=== PATIENT | female | born 1935 | race Caucasian/White ===

== ENCOUNTER 2019-04-04 18:17 | Emergency (ER) | payer BC ==
[~2019-04-04] VITALS: Ht 165.1 cm; Wt 63.5 kg
[2019-04-04 18:17] VITALS: BP 115/45
--- NOTE | 2019-04-04 18:17 | NUR ---
ED Nurse Note: PT BROUGHT IN BY RA Zavaleta FROM [facility] DUE TO WEAKNESS AND HYPOTENSION X 1 HOUR. HX OF AFIB. NS 500ML RUNNING GIVEN BY RA Zavaleta. AAO X 4, FOLLOWS COMMANDS WITH MILD SOB NOTED AT REST.
[2019-04-04] MEDS ORDERED: PREDNISONE5 M4 PO (18:28)
[2019-04-04] MEDS ORDERED: VITAMIN D-32000 UNI2 PO (18:28)
[2019-04-04] MEDS ORDERED: HYDROCODON-ACE1 EA15 ORAL (18:28)
[2019-04-04] MEDS ORDERED: ACETAZOLAMIDE125 MG ORAL (18:28)
[2019-04-04] MEDS ORDERED: SYNTHROID200 MCG ORAL (18:28)
[2019-04-04] MEDS ORDERED: SENNA8.6 M2 PO (18:28)
[2019-04-04] MEDS ORDERED: BACLOFEN10 MG ORAL (18:28)
[2019-04-04] MEDS ORDERED: CARDIZEM30 MG ORAL (18:28)
[2019-04-04] MEDS ORDERED: IPRATROPIU0.2 MG/1 M HHN (18:28)
[2019-04-04] MEDS ORDERED: ALDACTAZIDE 251 EACH ORAL (18:28)
[2019-04-04] MEDS ORDERED: DIGOXIN125 MCG ORAL (18:28)
[2019-04-04] MEDS ORDERED: POTASSIUM CHLO10 ME2 PO (18:28)
[2019-04-04] MEDS ORDERED: ACETAMINOPHEN500 M5 ORAL (18:28)
[2019-04-04] MEDS ORDERED: PANTOPRAZOLE SO20 MG ORAL (18:28)
--- NOTE | 2019-04-04 18:40 | NUR ---
ED Nurse Note: DR ROGEL WAS NOTIFIEDM OF OXYGEN SAT OF 86% IN ROOM AIR. ER MD ORDERED OXYGEN AT 2LPM.
--- NOTE | 2019-04-04 18:42 | NUR ---
ED Nurse Note: CALLED RT FOR BIPAP.
--- NOTE | 2019-04-04 19:06 | NUR ---
Laly Ritchie (emergency contact #1) called , left her phone number [phone] to be called if needed, also states patient should be going to [facility]).
--- NOTE | 2019-04-04 19:09 | NUR ---
HAND-OFF: Report given to ORALIA JOHNSON.
[2019-04-04 19:13] VITALS: BP 111/55
--- NOTE | 2019-04-04 19:13 | NUR ---
ED Nurse Note: Pt report received from ALEX Nunn. Pt is aaox4, on bipap at this time with settings noted within chart. Pt has 20g IV in R AC and 20g IV in L forearm that are both patent and intact. IV fluids infusing at this time. Pt vss as charted. Will continue to monitor.
[2019-04-04 19:20] LABS: HEMATOCRIT 37.9 % (37.0-47.0); HEMOGLOBIN 11.4 G/DL (12.0-16.0); MEAN CORPUSCULAR VOLUME 88 FL (80-99); PLATELET COUNT 229 K/UL (150-450); RED BLOOD COUNT 4.32 M/UL (4.20-5.40); RED CELL DISTRIBUTION WIDTH 18.9 % (11.6-14.8); WHITE BLOOD COUNT 10.6 K/UL (4.8-10.8)
--- NOTE | 2019-04-04 19:22 | NUR ---
ED Nurse Note: Pt states she does not have to urinate at this time and unable to give urine specimen.
--- NOTE | 2019-04-04 19:26 | Emergency Room Report ---
History of Present Illness General Chief Complaint: Generalized Weakness Source: EMS Present Illness HPI Patient is an 84-year-old female brought in by EMS after increased generalized weakness and shortness of breath. Patient had prior history of atrial fibrillation. She had been sent in from nursing facility. She was noted to have low blood pressure by EMS and was started on IV fluids.Patient was noted to be somewhat swollen. Allergies: Coded Allergies: DOXYCYCLINE (Verified Allergy, Unknown, 04/04/19) RIFAMPIN (Verified Allergy, Unknown, 04/04/19) Patient History Past Medical History: see triage record, old chart reviewed Reviewed Nursing Documentation: PMH: Agreed; PSxH: Agreed Nursing Documentation-PMH Hx Cardiac Problems: Yes - AFIB, ANEMIA, ATHEROSCLEROTIC HEART DISEASE Hx COPD: Yes Review of Systems All Other Systems: limited - Limited by mental status Physical Exam Vital Signs Date Time Temp Pulse Resp B/P (MAP) Pulse Ox O2 Delivery O2 Flow Rate FiO2 04/04/19 18:07 56 24 106/76 (86) 96 Room Air 04/04/19 18:45 40 Sp02 EP Interpretation: reviewed, normal General Appearance: normal inspection, GCS 15, obese, Chronically Ill ENT: normal ENT inspection, hearing grossly normal, normal voice Neck: normal inspection, full range of motion, supple, no bony tend Respiratory: normal inspection, no retraction Cardiovascular #1: regular rate, rhythm, edema Gastrointestinal: normal inspection, normal bowel sounds, non tender, soft, no guarding, no hernia Genitourinary: no CVA tenderness Musculoskeletal: normal inspection, back normal, normal range of motion Neurologic: alert, oriented x3, responsive, speech normal, normal inspection Psychiatric: normal inspection, judgement/insight normal, mood/affect normal Skin: no rash Medical Decision Making Diagnostic Impression: Primary Impression: CHF (congestive heart failure) Additional Impressions: Hypoxia Metabolic acidosis ER Course Patient presented for increased generalized weakness and hypotension. Differential diagnosis include was not limited to pneumonia,CHF, COPD, sepsis among others. Because of complexity of patient's case laboratory tests and imaging studies were ordered. Patient's EKG showed atrial fibrillation with normal ventricular response. Chest x-ray 1 view interpreted by me showed cardiomegaly with vascular congestion consistent with CHF. Patient was noted to have diminished oxygen saturation initially. She was started on BiPAP. Patient's initial blood pressure was noted to be somewhat hypotensive in which she was given a bolus of IV fluids initially. Nitropaste was applied. Patient was noted to have some improvement her blood pressure subsequently. Patient was also given IV antibiotics Patient was discussed with Dr.El Sheridan and patient will be transferred to [facility] for further evaluation and treatment. Labs Test 04/04/19 18:35 04/04/19 19:07 Arterial Blood pH 7.296 (7.350-7.450) Arterial Blood Partial Pressure CO2 45.5 mmHg (35.0-45.0) Arterial Blood Partial Pressure O2 54.1 mmHg (75.0-100.0) Arterial Blood HCO3 21.7 mmol/L (22.0-26.0) Arterial Blood Oxygen Saturation 83.5 % (95-100) Arterial Blood Base Excess -4.7 (-2-2) Chester Test Positive White Blood Count 10.6 K/UL (4.8-10.8) Red Blood Count 4.32 M/UL (4.20-5.40) Hemoglobin 11.4 G/DL (12.0-16.0) Hematocrit 37.9 % (37.0-47.0) Mean Corpuscular Volume 88 FL (80-99) Mean Corpuscular Hemoglobin 26.5 PG (27.0-31.0) Mean Corpuscular Hemoglobin Concent 30.1 G/DL (32.0-36.0) Red Cell Distribution Width 18.9 % (11.6-14.8) Platelet Count 229 K/UL (150-450) Mean Platelet Volume 5.7 FL (6.5-10.1) Neutrophils (%) (Auto) % (45.0-75.0) Lymphocytes (%) (Auto) % (20.0-45.0) Monocytes (%) (Auto) % (1.0-10.0) Eosinophils (%) (Auto) % (0.0-3.0) Basophils (%) (Auto) % (0.0-2.0) Prothrombin Time 10.2 SEC (9.30-11.50) Prothromb Time International Ratio 1.0 (0.9-1.1) Activated Partial Thromboplast Time 27 SEC (23-33) Sodium Level 138 MMOL/L (136-145) Potassium Level 3.8 MMOL/L (3.5-5.1) Chloride Level 103 MMOL/L (98-107) Carbon Dioxide Level 26 MMOL/L (21-32) Anion Gap 10 mmol/L (5-15) Blood Urea Nitrogen 35 mg/dL (7-18) Creatinine 1.0 MG/DL (0.55-1.30) Estimat Glomerular Filtration Rate mL/min (>60) Glucose Level 205 MG/DL (74-106) Calcium Level 10.2 MG/DL (8.5-10.1) Troponin I 0.035 ng/mL (0.000-0.056) EKG Diagnostic Results Rate: normal - atri Rhythm: other - atrial fibrillation Last Vital Signs Date Time Temp Pulse Resp B/P (MAP) Pulse Ox O2 Delivery O2 Flow Rate FiO2 04/04/19 19:13 75 17 111/55 100 Room Air 40 Status: improved Disposition: [facility] Condition: Stable Referrals: [facility],REFERRING (PCP) Chandler Peralta MD Apr 04, 2019 19:26
[2019-04-04] MEDS ORDERED: Nitroglycerin 2% oint pkt TOPIC ONE (19:30)
--- NOTE | 2019-04-04 19:41 | NUR ---
Face sheet, EKG and clinicals faxed to Jackie at [phone] per her request.
[2019-04-04 19:43] LABS: ANION GAP 10 mmol/L (5-15); BLOOD UREA NITROGEN 35 mg/dL (7-18); CALCIUM 10.2 MG/DL (8.5-10.1); CARBON DIOXIDE 26 MMOL/L (21-32); CHLORIDE 103 MMOL/L (98-107); POTASSIUM 3.8 MMOL/L (3.5-5.1); SODIUM 138 MMOL/L (136-145)
[2019-04-04 19:57] LABS: ALANINE AMINOTRANSFERASE 23 U/L (12-78); ALBUMIN 3.7 G/DL (3.4-5.0); ALKALINE PHOSPHATASE 68 U/L (46-116); ASPARTATE AMINO TRANSFERASE 17 U/L (15-37); BILIRUBIN,TOTAL 0.3 MG/DL (0.2-1.0); CREATINE KINASE 14 U/L (26-308); PHOSPHORUS 3.4 MG/DL (2.5-4.9)
[2019-04-04] MEDS ORDERED: Unasyn 1.5gm Vial ONE (19:59)
[2019-04-04] MEDS ORDERED: NS 110 ML ONE (19:59)
[2019-04-04] MEDS ORDERED: Ampicillin/Sulbactam Sod 3 GM in NS 110 ML IVPB ONE (20:00)
--- NOTE | 2019-04-04 20:45 | NUR ---
ED Nurse Note: Repeat lactic drawn by RN and sent to lab.
[2019-04-04 21:28] VITALS: BP 103/54
--- NOTE | 2019-04-04 22:33 | NUR ---
Laly(cousin, 1st contact) contacted and informed of patient being transferred to [facility].
[2019-04-04 22:39] VITALS: BP 119/56
--- NOTE | 2019-04-04 22:39 | NUR ---
ED Nurse Note: Pt sleeping comfortably at this time. No acute distress noted. Will continue to monitor. Vss as charted.
--- NOTE | 2019-04-04 22:45 | NUR ---
ED Nurse Note: Report given to ALEX Rutledge at [facility] for transfer.
--- NOTE | 2019-04-05 00:08 | NUR ---
[facility] is here now to transport patient.
[2019-04-05 00:35] VITALS: BP 109/60
--- NOTE | 2019-04-05 00:35 | NUR ---
ED Nurse Note: Pt being transferred to [facility] for continuation of care at this time. Pt transported by [facility], [facility] ambulance unit 700. Pt is aaox4, pt placed on nonrebreather for transport at 15L oxygen and is tolerating well. Pt is stable for transport. Pt IVs on R AC and L forearm are patent and intact. Pt verbalized understanding of transport. Pt belongings sent with patient/ems crew.
--- NOTE | 2019-04-05 12:45 | Diagnostic Imaging Report ---
Indication: Dyspnea Comparison: None A single view chest radiograph was obtained. Findings: There is enlargement of the cardiac silhouette with pulmonary vascular redistribution and prominence, hazy vessel margins and the suggestion of interstitial edema consistent with CHF. Aorta is mildly calcified. Bones are osteopenic. No pleural effusion seen. IMPRESSION: CHF
== END 2019-04-05 00:35 | disposition short-term general hospital (02) ==
LOC: EDBD 18:17 → EMR 18:49 → EDBEDREQ 18:51 → EMR 04-05 00:35
DX: I50.9 Heart failure, unspecified (principal); R09.02 Hypoxemia; E87.2 Acidosis; E66.9 Obesity, unspecified; Z88.8 Allergy status to other drugs, medicaments and biological substances; J44.9 Chronic obstructive pulmonary disease, unspecified; I25.10 Atherosclerotic heart disease of native coronary artery without angina pectoris; I48.91 Unspecified atrial fibrillation
CPT/HCPCS: 36415; 36600; 71045; 80053; 82550; 82553; 82803; 83605; 83735; 83880; 84100; 84484; 85007; 85025; 85610; 85730; 86850; 86900; 86901; 87040; 93005; 94664; 96361; 96365; 99285; J0295

== ENCOUNTER 2020-01-01 00:01 | Inpatient (IN) | payer BC, OTHER ==
[~2020-01-01] VITALS: Ht 157.5 cm; Wt 68.0 kg
[2020-01-01] VITALS (9 sets, daily range): BP systolic 104–154; BP diastolic 52–97
[~2020-01-01 00:01] MED LIST: ACETAMINOPHEN500 M5 ORAL; ACETAZOLAMIDE125 MG ORAL; ALDACTAZIDE 251 EACH ORAL; BACLOFEN10 MG ORAL; CARDIZEM30 MG ORAL; DIGOXIN125 MCG ORAL; HYDROCODON-ACE1 EA15 ORAL; IPRATROPIU0.2 MG/1 M HHN; PANTOPRAZOLE SO20 MG ORAL; POTASSIUM CHLO10 ME2 PO; PREDNISONE5 M4 PO; SENNA8.6 M2 PO; SYNTHROID200 MCG ORAL; VITAMIN D-32000 UNI2 PO
--- NOTE | 2020-01-01 00:05 | NUR ---
ED Nurse Note: pt PEARL AMANDA RA 26 from [facility] for SOB, EMS report that pt was satting at 85% on 2L NC. pt is normally on 2L at the facility, EMS placed pt on 10L NRB mask and brought her saturation up to 100%. pt presents tachypneic at 30 respirations a minute, she is responsive to pain and occasionally opens her eyes. EMS do not know what baseline is for pt. pt's skin is hot to touch, otherwise intact. pt has L forearm IV line placed at [facility] that is flushing, patent and intact
--- NOTE | 2020-01-01 00:10 | NUR ---
ED Nurse Note: R forearm 20 gauge IV line establishd. blood, urine and COVID swab sent to lab. rectal temp is 102.5, ERMD notified
--- NOTE | 2020-01-01 00:13 | Emergency Room Report ---
History of Present Illness Present Illness HPI Patient is an 84-year-old female sent in from convalescent home after diminished oxygen saturation. Patient was sent in from [facility]. Patient was noted to have prior history of chronic respiratory failure as well as atrial fibrillation. She is normally on digoxin. Was noted to have low oxygen saturation at her facility. Patient started on nonrebreather by EMS. History is markedly limited by patient's mental status. Allergies: Coded Allergies: DOXYCYCLINE (Verified Allergy, Unknown, 04/04/19) RIFAMPIN (Verified Allergy, Unknown, 04/04/19) Patient History Past Medical History: see triage record Reviewed Nursing Documentation: PMH: Agreed; PSxH: Agreed Nursing Documentation-PMH Hx Cardiac Problems: Yes - AFIB, ANEMIA, ATHEROSCLEROTIC HEART DISEASE Hx COPD: Yes Review of Systems All Other Systems: negative except mentioned in HPI Physical Exam Sp02 EP Interpretation: reviewed, normal General Appearance: normal inspection, non-toxic, obese, Chronically Ill Head: atraumatic ENT: normal ENT inspection, hearing grossly normal, normal voice Neck: supple, no bony tend, limited range of motion Respiratory: normal inspection, no respiratory distress, no retraction, rales Cardiovascular #1: regular rate, rhythm, edema Gastrointestinal: normal inspection, normal bowel sounds, non tender, soft, no guarding, no hernia Genitourinary: no CVA tenderness Musculoskeletal: back normal Neurologic: oriented x3, other - Somnolent with gag reflex present, withdraws to pain Skin: palpation normal Procedures Critical Care Time Critical Care Time Patient had a critical medical condition which untreated could potentially result in life or limb threatening injury. Total critical care time excluding procedures approximately 45 minutes. Medical Decision Making Diagnostic Impression: Primary Impression: 2019 novel coronavirus detected Additional Impressions: CHF (congestive heart failure) Atrial fibrillation CO2 retention Chronic respiratory failure ER Course Patient presented for shortness of breath and desaturation. Differential diagnosis include was not limited to pneumonia, congestive heart failure, coronavirus infection, CO2 narcosis among others. Because of complexity of patient's case laboratory tests and imaging studies were ordered.Patient laboratory testing was noted for elevated BNP with negative troponin. Given IV Decadron. Arterial blood gas showed CO2 retention. Patient was initially on nonrebreather was subsequently switched to BiPAP. Repeat ABG showed improvement in CO2 with continued respiratory acidosis. Patient's inspiratory pressure was subsequently increased. Patient was discussed with Dr. Peguero for inpatient management due to physician covering for Dr. Jansen who is patient primary care. Labs Test 01/01/20 00:15 01/01/20 00:30 01/01/20 01:15 White Blood Count 9.6 K/UL (4.8-10.8) Red Blood Count 4.46 M/UL (4.20-5.40) Hemoglobin 11.8 G/DL (12.0-16.0) Hematocrit 38.3 % (37.0-47.0) Mean Corpuscular Volume 86 FL (80-99) Mean Corpuscular Hemoglobin 26.4 PG (27.0-31.0) Mean Corpuscular Hemoglobin Concent 30.7 G/DL (32.0-36.0) Red Cell Distribution Width 16.6 % (11.6-14.8) Platelet Count 180 K/UL (150-450) Mean Platelet Volume 7.6 FL (6.5-10.1) Neutrophils (%) (Auto) 75.5 % (45.0-75.0) Lymphocytes (%) (Auto) 5.8 % (20.0-45.0) Monocytes (%) (Auto) 12.6 % (1.0-10.0) Eosinophils (%) (Auto) 0.1 % (0.0-3.0) Basophils (%) (Auto) 6.1 % (0.0-2.0) Prothrombin Time 10.7 SEC (9.30-11.50) Prothromb Time International Ratio 1.0 (0.9-1.1) Activated Partial Thromboplast Time 28 SEC (23-33) D-Dimer 0.87 mg/L FEU (0.00-0.49) Sodium Level 137 MMOL/L (136-145) Potassium Level 4.9 MMOL/L (3.5-5.1) Chloride Level 98 MMOL/L (98-107) Carbon Dioxide Level 37 MMOL/L (21-32) Anion Gap 2 mmol/L (5-15) Blood Urea Nitrogen 29 mg/dL (7-18) Creatinine 0.9 MG/DL (0.55-1.30) Estimat Glomerular Filtration Rate 59.7 mL/min (>60) Glucose Level 149 MG/DL (74-106) Lactic Acid Level 0.70 mmol/L (0.4-2.0) Calcium Level 10.1 MG/DL (8.5-10.1) Ferritin 1762 NG/ML (8-388) Total Bilirubin 0.5 MG/DL (0.2-1.0) Aspartate Amino Transf (AST/SGOT) 32 U/L (15-37) Alanine Aminotransferase (ALT/SGPT) 18 U/L (12-78) Alkaline Phosphatase 49 U/L (46-116) Lactate Dehydrogenase 321 U/L (81-234) Total Creatine Kinase 28 U/L (26-308) Creatine Kinase MB 0.6 NG/ML (0.0-3.6) Creatine Kinase MB Relative Index 2.1 Troponin I 0.062 ng/mL (0.000-0.056) C-Reactive Protein, Quantitative 16.7 mg/dL (0.00-0.90) Pro-B-Type Natriuretic Peptide 3923 pg/mL (0-125) Total Protein 8.1 G/DL (6.4-8.2) Albumin 3.1 G/DL (3.4-5.0) Globulin 5.0 g/dL Albumin/Globulin Ratio 0.6 (1.0-2.7) Lipase 114 U/L (73-393) Digoxin Level < 0.2 NG/ML (0.9-2.0) Urine Color Yellow Urine Appearance Slightly cloudy Urine pH 5 (4.5-8.0) Urine Specific [place]on 1.020 (1.005-1.035) Urine Protein 3+ (NEGATIVE) Urine Glucose (UA) Negative (NEGATIVE) Urine Ketones Negative (NEGATIVE) Urine Blood 3+ (NEGATIVE) Urine Nitrite Negative (NEGATIVE) Urine Bilirubin Negative (NEGATIVE) Urine Urobilinogen 1 MG/DL (0.0-1.0) Urine Leukocyte Esterase Negative (NEGATIVE) Urine RBC 5-10 /HPF (0 - 2) Urine WBC 0-2 /HPF (0 - 2) Urine Squamous Epithelial Cells Few /LPF (NONE/OCC) Urine Amorphous Sediment Moderate /LPF (NONE) Urine Bacteria Few /HPF (NONE) Urine Coarse Granular Casts 0-2 /LPF (NONE) Arterial Blood pH 7.183 (7.350-7.450) Arterial Blood Partial Pressure CO2 129.0 mmHg (35.0-45.0) Arterial Blood Partial Pressure O2 170.0 mmHg (75.0-100.0) Arterial Blood HCO3 47.4 mmol/L (22.0-26.0) Arterial Blood Oxygen Saturation 98.8 % (95-100) Arterial Blood Base Excess 14.5 (-2-2) Chester Test Positive EKG Diagnostic Results Rate: normal Rhythm: NSR ST Segments: no acute changes Status: improved Disposition: ADMITTED INPATIENT Condition: Serious Chandler Peralta MD Jan 01, 2020 00:13
[2020-01-01] MEDS ORDERED: ASCORBIC ACID500 MG ORAL (00:19)
[2020-01-01] MEDS ORDERED: ASPIRIN81 MG ORAL (00:20)
[2020-01-01] MEDS ORDERED: ATORVASTATIN CA40 MG ORAL (00:21)
[2020-01-01] MEDS ORDERED: AZITHROMYCIN500 MG ORAL (00:23)
[2020-01-01] MEDS ORDERED: BUDESONIDE0.5 MG/2 M IH (00:27)
[2020-01-01] MEDS ORDERED: DOCUSATE SODIU100 MG ORAL (00:30)
[2020-01-01] MEDS ORDERED: FAMOTIDINE20 MG ORAL (00:32)
[2020-01-01] MEDS ORDERED: FERROUSUL325 M1 PO (00:34)
[2020-01-01] MEDS ORDERED: HYDRALAZINE HCL25 M1 ORAL (00:35)
[2020-01-01] MEDS ORDERED: MULTIVITAMINS1 EAC8 ORAL (00:36)
[2020-01-01] MEDS ORDERED: LEVOTHYROXINE125 MCG ORAL (00:36)
[2020-01-01] MEDS ORDERED: PERIDEX15 ML MM (00:37)
[2020-01-01] MEDS ORDERED: Acetaminophen 650 MG SUPP RECTAL ONE ×2 (00:38→00:45)
[2020-01-01] MEDS ORDERED: POLYETHYLENE GL17 GM ORAL (00:38)
[2020-01-01] MEDS ORDERED: PREDNISOLO15 MG/5 M1 ORAL (00:39)
[2020-01-01] MEDS ORDERED: LANTUS SOL100 UNIT/1 SUBQ (00:40)
[2020-01-01] MEDS ORDERED: ZINC-220220 MG ORAL (00:41)
[2020-01-01 00:44] LABS: APPEARANCE,URINE SLIGHTLY CLOUDY; BILIRUBIN, URINE NEGATIVE (NEGATIVE); GLUCOSE, URINE (UA) NEGATIVE (NEGATIVE); KETONES,URINE NEGATIVE (NEGATIVE); LEUKOCYTE ESTERASE ,URINE NEGATIVE (NEGATIVE); NITRITE,URINE NEGATIVE (NEGATIVE); PH,URINE 5 (4.5-8.0); PROTEIN,URINE 3+ (NEGATIVE); UROBILINOGEN,URINE 1 MG/DL (0.0-1.0)
[2020-01-01 00:44] LABS: BASOPHILS % (AUTO) 6.1 % (0.0-2.0); EOSINOPHILS % (AUTO) 0.1 % (0.0-3.0); HEMATOCRIT 38.3 % (37.0-47.0); HEMOGLOBIN 11.8 G/DL (12.0-16.0); LYMPHOCYTES % (AUTO) 5.8 % (20.0-45.0); MEAN CORPUSCULAR VOLUME 86 FL (80-99); MONOCYTES % (AUTO) 12.6 % (1.0-10.0); NEUTROPHILS % (AUTO) 75.5 % (45.0-75.0); PLATELET COUNT 180 K/UL (150-450); RED BLOOD COUNT 4.46 M/UL (4.20-5.40); RED CELL DISTRIBUTION WIDTH 16.6 % (11.6-14.8); WHITE BLOOD COUNT 9.6 K/UL (4.8-10.8)
[2020-01-01] MEDS ORDERED: Cefepime HCl 1 GM in D5W 55 ML IVPB ONE (00:45)
[2020-01-01 00:47] LABS: COLOR,URINE YELLOW
[2020-01-01 00:57] LABS: CALCIUM 10.1 MG/DL (8.5-10.1); CREATININE 0.9 MG/DL (0.55-1.30); POTASSIUM 4.9 MMOL/L (3.5-5.1)
--- NOTE | 2020-01-01 01:06 | Diagnostic Imaging Report ---
EXAM: XR Chest, 1 View CLINICAL HISTORY: SOB TECHNIQUE: Frontal view of the chest. COMPARISON: No relevant prior studies available. FINDINGS: Lungs: Centrally predominant interstitial and airspace opacities, interstitial edema most likely. Lingular and basilar atelectasis. Pleural space: No pleural effusion. No pneumothorax. Heart: Cardiomegaly. Bones/joints: Unremarkable. IMPRESSION: 1. Centrally predominant interstitial and airspace opacities, pulmonary edema most likely. 2. Cardiomegaly.
[2020-01-01 01:15] LABS: ALBUMIN 3.1 G/DL (3.4-5.0); ALBUMIN/GLOBULIN RATIO 0.6 (1.0-2.7); BILIRUBIN,TOTAL 0.5 MG/DL (0.2-1.0); CKMB 0.6 NG/ML (0.0-3.6)
--- NOTE | 2020-01-01 01:50 | NUR ---
ED Nurse Note: RT at pt bedside placing her on bi-pap per ERMD orders
--- NOTE | 2020-01-01 02:35 | NUR ---
ED Nurse Note: ERMD gave verbal order for saturation to be at 92%, RT at pt bedside changing bi-pap settings. pt was at 15/5 with FiO2 of 60% now at FiO2 of 45%, satting at 92%
--- NOTE | 2020-01-01 03:00 | NUR ---
ED Nurse Note: RT at pt bedside drawing ABG
--- NOTE | 2020-01-01 03:32 | NUR ---
Note [place] in ED - 01/01/20 at 0348 by JOANIE Patients BP remains around 170-180,however patient insisting to go back home-have no dizziness,no headache, states he feels much better now. [facility] [id number]. Patient notified, states he may try to call LUCRETIA himself but first he wants to check with B&C if its OK. ER also aware of patients condition.
--- NOTE | 2020-01-01 04:13 | NUR ---
ED Nurse Note: report given to ALEX Holloway
--- NOTE | 2020-01-01 04:30 | NUR ---
NURSE NOTES: Received pt from ED via gurney. Pt transferred to [facility] without any incident. Received report from ALEX Bhatt. Pt is A/Ox1. [place] pt to room and unit. Pt is drowsy, but is able to follow simple commands such as turn to the left side and right side. library monitor is in placed; pt is NSR. IV site intact, asymptomatic, and patent. Belongings list checked and signed; pt has langtaojin smart phone at bedside. Pt is on BiPAP 15/5 FiO2 30%; sating at 95%. Bed is in the lowest position and locked. Call light and bedside table is within reach. Will contact MD for admission orders.
--- NOTE | 2020-01-01 06:30 | NUR ---
NURSE NOTES: Contacted Dr. Peguero for admission orders. Awaiting call back.
[2020-01-01] MEDS ORDERED: Miralax 17gm pkt ORAL PRN (07:00)
[2020-01-01] MEDS ORDERED: Albuterol/Ipratropium 3ml neb HHN PRN (07:00)
[2020-01-01] MEDS ORDERED: Promethazine/Codeine 5ml UD ORAL PRN (07:00)
--- NOTE | 2020-01-01 07:20 | NUR ---
NURSE NOTES: Received admission orders from Dr. Graves.
--- NOTE | 2020-01-01 07:25 | NUR ---
NURSE NOTES: pt in bed resting and using bipap. Bed is in lowest position, call light within reach. Pt on telemetry monitor no signs of cardiac distress. Pt has some redness on sacral and bilateral heels. Will continue to monitor pt.
--- NOTE | 2020-01-01 07:45 | NUR ---
NURSE HAND-OFF REPORT: Important Events on Shift: Pt admitted to [facility] for COVID +/Hypoxia. Pt on BiPAP 15/5 FiO2 30%. Patient Status: Ongoing Diet: --- Pending Orders: Venous Duplex bilateral legs, 2D Echo, Chest XRay Pending Results/Labs: MRSA, VRE, CRE swabs pending Pending MD notification: N Latest Vital Signs: Temperature 97.7 , Pulse 70 , B/P 120 /77 , Respiratory Rate 22 , O2 SAT 95 , Bi-pap, O2 Flow Rate 10.0 . EKG Rhythm: Sinus Rhythm Rhythm change?: N Latest Shaw Fall Score: 50 Fall Risk: High Risk Safety Measures: Call light Within Reach, Bed Alarm Zone 1, Side Rails Side Rails x2, Bed position Low and Locked. Fall Precautions: Yellow Socks Yellow Gown Door Sign Patient Fall Education Report given to ALEX Arguello.
--- NOTE | 2020-01-01 08:36 | Consultation ---
History of Present Illness General Date patient seen: Jan 01, 2020 Chief Complaint: Dyspnea/Respdistress Present Illness HPI 84-year-old female with hx of DM, Hypothyroid, A-fib, [facility] presented to Er with CC of diminished oxygen saturation. Patient started on non rebreather by EMS. History is markedly limited by patient's mental status. She had a temp of 102 in ER and is admitted to [facility] for further treatment. Allergies: Coded Allergies: DOXYCYCLINE (Verified Allergy, Unknown, 04/04/19) RIFAMPIN (Verified Allergy, Unknown, 04/04/19) Medication History Scheduled Acetaminophen (Acetaminophen), 650 MG ORAL Q4H, (Reported) Acetazolamide (Acetazolamide), 250 MG ORAL DAILY, (Reported) Ascorbic Acid* (Ascorbic Acid*), 500 MG ORAL THREE TIMES A DAY, (Reported) Aspirin* (Aspirin*), 81 MG ORAL DAILY, (Reported) Atorvastatin Calcium* (Atorvastatin Calcium*), 80 MG ORAL BEDTIME, (Reported) Azithromycin (Azithromycin), 500 MG ORAL DAILY, (Reported) Baclofen* (Baclofen*), 10 MG ORAL THREE TIMES A DAY, (Reported) Digoxin* (Digoxin*), 125 MCG ORAL DAILY, (Reported) Diltiazem HCl (Diltiazem 12Hr ER), 60 MG ORAL EVERY 12 HOURS, (Reported) Docusate Sodium* (Docusate Sodium*), 100 MG ORAL TWICE A DAY, (Reported) Famotidine* (Pepcid 20mg tablet*), 20 MG ORAL DAILY, (Reported) Ferrous Sulfate (Ferrousul), 3,000 MG PO 3 times a day, (Reported) Hydralazine Hcl* (Hydralazine Hcl*), 25 MG ORAL EVERY 8 HOURS, (Reported) Insulin Glargine (Lantus), 5 SUBQ Q12HR, (Reported) Levothyroxine Sodium (Synthroid), 150 MCG ORAL DAILY, (Reported) Levothyroxine Sodium* (Levothyroxine Sodium*), 200 MCG ORAL DAILY, (Reported) Multivitamin With Minerals (Multivitamins With Minerals*), 1 TAB ORAL DAILY, (Reported) Pantoprazole (Pantoprazole), 40 MG ORAL DAILY, (Reported) Spironolact/Hydrochlorothiazid (Aldactazide 25-25 Tablet), 1 TAB ORAL DAILY, (Reported) Zinc Sulfate (Zinc-220*), 220 MG ORAL DAILY, (Reported) Scheduled PRN Hydrocodone/Acetaminophen 5-325* (Hydrocodone/Acetaminophen 5-325*), 1 TAB ORAL Q6H PRN for For Pain, (Reported) Ipratropium Staples 0.5MG/2.5ML (Ipratropium Staples 0.5MG/2.5ML), 0.5 MG HHN Q6H PRN for Shortness of Breath, (Reported) Polyethylene Glycol 3350* (Polyethylene Glycol 3350*), 17 GM ORAL BEDTIME PRN for Constipation, (Reported) Miscellaneous Medications Budesonide (Budesonide), 0.5 MG IH, (Reported) Chlorhexidine Gluconate (Peridex), 15 ML MM, (Reported) Cholecalciferol (Vitamin D3) (Vitamin D-3), 1,000 UNIT PO, (Reported) Potassium Chloride (Potassium Chloride), 10 MEQ PO, (Reported) Prednisolone* (Prelone*), 20 MG ORAL, (Reported) Prednisone (Prednisone), 30 MG PO, (Reported) Sennosides (Senna), 8.6 MG PO, (Reported) Patient History Healthcare decision maker Resuscitation status Advanced Directive on File Past Medical/Surgical History Past Medical/Surgical History: (1) Atrial fibrillation (2) Hypothyroidism (3) History of hypertension (4) Diabetes mellitus Review of Systems All Other Systems: negative except mentioned in HPI Physical Exam General Appearance: WD/WN Lines, tubes and drains: peripheral HEENT: normocephalic, atraumatic Neck: non-tender, normal alignment Respiratory/Chest: chest wall non-tender, lungs clear Breasts: no masses Cardiovascular/Chest: normal peripheral pulses Abdomen: normal bowel sounds, non tender Genitourinary/Rectal: normal genital exam Extremities: normal range of motion, non-tender Skin Exam: normal pigmentation 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 grossly normal Last 24 Hour Vital Signs Date Time Temp Pulse Resp B/P (MAP) Pulse Ox O2 Delivery O2 Flow Rate FiO2 01/01/20 07:53 67 20 94 Bi-Pap 35 01/01/20 07:47 67 20 94 35 01/01/20 06:25 30 01/01/20 04:59 70 01/01/20 04:50 Bi-Pap 01/01/20 04:35 97.7 70 22 120/77 (91) 95 01/01/20 04:25 102.0 66 20 149/89 88 Bi-pap 10.0 30 01/01/20 04:04 66 20 149/89 88 Bi-pap 30 01/01/20 03:26 70 20 90 30 01/01/20 02:11 94 23 99 60 01/01/20 01:59 102.0 89 20 147/87 99 Bi-pap 01/01/20 01:58 102.0 01/01/20 00:54 102.5 99 20 154/97 100 Non-Rebreather 10.0 01/01/20 00:54 94 20 Room Air 01/01/20 00:11 94 20 100 Room Air Intake and Output 12/31/19 01/01/20 19:00 07:00 Intake Total 0 ml Balance 0 ml Intake Oral 0 ml # Bowel Movements 1 Laboratory Tests Test 01/01/20 00:15 01/01/20 00:30 01/01/20 01:15 01/01/20 03:04 White Blood Count 9.6 K/UL (4.8-10.8) Red Blood Count 4.46 M/UL (4.20-5.40) Hemoglobin 11.8 G/DL (12.0-16.0) L Hematocrit 38.3 % (37.0-47.0) Mean Corpuscular Volume 86 FL (80-99) Mean Corpuscular Hemoglobin 26.4 PG (27.0-31.0) L Mean Corpuscular Hemoglobin Concent 30.7 G/DL (32.0-36.0) L Red Cell Distribution Width 16.6 % (11.6-14.8) H Platelet Count 180 K/UL (150-450) Mean Platelet Volume 7.6 FL (6.5-10.1) Neutrophils (%) (Auto) 75.5 % (45.0-75.0) H Lymphocytes (%) (Auto) 5.8 % (20.0-45.0) L Monocytes (%) (Auto) 12.6 % (1.0-10.0) H Eosinophils (%) (Auto) 0.1 % (0.0-3.0) Basophils (%) (Auto) 6.1 % (0.0-2.0) H Prothrombin Time 10.7 SEC (9.30-11.50) Prothromb Time International Ratio 1.0 (0.9-1.1) Activated Partial Thromboplast Time 28 SEC (23-33) D-Dimer 0.87 mg/L FEU (0.00-0.49) H Sodium Level 137 MMOL/L (136-145) Potassium Level 4.9 MMOL/L (3.5-5.1) Chloride Level 98 MMOL/L (98-107) Carbon Dioxide Level 37 MMOL/L (21-32) H Anion Gap 2 mmol/L (5-15) L Blood Urea Nitrogen 29 mg/dL (7-18) H Creatinine 0.9 MG/DL (0.55-1.30) Estimat Glomerular Filtration Rate 59.7 mL/min (>60) Glucose Level 149 MG/DL (74-106) H Lactic Acid Level 0.70 mmol/L (0.4-2.0) Calcium Level 10.1 MG/DL (8.5-10.1) Ferritin 1762 NG/ML (8-388) H Total Bilirubin 0.5 MG/DL (0.2-1.0) Aspartate Amino Transf (AST/SGOT) 32 U/L (15-37) Alanine Aminotransferase (ALT/SGPT) 18 U/L (12-78) Alkaline Phosphatase 49 U/L (46-116) Lactate Dehydrogenase 321 U/L (81-234) H Total Creatine Kinase 28 U/L (26-308) Creatine Kinase MB 0.6 NG/ML (0.0-3.6) Creatine Kinase MB Relative Index 2.1 Troponin I 0.062 ng/mL (0.000-0.056) C-Reactive Protein, Quantitative 16.7 mg/dL (0.00-0.90) H Pro-B-Type Natriuretic Peptide 3923 pg/mL (0-125) H Total Protein 8.1 G/DL (6.4-8.2) Albumin 3.1 G/DL (3.4-5.0) L Globulin 5.0 g/dL Albumin/Globulin Ratio 0.6 (1.0-2.7) L Lipase 114 U/L (73-393) Digoxin Level < 0.2 NG/ML (0.9-2.0) L Urine Color Yellow Urine Appearance Slightly cloudy Urine pH 5 (4.5-8.0) Urine Specific [place] 1.020 (1.005-1.035) Urine Protein 3+ (NEGATIVE) H Urine Glucose (UA) Negative (NEGATIVE) Urine Ketones Negative (NEGATIVE) Urine Blood 3+ (NEGATIVE) H Urine Nitrite Negative (NEGATIVE) Urine Bilirubin Negative (NEGATIVE) Urine Urobilinogen 1 MG/DL (0.0-1.0) H Urine Leukocyte Esterase Negative (NEGATIVE) Urine RBC 5-10 /HPF (0 - 2) H Urine WBC 0-2 /HPF (0 - 2) Urine Squamous Epithelial Cells Few /LPF (NONE/OCC) Urine Amorphous Sediment Moderate /LPF (NONE) H Urine Bacteria Few /HPF (NONE) Urine Coarse Granular Casts 0-2 /LPF (NONE) H Arterial Blood pH 7.183 (7.350-7.450) 7.241 (7.350-7.450) Arterial Blood Partial Pressure CO2 129.0 mmHg (35.0-45.0) *H 94.0 mmHg (35.0-45.0) *H Arterial Blood Partial Pressure O2 170.0 mmHg (75.0-100.0) H 69.9 mmHg (75.0-100.0) L Arterial Blood HCO3 47.4 mmol/L (22.0-26.0) *H 39.5 mmol/L (22.0-26.0) H Arterial Blood Oxygen Saturation 98.8 % (95-100) 93.1 % (95-100) L Arterial Blood Base Excess 14.5 (-2-2) *H 9.3 (-2-2) *H Chester Test Positive Positive Microbiology Date/Time Source Procedure Growth Status 01/01/20 04:00 Rectum Received 01/01/20 00:20 Nasopharynx SARS-CoV-2 RdRp Gene Assay - Final Complete Height (Feet): 5 Height (Inches): 2.00 Weight (Pounds): 155 Medications Current Medications Medications (Trade) Dose Ordered Sig/Brett Route PRN Reason Start Time Stop Time Status Last Admin Dose Admin Acetaminophen (Tylenol) 650 mg Q4H PRN ORAL FEVER 01/01/20 07:00 01/31/20 06:59 UNV Albuterol/ Ipratropium (Albuterol/ Ipratropium) 3 ml EVERY 4 HOURS PRN HHN Shortness of Breath 01/01/20 07:00 01/06/20 06:59 UNV Baclofen (Lioresal) 10 mg THREE TIMES A DAY ORAL 01/01/20 09:00 01/31/20 08:59 UNV Ceftriaxone Sodium 1 gm/ Dextrose 55 ml @ 110 mls/hr Q24H IVPB 01/01/20 07:00 01/08/20 06:59 UNV Dexamethasone (Decadron) 4 mg DAILY ORAL 01/01/20 09:00 01/31/20 08:59 UNV Dextrose (Dextrose 50%) 25 ml Q30M PRN IV Hypoglycemia 01/01/20 07:00 03/31/20 06:59 UNV Dextrose (Dextrose 50%) 50 ml Q30M PRN IV Hypoglycemia 01/01/20 07:00 03/31/20 06:59 UNV Digoxin (Lanoxin) 0.125 mg DAILY ORAL 01/01/20 09:00 03/31/20 08:59 UNV Diltiazem HCl (Cardizem Tab) 60 mg EVERY 12 HOURS ORAL 01/01/20 09:00 01/31/20 08:59 UNV Heparin Sodium (Porcine) (Heparin 5000 units/ml) 5,000 units EVERY 12 HOURS SUBQ 01/01/20 09:00 02/15/20 08:59 UNV Hydralazine HCl (Apresoline) 25 mg EVERY 8 HOURS ORAL 01/01/20 14:00 03/31/20 13:59 UNV Levothyroxine Sodium (Synthroid) 150 mcg DAILY ORAL 01/01/20 09:00 01/31/20 08:59 UNV Ondansetron HCl (Zofran) 4 mg Q6H PRN IVP Nausea & Vomiting 01/01/20 07:00 01/31/20 06:59 UNV Polyethylene Glycol (Miralax) 17 gm DAILYPRN PRN ORAL Constipation 01/01/20 07:00 01/31/20 06:59 UNV Promethazine HCl/ Codeine (Phenergan with Codeine) 5 ml EVERY 6 HOURS PRN ORAL cough 01/01/20 07:00 01/31/20 06:59 UNV Assessment/Plan Problem List: (1) 2019 novel coronavirus detected ICD Codes: U07.1 - COVID-19 SNOMED: 588362496, 226049916 (2) Acute on chronic systolic (congestive) heart failure ICD Codes: I50.23 - Acute on chronic systolic (congestive) heart failure SNOMED: 149238329, 638784375 (3) Atrial fibrillation ICD Codes: I48.91 - Unspecified atrial fibrillation SNOMED: 61535131, 285179300 (4) Chronic respiratory failure ICD Codes: J96.10 - Chronic respiratory failure, unspecified whether with hypoxia or hypercapnia SNOMED: 86510312, 266884113 (5) Hypothyroidism ICD Codes: E03.9 - Hypothyroidism, unspecified SNOMED: 54737251 (6) History of hypertension ICD Codes: Z86.79 - Personal history of other diseases of the circulatory system SNOMED: 694318955 (7) Diabetes mellitus ICD Codes: E11.9 - Type 2 diabetes mellitus without complications SNOMED: 09184511 Assessment/Plan: mcdermott culture ID evaluation echo diuretics f/u cxr and BNP abx as per ID check electrolytes sliding scale swallow study npo for now Ann-Marie Gravse MD Jan 01, 2020 08:36
[2020-01-01] MEDS: cefTRIAXone 1 GM in D5W 55 ML IVPB SCH (09:31)
[2020-01-01] MEDS: Heparin 5000 units/ml inj SUBQ SCH ×2 (09:33→20:12)
[2020-01-01] MEDS: Digoxin 0.125mg tab ORAL SCH (09:45)
[2020-01-01] MEDS: dilTIAZem HCl 30mg tab ORAL SCH ×2 (09:45→20:06)
--- NOTE | 2020-01-01 12:00 | NUR ---
NURSE NOTES: notified doctor Ely pt is NPO, and does not have fluids. B/S 167. Waiting on orders.
[2020-01-01] MEDS: NovoLOG Insulin Flexpen SUBQ SCH ×3 (13:38→20:06)
--- NOTE | 2020-01-01 15:27 | NUR ---
NURSE NOTES: NOtified doctor Ely about changes in rhythm.
[2020-01-01] MEDS: HydrALAZINE 25mg tab ORAL SCH ×2 (16:44→22:22)
--- NOTE | 2020-01-01 17:11 | History & Physical ---
History and Physical History & Physicial Dictated for Int Med-DR Peguero no. [id number] Harris Greenfiedl MD Jan 01, 2020 17:11
--- NOTE | 2020-01-01 18:15 | History and Physical Report ---
DATE OF ADMISSION: 01/01/2020 CHIEF COMPLAINT: The patient is an 84-year-old female, who presents with chief complaint of decreased oxygen saturation. HISTORY OF PRESENT ILLNESS: The patient was admitted to [facility] [place] December 19, 2019. The patient apparently was admitted with respiratory failure. The patient was discharged to [facility]. According to staff at [facility], the patient began to have decreased oxygen saturation on January 01, 2020. The patient was transferred to [facility] Emergency Room. The patient was found to be COVID-19 positive. The patient is admitted with hypoxia and COVID-19 pneumonia. REVIEW OF SYSTEMS: Unable to assess secondary to the patient's mental status. PAST MEDICAL HISTORY: Significant for, 1. Hypertension. 2. Atrial fibrillation. 3. Chronic obstructive pulmonary disease. 4. Coronary artery disease. 5. Congestive heart failure. 6. Diabetes type 2. 7. Hypothyroidism. 8. Hypercholesterolemia. 9. Rheumatoid arthritis. 10. Gastroesophageal reflux disease. PAST SURGICAL HISTORY: Unknown. CURRENT MEDICATIONS: 1. Tylenol 650 mg p.o. q.4h. p.r.n. 2. Acetazolamide 250 mg p.o. daily. 3. Vitamin C 500 mg p.o. 3 times daily. 4. Aspirin 81 mg p.o. daily. 5. Atorvastatin 80 mg p.o. at bedtime. 6. Vitamin D3 2000 units p.o. daily. 7. Digoxin 125 mcg p.o. daily. 8. Diltiazem 60 mg p.o. twice daily. 9. Famotidine 20 mg p.o. daily. 10. Iron sulfate 325 mg p.o. 3 times daily. 11. Hydralazine 25 mg p.o. q.8h. 12. Vicodin 5/325 mg one tablet p.o. q.6h. p.r.n. 13. Lantus insulin 5 units subcutaneously twice daily. 14. Levoxyl 0.15 mg p.o. daily. 15. Multivitamin p.o. daily. 16. Pantoprazole 20 mg p.o. daily. 17. Prednisone 20 mg p.o. daily. 18. Spironolactone/hydrochlorothiazide 25/25 one tablet p.o. daily. ALLERGIES: To doxycycline and rifampin. SOCIAL HISTORY: The patient is single and is a resident of [facility]. The patient has a previous history of tobacco use, however, quit many years ago. The patient denies alcohol use. PHYSICAL EXAMINATION: VITAL SIGNS: Temperature 102.5, respirations 20, pulse 99, blood pressure 154/97. GENERAL: The patient is a well-developed and well-nourished female, in moderate respiratory distress. HEENT: Eyes, pupils equal and responsive to light and accommodation. Extraocular movements are intact. NECK: Supple without lymphadenopathy. CHEST: Decreased breath sounds at bilateral bases with crackles. Otherwise, without wheezes. CARDIOVASCULAR: Regular rhythm and rate. S1, S2 normal without murmurs, rubs, or gallops. ABDOMEN: Soft, nontender, and nondistended. Positive bowel sounds. No evidence of hepatosplenomegaly. Currently, no rebound or guarding noted. EXTREMITIES: Negative for clubbing, cyanosis, or edema. RECTAL/GENITAL: Not performed. NEUROLOGIC: Cranial nerves II through XII are grossly intact without focal deficits. LABORATORY STUDIES: WBC 9.6, hemoglobin 11.8, hematocrit 38.3, platelets 180,000. Sodium 137, potassium 4.9, chloride 98, CO2 37, BUN 29, creatinine 0.9, glucose 149. Troponin elevated at 0.062. Chest x-ray revealed bilateral pulmonary opacities consistent with pneumonia. ASSESSMENT: This is an 84-year-old female with: 1. COVID-19 positive. 2. Bilateral pneumonia. 3. Hypertension. 4. Atrial fibrillation. 5. Chronic obstructive pulmonary disease. 6. Coronary artery disease. 7. Congestive heart failure. 8. Diabetes type 2. 9. Hypothyroidism. 10. Hypercholesterolemia. 11. Rheumatoid arthritis. 12. Gastroesophageal reflux disease. TREATMENT: 1. COVID-19 positive/pneumonia. A Pulmonary consultation has been obtained with Dr. Ann-Marie Graves. The patient has been started empirically on intravenous ceftriaxone. Follow recommendations of Pulmonary. 2. Hypertension. Continue hydralazine as above. 3. Atrial fibrillation. Continue digoxin as above. 4. Chronic obstructive pulmonary disease. As above, a Pulmonary consultation has been obtained with Dr. Ann-Marie Graves. The patient is currently on albuterol nebulized q.4h. p..r.n. 5. Coronary disease/congestive heart failure. An echocardiogram is pending. A Cardiology consultation has been obtained with Dr. Gaming. 6. Diabetes type 2. NovoLog sliding scale has been instituted. 7. Hypothyroidism. Continue Synthroid as above. 8. Hypercholesterolemia. Continue atorvastatin as above. 9. Rheumatoid arthritis. 10. Gastroesophageal reflux disease. Continue Protonix as above. Harris Greenfield M.D. DR: ABBI JOB#: [id number] CC:
--- NOTE | 2020-01-01 19:27 | NUR ---
NURSE HAND-OFF REPORT: Important Events on Shift:pt to stay NPO until swallow eval./ doctor Camilo, Patient Status: full code Diet: NPO Pending Orders: morning labs Pending Results/Labs: Pending MD notification: Latest Vital Signs: Temperature 98.1 , Pulse 80 , B/P 129 /75 , Respiratory Rate 22 , O2 SAT 89 , Bi-pap, O2 Flow Rate 10.0 . Vital Sign Comment: EKG Rhythm: Sinus Rhythm Rhythm change?: N MD Notified?: - MD Response: Latest Shaw Fall Score: 50 Fall Risk: High Risk Safety Measures: Call light Within Reach, Bed Alarm Zone 2, Side Rails Side Rails x2, Bed position Low and Locked. Fall Precautions: y Yellow Socks y Yellow Gown y Door Sign Patient Fall Education y Report given to Lisa/RN's.
--- NOTE | 2020-01-01 19:34 | NUR ---
NURSE NOTES: Doctor ordered to cut novolog dose from 3units to 1 unit , because she is NPO. No fluids were ordered for pt.
--- NOTE | 2020-01-01 19:34 | NUR ---
NURSE HAND-OFF REPORT: Important Events on Shift:[] Patient Status: [] Diet: [] Pending Orders: [] Pending Results/Labs:[] Pending MD notification:[] Latest Vital Signs: Temperature 98.1 , Pulse 80 , B/P 129 /75 , Respiratory Rate 22 , O2 SAT 89 , Bi-pap, O2 Flow Rate 10.0 . Vital Sign Comment: [] EKG Rhythm: Sinus Rhythm Rhythm change?: N MD Notified?: - MD Response: Latest Shaw Fall Score: 50 Fall Risk: High Risk Safety Measures: Call light Within Reach, Bed Alarm Zone 2, Side Rails Side Rails x2, Bed position Low and Locked. Fall Precautions: Yellow Socks Yellow Gown Door Sign Patient Fall Education Report given to [].
--- NOTE | 2020-01-01 20:17 | NUR ---
NURSE NOTES: Received report from Gilles Arguello, pt. in bed awake, Appears to be alert name, no signs or symptoms of acute cardiac or respiratory distress noted, bed alarm on, side rails up x's 3 and safety brakes engaged, call light within easy reach, pt. appears to be tolerating current BIPAP settings 15/5 fio2 at 30%- sating at 93%, pt. is NPO per endorsement, pt. has Kelsey intact an draining to gravity, LFA 20G and RFA 20G- TKO- IV intact and patent, all needs attended to, will continue to monitor pt. and with plan of care. Addendum: 01/01/20 at 2035 by SYMONE REYES RN RN correction to BIPAP setting pt is on 20/5 FIO2 @40%.
--- NOTE | 2020-01-01 23:30 | NUR ---
NURSE NOTES: bed bath given- oral care provided, repositioned and turned pt.- pt. appears to be tolerating current BIPAP settings- no distress noted- sating at 92%, all needs attended to- will continue to monitor pt. and with plan of care.
[2020-01-02] VITALS: BP 122/67
[2020-01-02 04:00] VITALS: BP 149/60
[2020-01-02] MEDS: NovoLOG Insulin Flexpen SUBQ SCH ×4 (05:16→21:00)
[2020-01-02] MEDS: HydrALAZINE 25mg tab ORAL SCH ×3 (05:18→22:00)
--- NOTE | 2020-01-02 07:21 | NUR ---
NURSE HAND-OFF REPORT: Important Events on Shift: FEVER X 1 Patient Status: STABLE Diet: NPO Pending Orders: STAT ST EVAL Pending Results/Labs: N/A Pending MD notification: N/A Latest Vital Signs: Temperature 98.9 , Pulse 82 , B/P 149 /60 , Respiratory Rate 24 , O2 SAT 95 , Bi-pap, O2 Flow Rate 10.0 . Vital Sign Comment: STABLE EKG Rhythm: Sinus Rhythm Rhythm change?: N MD Notified?: - MD Response: Latest Shaw Fall Score: 50 Fall Risk: High Risk Safety Measures: Call light Within Reach, Bed Alarm Zone 2, Side Rails Side Rails x3, Bed position Low and Locked. Fall Precautions: Yellow Socks Yellow Gown Door Sign Patient Fall Education Report given to ALEX GARCIA.
[2020-01-02 07:26] LABS: HEMATOCRIT 34.3 % (37.0-47.0); HEMOGLOBIN 10.5 G/DL (12.0-16.0); MEAN CORPUSCULAR VOLUME 84 FL (80-99); PLATELET COUNT 138 K/UL (150-450); RED BLOOD COUNT 4.08 M/UL (4.20-5.40); RED CELL DISTRIBUTION WIDTH 16.2 % (11.6-14.8); WHITE BLOOD COUNT 6.9 K/UL (4.8-10.8)
--- NOTE | 2020-01-02 08:00 | NUR ---
NURSE NOTES: Pt asleep/obtunded in bed, breathing on continuous bipap. HEPA filter installed in room venting the air to the outside. Vital signs stable with SR at 88 with frequent PVCs on monitor. IV access RFA flushed with 10 ml and locked. LFA access with NS running at TKO. Kelsey cath in place, patent, draining clear jayson urine into collection bag at foot of bed. Bilateral foot drop, ankles and heels padded with Optifoam. Bed left in low position, exit alarm set, side rails up x 3 and call light left near pt's hand.
[2020-01-02 08:11] LABS: ALANINE AMINOTRANSFERASE 18 U/L (12-78); ALBUMIN 2.6 G/DL (3.4-5.0); ALBUMIN/GLOBULIN RATIO 0.6 (1.0-2.7); ALKALINE PHOSPHATASE 39 U/L (46-116); ANION GAP 5 mmol/L (5-15); ASPARTATE AMINO TRANSFERASE 28 U/L (15-37); BILIRUBIN,TOTAL 0.6 MG/DL (0.2-1.0); BLOOD UREA NITROGEN 46 mg/dL (7-18); CALCIUM 9.6 MG/DL (8.5-10.1); CARBON DIOXIDE 37 MMOL/L (21-32); CHLORIDE 101 MMOL/L (98-107); CREATININE 1.1 MG/DL (0.55-1.30); PHOSPHORUS 3.2 MG/DL (2.5-4.9); POTASSIUM 3.8 MMOL/L (3.5-5.1); SODIUM 143 MMOL/L (136-145)
[2020-01-02 08:29] VITALS: BP 134/66
--- NOTE | 2020-01-02 08:55 | Diagnostic Imaging Report ---
EXAM: XR Chest, 1 View CLINICAL HISTORY: DYSPNEA TECHNIQUE: Frontal view of the chest. COMPARISON: January 01, 2020. FINDINGS: Enlarged cardiac silhouette and prominent mediastinum, similar to prior exam. Low lung volumes. Again noted is vascular congestion/developing failure and bilateral patchy infiltrates. Small bilateral pleural effusions. Senescent changes. IMPRESSION: Vascular congestion/developing failure and bilateral patchy infiltrates, slightly worse since prior exam. Small bilateral pleural effusions. Prominent mediastinum likely due to tortuous/ectatic thoracic aorta.
--- NOTE | 2020-01-02 09:15 | NUR ---
NURSE NOTES: Pt obtunded, requiring continual shaking to awaken enough to swallow crushed meds with applesauce. Pt pocketing and taking a long time to swallow.
[2020-01-02] MEDS: Heparin 5000 units/ml inj SUBQ SCH ×2 (09:19→21:00)
[2020-01-02] MEDS: dilTIAZem HCl 30mg tab ORAL SCH ×2 (09:19→21:00)
[2020-01-02] MEDS: cefTRIAXone 1 GM in D5W 55 ML IVPB SCH (09:19)
[2020-01-02] MEDS: Digoxin 0.125mg tab ORAL SCH (09:19)
--- NOTE | 2020-01-02 10:35 | Pulmonology Progress Note ---
Subjective Allergies: Coded Allergies: DOXYCYCLINE (Verified Allergy, Unknown, 04/04/19) RIFAMPIN (Verified Allergy, Unknown, 04/04/19) Objective Last 24 Hour Vital Signs Date Time Temp Pulse Resp B/P (MAP) Pulse Ox O2 Delivery O2 Flow Rate FiO2 01/02/20 09:19 94 134/66 01/02/20 09:19 94 01/02/20 08:45 40 01/02/20 08:40 Bi-pap 01/02/20 08:39 94 01/02/20 08:29 98.2 95 20 134/66 (88) 92 01/02/20 07:22 79 20 94 40 01/02/20 05:50 98.9 01/02/20 05:18 149/60 01/02/20 04:00 100.4 82 24 149/60 (89) 95 01/02/20 04:00 Bi-pap 01/02/20 04:00 40 01/02/20 04:00 93 01/02/20 03:17 85 20 96 40 01/02/20 00:00 97.9 83 22 122/67 (85) 94 01/02/20 00:00 Bi-pap 01/02/20 00:00 40 01/01/20 23:40 85 01/01/20 23:04 82 20 93 40 01/01/20 22:22 141/56 01/01/20 20:06 93 135/76 01/01/20 20:00 Bi-pap 01/01/20 20:00 40 01/01/20 20:00 98.1 93 24 135/76 (95) 93 01/01/20 19:57 88 23 93 40 01/01/20 19:32 92 01/01/20 16:44 129/75 01/01/20 16:00 80 01/01/20 16:00 98.1 74 22 129/75 (93) 89 01/01/20 16:00 Bi-pap 01/01/20 16:00 30 01/01/20 15:29 91 20 90 40 01/01/20 12:00 71 01/01/20 12:00 30 01/01/20 12:00 97.3 80 20 112/73 (86) 92 01/01/20 12:00 Bi-pap 01/01/20 11:30 72 20 91 40 Intake and Output 01/01/20 01/02/20 19:00 07:00 Output Total 600 ml 350 ml Balance -600 ml -350 ml Output Urine Total 600 ml 350 ml # Bowel Movements 3 4 General Appearance: WD/WN HEENT: normocephalic, atraumatic Respiratory: chest wall non-tender, lungs clear Breasts: no masses Cardiovascular: normal peripheral pulses, normal rate Abdomen: normal bowel sounds, soft, non tender Genitourinary: normal external genitalia Extremities: no clubbing Skin: no lesions Neurologic: machine splitter II-XII grossly normal Lymphatic: no neck adenopathy Microbiology Date/Time Source Procedure Growth Status 01/01/20 04:00 Rectum Received 01/01/20 00:30 Blood Blood Culture - Preliminary NO GROWTH AFTER 24 HOURS Resulted 01/01/20 00:20 Nasopharynx SARS-CoV-2 RdRp Gene Assay - Final Complete 01/01/20 00:15 Blood Blood Culture - Preliminary NO GROWTH AFTER 24 HOURS Resulted Laboratory Tests 01/01/20 11:37: POC Whole Blood Glucose 167H 01/01/20 16:53: POC Whole Blood Glucose [Pending] 01/01/20 20:05: POC Whole Blood Glucose 146H 01/02/20 05:13: POC Whole Blood Glucose [Pending] 01/02/20 07:10: White Blood Count 6.9, Red Blood Count 4.08L, Hemoglobin 10.5L, Hematocrit 34.3L , Mean Corpuscular Volume 84, Mean Corpuscular Hemoglobin 25.8L, Mean Corpuscular Hemoglobin Concent 30.7L, Red Cell Distribution Width 16.2H, Platelet Count 138L, Mean Platelet Volume 6.5, Neutrophils (%) (Auto) , Lymphocytes (%) (Auto) , Monocytes (%) (Auto) , Eosinophils (%) (Auto) , Basophils (%) (Auto) , Differential Total Cells Counted 100, Neutrophils % (Manual) 90H, Lymphocytes % (Manual) 5L, Monocytes % (Manual) 5, Eosinophils % (Manual) 0, Basophils % (Manual) 0, Band Neutrophils 0, Platelet Estimate DecreasedL, Platelet Morphology Normal, Hypochromasia 1+, Anisocytosis 1+, Sodium Level 143, Potassium Level 3.8, Chloride Level 101, Carbon Dioxide Level 37H, Anion Gap 5, Blood Urea Nitrogen 46H, Creatinine 1.1, Estimat Glomerular Filtration Rate 47.3, Glucose Level 149H, Calcium Level 9.6, Phosphorus Level 3.2, Total Bilirubin 0.6, Aspartate Amino Transf (AST/SGOT) 28, Alanine Aminotransferase (ALT/SGPT) 18, Alkaline Phosphatase 39L, Pro-B-Type Natriuretic Peptide 3556H, Total Protein 7.0, Albumin 2.6L, Globulin 4.4, Albumin/Globulin Ratio 0.6L Current Medications Medications (Trade) Dose Ordered Sig/Brett Route PRN Reason Start Time Stop Time Status Last Admin Dose Admin Acetaminophen (Tylenol) 650 mg Q4H PRN ORAL FEVER 01/01/20 07:00 01/31/20 06:59 01/02/20 05:20 Albuterol/ Ipratropium (Albuterol/ Ipratropium) 3 ml Q4H PRN HHN Shortness of Breath 01/01/20 07:00 01/06/20 06:59 Baclofen (Lioresal) 10 mg THREE TIMES A DAY ORAL 01/01/20 09:00 01/31/20 08:59 01/01/20 18:19 Ceftriaxone Sodium 1 gm/ Dextrose 55 ml @ 110 mls/hr Q24H IVPB 01/01/20 09:00 01/08/20 08:59 01/02/20 09:19 Dexamethasone (Decadron) 4 mg DAILY ORAL 01/01/20 09:00 01/31/20 08:59 01/02/20 09:19 Dextrose (Dextrose 50%) 25 ml Q30M PRN IV Hypoglycemia 01/01/20 08:45 03/31/20 08:44 Dextrose (Dextrose 50%) 50 ml Q30M PRN IV Hypoglycemia 01/01/20 08:45 03/31/20 08:44 Digoxin (Lanoxin) 0.125 mg DAILY ORAL 01/01/20 09:00 03/31/20 08:59 01/02/20 09:19 Diltiazem HCl (Cardizem Tab) 60 mg EVERY 12 HOURS ORAL 01/01/20 09:00 01/31/20 08:59 01/02/20 09:19 Furosemide (Lasix) 20 mg DAILY IV 01/01/20 09:00 01/31/20 08:59 01/02/20 09:20 Heparin Sodium (Porcine) (Heparin 5000 units/ml) 5,000 units EVERY 12 HOURS SUBQ 01/01/20 09:00 02/15/20 08:59 01/02/20 09:19 Hydralazine HCl (Apresoline) 25 mg EVERY 8 HOURS ORAL 01/01/20 14:00 03/31/20 13:59 01/02/20 05:18 Insulin Aspart (NovoLOG) BEFORE MEALS AND HS SUBQ 01/01/20 11:30 03/31/20 11:29 01/01/20 13:38 Levothyroxine Sodium (Synthroid) 150 mcg DAILY@0630 ORAL 01/01/20 09:00 01/31/20 08:59 01/01/20 12:33 Ondansetron HCl (Zofran) 4 mg Q6H PRN IVP Nausea & Vomiting 01/01/20 07:00 01/31/20 06:59 Polyethylene Glycol (Miralax) 17 gm DAILYPRN PRN ORAL Constipation 01/01/20 07:00 01/31/20 06:59 Promethazine HCl/ Codeine (Phenergan with Codeine) 5 ml Q6H PRN ORAL cough 01/01/20 07:00 01/31/20 06:59 Assessment/Plan Problems: (1) 2019 novel coronavirus detected (2) Acute on chronic systolic (congestive) heart failure (3) Atrial fibrillation (4) Chronic respiratory failure (5) Hypothyroidism (6) History of hypertension (7) Diabetes mellitus Assessment/Plan [facility]ott culture ID evaluation appreciated echo reviewed, EF 60% , PA pressure 96 diuretics f/u cxr today slightly worse abx as per ID check electrolytes sliding scale swallow study when more awake, npo for now Ann-Marie Graves MD Jan 02, 2020 10:35
[2020-01-02 12:13] VITALS: BP 115/57
--- NOTE | 2020-01-02 15:40 | NUR ---
NURSE NOTES:WOUND CARE NOTES:Pt presented on admission with Non-Blanchable erythema without induration Sacrococcygeal, R and L gluteal cheeks. Non-Blanching erythema noted to R and Ischial tuberosities. Both heels are boggy with non-Blanching erythema. Tx.Plan: Apply Moisture Barrier paste to Buttocks and bilat Ischium with each incontinence care. Apply Moisture Barrier Paste to sacrum. Cover with Optifoam drsg. Change every 3 days and prn. Apply Cavilon Skin Barrier to both heels and Malleoli. Cover each site with Optifoam drsgs. Change every 7 days and prn. Reposition at least every 2hours or as tolerated. Off-load heels with Pillows.
[2020-01-02 16:00] VITALS: BP 115/69
--- NOTE | 2020-01-02 16:37 | Internal Med Progress Note ---
Subjective Date of Service: Jan 02, 2020 Physician Name Harris Greenfield Attending Physician Fernando Peguero MD Current Medications Medications (Trade) Dose Ordered Sig/Brett Route PRN Reason Start Time Stop Time Status Last Admin Dose Admin Acetaminophen (Tylenol) 650 mg Q4H PRN ORAL FEVER 01/01/20 07:00 01/31/20 06:59 01/02/20 05:20 Albuterol/ Ipratropium (Albuterol/ Ipratropium) 3 ml Q4H PRN HHN Shortness of Breath 01/01/20 07:00 01/06/20 06:59 Baclofen (Lioresal) 10 mg THREE TIMES A DAY ORAL 01/01/20 09:00 01/31/20 08:59 01/02/20 13:08 Ceftriaxone Sodium 1 gm/ Dextrose 55 ml @ 110 mls/hr Q24H IVPB 01/01/20 09:00 01/08/20 08:59 01/02/20 09:19 Dexamethasone (Decadron) 4 mg DAILY ORAL 01/01/20 09:00 01/31/20 08:59 01/02/20 09:19 Dextrose (Dextrose 50%) 25 ml Q30M PRN IV Hypoglycemia 01/01/20 08:45 03/31/20 08:44 Dextrose (Dextrose 50%) 50 ml Q30M PRN IV Hypoglycemia 01/01/20 08:45 03/31/20 08:44 Digoxin (Lanoxin) 0.125 mg DAILY ORAL 01/01/20 09:00 03/31/20 08:59 01/02/20 09:19 Diltiazem HCl (Cardizem Tab) 60 mg EVERY 12 HOURS ORAL 01/01/20 09:00 01/31/20 08:59 01/02/20 09:19 Furosemide (Lasix) 20 mg DAILY IV 01/01/20 09:00 01/31/20 08:59 01/02/20 09:20 Heparin Sodium (Porcine) (Heparin 5000 units/ml) 5,000 units EVERY 12 HOURS SUBQ 01/01/20 09:00 02/15/20 08:59 01/02/20 09:19 Hydralazine HCl (Apresoline) 25 mg EVERY 8 HOURS ORAL 01/01/20 14:00 03/31/20 13:59 01/02/20 13:08 Insulin Aspart (NovoLOG) BEFORE MEALS AND HS SUBQ 01/01/20 11:30 03/31/20 11:29 01/01/20 13:38 Levothyroxine Sodium (Synthroid) 150 mcg DAILY@0630 ORAL 01/01/20 09:00 01/31/20 08:59 01/01/20 12:33 Ondansetron HCl (Zofran) 4 mg Q6H PRN IVP Nausea & Vomiting 01/01/20 07:00 01/31/20 06:59 Polyethylene Glycol (Miralax) 17 gm DAILYPRN PRN ORAL Constipation 01/01/20 07:00 01/31/20 06:59 Promethazine HCl/ Codeine (Phenergan with Codeine) 5 ml Q6H PRN ORAL cough 01/01/20 07:00 01/31/20 06:59 Allergies: Coded Allergies: DOXYCYCLINE (Verified Allergy, Unknown, 04/04/19) RIFAMPIN (Verified Allergy, Unknown, 04/04/19) ROS Limited/Unobtainable: Yes Subjective 84 YO F admitted with hypoxia. Now COVID 19 pneumonia. Cover for Int med-DR Peguero Objective Last Vital Signs Date Time Temp Pulse Resp B/P (MAP) Pulse Ox O2 Delivery O2 Flow Rate FiO2 01/02/20 15:17 92 22 94 40 01/02/20 13:08 115/57 01/02/20 12:13 98.7 01/02/20 11:41 Bi-pap 01/01/20 04:25 10.0 Laboratory Tests Test 01/01/20 16:53 01/01/20 20:05 01/02/20 05:13 01/02/20 07:10 POC Whole Blood Glucose Pending 146 MG/DL (74-106) H Pending White Blood Count 6.9 K/UL (4.8-10.8) Red Blood Count 4.08 M/UL (4.20-5.40) L Hemoglobin 10.5 G/DL (12.0-16.0) L Hematocrit 34.3 % (37.0-47.0) L Mean Corpuscular Volume 84 FL (80-99) Mean Corpuscular Hemoglobin 25.8 PG (27.0-31.0) L Mean Corpuscular Hemoglobin Concent 30.7 G/DL (32.0-36.0) L Red Cell Distribution Width 16.2 % (11.6-14.8) H Platelet Count 138 K/UL (150-450) L Mean Platelet Volume 6.5 FL (6.5-10.1) Neutrophils (%) (Auto) % (45.0-75.0) Lymphocytes (%) (Auto) % (20.0-45.0) Monocytes (%) (Auto) % (1.0-10.0) Eosinophils (%) (Auto) % (0.0-3.0) Basophils (%) (Auto) % (0.0-2.0) Differential Total Cells Counted 100 Neutrophils % (Manual) 90 % (45-75) H Lymphocytes % (Manual) 5 % (20-45) L Monocytes % (Manual) 5 % (1-10) Eosinophils % (Manual) 0 % (0-3) Basophils % (Manual) 0 % (0-2) Band Neutrophils 0 % (0-8) Platelet Estimate Decreased L Platelet Morphology Normal Hypochromasia 1+ Anisocytosis 1+ Sodium Level 143 MMOL/L (136-145) Potassium Level 3.8 MMOL/L (3.5-5.1) Chloride Level 101 MMOL/L (98-107) Carbon Dioxide Level 37 MMOL/L (21-32) H Anion Gap 5 mmol/L (5-15) Blood Urea Nitrogen 46 mg/dL (7-18) H Creatinine 1.1 MG/DL (0.55-1.30) Estimat Glomerular Filtration Rate 47.3 mL/min (>60) Glucose Level 149 MG/DL (74-106) H Calcium Level 9.6 MG/DL (8.5-10.1) Phosphorus Level 3.2 MG/DL (2.5-4.9) Total Bilirubin 0.6 MG/DL (0.2-1.0) Aspartate Amino Transf (AST/SGOT) 28 U/L (15-37) Alanine Aminotransferase (ALT/SGPT) 18 U/L (12-78) Alkaline Phosphatase 39 U/L (46-116) L Pro-B-Type Natriuretic Peptide 3556 pg/mL (0-125) H Total Protein 7.0 G/DL (6.4-8.2) Albumin 2.6 G/DL (3.4-5.0) L Globulin 4.4 g/dL Albumin/Globulin Ratio 0.6 (1.0-2.7) L Microbiology Date/Time Source Procedure Growth Status 01/01/20 04:00 Rectum Received 01/01/20 00:30 Blood Blood Culture - Preliminary NO GROWTH AFTER 24 HOURS Resulted 01/01/20 00:20 Nasopharynx SARS-CoV-2 RdRp Gene Assay - Final Complete 01/01/20 00:15 Blood Blood Culture - Preliminary NO GROWTH AFTER 24 HOURS Resulted Intake and Output 01/01/20 01/02/20 19:00 07:00 Output Total 600 ml 350 ml Balance -600 ml -350 ml Output Urine Total 600 ml 350 ml # Bowel Movements 3 4 Objective PHYSICAL EXAMINATION: GENERAL: The patient is a well-developed and well-nourished female, in moderate respiratory distress. HEENT: Eyes, pupils equal and responsive to light and accommodation. Extraocular movements are intact. NECK: Supple without lymphadenopathy. CHEST: BIPAP; Decreased breath sounds at bilateral bases with crackles. Otherwise, without wheezes. CARDIOVASCULAR: Regular rhythm and rate. S1, S2 normal without murmurs, rubs, or gallops. ABDOMEN: Soft, nontender, and nondistended. Positive bowel sounds. No evidence of hepatosplenomegaly. Currently, no rebound or guarding noted. EXTREMITIES: Negative for clubbing, cyanosis, or edema. RECTAL/GENITAL: Not performed. NEUROLOGIC: Cranial nerves II through XII are grossly intact without focal deficits. Assessment/Plan Assessment/Plan ASSESSMENT: This is an 84-year-old female with: 1. COVID-19 positive. 2. Bilateral pneumonia. 3. Hypertension. 4. Atrial fibrillation. 5. Chronic obstructive pulmonary disease. 6. Coronary artery disease. 7. Congestive heart failure. 8. Diabetes type 2. 9. Hypothyroidism. 10. Hypercholesterolemia. 11. Rheumatoid arthritis. 12. Gastroesophageal reflux disease. 13. Respiratory failure TREATMENT: 1. COVID-19 positive/pneumonia. A Pulmonary consultation has been obtained with Dr. Ann-Marie Graves. The patient has been started empirically on intravenous ceftriaxone. Follow recommendations of Pulmonary. 2. Hypertension. Continue hydralazine as above. 3. Atrial fibrillation. Continue digoxin as above. 4. Chronic obstructive pulmonary disease. As above, a Pulmonary consultation has been obtained with Dr. Ann-Marie Graves. The patient is currently on albuterol nebulized q.4h. p..r.n. 5. Coronary disease/congestive heart failure. An echocardiogram is pending. A Cardiology consultation has been obtained with Dr. Gaming. 6. Diabetes type 2. NovoLog sliding scale has been instituted. 7. Hypothyroidism. Continue Synthroid as above. 8. Hypercholesterolemia. Continue atorvastatin as above. 9. Rheumatoid arthritis. 10. Gastroesophageal reflux disease. Continue Protonix as above. 11. Continue BIPAP Harris Greenfield MD Jan 02, 2020 16:37
--- NOTE | 2020-01-02 19:35 | NUR ---
NURSE NOTES: Pt received from ALEX Olvera. Pt is resting in bed and does not show any sign of pain. Pt is AxO x1 and obtunded. Pt is on cardiac monitoring SR and asymptomatic. Pt is on continuous BiPAP 20/5 40%FiO2 and sating 92%. Pt has difficulty swallowing and is not taking PO meds. Pt has sacral redness and is turned with heels floated q2h. Pt has IV RFA 22G SL and LFA 22G TKO with NS 5ml/hr. Bed locked in lowest position with call light within reach. Will continue to monitor.
[2020-01-02 20:00] VITALS: BP 133/57
--- NOTE | 2020-01-02 20:30 | NUR ---
NURSE NOTES: Notified Dr Peguero about pt inability to take PO medications. Awaiting reply. Will continue to monitor pt.
--- NOTE | 2020-01-02 22:21 | NUR ---
NURSE NOTES: RT was unable to obtain sputum culture. Will endorse to day shift.
[2020-01-03] VITALS (7 sets, daily range): BP systolic 113–150; BP diastolic 49–79
[2020-01-03] MEDS ORDERED: dilTIAZem HCl 25mg/5ml Inj IVP PRN ×2 (03:00→07:00)
--- NOTE | 2020-01-03 03:21 | NUR ---
NURSE NOTES: PO medications Hydralazine and cardizem were discontinued. [facility] recommends cardizem 40mg IVP prn q12hr and hydralazine 10mg IVP prn q8hr. Hydralazine is back ordered and cardizem order is started. Will continue to monitor.
[2020-01-03 05:16] LABS: HEMATOCRIT 34.6 % (37.0-47.0); HEMOGLOBIN 10.6 G/DL (12.0-16.0); MEAN CORPUSCULAR VOLUME 84 FL (80-99); PLATELET COUNT 145 K/UL (150-450); RED BLOOD COUNT 4.11 M/UL (4.20-5.40); RED CELL DISTRIBUTION WIDTH 16.3 % (11.6-14.8); WHITE BLOOD COUNT 6.4 K/UL (4.8-10.8)
[2020-01-03 06:00] LABS: ALBUMIN 2.5 G/DL (3.4-5.0); ALBUMIN/GLOBULIN RATIO 0.5 (1.0-2.7); BILIRUBIN,TOTAL 0.6 MG/DL (0.2-1.0); CALCIUM 9.8 MG/DL (8.5-10.1); CREATININE 1.1 MG/DL (0.55-1.30); PHOSPHORUS 2.8 MG/DL (2.5-4.9); POTASSIUM 3.4 MMOL/L (3.5-5.1)
[2020-01-03] MEDS: NovoLOG Insulin Flexpen SUBQ SCH ×4 (06:30→20:33)
--- NOTE | 2020-01-03 07:00 | NUR ---
NURSE NOTES: received patient report from deonna gonzalez. patient is on bed asleep. not in acute distress.afebrile. no acute events last night. on bipap, continously at prescribed rate. SR-ST on the monitor. bed is low and locked for safety. will follow plan of care.
--- NOTE | 2020-01-03 07:22 | NUR ---
NURSE HAND-OFF REPORT: Important Events on Shift: Pt FiO2 increased to 100%. Added IVP cardizem d/t pt inability to swallow. Patient Status: Stable Diet: NPO per Swallow Eval Pending Orders: Hydralazine IVP Pending Results/Labs:AM Labs Latest Vital Signs: Temperature 97.9 , Pulse 91 , B/P 127 /61 , Respiratory Rate 23 , O2 SAT 92 , Bi-pap, O2 Flow Rate 10.0 . Vital Sign Comment: VSS EKG Rhythm: Sinus Rhythm Rhythm change?: N MD Notified?: - MD Response: Latest Shaw Fall Score: 50 Fall Risk: High Risk Safety Measures: Call light Within Reach, Bed Alarm Zone 2, Side Rails Side Rails x3, Bed position Low and Locked. Fall Precautions: Yellow Socks Yellow Gown Door Sign Patient Fall Education Report given to ALEX Cole.
[2020-01-03] MEDS: Digoxin 0.125mg tab ORAL SCH ×2 (08:10→08:59)
[2020-01-03] MEDS: dilTIAZem HCl 60mg tab ORAL SCH ×3 (08:11→20:38)
[2020-01-03] MEDS: Heparin 5000 units/ml inj SUBQ SCH ×2 (08:12→20:38)
[2020-01-03] MEDS: cefTRIAXone 1 GM in D5W 55 ML IVPB SCH (08:13)
[2020-01-03] MEDS ORDERED: Acetaminophen 650 MG SUPP RECTAL PRN (09:30)
[2020-01-03] MEDS ORDERED: Sodium Chloride for KCL Premix X 4hrs IV SCH (10:00)
--- NOTE | 2020-01-03 10:38 | Pulmonolgy Critical Care Note ---
Critical Care - Asmt/Plan Problems: (1) 2019 novel coronavirus detected (2) Acute on chronic systolic (congestive) heart failure (3) Atrial fibrillation (4) Diabetes mellitus (5) CHF (congestive heart failure) (6) Hypothyroidism (7) Chronic respiratory failure (8) History of hypertension Respiratory: monitor respiratory rate, adjust FIO2, CXR Cardiac: continue to monitor HR/BP Renal: F/U I&O, keep IV fluid, check electrolytes Infectious Disease: check cultures Gastrointestinal: continue feedings/current rate Endocrine: monitor blood sugar Hematologic: monitor H/H Neurologic: PRN Ativan, PRN Morphine Affect: PRN ativan Prophylaxis: Protonix, Heparin Disposition: keep in ICU 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: audit reviewer, cardio Discussed with: nurses, consultants, clinical case managerfood and beverage manager - Objective Last 24 Hour Vital Signs Date Time Temp Pulse Resp B/P (MAP) Pulse Ox O2 Delivery O2 Flow Rate FiO2 01/03/20 08:00 Bi-pap 01/03/20 08:00 102.0 24 150/79 (102) 98 01/03/20 07:48 103 01/03/20 07:42 100 01/03/20 04:00 Bi-pap 01/03/20 04:00 97.9 91 23 127/61 (83) 92 01/03/20 04:00 40 01/03/20 04:00 95 01/03/20 03:52 90 20 94 40 01/03/20 00:00 98.6 78 23 143/68 (93) 100 01/03/20 00:00 40 01/03/20 00:00 92 01/03/20 00:00 Bi-pap 01/02/20 23:01 88 21 93 40 01/02/20 20:00 40 01/02/20 20:00 98.2 91 20 133/57 (82) 92 01/02/20 20:00 Bi-pap 01/02/20 20:00 89 01/02/20 19:37 86 20 91 40 01/02/20 16:00 98.4 86 20 115/69 (84) 92 01/02/20 16:00 Bi-pap 01/02/20 16:00 88 01/02/20 16:00 40 01/02/20 15:17 92 22 94 40 01/02/20 13:08 115/57 01/02/20 12:29 92 01/02/20 12:15 40 01/02/20 12:13 98.7 74 20 115/57 (76) 92 01/02/20 11:41 Bi-pap 01/02/20 11:16 75 20 92 40 Status: awake Condition: critical HEENT: atraumatic, normocephalic Neck: full ROM Heart: HR/BP stable Abdomen: soft, active bowel sounds Extremities: no C/C/E, edema Micro: Microbiology Date/Time Source Procedure Growth Status 01/01/20 04:00 Rectum - Final NO CARBAPENEM-RESISTANT ENTEROBACTERI... Complete 01/01/20 04:00 Rectum VRE Culture - Final Enterococcus Faecium - Vre Complete 01/01/20 04:00 Nasal Nares MRSA Culture - Final NO METHICILLIN RESISTANT STAPH AUREUS... Complete 01/01/20 00:30 Blood Blood Culture - Preliminary NO GROWTH AFTER 24 HOURS Resulted 01/01/20 00:20 Nasopharynx SARS-CoV-2 RdRp Gene Assay - Final Complete 01/01/20 00:15 Blood Blood Culture - Preliminary NO GROWTH AFTER 24 HOURS Resulted Accucheck: 118 Critical Care - Subjective ROS Limited/Unobtainable: Yes Interval Events: on Bipap, awake, confused FI02: 100 Sputum Amount: None I&O: Intake and Output 01/02/20 01/03/20 19:00 07:00 Intake Total 45 ml Output Total 700 ml 600 ml Balance -700 ml -555 ml IV Total 45 ml Output Urine Total 700 ml 600 ml CXR: pulmonary edema Labs: Laboratory Tests Test 01/03/20 03:47 White Blood Count 6.4 K/UL (4.8-10.8) Red Blood Count 4.11 M/UL (4.20-5.40) L Hemoglobin 10.6 G/DL (12.0-16.0) L Hematocrit 34.6 % (37.0-47.0) L Mean Corpuscular Volume 84 FL (80-99) Mean Corpuscular Hemoglobin 25.7 PG (27.0-31.0) L Mean Corpuscular Hemoglobin Concent 30.5 G/DL (32.0-36.0) L Red Cell Distribution Width 16.3 % (11.6-14.8) H Platelet Count 145 K/UL (150-450) L Mean Platelet Volume 7.6 FL (6.5-10.1) Neutrophils (%) (Auto) % (45.0-75.0) Lymphocytes (%) (Auto) % (20.0-45.0) Monocytes (%) (Auto) % (1.0-10.0) Eosinophils (%) (Auto) % (0.0-3.0) Basophils (%) (Auto) % (0.0-2.0) Differential Total Cells Counted 100 Neutrophils % (Manual) 91 % (45-75) H Lymphocytes % (Manual) 6 % (20-45) L Monocytes % (Manual) 3 % (1-10) Eosinophils % (Manual) 0 % (0-3) Basophils % (Manual) 0 % (0-2) Band Neutrophils 0 % (0-8) Platelet Estimate Decreased L Platelet Morphology Normal Hypochromasia 1+ Anisocytosis 1+ Erythrocyte Sedimentation Rate 96 MM/HR (0-30) H Sodium Level 146 MMOL/L (136-145) H Potassium Level 3.4 MMOL/L (3.5-5.1) L Chloride Level 103 MMOL/L (98-107) Carbon Dioxide Level 38 MMOL/L (21-32) H Anion Gap 5 mmol/L (5-15) Blood Urea Nitrogen 49 mg/dL (7-18) H Creatinine 1.1 MG/DL (0.55-1.30) Estimat Glomerular Filtration Rate 47.3 mL/min (>60) Glucose Level 111 MG/DL (74-106) H Calcium Level 9.8 MG/DL (8.5-10.1) Phosphorus Level 2.8 MG/DL (2.5-4.9) Magnesium Level 2.2 MG/DL (1.8-2.4) Total Bilirubin 0.6 MG/DL (0.2-1.0) Aspartate Amino Transf (AST/SGOT) 29 U/L (15-37) Alanine Aminotransferase (ALT/SGPT) 16 U/L (12-78) Alkaline Phosphatase 35 U/L (46-116) L C-Reactive Protein, Quantitative 49.4 mg/dL (0.00-0.90) H Total Protein 7.1 G/DL (6.4-8.2) Albumin 2.5 G/DL (3.4-5.0) L Globulin 4.6 g/dL Albumin/Globulin Ratio 0.5 (1.0-2.7) L Ann-Marie Graves MD Jan 03, 2020 10:39
--- NOTE | 2020-01-03 12:27 | Consultation ---
History of Present Illness General Date patient seen: Jan 03, 2020 Chief Complaint: Dyspnea/Respdistress Present Illness HPI 84 y/o F with hx of Dm2, COPD, HTN, former smoker, CAD, CHF, RA, GERD, hypothyroidism, Afib, [place] resident ([facility]) presented to ED on 01/01/20 with hypoxia; placed on NRB by EMS. Upon admission, T up to 102. Found to be COVID 19. Of note, recently admitted to [facility] on 12/19/19 for resp faiure. Allergies: Coded Allergies: DOXYCYCLINE (Verified Allergy, Unknown, 04/04/19) RIFAMPIN (Verified Allergy, Unknown, 04/04/19) Medication History Scheduled Acetaminophen (Acetaminophen), 650 MG ORAL Q4H, (Reported) Acetazolamide (Acetazolamide), 250 MG ORAL DAILY, (Reported) Ascorbic Acid* (Ascorbic Acid*), 500 MG ORAL THREE TIMES A DAY, (Reported) Aspirin* (Aspirin*), 81 MG ORAL DAILY, (Reported) Atorvastatin Calcium* (Atorvastatin Calcium*), 80 MG ORAL BEDTIME, (Reported) Azithromycin (Azithromycin), 500 MG ORAL DAILY, (Reported) Baclofen* (Baclofen*), 10 MG ORAL THREE TIMES A DAY, (Reported) Digoxin* (Digoxin*), 125 MCG ORAL DAILY, (Reported) Diltiazem HCl (Diltiazem 12Hr ER), 60 MG ORAL EVERY 12 HOURS, (Reported) Docusate Sodium* (Docusate Sodium*), 100 MG ORAL TWICE A DAY, (Reported) Famotidine* (Pepcid 20mg tablet*), 20 MG ORAL DAILY, (Reported) Ferrous Sulfate (Ferrousul), 3,000 MG PO 3 times a day, (Reported) Hydralazine Hcl* (Hydralazine Hcl*), 25 MG ORAL EVERY 8 HOURS, (Reported) Insulin Glargine (Lantus), 5 SUBQ Q12HR, (Reported) Levothyroxine Sodium (Synthroid), 150 MCG ORAL DAILY, (Reported) Levothyroxine Sodium* (Levothyroxine Sodium*), 200 MCG ORAL DAILY, (Reported) Multivitamin With Minerals (Multivitamins With Minerals*), 1 TAB ORAL DAILY, (Reported) Pantoprazole (Pantoprazole), 40 MG ORAL DAILY, (Reported) Spironolact/Hydrochlorothiazid (Aldactazide 25-25 Tablet), 1 TAB ORAL DAILY, (Reported) Zinc Sulfate (Zinc-220*), 220 MG ORAL DAILY, (Reported) Scheduled PRN Hydrocodone/Acetaminophen 5-325* (Hydrocodone/Acetaminophen 5-325*), 1 TAB ORAL Q6H PRN for For Pain, (Reported) Ipratropium [place] 0.5MG/2.5ML (Ipratropium [place] 0.5MG/2.5ML), 0.5 MG HHN Q6H PRN for Shortness of Breath, (Reported) Polyethylene Glycol 3350* (Polyethylene Glycol 3350*), 17 GM ORAL BEDTIME PRN for Constipation, (Reported) Miscellaneous Medications Budesonide (Budesonide), 0.5 MG IH, (Reported) Chlorhexidine Gluconate (Peridex), 15 ML MM, (Reported) Cholecalciferol (Vitamin D3) (Vitamin D-3), 1,000 UNIT PO, (Reported) Potassium Chloride (Potassium Chloride), 10 MEQ PO, (Reported) Prednisolone* (Prelone*), 20 MG ORAL, (Reported) Prednisone (Prednisone), 30 MG PO, (Reported) Sennosides (Senna), 8.6 MG PO, (Reported) Patient History Healthcare decision maker Resuscitation status Advanced Directive on File Patient History Narrative PMhx: as above Shx: The patient is single and is a resident of [facility]. The patient has a previous history of tobacco use, however, quit many years ago. The patient denies alcohol use. Fhx: non contributory Review of Systems ROS Narrative unable to obtain Physical Exam Physical Exam Narrative General Appearance: normal inspection, non-toxic, obese, Chronically Ill Head: atraumatic ENT: normal ENT inspection, hearing grossly normal, normal voice Neck: supple, no bony tend, limited range of motion Respiratory: normal inspection, no respiratory distress, no retraction, rales Cardiovascular #1: regular rate, rhythm, edema Gastrointestinal: normal inspection, normal bowel sounds, non tender, soft, no guarding, no hernia Genitourinary: no CVA tenderness Musculoskeletal: back normal Neurologic: oriented x3, other - Somnolent with gag reflex present, withdraws to pain Skin: palpation normal Last 24 Hour Vital Signs Date Time Temp Pulse Resp B/P (MAP) Pulse Ox O2 Delivery O2 Flow Rate FiO2 01/03/20 12:00 Bi-pap 01/03/20 12:00 100.0 25 137/56 (83) 100 01/03/20 12:00 100 01/03/20 08:00 Bi-pap 01/03/20 08:00 102.0 24 150/79 (102) 98 01/03/20 07:48 103 01/03/20 07:42 100 01/03/20 04:00 Bi-pap 01/03/20 04:00 97.9 91 23 127/61 (83) 92 01/03/20 04:00 40 01/03/20 04:00 95 01/03/20 03:52 90 20 94 40 01/03/20 00:00 98.6 78 23 143/68 (93) 100 01/03/20 00:00 40 01/03/20 00:00 92 01/03/20 00:00 Bi-pap 01/02/20 23:01 88 21 93 40 01/02/20 20:00 40 01/02/20 20:00 98.2 91 20 133/57 (82) 92 01/02/20 20:00 Bi-pap 01/02/20 20:00 89 01/02/20 19:37 86 20 91 40 01/02/20 16:00 98.4 86 20 115/69 (84) 92 01/02/20 16:00 Bi-pap 01/02/20 16:00 88 01/02/20 16:00 40 01/02/20 15:17 92 22 94 40 01/02/20 13:08 115/57 01/02/20 12:29 92 01/02/20 12:15 40 01/02/20 12:13 98.7 74 20 115/57 (76) 92 Intake and Output 01/02/20 01/03/20 19:00 07:00 Intake Total 45 ml Output Total 700 ml 600 ml Balance -700 ml -555 ml IV Total 45 ml Output Urine Total 700 ml 600 ml Laboratory Tests Test 01/03/20 03:47 01/03/20 11:37 White Blood Count 6.4 K/UL (4.8-10.8) Red Blood Count 4.11 M/UL (4.20-5.40) L Hemoglobin 10.6 G/DL (12.0-16.0) L Hematocrit 34.6 % (37.0-47.0) L Mean Corpuscular Volume 84 FL (80-99) Mean Corpuscular Hemoglobin 25.7 PG (27.0-31.0) L Mean Corpuscular Hemoglobin Concent 30.5 G/DL (32.0-36.0) L Red Cell Distribution Width 16.3 % (11.6-14.8) H Platelet Count 145 K/UL (150-450) L Mean Platelet Volume 7.6 FL (6.5-10.1) Neutrophils (%) (Auto) % (45.0-75.0) Lymphocytes (%) (Auto) % (20.0-45.0) Monocytes (%) (Auto) % (1.0-10.0) Eosinophils (%) (Auto) % (0.0-3.0) Basophils (%) (Auto) % (0.0-2.0) Differential Total Cells Counted 100 Neutrophils % (Manual) 91 % (45-75) H Lymphocytes % (Manual) 6 % (20-45) L Monocytes % (Manual) 3 % (1-10) Eosinophils % (Manual) 0 % (0-3) Basophils % (Manual) 0 % (0-2) Band Neutrophils 0 % (0-8) Platelet Estimate Decreased L Platelet Morphology Normal Hypochromasia 1+ Anisocytosis 1+ Erythrocyte Sedimentation Rate 96 MM/HR (0-30) H Sodium Level 146 MMOL/L (136-145) H Potassium Level 3.4 MMOL/L (3.5-5.1) L Chloride Level 103 MMOL/L (98-107) Carbon Dioxide Level 38 MMOL/L (21-32) H Anion Gap 5 mmol/L (5-15) Blood Urea Nitrogen 49 mg/dL (7-18) H Creatinine 1.1 MG/DL (0.55-1.30) Estimat Glomerular Filtration Rate 47.3 mL/min (>60) Glucose Level 111 MG/DL (74-106) H Calcium Level 9.8 MG/DL (8.5-10.1) Phosphorus Level 2.8 MG/DL (2.5-4.9) Magnesium Level 2.2 MG/DL (1.8-2.4) Total Bilirubin 0.6 MG/DL (0.2-1.0) Aspartate Amino Transf (AST/SGOT) 29 U/L (15-37) Alanine Aminotransferase (ALT/SGPT) 16 U/L (12-78) Alkaline Phosphatase 35 U/L (46-116) L C-Reactive Protein, Quantitative 49.4 mg/dL (0.00-0.90) H Total Protein 7.1 G/DL (6.4-8.2) Albumin 2.5 G/DL (3.4-5.0) L Globulin 4.6 g/dL Albumin/Globulin Ratio 0.5 (1.0-2.7) L POC Whole Blood Glucose Pending Height (Feet): 5 Height (Inches): 2.00 Weight (Pounds): 155 Medications Current Medications Medications (Trade) Dose Ordered Sig/Brett Route PRN Reason Start Time Stop Time Status Last Admin Dose Admin Acetaminophen (Tylenol) 650 mg Q4H PRN ORAL FEVER 01/01/20 07:00 01/31/20 06:59 01/02/20 05:20 Acetaminophen (Tylenol) 650 mg Q4H PRN RECTAL Temp >100.5 01/03/20 09:30 02/02/20 09:29 Albuterol/ Ipratropium (Albuterol/ Ipratropium) 3 ml Q4H PRN HHN Shortness of Breath 01/01/20 07:00 01/06/20 06:59 Baclofen (Lioresal) 10 mg THREE TIMES A DAY ORAL 01/01/20 09:00 01/31/20 08:59 01/02/20 13:08 Ceftriaxone Sodium 1 gm/ Dextrose 55 ml @ 110 mls/hr Q24H IVPB 01/01/20 09:00 01/08/20 08:59 01/03/20 08:13 Dexamethasone (Decadron) 4 mg DAILY ORAL 01/01/20 09:00 01/31/20 08:59 01/02/20 09:19 Dextrose (Dextrose 50%) 25 ml Q30M PRN IV Hypoglycemia 01/01/20 08:45 03/31/20 08:44 Dextrose (Dextrose 50%) 50 ml Q30M PRN IV Hypoglycemia 01/01/20 08:45 03/31/20 08:44 Digoxin (Lanoxin) 0.125 mg DAILY ORAL 01/01/20 09:00 03/31/20 08:59 01/02/20 09:19 Diltiazem HCl (Cardizem Tab) 60 mg EVERY 12 HOURS ORAL 01/03/20 09:00 02/02/20 08:59 Diltiazem HCl (Cardizem) 15 mg Q12H PRN IVP For High Blood Pressure 01/03/20 07:00 02/02/20 06:59 Furosemide (Lasix) 20 mg DAILY IV 01/01/20 09:00 01/31/20 08:59 01/03/20 08:11 Heparin Sodium (Porcine) (Heparin 5000 units/ml) 5,000 units EVERY 12 HOURS SUBQ 01/01/20 09:00 02/15/20 08:59 01/03/20 08:12 Hydralazine HCl (Apresoline) 25 mg EVERY 8 HOURS ORAL 01/03/20 14:00 04/02/20 13:59 Insulin Aspart (NovoLOG) BEFORE MEALS AND HS SUBQ 01/01/20 11:30 03/31/20 11:29 01/01/20 13:38 Levothyroxine Sodium (Synthroid) 150 mcg DAILY@0630 ORAL 01/01/20 09:00 01/31/20 08:59 01/03/20 06:30 Ondansetron HCl (Zofran) 4 mg Q6H PRN IVP Nausea & Vomiting 01/01/20 07:00 01/31/20 06:59 Polyethylene Glycol (Miralax) 17 gm DAILYPRN PRN ORAL Constipation 01/01/20 07:00 01/31/20 06:59 Potassium Chloride 100 ml @ 100 mls/hr Q1HR IVPB 01/03/20 10:00 01/03/20 13:59 01/03/20 10:56 Promethazine HCl/ Codeine (Phenergan with Codeine) 5 ml Q6H PRN ORAL cough 01/01/20 07:00 01/31/20 06:59 Sodium Chloride 400 ml @ 100 mls/hr Q4H IV 01/03/20 10:00 01/03/20 13:59 01/03/20 09:58 Assessment/Plan Assessment/Plan: Abx: Cefepime x1 12/31 Flagyl x1 12/31 Ceftriaxone 12/31- Assessment: Sepsis COVID19 pneumonia Acute hypoxic resp failure sp NRB> Bipap 100% Fio2 -01/01 CXR: Vascular congestion/developing failure and bilateral patchy infiltrates, slightly worse since prior exam. Small bilateral pleural effusions.Prominent mediastinum likely due to tortuous/ectatic thoracic aorta. -12/31 CXR: Centrally predominant interstitial and airspace opacities, pulmonary edema most likely. Cardiomegaly. Fever No leukocytosis Dm2 COPD HTN former smoker CAD CHF RA GERD hypothyroidism Afib [place] resident ([facility]) Plan: -Continue Ceftriaxone #3/5 -Decadron #3/10 -Start Remdesivir per [facility] criteria- patient cannot provide consent; Benefits outweigh risks. -f/u cx -Monitor CBC/CMP, temperatures Thank you for consulting [facility]. Will continue to follow along with you. Discussed neto JOHNSON and pharmacy staff. Adreinne Cook M.D. Jan 03, 2020 12:27
--- NOTE | 2020-01-03 13:36 | Internal Med Progress Note ---
Subjective Date of Service: Jan 03, 2020 Physician Name Harris Greenfield Attending Physician Fernando Peguero MD Current Medications Medications (Trade) Dose Ordered Sig/Brett Route PRN Reason Start Time Stop Time Status Last Admin Dose Admin Acetaminophen (Tylenol) 650 mg Q4H PRN ORAL FEVER 01/01/20 07:00 01/31/20 06:59 01/02/20 05:20 Acetaminophen (Tylenol) 650 mg Q4H PRN RECTAL Temp >100.5 01/03/20 09:30 02/02/20 09:29 01/03/20 12:18 Albuterol/ Ipratropium (Albuterol/ Ipratropium) 3 ml Q4H PRN HHN Shortness of Breath 01/01/20 07:00 01/06/20 06:59 Baclofen (Lioresal) 10 mg THREE TIMES A DAY ORAL 01/01/20 09:00 01/31/20 08:59 01/02/20 13:08 Ceftriaxone Sodium 1 gm/ Dextrose 55 ml @ 110 mls/hr Q24H IVPB 01/01/20 09:00 01/08/20 08:59 01/03/20 08:13 Dexamethasone (Decadron) 4 mg DAILY ORAL 01/01/20 09:00 01/31/20 08:59 01/02/20 09:19 Dextrose (Dextrose 50%) 25 ml Q30M PRN IV Hypoglycemia 01/01/20 08:45 03/31/20 08:44 Dextrose (Dextrose 50%) 50 ml Q30M PRN IV Hypoglycemia 01/01/20 08:45 03/31/20 08:44 Digoxin (Lanoxin) 0.125 mg DAILY ORAL 01/01/20 09:00 03/31/20 08:59 01/02/20 09:19 Diltiazem HCl (Cardizem Tab) 60 mg EVERY 12 HOURS ORAL 01/03/20 09:00 02/02/20 08:59 Diltiazem HCl (Cardizem) 15 mg Q12H PRN IVP For High Blood Pressure 01/03/20 07:00 02/02/20 06:59 Furosemide (Lasix) 20 mg DAILY IV 01/01/20 09:00 01/31/20 08:59 01/03/20 08:11 Heparin Sodium (Porcine) (Heparin 5000 units/ml) 5,000 units EVERY 12 HOURS SUBQ 01/01/20 09:00 02/15/20 08:59 01/03/20 08:12 Hydralazine HCl (Apresoline) 25 mg EVERY 8 HOURS ORAL 01/03/20 14:00 04/02/20 13:59 Insulin Aspart (NovoLOG) BEFORE MEALS AND HS SUBQ 01/01/20 11:30 03/31/20 11:29 01/01/20 13:38 Levothyroxine Sodium (Synthroid) 150 mcg DAILY@0630 ORAL 01/01/20 09:00 01/31/20 08:59 01/03/20 06:30 Non-Formulary Medication (Non-Formulary Med) 1 ea DAILY ORAL 01/03/20 12:30 02/02/20 12:29 UNV Ondansetron HCl (Zofran) 4 mg Q6H PRN IVP Nausea & Vomiting 01/01/20 07:00 01/31/20 06:59 Polyethylene Glycol (Miralax) 17 gm DAILYPRN PRN ORAL Constipation 01/01/20 07:00 01/31/20 06:59 Potassium Chloride 100 ml @ 100 mls/hr Q1HR IVPB 01/03/20 10:00 01/03/20 13:59 01/03/20 12:13 Promethazine HCl/ Codeine (Phenergan with Codeine) 5 ml Q6H PRN ORAL cough 01/01/20 07:00 01/31/20 06:59 Sodium Chloride 400 ml @ 100 mls/hr Q4H IV 01/03/20 10:00 01/03/20 13:59 01/03/20 09:58 Allergies: Coded Allergies: DOXYCYCLINE (Verified Allergy, Unknown, 04/04/19) RIFAMPIN (Verified Allergy, Unknown, 04/04/19) ROS Limited/Unobtainable: Yes Subjective 84 YO F admitted with hypoxia. Now COVID 19 pneumonia. Cover for Int med-DR Peguero. Step down unit Objective Last Vital Signs Date Time Temp Pulse Resp B/P (MAP) Pulse Ox O2 Delivery O2 Flow Rate FiO2 01/03/20 12:00 Bi-pap 01/03/20 12:00 100.0 25 137/56 (83) 100 01/03/20 12:00 100 01/03/20 10:36 90 01/01/20 04:25 10.0 Laboratory Tests Test 01/03/20 03:47 01/03/20 11:37 White Blood Count 6.4 K/UL (4.8-10.8) Red Blood Count 4.11 M/UL (4.20-5.40) L Hemoglobin 10.6 G/DL (12.0-16.0) L Hematocrit 34.6 % (37.0-47.0) L Mean Corpuscular Volume 84 FL (80-99) Mean Corpuscular Hemoglobin 25.7 PG (27.0-31.0) L Mean Corpuscular Hemoglobin Concent 30.5 G/DL (32.0-36.0) L Red Cell Distribution Width 16.3 % (11.6-14.8) H Platelet Count 145 K/UL (150-450) L Mean Platelet Volume 7.6 FL (6.5-10.1) Neutrophils (%) (Auto) % (45.0-75.0) Lymphocytes (%) (Auto) % (20.0-45.0) Monocytes (%) (Auto) % (1.0-10.0) Eosinophils (%) (Auto) % (0.0-3.0) Basophils (%) (Auto) % (0.0-2.0) Differential Total Cells Counted 100 Neutrophils % (Manual) 91 % (45-75) H Lymphocytes % (Manual) 6 % (20-45) L Monocytes % (Manual) 3 % (1-10) Eosinophils % (Manual) 0 % (0-3) Basophils % (Manual) 0 % (0-2) Band Neutrophils 0 % (0-8) Platelet Estimate Decreased L Platelet Morphology Normal Hypochromasia 1+ Anisocytosis 1+ Erythrocyte Sedimentation Rate 96 MM/HR (0-30) H Sodium Level 146 MMOL/L (136-145) H Potassium Level 3.4 MMOL/L (3.5-5.1) L Chloride Level 103 MMOL/L (98-107) Carbon Dioxide Level 38 MMOL/L (21-32) H Anion Gap 5 mmol/L (5-15) Blood Urea Nitrogen 49 mg/dL (7-18) H Creatinine 1.1 MG/DL (0.55-1.30) Estimat Glomerular Filtration Rate 47.3 mL/min (>60) Glucose Level 111 MG/DL (74-106) H Calcium Level 9.8 MG/DL (8.5-10.1) Phosphorus Level 2.8 MG/DL (2.5-4.9) Magnesium Level 2.2 MG/DL (1.8-2.4) Total Bilirubin 0.6 MG/DL (0.2-1.0) Aspartate Amino Transf (AST/SGOT) 29 U/L (15-37) Alanine Aminotransferase (ALT/SGPT) 16 U/L (12-78) Alkaline Phosphatase 35 U/L (46-116) L C-Reactive Protein, Quantitative 49.4 mg/dL (0.00-0.90) H Total Protein 7.1 G/DL (6.4-8.2) Albumin 2.5 G/DL (3.4-5.0) L Globulin 4.6 g/dL Albumin/Globulin Ratio 0.5 (1.0-2.7) L POC Whole Blood Glucose Pending Microbiology Date/Time Source Procedure Growth Status 01/01/20 04:00 Rectum - Final NO CARBAPENEM-RESISTANT ENTEROBACTERI... Complete 01/01/20 04:00 Rectum VRE Culture - Final Enterococcus Faecium - Vre Complete 01/01/20 04:00 Nasal Nares MRSA Culture - Final NO METHICILLIN RESISTANT STAPH AUREUS... Complete 01/01/20 00:30 Blood Blood Culture - Preliminary NO GROWTH AFTER 24 HOURS Resulted 01/01/20 00:20 Nasopharynx SARS-CoV-2 RdRp Gene Assay - Final Complete 01/01/20 00:15 Blood Blood Culture - Preliminary NO GROWTH AFTER 24 HOURS Resulted Intake and Output 01/02/20 01/03/20 19:00 07:00 Intake Total 45 ml Output Total 700 ml 600 ml Balance -700 ml -555 ml IV Total 45 ml Output Urine Total 700 ml 600 ml Objective PHYSICAL EXAMINATION: GENERAL: The patient is a well-developed and well-nourished female, in moderate respiratory distress. HEENT: Eyes, pupils equal and responsive to light and accommodation. Extraocular movements are intact. NECK: Supple without lymphadenopathy. CHEST: BIPAP; Decreased breath sounds at bilateral bases with crackles. Otherwise, without wheezes. CARDIOVASCULAR: Regular rhythm and rate. S1, S2 normal without murmurs, rubs, or gallops. ABDOMEN: Soft, nontender, and nondistended. Positive bowel sounds. No evidence of hepatosplenomegaly. Currently, no rebound or guarding noted. EXTREMITIES: Negative for clubbing, cyanosis, or edema. RECTAL/GENITAL: Not performed. NEUROLOGIC: Cranial nerves II through XII are grossly intact without focal deficits. Assessment/Plan Assessment/Plan ASSESSMENT: This is an 84-year-old female with: 1. COVID-19 positive. 2. Bilateral pneumonia. 3. Hypertension. 4. Atrial fibrillation. 5. Chronic obstructive pulmonary disease. 6. Coronary artery disease. 7. Congestive heart failure. 8. Diabetes type 2. 9. Hypothyroidism. 10. Hypercholesterolemia. 11. Rheumatoid arthritis. 12. Gastroesophageal reflux disease. 13. Respiratory failure TREATMENT: 1. COVID-19 positive/pneumonia. A Pulmonary consultation has been obtained with Dr. Ann-Marie Graves. The patient has been started empirically on intravenous ceftriaxone. Follow recommendations of Pulmonary. 2. Hypertension. Continue hydralazine as above. 3. Atrial fibrillation. Continue digoxin as above. 4. Chronic obstructive pulmonary disease. As above, a Pulmonary consultation has been obtained with Dr. Ann-Marie Graves. The patient is currently on albuterol nebulized q.4h. p..r.n. 5. Coronary disease/congestive heart failure. An echocardiogram is pending. A Cardiology consultation has been obtained with Dr. Gaming. 6. Diabetes type 2. NovoLog sliding scale has been instituted. 7. Hypothyroidism. Continue Synthroid as above. 8. Hypercholesterolemia. Continue atorvastatin as above. 9. Rheumatoid arthritis. 10. Gastroesophageal reflux disease. Continue Protonix as above. 11. Continue BIPAP Harris Greenfield MD Jan 03, 2020 13:35
[2020-01-03] MEDS ORDERED: Remdesivir Fact Sheet MISC SCH (13:45)
[2020-01-03] MEDS: HydrALAZINE 25mg tab ORAL SCH ×2 (14:00→22:00)
--- NOTE | 2020-01-03 14:35 | NUR ---
RESPIRATORY NOTE: PT STABLE ON BIPAP WITH CURRENT SETTINGS. FACE RE-TAPED. NO WOUNDS FOUND. NO S/S OF RESPIRATORY DISTRESS NOTED AT THIS TIME.
--- NOTE | 2020-01-03 15:10 | NUR ---
INSURANCE CLINICALS SENT TO [facility]) FX [phone]
--- NOTE | 2020-01-03 15:18 | NUR ---
NURSE NOTES: left a message to dr grayson that patient had short episode of paroxysmal afib today.awaiting callback and new order.
--- NOTE | 2020-01-03 15:37 | NUR ---
NURSE NOTES: dr grayson acknowledged the report regarding afib. no new orders received. will continue to monitor.
--- NOTE | 2020-01-03 16:15 | NUR ---
CASE MANAGEMENT: REVIEW SI: HYPOXIA . COVID-19 . PNA T 102.0 HR 103 RR 25 BP 150/79 SAT 98% BIPAP FIO2 100 H/H 10.6/34.6 NA 146 K 3.4 IS: REMDESIVIR IV Q24HR LASIX IV QD CEFTRIAXONE IV Q24HR DECADRON PO QD STEP DOWN UNIT STATUS DCP: PATIENT IS FROM [facility]
[2020-01-03] MEDS ORDERED: Loading Dose:Remdesivir 200mg/NS 210ml IV SCH ×2 (18:00)
--- NOTE | 2020-01-03 19:00 | NUR ---
NURSE NOTES: RECEIVED REPORT FROM ALEX GUTHRIE. PATIENT ASLEEP, OPENS EYES SPONTANEOUSLY, AND EASILY AROUSABLE. NO COMPLAINTS OF PAIN OR DISCOMFORT AT THIS TIME. BREATHING IS EVEN AND UNLABORED ON CONTINUOUS BIPAP WITH CURRENT SETTINGS OF 20/5, FIO2 100%. IV SITES ON LFA 22G PATENT, INTACT, ASYMPTOMATIC AND SALINE-LOCKED; RFA 22G PATENT, INTACT, ASYMPTOMATIC, AND SALINE-LOCKED. GUERRA CATHETER DRAINING WELL TO GRAVITY, URINE CLEAR AND DARK YELLOW IN COLOR. FALL AND ASPIRATION PRECAUTIONS IN PLACE. CONTACT/DROPLET ISOLATION IMPLEMENTED. BED LOCKED AND IN LOWEST POSITION, SIDERAILS UP X 3. CALL LIGHT WITHIN REACH. WILL CONTINUE TO MONITOR PER POC.
--- NOTE | 2020-01-03 19:13 | NUR ---
NURSE HAND-OFF REPORT: Important Events on Shift:episode of paroxysmal afib @ 1000, bui Patient Status: full Diet: npo pending St eval Pending Orders: st eval, sputum collect, labs ashley Pending Results/Labs: Pending MD notification:[] Latest Vital Signs: Temperature 99.7 , Pulse 91 , B/P 113 /55 , Respiratory Rate 25 , O2 SAT 99 , Bi-pap, O2 Flow Rate 10.0 . Vital Sign Comment: stable EKG Rhythm: SR, PVCs Rhythm change?: Eliezer ELIZONDO Notified?: Y -dr kenan ELIZONDO Response: No New Orders Received Latest Shaw Fall Score: 60 Fall Risk: High Risk Safety Measures: Call light Within Reach, Bed Alarm Zone 2, Side Rails Side Rails x2, Bed position Low and Locked. Fall Precautions: Yellow Socks Report given to madison gonzalez
--- NOTE | 2020-01-03 19:14 | Cardiology Progress Note ---
Assessment/Plan Assessment/Plan paf diastolic failure pulm htn 90's copd dm acute covid 19 infection is getting remdezivir and empiric abx contei with duresis monitor on tele noted now on Cardizem will observe for need to start on amiod tele personally reviewed echo noted not on steroid yet repeat trop in am supportive care Objective Last 24 Hour Vital Signs Date Time Temp Pulse Resp B/P (MAP) Pulse Ox O2 Delivery O2 Flow Rate FiO2 01/03/20 16:00 99.7 25 113/55 (74) 99 01/03/20 16:00 Bi-pap 01/03/20 16:00 100 01/03/20 15:13 91 01/03/20 14:35 75 20 95 100 01/03/20 12:48 99.5 01/03/20 12:00 Bi-pap 01/03/20 12:00 100 01/03/20 12:00 100.0 25 137/56 (83) 100 01/03/20 12:00 100 01/03/20 10:36 90 21 96 40 01/03/20 08:00 Bi-pap 01/03/20 08:00 102.0 24 150/79 (102) 98 01/03/20 07:48 103 01/03/20 07:42 100 01/03/20 07:12 96 24 95 40 01/03/20 04:00 Bi-pap 01/03/20 04:00 97.9 91 23 127/61 (83) 92 01/03/20 04:00 40 01/03/20 04:00 95 01/03/20 03:52 90 20 94 40 01/03/20 00:00 98.6 78 23 143/68 (93) 100 01/03/20 00:00 40 01/03/20 00:00 92 01/03/20 00:00 Bi-pap 01/02/20 23:01 88 21 93 40 01/02/20 20:00 40 01/02/20 20:00 98.2 91 20 133/57 (82) 92 01/02/20 20:00 Bi-pap 01/02/20 20:00 89 01/02/20 19:37 86 20 91 40 Intake and Output 01/02/20 01/03/20 19:00 07:00 Intake Total 45 ml Output Total 700 ml 600 ml Balance -700 ml -555 ml IV Total 45 ml Output Urine Total 700 ml 600 ml Laboratory Tests Test 01/03/20 03:47 01/03/20 11:37 01/03/20 15:59 White Blood Count 6.4 K/UL (4.8-10.8) Red Blood Count 4.11 M/UL (4.20-5.40) L Hemoglobin 10.6 G/DL (12.0-16.0) L Hematocrit 34.6 % (37.0-47.0) L Mean Corpuscular Volume 84 FL (80-99) Mean Corpuscular Hemoglobin 25.7 PG (27.0-31.0) L Mean Corpuscular Hemoglobin Concent 30.5 G/DL (32.0-36.0) L Red Cell Distribution Width 16.3 % (11.6-14.8) H Platelet Count 145 K/UL (150-450) L Mean Platelet Volume 7.6 FL (6.5-10.1) Neutrophils (%) (Auto) % (45.0-75.0) Lymphocytes (%) (Auto) % (20.0-45.0) Monocytes (%) (Auto) % (1.0-10.0) Eosinophils (%) (Auto) % (0.0-3.0) Basophils (%) (Auto) % (0.0-2.0) Differential Total Cells Counted 100 Neutrophils % (Manual) 91 % (45-75) H Lymphocytes % (Manual) 6 % (20-45) L Monocytes % (Manual) 3 % (1-10) Eosinophils % (Manual) 0 % (0-3) Basophils % (Manual) 0 % (0-2) Band Neutrophils 0 % (0-8) Platelet Estimate Decreased L Platelet Morphology Normal Hypochromasia 1+ Anisocytosis 1+ Erythrocyte Sedimentation Rate 96 MM/HR (0-30) H Sodium Level 146 MMOL/L (136-145) H Potassium Level 3.4 MMOL/L (3.5-5.1) L Chloride Level 103 MMOL/L (98-107) Carbon Dioxide Level 38 MMOL/L (21-32) H Anion Gap 5 mmol/L (5-15) Blood Urea Nitrogen 49 mg/dL (7-18) H Creatinine 1.1 MG/DL (0.55-1.30) Estimat Glomerular Filtration Rate 47.3 mL/min (>60) Glucose Level 111 MG/DL (74-106) H Calcium Level 9.8 MG/DL (8.5-10.1) Phosphorus Level 2.8 MG/DL (2.5-4.9) Magnesium Level 2.2 MG/DL (1.8-2.4) Total Bilirubin 0.6 MG/DL (0.2-1.0) Aspartate Amino Transf (AST/SGOT) 29 U/L (15-37) Alanine Aminotransferase (ALT/SGPT) 16 U/L (12-78) Alkaline Phosphatase 35 U/L (46-116) L C-Reactive Protein, Quantitative 49.4 mg/dL (0.00-0.90) H Total Protein 7.1 G/DL (6.4-8.2) Albumin 2.5 G/DL (3.4-5.0) L Globulin 4.6 g/dL Albumin/Globulin Ratio 0.5 (1.0-2.7) L POC Whole Blood Glucose Pending 116 MG/DL (74-106) H Microbiology Date/Time Source Procedure Growth Status 01/01/20 04:00 Rectum - Final NO CARBAPENEM-RESISTANT ENTEROBACTERI... Complete 01/01/20 04:00 Rectum VRE Culture - Final Enterococcus Faecium - Vre Complete 01/01/20 04:00 Nasal Nares MRSA Culture - Final NO METHICILLIN RESISTANT STAPH AUREUS... Complete 01/01/20 00:30 Blood Blood Culture - Preliminary NO GROWTH AFTER 24 HOURS Resulted 01/01/20 00:20 Nasopharynx SARS-CoV-2 RdRp Gene Assay - Final Complete 01/01/20 00:15 Blood Blood Culture - Preliminary NO GROWTH AFTER 24 HOURS Resulted Reginaldo Gaming MD Jan 03, 2020 19:14
--- NOTE | 2020-01-03 20:45 | Consultation ---
DATE OF CONSULTATION: 01/03/2020 REFERRING PHYSICIAN: Fernando Peguero M.D. and Ann-Marie Graves M.D. REASON FOR REFERRAL: Atrial fibrillation. HISTORY OF PRESENT ILLNESS: This is an 84-year-old female who [facility] with multiple medical problems. The patient was noted to have low oxygen saturation in the facility and was placed on nonrebreather mask, was transferred to the emergency room here at [facility]. A fever of 102 was documented. The patient was also found to have COVID-19 infection. The patient was admitted to the hospital. Some episodes of atrial fibrillation has been noted on the telemetry. Therefore, this consultation is requested. The patient recently was hospitalized at [facility] on 12/29/2019 for respiratory failure apparently. The details of that admission is not know and just that information was noted in the patient's chart. Information is obtained purely from review of the patient's chart. Examination and interview was deferred due to the patient's active COVID infection. The patient is not able to be interviewed because of limited mental status at the present time. In the chart, medical problems that are listed include a history of chronic obstructive pulmonary disease, atrial fibrillation, diabetes mellitus, systolic and diastolic heart failure, rheumatoid arthritis, hypothyroidism, systemic hypertension, anemia, gastroesophageal reflux disease, inability to walk, hyperlipidemia, coronary artery disease, dysphagia, and respiratory failure with hypoxemia. She has a POLST form filled out that indicated full attempt, full treatment . FAMILY HISTORY: Noncontributory. SOCIAL HISTORY: The patient has a history of tobacco use, but none currently, and has a history of alcohol use. ALLERGIES: The patient is allergic to doxycycline and rifampin. MEDICATIONS: Listed elsewhere. REVIEW OF SYSTEMS: Not able to obtain because of the patient's altered mental status. PHYSICAL EXAMINATION: VITAL SIGNS: Physical examination that was performed by indicated the patient has a temperature of 102.5 and respirations of 20. GENERAL: In moderate respiratory distress. NECK: Supple without adenopathy. CHEST: Decreased breath sounds were noted in bilateral bases and crackles otherwise without wheezes. CARDIAC: Regular rhythm. S1, S2 were normal without murmurs. ABDOMEN: Soft, nontender. Positive bowel sounds. No evidence of hepatosplenomegaly. EXTREMITIES: Negative for clubbing, cyanosis, or edema. LABORATORY AND DIAGNOSTIC DATA: Her laboratory values during this hospitalization have been reviewed. Her most recent white count is 6.4, hemoglobin 10.6, and platelet count 145. The most recent blood gases from 01/01/2020 shows a pH of 7.24, pCO2 94, pO2 of 69, and bicarb of 39, 93% saturation. Sodium is 146, potassium 3.4, chloride 103, bicarb 38, BUN 49, creatinine 1.1, and glucose of 116. Calcium is 9.8, alkaline phosphatase of 35. CRP of 45. ProBNP of 3500 with a albumin of 2.5. Coags, INR of 1 and PTT of 20. D-dimer is 0.8. Digoxin level less than 0.2. Urinalysis, 5-10 rbc's, 0-2 wbc's. Chest x-ray performed in the emergency room initially showed congestive heart failure, pulmonary vascular redistribution and prominence, some interstitial edema consistent with congestive heart failure, and most recent evaluation shows vascular congestion, developing failure, and bilateral patchy infiltrates, slightly worse than the prior examinations. The patient's EKG shows what appears to be sinus and premature atrial contractions, and no significant ST or T-wave abnormalities are noted. Telemetry data was also reviewed, basically appears to show sinus, but some of those are premature ventricular complexes and some premature atrial complexes, and a short run of AFib was noted earlier today, but otherwise mainly in sinus rhythm. ASSESSMENT AND PLAN: 1. Acute COVID-19 pneumonia. 2. Respiratory failure, hypoxemic. 3. Diabetes mellitus. 4. COPD. 5. Hypertension. 6. Former smoker. 7. Reported history of coronary disease. 8. Rheumatoid arthritis. 9. Gastroesophageal reflux disease. 10. Paroxysmal episodes of atrial fibrillation. 11. Hypothyroidism. 12. Pulmonary hypertension. This patient was seen in cardiac consultation. The patient's EKG was reviewed. The patient does have some episodes of atrial fibrillation, but there seemed to be short in duration and in the setting of pneumonia, likely caused by the acute infection. She also carries a diagnosis of congestive heart failure, and the chest x-ray findings are suggestive of congestive heart failure. If her blood pressure allows some room for diureses in the setting of congestive heart failure, that should be provided. An echocardiogram has been performed. Although poor acoustic window, grossly normal left ventricular systolic function was noted with 60-65% ejection fraction and trivial mitral and aortic regurgitation and moderate tricuspid regurgitation. Pulmonary artery systolic pressure was estimated at 96. Reginaldo Gaming M.D. DR: LYNNE JOB#: [id number] CC:
--- NOTE | 2020-01-03 22:40 | NUR ---
NURSE NOTES: CONTACTED DR. RODRIGUEZ REGARDING IVF ORDER- PATIENT HAS BEEN NPO SINCE TIME OF ADMISSION. AWAITING CALL BACK.
[2020-01-04] VITALS: BP 133/74
[2020-01-04 04:00] VITALS: BP 137/40
[2020-01-04 04:28] LABS: HEMATOCRIT 34.2 % (37.0-47.0); HEMOGLOBIN 10.1 G/DL (12.0-16.0); MEAN CORPUSCULAR VOLUME 86 FL (80-99); PLATELET COUNT 131 K/UL (150-450); RED BLOOD COUNT 3.98 M/UL (4.20-5.40); RED CELL DISTRIBUTION WIDTH 16.9 % (11.6-14.8); WHITE BLOOD COUNT 8.8 K/UL (4.8-10.8)
[2020-01-04 04:42] LABS: ALBUMIN 2.3 G/DL (3.4-5.0); ALBUMIN/GLOBULIN RATIO 0.5 (1.0-2.7); BILIRUBIN,TOTAL 0.4 MG/DL (0.2-1.0); CALCIUM 9.7 MG/DL (8.5-10.1); PHOSPHORUS 3.2 MG/DL (2.5-4.9); POTASSIUM 3.7 MMOL/L (3.5-5.1)
--- NOTE | 2020-01-04 05:05 | NUR ---
NURSE NOTES: PATIENT CLEANED, LINEN CHANGED, ORAL CARE PROVIDED- PATIENT TOLERATED WELL. PATIENT REFUSING USE OF PILLOWS DESPITE EDUCATION.
[2020-01-04] MEDS: HydrALAZINE 25mg tab ORAL SCH ×3 (05:17→23:06)
[2020-01-04] MEDS: NovoLOG Insulin Flexpen SUBQ SCH ×4 (05:23→21:00)
--- NOTE | 2020-01-04 05:29 | NUR ---
NURSE NOTES: MADE DR. MENDEZ AWARE OF TROPONIN OF 0.106. NO NEW ORDERS PER DR. MENDEZ.
--- NOTE | 2020-01-04 07:00 | NUR ---
NURSE HAND-OFF REPORT: Important Events on Shift: WOUND CARE, FEVER X 1 Patient Status: STABLE Diet: NPO Pending Orders: VENOUS DUPLEX Pending Results/Labs:01/03 AM LABS Pending MD notification:N/A Latest Vital Signs: Temperature 98.0 , Pulse 98 , B/P 137 /40 , Respiratory Rate 22 , O2 SAT 96 , Bi-pap, O2 Flow Rate 10.0 . Vital Sign Comment: STABLE EKG Rhythm: Sinus Rhythm Rhythm change?: N MD Notified?: Y -dr kenan ELIZONDO Response: No New Orders Received Latest [place] Fall Score: 50 Fall Risk: High Risk Safety Measures: Call light Within Reach, Bed Alarm Zone 2, Side Rails Side Rails x3, Bed position Low and Locked. Fall Precautions: Yellow Socks Report given to ALEX RAMOS. Addendum: 01/04/20 at 0732 by Emily Vance RN WRONG PATIENT
--- NOTE | 2020-01-04 07:20 | NUR ---
NURSE HAND-OFF REPORT: Important Events on Shift: ELEVATED TROPONIN, DESATURATES WHEN BIPAP OFF Patient Status: STABLE Diet: NPO PENDING ST EVAL Pending Orders: ST EVAL, VENOUS DUPLEX, SPUTUM COLLECTION Pending Results/Labs:01/03 AM LABS Pending notification:N/A Latest Vital Signs: Temperature 98.0 , Pulse 98 , B/P 137 /40 , Respiratory Rate 22 , O2 SAT 96 , Bi-pap, O2 Flow Rate 10.0 . Vital Sign Comment: STABLE EKG Rhythm: Sinus Rhythm Rhythm change?: N Notified?: Y -dr kenan ELIZONDO Response: No New Orders Received Latest [place] Fall Score: 50 Fall Risk: High Risk Safety Measures: Call light Within Reach, Bed Alarm Zone 2, Side Rails Side Rails x3, Bed position Low and Locked. Fall Precautions: Yellow Socks Report given to ALEX RAMOS.
--- NOTE | 2020-01-04 07:38 | NUR ---
NURSE NOTES: RECEIVED PATIENT FROM JANAE RN IN BED, DENIES ANY PAIN. PATIENT IS ON CONTINUOUS BIPAP 20/5; 100% FIO2. PATIENT HAS RFA 22G AND LFA 22G BOTH SL. PATIENT IS NPO PENDING ST EVALUATION. NOTED PATIENT HAS LEFT AND RIGHT BUTTOCK REDNESS, BILATERAL HEEL REDNESS, COVERED WITH OPTIFOAM. BED IS ON LOWEST POSITION, BEDSIDE RAILS UP X3, BRAKES ENGAGED FOR SAFETY. CALL LIGHT IS WITHIN REACH. WILL CONTINUE WITH THE PLAN OF CARE.
[2020-01-04 08:00] VITALS: BP 111/52
--- NOTE | 2020-01-04 08:05 | NUR ---
NURSE NOTES: RT NOTIFIED THAT FIO2 WAS TITRATED FROM 100% TO 85%. PATIENT IS TOLERATING WELL AT THIS TIME. WILL CONTINUE TO MONITOR.
[2020-01-04] MEDS: Heparin 5000 units/ml inj SUBQ SCH ×2 (09:00→21:00)
[2020-01-04] MEDS: Digoxin 0.125mg tab ORAL SCH (09:15)
[2020-01-04] MEDS: dilTIAZem HCl 60mg tab ORAL SCH ×2 (09:17→21:00)
[2020-01-04] MEDS: cefTRIAXone 1 GM in D5W 55 ML IVPB SCH (09:19)
--- NOTE | 2020-01-04 10:45 | Pulmonolgy Critical Care Note ---
Critical Care - Asmt/Plan Problems: (1) 2019 novel coronavirus detected (2) Acute on chronic systolic (congestive) heart failure (3) Atrial fibrillation (4) Diabetes mellitus (5) CHF (congestive heart failure) (6) Hypothyroidism (7) Chronic respiratory failure (8) History of hypertension Respiratory: monitor respiratory rate, adjust FIO2, CXR Cardiac: continue pressors, continue to monitor HR/BP Renal: F/U I&O, keep IV fluid, check electrolytes Infectious Disease: check cultures Gastrointestinal: continue feedings/current rate Endocrine: monitor blood sugar, check TSH, check HgA1C, continue sliding scale insulin Hematologic: monitor H/H, transfuse if hgb<8.5 Neurologic: PRN Ativan, keep patient comfortable Affect: PRN ativan Prophylaxis: Heparin Disposition: keep in ICU 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: animal warden, cardio, renal Discussed with: nurses, consultants, case workersales enablement manager - Objective Last 24 Hour Vital Signs Date Time Temp Pulse Resp B/P (MAP) Pulse Ox O2 Delivery O2 Flow Rate FiO2 01/04/20 09:17 98 112/52 01/04/20 09:15 98 01/04/20 07:05 96 20 99 85 01/04/20 05:17 137/40 01/04/20 04:00 Bi-pap 01/04/20 04:00 98 01/04/20 04:00 100 01/04/20 04:00 98.0 22 137/40 (72) 96 01/04/20 02:40 93 23 95 100 01/04/20 00:00 98.9 20 133/74 (93) 100 01/04/20 00:00 83 01/04/20 00:00 Bi-pap 01/03/20 22:36 81 22 98 100 01/03/20 22:00 119/59 01/03/20 21:00 Bi-pap 01/03/20 20:38 82 113/67 01/03/20 20:00 100 01/03/20 20:00 84 01/03/20 20:00 97.5 82 22 119/49 (72) 100 01/03/20 19:39 85 21 97 100 01/03/20 16:00 99.7 25 113/55 (74) 99 01/03/20 16:00 Bi-pap 01/03/20 16:00 100 01/03/20 15:13 91 01/03/20 14:35 75 20 95 100 01/03/20 12:48 99.5 01/03/20 12:00 Bi-pap 01/03/20 12:00 100 01/03/20 12:00 100.0 25 137/56 (83) 100 01/03/20 12:00 100 Status: awake HEENT: atraumatic, normocephalic Lungs: clear, chest wall tender Heart: HR/BP stable Abdomen: soft, non-tender Extremities: no C/C/E, edema Decubiti: location Accucheck: 97 Critical Care - Subjective ROS Limited/Unobtainable: Yes Condition: critical EKG Rhythm: Sinus Rhythm FI02: 85 Sputum Amount: None I&O: Intake and Output 01/03/20 01/04/20 19:00 07:00 Intake Total 855 ml Output Total 600 ml 450 ml Balance 255 ml -450 ml IV Total 855 ml Output Urine Total 600 ml 450 ml CXR: no change Labs: Laboratory Tests Test 01/03/20 11:37 01/03/20 15:59 01/03/20 20:32 01/04/20 02:55 POC Whole Blood Glucose Pending 116 MG/DL (74-106) H Pending White Blood Count 8.8 K/UL (4.8-10.8) Red Blood Count 3.98 M/UL (4.20-5.40) L Hemoglobin 10.1 G/DL (12.0-16.0) L Hematocrit 34.2 % (37.0-47.0) L Mean Corpuscular Volume 86 FL (80-99) Mean Corpuscular Hemoglobin 25.5 PG (27.0-31.0) L Mean Corpuscular Hemoglobin Concent 29.6 G/DL (32.0-36.0) L Red Cell Distribution Width 16.9 % (11.6-14.8) H Platelet Count 131 K/UL (150-450) L Mean Platelet Volume 7.1 FL (6.5-10.1) Neutrophils (%) (Auto) % (45.0-75.0) Lymphocytes (%) (Auto) % (20.0-45.0) Monocytes (%) (Auto) % (1.0-10.0) Eosinophils (%) (Auto) % (0.0-3.0) Basophils (%) (Auto) % (0.0-2.0) Differential Total Cells Counted 100 Neutrophils % (Manual) 86 % (45-75) H Lymphocytes % (Manual) 1 % (20-45) L Monocytes % (Manual) 1 % (1-10) Eosinophils % (Manual) 1 % (0-3) Basophils % (Manual) 0 % (0-2) Band Neutrophils 11 % (0-8) H Platelet Estimate Increased H Platelet Morphology Normal Erythrocyte Sedimentation Rate 100 MM/HR (0-30) H Sodium Level 149 MMOL/L (136-145) H Potassium Level 3.7 MMOL/L (3.5-5.1) Chloride Level 106 MMOL/L (98-107) Carbon Dioxide Level 37 MMOL/L (21-32) H Anion Gap 6 mmol/L (5-15) Blood Urea Nitrogen 54 mg/dL (7-18) H Creatinine 1.0 MG/DL (0.55-1.30) Estimat Glomerular Filtration Rate 52.8 mL/min (>60) Glucose Level 97 MG/DL (74-106) Calcium Level 9.7 MG/DL (8.5-10.1) Phosphorus Level 3.2 MG/DL (2.5-4.9) Magnesium Level 2.2 MG/DL (1.8-2.4) Total Bilirubin 0.4 MG/DL (0.2-1.0) Direct Bilirubin 0.2 MG/DL (0.0-0.3) Aspartate Amino Transf (AST/SGOT) 29 U/L (15-37) Alanine Aminotransferase (ALT/SGPT) 16 U/L (12-78) Alkaline Phosphatase 37 U/L (46-116) L Troponin I 0.106 ng/mL (0.000-0.056) C-Reactive Protein, Quantitative 67.2 mg/dL (0.00-0.90) H Total Protein 6.9 G/DL (6.4-8.2) Albumin 2.3 G/DL (3.4-5.0) L Globulin 4.6 g/dL Albumin/Globulin Ratio 0.5 (1.0-2.7) L Ann-Marie Graves MD Jan 04, 2020 10:45
--- NOTE | 2020-01-04 11:52 | Cardiology Progress Note ---
Assessment/Plan Assessment/Plan paf diastolic failure pulm htn 90's copd dm acute covid 19 infection is getting remdezivir and empiric abx contei with duresis monitor on tele noted now on Cardizem will observe for need to start on amiod tele personally reviewed echo noted not on steroid yet repeat trop in am supportive care Objective Last 24 Hour Vital Signs Date Time Temp Pulse Resp B/P (MAP) Pulse Ox O2 Delivery O2 Flow Rate FiO2 01/04/20 09:17 98 112/52 01/04/20 09:15 98 01/04/20 07:05 96 20 99 85 01/04/20 05:17 137/40 01/04/20 04:00 Bi-pap 01/04/20 04:00 98 01/04/20 04:00 100 01/04/20 04:00 98.0 22 137/40 (72) 96 01/04/20 02:40 93 23 95 100 01/04/20 00:00 98.9 20 133/74 (93) 100 01/04/20 00:00 83 01/04/20 00:00 Bi-pap 01/03/20 22:36 81 22 98 100 01/03/20 22:00 119/59 01/03/20 21:00 Bi-pap 01/03/20 20:38 82 113/67 01/03/20 20:00 100 01/03/20 20:00 84 01/03/20 20:00 97.5 82 22 119/49 (72) 100 01/03/20 19:39 85 21 97 100 01/03/20 16:00 99.7 25 113/55 (74) 99 01/03/20 16:00 Bi-pap 01/03/20 16:00 100 01/03/20 15:13 91 01/03/20 14:35 75 20 95 100 01/03/20 12:48 99.5 01/03/20 12:00 Bi-pap 01/03/20 12:00 100 01/03/20 12:00 100.0 25 137/56 (83) 100 01/03/20 12:00 100 Intake and Output 01/03/20 01/04/20 19:00 07:00 Intake Total 855 ml Output Total 600 ml 450 ml Balance 255 ml -450 ml IV Total 855 ml Output Urine Total 600 ml 450 ml Laboratory Tests Test 01/03/20 15:59 01/03/20 20:32 01/04/20 02:55 POC Whole Blood Glucose 116 MG/DL (74-106) H Pending White Blood Count 8.8 K/UL (4.8-10.8) Red Blood Count 3.98 M/UL (4.20-5.40) L Hemoglobin 10.1 G/DL (12.0-16.0) L Hematocrit 34.2 % (37.0-47.0) L Mean Corpuscular Volume 86 FL (80-99) Mean Corpuscular Hemoglobin 25.5 PG (27.0-31.0) L Mean Corpuscular Hemoglobin Concent 29.6 G/DL (32.0-36.0) L Red Cell Distribution Width 16.9 % (11.6-14.8) H Platelet Count 131 K/UL (150-450) L Mean Platelet Volume 7.1 FL (6.5-10.1) Neutrophils (%) (Auto) % (45.0-75.0) Lymphocytes (%) (Auto) % (20.0-45.0) Monocytes (%) (Auto) % (1.0-10.0) Eosinophils (%) (Auto) % (0.0-3.0) Basophils (%) (Auto) % (0.0-2.0) Differential Total Cells Counted 100 Neutrophils % (Manual) 86 % (45-75) H Lymphocytes % (Manual) 1 % (20-45) L Monocytes % (Manual) 1 % (1-10) Eosinophils % (Manual) 1 % (0-3) Basophils % (Manual) 0 % (0-2) Band Neutrophils 11 % (0-8) H Platelet Estimate Increased H Platelet Morphology Normal Erythrocyte Sedimentation Rate 100 MM/HR (0-30) H Sodium Level 149 MMOL/L (136-145) H Potassium Level 3.7 MMOL/L (3.5-5.1) Chloride Level 106 MMOL/L (98-107) Carbon Dioxide Level 37 MMOL/L (21-32) H Anion Gap 6 mmol/L (5-15) Blood Urea Nitrogen 54 mg/dL (7-18) H Creatinine 1.0 MG/DL (0.55-1.30) Estimat Glomerular Filtration Rate 52.8 mL/min (>60) Glucose Level 97 MG/DL (74-106) Calcium Level 9.7 MG/DL (8.5-10.1) Phosphorus Level 3.2 MG/DL (2.5-4.9) Magnesium Level 2.2 MG/DL (1.8-2.4) Total Bilirubin 0.4 MG/DL (0.2-1.0) Direct Bilirubin 0.2 MG/DL (0.0-0.3) Aspartate Amino Transf (AST/SGOT) 29 U/L (15-37) Alanine Aminotransferase (ALT/SGPT) 16 U/L (12-78) Alkaline Phosphatase 37 U/L (46-116) L Troponin I 0.106 ng/mL (0.000-0.056) C-Reactive Protein, Quantitative 67.2 mg/dL (0.00-0.90) H Total Protein 6.9 G/DL (6.4-8.2) Albumin 2.3 G/DL (3.4-5.0) L Globulin 4.6 g/dL Albumin/Globulin Ratio 0.5 (1.0-2.7) L Objective pt vit covid exam deferred per dr gloria Status: awake HEENT: atraumatic, normocephalic Lungs: clear, chest wall tender Heart: HR/BP stable Abdomen: soft, non-tender Extremities: no C/C/E, edema Reginaldo Gaming MD Jan 04, 2020 11:52
--- NOTE | 2020-01-04 11:59 | Cardiology Progress Note ---
Assessment/Plan Assessment/Plan paf diastolic failure pulm htn 90's copd dm acute covid 19 infection is getting remdezivir and empiric abx and steroids on diuresis but na increasing so will hold until labs available in am monitor on tele: sinus no afib overntie now on Cardizem will observe for need to start on other meds if has recurrence and prolonged afib tele personally reviewed echo noted repeat trop in am supportive care use l[facility]wh for dvt ppx instead of ufh Subjective ROS Limited/Unobtainable: Yes Subjective deferred as pt with covid per rn remain on bipap had swallow eval at risk for worsening repiration with aspiration Objective Last 24 Hour Vital Signs Date Time Temp Pulse Resp B/P (MAP) Pulse Ox O2 Delivery O2 Flow Rate FiO2 01/04/20 09:17 98 112/52 01/04/20 09:15 98 01/04/20 07:05 96 20 99 85 01/04/20 05:17 137/40 01/04/20 04:00 Bi-pap 01/04/20 04:00 98 01/04/20 04:00 100 01/04/20 04:00 98.0 22 137/40 (72) 96 01/04/20 02:40 93 23 95 100 01/04/20 00:00 98.9 20 133/74 (93) 100 01/04/20 00:00 83 01/04/20 00:00 Bi-pap 01/03/20 22:36 81 22 98 100 01/03/20 22:00 119/59 01/03/20 21:00 Bi-pap 01/03/20 20:38 82 113/67 01/03/20 20:00 100 01/03/20 20:00 84 01/03/20 20:00 97.5 82 22 119/49 (72) 100 01/03/20 19:39 85 21 97 100 01/03/20 16:00 99.7 25 113/55 (74) 99 01/03/20 16:00 Bi-pap 01/03/20 16:00 100 01/03/20 15:13 91 01/03/20 14:35 75 20 95 100 01/03/20 12:48 99.5 01/03/20 12:00 Bi-pap 01/03/20 12:00 100 01/03/20 12:00 100.0 25 137/56 (83) 100 01/03/20 12:00 100 Intake and Output 01/03/20 01/04/20 19:00 07:00 Intake Total 855 ml Output Total 600 ml 450 ml Balance 255 ml -450 ml IV Total 855 ml Output Urine Total 600 ml 450 ml Laboratory Tests Test 01/03/20 15:59 01/03/20 20:32 01/04/20 02:55 POC Whole Blood Glucose 116 MG/DL (74-106) H Pending White Blood Count 8.8 K/UL (4.8-10.8) Red Blood Count 3.98 M/UL (4.20-5.40) L Hemoglobin 10.1 G/DL (12.0-16.0) L Hematocrit 34.2 % (37.0-47.0) L Mean Corpuscular Volume 86 FL (80-99) Mean Corpuscular Hemoglobin 25.5 PG (27.0-31.0) L Mean Corpuscular Hemoglobin Concent 29.6 G/DL (32.0-36.0) L Red Cell Distribution Width 16.9 % (11.6-14.8) H Platelet Count 131 K/UL (150-450) L Mean Platelet Volume 7.1 FL (6.5-10.1) Neutrophils (%) (Auto) % (45.0-75.0) Lymphocytes (%) (Auto) % (20.0-45.0) Monocytes (%) (Auto) % (1.0-10.0) Eosinophils (%) (Auto) % (0.0-3.0) Basophils (%) (Auto) % (0.0-2.0) Differential Total Cells Counted 100 Neutrophils % (Manual) 86 % (45-75) H Lymphocytes % (Manual) 1 % (20-45) L Monocytes % (Manual) 1 % (1-10) Eosinophils % (Manual) 1 % (0-3) Basophils % (Manual) 0 % (0-2) Band Neutrophils 11 % (0-8) H Platelet Estimate Increased H Platelet Morphology Normal Erythrocyte Sedimentation Rate 100 MM/HR (0-30) H Sodium Level 149 MMOL/L (136-145) H Potassium Level 3.7 MMOL/L (3.5-5.1) Chloride Level 106 MMOL/L (98-107) Carbon Dioxide Level 37 MMOL/L (21-32) H Anion Gap 6 mmol/L (5-15) Blood Urea Nitrogen 54 mg/dL (7-18) H Creatinine 1.0 MG/DL (0.55-1.30) Estimat Glomerular Filtration Rate 52.8 mL/min (>60) Glucose Level 97 MG/DL (74-106) Calcium Level 9.7 MG/DL (8.5-10.1) Phosphorus Level 3.2 MG/DL (2.5-4.9) Magnesium Level 2.2 MG/DL (1.8-2.4) Total Bilirubin 0.4 MG/DL (0.2-1.0) Direct Bilirubin 0.2 MG/DL (0.0-0.3) Aspartate Amino Transf (AST/SGOT) 29 U/L (15-37) Alanine Aminotransferase (ALT/SGPT) 16 U/L (12-78) Alkaline Phosphatase 37 U/L (46-116) L Troponin I 0.106 ng/mL (0.000-0.056) C-Reactive Protein, Quantitative 67.2 mg/dL (0.00-0.90) H Total Protein 6.9 G/DL (6.4-8.2) Albumin 2.3 G/DL (3.4-5.0) L Globulin 4.6 g/dL Albumin/Globulin Ratio 0.5 (1.0-2.7) L Objective pt vit covid exam deferred per dr gloria Status: awake HEENT: atraumatic, normocephalic Lungs: clear, chest wall tender Heart: HR/BP stable Abdomen: soft, non-tender Extremities: no C/C/E, edema per rn very anxious Reginaldo Gaming MD Jan 04, 2020 11:59
[2020-01-04 12:00] VITALS: BP 118/59
--- NOTE | 2020-01-04 12:01 | NUR ---
Bedside Dysphagia Order received. H and P and consults note all reviewed. Evaluation completed, findings, recommendation were discussed with and ALEX Amaya. The relevant meds were reviewed. Initial Impression: High risk aspiration with respiratory failure Due to high rsk of aspiration with worsening pulmonary NPO except meds were discussed with RN. Gorman f/U on 01/04.
--- NOTE | 2020-01-04 14:57 | NUR ---
CASE MANAGEMENT: REVIEW SI: HYPOXIA . COVID-19 . PNA T 97.7 HR 97 RR 21 BP 112/52 SAT 99% BIPAP FIO2 85 H/H 10.1/34.2 NA 149 BUN 54 TROP 0.106 IS: REMDESIVIR IV Q24HR LASIX IV QD CEFTRIAXONE IV Q24HR DECADRON PO QD STEP DOWN UNIT STATUS DCP: PATIENT IS FROM [facility]
[2020-01-04 16:00] VITALS: BP 129/59
--- NOTE | 2020-01-04 16:42 | Internal Med Progress Note ---
Subjective Date of Service: Jan 04, 2020 Physician Name Harris Greenfield Attending Physician Fernando Peguero MD Current Medications Medications (Trade) Dose Ordered Sig/Brett Route PRN Reason Start Time Stop Time Status Last Admin Dose Admin Acetaminophen (Tylenol) 650 mg Q4H PRN ORAL FEVER 01/01/20 07:00 01/31/20 06:59 01/02/20 05:20 Acetaminophen (Tylenol) 650 mg Q4H PRN RECTAL Temp >100.5 01/03/20 09:30 02/02/20 09:29 01/03/20 12:18 Albuterol/ Ipratropium (Albuterol/ Ipratropium) 3 ml Q4H PRN HHN Shortness of Breath 01/01/20 07:00 01/06/20 06:59 Baclofen (Lioresal) 10 mg THREE TIMES A DAY ORAL 01/01/20 09:00 01/31/20 08:59 01/04/20 13:06 Ceftriaxone Sodium 1 gm/ Dextrose 55 ml @ 110 mls/hr Q24H IVPB 01/01/20 09:00 01/08/20 08:59 01/04/20 09:19 Dexamethasone (Decadron) 4 mg DAILY ORAL 01/01/20 09:00 01/31/20 08:59 01/04/20 09:18 Dextrose (Dextrose 50%) 25 ml Q30M PRN IV Hypoglycemia 01/01/20 08:45 03/31/20 08:44 Dextrose (Dextrose 50%) 50 ml Q30M PRN IV Hypoglycemia 01/01/20 08:45 03/31/20 08:44 Digoxin (Lanoxin) 0.125 mg DAILY ORAL 01/01/20 09:00 03/31/20 08:59 01/04/20 09:15 Diltiazem HCl (Cardizem Tab) 60 mg EVERY 12 HOURS ORAL 01/03/20 09:00 02/02/20 08:59 01/04/20 09:17 Diltiazem HCl (Cardizem) 15 mg Q12H PRN IVP For High Blood Pressure 01/03/20 07:00 02/02/20 06:59 Furosemide (Lasix) 20 mg DAILY IV 01/01/20 09:00 01/31/20 08:59 01/04/20 09:18 Heparin Sodium (Porcine) (Heparin 5000 units/ml) 5,000 units EVERY 12 HOURS SUBQ 01/01/20 09:00 02/15/20 08:59 01/03/20 08:12 Hydralazine HCl (Apresoline) 25 mg EVERY 8 HOURS ORAL 01/03/20 14:00 04/02/20 13:59 01/04/20 13:06 Insulin Aspart (NovoLOG) BEFORE MEALS AND HS SUBQ 01/01/20 11:30 03/31/20 11:29 01/01/20 13:38 Levothyroxine Sodium (Synthroid) 150 mcg DAILY@0630 ORAL 01/01/20 09:00 01/31/20 08:59 01/04/20 05:22 Ondansetron HCl (Zofran) 4 mg Q6H PRN IVP Nausea & Vomiting 01/01/20 07:00 01/31/20 06:59 Polyethylene Glycol (Miralax) 17 gm DAILYPRN PRN ORAL Constipation 01/01/20 07:00 01/31/20 06:59 Promethazine HCl/ Codeine (Phenergan with Codeine) 5 ml Q6H PRN ORAL cough 01/01/20 07:00 01/31/20 06:59 Remdesivir 100 mg/ Sodium Chloride 250 ml @ 250 mls/hr Q24H IV 01/04/20 18:00 01/07/20 18:59 Allergies: Coded Allergies: DOXYCYCLINE (Verified Allergy, Unknown, 04/04/19) RIFAMPIN (Verified Allergy, Unknown, 04/04/19) ROS Limited/Unobtainable: Yes Subjective 84 YO F admitted with hypoxia. Now COVID 19 pneumonia. Cover for Int med-DR Peguero. Step down unit. BIPAP Objective Last Vital Signs Date Time Temp Pulse Resp B/P (MAP) Pulse Ox O2 Delivery O2 Flow Rate FiO2 01/04/20 14:09 97 21 94 85 01/04/20 13:06 118/59 01/04/20 12:00 Bi-pap 01/04/20 12:00 97.7 01/01/20 04:25 10.0 Laboratory Tests Test 01/03/20 20:32 01/04/20 02:55 01/04/20 11:07 01/04/20 16:15 POC Whole Blood Glucose Pending Pending Pending White Blood Count 8.8 K/UL (4.8-10.8) Red Blood Count 3.98 M/UL (4.20-5.40) L Hemoglobin 10.1 G/DL (12.0-16.0) L Hematocrit 34.2 % (37.0-47.0) L Mean Corpuscular Volume 86 FL (80-99) Mean Corpuscular Hemoglobin 25.5 PG (27.0-31.0) L Mean Corpuscular Hemoglobin Concent 29.6 G/DL (32.0-36.0) L Red Cell Distribution Width 16.9 % (11.6-14.8) H Platelet Count 131 K/UL (150-450) L Mean Platelet Volume 7.1 FL (6.5-10.1) Neutrophils (%) (Auto) % (45.0-75.0) Lymphocytes (%) (Auto) % (20.0-45.0) Monocytes (%) (Auto) % (1.0-10.0) Eosinophils (%) (Auto) % (0.0-3.0) Basophils (%) (Auto) % (0.0-2.0) Differential Total Cells Counted 100 Neutrophils % (Manual) 86 % (45-75) H Lymphocytes % (Manual) 1 % (20-45) L Monocytes % (Manual) 1 % (1-10) Eosinophils % (Manual) 1 % (0-3) Basophils % (Manual) 0 % (0-2) Band Neutrophils 11 % (0-8) H Platelet Estimate Increased H Platelet Morphology Normal Erythrocyte Sedimentation Rate 100 MM/HR (0-30) H Sodium Level 149 MMOL/L (136-145) H Potassium Level 3.7 MMOL/L (3.5-5.1) Chloride Level 106 MMOL/L (98-107) Carbon Dioxide Level 37 MMOL/L (21-32) H Anion Gap 6 mmol/L (5-15) Blood Urea Nitrogen 54 mg/dL (7-18) H Creatinine 1.0 MG/DL (0.55-1.30) Estimat Glomerular Filtration Rate 52.8 mL/min (>60) Glucose Level 97 MG/DL (74-106) Calcium Level 9.7 MG/DL (8.5-10.1) Phosphorus Level 3.2 MG/DL (2.5-4.9) Magnesium Level 2.2 MG/DL (1.8-2.4) Total Bilirubin 0.4 MG/DL (0.2-1.0) Direct Bilirubin 0.2 MG/DL (0.0-0.3) Aspartate Amino Transf (AST/SGOT) 29 U/L (15-37) Alanine Aminotransferase (ALT/SGPT) 16 U/L (12-78) Alkaline Phosphatase 37 U/L (46-116) L Troponin I 0.106 ng/mL (0.000-0.056) C-Reactive Protein, Quantitative 67.2 mg/dL (0.00-0.90) H Total Protein 6.9 G/DL (6.4-8.2) Albumin 2.3 G/DL (3.4-5.0) L Globulin 4.6 g/dL Albumin/Globulin Ratio 0.5 (1.0-2.7) L Intake and Output 01/03/20 01/04/20 19:00 07:00 Intake Total 855 ml Output Total 600 ml 450 ml Balance 255 ml -450 ml IV Total 855 ml Output Urine Total 600 ml 450 ml Objective PHYSICAL EXAMINATION: GENERAL: The patient is a well-developed and well-nourished female, in moderate respiratory distress. HEENT: Eyes, pupils equal and responsive to light and accommodation. Extraocular movements are intact. NECK: Supple without lymphadenopathy. CHEST: BIPAP; Decreased breath sounds at bilateral bases with crackles. Otherwise, without wheezes. CARDIOVASCULAR: Regular rhythm and rate. S1, S2 normal without murmurs, rubs, or gallops. ABDOMEN: Soft, nontender, and nondistended. Positive bowel sounds. No evidence of hepatosplenomegaly. Currently, no rebound or guarding noted. EXTREMITIES: Negative for clubbing, cyanosis, or edema. RECTAL/GENITAL: Not performed. NEUROLOGIC: Cranial nerves II through XII are grossly intact without focal deficits. Assessment/Plan Assessment/Plan ASSESSMENT: This is an 84-year-old female with: 1. COVID-19 positive. 2. Bilateral pneumonia. 3. Hypertension. 4. Atrial fibrillation. 5. Chronic obstructive pulmonary disease. 6. Coronary artery disease. 7. Congestive heart failure. 8. Diabetes type 2. 9. Hypothyroidism. 10. Hypercholesterolemia. 11. Rheumatoid arthritis. 12. Gastroesophageal reflux disease. 13. Respiratory failure TREATMENT: 1. COVID-19 positive/pneumonia. A Pulmonary consultation has been obtained with Dr. Ann-Marie Grvaes. ABX=ceftriaxone. Follow recommendations of Pulmonary. 2. Hypertension. Continue hydralazine as above. 3. Atrial fibrillation. Continue digoxin as above. 4. Chronic obstructive pulmonary disease. As above, a Pulmonary consultation has been obtained with Dr. Ann-Marie Graves. The patient is currently on albuterol nebulized q.4h. p..r.n. 5. Coronary disease/congestive heart failure. An echocardiogram is pending. A Cardiology consultation has been obtained with Dr. Gaming. 6. Diabetes type 2. NovoLog sliding scale has been instituted. 7. Hypothyroidism. Continue Synthroid as above. 8. Hypercholesterolemia. Continue atorvastatin as above. 9. Rheumatoid arthritis. 10. Gastroesophageal reflux disease. Continue Protonix as above. 11. Continue BIPAP 12. continue Remdesivir and decadron Harris Greenfield MD Jan 04, 2020 16:42
--- NOTE | 2020-01-04 17:18 | NUR ---
NURSE NOTES: DR MENDEZ WAS NOTIFIED OF THE CARDIA MONITORING CHANGE, SR WITH BIGEMINY/PVC AND PAC. NO NEW ORDER.
[2020-01-04] MEDS: Maintenance Dose:Remdesivir 100mg/NS 230ml x 4 Doses IV SCH ×2 (18:02)
--- NOTE | 2020-01-04 19:20 | NUR ---
Received report from ALEX Amaya. Pt is awake and open eyes spontaneously. Pt is on Bipap with setting as ordered. No signs of respiratory distress noted at this time. Comfortably lying on bed. O2 sat 98%. Pt has no fever or coughing. Bed in lowest position. Call light within reach. Continue to plan of care.
--- NOTE | 2020-01-04 19:32 | NUR ---
NURSE HAND-OFF REPORT: Important Events on Shift:FAILED ST EVAL Patient Status: Diet: Pending Orders: Pending Results/Labs: Pending MD notification: Latest Vital Signs: Temperature 97.9 , Pulse 95 , B/P 129 /59 , Respiratory Rate 20 , O2 SAT 92 , Bi-pap, O2 Flow Rate 10.0 . Vital Sign Comment: STABLE EKG Rhythm: SR/ Bigeminy/PVC/PAC Rhythm change?: N MD Notified?: Eliezer Gaming MD Response: No New Orders Received Latest Shaw Fall Score: 50 Fall Risk: High Risk Safety Measures: Call light Within Reach, Bed Alarm Zone 2, Side Rails Side Rails x3, Bed position Low and Locked. Fall Precautions: Yellow Socks Report given to .
[2020-01-04 20:00] VITALS: BP 101/64
--- NOTE | 2020-01-04 20:00 | NUR ---
Nurses notes: Endorsed by carlos flynn. Dr. Rodrigez aware of episodes of bigeminy,PAC, PVC. Aware of trop I 0.106. Sodium-149. NNO at that moment.
--- NOTE | 2020-01-04 21:00 | NUR ---
NURSE NOTES: Dr. Peguero made aware that pt been NPO since 01/01/20. per Dr. Graves notes pt will be NPO until swallow eval done. Will be repeated today 01/05/20. Dr. Peguero verbalized to refer to Dr. Lopez for order for IV fluids. Awaiting for response of Dr. Graves. COntinue to monitor pt for signs of hypoglycemia.
--- NOTE | 2020-01-04 21:35 | Infectious Diseases Prog Note ---
Assessment/Plan Assessment: Sepsis COVID19 pneumonia Acute hypoxic resp failure sp NRB> Bipap 100% Fio2 -01/01 CXR: Vascular congestion/developing failure and bilateral patchy infiltrates, slightly worse since prior exam. Small bilateral pleural effusions.Prominent mediastinum likely due to tortuous/ectatic thoracic aorta. -12/31 CXR: Centrally predominant interstitial and airspace opacities, pulmonary edema most likely. Cardiomegaly. Fever; improving No leukocytosis Dm2 COPD HTN former smoker CAD CHF RA GERD hypothyroidism Afib [place] resident ([facility]) Plan: -Continue Ceftriaxone #4/5 -Decadron #4/10 -Cont Remdesivir #2 per [facility] criteria- patient cannot provide consent; Benefits outweigh risks. -12/31 SP Cefepime x1, Flagyl x1 -f/u cx -Monitor CBC/CMP, temperatures Thank you for consulting [facility]. Will continue to follow along with you. Discussed wit RN and pharmacy staff. Subjective Allergies: Coded Allergies: DOXYCYCLINE (Verified Allergy, Unknown, 04/04/19) RIFAMPIN (Verified Allergy, Unknown, 04/04/19) * late entry* afebrile >24hrs on bipap no leukocytosis Objective Last 24 Hour Vital Signs Date Time Temp Pulse Resp B/P (MAP) Pulse Ox O2 Delivery O2 Flow Rate FiO2 01/04/20 21:00 68 106/64 01/04/20 19:07 95 20 92 100 01/04/20 16:00 97.9 22 129/59 (82) 94 01/04/20 16:00 97 01/04/20 16:00 Bi-pap 01/04/20 16:00 100 01/04/20 14:09 97 21 94 85 01/04/20 13:06 118/59 01/04/20 12:00 Bi-pap 01/04/20 12:00 85 01/04/20 12:00 97.7 21 118/59 (78) 99 01/04/20 11:05 99 21 95 85 01/04/20 09:17 98 112/52 01/04/20 09:15 98 01/04/20 08:00 99 01/04/20 08:00 Bi-pap 01/04/20 08:00 98.1 20 111/52 (71) 100 01/04/20 08:00 100 01/04/20 07:05 96 20 99 85 01/04/20 05:17 137/40 01/04/20 04:00 Bi-pap 01/04/20 04:00 98 01/04/20 04:00 100 01/04/20 04:00 98.0 22 137/40 (72) 96 01/04/20 02:40 93 23 95 100 01/04/20 00:00 98.9 20 133/74 (93) 100 01/04/20 00:00 83 01/04/20 00:00 Bi-pap 01/03/20 22:36 81 22 98 100 01/03/20 22:00 119/59 Height (Feet): 5 Height (Inches): 2.00 Weight (Pounds): 155 General Appearance: normal inspection, non-toxic, obese, Chronically Ill Head: atraumatic ENT: normal ENT inspection, hearing grossly normal, normal voice Neck: supple, no bony tend, limited range of motion Respiratory: normal inspection, no respiratory distress, no retraction, rales Cardiovascular #1: regular rate, rhythm, edema Gastrointestinal: normal inspection, normal bowel sounds, non tender, soft, no guarding, no hernia Genitourinary: no CVA tenderness Musculoskeletal: back normal Neurologic: oriented x3, other - Somnolent with gag reflex present, withdraws to pain Skin: palpation normal Laboratory Tests Test 01/04/20 02:55 01/04/20 11:07 01/04/20 16:15 White Blood Count 8.8 K/UL (4.8-10.8) Red Blood Count 3.98 M/UL (4.20-5.40) L Hemoglobin 10.1 G/DL (12.0-16.0) L Hematocrit 34.2 % (37.0-47.0) L Mean Corpuscular Volume 86 FL (80-99) Mean Corpuscular Hemoglobin 25.5 PG (27.0-31.0) L Mean Corpuscular Hemoglobin Concent 29.6 G/DL (32.0-36.0) L Red Cell Distribution Width 16.9 % (11.6-14.8) H Platelet Count 131 K/UL (150-450) L Mean Platelet Volume 7.1 FL (6.5-10.1) Neutrophils (%) (Auto) % (45.0-75.0) Lymphocytes (%) (Auto) % (20.0-45.0) Monocytes (%) (Auto) % (1.0-10.0) Eosinophils (%) (Auto) % (0.0-3.0) Basophils (%) (Auto) % (0.0-2.0) Differential Total Cells Counted 100 Neutrophils % (Manual) 86 % (45-75) H Lymphocytes % (Manual) 1 % (20-45) L Monocytes % (Manual) 1 % (1-10) Eosinophils % (Manual) 1 % (0-3) Basophils % (Manual) 0 % (0-2) Band Neutrophils 11 % (0-8) H Platelet Estimate Increased H Platelet Morphology Normal Erythrocyte Sedimentation Rate 100 MM/HR (0-30) H Sodium Level 149 MMOL/L (136-145) H Potassium Level 3.7 MMOL/L (3.5-5.1) Chloride Level 106 MMOL/L (98-107) Carbon Dioxide Level 37 MMOL/L (21-32) H Anion Gap 6 mmol/L (5-15) Blood Urea Nitrogen 54 mg/dL (7-18) H Creatinine 1.0 MG/DL (0.55-1.30) Estimat Glomerular Filtration Rate 52.8 mL/min (>60) Glucose Level 97 MG/DL (74-106) Calcium Level 9.7 MG/DL (8.5-10.1) Phosphorus Level 3.2 MG/DL (2.5-4.9) Magnesium Level 2.2 MG/DL (1.8-2.4) Total Bilirubin 0.4 MG/DL (0.2-1.0) Direct Bilirubin 0.2 MG/DL (0.0-0.3) Aspartate Amino Transf (AST/SGOT) 29 U/L (15-37) Alanine Aminotransferase (ALT/SGPT) 16 U/L (12-78) Alkaline Phosphatase 37 U/L (46-116) L Troponin I 0.106 ng/mL (0.000-0.056) C-Reactive Protein, Quantitative 67.2 mg/dL (0.00-0.90) H Total Protein 6.9 G/DL (6.4-8.2) Albumin 2.3 G/DL (3.4-5.0) L Globulin 4.6 g/dL Albumin/Globulin Ratio 0.5 (1.0-2.7) L POC Whole Blood Glucose Pending Pending Current Medications Medications (Trade) Dose Ordered Sig/Brett Route PRN Reason Start Time Stop Time Status Last Admin Dose Admin Acetaminophen (Tylenol) 650 mg Q4H PRN ORAL FEVER 01/01/20 07:00 01/31/20 06:59 01/02/20 05:20 Acetaminophen (Tylenol) 650 mg Q4H PRN RECTAL Temp >100.5 01/03/20 09:30 02/02/20 09:29 01/03/20 12:18 Albuterol/ Ipratropium (Albuterol/ Ipratropium) 3 ml Q4H PRN HHN Shortness of Breath 01/01/20 07:00 01/06/20 06:59 Baclofen (Lioresal) 10 mg THREE TIMES A DAY ORAL 01/01/20 09:00 01/31/20 08:59 01/04/20 18:02 Ceftriaxone Sodium 1 gm/ Dextrose 55 ml @ 110 mls/hr Q24H IVPB 01/01/20 09:00 01/08/20 08:59 01/04/20 09:19 Dexamethasone (Decadron) 4 mg DAILY ORAL 01/01/20 09:00 01/31/20 08:59 01/04/20 09:18 Dextrose (Dextrose 50%) 25 ml Q30M PRN IV Hypoglycemia 01/01/20 08:45 03/31/20 08:44 Dextrose (Dextrose 50%) 50 ml Q30M PRN IV Hypoglycemia 01/01/20 08:45 03/31/20 08:44 Digoxin (Lanoxin) 0.125 mg DAILY ORAL 01/01/20 09:00 03/31/20 08:59 01/04/20 09:15 Diltiazem HCl (Cardizem Tab) 60 mg EVERY 12 HOURS ORAL 01/03/20 09:00 02/02/20 08:59 01/04/20 09:17 Diltiazem HCl (Cardizem) 15 mg Q12H PRN IVP For High Blood Pressure 01/03/20 07:00 02/02/20 06:59 Furosemide (Lasix) 20 mg DAILY IV 01/01/20 09:00 01/31/20 08:59 01/04/20 09:18 Heparin Sodium (Porcine) (Heparin 5000 units/ml) 5,000 units EVERY 12 HOURS SUBQ 01/01/20 09:00 02/15/20 08:59 01/03/20 08:12 Hydralazine HCl (Apresoline) 25 mg EVERY 8 HOURS ORAL 01/03/20 14:00 04/02/20 13:59 01/04/20 13:06 Insulin Aspart (NovoLOG) BEFORE MEALS AND HS SUBQ 01/01/20 11:30 03/31/20 11:29 01/01/20 13:38 Levothyroxine Sodium (Synthroid) 150 mcg DAILY@0630 ORAL 01/01/20 09:00 01/31/20 08:59 01/04/20 05:22 Ondansetron HCl (Zofran) 4 mg Q6H PRN IVP Nausea & Vomiting 01/01/20 07:00 01/31/20 06:59 Polyethylene Glycol (Miralax) 17 gm DAILYPRN PRN ORAL Constipation 01/01/20 07:00 01/31/20 06:59 Promethazine HCl/ Codeine (Phenergan with Codeine) 5 ml Q6H PRN ORAL cough 01/01/20 07:00 01/31/20 06:59 Remdesivir 100 mg/ Sodium Chloride 250 ml @ 250 mls/hr Q24H IV 01/04/20 18:00 01/07/20 18:59 01/04/20 18:02 Adrienne Cook M.D. Jan 04, 2020 21:35
--- NOTE | 2020-01-04 22:00 | NUR ---
NURSE NOTES: Dr. Peguero and Dr. Graves made aware pt is on NPO since 12/31. Pt is asymptomatic. Pt BS -107 mg/ dl. No cold clammy noted. Pt failed on swallow test.
[2020-01-05] VITALS (35 sets, daily range): BP systolic 72–142; BP diastolic 29–79
--- NOTE | 2020-01-05 02:59 | NUR ---
NURSE NOTES: Pt repositioned. Clean and sponge bath given pt. Pt is restless and anxious. pt refused to have pillows at bed. No signs of distress. on BIPAP on setting as ordered. 02 sat- 97%. No pain noted. Continue to plan of care. No BM noted.
[2020-01-05] MEDS: HydrALAZINE 25mg tab ORAL SCH (05:55)
[2020-01-05] MEDS: NovoLOG Insulin Flexpen SUBQ SCH ×4 (05:56→20:53)
[2020-01-05 05:57] LABS: HEMATOCRIT 37.8 % (37.0-47.0); MEAN CORPUSCULAR VOLUME 87 FL (80-99); PLATELET COUNT 130 K/UL (150-450); RED BLOOD COUNT 4.35 M/UL (4.20-5.40); RED CELL DISTRIBUTION WIDTH 16.8 % (11.6-14.8); WHITE BLOOD COUNT 6.3 K/UL (4.8-10.8)
--- NOTE | 2020-01-05 06:17 | NUR ---
NURSE NOTES: Pt is fighting with medication administration. Insisting to have whole pill. Pt was educated on the swallowing test to be done today. Will endorsed later if she still fighting if we can changed it to IV meds.
--- NOTE | 2020-01-05 06:30 | NUR ---
NURSE NOTES: Seen pt, still on Bipap. Pt IV reinserted. Still patent and intact.
[2020-01-05 06:41] LABS: ALBUMIN 2.3 G/DL (3.4-5.0); ALBUMIN/GLOBULIN RATIO 0.5 (1.0-2.7); BILIRUBIN,DIRECT 0.1 MG/DL (0.0-0.3); BILIRUBIN,TOTAL 0.4 MG/DL (0.2-1.0); CALCIUM 10.5 MG/DL (8.5-10.1); CREATININE 1.4 MG/DL (0.55-1.30); POTASSIUM 3.3 MMOL/L (3.5-5.1)
--- NOTE | 2020-01-05 06:48 | NUR ---
Nurses notes: Noted lab results. Potassium 3.3L, Na- 153. Awaiting for response.
--- NOTE | 2020-01-05 07:30 | NUR ---
NURSE NOTES: Pt was seen no pulse and unconscious. The court recording monitor rushed to the floor that had asystole. Pt is last seen on 06:30 AM. ALEX Bo started CPR, code blue was initiated. Pt o2 sat- 65%. Did CPR and serief meds. 07:40 - pt was intubated and got pulses on the brachial bounding by palpation. sent to ICU. Addendum: 01/05/20 at 0826 by Princess Jeff RN Pt was seen with no BIPAP on, by ALEX Bo. Upon noticing asystole. No alarm was heard, giving endorsement during the time.
--- NOTE | 2020-01-05 08:23 | Emergency Room Report ---
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 COVID-19 Screening: Positive COVID-19 Patient History Now: No Nursing Documentation-PM Past Medical History: No History, Except For Hx Cardiac Problems: Yes - AFIB, ANEMIA, ATHEROSCLEROTIC HEART DISEASE Hx COPD: Yes Hx Cancer: No Hx Gastrointestinal Problems: Yes - METABOLIC ENCEPHALOPATHY, UNSPECIFIED DUODENAL ULCER WITH HEMORRHAGE Hx Neurological Problems: No Physical Exam Vital Signs Date Time Temp Pulse Resp B/P (MAP) Pulse Ox O2 Delivery O2 Flow Rate FiO2 01/01/20 07:47 67 20 94 35 01/01/20 07:53 Bi-Pap 01/01/20 08:00 97.7 104/52 (69) Procedures CPR/Code Blue CPR/Code Blue Narrative I was alerted to a CODE BLUE in the stepdown unit for patient who has been admitted with COVID-19 pneumonia. Patient was on BiPAP. Patient seems to remove the BiPAP and was found in asystole. CODE BLUE was called. When I arrived to the room CPR was in progress and patient was being bagged by respiratory therapy. After the first amp of epi patient remained in asystole. Patient was given an additional 2 doses of epinephrine, 1 amp of sodium bicarbonate, 1 amp of calcium gluconate. Patient's blood glucose was 90 therefore dextrose was not given. Patient had return of pulses and was in sinus rhythm. Patient was also intubated please refer to intubation procedure note. Patient remains in critical condition. Patient moved to ICU. Intubation Intubation : Consent: Emergent Intubation Method: orotracheal Tube Size (cm): 7.5 Breath Sounds after Intubation: equal Intubation Complications: no complications Post Intubation Xray: No - ordered and pending Attempts: One Patient Tolerated: Well Complications: None Medical Decision Making Diagnostic Impression: Primary Impression: 2019 novel coronavirus detected Additional Impressions: Chronic respiratory failure Atrial fibrillation CHF (congestive heart failure) CO2 retention Last Vital Signs Date Time Temp Pulse Resp B/P (MAP) Pulse Ox O2 Delivery O2 Flow Rate FiO2 01/05/20 05:55 117/64 01/05/20 04:00 97.4 22 96 01/05/20 04:00 107 01/05/20 04:00 Bi-pap 01/05/20 04:00 85 Disposition: ADMITTED INPATIENT Condition: Serious Referrals: NON PHYSICIAN (PCP) Aide Haji M.D. Jan 05, 2020 08:23
--- NOTE | 2020-01-05 08:25 | NUR ---
NURSE NOTES: patient post code blue, returned to ROSC and intubated with 7.5 at 25cmby the ER physician, patient taken to room 246-H. ventilator setting are ac 14, TV: 450 fio2 100% and peep of 5
--- NOTE | 2020-01-05 08:41 | Emergency Room Report ---
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 COVID-19 Screening: Positive COVID-19 Patient History Now: No Nursing Documentation-PM Past Medical History: No History, Except For Hx Cardiac Problems: Yes - AFIB, ANEMIA, ATHEROSCLEROTIC HEART DISEASE Hx COPD: Yes Hx Cancer: No Hx Gastrointestinal Problems: Yes - METABOLIC ENCEPHALOPATHY, UNSPECIFIED DUODENAL ULCER WITH HEMORRHAGE Hx Neurological Problems: No Physical Exam Vital Signs Date Time Temp Pulse Resp B/P (MAP) Pulse Ox O2 Delivery O2 Flow Rate FiO2 01/01/20 07:47 67 20 94 35 01/01/20 07:53 Bi-Pap 01/01/20 08:00 97.7 104/52 (69) Medical Decision Making Diagnostic Impression: Primary Impression: 2019 novel coronavirus detected Additional Impressions: Chronic respiratory failure Atrial fibrillation CHF (congestive heart failure) CO2 retention ER Course Patient's post intubation chest x-ray demonstrates right mainstem intubation. I have asked respiratory therapy to pull back the ET tube approximately 3 cm. Blood gas has been ordered and is pending. Patient remains in critical condition with poor prognosis in the ICU. Chest X-Ray Diagnostic Results Chest X-Ray Diagnostic Results : Chest X-Ray Ordered: Yes # of Views/Limited/Complete: 1 View Indication: Other - Intubation EP Interpretation: Yes Interpretation: no effusion, no pneumothorax, other - Bilateral diffuse pulmonary infiltrates with ET tube in the right mainstem approximately 2 cm in the right Impression: Other - Pneumonia and right mainstem intubation Electronically Signed by: Aide Haji MD Last Vital Signs Date Time Temp Pulse Resp B/P (MAP) Pulse Ox O2 Delivery O2 Flow Rate FiO2 01/05/20 05:55 117/64 01/05/20 04:00 97.4 22 96 01/05/20 04:00 107 01/05/20 04:00 Bi-pap 01/05/20 04:00 85 Disposition: ADMITTED INPATIENT Condition: Serious Referrals: NON PHYSICIAN (PCP) Aide Haji M.D. Jan 05, 2020 08:41
[2020-01-05] MEDS ORDERED: Morphine Sulfate 4mg/ml Inj (IV USE ONLY) IVP PRN (08:45)
[2020-01-05] MEDS ORDERED: LORazepam Inj 2mg/ml 1ml IV PRN (08:45)
--- NOTE | 2020-01-05 08:51 | Pulmonolgy Critical Care Note ---
Critical Care - Asmt/Plan Problems: (1) 2019 novel coronavirus detected (2) Acute on chronic systolic (congestive) heart failure (3) Atrial fibrillation (4) Diabetes mellitus (5) CHF (congestive heart failure) (6) Hypothyroidism (7) Chronic respiratory failure (8) History of hypertension Respiratory: monitor respiratory rate, adjust FIO2, CXR Cardiac: continue to monitor HR/BP Renal: F/U I&O, keep IV fluid, increase IV fluid, check electrolytes Infectious Disease: check cultures Gastrointestinal: continue feedings/current rate, hold feedings Endocrine: monitor blood sugar Hematologic: monitor H/H Neurologic: PRN Ativan, keep patient comfortable Affect: PRN ativan Prophylaxis: Protonix, Heparin Time Spent (Minutes): 40 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: air pollution control engineer, cardio, renal Discussed with: nurses, consultants, child welfare caseworkerasset protection manager - Objective Last 24 Hour Vital Signs Date Time Temp Pulse Resp B/P (MAP) Pulse Ox O2 Delivery O2 Flow Rate FiO2 01/05/20 05:55 117/64 01/05/20 04:00 97.4 22 142/69 (93) 96 01/05/20 04:00 107 01/05/20 04:00 Bi-pap 01/05/20 04:00 85 01/05/20 02:52 99 20 93 100 01/05/20 00:00 Bi-pap 01/05/20 00:00 88 01/05/20 00:00 85 01/05/20 00:00 98.1 20 117/64 (81) 97 01/04/20 23:11 78 20 95 100 01/04/20 23:06 120/74 01/04/20 21:00 68 106/64 01/04/20 20:00 85 01/04/20 20:00 98 01/04/20 20:00 96.8 22 101/64 (76) 95 01/04/20 20:00 Bi-pap 01/04/20 19:07 95 20 92 100 01/04/20 16:00 97.9 22 129/59 (82) 94 01/04/20 16:00 97 01/04/20 16:00 Bi-pap 01/04/20 16:00 100 01/04/20 14:09 97 21 94 85 01/04/20 13:06 118/59 01/04/20 12:00 Bi-pap 01/04/20 12:00 85 01/04/20 12:00 97.7 21 118/59 (78) 99 01/04/20 11:05 99 21 95 85 01/04/20 09:17 98 112/52 01/04/20 09:15 98 Status: sedated Condition: critical HEENT: atraumatic, normocephalic Lungs: clear Heart: HR/BP stable, HR/BP unstable Abdomen: soft, non-tender Extremities: no C/C/E, edema Decubiti: stage Accucheck: 121 Critical Care - Subjective ROS Limited/Unobtainable: Yes Interval Events: pt developed respiratory arrest this morning and jesse garcia was called. Apparently the nurse was doing her rounds and entered her room and saw her off the bipap in distress /unresponsive and called the code blue. After intubation pt is transferred to ICU. Condition: critical FI02: 85 Sputum Amount: None I&O: Intake and Output 01/04/20 01/05/20 19:00 07:00 Intake Total 80 ml Output Total 520 ml 450 ml Balance -440 ml -450 ml Intake Oral 80 ml Output Urine Total 520 ml 450 ml # Bowel Movements 2 CXR: extensive bilateral infiltrate. Labs: Laboratory Tests Test 01/04/20 11:07 01/04/20 16:15 01/05/20 03:59 POC Whole Blood Glucose Pending Pending White Blood Count 6.3 K/UL (4.8-10.8) Red Blood Count 4.35 M/UL (4.20-5.40) Hemoglobin 11.0 G/DL (12.0-16.0) L Hematocrit 37.8 % (37.0-47.0) Mean Corpuscular Volume 87 FL (80-99) Mean Corpuscular Hemoglobin 25.2 PG (27.0-31.0) L Mean Corpuscular Hemoglobin Concent 29.1 G/DL (32.0-36.0) L Red Cell Distribution Width 16.8 % (11.6-14.8) H Platelet Count 130 K/UL (150-450) L Mean Platelet Volume 6.9 FL (6.5-10.1) Neutrophils (%) (Auto) % (45.0-75.0) Lymphocytes (%) (Auto) % (20.0-45.0) Monocytes (%) (Auto) % (1.0-10.0) Eosinophils (%) (Auto) % (0.0-3.0) Basophils (%) (Auto) % (0.0-2.0) Differential Total Cells Counted 100 Neutrophils % (Manual) 93 % (45-75) H Lymphocytes % (Manual) 3 % (20-45) L Monocytes % (Manual) 4 % (1-10) Eosinophils % (Manual) 0 % (0-3) Basophils % (Manual) 0 % (0-2) Band Neutrophils 0 % (0-8) Platelet Estimate Decreased L Platelet Morphology Normal Erythrocyte Sedimentation Rate 41 MM/HR (0-30) H Sodium Level 153 MMOL/L (136-145) H Potassium Level 3.3 MMOL/L (3.5-5.1) L Chloride Level 107 MMOL/L (98-107) Carbon Dioxide Level 38 MMOL/L (21-32) H Anion Gap 8 mmol/L (5-15) Blood Urea Nitrogen 77 mg/dL (7-18) H Creatinine 1.4 MG/DL (0.55-1.30) H Estimat Glomerular Filtration Rate 35.8 mL/min (>60) Glucose Level 102 MG/DL (74-106) Calcium Level 10.5 MG/DL (8.5-10.1) H Phosphorus Level 3.0 MG/DL (2.5-4.9) Magnesium Level 2.5 MG/DL (1.8-2.4) H Total Bilirubin 0.4 MG/DL (0.2-1.0) Direct Bilirubin 0.1 MG/DL (0.0-0.3) Aspartate Amino Transf (AST/SGOT) 31 U/L (15-37) Alanine Aminotransferase (ALT/SGPT) 14 U/L (12-78) Alkaline Phosphatase 43 U/L (46-116) L C-Reactive Protein, Quantitative 28.6 mg/dL (0.00-0.90) H Total Protein 6.5 G/DL (6.4-8.2) Albumin 2.3 G/DL (3.4-5.0) L Globulin 4.2 g/dL Albumin/Globulin Ratio 0.5 (1.0-2.7) L Ann-Marie Graves MD Jan 05, 2020 08:51
[2020-01-05] MEDS: dilTIAZem HCl 60mg tab ORAL SCH (09:00)
[2020-01-05] MEDS: Heparin 5000 units/ml inj SUBQ SCH ×2 (09:00→20:26)
[2020-01-05] MEDS: Digoxin 0.125mg tab ORAL SCH (09:00)
[2020-01-05] MEDS ORDERED: Pantoprazole Inj IV SCH (09:00)
--- NOTE | 2020-01-05 09:00 | NUR ---
NURSE NOTES: Et-tube pulled out 2cm after dr tim reviewed the chest x-ray, no follow up x-ray ordered.
[2020-01-05 09:18] LABS: CREATINE KINASE 18 U/L (26-308)
[2020-01-05] MEDS: cefTRIAXone 1 GM in D5W 55 ML IVPB SCH (10:09)
--- NOTE | 2020-01-05 10:30 | NUR ---
NURSE NOTES: Dr. tim made aware of patient low blood pressure, ordered to have d5w to be started and evaluate bp, will call for central line placement.
--- NOTE | 2020-01-05 10:45 | NUR ---
NURSE NOTES: OG-tube inserted at 70cm, air can be heard over the left upper quadrant, awaiting for KUB to confirm placement.
--- NOTE | 2020-01-05 11:04 | NUR ---
RADIOLOGY DEPT., CHEST X-RAY FOR E/TT PLCMT HAS BEEN PERFORMED.INÉS
--- NOTE | 2020-01-05 11:52 | Diagnostic Imaging Report ---
EXAM: XRAY Abdomen 1v HISTORY: Check tube placement. COMPARISON: None. TECHNIQUE: Single view of the abdomen obtained. FINDINGS: Multiple artifacts noted in the upper abdomen. There appears to be an NG tube in the stomach. Nonspecific bowel gas pattern noted with no discrete focal distention or obstruction. No definite pathologic calcifications identified. There is no sign of free air. Extensive bilateral alveolar densities noted in the lung bases. IMPRESSION: NG TUBE APPEARS IN STOMACH. NONSPECIFIC BOWEL GAS PATTERN. BILATERAL AIRSPACE DISEASE IN THE LUNG BASES.
--- NOTE | 2020-01-05 11:58 | NUR ---
Chart reviewed. Pt was coded, intubated this AM. I will sign off from service. Moises Cervantes
--- NOTE | 2020-01-05 12:45 | NUR ---
NURSE NOTES: Dr. Mandel updated on patient post code blue status, no verbal orders given at this time.
[2020-01-05] MEDS ORDERED: NS 275ml ONE ×2 (12:55→13:11)
[2020-01-05] MEDS ORDERED: Calcium Chloride 10% 10ml carpuject IVP ONE (13:16)
[2020-01-05] MEDS ORDERED: Sodium Bicarbonate 8.4% 50ml Inj ONE (13:16)
--- NOTE | 2020-01-05 13:30 | NUR ---
NURSE NOTES: Dr. Graves made aware of patient follow up ABG on setting of Ac16, TV: 600 and FI02 100%. ordered to have peep added to the ventilator setting and have an BMP done to evaluate bun and creatinine.
--- NOTE | 2020-01-05 13:58 | Consultation ---
Consult Note Consult Note I am asked to evaluate the patient at the request of Dr. Peguero for renal failure and fluid and electrolyte management Patient was seen in ICU room H. Discussed with "Mehrdad " RN responsible for the patient. Patient was earlier in stepdown unit today, where she was on BiPAP, however apparently the patient developed asystole, a CODE BLUE was called and subsequently transferred to ICU and currently is intubated and is on ventilator. Patient is not on any pressors at this time. Day 4 of hospitalization of this patient at the [facility]. Patient examined. Laboratory data reviewed. Medication list reviewed. REVIEW OF SYSTEMS: Not able to obtain because of the patient's altered mental status. GENERAL: In moderate respiratory distress. Febrile- Low bp- RR 25 on Bipap previous;ly now intubated NECK: Supple without adenopathy. CHEST: Decreased breath sounds were noted in bilateral bases and crackles otherwise without wheezes. CARDIAC: Regular rhythm. S1, S2 were normal without murmurs. ABDOMEN: Soft, nontender. Positive bowel sounds. No evidence of hepatosplenomegaly. EXTREMITIES: Negative for clubbing, cyanosis, or edema. LABORATORY AND DIAGNOSTIC DATA: Her laboratory values during this hospitalization have been reviewed. Her most recent white count is 6.4, hemoglobin 10.6, and platelet count 145. The most recent blood gases from 01/01/2020 shows a pH of 7.24, pCO2 94, pO2 of 69, and bicarb of 39, 93% saturation. Sodium is 146, potassium 3.4, chloride 103, bicarb 38, BUN 49, creatinine 1.1, and glucose of 116. Calcium is 9.8, alkaline phosphatase of 35. CRP of 45. ProBNP of 3500 with a albumin of 2.5. Coags, INR of 1 and PTT of 20. D-dimer is 0.8. Digoxin level less than 0.2. Urinalysis, 5-10 rbc's, 0-2 wbc's. Chest x-ray performed in the emergency room initially showed congestive heart failure, pulmonary vascular redistribution and prominence, some interstitial edema consistent with congestive heart failure, and most recent evaluation shows vascular congestion, developing failure, and bilateral patchy infiltrates, slightly worse than the prior examinations. The patient's EKG shows what appears to be sinus and premature atrial contractions, and no significant ST or T-wave abnormalities are noted. Telemetry data was also reviewed, basically appears to show sinus, but some of those are premature ventricular complexes and some premature atrial complexes, and a short run of AFib was noted earlier today, but otherwise mainly in sinus rhythm. . Assessment/Plan 85-year-old female admitted 5 days ago, at the time serum creatinine was 0.9 and today the serum creatinine is 1.4, most likely BORIS Hyponatremia secondary to free water deficit Prerenal azotemia COVID-19 virus detected Acute on chronic systolic congestive heart failure Atrial fibrillation Diabetes mellitus Hypothyroidism Hypertension Acute on chronic respiratory failure Suggestions: D5W 100 cc an hour Keep the blood pressure over 100 systolic Monitor renal parameters and electrolytes Avoid nephrotoxic's as possible Urine studies Digoxin level Thyroid function tests Per orders Naun Mandel MD Jan 05, 2020 13:58
--- NOTE | 2020-01-05 14:40 | NUR ---
NURSE NOTES: consent obtained at from Laly Medina to insert central line, nurse verification by kiera quiroz rn. informed Dr. Olivera and is in route to place central line.
--- NOTE | 2020-01-05 14:48 | Operative Note - PDOC ---
Operative Note Operative Note Date of Operation/Procedure: Jan 05, 2020 Pre-op Diagnosis: sepsis hypotension COVID Procedure: left subclavian central venous catheter insertion Post-op Diagnosis: same as pre-op Surgeon: kalli olivera md Anesthesia: local Specimen: none Complications: none Condition: unstable Estimated Blood Loss: minimal Drains: none Implant(s) used?: No Indications for Procedure 85F septic female currently intensive care unit [facility] intubated on support becoming hypotensive potentially requiring pressors I was called by the greenskeeper to place a central venous catheter for fluids meds and potential pressors. Consent obtained from the family. Line placed at bedside. Description of Procedure Patient was made comfortable the bedside. Placed in supine position in the Trendelenburg position. The left chest wall was prepped draped in the same surgical fashion. Finder needle was used and the left subclavian vein was cannulated on first stick without complication. Good venous flow identified. Guidewire placed through the needle needle removed. Small skin incision was made around the guidewire and dilator was used. Triple-lumen catheter was inserted over the guidewire and guidewire was removed and discarded. All 3 ports flushed and aspirated venous blood appropriately without complication. Line sutured in place. Dressings applied. Local anesthetic used for patient's comfort throughout the procedure. Chest x-ray obtained and line in appropriate positioning. Line okay to use. Thank you Kalli Olivera Jan 05, 2020 14:48
--- NOTE | 2020-01-05 15:30 | NUR ---
NURSE NOTES: Dr. Olivera verified placement with chest x-ray of Left subclavian TLC, no further orders given at this time.
--- NOTE | 2020-01-05 15:42 | Diagnostic Imaging Report ---
Indication: Post intubation, status post CODE BLUE Technique: One view of the chest Comparison: 01/02/2020 Findings: Interim endotracheal intubation, endotracheal tube tip projected within the right mainstem bronchus. Bilateral diffuse and extensive infiltrates are unchanged. There are overlying defibrillator paddles. Impression: Malposition of endotracheal tube, tip within the right mainstem bronchus. This was apparently recognized previously, as there is a subsequent radiograph that demonstrates corrected position of such
--- NOTE | 2020-01-05 15:46 | Diagnostic Imaging Report ---
Indication: Post line placement Technique: One view of the chest Comparison: 6 hours earlier Findings: And are improvement in position of previously malpositioned endotracheal tube, tip now projecting 1-2 cm above the garrett. Interim placement of an orogastric tube, tip of which projects beyond the edge of the image, presumably well within the stomach. Interim placement of a left subclavian central venous catheter, tip of which projects at the level of the innominate venous confluence. No pneumothorax. Bilateral infiltrates are again demonstrated, unchanged. Impression: Improved and now satisfactory position of endotracheal tube Interim left subclavian central venous catheter placement, no radiographically evident complication Interim orogastric intubation, apparently satisfactory Unchanged bilateral infiltrates
--- NOTE | 2020-01-05 15:49 | NUR ---
CASE MANAGEMENT: REVIEW SI: HYPOXIA . COVID-19 . PNA T 97.4 HR 115 RR 22 BP 142/69 SAT 93% MECH VENT FIO2 100% NA 153 K 3.3 BUN 77 CR 1.4 ABG: PH 7.496 PCO2 34.6 PO2 196.5 HCO3 26.1 IS: REMDESIVIR IV Q24HR LASIX IV QD CEFTRIAXONE IV Q24HR DECADRON PO QD TRANSFERRED TO ICU TODAY ICU STATUS DCP: PATIENT IS FROM [facility]
--- NOTE | 2020-01-05 16:35 | Infectious Diseases Prog Note ---
Assessment/Plan Assessment: Asystole arrest Sepsis COVID19 pneumonia Acute hypoxic resp failure sp NRB> Bipap 100% Fio2> VDRF 100% -01/01 CXR: Vascular congestion/developing failure and bilateral patchy infiltrates, slightly worse since prior exam. Small bilateral pleural effusions.Prominent mediastinum likely due to tortuous/ectatic thoracic aorta. -12/31 CXR: Centrally predominant interstitial and airspace opacities, pulmonary edema most likely. Cardiomegaly. Fever; SP No leukocytosis Dm2 COPD HTN former smoker CAD CHF RA GERD hypothyroidism Afib NH resident ([facility]) Plan: -Continue Ceftriaxone #5/5 -Decadron #5/10 -Cont Remdesivir #3/5 per OM criteria- patient cannot provide consent; Benefits outweigh risks. -12/31 SP Cefepime x1, Flagyl x1 -f/u cx -Monitor CBC/CMP, temperatures -ETT/ICU care Thank you for consulting [facility]. Will continue to follow along with you. Discussed wit RN and pharmacy staff. Subjective Allergies: Coded Allergies: DOXYCYCLINE (Verified Allergy, Unknown, 04/04/19) RIFAMPIN (Verified Allergy, Unknown, 04/04/19) asystole arrest sp intubation afebrile >48hr Objective Last 24 Hour Vital Signs Date Time Temp Pulse Resp B/P (MAP) Pulse Ox O2 Delivery O2 Flow Rate FiO2 01/05/20 16:00 118 01/05/20 16:00 60 01/05/20 15:26 111 16 100 01/05/20 12:00 92 01/05/20 12:00 100 01/05/20 10:56 93 16 100 01/05/20 09:00 100 01/05/20 08:30 100 01/05/20 08:00 96 01/05/20 07:55 115 16 93 Mechanical Ventilator 01/05/20 07:50 115 16 100 01/05/20 05:55 117/64 01/05/20 04:00 97.4 22 142/69 (93) 96 01/05/20 04:00 107 01/05/20 04:00 Bi-pap 01/05/20 04:00 85 01/05/20 02:52 99 20 93 100 01/05/20 00:00 Bi-pap 01/05/20 00:00 88 9/23/20 00:00 85 01/05/20 00:00 98.1 20 117/64 (81) 97 01/04/20 23:11 78 20 95 100 01/04/20 23:06 120/74 01/04/20 21:00 68 106/64 01/04/20 20:00 85 01/04/20 20:00 98 01/04/20 20:00 96.8 22 101/64 (76) 95 01/04/20 20:00 Bi-pap 01/04/20 19:07 95 20 92 100 Height (Feet): 5 Height (Inches): 2.00 Weight (Pounds): 155 General Appearance: normal inspection, non-toxic, obese, Chronically Ill Head: atraumatic ENT: normal ENT inspection, hearing grossly normal, normal voice Neck: supple, no bony tend, limited range of motion Respiratory: normal inspection, no respiratory distress, no retraction, rales Cardiovascular #1: regular rate, rhythm, edema Gastrointestinal: normal inspection, normal bowel sounds, non tender, soft, no guarding, no hernia Genitourinary: no CVA tenderness Musculoskeletal: back normal Neurologic: oriented x3, other - Somnolent with gag reflex present, withdraws to pain Skin: palpation normal Laboratory Tests Test 01/05/20 03:59 01/05/20 08:51 01/05/20 13:03 White Blood Count 6.3 K/UL (4.8-10.8) Red Blood Count 4.35 M/UL (4.20-5.40) Hemoglobin 11.0 G/DL (12.0-16.0) L Hematocrit 37.8 % (37.0-47.0) Mean Corpuscular Volume 87 FL (80-99) Mean Corpuscular Hemoglobin 25.2 PG (27.0-31.0) L Mean Corpuscular Hemoglobin Concent 29.1 G/DL (32.0-36.0) L Red Cell Distribution Width 16.8 % (11.6-14.8) H Platelet Count 130 K/UL (150-450) L Mean Platelet Volume 6.9 FL (6.5-10.1) Neutrophils (%) (Auto) % (45.0-75.0) Lymphocytes (%) (Auto) % (20.0-45.0) Monocytes (%) (Auto) % (1.0-10.0) Eosinophils (%) (Auto) % (0.0-3.0) Basophils (%) (Auto) % (0.0-2.0) Differential Total Cells Counted 100 Neutrophils % (Manual) 93 % (45-75) H Lymphocytes % (Manual) 3 % (20-45) L Monocytes % (Manual) 4 % (1-10) Eosinophils % (Manual) 0 % (0-3) Basophils % (Manual) 0 % (0-2) Band Neutrophils 0 % (0-8) Platelet Estimate Decreased L Platelet Morphology Normal Erythrocyte Sedimentation Rate 41 MM/HR (0-30) H Sodium Level 153 MMOL/L (136-145) H Potassium Level 3.3 MMOL/L (3.5-5.1) L Chloride Level 107 MMOL/L (98-107) Carbon Dioxide Level 38 MMOL/L (21-32) H Anion Gap 8 mmol/L (5-15) Blood Urea Nitrogen 77 mg/dL (7-18) H Creatinine 1.4 MG/DL (0.55-1.30) H Estimat Glomerular Filtration Rate 35.8 mL/min (>60) Glucose Level 102 MG/DL (74-106) Uric Acid 10.1 MG/DL (2.6-7.2) H Calcium Level 10.5 MG/DL (8.5-10.1) H Phosphorus Level 3.0 MG/DL (2.5-4.9) Magnesium Level 2.5 MG/DL (1.8-2.4) H Total Bilirubin 0.4 MG/DL (0.2-1.0) Direct Bilirubin 0.1 MG/DL (0.0-0.3) Aspartate Amino Transf (AST/SGOT) 31 U/L (15-37) Alanine Aminotransferase (ALT/SGPT) 14 U/L (12-78) Alkaline Phosphatase 43 U/L (46-116) L Total Creatine Kinase 18 U/L (26-308) L C-Reactive Protein, Quantitative 28.6 mg/dL (0.00-0.90) H Total Protein 6.5 G/DL (6.4-8.2) Albumin 2.3 G/DL (3.4-5.0) L Globulin 4.2 g/dL Albumin/Globulin Ratio 0.5 (1.0-2.7) L Arterial Blood pH 7.220 (7.350-7.450) 7.496 (7.350-7.450) Arterial Blood Partial Pressure CO2 64.2 mmHg (35.0-45.0) *H 34.6 mmHg (35.0-45.0) L Arterial Blood Partial Pressure O2 60.0 mmHg (75.0-100.0) L 196.5 mmHg (75.0-100.0) H Arterial Blood HCO3 25.7 mmol/L (22.0-26.0) 26.1 mmol/L (22.0-26.0) H Arterial Blood Oxygen Saturation 86.7 % (95-100) *L 99.1 % (95-100) Arterial Blood Base Excess -2.9 (-2-2) L 2.9 (-2-2) H Chester Test Positive Positive Current Medications Medications (Trade) Dose Ordered Sig/Brett Route PRN Reason Start Time Stop Time Status Last Admin Dose Admin Acetaminophen (Tylenol) 650 mg Q4H PRN ORAL FEVER 01/01/20 07:00 01/31/20 06:59 01/02/20 05:20 Acetaminophen (Tylenol) 650 mg Q4H PRN RECTAL Temp >100.5 01/03/20 09:30 02/02/20 09:29 01/03/20 12:18 Albuterol/ Ipratropium (Albuterol/ Ipratropium) 3 ml Q4H PRN HHN Shortness of Breath 01/01/20 07:00 01/06/20 06:59 Ceftriaxone Sodium 1 gm/ Dextrose 55 ml @ 110 mls/hr Q24H IVPB 01/01/20 09:00 01/08/20 08:59 01/05/20 10:09 Dexamethasone (Decadron) 4 mg DAILY ORAL 01/01/20 09:00 01/31/20 08:59 01/05/20 10:10 Dextrose 1,000 ml @ 100 mls/hr Q10H IV 01/05/20 09:00 02/04/20 08:59 01/05/20 13:44 Dextrose (Dextrose 50%) 25 ml Q30M PRN IV Hypoglycemia 01/01/20 08:45 03/31/20 08:44 Dextrose (Dextrose 50%) 50 ml Q30M PRN IV Hypoglycemia 01/01/20 08:45 03/31/20 08:44 Digoxin (Lanoxin) 0.125 mg DAILY ORAL 01/01/20 09:00 03/31/20 08:59 01/04/20 09:15 Diltiazem HCl (Cardizem) 15 mg Q12H PRN IVP For High Blood Pressure 01/03/20 07:00 02/02/20 06:59 Heparin Sodium (Porcine) (Heparin 5000 units/ml) 5,000 units EVERY 12 HOURS SUBQ 01/01/20 09:00 02/15/20 08:59 01/03/20 08:12 Insulin Aspart (NovoLOG) BEFORE MEALS AND HS SUBQ 01/01/20 11:30 03/31/20 11:29 01/05/20 13:52 Levothyroxine Sodium (Synthroid) 150 mcg DAILY@0630 ORAL 01/06/20 06:30 01/31/20 06:29 Lorazepam (Ativan 2mg/ml 1ml) 2 mg Q4H PRN IV For Anxiety 01/05/20 08:45 01/12/20 08:44 Ondansetron HCl (Zofran) 4 mg Q6H PRN IVP Nausea & Vomiting 01/01/20 07:00 01/31/20 06:59 Pantoprazole (Protonix) 40 mg Q12HR IV 01/05/20 21:00 02/04/20 08:59 Remdesivir 100 mg/ Sodium Chloride 250 ml @ 250 mls/hr Q24H IV 01/04/20 18:00 01/07/20 18:59 01/04/20 18:02 Adrienne Cook M.D. Jan 05, 2020 16:35
--- NOTE | 2020-01-05 16:37 | NUR ---
NURSE NOTES: Dr. Gaming informed of patient code blue status and transfer to ICU, made aware heart rate is ranging from 104 - 120 order to have troponin and EKG done at the bedside, not further order given at this time.
[2020-01-05 17:02] LABS: CALCIUM 9.5 MG/DL (8.5-10.1); CREATININE 1.9 MG/DL (0.55-1.30)
[2020-01-05 17:05] LABS: PHOSPHORUS 1.8 MG/DL (2.5-4.9)
[2020-01-05 17:11] LABS: ALBUMIN/GLOBULIN RATIO 0.6 (1.0-2.7); BILIRUBIN,TOTAL 0.5 MG/DL (0.2-1.0)
[2020-01-05] MEDS: Maintenance Dose:Remdesivir 100mg/NS 230ml x 4 Doses IV SCH ×2 (17:49)
[2020-01-05 18:23] LABS: APPEARANCE,URINE CLOUDY; BILIRUBIN, URINE 1+ (NEGATIVE); COLOR,URINE BROWN; GLUCOSE, URINE (UA) 1+ (NEGATIVE); KETONES,URINE 2+ (NEGATIVE); LEUKOCYTE ESTERASE ,URINE 1+ (NEGATIVE); NITRITE,URINE NEGATIVE (NEGATIVE); PH,URINE 5 (4.5-8.0); PROTEIN,URINE 4+ (NEGATIVE); UROBILINOGEN,URINE 1 MG/DL (0.0-1.0)
--- NOTE | 2020-01-05 18:29 | Cardiology Progress Note ---
Assessment/Plan Assessment/Plan paf pneumonia pulm htn 90's copd dm acute covid 19 infection diastolic failure cardiopulm arrest (pt was found off bipap) respiratory acidosis ARF abn lft probable shock liver i was notfied late this afternoon about todays event cxr personally reviewed has bilateral pulm infiltrates s/p remdezivir on empiric abx and steroids off diuretics persoanlly reviewed tele: asystole, sinsu lakesha , aivr , code blue sheet noted now off Cardizem needs dig level in light of worsening renal fucntion echo noted form a few days ago repeat tropmin abn similar to yest await further trop supportive care at this time not need presor but diana be observed for need vent support heparin for dvt ppx in the settign of unstable renal function post arf remains critically ill and at riks of dying Subjective ROS Limited/Unobtainable: Yes Subjective deferred as pt with covid was found off bipapa this am and had cardiopulm arrest underwent acls was intubated on in [facility] Objective Last 24 Hour Vital Signs Date Time Temp Pulse Resp B/P (MAP) Pulse Ox O2 Delivery O2 Flow Rate FiO2 01/05/20 16:00 118 01/05/20 16:00 60 01/05/20 15:26 111 16 60 01/05/20 12:00 92 01/05/20 12:00 100 01/05/20 10:56 93 16 60 01/05/20 09:00 100 01/05/20 08:46 60 01/05/20 08:30 100 01/05/20 08:00 96 01/05/20 07:55 115 16 93 Mechanical Ventilator 01/05/20 07:50 115 16 100 01/05/20 05:55 117/64 01/05/20 04:00 97.4 22 142/69 (93) 96 01/05/20 04:00 107 01/05/20 04:00 Bi-pap 01/05/20 04:00 85 01/05/20 02:52 99 20 93 100 01/05/20 00:00 Bi-pap 01/05/20 00:00 88 01/05/20 00:00 85 01/05/20 00:00 98.1 20 117/64 (81) 97 01/04/20 23:11 78 20 95 100 01/04/20 23:06 120/74 01/04/20 21:00 68 106/64 01/04/20 20:00 85 01/04/20 20:00 98 01/04/20 20:00 96.8 22 101/64 (76) 95 01/04/20 20:00 Bi-pap 01/04/20 19:07 95 20 92 100 Intake and Output 01/04/20 01/05/20 19:00 07:00 Intake Total 80 ml Output Total 520 ml 450 ml Balance -440 ml -450 ml Intake Oral 80 ml Output Urine Total 520 ml 450 ml # Bowel Movements 2 Laboratory Tests Test 01/05/20 03:59 01/05/20 08:51 01/05/20 13:03 01/05/20 13:43 White Blood Count 6.3 K/UL (4.8-10.8) Red Blood Count 4.35 M/UL (4.20-5.40) Hemoglobin 11.0 G/DL (12.0-16.0) L Hematocrit 37.8 % (37.0-47.0) Mean Corpuscular Volume 87 FL (80-99) Mean Corpuscular Hemoglobin 25.2 PG (27.0-31.0) L Mean Corpuscular Hemoglobin Concent 29.1 G/DL (32.0-36.0) L Red Cell Distribution Width 16.8 % (11.6-14.8) H Platelet Count 130 K/UL (150-450) L Mean Platelet Volume 6.9 FL (6.5-10.1) Neutrophils (%) (Auto) % (45.0-75.0) Lymphocytes (%) (Auto) % (20.0-45.0) Monocytes (%) (Auto) % (1.0-10.0) Eosinophils (%) (Auto) % (0.0-3.0) Basophils (%) (Auto) % (0.0-2.0) Differential Total Cells Counted 100 Neutrophils % (Manual) 93 % (45-75) H Lymphocytes % (Manual) 3 % (20-45) L Monocytes % (Manual) 4 % (1-10) Eosinophils % (Manual) 0 % (0-3) Basophils % (Manual) 0 % (0-2) Band Neutrophils 0 % (0-8) Platelet Estimate Decreased L Platelet Morphology Normal Erythrocyte Sedimentation Rate 41 MM/HR (0-30) H Sodium Level 153 MMOL/L (136-145) H Potassium Level 3.3 MMOL/L (3.5-5.1) L Chloride Level 107 MMOL/L (98-107) Carbon Dioxide Level 38 MMOL/L (21-32) H Anion Gap 8 mmol/L (5-15) Blood Urea Nitrogen 77 mg/dL (7-18) H Creatinine 1.4 MG/DL (0.55-1.30) H Estimat Glomerular Filtration Rate 35.8 mL/min (>60) Glucose Level 102 MG/DL (74-106) Uric Acid 10.1 MG/DL (2.6-7.2) H Calcium Level 10.5 MG/DL (8.5-10.1) H Phosphorus Level 3.0 MG/DL (2.5-4.9) Magnesium Level 2.5 MG/DL (1.8-2.4) H Total Bilirubin 0.4 MG/DL (0.2-1.0) Direct Bilirubin 0.1 MG/DL (0.0-0.3) Aspartate Amino Transf (AST/SGOT) 31 U/L (15-37) Alanine Aminotransferase (ALT/SGPT) 14 U/L (12-78) Alkaline Phosphatase 43 U/L (46-116) L Total Creatine Kinase 18 U/L (26-308) L C-Reactive Protein, Quantitative 28.6 mg/dL (0.00-0.90) H Total Protein 6.5 G/DL (6.4-8.2) Albumin 2.3 G/DL (3.4-5.0) L Globulin 4.2 g/dL Albumin/Globulin Ratio 0.5 (1.0-2.7) L Arterial Blood pH 7.220 (7.350-7.450) 7.496 (7.350-7.450) Arterial Blood Partial Pressure CO2 64.2 mmHg (35.0-45.0) *H 34.6 mmHg (35.0-45.0) L Arterial Blood Partial Pressure O2 60.0 mmHg (75.0-100.0) L 196.5 mmHg (75.0-100.0) H Arterial Blood HCO3 25.7 mmol/L (22.0-26.0) 26.1 mmol/L (22.0-26.0) H Arterial Blood Oxygen Saturation 86.7 % (95-100) *L 99.1 % (95-100) Arterial Blood Base Excess -2.9 (-2-2) L 2.9 (-2-2) H Chester Test Positive Positive POC Whole Blood Glucose 300 MG/DL (74-106) H Test 01/05/20 16:25 01/05/20 18:00 Sodium Level 148 MMOL/L (136-145) H Potassium Level 3.0 MMOL/L (3.5-5.1) L Chloride Level 107 MMOL/L (98-107) Carbon Dioxide Level 30 MMOL/L (21-32) Anion Gap 11 mmol/L (5-15) Blood Urea Nitrogen 89 mg/dL (7-18) H Creatinine 1.9 MG/DL (0.55-1.30) H Estimat Glomerular Filtration Rate 25.2 mL/min (>60) Glucose Level 291 MG/DL (74-106) #H Uric Acid 13.1 MG/DL (2.6-7.2) H Calcium Level 9.5 MG/DL (8.5-10.1) Phosphorus Level 1.8 MG/DL (2.5-4.9) L Magnesium Level 2.2 MG/DL (1.8-2.4) Total Bilirubin 0.5 MG/DL (0.2-1.0) Aspartate Amino Transf (AST/SGOT) 8330 U/L (15-37) H Alanine Aminotransferase (ALT/SGPT) 2264 U/L (12-78) H Alkaline Phosphatase 149 U/L (46-116) H Troponin I 0.113 ng/mL (0.000-0.056) Total Protein 5.6 G/DL (6.4-8.2) L Albumin 2.0 G/DL (3.4-5.0) L Globulin 3.6 g/dL Albumin/Globulin Ratio 0.6 (1.0-2.7) L Urine Color Brown Urine Appearance Cloudy Urine pH 5 (4.5-8.0) Urine Specific [place] 1.015 (1.005-1.035) Urine Protein 4+ (NEGATIVE) H Urine Glucose (UA) 1+ (NEGATIVE) H Urine Ketones 2+ (NEGATIVE) H Urine Blood 5+ (NEGATIVE) H Urine Nitrite Negative (NEGATIVE) Urine Bilirubin 1+ (NEGATIVE) H Urine Ictotest Pending Urine Urobilinogen 1 MG/DL (0.0-1.0) H Urine Leukocyte Esterase 1+ (NEGATIVE) H Urine RBC Pending Urine WBC Pending Urine Squamous Epithelial Cells Pending Urine Bacteria Pending Urine Random Sodium Pending Objective pt vit covid exam deferred per dr gloria Status: awake HEENT: atraumatic, normocephalic Lungs: clear, chest wall tender Heart: HR/BP stable Abdomen: soft, non-tender Extremities: no C/C/E, edema per rn very anxious Reginaldo Gaming MD Jan 05, 2020 18:29
--- NOTE | 2020-01-05 19:02 | Internal Med Progress Note ---
Subjective Date of Service: Jan 05, 2020 Physician Name Harris Greenfield Attending Physician Fernando Peguero MD Current Medications Medications (Trade) Dose Ordered Sig/Brett Route PRN Reason Start Time Stop Time Status Last Admin Dose Admin Acetaminophen (Tylenol) 650 mg Q4H PRN ORAL FEVER 01/01/20 07:00 01/31/20 06:59 01/02/20 05:20 Acetaminophen (Tylenol) 650 mg Q4H PRN RECTAL Temp >100.5 01/03/20 09:30 02/02/20 09:29 01/03/20 12:18 Albumin Human 100 ml @ 100 mls/hr ONCE ONCE IV 01/05/20 19:00 01/05/20 19:59 Albuterol/ Ipratropium (Albuterol/ Ipratropium) 3 ml Q4H PRN HHN Shortness of Breath 01/01/20 07:00 01/06/20 06:59 Ceftriaxone Sodium 1 gm/ Dextrose 55 ml @ 110 mls/hr Q24H IVPB 01/01/20 09:00 01/08/20 08:59 01/05/20 10:09 Dexamethasone (Decadron) 4 mg DAILY ORAL 01/01/20 09:00 01/31/20 08:59 01/05/20 10:10 Dextrose 1,000 ml @ 100 mls/hr Q10H IV 01/05/20 09:00 02/04/20 08:59 01/05/20 17:50 Dextrose (Dextrose 50%) 25 ml Q30M PRN IV Hypoglycemia 01/01/20 08:45 03/31/20 08:44 Dextrose (Dextrose 50%) 50 ml Q30M PRN IV Hypoglycemia 01/01/20 08:45 03/31/20 08:44 Diltiazem HCl (Cardizem) 15 mg Q12H PRN IVP For High Blood Pressure 01/03/20 07:00 02/02/20 06:59 Heparin Sodium (Porcine) (Heparin 5000 units/ml) 5,000 units EVERY 12 HOURS SUBQ 01/01/20 09:00 02/15/20 08:59 01/03/20 08:12 Insulin Aspart (NovoLOG) BEFORE MEALS AND HS SUBQ 01/01/20 11:30 03/31/20 11:29 01/05/20 17:59 Levothyroxine Sodium (Synthroid) 150 mcg DAILY@0630 ORAL 01/06/20 06:30 01/31/20 06:29 Lorazepam (Ativan 2mg/ml 1ml) 2 mg Q4H PRN IV For Anxiety 01/05/20 08:45 01/12/20 08:44 Ondansetron HCl (Zofran) 4 mg Q6H PRN IVP Nausea & Vomiting 01/01/20 07:00 01/31/20 06:59 Pantoprazole (Protonix) 40 mg Q12HR IV 01/05/20 21:00 02/04/20 08:59 Potassium Phosphate 20 mm/ Sodium Chloride 281.6667 ml @ 46.944 m... ONCE ONCE IV 01/05/20 21:00 01/06/20 02:59 Remdesivir 100 mg/ Sodium Chloride 250 ml @ 250 mls/hr Q24H IV 01/04/20 18:00 01/07/20 18:59 01/05/20 17:49 Allergies: Coded Allergies: DOXYCYCLINE (Verified Allergy, Unknown, 04/04/19) RIFAMPIN (Verified Allergy, Unknown, 04/04/19) Subjective 84 YO F admitted with hypoxia. Now COVID 19 pneumonia. Cover for Int med-DR Peguero. Transferred to ICU 01/05/20 AM after code blue. Objective Last Vital Signs Date Time Temp Pulse Resp B/P (MAP) Pulse Ox O2 Delivery O2 Flow Rate FiO2 01/05/20 16:00 118 01/05/20 16:00 60 01/05/20 15:26 16 01/05/20 14:15 119/54 (75) 92 01/05/20 07:55 Mechanical Ventilator 01/05/20 04:00 97.4 01/01/20 04:25 10.0 Laboratory Tests Test 01/05/20 03:59 01/05/20 08:51 01/05/20 13:03 01/05/20 13:43 White Blood Count 6.3 K/UL (4.8-10.8) Red Blood Count 4.35 M/UL (4.20-5.40) Hemoglobin 11.0 G/DL (12.0-16.0) L Hematocrit 37.8 % (37.0-47.0) Mean Corpuscular Volume 87 FL (80-99) Mean Corpuscular Hemoglobin 25.2 PG (27.0-31.0) L Mean Corpuscular Hemoglobin Concent 29.1 G/DL (32.0-36.0) L Red Cell Distribution Width 16.8 % (11.6-14.8) H Platelet Count 130 K/UL (150-450) L Mean Platelet Volume 6.9 FL (6.5-10.1) Neutrophils (%) (Auto) % (45.0-75.0) Lymphocytes (%) (Auto) % (20.0-45.0) Monocytes (%) (Auto) % (1.0-10.0) Eosinophils (%) (Auto) % (0.0-3.0) Basophils (%) (Auto) % (0.0-2.0) Differential Total Cells Counted 100 Neutrophils % (Manual) 93 % (45-75) H Lymphocytes % (Manual) 3 % (20-45) L Monocytes % (Manual) 4 % (1-10) Eosinophils % (Manual) 0 % (0-3) Basophils % (Manual) 0 % (0-2) Band Neutrophils 0 % (0-8) Platelet Estimate Decreased L Platelet Morphology Normal Erythrocyte Sedimentation Rate 41 MM/HR (0-30) H Sodium Level 153 MMOL/L (136-145) H Potassium Level 3.3 MMOL/L (3.5-5.1) L Chloride Level 107 MMOL/L (98-107) Carbon Dioxide Level 38 MMOL/L (21-32) H Anion Gap 8 mmol/L (5-15) Blood Urea Nitrogen 77 mg/dL (7-18) H Creatinine 1.4 MG/DL (0.55-1.30) H Estimat Glomerular Filtration Rate 35.8 mL/min (>60) Glucose Level 102 MG/DL (74-106) Uric Acid 10.1 MG/DL (2.6-7.2) H Calcium Level 10.5 MG/DL (8.5-10.1) H Phosphorus Level 3.0 MG/DL (2.5-4.9) Magnesium Level 2.5 MG/DL (1.8-2.4) H Total Bilirubin 0.4 MG/DL (0.2-1.0) Direct Bilirubin 0.1 MG/DL (0.0-0.3) Aspartate Amino Transf (AST/SGOT) 31 U/L (15-37) Alanine Aminotransferase (ALT/SGPT) 14 U/L (12-78) Alkaline Phosphatase 43 U/L (46-116) L Total Creatine Kinase 18 U/L (26-308) L C-Reactive Protein, Quantitative 28.6 mg/dL (0.00-0.90) H Total Protein 6.5 G/DL (6.4-8.2) Albumin 2.3 G/DL (3.4-5.0) L Globulin 4.2 g/dL Albumin/Globulin Ratio 0.5 (1.0-2.7) L Arterial Blood pH 7.220 (7.350-7.450) 7.496 (7.350-7.450) Arterial Blood Partial Pressure CO2 64.2 mmHg (35.0-45.0) *H 34.6 mmHg (35.0-45.0) L Arterial Blood Partial Pressure O2 60.0 mmHg (75.0-100.0) L 196.5 mmHg (75.0-100.0) H Arterial Blood HCO3 25.7 mmol/L (22.0-26.0) 26.1 mmol/L (22.0-26.0) H Arterial Blood Oxygen Saturation 86.7 % (95-100) *L 99.1 % (95-100) Arterial Blood Base Excess -2.9 (-2-2) L 2.9 (-2-2) H Chester Test Positive Positive POC Whole Blood Glucose 300 MG/DL (74-106) H Test 01/05/20 16:25 01/05/20 18:00 Sodium Level 148 MMOL/L (136-145) H Potassium Level 3.0 MMOL/L (3.5-5.1) L Chloride Level 107 MMOL/L (98-107) Carbon Dioxide Level 30 MMOL/L (21-32) Anion Gap 11 mmol/L (5-15) Blood Urea Nitrogen 89 mg/dL (7-18) H Creatinine 1.9 MG/DL (0.55-1.30) H Estimat Glomerular Filtration Rate 25.2 mL/min (>60) Glucose Level 291 MG/DL (74-106) #H Uric Acid 13.1 MG/DL (2.6-7.2) H Calcium Level 9.5 MG/DL (8.5-10.1) Phosphorus Level 1.8 MG/DL (2.5-4.9) L Magnesium Level 2.2 MG/DL (1.8-2.4) Total Bilirubin 0.5 MG/DL (0.2-1.0) Aspartate Amino Transf (AST/SGOT) 8330 U/L (15-37) H Alanine Aminotransferase (ALT/SGPT) 2264 U/L (12-78) H Alkaline Phosphatase 149 U/L (46-116) H Troponin I 0.113 ng/mL (0.000-0.056) Total Protein 5.6 G/DL (6.4-8.2) L Albumin 2.0 G/DL (3.4-5.0) L Globulin 3.6 g/dL Albumin/Globulin Ratio 0.6 (1.0-2.7) L Urine Color Brown Urine Appearance Cloudy Urine pH 5 (4.5-8.0) Urine Specific [place] 1.015 (1.005-1.035) Urine Protein 4+ (NEGATIVE) H Urine Glucose (UA) 1+ (NEGATIVE) H Urine Ketones 2+ (NEGATIVE) H Urine Blood 5+ (NEGATIVE) H Urine Nitrite Negative (NEGATIVE) Urine Bilirubin 1+ (NEGATIVE) H Urine Ictotest Positive (NEGATIVE) Urine Urobilinogen 1 MG/DL (0.0-1.0) H Urine Leukocyte Esterase 1+ (NEGATIVE) H Urine RBC 15-20 /HPF (0 - 2) H Urine WBC 2-4 /HPF (0 - 2) Urine Squamous Epithelial Cells Occasional /LPF Urine Amorphous Sediment Moderate /LPF (NONE) H Urine Bacteria Few /HPF (NONE) Urine Coarse Granular Casts 5-10 /LPF (NONE) H Urine Random Sodium 27 mmol/L (20-110) Intake and Output 01/04/20 01/05/20 19:00 07:00 Intake Total 80 ml Output Total 520 ml 450 ml Balance -440 ml -450 ml Intake Oral 80 ml Output Urine Total 520 ml 450 ml # Bowel Movements 2 Objective PHYSICAL EXAMINATION: GENERAL: The patient is a well-developed and well-nourished female, in moderate respiratory distress. HEENT: Eyes, pupils equal and responsive to light and accommodation. Extraocular movements are intact. NECK: Supple without lymphadenopathy. CHEST: Mech vent; Decreased breath sounds at bilateral bases with crackles. Otherwise, without wheezes. CARDIOVASCULAR: Regular rhythm and rate. S1, S2 normal without murmurs, rubs, or gallops. ABDOMEN: Soft, nontender, and nondistended. Positive bowel sounds. No evidence of hepatosplenomegaly. Currently, no rebound or guarding noted. EXTREMITIES: Negative for clubbing, cyanosis, or edema. RECTAL/GENITAL: Not performed. NEUROLOGIC: Cranial nerves II through XII are grossly intact without focal deficits. Assessment/Plan Assessment/Plan ASSESSMENT: This is an 84-year-old female with: 1. COVID-19 positive. 2. Bilateral pneumonia. 3. Hypertension. 4. Atrial fibrillation. 5. Chronic obstructive pulmonary disease. 6. Coronary artery disease. 7. Congestive heart failure. 8. Diabetes type 2. 9. Hypothyroidism. 10. Hypercholesterolemia. 11. Rheumatoid arthritis. 12. Gastroesophageal reflux disease. 13. Respiratory failure 14. S/P cardiac arrest 01/05/20 TREATMENT: 1. COVID-19 positive/pneumonia. A Pulmonary consultation has been obtained with Dr. Ann-Marie Graves. ABX=ceftriaxone. Follow recommendations of Pulmonary. 2. Hypertension. Continue hydralazine as above. 3. Atrial fibrillation. Continue digoxin as above. 4. Chronic obstructive pulmonary disease. As above, a Pulmonary consultation has been obtained with Dr. Ann-Marie Graves. The patient is currently on albuterol nebulized q.4h. p..r.n. 5. Coronary disease/congestive heart failure. An echocardiogram is pending. A Cardiology consultation has been obtained with Dr. Gaming. 6. Diabetes type 2. NovoLog sliding scale has been instituted. 7. Hypothyroidism. Continue Synthroid as above. 8. Hypercholesterolemia. Continue atorvastatin as above. 9. Rheumatoid arthritis. 10. Gastroesophageal reflux disease. Continue Protonix as above. 11. Continue mech vent per pulmonary 12. continue Remdesivir and decadron Harris Greenfield MD Jan 05, 2020 19:02
--- NOTE | 2020-01-05 19:28 | NUR ---
RESPIRATORY NOTE: Received pt on AC VC 16, 600VT, 60%, PEEP +5. Pt intubated w/ ETT 7.5 @ 23cm lipline, secured by anchorfast. Pt obtunded. B/S luis. rhonchi/diminished, sxn small amounts of thick, tirado-yellow secretions. Vent plugged into red outlet, ambubag at bedside. Pt in no apparent distress at this time. Will continue to monitor pt.
--- NOTE | 2020-01-05 19:51 | NUR ---
NURSE HAND-OFF REPORT: Latest Vital Signs: Temperature 100.2 , Pulse 12 , B/P 109 /39 , Respiratory Rate 17 , O2 SAT 93 , Mechanical Ventilator, O2 Flow Rate 10.0 . Vital Sign Comment: EKG Rhythm: Sinus Tachycardia Rhythm change?: Eliezer ELIZONDO Notified?: Y -Dr. Mekhi ELIZONDO Response: No New Orders Received Latest Shaw Fall Score: 50 Fall Risk: High Risk Safety Measures: Call light Within Reach, Bed Alarm Zone 2, Side Rails Side Rails x3, Bed position Low and Locked. Fall Precautions: Yellow Socks Report given to ALEX Calixto.
--- NOTE | 2020-01-05 20:00 | NUR ---
NURSE NOTES: SBAR received from Mehrdad JOHNSON. Patient is s/p code blue from earlier today. Patient is orally intubated ETT 7.5/23cm at the lower lip. AC 16, 600tv, 60% Fio2 and peep of 5. OGT noted and clamped. Bilateral pupils reactivity react slightly 3mm bilaterally, patient does not respond to painful stimuli-no facial expressions or movements. Patient is able to blink minimally when testing for blinking reflexes. No gag reflexes noted upon suctioning. 0/5 strength upper extremities and lower extremities. left subclavian TLC noted infusing D5W at 100ml/hr. Peripheral IV lines noted also-SL. Physical assessment performed. Skin intact. Ventilator and airway tubing safety checks performed.
[2020-01-05] MEDS: Pantoprazole Inj IV SCH (20:25)
[2020-01-05] MEDS ORDERED: Potassium Phosphate 20 MM in NS 275 ML IV ONE (21:00)
--- NOTE | 2020-01-05 21:00 | NUR ---
NURSE NOTES: Patients rhythm is afib in the 117-130s, EKG performed and MD notified. Glucose noted to be 185, insulin coverage provided. temp noted to be 100.9F, Tylenol 650mg via OGT and cooling measures provided. Oral care and repositioning provided, ROM offered per patients tolerance very minimal urine output. Blood pressures are stable at this time. Will continue to monitor.
--- NOTE | 2020-01-05 22:00 | NUR ---
NURSE NOTES: Temperature now is 99.4F (ax). Repositioned patient and suctioned, hypoactive gag reflexes. Vitals remains stable. in afib rhythm. Cooling measures ongoing. Will continue to monitor .
[2020-01-06] VITALS (28 sets, daily range): BP systolic 102–164; BP diastolic 53–103
--- NOTE | 2020-01-06 | NUR ---
NURSE NOTES: Central Line dressing changed using aseptic technique. Patient repositioned and provided with oral care. Vitals remains stable at this time, no new neuro changes observed. Hypoactive gag reflexes. No acute distress. Fio2 brought down to 70%. Will continue to monitor.
--- NOTE | 2020-01-06 02:00 | NUR ---
NURSE NOTES: Patient repositioned and suctioned. Vitals remains stable, no new neuro changes observed. Afebrile at this time. Tolerating ventilator settings. Vent and airway tubing safety checks performed. Will continue to monitor.
--- NOTE | 2020-01-06 04:00 | NUR ---
NURSE NOTES: Patient given sponge bath and oral care. Blood drawn and sent to lab. Cooling bath was give. Temperature is 99.2F. IV lines remain intact and patent. NAD at this time, remains at 70% fio2 and saturating 94%. Neuro vasquez remains the same. No acute changes. No urine output. Afib rhythm ranging around 98-110. 12 lead EKG performed and placed in chart. Will continue to monitor.
[2020-01-06 05:41] LABS: HEMATOCRIT 29.5 % (37.0-47.0); HEMOGLOBIN 9.1 G/DL (12.0-16.0); MEAN CORPUSCULAR VOLUME 83 FL (80-99); PLATELET COUNT 98 K/UL (150-450); RED BLOOD COUNT 3.57 M/UL (4.20-5.40); RED CELL DISTRIBUTION WIDTH 16.4 % (11.6-14.8)
[2020-01-06] MEDS: NovoLOG Insulin Flexpen SUBQ SCH ×4 (05:48→20:47)
[2020-01-06 06:18] LABS: PHOSPHORUS 3.7 MG/DL (2.5-4.9)
[2020-01-06 06:39] LABS: CREATINE KINASE 124 U/L (26-308)
[2020-01-06 06:46] LABS: ALANINE AMINOTRANSFERASE 1946 U/L (12-78); ALBUMIN 2.5 G/DL (3.4-5.0); ALBUMIN/GLOBULIN RATIO 0.7 (1.0-2.7); ALKALINE PHOSPHATASE 160 U/L (46-116); ASPARTATE AMINO TRANSFERASE 1404 U/L (15-37); BILIRUBIN,TOTAL 0.6 MG/DL (0.2-1.0); BLOOD UREA NITROGEN 90 mg/dL (7-18); CALCIUM 9.4 MG/DL (8.5-10.1); CARBON DIOXIDE 28 MMOL/L (21-32); CHLORIDE 103 MMOL/L (98-107); CREATININE 2.4 MG/DL (0.55-1.30); POTASSIUM 3.5 MMOL/L (3.5-5.1); SODIUM 142 MMOL/L (136-145)
--- NOTE | 2020-01-06 06:51 | NUR ---
RD ASSESSMENT & RECOMMENDATIONS SEE CARE ACTIVITY FOR COMPLETE ASSESSMENT DAILY ESTIMATED NEEDS: Needs based on Critical care 54kg abw 22-30 kcals/kg 5379-9081 total kcals 1.25-2 g protein/kg 68-108 g total protein 20-25 mL/kg 5376-0478 total fluid mLs NUTRITION DIAGNOSIS: Swallowing difficulty r/t resp status as evidenced by pt adm w/ covid 19 ++, on bipap, now s/p code blue, intubated, NPO. CURRENT DIET:NPO ENTERAL NUTRITION RECOMMENDATIONS: VITAL AF 1.2 goal of 55ml/hr x22 hrs (hold for oral synthroid) to provide 1210ml, 1452 kcal, 91g pro, 981ml free H2O - As medically able, obtain GI access, initiate non oral feeds of VITAL 1.2 to meet est kcal and pro needs - Start @15ml/hr for 6 hrs. Advance as tolerated 10ml/hr q4-6 hrs to goal. - Flush per MD/ HOB over 30 degrees ADDITIONAL RECOMMENDATIONS: 1) Maintain calibrated bed scale wts daily 2) Monitor BG, lytes on TF's-> Pt has been NPO from adm -> K, phos low 3) Feed w/ hemodynamic stability 4) When TF is tolerated at goal, add DONA BID for skin integrity
--- NOTE | 2020-01-06 07:13 | NUR ---
HAND-OFF: Report given to Khoa JOHNSON.
--- NOTE | 2020-01-06 07:14 | NUR ---
NURSE NOTES: Received patient from Durga JOHNSON. Patient is in a coma, no response to stimuli. A. Fib on the heart monitor, HR 114-120. Receiving oxygen via ET Tube 7.5 23cm at the lip line, vent settings: AC 16, TV 600, FiO2 70%, PEEP 5. OGT is patent and intact, patient is NPO. IV site is Right Wrist 20g, Left Wrist 20g, Right Forearm 22g all patent and intact, Left Subclavian TLC is intact and receiving D5W at 100cc/hr. Kelsey catheter is intact and draining. Bed is locked, placed in lowest position, side rails up x3, bed alarm on, head of bed elevated. Will continue to monitor.
[2020-01-06] MEDS: Pantoprazole Inj IV SCH ×2 (08:07→20:34)
[2020-01-06] MEDS: cefTRIAXone 1 GM in D5W 55 ML IVPB SCH (08:07)
[2020-01-06] MEDS: Heparin 5000 units/ml inj SUBQ SCH ×2 (08:08→20:35)
--- NOTE | 2020-01-06 08:15 | NUR ---
NURSE NOTES: Patient has abnormal flexion to light pain, does not track eyes, or respond to name. Medications given as prescribed, patient is afebrile. Will continue to monitor.
--- NOTE | 2020-01-06 09:44 | Nephrology Progress Note ---
Assessment/Plan Problem List: (1) BORIS (acute kidney injury) (2) 2019 novel coronavirus detected (3) Hypothyroidism (4) Diabetes mellitus (5) Atrial fibrillation (6) Shock liver Assessment 85-year-old female admitted 5 days ago, at the time serum creatinine was 0.9 and today the serum creatinine is 1.4, most likely BORIS Hypernatremia secondary to free water deficit Prerenal azotemia COVID-19 virus detected Acute on chronic systolic congestive heart failure Atrial fibrillation Diabetes mellitus Hypothyroidism Hypertension Acute on chronic respiratory failure Plan January 05: Blood pressure stable off pressors. Continue IV fluids. Monitor renal parameters. Monitor liver function tests. Hold oral Synthroid at this time. Continue treatment for sepsis and COVID-19 infection IV fluids Keep the blood pressure over 100 systolic Monitor renal parameters and electrolytes Monitor liver function tests Avoid nephrotoxic's as possible Urine studies Digoxin level Thyroid function tests Per orders Subjective ROS Limited/Unobtainable: Yes Objective Objective Last 24 Hour Vital Signs Date Time Temp Pulse Resp B/P (MAP) Pulse Ox O2 Delivery O2 Flow Rate FiO2 01/06/20 09:00 118 20 132/68 (89) 96 01/06/20 08:00 Mechanical Ventilator 01/06/20 08:00 70 01/06/20 08:00 98.7 111 18 114/66 (82) 96 01/06/20 07:38 101 01/06/20 07:29 116 20 70 01/06/20 07:00 110 20 131/68 (89) 96 01/06/20 06:00 117 20 144/67 (92) 95 01/06/20 05:00 110 18 113/71 (85) 93 01/06/20 04:00 99.2 105 18 120/80 (93) 95 01/06/20 04:00 70 01/06/20 04:00 Mechanical Ventilator 01/06/20 04:00 106 01/06/20 03:17 101 16 70 01/06/20 03:00 103 17 131/73 (92) 93 01/06/20 02:00 100 16 124/72 (89) 96 01/06/20 01:00 100 16 102/55 (71) 96 01/06/20 00:00 70 01/06/20 00:00 Mechanical Ventilator 01/06/20 00:00 100 01/06/20 00:00 98.8 98 16 110/70 (83) 96 01/05/20 23:07 102 16 80 01/05/20 23:00 95 16 92/51 (65) 96 01/05/20 22:00 99.4 111 16 120/66 (84) 97 01/05/20 21:00 121 19 129/75 (93) 97 01/05/20 20:00 80 01/05/20 20:00 100.9 122 18 128/76 (93) 93 01/05/20 20:00 127 01/05/20 20:00 Mechanical Ventilator 01/05/20 19:25 12 17 60 01/05/20 19:00 117 16 109/39 (62) 93 01/05/20 18:30 115 16 104/50 (68) 92 01/05/20 18:00 115 16 108/40 (62) 92 01/05/20 17:30 117 16 110/51 (70) 92 01/05/20 17:00 117 16 116/46 (69) 93 01/05/20 16:30 114 18 119/63 (81) 93 01/05/20 16:00 Mechanical Ventilator 01/05/20 16:00 118 01/05/20 16:00 100.2 115 17 109/44 (65) 90 01/05/20 16:00 60 01/05/20 15:30 111 16 105/48 (67) 96 01/05/20 15:26 111 16 60 01/05/20 15:00 112 17 112/48 (69) 95 01/05/20 14:30 112 16 119/79 (92) 92 01/05/20 14:15 16 119/54 (75) 92 01/05/20 14:00 97 16 128/45 (72) 93 01/05/20 14:00 16 128/45 (72) 93 01/05/20 13:45 16 111/53 (72) 93 01/05/20 13:30 95 16 109/47 (67) 94 01/05/20 13:30 16 109/47 (67) 94 01/05/20 13:15 16 120/50 (73) 100 01/05/20 13:00 87 16 111/50 (70) 100 01/05/20 13:00 16 111/50 (70) 100 01/05/20 12:45 16 104/50 (68) 100 01/05/20 12:30 16 108/41 (63) 100 01/05/20 12:30 88 16 108/41 (63) 100 01/05/20 12:15 16 101/43 (62) 100 01/05/20 12:00 92 01/05/20 12:00 16 102/46 (64) 99 01/05/20 12:00 98.9 94 16 102/46 (64) 99 01/05/20 12:00 100 01/05/20 12:00 Mechanical Ventilator 01/05/20 11:45 16 84/40 (55) 99 01/05/20 11:30 93 15 90/40 (57) 98 01/05/20 11:30 15 90/40 (57) 98 01/05/20 11:15 16 88/36 (53) 98 01/05/20 11:00 16 86/37 (53) 98 01/05/20 11:00 88 16 86/37 (53) 98 01/05/20 10:56 93 16 60 01/05/20 10:45 16 78/37 (51) 95 01/05/20 10:30 90 16 75/29 (44) 92 01/05/20 10:30 16 75/29 (44) 92 01/05/20 10:21 16 72/33 (46) 94 01/05/20 10:15 16 73/31 (45) 94 01/05/20 10:00 16 72/33 (46) 93 01/05/20 10:00 92 16 72/33 (46) 93 Intake and Output 01/05/20 01/06/20 19:00 07:00 Intake Total 1985.41424 ml 1619 ml Output Total 190 ml 70 ml Balance 1795.69578 ml 1549 ml Free Water 50 ml IV Total 1985.40207 ml 1569 ml Output Urine Total 190 ml 70 ml # Bowel Movements 2 Laboratory Tests 01/05/20 13:03: Arterial Blood pH 7.496H, Arterial Blood Partial Pressure CO2 34.6L, Arterial B lood Partial Pressure O2 196.5H, Arterial Blood HCO3 26.1H, Arterial Blood Oxygen Saturation 99.1, Arterial Blood Base Excess 2.9H, [place] Test Positive 01/05/20 13:43: POC Whole Blood Glucose 300H 01/05/20 16:25: Sodium Level 148H, Potassium Level 3.0L, Chloride Level 107, Carbon Dioxide [place] 30, Anion Gap 11, Blood Urea Nitrogen 89H, Creatinine 1.9H, Estimat Glomerular Filtration Rate 25.2, Glucose Level 291#H, Uric Acid 13.1H, Calcium Level 9.5, Phosphorus Level 1.8L, Magnesium Level 2.2, Total Bilirubin 0.5, Aspartate Amino Transf (AST/SGOT) 8330H, Alanine Aminotransferase (ALT/SGPT) 2264H, Alkaline Phosphatase 149H, Troponin I 0.113H, Total Protein 5.6L, Albumin 2.0L, Globulin 3.6, Albumin/Globulin Ratio 0.6L 01/05/20 18:00: Urine Color Brown, Urine Appearance Cloudy, Urine pH 5, Urine Specific [place] 1.015, Urine Protein 4+H, Urine Glucose (UA) 1+H, Urine Ketones 2+H, Urine Blood 5+H, Urine Nitrite Negative, Urine Bilirubin 1+H, Urine Ictotest Positive, Urine Urobilinogen 1H, Urine Leukocyte Esterase 1+H, Urine RBC 15-20H, Urine WBC 2-4, Urine Squamous Epithelial Cells Occasional, Urine Amorphous Sediment ModerateH, Urine Bacteria Few, Urine Coarse Granular Casts 5-10H, Urine Random Sodium 27 01/05/20 20:52: POC Whole Blood Glucose [Pending] 01/06/20 04:00: White Blood Count 10.0#, Red Blood Count 3.57L, Hemoglobin 9.1L, Hematocrit 29.5L, Mean Corpuscular Volume 83, Mean Corpuscular Hemoglobin 25.6L, Mean Corpuscular Hemoglobin Concent 31.0L, Red Cell Distribution Width 16.4H, Platelet Count 98L, Mean Platelet Volume 7.7, Neutrophils (%) (Auto) , Lymphocytes (%) (Auto) , Monocytes (%) (Auto) , Eosinophils (%) (Auto) , Basophils (%) (Auto) , Differential Total Cells Counted 100, Neutrophils % (Manual) 92H, Lymphocytes % (Manual) 5L, Monocytes % (Manual) 3, Eosinophils % (Manual) 0, Basophils % (Manual) 0, Band Neutrophils 0, Platelet Estimate DecreasedL, Platelet Morphology Normal, Hypochromasia 1+, Anisocytosis 1+, Sodium Level 142, Potassium Level 3.5, Chloride Level 103, Carbon Dioxide Level 28, Blood Urea Nitrogen 90H, Creatinine 2.4H, Estimat Glomerular Filtration Rate 19.2, Glucose Level 183#H, Calcium Level 9.4, Phosphorus Level 3.7, Magnesium Level 2.1, Total Bilirubin 0.6, Aspartate Amino Transf (AST/SGOT) 1404H, Alanine Aminotransferase (ALT/SGPT) 1946H, Alkaline Phosphatase 160H, Total Creatine Kinase 124, Troponin I 2.161H, C-Reactive Protein, Quantitative 35.4H, Pro-B-Type Natriuretic Peptide 20985L, Total Protein 5.9L, Albumin 2.5L, Globulin 3.4, Albumin/Globulin Ratio 0.7L, Thyroid Stimulating Hormone (TSH) 1.288, Free Thyroxine 1.40, Free Triiodothyronine 0.6L, Digoxin Level 0.3L 01/06/20 08:08: Gamma Glutamyl Transpeptidase 43 Height (Feet): 5 Height (Inches): 2.00 Weight (Pounds): 155 General Appearance: no apparent distress EENT: other - Intubated on ventilator Cardiovascular: tachycardia Respiratory/Chest: decreased breath sounds Abdomen: distended Naun Mandel MD Jan 06, 2020 09:44
--- NOTE | 2020-01-06 09:51 | Pulmonolgy Critical Care Note ---
Critical Care - Asmt/Plan Problems: (1) 2019 novel coronavirus detected (2) Acute on chronic systolic (congestive) heart failure (3) Atrial fibrillation (4) Diabetes mellitus (5) CHF (congestive heart failure) (6) Hypothyroidism (7) Chronic respiratory failure (8) History of hypertension Respiratory: monitor respiratory rate, adjust FIO2, CXR Cardiac: continue pressors, continue to monitor HR/BP Renal: F/U I&O, keep IV fluid, check electrolytes Infectious Disease: check cultures, continue antibiotics Gastrointestinal: continue feedings/current rate Endocrine: monitor blood sugar Hematologic: monitor H/H, transfuse if hgb<8.5 Neurologic: PRN Ativan, keep patient comfortable Affect: PRN ativan Disposition: keep in ICU Time Spent (Minutes): 40 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: clinical informatics strategist, cardio Discussed with: nurses, consultants, clinical case managerquality compliance manager - Objective Last 24 Hour Vital Signs Date Time Temp Pulse Resp B/P (MAP) Pulse Ox O2 Delivery O2 Flow Rate FiO2 01/06/20 09:00 118 20 132/68 (89) 96 01/06/20 08:00 Mechanical Ventilator 01/06/20 08:00 70 01/06/20 08:00 98.7 111 18 114/66 (82) 96 01/06/20 07:38 101 01/06/20 07:29 116 20 70 01/06/20 07:00 110 20 131/68 (89) 96 01/06/20 06:00 117 20 144/67 (92) 95 01/06/20 05:00 110 18 113/71 (85) 93 01/06/20 04:00 99.2 105 18 120/80 (93) 95 01/06/20 04:00 70 01/06/20 04:00 Mechanical Ventilator 01/06/20 04:00 106 01/06/20 03:17 101 16 70 01/06/20 03:00 103 17 131/73 (92) 93 01/06/20 02:00 100 16 124/72 (89) 96 01/06/20 01:00 100 16 102/55 (71) 96 01/06/20 00:00 70 01/06/20 00:00 Mechanical Ventilator 01/06/20 00:00 100 01/06/20 00:00 98.8 98 16 110/70 (83) 96 01/05/20 23:07 102 16 80 9/23/20 23:00 95 16 92/51 (65) 96 01/05/20 22:00 99.4 111 16 120/66 (84) 97 01/05/20 21:00 121 19 129/75 (93) 97 01/05/20 20:00 80 01/05/20 20:00 100.9 122 18 128/76 (93) 93 01/05/20 20:00 127 01/05/20 20:00 Mechanical Ventilator 01/05/20 19:25 12 17 60 01/05/20 19:00 117 16 109/39 (62) 93 01/05/20 18:30 115 16 104/50 (68) 92 01/05/20 18:00 115 16 108/40 (62) 92 01/05/20 17:30 117 16 110/51 (70) 92 01/05/20 17:00 117 16 116/46 (69) 93 01/05/20 16:30 114 18 119/63 (81) 93 01/05/20 16:00 Mechanical Ventilator 01/05/20 16:00 118 01/05/20 16:00 100.2 115 17 109/44 (65) 90 01/05/20 16:00 60 01/05/20 15:30 111 16 105/48 (67) 96 01/05/20 15:26 111 16 60 01/05/20 15:00 112 17 112/48 (69) 95 01/05/20 14:30 112 16 119/79 (92) 92 01/05/20 14:15 16 119/54 (75) 92 01/05/20 14:00 97 16 128/45 (72) 93 01/05/20 14:00 16 128/45 (72) 93 01/05/20 13:45 16 111/53 (72) 93 01/05/20 13:30 95 16 109/47 (67) 94 01/05/20 13:30 16 109/47 (67) 94 01/05/20 13:15 16 120/50 (73) 100 01/05/20 13:00 87 16 111/50 (70) 100 01/05/20 13:00 16 111/50 (70) 100 01/05/20 12:45 16 104/50 (68) 100 01/05/20 12:30 16 108/41 (63) 100 01/05/20 12:30 88 16 108/41 (63) 100 01/05/20 12:15 16 101/43 (62) 100 01/05/20 12:00 92 01/05/20 12:00 16 102/46 (64) 99 01/05/20 12:00 98.9 94 16 102/46 (64) 99 01/05/20 12:00 100 01/05/20 12:00 Mechanical Ventilator 01/05/20 11:45 16 84/40 (55) 99 01/05/20 11:30 93 15 90/40 (57) 98 01/05/20 11:30 15 90/40 (57) 98 01/05/20 11:15 16 88/36 (53) 98 01/05/20 11:00 16 86/37 (53) 98 01/05/20 11:00 88 16 86/37 (53) 98 01/05/20 10:56 93 16 60 01/05/20 10:45 16 78/37 (51) 95 01/05/20 10:30 90 16 75/29 (44) 92 01/05/20 10:30 16 75/29 (44) 92 01/05/20 10:21 16 72/33 (46) 94 01/05/20 10:15 16 73/31 (45) 94 01/05/20 10:00 16 72/33 (46) 93 01/05/20 10:00 92 16 72/33 (46) 93 Status: awake, sedated Condition: critical HEENT: atraumatic, normocephalic Neck: full ROM Lungs: chest wall tender Heart: HR/BP stable Abdomen: soft, non-tender Extremities: no C/C/E Accucheck: 185 Critical Care - Subjective ROS Limited/Unobtainable: Yes Condition: critical EKG Rhythm: Sinus Rhythm FI02: 70 Vent Support Breath Rate: 16 Vent Support Mode: AC Vent Tidal Volume: 600 Sputum Amount: Scant PEEP: 5.0 PIP: 34 I&O: Intake and Output 01/05/20 01/06/20 19:00 07:00 Intake Total 1985.93481 ml 1619 ml Output Total 190 ml 70 ml Balance 1795.15190 ml 1549 ml Free Water 50 ml IV Total 1985.17403 ml 1569 ml Output Urine Total 190 ml 70 ml # Bowel Movements 2 CXR: increasing infiltrate and pulmonary edema ET-Tube: 7.5 ET Position: 23 Labs: Laboratory Tests Test 01/05/20 13:03 01/05/20 13:43 01/05/20 16:25 01/05/20 18:00 Arterial Blood pH 7.496 (7.350-7.450) Arterial Blood Partial Pressure CO2 34.6 mmHg (35.0-45.0) L Arterial Blood Partial Pressure O2 196.5 mmHg (75.0-100.0) H Arterial Blood HCO3 26.1 mmol/L (22.0-26.0) H Arterial Blood Oxygen Saturation 99.1 % (95-100) Arterial Blood Base Excess 2.9 (-2-2) H [place] Test Positive POC Whole Blood Glucose 300 MG/DL (74-106) H Sodium Level 148 MMOL/L (136-145) H Potassium Level 3.0 MMOL/L (3.5-5.1) L Chloride Level 107 MMOL/L (98-107) Carbon Dioxide Level 30 MMOL/L (21-32) Anion Gap 11 mmol/L (5-15) Blood Urea Nitrogen 89 mg/dL (7-18) H Creatinine 1.9 MG/DL (0.55-1.30) H Estimat Glomerular Filtration Rate 25.2 mL/min (>60) Glucose Level 291 MG/DL (74-106) #H Uric Acid 13.1 MG/DL (2.6-7.2) H Calcium Level 9.5 MG/DL (8.5-10.1) Phosphorus Level 1.8 MG/DL (2.5-4.9) L Magnesium Level 2.2 MG/DL (1.8-2.4) Total Bilirubin 0.5 MG/DL (0.2-1.0) Aspartate Amino Transf (AST/SGOT) 8330 U/L (15-37) H Alanine Aminotransferase (ALT/SGPT) 2264 U/L (12-78) H Alkaline Phosphatase 149 U/L (46-116) H Troponin I 0.113 ng/mL (0.000-0.056) Total Protein 5.6 G/DL (6.4-8.2) L Albumin 2.0 G/DL (3.4-5.0) L Globulin 3.6 g/dL Albumin/Globulin Ratio 0.6 (1.0-2.7) L Urine Color Brown Urine Appearance Cloudy Urine pH 5 (4.5-8.0) Urine Specific [place] 1.015 (1.005-1.035) Urine Protein 4+ (NEGATIVE) H Urine Glucose (UA) 1+ (NEGATIVE) H Urine Ketones 2+ (NEGATIVE) H Urine Blood 5+ (NEGATIVE) H Urine Nitrite Negative (NEGATIVE) Urine Bilirubin 1+ (NEGATIVE) H Urine Ictotest Positive (NEGATIVE) Urine Urobilinogen 1 MG/DL (0.0-1.0) H Urine Leukocyte Esterase 1+ (NEGATIVE) H Urine RBC 15-20 /HPF (0 - 2) H Urine WBC 2-4 /HPF (0 - 2) Urine Squamous Epithelial Cells Occasional /LPF Urine Amorphous Sediment Moderate /LPF (NONE) H Urine Bacteria Few /HPF (NONE) Urine Coarse Granular Casts 5-10 /LPF (NONE) H Urine Random Sodium 27 mmol/L (20-110) Test 01/05/20 20:52 01/06/20 04:00 01/06/20 08:08 POC Whole Blood Glucose Pending White Blood Count 10.0 K/UL (4.8-10.8) # Red Blood Count 3.57 M/UL (4.20-5.40) L Hemoglobin 9.1 G/DL (12.0-16.0) L Hematocrit 29.5 % (37.0-47.0) L Mean Corpuscular Volume 83 FL (80-99) Mean Corpuscular Hemoglobin 25.6 PG (27.0-31.0) L Mean Corpuscular Hemoglobin Concent 31.0 G/DL (32.0-36.0) L Red Cell Distribution Width 16.4 % (11.6-14.8) H Platelet Count 98 K/UL (150-450) L Mean Platelet Volume 7.7 FL (6.5-10.1) Neutrophils (%) (Auto) % (45.0-75.0) Lymphocytes (%) (Auto) % (20.0-45.0) Monocytes (%) (Auto) % (1.0-10.0) Eosinophils (%) (Auto) % (0.0-3.0) Basophils (%) (Auto) % (0.0-2.0) Differential Total Cells Counted 100 Neutrophils % (Manual) 92 % (45-75) H Lymphocytes % (Manual) 5 % (20-45) L Monocytes % (Manual) 3 % (1-10) Eosinophils % (Manual) 0 % (0-3) Basophils % (Manual) 0 % (0-2) Band Neutrophils 0 % (0-8) Platelet Estimate Decreased L Platelet Morphology Normal Hypochromasia 1+ Anisocytosis 1+ Sodium Level 142 MMOL/L (136-145) Potassium Level 3.5 MMOL/L (3.5-5.1) Chloride Level 103 MMOL/L (98-107) Carbon Dioxide Level 28 MMOL/L (21-32) Blood Urea Nitrogen 90 mg/dL (7-18) H Creatinine 2.4 MG/DL (0.55-1.30) H Estimat Glomerular Filtration Rate 19.2 mL/min (>60) Glucose Level 183 MG/DL (74-106) #H Calcium Level 9.4 MG/DL (8.5-10.1) Phosphorus Level 3.7 MG/DL (2.5-4.9) Magnesium Level 2.1 MG/DL (1.8-2.4) Total Bilirubin 0.6 MG/DL (0.2-1.0) Aspartate Amino Transf (AST/SGOT) 1404 U/L (15-37) H Alanine Aminotransferase (ALT/SGPT) 1946 U/L (12-78) H Alkaline Phosphatase 160 U/L (46-116) H Total Creatine Kinase 124 U/L (26-308) Troponin I 2.161 ng/mL (0.000-0.056) C-Reactive Protein, Quantitative 35.4 mg/dL (0.00-0.90) H Pro-B-Type Natriuretic Peptide 83357 pg/mL (0-125) H Total Protein 5.9 G/DL (6.4-8.2) L Albumin 2.5 G/DL (3.4-5.0) L Globulin 3.4 g/dL Albumin/Globulin Ratio 0.7 (1.0-2.7) L Thyroid Stimulating Hormone (TSH) 1.288 uiU/mL (0.358-3.740) Free Thyroxine 1.40 NG/DL (0.76-1.46) Free Triiodothyronine 0.6 pg/mL (2.3-4.2) L Digoxin Level 0.3 NG/ML (0.9-2.0) L Gamma Glutamyl Transpeptidase 43 U/L (5-85) Ann-Marie Graves MD Jan 06, 2020 09:51
--- NOTE | 2020-01-06 10:49 | NUR ---
RADIOLOGY DEPT., CHEST X-RAY DONE.-P.D
--- NOTE | 2020-01-06 11:08 | Infectious Diseases Prog Note ---
Assessment/Plan Assessment: Asystole arrest Sepsis COVID19 pneumonia Acute hypoxic resp failure sp NRB> Bipap 100% Fio2> VDRF 100% -01/01 CXR: Vascular congestion/developing failure and bilateral patchy infiltrates, slightly worse since prior exam. Small bilateral pleural effusions.Prominent mediastinum likely due to tortuous/ectatic thoracic aorta. -12/31 CXR: Centrally predominant interstitial and airspace opacities, pulmonary edema most likely. Cardiomegaly. Fever; SP No leukocytosis Dm2 COPD HTN former smoker CAD CHF RA GERD hypothyroidism Afib [place] resident ([facility]) Plan: -Continue Ceftriaxone #6 -Decadron #6/10 -Cont Remdesivir #4/[address] [facility] criteria- patient cannot provide consent; Benefits outweigh risks. -12/31 SP Cefepime x1, Flagyl x1 -f/u cx -Monitor CBC/CMP, temperatures -ETT/ICU care Thank you for consulting [facility]. Will continue to follow along with you. Discussed wit RN and pharmacy staff. Subjective Allergies: Coded Allergies: DOXYCYCLINE (Verified Allergy, Unknown, 04/04/19) RIFAMPIN (Verified Allergy, Unknown, 04/04/19) Afebrile On Vent 70% O2 No Leukocytosis Objective Last 24 Hour Vital Signs Date Time Temp Pulse Resp B/P (MAP) Pulse Ox O2 Delivery O2 Flow Rate FiO2 01/06/20 11:04 108 16 70 01/06/20 10:00 117 18 114/69 (84) 96 01/06/20 09:00 118 20 132/68 (89) 96 01/06/20 08:00 Mechanical Ventilator 01/06/20 08:00 70 01/06/20 08:00 98.7 111 18 114/66 (82) 96 01/06/20 07:38 101 01/06/20 07:29 116 20 70 01/06/20 07:00 110 20 131/68 (89) 96 01/06/20 06:00 117 20 144/67 (92) 95 01/06/20 05:00 110 18 113/71 (85) 93 01/06/20 04:00 99.2 105 18 120/80 (93) 95 01/06/20 04:00 70 01/06/20 04:00 Mechanical Ventilator 01/06/20 04:00 106 9/24/20 03:17 101 16 70 01/06/20 03:00 103 17 131/73 (92) 93 01/06/20 02:00 100 16 124/72 (89) 96 01/06/20 01:00 100 16 102/55 (71) 96 01/06/20 00:00 70 01/06/20 00:00 Mechanical Ventilator 01/06/20 00:00 100 01/06/20 00:00 98.8 98 16 110/70 (83) 96 01/05/20 23:07 102 16 80 01/05/20 23:00 95 16 92/51 (65) 96 01/05/20 22:00 99.4 111 16 120/66 (84) 97 01/05/20 21:00 121 19 129/75 (93) 97 01/05/20 20:00 80 01/05/20 20:00 100.9 122 18 128/76 (93) 93 01/05/20 20:00 127 01/05/20 20:00 Mechanical Ventilator 01/05/20 19:25 12 17 60 01/05/20 19:00 117 16 109/39 (62) 93 01/05/20 18:30 115 16 104/50 (68) 92 01/05/20 18:00 115 16 108/40 (62) 92 01/05/20 17:30 117 16 110/51 (70) 92 01/05/20 17:00 117 16 116/46 (69) 93 01/05/20 16:30 114 18 119/63 (81) 93 01/05/20 16:00 Mechanical Ventilator 01/05/20 16:00 118 01/05/20 16:00 100.2 115 17 109/44 (65) 90 01/05/20 16:00 60 01/05/20 15:30 111 16 105/48 (67) 96 01/05/20 15:26 111 16 60 01/05/20 15:00 112 17 112/48 (69) 95 01/05/20 14:30 112 16 119/79 (92) 92 01/05/20 14:15 16 119/54 (75) 92 01/05/20 14:00 97 16 128/45 (72) 93 01/05/20 14:00 16 128/45 (72) 93 01/05/20 13:45 16 111/53 (72) 93 01/05/20 13:30 95 16 109/47 (67) 94 01/05/20 13:30 16 109/47 (67) 94 01/05/20 13:15 16 120/50 (73) 100 01/05/20 13:00 87 16 111/50 (70) 100 01/05/20 13:00 16 111/50 (70) 100 01/05/20 12:45 16 104/50 (68) 100 01/05/20 12:30 16 108/41 (63) 100 01/05/20 12:30 88 16 108/41 (63) 100 01/05/20 12:15 16 101/43 (62) 100 01/05/20 12:00 92 01/05/20 12:00 16 102/46 (64) 99 01/05/20 12:00 98.9 94 16 102/46 (64) 99 01/05/20 12:00 100 01/05/20 12:00 Mechanical Ventilator 01/05/20 11:45 16 84/40 (55) 99 01/05/20 11:30 93 15 90/40 (57) 98 01/05/20 11:30 15 90/40 (57) 98 01/05/20 11:15 16 88/36 (53) 98 Height (Feet): 5 Height (Inches): 2.00 Weight (Pounds): 155 GENERAL: On Vent 70%, Somnolent HEENT: NCAT, MMM LUNGS: Equal rise and fall of chest B/L no accessory muscle use ABDOMEN: Soft, nondistended EXTREMITIES: No cyanosis, clubbing, or edema. Laboratory Tests Test 01/05/20 13:03 01/05/20 13:43 01/05/20 16:25 01/05/20 18:00 Arterial Blood pH 7.496 (7.350-7.450) Arterial Blood Partial Pressure CO2 34.6 mmHg (35.0-45.0) L Arterial Blood Partial Pressure O2 196.5 mmHg (75.0-100.0) H Arterial Blood HCO3 26.1 mmol/L (22.0-26.0) H Arterial Blood Oxygen Saturation 99.1 % (95-100) Arterial Blood Base Excess 2.9 (-2-2) H [place] Test Positive POC Whole Blood Glucose 300 MG/DL (74-106) H Sodium Level 148 MMOL/L (136-145) H Potassium Level 3.0 MMOL/L (3.5-5.1) L Chloride Level 107 MMOL/L (98-107) Carbon Dioxide Level 30 MMOL/L (21-32) Anion Gap 11 mmol/L (5-15) Blood Urea Nitrogen 89 mg/dL (7-18) H Creatinine 1.9 MG/DL (0.55-1.30) H Estimat Glomerular Filtration Rate 25.2 mL/min (>60) Glucose Level 291 MG/DL (74-106) #H Uric Acid 13.1 MG/DL (2.6-7.2) H Calcium Level 9.5 MG/DL (8.5-10.1) Phosphorus Level 1.8 MG/DL (2.5-4.9) L Magnesium Level 2.2 MG/DL (1.8-2.4) Total Bilirubin 0.5 MG/DL (0.2-1.0) Aspartate Amino Transf (AST/SGOT) 8330 U/L (15-37) H Alanine Aminotransferase (ALT/SGPT) 2264 U/L (12-78) H Alkaline Phosphatase 149 U/L (46-116) H Troponin I 0.113 ng/mL (0.000-0.056) Total Protein 5.6 G/DL (6.4-8.2) L Albumin 2.0 G/DL (3.4-5.0) L Globulin 3.6 g/dL Albumin/Globulin Ratio 0.6 (1.0-2.7) L Urine Color Brown Urine Appearance Cloudy Urine pH 5 (4.5-8.0) Urine Specific [place] 1.015 (1.005-1.035) Urine Protein 4+ (NEGATIVE) H Urine Glucose (UA) 1+ (NEGATIVE) H Urine Ketones 2+ (NEGATIVE) H Urine Blood 5+ (NEGATIVE) H Urine Nitrite Negative (NEGATIVE) Urine Bilirubin 1+ (NEGATIVE) H Urine Ictotest Positive (NEGATIVE) Urine Urobilinogen 1 MG/DL (0.0-1.0) H Urine Leukocyte Esterase 1+ (NEGATIVE) H Urine RBC 15-20 /HPF (0 - 2) H Urine WBC 2-4 /HPF (0 - 2) Urine Squamous Epithelial Cells Occasional /LPF Urine Amorphous Sediment Moderate /LPF (NONE) H Urine Bacteria Few /HPF (NONE) Urine Coarse Granular Casts 5-10 /LPF (NONE) H Urine Random Sodium 27 mmol/L (20-110) Test 01/05/20 20:52 01/06/20 04:00 01/06/20 08:08 POC Whole Blood Glucose Pending White Blood Count 10.0 K/UL (4.8-10.8) # Red Blood Count 3.57 M/UL (4.20-5.40) L Hemoglobin 9.1 G/DL (12.0-16.0) L Hematocrit 29.5 % (37.0-47.0) L Mean Corpuscular Volume 83 FL (80-99) Mean Corpuscular Hemoglobin 25.6 PG (27.0-31.0) L Mean Corpuscular Hemoglobin Concent 31.0 G/DL (32.0-36.0) L Red Cell Distribution Width 16.4 % (11.6-14.8) H Platelet Count 98 K/UL (150-450) L Mean Platelet Volume 7.7 FL (6.5-10.1) Neutrophils (%) (Auto) % (45.0-75.0) Lymphocytes (%) (Auto) % (20.0-45.0) Monocytes (%) (Auto) % (1.0-10.0) Eosinophils (%) (Auto) % (0.0-3.0) Basophils (%) (Auto) % (0.0-2.0) Differential Total Cells Counted 100 Neutrophils % (Manual) 92 % (45-75) H Lymphocytes % (Manual) 5 % (20-45) L Monocytes % (Manual) 3 % (1-10) Eosinophils % (Manual) 0 % (0-3) Basophils % (Manual) 0 % (0-2) Band Neutrophils 0 % (0-8) Platelet Estimate Decreased L Platelet Morphology Normal Hypochromasia 1+ Anisocytosis 1+ Sodium Level 142 MMOL/L (136-145) Potassium Level 3.5 MMOL/L (3.5-5.1) Chloride Level 103 MMOL/L (98-107) Carbon Dioxide Level 28 MMOL/L (21-32) Blood Urea Nitrogen 90 mg/dL (7-18) H Creatinine 2.4 MG/DL (0.55-1.30) H Estimat Glomerular Filtration Rate 19.2 mL/min (>60) Glucose Level 183 MG/DL (74-106) #H Calcium Level 9.4 MG/DL (8.5-10.1) Phosphorus Level 3.7 MG/DL (2.5-4.9) Magnesium Level 2.1 MG/DL (1.8-2.4) Total Bilirubin 0.6 MG/DL (0.2-1.0) Aspartate Amino Transf (AST/SGOT) 1404 U/L (15-37) H Alanine Aminotransferase (ALT/SGPT) 1946 U/L (12-78) H Alkaline Phosphatase 160 U/L (46-116) H Total Creatine Kinase 124 U/L (26-308) Troponin I 2.161 ng/mL (0.000-0.056) C-Reactive Protein, Quantitative 35.4 mg/dL (0.00-0.90) H Pro-B-Type Natriuretic Peptide 86119 pg/mL (0-125) H Total Protein 5.9 G/DL (6.4-8.2) L Albumin 2.5 G/DL (3.4-5.0) L Globulin 3.4 g/dL Albumin/Globulin Ratio 0.7 (1.0-2.7) L Thyroid Stimulating Hormone (TSH) 1.288 uiU/mL (0.358-3.740) Free Thyroxine 1.40 NG/DL (0.76-1.46) Free Triiodothyronine 0.6 pg/mL (2.3-4.2) L Digoxin Level 0.3 NG/ML (0.9-2.0) L Gamma Glutamyl Transpeptidase 43 U/L (5-85) Current Medications Medications (Trade) Dose Ordered Sig/Brett Route PRN Reason Start Time Stop Time Status Last Admin Dose Admin Acetaminophen (Tylenol) 650 mg Q4H PRN ORAL FEVER 01/01/20 07:00 01/31/20 06:59 01/02/20 05:20 Acetaminophen (Tylenol) 650 mg Q4H PRN RECTAL Temp >100.5 01/03/20 09:30 02/02/20 09:29 01/03/20 12:18 Albuterol/ Ipratropium (Combivent Respimat) 1 puff Q4H PRN INH Shortness of Breath 01/05/20 20:00 02/04/20 19:59 Ceftriaxone Sodium 1 gm/ Sodium Chloride 55 ml @ 110 mls/hr Q24H IVPB 01/07/20 09:00 01/08/20 08:59 Dexamethasone (Decadron) 4 mg DAILY ORAL 01/01/20 09:00 01/11/20 10:00 01/06/20 08:06 Dextrose (Dextrose 50%) 25 ml Q30M PRN IV Hypoglycemia 01/01/20 08:45 03/31/20 08:44 Dextrose (Dextrose 50%) 50 ml Q30M PRN IV Hypoglycemia 01/01/20 08:45 03/31/20 08:44 Diltiazem HCl (Cardizem) 15 mg Q12H PRN IVP For High Blood Pressure 01/03/20 07:00 02/02/20 06:59 Heparin Sodium (Porcine) (Heparin 5000 units/ml) 5,000 units EVERY 12 HOURS SUBQ 01/01/20 09:00 02/15/20 08:59 01/05/20 20:26 Insulin Aspart (NovoLOG) BEFORE MEALS AND HS SUBQ 01/01/20 11:30 03/31/20 11:29 01/06/20 05:48 Lorazepam (Ativan 2mg/ml 1ml) 2 mg Q4H PRN IV For Anxiety 01/05/20 08:45 01/12/20 08:44 Ondansetron HCl (Zofran) 4 mg Q6H PRN IVP Nausea & Vomiting 01/01/20 07:00 01/31/20 06:59 Pantoprazole (Protonix) 40 mg Q12HR IV 01/05/20 21:00 02/04/20 08:59 01/06/20 08:07 Sodium Chloride 1,000 ml @ 150 mls/hr Q6H40M IV 01/06/20 08:15 02/05/20 08:14 01/06/20 08:52 Mehrdad Yepez MD Jan 06, 2020 11:08
--- NOTE | 2020-01-06 12:00 | NUR ---
NURSE NOTES: Patient is resting in bed, A. fib on the heart monitor. Patient responds to light pain, she is afebrile. Oral care provided, endotracheal suctioning done, no sputum excreted.
--- NOTE | 2020-01-06 13:15 | Diagnostic Imaging Report ---
Indication: Dyspnea Technique: One view of the chest Comparison: 01/05/2020 Findings: Endotracheal tube, orogastric tube, left subclavian central venous catheter are again demonstrated. Bilateral infiltrates are unchanged. Impression: Unchanged, over one day, findings as above.
--- NOTE | 2020-01-06 13:21 | NUR ---
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 Per chart review, pt presented as A&O1x. Pt is from [facility]. SW spoke w/ pt's cousin, Laly Ritchie [phone], confirmed she is the primary supervising floorperson. Laly shares that her AD wish in 2017 was comfort measures only. Pt signed POLST for full code in August 2019. Per Laly, pt was alert and oriented when she signed the POLST. Pt will remain full code according to her latest document. MARIA D received the the copy of AD/POA. The healthcare agents are: Lalyraúl Ritchie [phone], Lon Vasquez [phone], Naun Torres [phone], Sandy Torres [phone]. No other concern/needs at this time. MARIA D placed the copy of AD/POA in the chart.
--- NOTE | 2020-01-06 13:53 | Cardiology Report ---
APPROVED REPORT EKG Measurement Heart [id number] <Conclusion> Atrial fibrillation with rapid ventricular response with premature ventricular or aberrantly conducted complexes Abnormal ECG
--- NOTE | 2020-01-06 13:59 | Cardiology Report ---
APPROVED REPORT EKG Measurement Heart [id number] <Conclusion> Sinus rhythm with sinus arrhythmia with occasional premature ventricular complexes Rightward axis Anterior infarct, age undetermined Artifact limits interpretation Abnormal ECG
--- NOTE | 2020-01-06 14:27 | Consultation ---
History of Present Illness General Date patient seen: Jan 06, 2020 Chief Complaint: Dyspnea/Respdistress Present Illness HPI This is a very unfortunate 85-year-old female [facility] who is a care facility patient that presented with desaturation respiratory insufficiency was admitted further care management desaturated deconditioned cardiovascular compromise intubated and in the intensive care unit on support recently hypotensive and a left subclavian central his catheter was inserted. After insertion. Chest x-ray identified in appropriate positioning without complication. Line placed.complication. Hemoglobin from 11 to 9. Surgery called to evaluate and assist with care and management and line management. Patient seen, patient evaluate, chart reviewed. Repeat x-ray reviewed. Allergies: Coded Allergies: DOXYCYCLINE (Verified Allergy, Unknown, 04/04/19) RIFAMPIN (Verified Allergy, Unknown, 04/04/19) Medication History Scheduled Acetaminophen (Acetaminophen), 650 MG ORAL Q4H, (Reported) Acetazolamide (Acetazolamide), 250 MG ORAL DAILY, (Reported) Ascorbic Acid* (Ascorbic Acid*), 500 MG ORAL THREE TIMES A DAY, (Reported) Aspirin* (Aspirin*), 81 MG ORAL DAILY, (Reported) Atorvastatin Calcium* (Atorvastatin Calcium*), 80 MG ORAL BEDTIME, (Reported) Azithromycin (Azithromycin), 500 MG ORAL DAILY, (Reported) Baclofen* (Baclofen*), 10 MG ORAL THREE TIMES A DAY, (Reported) Digoxin* (Digoxin*), 125 MCG ORAL DAILY, (Reported) Diltiazem HCl (Diltiazem 12Hr ER), 60 MG ORAL EVERY 12 HOURS, (Reported) Docusate Sodium* (Docusate Sodium*), 100 MG ORAL TWICE A DAY, (Reported) Famotidine* (Pepcid 20mg tablet*), 20 MG ORAL DAILY, (Reported) Ferrous Sulfate (Ferrousul), 3,000 MG PO 3 times a day, (Reported) Hydralazine Hcl* (Hydralazine Hcl*), 25 MG ORAL EVERY 8 HOURS, (Reported) Insulin Glargine (Lantus), 5 SUBQ Q12HR, (Reported) Levothyroxine Sodium (Synthroid), 150 MCG ORAL DAILY, (Reported) Levothyroxine Sodium* (Levothyroxine Sodium*), 200 MCG ORAL DAILY, (Reported) Multivitamin With Minerals (Multivitamins With Minerals*), 1 TAB ORAL DAILY, (Reported) Pantoprazole (Pantoprazole), 40 MG ORAL DAILY, (Reported) Spironolact/Hydrochlorothiazid (Aldactazide 25-25 Tablet), 1 TAB ORAL DAILY, (Reported) Zinc Sulfate (Zinc-220*), 220 MG ORAL DAILY, (Reported) Scheduled PRN Hydrocodone/Acetaminophen 5-325* (Hydrocodone/Acetaminophen 5-325*), 1 TAB ORAL Q6H PRN for For Pain, (Reported) Ipratropium [place] 0.5MG/2.5ML (Ipratropium [place] 0.5MG/2.5ML), 0.5 MG HHN Q6H PRN for Shortness of Breath, (Reported) Polyethylene Glycol 3350* (Polyethylene Glycol 3350*), 17 GM ORAL BEDTIME PRN for Constipation, (Reported) Miscellaneous Medications Budesonide (Budesonide), 0.5 MG IH, (Reported) Chlorhexidine Gluconate (Peridex), 15 ML MM, (Reported) Cholecalciferol (Vitamin D3) (Vitamin D-3), 1,000 UNIT PO, (Reported) Potassium Chloride (Potassium Chloride), 10 MEQ PO, (Reported) Prednisolone* (Prelone*), 20 MG ORAL, (Reported) Prednisone (Prednisone), 30 MG PO, (Reported) Sennosides (Senna), 8.6 MG PO, (Reported) Patient History Limited by: medical condition History Provided By: Medical Record, PMD Healthcare decision maker Resuscitation status Advanced Directive on File Past Medical/Surgical History Past Medical/Surgical History: (1) Acute on chronic systolic (congestive) heart failure (2) CO2 retention (3) BORIS (acute kidney injury) (4) Shock liver (5) Atrial fibrillation (6) Diabetes mellitus (7) CHF (congestive heart failure) (8) Hypothyroidism (9) Chronic respiratory failure (10) History of hypertension (11) 2019 novel coronavirus detected Review of Systems All Other Systems: negative except mentioned in HPI ROS Narrative Patient unable to provide history or meaningful examination at this time given medical condition intubated's with decreased level consciousness in the intensive care unit Physical Exam General Appearance: lethargic, mild distress Lines, tubes and drains: central line, mo cath HEENT: normocephalic, atraumatic, anicteric, mucous membranes moist Neck: supple, normal inspection Respiratory/Chest: no respiratory distress, no accessory muscle use, decreased breath sounds, on vent Cardiovascular/Chest: normal peripheral pulses, normal rate Abdomen: non tender, soft, no organomegaly, no mass Extremities: normal capillary refill, non-pitting Skin Exam: warm/dry Neurologic: unresponsiveness Last 24 Hour Vital Signs Date Time Temp Pulse Resp B/P (MAP) Pulse Ox O2 Delivery O2 Flow Rate FiO2 01/06/20 13:00 120 17 123/57 (79) 96 01/06/20 12:00 70 01/06/20 12:00 Mechanical Ventilator 01/06/20 12:00 99.1 115 17 127/68 (87) 96 01/06/20 11:23 127 01/06/20 11:04 108 16 70 01/06/20 11:00 115 17 122/70 (87) 95 01/06/20 10:00 117 18 114/69 (84) 96 01/06/20 09:00 118 20 132/68 (89) 96 01/06/20 08:00 Mechanical Ventilator 01/06/20 08:00 70 01/06/20 08:00 98.7 111 18 114/66 (82) 96 01/06/20 07:38 101 01/06/20 07:29 116 20 70 01/06/20 07:00 110 20 131/68 (89) 96 01/06/20 06:00 117 20 144/67 (92) 95 01/06/20 05:00 110 18 113/71 (85) 93 01/06/20 04:00 99.2 105 18 120/80 (93) 95 01/06/20 04:00 70 01/06/20 04:00 Mechanical Ventilator 01/06/20 04:00 106 01/06/20 03:17 101 16 70 01/06/20 03:00 103 17 131/73 (92) 93 01/06/20 02:00 100 16 124/72 (89) 96 01/06/20 01:00 100 16 102/55 (71) 96 01/06/20 00:00 70 01/06/20 00:00 Mechanical Ventilator 01/06/20 00:00 100 01/06/20 00:00 98.8 98 16 110/70 (83) 96 01/05/20 23:07 102 16 80 01/05/20 23:00 95 16 92/51 (65) 96 01/05/20 22:00 99.4 111 16 120/66 (84) 97 01/05/20 21:00 121 19 129/75 (93) 97 01/05/20 20:00 80 01/05/20 20:00 100.9 122 18 128/76 (93) 93 01/05/20 20:00 127 01/05/20 20:00 Mechanical Ventilator 01/05/20 19:25 12 17 60 01/05/20 19:00 117 16 109/39 (62) 93 01/05/20 18:30 115 16 104/50 (68) 92 01/05/20 18:00 115 16 108/40 (62) 92 01/05/20 17:30 117 16 110/51 (70) 92 01/05/20 17:00 117 16 116/46 (69) 93 01/05/20 16:30 114 18 119/63 (81) 93 01/05/20 16:00 Mechanical Ventilator 01/05/20 16:00 118 01/05/20 16:00 100.2 115 17 109/44 (65) 90 01/05/20 16:00 60 01/05/20 15:30 111 16 105/48 (67) 96 01/05/20 15:26 111 16 60 01/05/20 15:00 112 17 112/48 (69) 95 01/05/20 14:30 112 16 119/79 (92) 92 Intake and Output 01/05/20 01/06/20 19:00 07:00 Intake Total 1985.42426 ml 1619 ml Output Total 190 ml 70 ml Balance 1795.52021 ml 1549 ml Free Water 50 ml IV Total 1985.17232 ml 1569 ml Output Urine Total 190 ml 70 ml # Bowel Movements 2 Laboratory Tests Test 01/05/20 16:25 01/05/20 18:00 01/05/20 20:52 01/06/20 04:00 Sodium Level 148 MMOL/L (136-145) H 142 MMOL/L (136-145) Potassium Level 3.0 MMOL/L (3.5-5.1) L 3.5 MMOL/L (3.5-5.1) Chloride Level 107 MMOL/L (98-107) 103 MMOL/L (98-107) Carbon Dioxide Level 30 MMOL/L (21-32) 28 MMOL/L (21-32) Anion Gap 11 mmol/L (5-15) Blood Urea Nitrogen 89 mg/dL (7-18) H 90 mg/dL (7-18) H Creatinine 1.9 MG/DL (0.55-1.30) H 2.4 MG/DL (0.55-1.30) H Estimat Glomerular Filtration Rate 25.2 mL/min (>60) 19.2 mL/min (>60) Glucose Level 291 MG/DL (74-106) #H 183 MG/DL (74-106) #H Uric Acid 13.1 MG/DL (2.6-7.2) H Calcium Level 9.5 MG/DL (8.5-10.1) 9.4 MG/DL (8.5-10.1) Phosphorus Level 1.8 MG/DL (2.5-4.9) L 3.7 MG/DL (2.5-4.9) Magnesium Level 2.2 MG/DL (1.8-2.4) 2.1 MG/DL (1.8-2.4) Total Bilirubin 0.5 MG/DL (0.2-1.0) 0.6 MG/DL (0.2-1.0) Aspartate Amino Transf (AST/SGOT) 8330 U/L (15-37) H 1404 U/L (15-37) H Alanine Aminotransferase (ALT/SGPT) 2264 U/L (12-78) H 1946 U/L (12-78) H Alkaline Phosphatase 149 U/L (46-116) H 160 U/L (46-116) H Troponin I 0.113 ng/mL (0.000-0.056) 2.161 ng/mL (0.000-0.056) Total Protein 5.6 G/DL (6.4-8.2) L 5.9 G/DL (6.4-8.2) L Albumin 2.0 G/DL (3.4-5.0) L 2.5 G/DL (3.4-5.0) L Globulin 3.6 g/dL 3.4 g/dL Albumin/Globulin Ratio 0.6 (1.0-2.7) L 0.7 (1.0-2.7) L Urine Color Brown Urine Appearance Cloudy Urine pH 5 (4.5-8.0) Urine Specific [place] 1.015 (1.005-1.035) Urine Protein 4+ (NEGATIVE) H Urine Glucose (UA) 1+ (NEGATIVE) H Urine Ketones 2+ (NEGATIVE) H Urine Blood 5+ (NEGATIVE) H Urine Nitrite Negative (NEGATIVE) Urine Bilirubin 1+ (NEGATIVE) H Urine Ictotest Positive (NEGATIVE) Urine Urobilinogen 1 MG/DL (0.0-1.0) H Urine Leukocyte Esterase 1+ (NEGATIVE) H Urine RBC 15-20 /HPF (0 - 2) H Urine WBC 2-4 /HPF (0 - 2) Urine Squamous Epithelial Cells Occasional /LPF Urine Amorphous Sediment Moderate /LPF (NONE) H Urine Bacteria Few /HPF (NONE) Urine Coarse Granular Casts 5-10 /LPF (NONE) H Urine Random Sodium 27 mmol/L (20-110) POC Whole Blood Glucose Pending White Blood Count 10.0 K/UL (4.8-10.8) # Red Blood Count 3.57 M/UL (4.20-5.40) L Hemoglobin 9.1 G/DL (12.0-16.0) L Hematocrit 29.5 % (37.0-47.0) L Mean Corpuscular Volume 83 FL (80-99) Mean Corpuscular Hemoglobin 25.6 PG (27.0-31.0) L Mean Corpuscular Hemoglobin Concent 31.0 G/DL (32.0-36.0) L Red Cell Distribution Width 16.4 % (11.6-14.8) H Platelet Count 98 K/UL (150-450) L Mean Platelet Volume 7.7 FL (6.5-10.1) Neutrophils (%) (Auto) % (45.0-75.0) Lymphocytes (%) (Auto) % (20.0-45.0) Monocytes (%) (Auto) % (1.0-10.0) Eosinophils (%) (Auto) % (0.0-3.0) Basophils (%) (Auto) % (0.0-2.0) Differential Total Cells Counted 100 Neutrophils % (Manual) 92 % (45-75) H Lymphocytes % (Manual) 5 % (20-45) L Monocytes % (Manual) 3 % (1-10) Eosinophils % (Manual) 0 % (0-3) Basophils % (Manual) 0 % (0-2) Band Neutrophils 0 % (0-8) Platelet Estimate Decreased L Platelet Morphology Normal Hypochromasia 1+ Anisocytosis 1+ Total Creatine Kinase 124 U/L (26-308) C-Reactive Protein, Quantitative 35.4 mg/dL (0.00-0.90) H Pro-B-Type Natriuretic Peptide 71064 pg/mL (0-125) H Thyroid Stimulating Hormone (TSH) 1.288 uiU/mL (0.358-3.740) Free Thyroxine 1.40 NG/DL (0.76-1.46) Free Triiodothyronine 0.6 pg/mL (2.3-4.2) L Digoxin Level 0.3 NG/ML (0.9-2.0) L Test 01/06/20 08:08 Gamma Glutamyl Transpeptidase 43 U/L (5-85) Height (Feet): 5 Height (Inches): 2.00 Weight (Pounds): 155 Medications Current Medications Medications (Trade) Dose Ordered Sig/Brett Route PRN Reason Start Time Stop Time Status Last Admin Dose Admin Acetaminophen (Tylenol) 650 mg Q4H PRN ORAL FEVER 01/01/20 07:00 01/31/20 06:59 01/02/20 05:20 Acetaminophen (Tylenol) 650 mg Q4H PRN RECTAL Temp >100.5 01/03/20 09:30 02/02/20 09:29 01/03/20 12:18 Albuterol/ Ipratropium (Combivent Respimat) 1 puff Q4H PRN INH Shortness of Breath 01/05/20 20:00 02/04/20 19:59 Ceftriaxone Sodium 1 gm/ Sodium Chloride 55 ml @ 110 mls/hr Q24H IVPB 01/07/20 09:00 01/08/20 08:59 Dexamethasone (Decadron) 4 mg DAILY ORAL 01/01/20 09:00 01/11/20 10:00 01/06/20 08:06 Dextrose (Dextrose 50%) 25 ml Q30M PRN IV Hypoglycemia 01/01/20 08:45 03/31/20 08:44 Dextrose (Dextrose 50%) 50 ml Q30M PRN IV Hypoglycemia 01/01/20 08:45 03/31/20 08:44 Diltiazem HCl (Cardizem) 15 mg Q12H PRN IVP For High Blood Pressure 01/03/20 07:00 02/02/20 06:59 Heparin Sodium (Porcine) (Heparin 5000 units/ml) 5,000 units EVERY 12 HOURS SUBQ 01/01/20 09:00 02/15/20 08:59 01/05/20 20:26 Insulin Aspart (NovoLOG) BEFORE MEALS AND HS SUBQ 01/01/20 11:30 03/31/20 11:29 01/06/20 05:48 Lorazepam (Ativan 2mg/ml 1ml) 2 mg Q4H PRN IV For Anxiety 01/05/20 08:45 01/12/20 08:44 Ondansetron HCl (Zofran) 4 mg Q6H PRN IVP Nausea & Vomiting 01/01/20 07:00 01/31/20 06:59 Pantoprazole (Protonix) 40 mg Q12HR IV 01/05/20 21:00 02/04/20 08:59 01/06/20 08:07 Sodium Chloride 1,000 ml @ 150 mls/hr Q6H40M IV 01/06/20 08:15 02/05/20 08:14 01/06/20 08:52 Assessment/Plan Problem List: (1) Acute on chronic systolic (congestive) heart failure ICD Codes: I50.23 - Acute on chronic systolic (congestive) heart failure SNOMED: 091879412, 243610795 (2) CO2 retention ICD Codes: E87.2 - Acidosis SNOMED: 98450467 (3) BORIS (acute kidney injury) ICD Codes: N17.9 - Acute kidney failure, unspecified SNOMED: 0342890, 74640274 (4) Shock liver Assessment & Plan: Hypotensive septic acute elevation in LFTs AST ALT thousands alk phos elevated. Likely shock from hypotension and acute episode. Labs trending down. IV fluid hydration. No acute intervention. Hold on imaging. Line reviewed. No bleeding noted. All 3 ports functional. Chest x-ray reviewed. Drop in hemoglobin unlikely related to line. Will monitor. Trend labs. Transfuse PRN. And are improvement in position of previously malpositioned endotracheal tube, tip now projecting 1-2 cm above the garrett. Interim placement of an orogastric tube, tip of which projects beyond the edge of the image, presumably well within the stomach. Interim placement of a left subclavian central venous catheter, tip of which projects at the level of the innominate venous confluence. No pneumothorax. Bilateral infiltrates are again demonstrated, unchanged. Impression: Improved and now satisfactory position of endotracheal tube Interim left subclavian central venous catheter placement, no radiographically evident complication Interim orogastric intubation, apparently satisfactory Unchanged bilateral infiltrates ICD Codes: K72.00 - Acute and subacute hepatic failure without coma SNOMED: 388608248 (5) Atrial fibrillation ICD Codes: I48.91 - Unspecified atrial fibrillation SNOMED: 12371324, 463146099 (6) Diabetes mellitus ICD Codes: E11.9 - Type 2 diabetes mellitus without complications SNOMED: 04089918 (7) CHF (congestive heart failure) ICD Codes: I50.9 - Heart failure, unspecified SNOMED: 13945702, 999318269 (8) Hypothyroidism ICD Codes: E03.9 - Hypothyroidism, unspecified SNOMED: 98973323 (9) Chronic respiratory failure Assessment & Plan: Intubated intensive care unit weaning vent. ET tube in place. Chest x-ray reviewed. ICD Codes: J96.10 - Chronic respiratory failure, unspecified whether with hypoxia or hypercapnia SNOMED: 84391829, 465889742 (10) History of hypertension ICD Codes: Z86.79 - Personal history of other diseases of the circulatory system SNOMED: 532881253 (11) 2018 novel coronavirus detected Assessment & Plan: COVID positive as per ID and pulmonology appreciate input and care. Continue vent support wean as tolerated. ICD Codes: U07.1 - COVID-19 SNOMED: 583011390, 548540074 Satinder Olivera Jan 06, 2020 14:27
--- NOTE | 2020-01-06 14:33 | Cardiology Report ---
APPROVED REPORT EXAM: Two-dimensional and M-mode echocardiogram with Doppler and color Doppler. INDICATION Left ventricular function M-Mode DIMENSIONS IVSd0.9 (0.7-1.1cm)Left Atrium (MM)4.4 (1.6-4.0cm) LVDd4.8 (3.5-5.6cm)Aortic Root3.0 (2.0-3.7cm) PWd1.1 (0.7-1.1cm)Aortic Cusp Exc.1.8 (1.5-2.0cm) IVSs1.6 cmEPSS0.6 (>1.0cm) LVDs3.0 (2.5-4.0cm) PWs1.5 cm <Conclusion> Technically difficult study due to poor acoustic windows. Study quality precludes accurate assessment of regional wall motion. Normal left ventricular chamber size, systolic function and wall motion. Left ventricular ejection fraction estimated to be 65 %. No evidence of left ventricular hypertrophy. Anterior Echo-free space, may be due to pericardial fat or effusion. Mild left atrial enlargement. Right cardiac chamber sizes are within normal limits. Focal aortic valve sclerosis with adequate cusp excursion. Thickened mitral valve leaflets with normal excursion. Mild mitral annulus and aortic root calcification. Pulmonic valve not well visualized. Normal tricuspid valve structure. IVC dilated at 2.5 cm without physiological collapse, suggestive of increased RA pressure. A color flow and spectral Doppler study was performed and revealed: Trace regurgitation. Trace mitral regurgitation. Mitral diastolic velocities suggest mild left ventricular diastolic dysfunction (Grade I). Moderate tricuspid regurgitation. Tricuspid systolic velocities suggests peak right ventricular systolic pressure of 96 mmHg, consistent with severe pulmonary hypertension. No pulmonic regurgitation present.
--- NOTE | 2020-01-06 14:57 | NUR ---
NURSE NOTES: Patient remains in a comatose state, reacts to light pain, pupils are sluggish. Urine output is poor, 0ml/hr to 10ml/hr.
--- NOTE | 2020-01-06 15:01 | NUR ---
CASE MANAGEMENT: REVIEW 01/06/20 SI: HYPOXIA . COVID-19 . PNA . THROMBOCYTOPENIA . 99.1 115 17 127/68 96% MECH VENT FIO2 70% H/H 9.1/29.5 PLT 98 BNP 73044 BUN/CREAT 90/2.4 AST/ALT 1404/1946 ALB 2.5 DIG 0.3 ABG: PH 7.496 PCO2 34.6 PO2 196.5 HCO3 26.1 TROPONIN 2.161 IS: IV ALBUMIN HUMAN X1 IV ROCEPHIN QD IV NS @150ML/HR IV DECADRON Q24HR LASIX IV QD CEFTRIAXONE IV Q24HR DECADRON PO QD CHEST [id number] tube, orogastric tube, left subclavian central venous catheter are again demonstrated. Bilateral infiltrates are unchanged. TRANSFERRED TO ICU TODAY Interim left subclavian central venous catheter ICU STATUS DCP: PATIENT IS FROM [facility]
--- NOTE | 2020-01-06 16:46 | NUR ---
NURSE NOTES: Bed bath given to patient, turned and repositioned. Patient remains in comatose, responds to deep pain. Will continue to monitor.
--- NOTE | 2020-01-06 17:34 | Internal Med Progress Note ---
Subjective Date of Service: Jan 06, 2020 Physician Name GinHarris Attending Physician Fernando Peguero MD Current Medications Medications (Trade) Dose Ordered Sig/Brett Route PRN Reason Start Time Stop Time Status Last Admin Dose Admin Acetaminophen (Tylenol) 650 mg Q4H PRN ORAL FEVER 01/01/20 07:00 01/31/20 06:59 01/02/20 05:20 Acetaminophen (Tylenol) 650 mg Q4H PRN RECTAL Temp >100.5 01/03/20 09:30 02/02/20 09:29 01/03/20 12:18 Albuterol/ Ipratropium (Combivent Respimat) 1 puff Q4H PRN INH Shortness of Breath 01/05/20 20:00 02/04/20 19:59 Ceftriaxone Sodium 1 gm/ Sodium Chloride 55 ml @ 110 mls/hr Q24H IVPB 01/07/20 09:00 01/08/20 08:59 Dexamethasone (Decadron) 4 mg DAILY ORAL 01/01/20 09:00 01/11/20 10:00 01/06/20 08:06 Dextrose (Dextrose 50%) 25 ml Q30M PRN IV Hypoglycemia 01/01/20 08:45 03/31/20 08:44 Dextrose (Dextrose 50%) 50 ml Q30M PRN IV Hypoglycemia 01/01/20 08:45 03/31/20 08:44 Diltiazem HCl (Cardizem) 15 mg Q12H PRN IVP For High Blood Pressure 01/03/20 07:00 02/02/20 06:59 Heparin Sodium (Porcine) (Heparin 5000 units/ml) 5,000 units EVERY 12 HOURS SUBQ 01/01/20 09:00 02/15/20 08:59 01/05/20 20:26 Insulin Aspart (NovoLOG) BEFORE MEALS AND HS SUBQ 01/01/20 11:30 03/31/20 11:29 01/06/20 05:48 Lorazepam (Ativan 2mg/ml 1ml) 2 mg Q4H PRN IV For Anxiety 01/05/20 08:45 01/12/20 08:44 Ondansetron HCl (Zofran) 4 mg Q6H PRN IVP Nausea & Vomiting 01/01/20 07:00 01/31/20 06:59 Pantoprazole (Protonix) 40 mg Q12HR IV 01/05/20 21:00 02/04/20 08:59 01/06/20 08:07 Sodium Chloride 1,000 ml @ 150 mls/hr Q6H40M IV 01/06/20 08:15 02/05/20 08:14 01/06/20 15:30 Allergies: Coded Allergies: DOXYCYCLINE (Verified Allergy, Unknown, 04/04/19) RIFAMPIN (Verified Allergy, Unknown, 04/04/19) ROS Limited/Unobtainable: Yes Subjective 84 YO F admitted with hypoxia. Now COVID 19 pneumonia. Cover for Int med-DR Peguero. ICU. Intubated and sedated Objective Last Vital Signs Date Time Temp Pulse Resp B/P (MAP) Pulse Ox O2 Delivery O2 Flow Rate FiO2 01/06/20 16:00 98.6 125 19 137/87 (104) 97 01/06/20 16:00 70 01/06/20 16:00 Mechanical Ventilator 01/01/20 04:25 10.0 Laboratory Tests Test 01/05/20 18:00 01/05/20 20:52 01/06/20 04:00 01/06/20 08:08 Urine Color Brown Urine Appearance Cloudy Urine pH 5 (4.5-8.0) Urine Specific [place] 1.015 (1.005-1.035) Urine Protein 4+ (NEGATIVE) H Urine Glucose (UA) 1+ (NEGATIVE) H Urine Ketones 2+ (NEGATIVE) H Urine Blood 5+ (NEGATIVE) H Urine Nitrite Negative (NEGATIVE) Urine Bilirubin 1+ (NEGATIVE) H Urine Ictotest Positive (NEGATIVE) Urine Urobilinogen 1 MG/DL (0.0-1.0) H Urine Leukocyte Esterase 1+ (NEGATIVE) H Urine RBC 15-20 /HPF (0 - 2) H Urine WBC 2-4 /HPF (0 - 2) Urine Squamous Epithelial Cells Occasional /LPF Urine Amorphous Sediment Moderate /LPF (NONE) H Urine Bacteria Few /HPF (NONE) Urine Coarse Granular Casts 5-10 /LPF (NONE) H Urine Random Sodium 27 mmol/L (20-110) POC Whole Blood Glucose Pending White Blood Count 10.0 K/UL (4.8-10.8) # Red Blood Count 3.57 M/UL (4.20-5.40) L Hemoglobin 9.1 G/DL (12.0-16.0) L Hematocrit 29.5 % (37.0-47.0) L Mean Corpuscular Volume 83 FL (80-99) Mean Corpuscular Hemoglobin 25.6 PG (27.0-31.0) L Mean Corpuscular Hemoglobin Concent 31.0 G/DL (32.0-36.0) L Red Cell Distribution Width 16.4 % (11.6-14.8) H Platelet Count 98 K/UL (150-450) L Mean Platelet Volume 7.7 FL (6.5-10.1) Neutrophils (%) (Auto) % (45.0-75.0) Lymphocytes (%) (Auto) % (20.0-45.0) Monocytes (%) (Auto) % (1.0-10.0) Eosinophils (%) (Auto) % (0.0-3.0) Basophils (%) (Auto) % (0.0-2.0) Differential Total Cells Counted 100 Neutrophils % (Manual) 92 % (45-75) H Lymphocytes % (Manual) 5 % (20-45) L Monocytes % (Manual) 3 % (1-10) Eosinophils % (Manual) 0 % (0-3) Basophils % (Manual) 0 % (0-2) Band Neutrophils 0 % (0-8) Platelet Estimate Decreased L Platelet Morphology Normal Hypochromasia 1+ Anisocytosis 1+ Sodium Level 142 MMOL/L (136-145) Potassium Level 3.5 MMOL/L (3.5-5.1) Chloride Level 103 MMOL/L (98-107) Carbon Dioxide Level 28 MMOL/L (21-32) Blood Urea Nitrogen 90 mg/dL (7-18) H Creatinine 2.4 MG/DL (0.55-1.30) H Estimat Glomerular Filtration Rate 19.2 mL/min (>60) Glucose Level 183 MG/DL (74-106) #H Calcium Level 9.4 MG/DL (8.5-10.1) Phosphorus Level 3.7 MG/DL (2.5-4.9) Magnesium Level 2.1 MG/DL (1.8-2.4) Total Bilirubin 0.6 MG/DL (0.2-1.0) Aspartate Amino Transf (AST/SGOT) 1404 U/L (15-37) H Alanine Aminotransferase (ALT/SGPT) 1946 U/L (12-78) H Alkaline Phosphatase 160 U/L (46-116) H Total Creatine Kinase 124 U/L (26-308) Troponin I 2.161 ng/mL (0.000-0.056) C-Reactive Protein, Quantitative 35.4 mg/dL (0.00-0.90) H Pro-B-Type Natriuretic Peptide 51965 pg/mL (0-125) H Total Protein 5.9 G/DL (6.4-8.2) L Albumin 2.5 G/DL (3.4-5.0) L Globulin 3.4 g/dL Albumin/Globulin Ratio 0.7 (1.0-2.7) L Thyroid Stimulating Hormone (TSH) 1.288 uiU/mL (0.358-3.740) Free Thyroxine 1.40 NG/DL (0.76-1.46) Free Triiodothyronine 0.6 pg/mL (2.3-4.2) L Digoxin Level 0.3 NG/ML (0.9-2.0) L Gamma Glutamyl Transpeptidase 43 U/L (5-85) Microbiology Date/Time Source Procedure Growth Status 01/05/20 12:00 Sputum Gram Stain - Final Resulted 01/05/20 12:00 Sputum Sputum Culture Pending Resulted Intake and Output 01/05/20 01/06/20 19:00 07:00 Intake Total 1985.84439 ml 1619 ml Output Total 190 ml 70 ml Balance 1795.46712 ml 1549 ml Free Water 50 ml IV Total 1985.58598 ml 1569 ml Output Urine Total 190 ml 70 ml # Bowel Movements 2 Objective PHYSICAL EXAMINATION: GENERAL: The patient is a well-developed and well-nourished female, in moderate respiratory distress. HEENT: Eyes, pupils equal and responsive to light and accommodation. Extraocular movements are intact. NECK: Supple without lymphadenopathy. CHEST: Mech vent; Decreased breath sounds at bilateral bases with crackles. Otherwise, without wheezes. CARDIOVASCULAR: Regular rhythm and rate. S1, S2 normal without murmurs, rubs, or gallops. ABDOMEN: Soft, nontender, and nondistended. Positive bowel sounds. No evidence of hepatosplenomegaly. Currently, no rebound or guarding noted. EXTREMITIES: Negative for clubbing, cyanosis, or edema. RECTAL/GENITAL: Not performed. NEUROLOGIC: Cranial nerves II through XII are grossly intact without focal deficits. Assessment/Plan Assessment/Plan ASSESSMENT: This is an 84-year-old female with: 1. COVID-19 positive. 2. Bilateral pneumonia. 3. Hypertension. 4. Atrial fibrillation. 5. Chronic obstructive pulmonary disease. 6. Coronary artery disease. 7. Congestive heart failure. 8. Diabetes type 2. 9. Hypothyroidism. 10. Hypercholesterolemia. 11. Rheumatoid arthritis. 12. Gastroesophageal reflux disease. 13. Respiratory failure 14. S/P cardiac arrest 01/05/20 TREATMENT: 1. COVID-19 positive/pneumonia. A Pulmonary consultation has been obtained with Dr. Ann-Marie Graves. ABX=ceftriaxone. Follow recommendations of Pulmonary. 2. Hypertension. Continue hydralazine as above. 3. Atrial fibrillation. Continue digoxin as above. 4. Chronic obstructive pulmonary disease. As above, a Pulmonary consultation has been obtained with Dr. Ann-Marie Graves. The patient is currently on albuterol nebulized q.4h. p..r.n. 5. Coronary disease/congestive heart failure. An echocardiogram is pending. A Cardiology consultation has been obtained with Dr. Gaming. 6. Diabetes type 2. NovoLog sliding scale has been instituted. 7. Hypothyroidism. Continue Synthroid as above. 8. Hypercholesterolemia. Continue atorvastatin as above. 9. Rheumatoid arthritis. 10. Gastroesophageal reflux disease. Continue Protonix as above. 11. Continue mech vent per pulmonary 12. continue Remdesivir and decadron Harris Greenfield MD Jan 06, 2020 17:34
--- NOTE | 2020-01-06 19:09 | NUR ---
NURSE HAND-OFF REPORT: Latest Vital Signs: Temperature 98.6 , Pulse 128 , B/P 164 /103 , Respiratory Rate 24 , O2 SAT 98 , Mechanical Ventilator, O2 Flow Rate 10.0 . Vital Sign Comment: EKG Rhythm: Atrial Fibrillation Rhythm change?: N Notified?: Eliezer Gaming MD Response: No New Orders Received Latest Shaw Fall Score: 70 Fall Risk: High Risk Safety Measures: Call light Within Reach, Bed Alarm Zone 2, Side Rails Side Rails x3, Bed position Low and Locked. Fall Precautions: Yellow Socks Report given to Durga JOHNSON.
--- NOTE | 2020-01-06 19:20 | NUR ---
RESPIRATORY NOTE: Received pt on AC 16, 600VT, 70%, PEEP +5. Pt intubated w/ ETT 7.5 @ 23cm lipline, secured by anchorfast. Pt asleep/obtunded. B/S luis. rhonchi/diminished, sxn minimal amounts of thick, pink/tirado-yellow secretions w/ occasional blood clots. Vent plugged into red outlet, ambubag at bedside. Pt in no apparent distress at this time. Will continue to monitor pt.
--- NOTE | 2020-01-06 19:36 | Cardiology Progress Note ---
Assessment/Plan Assessment/Plan paf pneumonia pulm htn 90's copd dm acute covid 19 infection diastolic failure cardiopulm arrest (pt was found off bipap) respiratory acidosis ARF abn lft probable shock liver imporved abn trop likey realtedt o cpr cxr personally reviewed has bilateral pulm infiltrates s/p remdezivir on empiric abx and steroids personally reviewed tele:afib now off Cardizem will start on a drop as tachy dig level ok will intermittently dose dig echo noted form a few days ago abnormal trop today as expected post cpr ekg form yest adn today pers reviewd no st or t wave abn supportive care at this time not need pressror but diana be observed for need vent support heparin for dvt ppx in the settign of unstable renal function post arf remains critically ill and at riks of dying d/w rn Subjective ROS Limited/Unobtainable: Yes Subjective remain on the vent not responsive per rn Objective Last 24 Hour Vital Signs Date Time Temp Pulse Resp B/P (MAP) Pulse Ox O2 Delivery O2 Flow Rate FiO2 01/06/20 19:17 126 18 70 01/06/20 19:00 128 24 164/103 (123) 98 01/06/20 18:00 127 31 127/85 (99) 98 01/06/20 18:00 128 28 127/85 (99) 98 01/06/20 17:00 127 29 116/53 (74) 96 01/06/20 16:00 98.6 125 19 137/87 (104) 97 01/06/20 16:00 70 01/06/20 16:00 Mechanical Ventilator 01/06/20 16:00 123 01/06/20 15:00 125 16 70 01/06/20 15:00 126 19 152/85 (107) 97 01/06/20 14:00 123 17 124/58 (80) 96 01/06/20 13:00 120 17 123/57 (79) 96 01/06/20 12:00 70 01/06/20 12:00 Mechanical Ventilator 01/06/20 12:00 99.1 115 17 127/68 (87) 96 01/06/20 11:23 127 01/06/20 11:04 108 16 70 01/06/20 11:00 115 17 122/70 (87) 95 01/06/20 10:00 117 18 114/69 (84) 96 01/06/20 09:00 118 20 132/68 (89) 96 01/06/20 08:00 Mechanical Ventilator 01/06/20 08:00 70 01/06/20 08:00 98.7 111 18 114/66 (82) 96 01/06/20 07:38 101 01/06/20 07:29 116 20 70 01/06/20 07:00 110 20 131/68 (89) 96 01/06/20 06:00 117 20 144/67 (92) 95 01/06/20 05:00 110 18 113/71 (85) 93 01/06/20 04:00 99.2 105 18 120/80 (93) 95 01/06/20 04:00 70 01/06/20 04:00 Mechanical Ventilator 01/06/20 04:00 106 01/06/20 03:17 101 16 70 01/06/20 03:00 103 17 131/73 (92) 93 01/06/20 02:00 100 16 124/72 (89) 96 01/06/20 01:00 100 16 102/55 (71) 96 01/06/20 00:00 70 01/06/20 00:00 Mechanical Ventilator 01/06/20 00:00 100 01/06/20 00:00 98.8 98 16 110/70 (83) 96 01/05/20 23:07 102 16 80 01/05/20 23:00 95 16 92/51 (65) 96 01/05/20 22:00 99.4 111 16 120/66 (84) 97 01/05/20 21:00 121 19 129/75 (93) 97 01/05/20 20:00 80 01/05/20 20:00 100.9 122 18 128/76 (93) 93 01/05/20 20:00 127 01/05/20 20:00 Mechanical Ventilator General Appearance: no apparent distress, on vent, patient on isolation, isolation precautions Intake and Output 01/05/20 01/06/20 18:59 06:59 Intake Total 1635.86590 ml 1869 ml Output Total 180 ml 80 ml Balance 1455.15789 ml 1789 ml Free Water 50 ml IV Total 1635.33107 ml 1819 ml Output Urine Total 180 ml 80 ml # Bowel Movements 2 Laboratory Tests Test 01/05/20 20:52 9/24/20 04:00 01/06/20 08:08 POC Whole Blood Glucose Pending White Blood Count 10.0 K/UL (4.8-10.8) # Red Blood Count 3.57 M/UL (4.20-5.40) L Hemoglobin 9.1 G/DL (12.0-16.0) L Hematocrit 29.5 % (37.0-47.0) L Mean Corpuscular Volume 83 FL (80-99) Mean Corpuscular Hemoglobin 25.6 PG (27.0-31.0) L Mean Corpuscular Hemoglobin Concent 31.0 G/DL (32.0-36.0) L Red Cell Distribution Width 16.4 % (11.6-14.8) H Platelet Count 98 K/UL (150-450) L Mean Platelet Volume 7.7 FL (6.5-10.1) Neutrophils (%) (Auto) % (45.0-75.0) Lymphocytes (%) (Auto) % (20.0-45.0) Monocytes (%) (Auto) % (1.0-10.0) Eosinophils (%) (Auto) % (0.0-3.0) Basophils (%) (Auto) % (0.0-2.0) Differential Total Cells Counted 100 Neutrophils % (Manual) 92 % (45-75) H Lymphocytes % (Manual) 5 % (20-45) L Monocytes % (Manual) 3 % (1-10) Eosinophils % (Manual) 0 % (0-3) Basophils % (Manual) 0 % (0-2) Band Neutrophils 0 % (0-8) Platelet Estimate Decreased L Platelet Morphology Normal Hypochromasia 1+ Anisocytosis 1+ Sodium Level 142 MMOL/L (136-145) Potassium Level 3.5 MMOL/L (3.5-5.1) Chloride Level 103 MMOL/L (98-107) Carbon Dioxide Level 28 MMOL/L (21-32) Blood Urea Nitrogen 90 mg/dL (7-18) H Creatinine 2.4 MG/DL (0.55-1.30) H Estimat Glomerular Filtration Rate 19.2 mL/min (>60) Glucose Level 183 MG/DL (74-106) #H Calcium Level 9.4 MG/DL (8.5-10.1) Phosphorus Level 3.7 MG/DL (2.5-4.9) Magnesium Level 2.1 MG/DL (1.8-2.4) Total Bilirubin 0.6 MG/DL (0.2-1.0) Aspartate Amino Transf (AST/SGOT) 1404 U/L (15-37) H Alanine Aminotransferase (ALT/SGPT) 1946 U/L (12-78) H Alkaline Phosphatase 160 U/L (46-116) H Total Creatine Kinase 124 U/L (26-308) Troponin I 2.161 ng/mL (0.000-0.056) C-Reactive Protein, Quantitative 35.4 mg/dL (0.00-0.90) H Pro-B-Type Natriuretic Peptide 40024 pg/mL (0-125) H Total Protein 5.9 G/DL (6.4-8.2) L Albumin 2.5 G/DL (3.4-5.0) L Globulin 3.4 g/dL Albumin/Globulin Ratio 0.7 (1.0-2.7) L Thyroid Stimulating Hormone (TSH) 1.288 uiU/mL (0.358-3.740) Free Thyroxine 1.40 NG/DL (0.76-1.46) Free Triiodothyronine 0.6 pg/mL (2.3-4.2) L Digoxin Level 0.3 NG/ML (0.9-2.0) L Gamma Glutamyl Transpeptidase 43 U/L (5-85) Microbiology Date/Time Source Procedure Growth Status 01/05/20 12:00 Sputum Gram Stain - Final Resulted 01/05/20 12:00 Sputum Sputum Culture Pending Resulted Objective pt vit covid exam deferred per dr gloria Status: awake HEENT: atraumatic, normocephalic Lungs: clear, chest wall tender Heart: HR/BP stable Abdomen: soft, non-tender Extremities: no C/C/E, edema per rn very anxious Reginaldo Gaming MD Jan 06, 2020 19:36
--- NOTE | 2020-01-06 19:45 | NUR ---
NURSE NOTES: Dr. Valera at bedside round on patient. Informed MD regarding HR Afib with RVR 130s. MD ordered to give patient 5mg of Diltiazem IVP and place patient on Diltiazem gtt at 5mg/hr.
[2020-01-06] MEDS ORDERED: dilTIAZem HCl 25mg/5ml Inj IVP SCH (19:52)
[2020-01-06] MEDS ORDERED: dilTIAZem Premix 125mg/125ml 125 ML IVPB SCH (20:00)
--- NOTE | 2020-01-06 20:00 | NUR ---
NURSE NOTES: Patient assessment performed, temperature noted to be 100.3F (ax). Tylenol 650mg via NGT given and cooling measures provided. Patients gag reflexes remain hypoactive but a bit more active compared to last nights 01/04. Eyes open spontaneously but does not track. Oral care was performed and patient was lavaged and suctioned. Repositioned, passive ROM provided. bilateral upper and lower extremities 0/5 strength. Will continue to monitor.
--- NOTE | 2020-01-06 22:00 | NUR ---
NURSE NOTES: Repositioned and suctioned. In Afib rhythm ranging around 100-117. Blood pressures are stable 115/78. Diltiazem at 5mg/hr. No acute distress. Patients urine output 5-10ml for about every 2 hours. Afebrile.
[2020-01-07] VITALS (27 sets, daily range): BP systolic 115–148; BP diastolic 44–71
--- NOTE | 2020-01-07 | NUR ---
NURSE NOTES: Patient repositioned and provided with oral care. Vitals remains stable at this time, no new neuro changes observed. Hypoactive gag reflexes. No acute distress. Fio2 brought down to 70%. Will continue to monitor.
--- NOTE | 2020-01-07 02:00 | NUR ---
NURSE NOTES: Patient repositioned and suctioned. Vitals remains stable, patients neuro status now seems to be more obtunded like. 0/5 strength upper and low extremities. Afebrile-temperature ranging in the mid 99s F. Patient is not making much urine output but is making more than what she did 24hours. Patient is starting to develop generalized edema. Tolerating ventilator settings. Vent and airway tubing safety checks performed. Will continue to monitor.
--- NOTE | 2020-01-07 04:00 | NUR ---
NURSE NOTES: Sponge bath given, oral care and suctioned performed. lavaged patient. Blood drawn peripherally and sent to lab. Diltiazem gtt remains at 5mg/hr, Afib rhythm ranging 80-100s. Blood pressures remains stable. Temperature is 99.5F, cooling bath provided during sponge bath. NAD at this time. Fluids hung.
[2020-01-07 05:23] LABS: HEMATOCRIT 28.6 % (37.0-47.0); MEAN CORPUSCULAR VOLUME 82 FL (80-99); RED BLOOD COUNT 3.49 M/UL (4.20-5.40)
[2020-01-07 05:24] LABS: PLATELET COUNT 120 K/UL (150-450); RED CELL DISTRIBUTION WIDTH 16.7 % (11.6-14.8)
[2020-01-07] MEDS: NovoLOG Insulin Flexpen SUBQ SCH ×4 (05:39→21:00)
[2020-01-07 05:54] LABS: ALBUMIN 2.6 G/DL (3.4-5.0); ALBUMIN/GLOBULIN RATIO 0.8 (1.0-2.7); BILIRUBIN,TOTAL 0.6 MG/DL (0.2-1.0); CALCIUM 8.8 MG/DL (8.5-10.1); CREATININE 2.6 MG/DL (0.55-1.30); POTASSIUM 3.2 MMOL/L (3.5-5.1)
[2020-01-07 05:56] LABS: PHOSPHORUS 3.8 MG/DL (2.5-4.9)
--- NOTE | 2020-01-07 06:00 | NUR ---
NURSE NOTES: Patient repositioned and suctioned. Vitals remains stable, controlled Afib rhythm with Cardizem gtt at 5mg/hr. no new neuro changes observed, remains obtunded. Patients temperature now after Tylenol was given for a temperature of 100F is now 99.7F, Cooling measures remain in effect. Tolerating ventilator settings. Vent and airway tubing safety checks performed. Will continue to monitor.
--- NOTE | 2020-01-07 06:55 | NUR ---
HAND-OFF: Report given to Jeanette JOHNSON.
--- NOTE | 2020-01-07 07:30 | NUR ---
NURSE NOTES: Patient received from Naun JOHNSON. Patient stable at this time AOx0. Pupils MALLY. Gag reflex present. Obtunded at this time. A fib on youth nutritional monitor. Cardiac sounds benign. ETT tube in place. 7.5 23 lip line. Ventilator settings AC 16 600mg 50% P5. OGT in place. NPO. Kelsey draining well to gravity. Peripheral IVs flushed and patent. LT subclavian dressing dry and intact with fluids infusing. Side rails upx2, bed low and locked. Will continue to monitor.
[2020-01-07] MEDS: Pantoprazole Inj IV SCH ×2 (08:39→20:05)
[2020-01-07] MEDS: Heparin 5000 units/ml inj SUBQ SCH ×2 (08:41→20:06)
[2020-01-07] MEDS ORDERED: cefTRIAXone 1 GM in NS 55 ML IVPB SCH (09:00)
--- NOTE | 2020-01-07 10:00 | NUR ---
NURSE NOTES: Patient stable. No s/sx of pain or distress.
--- NOTE | 2020-01-07 10:10 | NUR ---
RADIOLOGY DEPT., CHEST X-RAY PERFORMED.-P.DYE
--- NOTE | 2020-01-07 10:25 | NUR ---
RESPIRATORY NOTES PT placed on SBT - CPAP 5, PS 8. PT unable to tolerate weaning well - Vt <200, RR ~40, SaO2 84%. PT then placed back onto previous vent settings. ALEX adler. Will continue to monitor.
--- NOTE | 2020-01-07 10:26 | Pulmonolgy Critical Care Note ---
Critical Care - Asmt/Plan Problems: (1) 2019 novel coronavirus detected (2) Acute on chronic systolic (congestive) heart failure (3) Atrial fibrillation (4) Diabetes mellitus (5) CHF (congestive heart failure) (6) Hypothyroidism (7) Chronic respiratory failure (8) History of hypertension Respiratory: monitor respiratory rate, adjust FIO2, CXR Cardiac: continue pressors, continue to monitor HR/BP Renal: F/U I&O, keep IV fluid, check electrolytes Infectious Disease: check cultures, continue antibiotics Gastrointestinal: continue feedings/current rate Endocrine: continue sliding scale insulin Neurologic: PRN Ativan, PRN Morphine Affect: PRN ativan Prophylaxis: Protonix Time Spent (Minutes): 40 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: manager port, cardio, renal Discussed with: nurses, consultants, bilingual patient support caseworkerphlebotomy manager - Objective Last 24 Hour Vital Signs Date Time Temp Pulse Resp B/P (MAP) Pulse Ox O2 Delivery O2 Flow Rate FiO2 01/07/20 10:00 94 19 125/51 (75) 91 01/07/20 09:00 92 21 140/56 (84) 91 01/07/20 08:00 50 01/07/20 08:00 98.1 93 19 131/48 (75) 92 01/07/20 08:00 Mechanical Ventilator 01/07/20 07:25 93 19 60 01/07/20 07:00 99.5 91 19 120/53 (75) 93 01/07/20 06:30 89 18 120/44 (69) 92 01/07/20 06:00 99.7 92 15 115/44 (67) 92 01/07/20 05:35 99.7 01/07/20 05:30 86 18 123/51 (75) 92 01/07/20 05:00 100.0 90 17 118/68 (85) 96 01/07/20 04:30 92 17 117/55 (75) 94 01/07/20 04:00 88 01/07/20 04:00 Mechanical Ventilator 01/07/20 04:00 99.4 94 18 117/53 (74) 94 01/07/20 04:00 60 01/07/20 03:27 79 17 60 01/07/20 03:00 91 17 143/65 (91) 97 01/07/20 02:00 91 16 135/71 (92) 96 01/07/20 01:00 98 16 134/62 (86) 98 01/07/20 00:00 99.2 99 17 140/66 (90) 96 01/07/20 00:00 70 01/07/20 00:00 Mechanical Ventilator 01/07/20 00:00 109 01/06/20 23:23 114 17 70 01/06/20 23:00 101 17 133/55 (81) 96 01/06/20 22:30 110 18 130/70 (90) 97 01/06/20 22:00 99.6 115 18 136/61 (86) 97 01/06/20 21:30 122 17 115/64 (81) 96 01/06/20 21:06 99.8 01/06/20 21:00 133 23 158/73 (101) 96 01/06/20 20:34 126 164/103 01/06/20 20:30 132 29 164/76 (105) 98 01/06/20 20:00 Mechanical Ventilator 01/06/20 20:00 70 01/06/20 20:00 100.3 136 29 154/72 (99) 98 01/06/20 19:30 129 29 135/54 (81) 98 01/06/20 19:17 130 01/06/20 19:17 126 18 70 01/06/20 19:00 128 24 164/103 (123) 98 01/06/20 18:00 127 31 127/85 (99) 98 01/06/20 18:00 128 28 127/85 (99) 98 01/06/20 17:00 127 29 116/53 (74) 96 01/06/20 16:00 98.6 125 19 137/87 (104) 97 01/06/20 16:00 70 01/06/20 16:00 Mechanical Ventilator 01/06/20 16:00 123 01/06/20 15:00 125 16 70 01/06/20 15:00 126 19 152/85 (107) 97 01/06/20 14:00 123 17 124/58 (80) 96 01/06/20 13:00 120 17 123/57 (79) 96 01/06/20 12:00 70 01/06/20 12:00 Mechanical Ventilator 01/06/20 12:00 99.1 115 17 127/68 (87) 96 01/06/20 11:23 127 01/06/20 11:04 108 16 70 01/06/20 11:00 115 17 122/70 (87) 95 Status: sedated Condition: critical HEENT: atraumatic Neck: full ROM Heart: HR/BP stable Abdomen: soft, non-tender Extremities: no C/C/E, edema Decubiti: location Micro: Microbiology Date/Time Source Procedure Growth Status 01/05/20 12:00 Sputum Gram Stain - Final Complete 01/05/20 12:00 Sputum Sputum Culture - Final NORMAL UPPER RESPIRATORY SAUL PRESENT Complete Accucheck: 124 Critical Care - Subjective ROS Limited/Unobtainable: Yes Condition: critical EKG Rhythm: Sinus Rhythm FI02: 50 Vent Support Breath Rate: 16 Vent Support Mode: AC Vent Tidal Volume: 600 Sputum Amount: Small PEEP: 5.0 PIP: 36 I&O: Intake and Output 01/06/20 01/07/20 18:59 06:59 Intake Total 1500 ml 1850 ml Output Total 40 ml 130 ml Balance 1460 ml 1720 ml Free Water 50 ml IV Total 1500 ml 1800 ml Output Urine Total 40 ml 130 ml CXR: extensive bilateral infiltrate, ET tube in place ET-Tube: 7.5 ET Position: 23 Labs: Laboratory Tests Test 01/06/20 20:40 01/07/20 04:00 POC Whole Blood Glucose Pending White Blood Count 18.0 K/UL (4.8-10.8) #H Red Blood Count 3.49 M/UL (4.20-5.40) L Hemoglobin 9.0 G/DL (12.0-16.0) L Hematocrit 28.6 % (37.0-47.0) L Mean Corpuscular Volume 82 FL (80-99) Mean Corpuscular Hemoglobin 25.7 PG (27.0-31.0) L Mean Corpuscular Hemoglobin Concent 31.5 G/DL (32.0-36.0) L Red Cell Distribution Width 16.7 % (11.6-14.8) H Platelet Count 120 K/UL (150-450) L Mean Platelet Volume 9.6 FL (6.5-10.1) Neutrophils (%) (Auto) % (45.0-75.0) Lymphocytes (%) (Auto) % (20.0-45.0) Monocytes (%) (Auto) % (1.0-10.0) Eosinophils (%) (Auto) % (0.0-3.0) Basophils (%) (Auto) % (0.0-2.0) Differential Total Cells Counted 100 Neutrophils % (Manual) 91 % (45-75) H Lymphocytes % (Manual) 2 % (20-45) L Monocytes % (Manual) 3 % (1-10) Eosinophils % (Manual) 0 % (0-3) Basophils % (Manual) 0 % (0-2) Band Neutrophils 4 % (0-8) Platelet Estimate Decreased L Platelet Morphology Normal Hypochromasia 2+ Anisocytosis 1+ Sodium Level 137 MMOL/L (136-145) Potassium Level 3.2 MMOL/L (3.5-5.1) L Chloride Level 100 MMOL/L (98-107) Carbon Dioxide Level 25 MMOL/L (21-32) Anion Gap 13 mmol/L (5-15) Blood Urea Nitrogen 92 mg/dL (7-18) H Creatinine 2.6 MG/DL (0.55-1.30) H Estimat Glomerular Filtration Rate 17.5 mL/min (>60) Glucose Level 125 MG/DL (74-106) H Uric Acid 13.4 MG/DL (2.6-7.2) H Calcium Level 8.8 MG/DL (8.5-10.1) Phosphorus Level 3.8 MG/DL (2.5-4.9) Magnesium Level 1.8 MG/DL (1.8-2.4) Total Bilirubin 0.6 MG/DL (0.2-1.0) Gamma Glutamyl Transpeptidase 62 U/L (5-85) Aspartate Amino Transf (AST/SGOT) 1095 U/L (15-37) H Alanine Aminotransferase (ALT/SGPT) 1221 U/L (12-78) H Alkaline Phosphatase 165 U/L (46-116) H Pro-B-Type Natriuretic Peptide 10988 pg/mL (0-125) H Total Protein 5.7 G/DL (6.4-8.2) L Albumin 2.6 G/DL (3.4-5.0) L Globulin 3.1 g/dL Albumin/Globulin Ratio 0.8 (1.0-2.7) L Ann-Marie Graves MD Jan 07, 2020 10:26
--- NOTE | 2020-01-07 10:40 | NUR ---
NURSE NOTES: Unable to wean patient per RT.
--- NOTE | 2020-01-07 10:42 | Nephrology Progress Note ---
Assessment/Plan Problem List: (1) BORIS (acute kidney injury) (2) 2019 novel coronavirus detected (3) Hypothyroidism (4) Diabetes mellitus (5) Atrial fibrillation (6) Shock liver Assessment 85-year-old female admitted 5 days ago, at the time serum creatinine was 0.9 and today the serum creatinine is 1.4, most likely BORIS Hypernatremia secondary to free water deficit Prerenal azotemia COVID-19 virus detected Acute on chronic systolic congestive heart failure Atrial fibrillation Diabetes mellitus Hypothyroidism Hypertension Acute on chronic respiratory failure Plan January 06: Labs reviewed. Serum creatinine up to 2.6. Medications reviewed. Continue to follow renal parameters and electrolytes. Continue to monitor liver enzymes. Allopurinol for high uric acid given. Discussed with RN. January 05: Blood pressure stable off pressors. Continue IV fluids. Monitor renal parameters. Monitor liver function tests. Hold oral Synthroid at this time. Continue treatment for sepsis and COVID-19 infection IV fluids Keep the blood pressure over 100 systolic Monitor renal parameters and electrolytes Monitor liver function tests Avoid nephrotoxic's as possible Urine studies Digoxin level Thyroid function tests Per orders Subjective ROS Limited/Unobtainable: Yes Objective Objective Last 24 Hour Vital Signs Date Time Temp Pulse Resp B/P (MAP) Pulse Ox O2 Delivery O2 Flow Rate FiO2 01/07/20 10:00 94 19 125/51 (75) 91 01/07/20 09:00 92 21 140/56 (84) 91 01/07/20 08:00 50 01/07/20 08:00 98.1 93 19 131/48 (75) 92 01/07/20 08:00 Mechanical Ventilator 01/07/20 07:25 93 19 60 01/07/20 07:00 99.5 91 19 120/53 (75) 93 01/07/20 06:30 89 18 120/44 (69) 92 01/07/20 06:00 99.7 92 15 115/44 (67) 92 01/07/20 05:35 99.7 01/07/20 05:30 86 18 123/51 (75) 92 01/07/20 05:00 100.0 90 17 118/68 (85) 96 01/07/20 04:30 92 17 117/55 (75) 94 01/07/20 04:00 88 01/07/20 04:00 Mechanical Ventilator 9/25/20 04:00 99.4 94 18 117/53 (74) 94 01/07/20 04:00 60 01/07/20 03:27 79 17 60 01/07/20 03:00 91 17 143/65 (91) 97 01/07/20 02:00 91 16 135/71 (92) 96 01/07/20 01:00 98 16 134/62 (86) 98 01/07/20 00:00 99.2 99 17 140/66 (90) 96 01/07/20 00:00 70 01/07/20 00:00 Mechanical Ventilator 01/07/20 00:00 109 01/06/20 23:23 114 17 70 01/06/20 23:00 101 17 133/55 (81) 96 01/06/20 22:30 110 18 130/70 (90) 97 01/06/20 22:00 99.6 115 18 136/61 (86) 97 01/06/20 21:30 122 17 115/64 (81) 96 01/06/20 21:06 99.8 01/06/20 21:00 133 23 158/73 (101) 96 01/06/20 20:34 126 164/103 01/06/20 20:30 132 29 164/76 (105) 98 01/06/20 20:00 Mechanical Ventilator 01/06/20 20:00 70 01/06/20 20:00 100.3 136 29 154/72 (99) 98 01/06/20 19:30 129 29 135/54 (81) 98 01/06/20 19:17 130 01/06/20 19:17 126 18 70 01/06/20 19:00 128 24 164/103 (123) 98 01/06/20 18:00 127 31 127/85 (99) 98 01/06/20 18:00 128 28 127/85 (99) 98 01/06/20 17:00 127 29 116/53 (74) 96 01/06/20 16:00 98.6 125 19 137/87 (104) 97 01/06/20 16:00 70 01/06/20 16:00 Mechanical Ventilator 01/06/20 16:00 123 01/06/20 15:00 125 16 70 01/06/20 15:00 126 19 152/85 (107) 97 01/06/20 14:00 123 17 124/58 (80) 96 01/06/20 13:00 120 17 123/57 (79) 96 01/06/20 12:00 70 01/06/20 12:00 Mechanical Ventilator 01/06/20 12:00 99.1 115 17 127/68 (87) 96 01/06/20 11:23 127 01/06/20 11:04 108 16 70 01/06/20 11:00 115 17 122/70 (87) 95 Intake and Output 01/06/20 01/07/20 19:00 07:00 Intake Total 1550 ml 1700 ml Output Total 40 ml 155 ml Balance 1510 ml 1545 ml Free Water 50 ml IV Total 1550 ml 1650 ml Output Urine Total 40 ml 155 ml Laboratory Tests 01/06/20 20:40: POC Whole Blood Glucose [Pending] 01/07/20 04:00: White Blood Count 18.0#H, Red Blood Count 3.49L, Hemoglobin 9.0L, Hematocrit 28.6L, Mean Corpuscular Volume 82, Mean Corpuscular Hemoglobin 25.7L, Mean Corpuscular Hemoglobin Concent 31.5L, Red Cell Distribution Width 16.7H, Platelet Count 120L, Mean Platelet Volume 9.6, Neutrophils (%) (Auto) , Lymphocytes (%) (Auto) , Monocytes (%) (Auto) , Eosinophils (%) (Auto) , Basophils (%) (Auto) , Differential Total Cells Counted 100, Neutrophils % (Manual) 91H, Lymphocytes % (Manual) 2L, Monocytes % (Manual) 3, Eosinophils % (Manual) 0, Basophils % (Manual) 0, Band Neutrophils 4, Platelet Estimate DecreasedL, Platelet Morphology Normal, Hypochromasia 2+, Anisocytosis 1+, Sodium Level 137, Potassium Level 3.2L, Chloride Level 100, Carbon Dioxide Level 25, Anion Gap 13, Blood Urea Nitrogen 92H, Creatinine 2.6H, Estimat Glomerular Filtration Rate 17.5, Glucose Level 125H, Uric Acid 13.4H, Calcium Level 8.8, Phosphorus Level 3.8, Magnesium Level 1.8, Total Bilirubin 0.6, Gamma Glutamyl Transpeptidase 62, Aspartate Amino Transf (AST/SGOT) 1095H, Alanine Aminotransferase (ALT/SGPT) 1221H, Alkaline Phosphatase 165H, Pro-B-Type Natriuretic Peptide 49540N, Total Protein 5.7L, Albumin 2.6L, Globulin 3.1, Albumin/Globulin Ratio 0.8L Height (Feet): 5 Height (Inches): 2.00 Weight (Pounds): 155 General Appearance: no apparent distress EENT: other - Intubated on ventilator Cardiovascular: tachycardia Respiratory/Chest: decreased breath sounds Abdomen: distended Naun Mandel MD Jan 07, 2020 10:42
--- NOTE | 2020-01-07 11:20 | Infectious Diseases Prog Note ---
Assessment/Plan Assessment: Asystole arrest Sepsis COVID19 pneumonia Acute hypoxic resp failure sp NRB> Bipap 100% Fio2> VDRF 100% -01/01 CXR: Vascular congestion/developing failure and bilateral patchy infiltrates, slightly worse since prior exam. Small bilateral pleural effusions.Prominent mediastinum likely due to tortuous/ectatic thoracic aorta. -12/31 CXR: Centrally predominant interstitial and airspace opacities, pulmonary edema most likely. Cardiomegaly. Fever; SP No leukocytosis Dm2 COPD HTN former smoker CAD CHF RA GERD hypothyroidism Afib NH resident ([facility]) Plan: - New Leukocytosis - Steroids VS new infection vs stress - Start Zosyn #1 and Lenazolid #1 - repeat blood, Urine and Sp Cx -Decadron #6/10 -Cont Remdesivir #5/10 per [facility] [place]- patient cannot provide consent; Benefits outweigh risks. - 01/07/20 Ceftriaxone #7 -12/31 SP Cefepime x1, Flagyl x1 -f/u cx -Monitor CBC/CMP, temperatures -ETT/ICU care Thank you for consulting [facility]. Will continue to follow along with you. Discussed wit RN and pharmacy staff. Subjective Allergies: Coded Allergies: DOXYCYCLINE (Verified Allergy, Unknown, 04/04/19) RIFAMPIN (Verified Allergy, Unknown, 04/04/19) Afebrile On Vent 50% O2 No Leukocytosis Afib RVR last night CXR today unchanged Objective Last 24 Hour Vital Signs Date Time Temp Pulse Resp B/P (MAP) Pulse Ox O2 Delivery O2 Flow Rate FiO2 01/07/20 10:25 92 01/07/20 10:00 94 19 125/51 (75) 91 01/07/20 09:00 92 21 140/56 (84) 91 01/07/20 08:00 50 01/07/20 08:00 98.1 93 19 131/48 (75) 92 01/07/20 08:00 Mechanical Ventilator 01/07/20 07:25 93 19 60 01/07/20 07:00 99.5 91 19 120/53 (75) 93 01/07/20 06:30 89 18 120/44 (69) 92 01/07/20 06:00 99.7 92 15 115/44 (67) 92 01/07/20 05:35 99.7 01/07/20 05:30 86 18 123/51 (75) 92 01/07/20 05:00 100.0 90 17 118/68 (85) 96 01/07/20 04:30 92 17 117/55 (75) 94 01/07/20 04:00 88 01/07/20 04:00 Mechanical Ventilator 01/07/20 04:00 99.4 94 18 117/53 (74) 94 01/07/20 04:00 60 01/07/20 03:27 79 17 60 01/07/20 03:00 91 17 143/65 (91) 97 01/07/20 02:00 91 16 135/71 (92) 96 01/07/20 01:00 98 16 134/62 (86) 98 01/07/20 00:00 99.2 99 17 140/66 (90) 96 01/07/20 00:00 70 01/07/20 00:00 Mechanical Ventilator 01/07/20 00:00 109 01/06/20 23:23 114 17 70 01/06/20 23:00 101 17 133/55 (81) 96 01/06/20 22:30 110 18 130/70 (90) 97 01/06/20 22:00 99.6 115 18 136/61 (86) 97 01/06/20 21:30 122 17 115/64 (81) 96 01/06/20 21:06 99.8 01/06/20 21:00 133 23 158/73 (101) 96 01/06/20 20:34 126 164/103 01/06/20 20:30 132 29 164/76 (105) 98 01/06/20 20:00 Mechanical Ventilator 01/06/20 20:00 70 01/06/20 20:00 100.3 136 29 154/72 (99) 98 01/06/20 19:30 129 29 135/54 (81) 98 01/06/20 19:17 130 01/06/20 19:17 126 18 70 01/06/20 19:00 128 24 164/103 (123) 98 01/06/20 18:00 127 31 127/85 (99) 98 01/06/20 18:00 128 28 127/85 (99) 98 01/06/20 17:00 127 29 116/53 (74) 96 01/06/20 16:00 98.6 125 19 137/87 (104) 97 01/06/20 16:00 70 01/06/20 16:00 Mechanical Ventilator 01/06/20 16:00 123 01/06/20 15:00 125 16 70 01/06/20 15:00 126 19 152/85 (107) 97 01/06/20 14:00 123 17 124/58 (80) 96 01/06/20 13:00 120 17 123/57 (79) 96 01/06/20 12:00 70 01/06/20 12:00 Mechanical Ventilator 01/06/20 12:00 99.1 115 17 127/68 (87) 96 01/06/20 11:23 127 Height (Feet): 5 Height (Inches): 2.00 Weight (Pounds): 155 GENERAL: On Vent 50%, Somnolent HEENT: NCAT, MMM LUNGS: Equal rise and fall of chest B/L no accessory muscle use ABDOMEN: Soft, nondistended EXTREMITIES: No cyanosis, clubbing, or edema. Microbiology Date/Time Source Procedure Growth Status 01/05/20 12:00 Sputum Gram Stain - Final Complete 01/05/20 12:00 Sputum Sputum Culture - Final NORMAL UPPER RESPIRATORY SAUL PRESENT Complete Laboratory Tests Test 01/06/20 20:40 01/07/20 04:00 POC Whole Blood Glucose Pending White Blood Count 18.0 K/UL (4.8-10.8) #H Red Blood Count 3.49 M/UL (4.20-5.40) L Hemoglobin 9.0 G/DL (12.0-16.0) L Hematocrit 28.6 % (37.0-47.0) L Mean Corpuscular Volume 82 FL (80-99) Mean Corpuscular Hemoglobin 25.7 PG (27.0-31.0) L Mean Corpuscular Hemoglobin Concent 31.5 G/DL (32.0-36.0) L Red Cell Distribution Width 16.7 % (11.6-14.8) H Platelet Count 120 K/UL (150-450) L Mean Platelet Volume 9.6 FL (6.5-10.1) Neutrophils (%) (Auto) % (45.0-75.0) Lymphocytes (%) (Auto) % (20.0-45.0) Monocytes (%) (Auto) % (1.0-10.0) Eosinophils (%) (Auto) % (0.0-3.0) Basophils (%) (Auto) % (0.0-2.0) Differential Total Cells Counted 100 Neutrophils % (Manual) 91 % (45-75) H Lymphocytes % (Manual) 2 % (20-45) L Monocytes % (Manual) 3 % (1-10) Eosinophils % (Manual) 0 % (0-3) Basophils % (Manual) 0 % (0-2) Band Neutrophils 4 % (0-8) Platelet Estimate Decreased L Platelet Morphology Normal Hypochromasia 2+ Anisocytosis 1+ Sodium Level 137 MMOL/L (136-145) Potassium Level 3.2 MMOL/L (3.5-5.1) L Chloride Level 100 MMOL/L (98-107) Carbon Dioxide Level 25 MMOL/L (21-32) Anion Gap 13 mmol/L (5-15) Blood Urea Nitrogen 92 mg/dL (7-18) H Creatinine 2.6 MG/DL (0.55-1.30) H Estimat Glomerular Filtration Rate 17.5 mL/min (>60) Glucose Level 125 MG/DL (74-106) H Uric Acid 13.4 MG/DL (2.6-7.2) H Calcium Level 8.8 MG/DL (8.5-10.1) Phosphorus Level 3.8 MG/DL (2.5-4.9) Magnesium Level 1.8 MG/DL (1.8-2.4) Total Bilirubin 0.6 MG/DL (0.2-1.0) Gamma Glutamyl Transpeptidase 62 U/L (5-85) Aspartate Amino Transf (AST/SGOT) 1095 U/L (15-37) H Alanine Aminotransferase (ALT/SGPT) 1221 U/L (12-78) H Alkaline Phosphatase 165 U/L (46-116) H Pro-B-Type Natriuretic Peptide 19958 pg/mL (0-125) H Total Protein 5.7 G/DL (6.4-8.2) L Albumin 2.6 G/DL (3.4-5.0) L Globulin 3.1 g/dL Albumin/Globulin Ratio 0.8 (1.0-2.7) L Current Medications Medications (Trade) Dose Ordered Sig/Brett Route PRN Reason Start Time Stop Time Status Last Admin Dose Admin Acetaminophen (Tylenol) 650 mg Q4H PRN ORAL FEVER 01/01/20 07:00 01/31/20 06:59 01/07/20 05:05 Acetaminophen (Tylenol) 650 mg Q4H PRN RECTAL Temp >100.5 01/03/20 09:30 02/02/20 09:29 01/03/20 12:18 Albuterol/ Ipratropium (Combivent Respimat) 1 puff Q4H PRN INH Shortness of Breath 01/05/20 20:00 02/04/20 19:59 Allopurinol (allopurinoL) 300 mg DAILY NG 01/07/20 10:45 02/06/20 10:44 Ceftriaxone Sodium 1 gm/ Sodium Chloride 55 ml @ 110 mls/hr Q24H IVPB 01/07/20 09:00 01/08/20 08:59 01/07/20 08:39 Dexamethasone (Decadron) 4 mg DAILY ORAL 01/01/20 09:00 01/11/20 10:00 01/07/20 08:39 Dextrose (Dextrose 50%) 25 ml Q30M PRN IV Hypoglycemia 01/01/20 08:45 03/31/20 08:44 Dextrose (Dextrose 50%) 50 ml Q30M PRN IV Hypoglycemia 01/01/20 08:45 03/31/20 08:44 Diltiazem HCl 125 ml @ 0 mls/hr Q24H IVPB 01/06/20 20:00 01/07/20 19:59 01/06/20 20:34 Diltiazem HCl (Cardizem) 15 mg Q12H PRN IVP For High Blood Pressure 01/03/20 07:00 02/02/20 06:59 Heparin Sodium (Porcine) (Heparin 5000 units/ml) 5,000 units EVERY 12 HOURS SUBQ 01/01/20 09:00 02/15/20 08:59 01/07/20 08:41 Insulin Aspart (NovoLOG) BEFORE MEALS AND HS SUBQ 01/01/20 11:30 03/31/20 11:29 01/06/20 05:48 Lorazepam (Ativan 2mg/ml 1ml) 2 mg Q4H PRN IV For Anxiety 01/05/20 08:45 01/12/20 08:44 Ondansetron HCl (Zofran) 4 mg Q6H PRN IVP Nausea & Vomiting 01/01/20 07:00 01/31/20 06:59 Pantoprazole (Protonix) 40 mg Q12HR IV 01/05/20 21:00 02/04/20 08:59 01/07/20 08:39 Sodium Chloride 1,000 ml @ 150 mls/hr Q6H40M IV 01/06/20 08:15 02/05/20 08:14 01/07/20 03:36 Mehrdad Yepez MD Jan 07, 2020 11:20
--- NOTE | 2020-01-07 12:00 | NUR ---
NURSE NOTES: Patient stable. No s/sx of pain or distress.
[2020-01-07] MEDS ORDERED: D5W 550ml IV ONE (12:46)
[2020-01-07] MEDS ORDERED: D5 1/2NS 1000ml IV ONE (12:46)
[2020-01-07] MEDS ORDERED: 1/2 NS 1000ml IV ONE (12:46)
[2020-01-07] MEDS ORDERED: Tubing IV Secondary IV ONE (12:46)
--- NOTE | 2020-01-07 13:12 | Diagnostic Imaging Report ---
Indication: Dyspnea Technique: One view of the chest Comparison: 01/06/2020 Findings: Stable satisfactory tube and line positions. Bilateral infiltrates are unchanged. The heart is borderline enlarged. Impression: Unchanged, over one day, findings as above.
[2020-01-07] MEDS: Piperacillin/Tazobactam 3.375 GM in NS 110 ML IVPB SCH (13:49)
--- NOTE | 2020-01-07 14:00 | NUR ---
NURSE NOTES: Patient stable. No s/sx of pain or distress. Addendum: 01/07/20 at 1638 by WENCESLAO GUPTA RN Feeding started at this time.
--- NOTE | 2020-01-07 14:41 | NUR ---
CASE MANAGEMENT:REVIEW 01/07/20 SI: COVID PNA 100.0 93 19 131/48 92% ON VENT SUPPORT W/50% FIO2 WBC+18.0 PLT-120 K-3.2 BUN+92 CR+2.6 IS: IV LINEZOLID Q12 IV ZOSYN Q12 IV ROCEPHIN Q24 IVF@150/HR : ICU STATUS DCP: FROM [facility]
--- NOTE | 2020-01-07 15:08 | NUR ---
INSURANCE CLINICALS/REVIEW SENT TO [facility]) FX [phone]
--- NOTE | 2020-01-07 15:24 | Internal Med Progress Note ---
Subjective Physician Name Fernando Peguero Attending Physician Fernando Peguero MD Current Medications Medications (Trade) Dose Ordered Sig/Brett Route PRN Reason Start Time Stop Time Status Last Admin Dose Admin Acetaminophen (Tylenol) 650 mg Q4H PRN ORAL FEVER 01/01/20 07:00 01/31/20 06:59 01/07/20 05:05 Acetaminophen (Tylenol) 650 mg Q4H PRN RECTAL Temp >100.5 01/03/20 09:30 02/02/20 09:29 01/03/20 12:18 Albuterol/ Ipratropium (Combivent Respimat) 1 puff Q4H PRN INH Shortness of Breath 01/05/20 20:00 02/04/20 19:59 Allopurinol (allopurinoL) 300 mg DAILY NG 01/07/20 10:45 02/06/20 10:44 01/07/20 13:49 Dexamethasone (Decadron) 4 mg DAILY ORAL 01/01/20 09:00 01/11/20 10:00 01/07/20 08:39 Dextrose (Dextrose 50%) 25 ml Q30M PRN IV Hypoglycemia 01/01/20 08:45 03/31/20 08:44 Dextrose (Dextrose 50%) 50 ml Q30M PRN IV Hypoglycemia 01/01/20 08:45 03/31/20 08:44 Diltiazem HCl 125 ml @ 0 mls/hr Q24H IVPB 01/06/20 20:00 01/07/20 19:59 01/06/20 20:34 Diltiazem HCl (Cardizem) 15 mg Q12H PRN IVP For High Blood Pressure 01/03/20 07:00 02/02/20 06:59 Heparin Sodium (Porcine) (Heparin 5000 units/ml) 5,000 units EVERY 12 HOURS SUBQ 01/01/20 09:00 02/15/20 08:59 01/07/20 08:41 Insulin Aspart (NovoLOG) BEFORE MEALS AND HS SUBQ 01/01/20 11:30 03/31/20 11:29 01/06/20 05:48 Linezolid 300 ml @ 300 mls/hr Q12HR IVPB 01/07/20 21:00 01/14/20 20:59 Lorazepam (Ativan 2mg/ml 1ml) 2 mg Q4H PRN IV For Anxiety 01/05/20 08:45 01/12/20 08:44 Ondansetron HCl (Zofran) 4 mg Q6H PRN IVP Nausea & Vomiting 01/01/20 07:00 01/31/20 06:59 Pantoprazole (Protonix) 40 mg Q12HR IV 01/05/20 21:00 02/04/20 08:59 01/07/20 08:39 Piperacillin Sod/ Tazobactam Sod 3.375 gm/Sodium Chloride 110 ml @ 27.5 mls/hr Q12H IVPB 01/07/20 13:00 01/14/20 12:59 01/07/20 13:49 Sodium Chloride 1,000 ml @ 150 mls/hr Q6H40M IV 01/06/20 08:15 02/05/20 08:14 01/07/20 10:55 Allergies: Coded Allergies: DOXYCYCLINE (Verified Allergy, Unknown, 04/04/19) RIFAMPIN (Verified Allergy, Unknown, 04/04/19) Subjective in respiratory isolation room, ICU, intubated remained on ventilation, WBC: 18. Objective Last Vital Signs Date Time Temp Pulse Resp B/P (MAP) Pulse Ox O2 Delivery O2 Flow Rate FiO2 01/07/20 11:15 96 19 60 01/07/20 10:25 92 01/07/20 10:00 125/51 (75) 01/07/20 08:00 98.1 01/07/20 08:00 Mechanical Ventilator 01/01/20 04:25 10.0 Laboratory Tests Test 01/06/20 20:40 01/07/20 04:00 POC Whole Blood Glucose Pending White Blood Count 18.0 K/UL (4.8-10.8) #H Red Blood Count 3.49 M/UL (4.20-5.40) L Hemoglobin 9.0 G/DL (12.0-16.0) L Hematocrit 28.6 % (37.0-47.0) L Mean Corpuscular Volume 82 FL (80-99) Mean Corpuscular Hemoglobin 25.7 PG (27.0-31.0) L Mean Corpuscular Hemoglobin Concent 31.5 G/DL (32.0-36.0) L Red Cell Distribution Width 16.7 % (11.6-14.8) H Platelet Count 120 K/UL (150-450) L Mean Platelet Volume 9.6 FL (6.5-10.1) Neutrophils (%) (Auto) % (45.0-75.0) Lymphocytes (%) (Auto) % (20.0-45.0) Monocytes (%) (Auto) % (1.0-10.0) Eosinophils (%) (Auto) % (0.0-3.0) Basophils (%) (Auto) % (0.0-2.0) Differential Total Cells Counted 100 Neutrophils % (Manual) 91 % (45-75) H Lymphocytes % (Manual) 2 % (20-45) L Monocytes % (Manual) 3 % (1-10) Eosinophils % (Manual) 0 % (0-3) Basophils % (Manual) 0 % (0-2) Band Neutrophils 4 % (0-8) Platelet Estimate Decreased L Platelet Morphology Normal Hypochromasia 2+ Anisocytosis 1+ Sodium Level 137 MMOL/L (136-145) Potassium Level 3.2 MMOL/L (3.5-5.1) L Chloride Level 100 MMOL/L (98-107) Carbon Dioxide Level 25 MMOL/L (21-32) Anion Gap 13 mmol/L (5-15) Blood Urea Nitrogen 92 mg/dL (7-18) H Creatinine 2.6 MG/DL (0.55-1.30) H Estimat Glomerular Filtration Rate 17.5 mL/min (>60) Glucose Level 125 MG/DL (74-106) H Uric Acid 13.4 MG/DL (2.6-7.2) H Calcium Level 8.8 MG/DL (8.5-10.1) Phosphorus Level 3.8 MG/DL (2.5-4.9) Magnesium Level 1.8 MG/DL (1.8-2.4) Total Bilirubin 0.6 MG/DL (0.2-1.0) Gamma Glutamyl Transpeptidase 62 U/L (5-85) Aspartate Amino Transf (AST/SGOT) 1095 U/L (15-37) H Alanine Aminotransferase (ALT/SGPT) 1221 U/L (12-78) H Alkaline Phosphatase 165 U/L (46-116) H Pro-B-Type Natriuretic Peptide 19078 pg/mL (0-125) H Total Protein 5.7 G/DL (6.4-8.2) L Albumin 2.6 G/DL (3.4-5.0) L Globulin 3.1 g/dL Albumin/Globulin Ratio 0.8 (1.0-2.7) L Microbiology Date/Time Source Procedure Growth Status 01/05/20 12:00 Sputum Gram Stain - Final Complete 01/05/20 12:00 Sputum Sputum Culture - Final NORMAL UPPER RESPIRATORY SAUL PRESENT Complete Intake and Output 01/06/20 01/07/20 19:00 07:00 Intake Total 1550 ml 1700 ml Output Total 40 ml 155 ml Balance 1510 ml 1545 ml Free Water 50 ml IV Total 1550 ml 1650 ml Output Urine Total 40 ml 155 ml Objective GENERAL: intubated, remained on ventilation. HEENT: Eyes, pupils equal and responsive to light and accommodation. ET tube, OG tube. NECK: Supple without lymphadenopathy. CHEST: mechanical breath sounds,Decreased breath sounds at bilateral bases, basilar rales. CARDIOVASCULAR: Regular rhythm and rate. S1, S2 normal without murmurs or gallops. ABDOMEN: Soft, nontender, and nondistended. Positive bowel sounds. obesity. EXTREMITIES: Negative for clubbing, cyanosis, or edema. GENITAL: Kelsey catheter. NEUROLOGIC: limited secondary to patient status, moving all extremities slowly. Assessment/Plan Assessment/Plan ASSESSMENT: This is an 84-year-old female with: 1. COVID-19 pneumonia 2.Acute respiratory failure. 3. Hypertension. 4. Atrial fibrillation. 5. Chronic obstructive pulmonary disease. 6. Coronary artery disease. 7. Congestive heart failure. 8. Diabetes type 2. 9. Hypothyroidism. 10. Hypercholesterolemia. 11. Rheumatoid arthritis. 12. Gastroesophageal reflux disease. 13. RADHA / BORIS 14. S/P cardiac arrest 01/05/20 TREATMENT: 1. COVID-19 positive/pneumonia. A Pulmonary consultation has been obtained with Dr. Ann-Marie Graves. 2. Hypertension. 3. Atrial fibrillation. Continue digoxin as above. 4. Chronic obstructive pulmonary disease. As above, a Pulmonary consultation has been obtained with Dr. Ann-Marei Graves. The patient is currently on albuterol nebulized q.4h. p..r.n. 5. Coronary disease/congestive heart failure. An echocardiogram is pending. A Cardiology consultation has been obtained with Dr. Gaming. 6. Diabetes type 2. NovoLog sliding scale has been instituted. 7. Hypothyroidism. Continue Synthroid as above. 8. Hypercholesterolemia. Continue atorvastatin as above. 9. Rheumatoid arthritis. 10. Gastroesophageal reflux disease. Continue Protonix as above. 11. Continue mech vent per pulmonary 12. Abx: Zosyn IV and Zyvox IV CODE STATUS: Full code DVT prophylaxis: Heparin subcu. Fernando Peguero MD Jan 07, 2020 15:24
--- NOTE | 2020-01-07 15:41 | Surgery Progress Note ---
Surgery Progress Note Subjective Procedure Performed left subclavian central venous catheter insertion Additional Comments ill appearing on support no n/v Objective Last 24 Hour Vital Signs Date Time Temp Pulse Resp B/P (MAP) Pulse Ox O2 Delivery O2 Flow Rate FiO2 01/07/20 11:15 96 19 60 01/07/20 10:25 92 01/07/20 10:00 94 19 125/51 (75) 91 01/07/20 09:00 92 21 140/56 (84) 91 01/07/20 08:00 50 01/07/20 08:00 98.1 93 19 131/48 (75) 92 01/07/20 08:00 Mechanical Ventilator 01/07/20 07:25 93 19 60 01/07/20 07:00 99.5 91 19 120/53 (75) 93 01/07/20 06:30 89 18 120/44 (69) 92 01/07/20 06:00 99.7 92 15 115/44 (67) 92 01/07/20 05:35 99.7 01/07/20 05:30 86 18 123/51 (75) 92 01/07/20 05:00 100.0 90 17 118/68 (85) 96 01/07/20 04:30 92 17 117/55 (75) 94 01/07/20 04:00 88 01/07/20 04:00 Mechanical Ventilator 01/07/20 04:00 99.4 94 18 117/53 (74) 94 01/07/20 04:00 60 01/07/20 03:27 79 17 60 01/07/20 03:00 91 17 143/65 (91) 97 01/07/20 02:00 91 16 135/71 (92) 96 01/07/20 01:00 98 16 134/62 (86) 98 01/07/20 00:00 99.2 99 17 140/66 (90) 96 01/07/20 00:00 70 01/07/20 00:00 Mechanical Ventilator 01/07/20 00:00 109 01/06/20 23:23 114 17 70 01/06/20 23:00 101 17 133/55 (81) 96 01/06/20 22:30 110 18 130/70 (90) 97 01/06/20 22:00 99.6 115 18 136/61 (86) 97 01/06/20 21:30 122 17 115/64 (81) 96 01/06/20 21:06 99.8 01/06/20 21:00 133 23 158/73 (101) 96 01/06/20 20:34 126 164/103 01/06/20 20:30 132 29 164/76 (105) 98 01/06/20 20:00 Mechanical Ventilator 01/06/20 20:00 70 01/06/20 20:00 100.3 136 29 154/72 (99) 98 01/06/20 19:30 129 29 135/54 (81) 98 01/06/20 19:17 130 01/06/20 19:17 126 18 70 01/06/20 19:00 128 24 164/103 (123) 98 01/06/20 18:00 127 31 127/85 (99) 98 01/06/20 18:00 128 28 127/85 (99) 98 01/06/20 17:00 127 29 116/53 (74) 96 01/06/20 16:00 98.6 125 19 137/87 (104) 97 01/06/20 16:00 70 01/06/20 16:00 Mechanical Ventilator 01/06/20 16:00 123 I&O Intake and Output 01/06/20 01/07/20 19:00 07:00 Intake Total 1550 ml 1700 ml Output Total 40 ml 155 ml Balance 1510 ml 1545 ml Free Water 50 ml IV Total 1550 ml 1650 ml Output Urine Total 40 ml 155 ml Dressing: other Wound: other Cardiovascular: RSR Respiratory: decreased breath sounds Abdomen: soft, non-tender, present bowel sounds Extremities: no tenderness, no cyanosis Laboratory Tests Test 01/06/20 20:40 01/07/20 04:00 POC Whole Blood Glucose Pending White Blood Count 18.0 K/UL (4.8-10.8) #H Red Blood Count 3.49 M/UL (4.20-5.40) L Hemoglobin 9.0 G/DL (12.0-16.0) L Hematocrit 28.6 % (37.0-47.0) L Mean Corpuscular Volume 82 FL (80-99) Mean Corpuscular Hemoglobin 25.7 PG (27.0-31.0) L Mean Corpuscular Hemoglobin Concent 31.5 G/DL (32.0-36.0) L Red Cell Distribution Width 16.7 % (11.6-14.8) H Platelet Count 120 K/UL (150-450) L Mean Platelet Volume 9.6 FL (6.5-10.1) Neutrophils (%) (Auto) % (45.0-75.0) Lymphocytes (%) (Auto) % (20.0-45.0) Monocytes (%) (Auto) % (1.0-10.0) Eosinophils (%) (Auto) % (0.0-3.0) Basophils (%) (Auto) % (0.0-2.0) Differential Total Cells Counted 100 Neutrophils % (Manual) 91 % (45-75) H Lymphocytes % (Manual) 2 % (20-45) L Monocytes % (Manual) 3 % (1-10) Eosinophils % (Manual) 0 % (0-3) Basophils % (Manual) 0 % (0-2) Band Neutrophils 4 % (0-8) Platelet Estimate Decreased L Platelet Morphology Normal Hypochromasia 2+ Anisocytosis 1+ Sodium Level 137 MMOL/L (136-145) Potassium Level 3.2 MMOL/L (3.5-5.1) L Chloride Level 100 MMOL/L (98-107) Carbon Dioxide Level 25 MMOL/L (21-32) Anion Gap 13 mmol/L (5-15) Blood Urea Nitrogen 92 mg/dL (7-18) H Creatinine 2.6 MG/DL (0.55-1.30) H Estimat Glomerular Filtration Rate 17.5 mL/min (>60) Glucose Level 125 MG/DL (74-106) H Uric Acid 13.4 MG/DL (2.6-7.2) H Calcium Level 8.8 MG/DL (8.5-10.1) Phosphorus Level 3.8 MG/DL (2.5-4.9) Magnesium Level 1.8 MG/DL (1.8-2.4) Total Bilirubin 0.6 MG/DL (0.2-1.0) Gamma Glutamyl Transpeptidase 62 U/L (5-85) Aspartate Amino Transf (AST/SGOT) 1095 U/L (15-37) H Alanine Aminotransferase (ALT/SGPT) 1221 U/L (12-78) H Alkaline Phosphatase 165 U/L (46-116) H Pro-B-Type Natriuretic Peptide 13089 pg/mL (0-125) H Total Protein 5.7 G/DL (6.4-8.2) L Albumin 2.6 G/DL (3.4-5.0) L Globulin 3.1 g/dL Albumin/Globulin Ratio 0.8 (1.0-2.7) L Plan Problems: (1) Acute on chronic systolic (congestive) heart failure (2) CO2 retention (3) BORIS (acute kidney injury) (4) Shock liver Assessment & Plan: Hypotensive septic acute elevation in LFTs AST ALT thousands alk phos elevated. Likely shock from hypotension and acute episode. Labs trending down. IV fluid hydration. No acute intervention. Hold on imaging. Line reviewed. No bleeding noted. All 3 ports functional. Chest x-ray reviewed. Drop in hemoglobin unlikely related to line. Will monitor. Trend labs. Transfuse PRN. And are improvement in position of previously malpositioned endotracheal tube, tip now projecting 1-2 cm above the garrett. Interim placement of an orogastric tube, tip of which projects beyond the edge of the image, presumably well within the stomach. Interim placement of a left subclavian central venous catheter, tip of which projects at the level of the innominate venous confluence. No pneumothorax. Bilateral infiltrates are again demonstrated, unchanged. Impression: Improved and now satisfactory position of endotracheal tube Interim left subclavian central venous catheter placement, no radiographically evident complication Interim orogastric intubation, apparently satisfactory Unchanged bilateral infiltrates (5) Atrial fibrillation (6) Diabetes mellitus (7) CHF (congestive heart failure) (8) Hypothyroidism (9) Chronic respiratory failure Assessment & Plan: Intubated intensive care unit weaning vent. ET tube in place. Chest x-ray reviewed. (10) History of hypertension (11) 2019 novel coronavirus detected Assessment & Plan: COVID positive as per ID and pulmonology appreciate input and care. Continue vent support wean as tolerated. Satinder Olivera Jan 07, 2020 15:41
--- NOTE | 2020-01-07 16:00 | NUR ---
NURSE NOTES: Patient stable. No s/sx of pain or distress.
[2020-01-07] MEDS: dilTIAZem Premix 125mg/125ml 125 ML IVPB SCH ×2 (17:00→23:04)
--- NOTE | 2020-01-07 18:00 | NUR ---
NURSE NOTES: Patient stable on Fentanyl drip since 1729 titrating up due to agitation and restlessness. Now at 30mcg. Patient cleaned at this time. Addendum: 01/07/20 at 2011 by WENCESLAO GUPTA RN Patient not on Fentanyl drip and is obtunded with no movements only periodically opens eyes with no eye contact and no tracking.
--- NOTE | 2020-01-07 19:30 | NUR ---
NURSE NOTES: Received patient from Carolyn JOHNSON. Patient AO x 0, Obtunded at this time. A-fib on desk monitor. ETT 7.5/23 cm from lip line. Ventilator settings: AC 16, TV 600, FiO2 50%, and Peep 5. OGT in place. Vital AF 1.2 10mL is running. Kelsey draining well to gravity. Peripheral IVs: R wrist 20G, RFA 22G, CDI L Subclavian (01/04), CDI 1/2 NS 150mL and Diltiazem 5mg/hr are running Safety measures observed and no acute distress noted. Will continue to monitor.
[2020-01-07] MEDS: Dyna-Hex 2% Top Sol 2oz TOPIC SCH (20:05)
--- NOTE | 2020-01-07 20:07 | NUR ---
NURSE HAND-OFF REPORT: Latest Vital Signs: Temperature 99.0 , Pulse 99 , B/P 144 /60 , Respiratory Rate 19 , O2 SAT 95 , Mechanical Ventilator, O2 Flow Rate 10.0 . Vital Sign Comment: STABLE EKG Rhythm: Atrial Fibrillation Rhythm change?: N MD Notified?: Response: Latest Shaw Fall Score: 70 Fall Risk: High Risk Safety Measures: Call light Within Reach, Bed Alarm Zone 2, Side Rails Side Rails x3, Bed position Low and Locked. Fall Precautions: Yellow Socks Report given to Masha JOHNSON. Patient stable. Endorsed that was unable to collect blood, sputum and urine cx.
--- NOTE | 2020-01-07 21:00 | NUR ---
NURSE NOTES: PM care provided. Turned and repositioned. Oral care provided. Safety measures observed and no acute distress noted. Will continue to monitor.
[2020-01-08] VITALS (28 sets, daily range): BP systolic 107–144; BP diastolic 45–69
[2020-01-08] MEDS: Piperacillin/Tazobactam 3.375 GM in NS 110 ML IVPB SCH ×2 (01:00→12:06)
--- NOTE | 2020-01-08 02:00 | NUR ---
NURSE NOTES: AM care provided. Soiled gowns, linens and slider changed. Turned and repositioned. Oral care provided. Safety measures observed and no acute distress noted. Will continue to monitor.
--- NOTE | 2020-01-08 05:00 | NUR ---
NURSE NOTES: Small BM noted. Soiled linens and sliders changed. Turned and repositioned. Oral care provided. Safety measures observed and no acute distress noted. Will continue to monitor.
[2020-01-08 05:18] LABS: HEMATOCRIT 28.3 % (37.0-47.0); HEMOGLOBIN 8.9 G/DL (12.0-16.0); MEAN CORPUSCULAR VOLUME 82 FL (80-99); PLATELET COUNT 143 K/UL (150-450); RED BLOOD COUNT 3.47 M/UL (4.20-5.40); RED CELL DISTRIBUTION WIDTH 16.6 % (11.6-14.8); WHITE BLOOD COUNT 17.8 K/UL (4.8-10.8)
[2020-01-08] MEDS: NovoLOG Insulin Flexpen SUBQ SCH ×4 (05:36→23:20)
[2020-01-08 05:42] LABS: ALBUMIN 2.3 G/DL (3.4-5.0); ALBUMIN/GLOBULIN RATIO 0.7 (1.0-2.7); BILIRUBIN,TOTAL 0.6 MG/DL (0.2-1.0); CALCIUM 8.6 MG/DL (8.5-10.1); CREATININE 2.9 MG/DL (0.55-1.30); POTASSIUM 3.8 MMOL/L (3.5-5.1)
[2020-01-08 05:55] LABS: PHOSPHORUS 3.6 MG/DL (2.5-4.9)
--- NOTE | 2020-01-08 07:20 | NUR ---
HAND-OFF: Report given to ALEX Thacker. Endorsed POC.
--- NOTE | 2020-01-08 07:35 | NUR ---
NURSE NOTES: LATE ENTRY: RECEIVED REPORT FROM LAEX DAVIS. PT IN BED. OBTUNDED, OPENS EYES TO PAIN. ON MONITOR AFIB, BP STABLE. INTUBATED ETT AC 16, VT 600, PEEP 5, FI02 65%. SECRETIONS THIN, ORAL CARE PROVIDED. LUNG SOUNDS DIMINISHED, RHONCHI NOTED. ABDOMEN ROUND, NON TENDER. BOWEL SOUNDS HYPOACTIVE. OGT. TUBE FEEDING AF AT 20ML/HR. GOAL IS 55. NO RESIDUALS. INCREASED TO 25ML/HR. NO BM. BLADDER NON DISTENDED. GUERRA DRAINING YELLOW URINE. SECURE AND NOT KINKED. SKIN- SEE ASSESSMENT. CAP REFILL< 3 SEC. NO JVD. PITTING EDEMA BILATERAL HANDS, +3. BILATERAL RADIAL AND PEDAL PULSES WEAK. IV ACCESS LEFT SUBCLAVIAN, TLC, PATENT. FLUIDS 1/2 NS AT 150ML/HR. PT UPPER AND LOWER EXTREMITIES FLACCID. BED ALARM ON. SIDE RAILS UP. WILL CONTINUE TP MONITOR. AIRBORNE ISOLATION.
--- NOTE | 2020-01-08 08:00 | Infectious Diseases Prog Note ---
Assessment/Plan Assessment: Asystole arrest Sepsis COVID19 pneumonia Acute hypoxic resp failure sp NRB> Bipap 100% Fio2> VDRF 100% -01/01 CXR: Vascular congestion/developing failure and bilateral patchy infiltrates, slightly worse since prior exam. Small bilateral pleural effusions.Prominent mediastinum likely due to tortuous/ectatic thoracic aorta. -12/31 CXR: Centrally predominant interstitial and airspace opacities, pulmonary edema most likely. Cardiomegaly. Fever; SP No leukocytosis Dm2 COPD HTN former smoker CAD CHF RA GERD hypothyroidism Afib [facility] resident ([facility]) Plan: - New Leukocytosis - Steroids VS new infection vs stress - Cont Zosyn #2 and Linazolid #2 - F/u repeat blood, Urine and Sp Cx -Decadron #7/10 -SP Remdesivir #5 per [facility] criteria- patient cannot provide consent; Benefits outweigh risks. - 01/07/20 Ceftriaxone #7 -12/31 SP Cefepime x1, Flagyl x1 -f/u cx -Monitor CBC/CMP, temperatures -ETT/ICU care D/w RN Thank you for consulting [facility]. Will continue to follow along with you. Subjective Allergies: Coded Allergies: DOXYCYCLINE (Verified Allergy, Unknown, 04/04/19) RIFAMPIN (Verified Allergy, Unknown, 04/04/19) AF on vent WBC 17 from 18 Cr worsening LFTs improving Non-responsive Not weaning vent yet Objective Last 24 Hour Vital Signs Date Time Temp Pulse Resp B/P (MAP) Pulse Ox O2 Delivery O2 Flow Rate FiO2 01/08/20 07:00 88 20 123/58 (79) 97 01/08/20 06:00 98.3 91 19 126/46 (72) 95 01/08/20 05:00 92 21 126/63 (84) 97 01/08/20 04:00 91 01/08/20 04:00 91 19 129/66 (87) 97 01/08/20 04:00 Mechanical Ventilator 01/08/20 04:00 65 01/08/20 03:00 85 19 65 01/08/20 03:00 90 20 128/51 (76) 97 01/08/20 02:00 90 20 131/58 (82) 97 01/08/20 01:00 90 21 124/56 (78) 97 01/08/20 00:00 98.9 89 20 134/55 (81) 97 01/08/20 00:00 Mechanical Ventilator 01/07/20 23:16 89 21 65 01/07/20 23:00 93 19 137/61 (86) 97 01/07/20 22:00 94 20 139/63 (88) 97 01/07/20 21:00 99 18 139/65 (89) 96 01/07/20 20:00 91 01/07/20 20:00 65 01/07/20 20:00 99.1 94 18 148/55 (86) 97 01/07/20 20:00 Mechanical Ventilator 01/07/20 19:21 99 19 65 01/07/20 19:00 144/60 (88) 01/07/20 18:00 93 19 134/62 (86) 95 01/07/20 17:00 91 18 135/65 (88) 96 01/07/20 16:00 65 01/07/20 16:00 95 01/07/20 16:00 99.0 95 19 131/56 (81) 96 01/07/20 16:00 Mechanical Ventilator 01/07/20 15:20 97 19 65 01/07/20 15:00 96 20 139/58 (85) 91 01/07/20 14:00 94 20 126/65 (85) 91 01/07/20 13:00 96 19 119/59 (79) 91 01/07/20 12:00 65 01/07/20 12:00 98.3 94 18 128/49 (75) 92 01/07/20 12:00 95 01/07/20 12:00 Mechanical Ventilator 01/07/20 11:15 96 19 50 01/07/20 11:00 93 22 131/59 (83) 91 01/07/20 10:25 92 01/07/20 10:00 94 19 125/51 (75) 91 01/07/20 09:00 92 21 140/56 (84) 91 01/07/20 08:00 50 01/07/20 08:00 98.1 93 19 131/48 (75) 92 01/07/20 08:00 Mechanical Ventilator 01/07/20 08:00 98 Height (Feet): 5 Height (Inches): 2.00 Weight (Pounds): 155 Gen: NAD in bed HEENT: NCAT, ETT Pulm: BL chest rise Abd: Soft, NTND Ext: No c/c/e Neuro: Sedated Microbiology Date/Time Source Procedure Growth Status 01/05/20 12:00 Sputum Gram Stain - Final Complete 01/05/20 12:00 Sputum Sputum Culture - Final NORMAL UPPER RESPIRATORY SAUL PRESENT Complete Laboratory Tests Test 01/07/20 12:36 01/07/20 17:15 01/08/20 04:15 POC Whole Blood Glucose 116 MG/DL (74-106) H 128 MG/DL (74-106) H White Blood Count 17.8 K/UL (4.8-10.8) H Red Blood Count 3.47 M/UL (4.20-5.40) L Hemoglobin 8.9 G/DL (12.0-16.0) L Hematocrit 28.3 % (37.0-47.0) L Mean Corpuscular Volume 82 FL (80-99) Mean Corpuscular Hemoglobin 25.6 PG (27.0-31.0) L Mean Corpuscular Hemoglobin Concent 31.4 G/DL (32.0-36.0) L Red Cell Distribution Width 16.6 % (11.6-14.8) H Platelet Count 143 K/UL (150-450) L Mean Platelet Volume 9.5 FL (6.5-10.1) Neutrophils (%) (Auto) % (45.0-75.0) Lymphocytes (%) (Auto) % (20.0-45.0) Monocytes (%) (Auto) % (1.0-10.0) Eosinophils (%) (Auto) % (0.0-3.0) Basophils (%) (Auto) % (0.0-2.0) Neutrophils % (Manual) Pending Lymphocytes % (Manual) Pending Platelet Estimate Pending Platelet Morphology Pending Sodium Level 133 MMOL/L (136-145) L Potassium Level 3.8 MMOL/L (3.5-5.1) Chloride Level 98 MMOL/L (98-107) Carbon Dioxide Level 23 MMOL/L (21-32) Anion Gap 12 mmol/L (5-15) Blood Urea Nitrogen 89 mg/dL (7-18) H Creatinine 2.9 MG/DL (0.55-1.30) H Estimat Glomerular Filtration Rate 15.4 mL/min (>60) Glucose Level 151 MG/DL (74-106) H Uric Acid 10.9 MG/DL (2.6-7.2) H Calcium Level 8.6 MG/DL (8.5-10.1) Phosphorus Level 3.6 MG/DL (2.5-4.9) Magnesium Level 1.9 MG/DL (1.8-2.4) Total Bilirubin 0.6 MG/DL (0.2-1.0) Aspartate Amino Transf (AST/SGOT) 277 U/L (15-37) H Alanine Aminotransferase (ALT/SGPT) 755 U/L (12-78) H Alkaline Phosphatase 170 U/L (46-116) H Pro-B-Type Natriuretic Peptide 34328 pg/mL (0-125) H Total Protein 5.7 G/DL (6.4-8.2) L Albumin 2.3 G/DL (3.4-5.0) L Globulin 3.4 g/dL Albumin/Globulin Ratio 0.7 (1.0-2.7) L Current Medications Medications (Trade) Dose Ordered Sig/Brett Route PRN Reason Start Time Stop Time Status Last Admin Dose Admin Acetaminophen (Tylenol) 650 mg Q4H PRN ORAL FEVER 01/01/20 07:00 01/31/20 06:59 01/07/20 05:05 Acetaminophen (Tylenol) 650 mg Q4H PRN RECTAL Temp >100.5 01/03/20 09:30 02/02/20 09:29 01/03/20 12:18 Albuterol/ Ipratropium (Combivent Respimat) 1 puff Q4H PRN INH Shortness of Breath 01/05/20 20:00 02/04/20 19:59 Allopurinol (allopurinoL) 300 mg DAILY NG 01/07/20 10:45 02/06/20 10:44 01/07/20 13:49 Chlorhexidine Gluconate (Silvia-Hex 2%) 1 applic DAILY@2000 TOPIC 01/07/20 20:00 04/06/20 19:59 01/07/20 20:05 Dexamethasone (Decadron) 4 mg DAILY ORAL 01/01/20 09:00 01/11/20 10:00 01/07/20 08:39 Dextrose (Dextrose 50%) 25 ml Q30M PRN IV Hypoglycemia 01/01/20 08:45 03/31/20 08:44 Dextrose (Dextrose 50%) 50 ml Q30M PRN IV Hypoglycemia 01/01/20 08:45 03/31/20 08:44 Diltiazem HCl 125 ml @ 0 mls/hr Q24H IVPB 01/07/20 17:00 01/08/20 16:59 01/07/20 23:04 Diltiazem HCl (Cardizem) 15 mg Q12H PRN IVP For High Blood Pressure 01/03/20 07:00 02/02/20 06:59 Heparin Sodium (Porcine) (Heparin 5000 units/ml) 5,000 units EVERY 12 HOURS SUBQ 01/01/20 09:00 02/15/20 08:59 01/07/20 20:06 Insulin Aspart (NovoLOG) BEFORE MEALS AND HS SUBQ 01/01/20 11:30 03/31/20 11:29 01/08/20 05:36 Linezolid 300 ml @ 300 mls/hr Q12HR IVPB 01/07/20 21:00 01/14/20 20:59 01/07/20 20:08 Lorazepam (Ativan 2mg/ml 1ml) 2 mg Q4H PRN IV For Anxiety 01/05/20 08:45 01/12/20 08:44 Ondansetron HCl (Zofran) 4 mg Q6H PRN IVP Nausea & Vomiting 01/01/20 07:00 01/31/20 06:59 Pantoprazole (Protonix) 40 mg Q12HR IV 01/05/20 21:00 02/04/20 08:59 01/07/20 20:05 Piperacillin Sod/ Tazobactam Sod 3.375 gm/Sodium Chloride 110 ml @ 27.5 mls/hr Q12H IVPB 01/07/20 13:00 01/14/20 12:59 01/08/20 01:00 Sodium Chloride 1,000 ml @ 150 mls/hr Q6H40M IV 01/06/20 08:15 02/05/20 08:14 01/08/20 06:14 Jerilyn Abel M.D. Jan 08, 2020 08:00
[2020-01-08] MEDS: Pantoprazole Inj IV SCH ×2 (08:35→20:15)
[2020-01-08] MEDS: Heparin 5000 units/ml inj SUBQ SCH ×2 (08:36→20:17)
--- NOTE | 2020-01-08 08:50 | NUR ---
NURSE NOTES: LATE ENTRY: CHANGE IN FLUIDS TO NOW HANGING NS AT 100ML/HR. ALBUMIN 500ML, WIDE. OPEN.
--- NOTE | 2020-01-08 08:55 | Diagnostic Imaging Report ---
EXAM: XR Chest, 1 View CLINICAL HISTORY: DYSPNEA TECHNIQUE: Frontal view of the chest. COMPARISON: Chest radiograph January 07, 2020. FINDINGS/IMPRESSION: Endotracheal tube which terminates 3.5 cm above the garrett. Left subclavian central venous catheter terminates in the superior vena cava. Enteric feeding tube terminates in the stomach. Mild advancement is recommended. EKG leads overlie the patient. Patchy bilateral airspace opacities, suspicious for infiltrate. THESE HAVE IMPROVED MILDLY WHEN COMPARED TO 2019. CONTINUED FOLLOW-UP RECOMMENDED. No pneumothorax. Cardiomegaly. Calcified aorta.
--- NOTE | 2020-01-08 09:24 | Nephrology Progress Note ---
Assessment/Plan Problem List: (1) BORIS (acute kidney injury) (2) 2019 novel coronavirus detected (3) Hypothyroidism (4) Diabetes mellitus (5) Atrial fibrillation (6) Shock liver Assessment 85-year-old female admitted 5 days ago, at the time serum creatinine was 0.9 and today the serum creatinine is 1.4, most likely BORIS Hypernatremia secondary to free water deficit Prerenal azotemia COVID-19 virus detected Acute on chronic systolic congestive heart failure Atrial fibrillation Diabetes mellitus Hypothyroidism Hypertension Acute on chronic respiratory failure Plan January 07: Labs reviewed. Serum creatinine robby to 2.9. Liver enzymes are improving. Patient off pressors. Patient full code. Patient intubated on ventilator. Continue to monitor renal parameters. IV fluid changed to normal saline. Continue per consultants. Anemia work-up initiated, iron panel B12 and folate level ordered. January 06: Labs reviewed. Serum creatinine up to 2.6. Medications reviewed. Continue to follow renal parameters and electrolytes. Continue to monitor liver enzymes. Allopurinol for high uric acid given. Discussed with RN. January 05: Blood pressure stable off pressors. Continue IV fluids. Monitor renal parameters. Monitor liver function tests. Hold oral Synthroid at this time. Continue treatment for sepsis and COVID-19 infection IV fluids Keep the blood pressure over 100 systolic Monitor renal parameters and electrolytes Monitor liver function tests Avoid nephrotoxic's as possible Urine studies Digoxin level Thyroid function tests Per orders Subjective ROS Limited/Unobtainable: Yes Objective Objective Last 24 Hour Vital Signs Date Time Temp Pulse Resp B/P (MAP) Pulse Ox O2 Delivery O2 Flow Rate FiO2 01/08/20 08:00 88 19 120/45 (70) 96 01/08/20 08:00 65 01/08/20 07:00 88 20 123/58 (79) 97 01/08/20 06:00 98.3 91 19 126/46 (72) 95 01/08/20 05:00 92 21 126/63 (84) 97 01/08/20 04:00 91 01/08/20 04:00 91 19 129/66 (87) 97 01/08/20 04:00 Mechanical Ventilator 01/08/20 04:00 65 01/08/20 03:00 85 19 65 01/08/20 03:00 90 20 128/51 (76) 97 01/08/20 02:00 90 20 131/58 (82) 97 01/08/20 01:00 90 21 124/56 (78) 97 01/08/20 00:00 98.9 89 20 134/55 (81) 97 01/08/20 00:00 Mechanical Ventilator 01/07/20 23:16 89 21 65 01/07/20 23:00 93 19 137/61 (86) 97 01/07/20 22:00 94 20 139/63 (88) 97 01/07/20 21:00 99 18 139/65 (89) 96 01/07/20 20:00 91 01/07/20 20:00 65 01/07/20 20:00 99.1 94 18 148/55 (86) 97 01/07/20 20:00 Mechanical Ventilator 01/07/20 19:21 99 19 65 01/07/20 19:00 144/60 (88) 01/07/20 18:00 93 19 134/62 (86) 95 01/07/20 17:00 91 18 135/65 (88) 96 01/07/20 16:00 65 01/07/20 16:00 95 01/07/20 16:00 99.0 95 19 131/56 (81) 96 01/07/20 16:00 Mechanical Ventilator 01/07/20 15:20 97 19 65 01/07/20 15:00 96 20 139/58 (85) 91 01/07/20 14:00 94 20 126/65 (85) 91 01/07/20 13:00 96 19 119/59 (79) 91 01/07/20 12:00 65 01/07/20 12:00 98.3 94 18 128/49 (75) 92 01/07/20 12:00 95 01/07/20 12:00 Mechanical Ventilator 01/07/20 11:15 96 19 50 01/07/20 11:00 93 22 131/59 (83) 91 01/07/20 10:25 92 01/07/20 10:00 94 19 125/51 (75) 91 Intake and Output 01/07/20 01/08/20 19:00 07:00 Intake Total 2180.0 ml 2054.83 ml Output Total 760 ml 330 ml Balance 1420.0 ml 1724.83 ml Free Water 30 ml IV Total 2120.0 ml 1784.83 ml Tube Feeding 60 ml 240 ml Output Urine Total 760 ml 330 ml Laboratory Tests 01/07/20 12:36: POC Whole Blood Glucose 116H 01/07/20 17:15: POC Whole Blood Glucose 128H 01/08/20 04:15: White Blood Count 17.8H, Red Blood Count 3.47L, Hemoglobin 8.9L, Hematocrit 28 .3L, Mean Corpuscular Volume 82, Mean Corpuscular Hemoglobin 25.6L, Mean Corpuscular Hemoglobin Concent 31.4L, Red Cell Distribution Width 16.6H, Platelet Count 143L, Mean Platelet Volume 9.5, Neutrophils (%) (Auto) , Lymphocytes (%) (Auto) , Monocytes (%) (Auto) , Eosinophils (%) (Auto) , Basophils (%) (Auto) , Differential Total Cells Counted 100, Neutrophils % (Manual) 89H, Lymphocytes % (Manual) 5L, Monocytes % (Manual) 5, Eosinophils % (Manual) 0, Basophils % (Manual) 0, Band Neutrophils 1, Nucleated Red Blood Cells 1, Platelet Estimate DecreasedL, Platelet Morphology Normal, Hypochromasia 2+, Anisocytosis 1+, Sodium Level 133L, Potassium Level 3.8, Chloride Level 98, Carbon Dioxide Level 23, Anion Gap 12, Blood Urea Nitrogen 89H, Creatinine 2.9H, Estimat Glomerular Filtration Rate 15.4, Glucose Level 151H, Uric Acid 10.9H, Calcium Level 8.6, Phosphorus Level 3.6, Magnesium Level 1.9, Total Bilirubin 0.6, Aspartate Amino Transf (AST/SGOT) 277H, Alanine Aminotransferase (ALT/SGPT) 755H, Alkaline Phosphatase 170H, Pro-B-Type Natriuretic Peptide 93847B, Total Protein 5.7L, Albumin 2.3L, Globulin 3.4, Albumin/Globulin Ratio 0.7L Height (Feet): 5 Height (Inches): 2.00 Weight (Pounds): 155 General Appearance: no apparent distress EENT: other - Intubated on ventilator Cardiovascular: tachycardia Respiratory/Chest: decreased breath sounds Abdomen: distended Naun Mandel MD Jan 08, 2020 09:24
--- NOTE | 2020-01-08 09:40 | NUR ---
NURSE NOTES: MD. MAYES HERE TO SEE PT. AWARE OF LABS THIS AM. WILL ADMINISTER ALBUMIN AND CHANGE MAINTENANCE FLUIDS TO NS AT 100ML/HR. BUN/CRE 130/2.0. INFORMED ABOUT OUTPUT 25-35 M/HR. NO NEW ORDERS AT THIS TIME.
--- NOTE | 2020-01-08 10:50 | NUR ---
NURSE NOTES: MD. KHALIL, HERE TO SEE PT. WAS INFORMED ABOUT TEMP 99.1 AX. WBC TRENDING DOWN 17.8. BUN/CRE 89/2.9. NO NEW ORDERS.
--- NOTE | 2020-01-08 12:00 | Pulmonolgy Critical Care Note ---
Critical Care - Asmt/Plan Assessment/Plan: ASSESSMENT Status post CP arrest 2 to asystole ( found to remove BiPAP) COVID-19 pneumonia Acute hypoxemic hypercapnic respiratory failure on chronic respiratory failure Acute on chronic diastolic congestive heart failure Acute kidney injury Shock liver A. fib with RVR Severe pulmonary hypertension Elevated troponin , likely due to CPR COPD Former smoker Diabetes mellitus Hypothyroidism History of hypertension PLAN OF CARE ICU vent support pulm toilet fup with ABG and CXR, titrate settings as needed on steroids for 10 days; s/p Remdesivir x 5 days monitor inflammatory markers DVT prophylaxis empiric abx as per ID due to leukocytosis BCX NGT SCX NGT leuk possible due to steroids? Echo with pEF 65% and RVSP 96% on Cardizem drip elevated troponin likely due to CPR as per cardio monitor renal parameters lytes, correct electrolytes as needed fup with nephro recommendation GI prophylaxis LFT trending down , likely shock liver BS management with SSI nutritional support aspiration precautions case discussed and evaluated by supervising physician Critical Care - Objective Last 24 Hour Vital Signs Date Time Temp Pulse Resp B/P (MAP) Pulse Ox O2 Delivery O2 Flow Rate FiO2 01/08/20 11:00 92 21 129/55 (79) 96 01/08/20 11:00 97 21 129/55 (79) 96 01/08/20 10:30 95 23 133/47 (75) 96 01/08/20 10:00 90 18 115/49 (71) 96 01/08/20 09:00 90 18 135/57 (83) 95 01/08/20 08:00 99.1 88 19 120/45 (70) 96 01/08/20 08:00 Mechanical Ventilator 01/08/20 08:00 86 01/08/20 08:00 65 01/08/20 07:00 88 20 123/58 (79) 97 01/08/20 06:00 98.3 91 19 126/46 (72) 95 01/08/20 05:00 92 21 126/63 (84) 97 01/08/20 04:00 91 01/08/20 04:00 91 19 129/66 (87) 97 01/08/20 04:00 Mechanical Ventilator 01/08/20 04:00 65 01/08/20 03:00 85 19 65 01/08/20 03:00 90 20 128/51 (76) 97 01/08/20 02:00 90 20 131/58 (82) 97 01/08/20 01:00 90 21 124/56 (78) 97 01/08/20 00:00 98.9 89 20 134/55 (81) 97 01/08/20 00:00 Mechanical Ventilator 01/07/20 23:16 89 21 65 01/07/20 23:00 93 19 137/61 (86) 97 01/07/20 22:00 94 20 139/63 (88) 97 01/07/20 21:00 99 18 139/65 (89) 96 01/07/20 20:00 91 01/07/20 20:00 65 01/07/20 20:00 99.1 94 18 148/55 (86) 97 01/07/20 20:00 Mechanical Ventilator 01/07/20 19:21 99 19 65 01/07/20 19:00 144/60 (88) 01/07/20 18:00 93 19 134/62 (86) 95 01/07/20 17:00 91 18 135/65 (88) 96 01/07/20 16:00 65 01/07/20 16:00 95 01/07/20 16:00 99.0 95 19 131/56 (81) 96 01/07/20 16:00 Mechanical Ventilator 01/07/20 15:20 97 19 65 01/07/20 15:00 96 20 139/58 (85) 91 01/07/20 14:00 94 20 126/65 (85) 91 01/07/20 13:00 96 19 119/59 (79) 91 01/07/20 12:00 65 01/07/20 12:00 98.3 94 18 128/49 (75) 92 01/07/20 12:00 95 01/07/20 12:00 Mechanical Ventilator Status: sedated, other - intubated Condition: critical HEENT: atraumatic, normocephalic, other - OP with ET in place, intact Lungs: rhonchi - few scattered rhonchi Heart: HR/BP stable - A fib on tele Abdomen: soft, non-tender, active bowel sounds, feeding tube - NGT Extremities: other - trace edema BLE Micro: Microbiology Date/Time Source Procedure Growth Status 01/05/20 12:00 Sputum Gram Stain - Final Complete 01/05/20 12:00 Sputum Sputum Culture - Final NORMAL UPPER RESPIRATORY SAUL PRESENT Complete Accucheck: 148 Critical Care - Subjective ROS Limited/Unobtainable: Yes Interval Events: intubated on isolation leukocytosis; no fevers still on Cardizem gtt , weaning, rate now controlled overall Condition: critical IV Access: central - L subclavian CL TL intact EKG Rhythm: Atrial Fibrillation FI02: 65 Vent Support Breath Rate: 16 Vent Support Mode: AC Vent Tidal Volume: 600 Sputum Amount: Small PEEP: 5.0 PIP: 33 Fluids: NS at 100 cc/hr Drips: Cardizem 2.5 mg/hr Tube Feeding Amount: 25 I&O: Intake and Output 01/07/20 01/08/20 19:00 07:00 Intake Total 2180.0 ml 2054.83 ml Output Total 760 ml 330 ml Balance 1420.0 ml 1724.83 ml Free Water 30 ml IV Total 2120.0 ml 1784.83 ml Tube Feeding 60 ml 240 ml Output Urine Total 760 ml 330 ml CXR: Patchy bilateral airspace opacities, suspicious for infiltrate. THESE HAVE IMPROVED MILDLY WHEN COMPARED TO 2019. No pneumothorax. Cardiomegaly. ET-Tube: 7.5 ET Position: 23 Yelitza Marmolejo [employer] Jan 08, 2020 12:00
--- NOTE | 2020-01-08 12:30 | NUR ---
NURSE NOTES: LATE ENTRY: PT IN BED. OBTUNDED, OPENS EYES TO PAIN. ON MONITOR AFIB, INTUBATED ETT AC 16, VT 600, PEEP 5, FI02 65%. ORAL CARE PROVIDED. BOWEL SOUNDS HYPOACTIVE. TUBE FEEDING AF AT 30ML/HR. GOAL IS 55. NO RESIDUALS. NO BM. GUERRA DRAINING YELLOW URINE. PITTING EDEMA BILATERAL HANDS, +3. BILATERAL RADIAL AND PEDAL PULSES WEAK. IV ACCESS LEFT SUBCLAVIAN, TLC, PATENT. FLUIDS NS AT 100ML/HR. PT UPPER AND LOWER EXTREMITIES FLACCID. BED ALARM ON. SIDE RAILS UP. WILL CONTINUE TP MONITOR.
--- NOTE | 2020-01-08 13:18 | Internal Med Progress Note ---
Subjective Date of Service: Jan 08, 2020 Physician Name GinHarris Attending Physician Fernando Peguero MD Current Medications Medications (Trade) Dose Ordered Sig/Brett Route PRN Reason Start Time Stop Time Status Last Admin Dose Admin Acetaminophen (Tylenol) 650 mg Q4H PRN ORAL FEVER 01/01/20 07:00 01/31/20 06:59 01/07/20 05:05 Acetaminophen (Tylenol) 650 mg Q4H PRN RECTAL Temp >100.5 01/03/20 09:30 02/02/20 09:29 01/03/20 12:18 Albuterol/ Ipratropium (Combivent Respimat) 1 puff Q4H PRN INH Shortness of Breath 01/05/20 20:00 02/04/20 19:59 Allopurinol (allopurinoL) 300 mg DAILY NG 01/07/20 10:45 02/06/20 10:44 01/08/20 08:36 Chlorhexidine Gluconate (Silvia-Hex 2%) 1 applic DAILY@2000 TOPIC 01/07/20 20:00 04/06/20 19:59 01/07/20 20:05 Dexamethasone (Decadron) 4 mg DAILY ORAL 01/01/20 09:00 01/11/20 10:00 01/08/20 08:36 Dextrose (Dextrose 50%) 25 ml Q30M PRN IV Hypoglycemia 01/01/20 08:45 03/31/20 08:44 Dextrose (Dextrose 50%) 50 ml Q30M PRN IV Hypoglycemia 01/01/20 08:45 03/31/20 08:44 Diltiazem HCl 125 ml @ 0 mls/hr Q24H IVPB 01/07/20 17:00 01/08/20 16:59 01/07/20 23:04 Diltiazem HCl (Cardizem) 15 mg Q12H PRN IVP For High Blood Pressure 01/03/20 07:00 02/02/20 06:59 Heparin Sodium (Porcine) (Heparin 5000 units/ml) 5,000 units EVERY 12 HOURS SUBQ 01/01/20 09:00 02/15/20 08:59 01/08/20 08:36 Insulin Aspart (NovoLOG) BEFORE MEALS AND HS SUBQ 01/01/20 11:30 03/31/20 11:29 01/08/20 12:30 Linezolid 300 ml @ 300 mls/hr Q12HR IVPB 01/07/20 21:00 01/14/20 20:59 01/08/20 08:35 Lorazepam (Ativan 2mg/ml 1ml) 2 mg Q4H PRN IV For Anxiety 01/05/20 08:45 01/12/20 08:44 Ondansetron HCl (Zofran) 4 mg Q6H PRN IVP Nausea & Vomiting 01/01/20 07:00 01/31/20 06:59 Pantoprazole (Protonix) 40 mg Q12HR IV 01/05/20 21:00 02/04/20 08:59 01/08/20 08:35 Piperacillin Sod/ Tazobactam Sod 3.375 gm/Sodium Chloride 110 ml @ 27.5 mls/hr Q12H IVPB 01/07/20 13:00 01/14/20 12:59 01/08/20 12:06 Sodium Chloride 1,000 ml @ 100 mls/hr Q10H IV 01/08/20 08:15 02/07/20 08:14 01/08/20 08:35 Allergies: Coded Allergies: DOXYCYCLINE (Verified Allergy, Unknown, 04/04/19) RIFAMPIN (Verified Allergy, Unknown, 04/04/19) ROS Limited/Unobtainable: Yes Subjective 84 YO F admitted with hypoxia. Now COVID 19 pneumonia. Cover for Int med-DR Peguero. ICU. Intubated and sedated Objective Last Vital Signs Date Time Temp Pulse Resp B/P (MAP) Pulse Ox O2 Delivery O2 Flow Rate FiO2 01/08/20 11:34 99 23 65 01/08/20 11:00 129/55 (79) 96 01/08/20 08:00 99.1 01/08/20 08:00 Mechanical Ventilator 01/01/20 04:25 10.0 Laboratory Tests Test 01/07/20 17:15 01/08/20 04:15 01/08/20 12:23 POC Whole Blood Glucose 128 MG/DL (74-106) H 207 MG/DL (74-106) H White Blood Count 17.8 K/UL (4.8-10.8) H Red Blood Count 3.47 M/UL (4.20-5.40) L Hemoglobin 8.9 G/DL (12.0-16.0) L Hematocrit 28.3 % (37.0-47.0) L Mean Corpuscular Volume 82 FL (80-99) Mean Corpuscular Hemoglobin 25.6 PG (27.0-31.0) L Mean Corpuscular Hemoglobin Concent 31.4 G/DL (32.0-36.0) L Red Cell Distribution Width 16.6 % (11.6-14.8) H Platelet Count 143 K/UL (150-450) L Mean Platelet Volume 9.5 FL (6.5-10.1) Neutrophils (%) (Auto) % (45.0-75.0) Lymphocytes (%) (Auto) % (20.0-45.0) Monocytes (%) (Auto) % (1.0-10.0) Eosinophils (%) (Auto) % (0.0-3.0) Basophils (%) (Auto) % (0.0-2.0) Differential Total Cells Counted 100 Neutrophils % (Manual) 89 % (45-75) H Lymphocytes % (Manual) 5 % (20-45) L Monocytes % (Manual) 5 % (1-10) Eosinophils % (Manual) 0 % (0-3) Basophils % (Manual) 0 % (0-2) Band Neutrophils 1 % (0-8) Nucleated Red Blood Cells 1 /100 WBC Platelet Estimate Decreased L Platelet Morphology Normal Hypochromasia 2+ Anisocytosis 1+ Sodium Level 133 MMOL/L (136-145) L Potassium Level 3.8 MMOL/L (3.5-5.1) Chloride Level 98 MMOL/L (98-107) Carbon Dioxide Level 23 MMOL/L (21-32) Anion Gap 12 mmol/L (5-15) Blood Urea Nitrogen 89 mg/dL (7-18) H Creatinine 2.9 MG/DL (0.55-1.30) H Estimat Glomerular Filtration Rate 15.4 mL/min (>60) Glucose Level 151 MG/DL (74-106) H Uric Acid 10.9 MG/DL (2.6-7.2) H Calcium Level 8.6 MG/DL (8.5-10.1) Phosphorus Level 3.6 MG/DL (2.5-4.9) Magnesium Level 1.9 MG/DL (1.8-2.4) Total Bilirubin 0.6 MG/DL (0.2-1.0) Aspartate Amino Transf (AST/SGOT) 277 U/L (15-37) H Alanine Aminotransferase (ALT/SGPT) 755 U/L (12-78) H Alkaline Phosphatase 170 U/L (46-116) H Pro-B-Type Natriuretic Peptide 79961 pg/mL (0-125) H Total Protein 5.7 G/DL (6.4-8.2) L Albumin 2.3 G/DL (3.4-5.0) L Globulin 3.4 g/dL Albumin/Globulin Ratio 0.7 (1.0-2.7) L Intake and Output 01/07/20 01/08/20 19:00 07:00 Intake Total 2180.0 ml 2054.83 ml Output Total 760 ml 330 ml Balance 1420.0 ml 1724.83 ml Free Water 30 ml IV Total 2120.0 ml 1784.83 ml Tube Feeding 60 ml 240 ml Output Urine Total 760 ml 330 ml Objective PHYSICAL EXAMINATION: GENERAL: The patient is a well-developed and well-nourished female, in moderate respiratory distress. HEENT: Eyes, pupils equal and responsive to light and accommodation. Extraocular movements are intact. NECK: Supple without lymphadenopathy. CHEST: Mech vent; Decreased breath sounds at bilateral bases with crackles. Otherwise, without wheezes. CARDIOVASCULAR: Regular rhythm and rate. S1, S2 normal without murmurs, rubs, or gallops. ABDOMEN: Soft, nontender, and nondistended. Positive bowel sounds. No evidence of hepatosplenomegaly. Currently, no rebound or guarding noted. EXTREMITIES: Negative for clubbing, cyanosis, or edema. RECTAL/GENITAL: Not performed. NEUROLOGIC: Cranial nerves II through XII are grossly intact without focal deficits. Assessment/Plan Assessment/Plan ASSESSMENT: This is an 84-year-old female with: 1. COVID-19 positive. 2. Bilateral pneumonia. 3. Hypertension. 4. Atrial fibrillation. 5. Chronic obstructive pulmonary disease. 6. Coronary artery disease. 7. Congestive heart failure. 8. Diabetes type 2. 9. Hypothyroidism. 10. Hypercholesterolemia. 11. Rheumatoid arthritis. 12. Gastroesophageal reflux disease. 13. Respiratory failure 14. S/P cardiac arrest 01/05/20 TREATMENT: 1. COVID-19 positive/pneumonia. 1. Pulmonary/critical care=Dr. Ann-Marie Graves. 2. Hypertension. Continue hydralazine as above. 3. Atrial fibrillation. Continue digoxin as above. 4. Chronic obstructive pulmonary disease. As above, a Pulmonary consultation has been obtained with Dr. Ann-Marie Graves. The patient is currently on albuterol nebulized q.4h. p..r.n. 5. Coronary disease/congestive heart failure. An echocardiogram is pending. A Cardiology consultation has been obtained with Dr. Gaming. 6. Diabetes type 2. NovoLog sliding scale has been instituted. 7. Hypothyroidism. Continue Synthroid as above. 8. Hypercholesterolemia. Continue atorvastatin as above. 9. Rheumatoid arthritis. 10. Gastroesophageal reflux disease. Continue Protonix as above. 11. Continue mech vent per pulmonary 12. ABX=zosyn and zyvox 13. CODE STATUS: Full code 14. DVT prophylaxis: Heparin subcu. Harris Greenfield MD Jan 08, 2020 13:18
--- NOTE | 2020-01-08 14:16 | NUR ---
CASE MANAGEMENT:REVIEW 01/08/20 SI: COVID PNA. INTUBATED 99.6 108 22 135/58 97% ON VENT SUPPORT W/65% FIO2 WBC+17.8 H/H-8.9/28.3 BUN+89 CR+2.9 IS: IV LINEZOLID Q12 IV ZOSYN Q12 IV ROCEPHIN Q24 IVF@150/HR DECADRON NG QD HEPARIN SQ Q12 : ICU STATUS DCP: FROM [facility]
--- NOTE | 2020-01-08 17:50 | Cardiology Progress Note ---
Assessment/Plan Assessment/Plan continue respiratory support, the patient is post asystole, her a fib rate is controlled Subjective Subjective the patient is on Bipap, she is very lethargic, no communication Objective Last 24 Hour Vital Signs Date Time Temp Pulse Resp B/P (MAP) Pulse Ox O2 Delivery O2 Flow Rate FiO2 01/08/20 17:00 82 21 132/55 (80) 97 01/08/20 16:00 65 01/08/20 16:00 Mechanical Ventilator 01/08/20 16:00 92 01/08/20 16:00 89 22 130/56 (80) 94 01/08/20 15:30 75 18 123/61 (81) 95 01/08/20 15:00 84 21 131/59 (83) 95 01/08/20 14:00 94 21 138/61 (86) 97 01/08/20 13:30 93 21 129/61 (83) 96 01/08/20 13:00 88 20 129/65 (86) 95 01/08/20 12:30 93 22 135/66 (89) 96 01/08/20 12:00 65 01/08/20 12:00 99.6 93 22 135/58 (83) 97 01/08/20 12:00 Mechanical Ventilator 01/08/20 12:00 108 01/08/20 11:34 99 23 65 01/08/20 11:00 92 21 129/55 (79) 96 01/08/20 11:00 97 21 129/55 (79) 96 01/08/20 10:30 95 23 133/47 (75) 96 01/08/20 10:00 90 18 115/49 (71) 96 01/08/20 09:00 90 18 135/57 (83) 95 01/08/20 08:00 99.1 88 19 120/45 (70) 96 01/08/20 08:00 Mechanical Ventilator 01/08/20 08:00 86 01/08/20 08:00 65 01/08/20 07:30 91 21 65 01/08/20 07:00 88 20 123/58 (79) 97 01/08/20 06:00 98.3 91 19 126/46 (72) 95 01/08/20 05:00 92 21 126/63 (84) 97 01/08/20 04:00 91 01/08/20 04:00 91 19 129/66 (87) 97 01/08/20 04:00 Mechanical Ventilator 01/08/20 04:00 65 01/08/20 03:00 85 19 65 01/08/20 03:00 90 20 128/51 (76) 97 01/08/20 02:00 90 20 131/58 (82) 97 01/08/20 01:00 90 21 124/56 (78) 97 01/08/20 00:00 98.9 89 20 134/55 (81) 97 01/08/20 00:00 Mechanical Ventilator 01/07/20 23:16 89 21 65 01/07/20 23:00 93 19 137/61 (86) 97 01/07/20 22:00 94 20 139/63 (88) 97 01/07/20 21:00 99 18 139/65 (89) 96 01/07/20 20:00 91 01/07/20 20:00 65 01/07/20 20:00 99.1 94 18 148/55 (86) 97 01/07/20 20:00 Mechanical Ventilator 01/07/20 19:21 99 19 65 01/07/20 19:00 144/60 (88) 01/07/20 18:00 93 19 134/62 (86) 95 General Appearance: lethargic, other - on Bipap Rhythm: Afib Cardiovascular: tachycardia Respiratory/Chest: crackles/rales Abdomen: soft Extremities: normal inspection Intake and Output 01/07/20 01/08/20 19:00 07:00 Intake Total 2180.0 ml 2054.83 ml Output Total 760 ml 330 ml Balance 1420.0 ml 1724.83 ml Free Water 30 ml IV Total 2120.0 ml 1784.83 ml Tube Feeding 60 ml 240 ml Output Urine Total 760 ml 330 ml Laboratory Tests Test 01/08/20 04:15 01/08/20 12:23 White Blood Count 17.8 K/UL (4.8-10.8) H Red Blood Count 3.47 M/UL (4.20-5.40) L Hemoglobin 8.9 G/DL (12.0-16.0) L Hematocrit 28.3 % (37.0-47.0) L Mean Corpuscular Volume 82 FL (80-99) Mean Corpuscular Hemoglobin 25.6 PG (27.0-31.0) L Mean Corpuscular Hemoglobin Concent 31.4 G/DL (32.0-36.0) L Red Cell Distribution Width 16.6 % (11.6-14.8) H Platelet Count 143 K/UL (150-450) L Mean Platelet Volume 9.5 FL (6.5-10.1) Neutrophils (%) (Auto) % (45.0-75.0) Lymphocytes (%) (Auto) % (20.0-45.0) Monocytes (%) (Auto) % (1.0-10.0) Eosinophils (%) (Auto) % (0.0-3.0) Basophils (%) (Auto) % (0.0-2.0) Differential Total Cells Counted 100 Neutrophils % (Manual) 89 % (45-75) H Lymphocytes % (Manual) 5 % (20-45) L Monocytes % (Manual) 5 % (1-10) Eosinophils % (Manual) 0 % (0-3) Basophils % (Manual) 0 % (0-2) Band Neutrophils 1 % (0-8) Nucleated Red Blood Cells 1 /100 WBC Platelet Estimate Decreased L Platelet Morphology Normal Hypochromasia 2+ Anisocytosis 1+ Sodium Level 133 MMOL/L (136-145) L Potassium Level 3.8 MMOL/L (3.5-5.1) Chloride Level 98 MMOL/L (98-107) Carbon Dioxide Level 23 MMOL/L (21-32) Anion Gap 12 mmol/L (5-15) Blood Urea Nitrogen 89 mg/dL (7-18) H Creatinine 2.9 MG/DL (0.55-1.30) H Estimat Glomerular Filtration Rate 15.4 mL/min (>60) Glucose Level 151 MG/DL (74-106) H Uric Acid 10.9 MG/DL (2.6-7.2) H Calcium Level 8.6 MG/DL (8.5-10.1) Phosphorus Level 3.6 MG/DL (2.5-4.9) Magnesium Level 1.9 MG/DL (1.8-2.4) Total Bilirubin 0.6 MG/DL (0.2-1.0) Aspartate Amino Transf (AST/SGOT) 277 U/L (15-37) H Alanine Aminotransferase (ALT/SGPT) 755 U/L (12-78) H Alkaline Phosphatase 170 U/L (46-116) H Pro-B-Type Natriuretic Peptide 85449 pg/mL (0-125) H Total Protein 5.7 G/DL (6.4-8.2) L Albumin 2.3 G/DL (3.4-5.0) L Globulin 3.4 g/dL Albumin/Globulin Ratio 0.7 (1.0-2.7) L POC Whole Blood Glucose 207 MG/DL (74-106) H Nasra Yeung MD Jan 08, 2020 17:50
--- NOTE | 2020-01-08 17:59 | NUR ---
NURSE NOTES: LATE ENTRY: CARDIZEM DRIP STOPPED. HR RANGING IN 90'S. BP STABLE.
--- NOTE | 2020-01-08 18:34 | NUR ---
NURSE NOTES: PT CLEANED AND REPOSITION. ORAL CARE PROVIDED, SUCTIONED. I/O COLLECTED. LINEN CHANGED. HOB >30. TUBE FEEDING RUNNING. R.T REPLACED ANCHOR FAST. IV PATENT. MEDICATION ADMINISTERED. ACCU CHK COMPLETED AND COVERAGE GIVEN.
--- NOTE | 2020-01-08 19:15 | NUR ---
NURSE NOTES: Received patient and report from ALEX Thacker. Patient is observed resting in bed and remains obtunded. No pain noted upon assessment. Pt is currently orally intubated ett 7.5 noted to be 23@ lip and appears to be tolerating current vent settings well. Vent settings as follows: AC 16, TV 600 FiO2 55% PEEP 5 with an O2 saturation of 97% noted at this time. Bilateral lower lobe breath sounds noted to be diminished upon auscultation. Pt noted to be AFib on tele monitor with a HR of 95 and no s/sx of acute cardiac distress noted. Left subclavian TLC noted which remains asymptomatic, intact and patent. Central line dressing remains clean, dry and intact. NS currently infusing at 100mL/hr. VS obtained and noted to be stable at this time. OGT noted which remains intact and patent with feeding currently infusing at 30mL/hr with no residual noted.GT feeding rate increased to 40mL per protocol, will continue to monitor. Active bowel sounds noted in all four quadrants; abdomen remains round and soft. Kelsey catheter noted, draining to yellow urine to gravity. Diagnostics reviewed at bedside. Skin alterations noted. Fall, Aspiration and Skin precautions observed. Pt remains resting in bed; Bed remains in the lowest position with the safety wheels engaged, call light within reach, side rails up x3 and bed alarm activated. Will continue plan of care. Will continue to monitor.
--- NOTE | 2020-01-08 19:25 | NUR ---
HAND-OFF: Report given to OLAYINKA JOHNSON. PT IN NO DISTRESS.
--- NOTE | 2020-01-08 20:05 | Surgery Progress Note ---
Surgery Progress Note Subjective Procedure Performed left subclavian central venous catheter insertion Additional Comments ill appearing no n/v Objective Last 24 Hour Vital Signs Date Time Temp Pulse Resp B/P (MAP) Pulse Ox O2 Delivery O2 Flow Rate FiO2 01/08/20 19:00 93 22 144/53 (83) 97 01/08/20 18:16 93 22 65 01/08/20 18:00 97 21 107/64 (78) 96 01/08/20 17:00 82 21 132/55 (80) 97 01/08/20 16:00 65 01/08/20 16:00 Mechanical Ventilator 01/08/20 16:00 92 01/08/20 16:00 89 22 130/56 (80) 94 01/08/20 15:30 75 18 123/61 (81) 95 01/08/20 15:00 84 21 131/59 (83) 95 01/08/20 14:00 94 21 138/61 (86) 97 01/08/20 13:30 93 21 129/61 (83) 96 01/08/20 13:00 88 20 129/65 (86) 95 01/08/20 12:30 93 22 135/66 (89) 96 01/08/20 12:00 65 01/08/20 12:00 99.6 93 22 135/58 (83) 97 01/08/20 12:00 Mechanical Ventilator 01/08/20 12:00 108 01/08/20 11:34 99 23 65 01/08/20 11:00 92 21 129/55 (79) 96 01/08/20 11:00 97 21 129/55 (79) 96 01/08/20 10:30 95 23 133/47 (75) 96 01/08/20 10:00 90 18 115/49 (71) 96 01/08/20 09:00 90 18 135/57 (83) 95 01/08/20 08:00 99.1 88 19 120/45 (70) 96 01/08/20 08:00 Mechanical Ventilator 01/08/20 08:00 86 01/08/20 08:00 65 01/08/20 07:30 91 21 65 01/08/20 07:00 88 20 123/58 (79) 97 01/08/20 06:00 98.3 91 19 126/46 (72) 95 01/08/20 05:00 92 21 126/63 (84) 97 01/08/20 04:00 91 01/08/20 04:00 91 19 129/66 (87) 97 01/08/20 04:00 Mechanical Ventilator 01/08/20 04:00 65 01/08/20 03:00 85 19 65 01/08/20 03:00 90 20 128/51 (76) 97 01/08/20 02:00 90 20 131/58 (82) 97 01/08/20 01:00 90 21 124/56 (78) 97 01/08/20 00:00 98.9 89 20 134/55 (81) 97 01/08/20 00:00 Mechanical Ventilator 01/07/20 23:16 89 21 65 01/07/20 23:00 93 19 137/61 (86) 97 01/07/20 22:00 94 20 139/63 (88) 97 01/07/20 21:00 99 18 139/65 (89) 96 I&O Intake and Output 01/07/20 01/08/20 19:00 07:00 Intake Total 2180.0 ml 2054.83 ml Output Total 760 ml 330 ml Balance 1420.0 ml 1724.83 ml Free Water 30 ml IV Total 2120.0 ml 1784.83 ml Tube Feeding 60 ml 240 ml Output Urine Total 760 ml 330 ml Dressing: saturated Cardiovascular: RSR Respiratory: clear, decreased breath sounds Abdomen: non-tender, present bowel sounds Extremities: no edema, no tenderness, no cyanosis Laboratory Tests Test 01/08/20 04:15 01/08/20 12:23 01/08/20 17:46 White Blood Count 17.8 K/UL (4.8-10.8) H Red Blood Count 3.47 M/UL (4.20-5.40) L Hemoglobin 8.9 G/DL (12.0-16.0) L Hematocrit 28.3 % (37.0-47.0) L Mean Corpuscular Volume 82 FL (80-99) Mean Corpuscular Hemoglobin 25.6 PG (27.0-31.0) L Mean Corpuscular Hemoglobin Concent 31.4 G/DL (32.0-36.0) L Red Cell Distribution Width 16.6 % (11.6-14.8) H Platelet Count 143 K/UL (150-450) L Mean Platelet Volume 9.5 FL (6.5-10.1) Neutrophils (%) (Auto) % (45.0-75.0) Lymphocytes (%) (Auto) % (20.0-45.0) Monocytes (%) (Auto) % (1.0-10.0) Eosinophils (%) (Auto) % (0.0-3.0) Basophils (%) (Auto) % (0.0-2.0) Differential Total Cells Counted 100 Neutrophils % (Manual) 89 % (45-75) H Lymphocytes % (Manual) 5 % (20-45) L Monocytes % (Manual) 5 % (1-10) Eosinophils % (Manual) 0 % (0-3) Basophils % (Manual) 0 % (0-2) Band Neutrophils 1 % (0-8) Nucleated Red Blood Cells 1 /100 WBC Platelet Estimate Decreased L Platelet Morphology Normal Hypochromasia 2+ Anisocytosis 1+ Sodium Level 133 MMOL/L (136-145) L Potassium Level 3.8 MMOL/L (3.5-5.1) Chloride Level 98 MMOL/L (98-107) Carbon Dioxide Level 23 MMOL/L (21-32) Anion Gap 12 mmol/L (5-15) Blood Urea Nitrogen 89 mg/dL (7-18) H Creatinine 2.9 MG/DL (0.55-1.30) H Estimat Glomerular Filtration Rate 15.4 mL/min (>60) Glucose Level 151 MG/DL (74-106) H Uric Acid 10.9 MG/DL (2.6-7.2) H Calcium Level 8.6 MG/DL (8.5-10.1) Phosphorus Level 3.6 MG/DL (2.5-4.9) Magnesium Level 1.9 MG/DL (1.8-2.4) Total Bilirubin 0.6 MG/DL (0.2-1.0) Aspartate Amino Transf (AST/SGOT) 277 U/L (15-37) H Alanine Aminotransferase (ALT/SGPT) 755 U/L (12-78) H Alkaline Phosphatase 170 U/L (46-116) H Pro-B-Type Natriuretic Peptide 81973 pg/mL (0-125) H Total Protein 5.7 G/DL (6.4-8.2) L Albumin 2.3 G/DL (3.4-5.0) L Globulin 3.4 g/dL Albumin/Globulin Ratio 0.7 (1.0-2.7) L POC Whole Blood Glucose 207 MG/DL (74-106) H 178 MG/DL (74-106) H Plan Problems: (1) Acute on chronic systolic (congestive) heart failure (2) CO2 retention (3) BORIS (acute kidney injury) (4) Shock liver Assessment & Plan: Hypotensive septic acute elevation in LFTs AST ALT thousands alk phos elevated. Likely shock from hypotension and acute episode. Labs trending down. IV fluid hydration. No acute intervention. Hold on imaging. Line reviewed. No bleeding noted. All 3 ports functional. Chest x-ray reviewed. Drop in hemoglobin unlikely related to line. Will monitor. Trend labs. Transfuse PRN. And are improvement in position of previously malpositioned endotracheal tube, tip now projecting 1-2 cm above the garrett. Interim placement of an orogastric tube, tip of which projects beyond the edge of the image, presumably well within the stomach. Interim placement of a left subclavian central venous catheter, tip of which projects at the level of the innominate venous confluence. No pneumothorax. Bilateral infiltrates are again demonstrated, unchanged. Impression: Improved and now satisfactory position of endotracheal tube Interim left subclavian central venous catheter placement, no radiographically evident complication Interim orogastric intubation, apparently satisfactory Unchanged bilateral infiltrates (5) Atrial fibrillation (6) Diabetes mellitus (7) CHF (congestive heart failure) (8) Hypothyroidism (9) Chronic respiratory failure Assessment & Plan: Intubated intensive care unit weaning vent. ET tube in place. Chest x-ray reviewed. (10) History of hypertension (11) 2019 novel coronavirus detected Assessment & Plan: COVID positive as per ID and pulmonology appreciate input and care. Continue vent support wean as tolerated. Satinder Olivera Jan 08, 2020 20:05
[2020-01-08] MEDS: Dyna-Hex 2% Top Sol 2oz TOPIC SCH (20:15)
--- NOTE | 2020-01-08 21:00 | NUR ---
NURSE NOTES: Pt provided with a CHG bed bath, oral care and linen change. Central line dressing remains clean, dry and intact. ROM exercises provided per pt tolerance. Pt tolerated care well. Bedside assessment performed, assessed pt for pain using FLACC scale with a score of 0 noted.Pt repositioned for comfort and safety. Fall, Aspiration and Skin precautions observed. Pt remains resting in bed; Bed remains in the lowest position with the safety wheels engaged, call light within reach, side rails up x3 and bed alarm activated. Will continue plan of care. Will continue to monitor.
--- NOTE | 2020-01-08 23:00 | NUR ---
NURSE NOTES: Bedside assessment performed, assessed pt with a FLACC scale of 0 noted. Pt remains calm, comfortable, clean and dry. Pt continues to tolerate current vent settings well. Pt repositioned for comfort and safety. Fall, Aspiration, Seizure and Skin precautions observed. Pt remains resting in bed; Bed remains in the lowest position with the safety wheels engaged, call light within reach, side rails up x3 and bed alarm activated. Will continue plan of care. Will continue to monitor.
[2020-01-09] VITALS (24 sets, daily range): BP systolic 125–178; BP diastolic 59–87
[2020-01-09] MEDS: Piperacillin/Tazobactam 3.375 GM in NS 110 ML IVPB SCH ×2 (00:22→12:22)
--- NOTE | 2020-01-09 01:00 | NUR ---
NURSE NOTES: Bedside assessment performed, assessed pt with a FLACC scale of 0 noted. Pt remains calm, comfortable, clean and dry. Pt continues to tolerate current vent settings well. Pt repositioned for comfort and safety. Fall, Aspiration and Skin precautions observed. Pt remains resting in bed; Bed remains in the lowest position with the safety wheels engaged, call light within reach, side rails up x3 and bed alarm activated. Will continue plan of care. Will continue to monitor.
--- NOTE | 2020-01-09 03:00 | NUR ---
NURSE NOTES: Bedside assessment performed, assessed pt with a FLACC scale of 0 noted. Pt remains calm, comfortable, clean and dry. Pt continues to tolerate current vent settings well. Pt repositioned for comfort and safety. Morning lab draw performed on first attempt without incident. Will submit samples to laboratory for analysis. Fall, Aspiration, Seizure and Skin precautions observed. Pt remains resting in bed; Bed remains in the lowest position with the safety wheels engaged, call light within reach, side rails up x3 and bed alarm activated. Will continue plan of care. Will continue to monitor.
--- NOTE | 2020-01-09 05:00 | NUR ---
NURSE NOTES: Bedside assessment performed, assessed pt with a FLACC scale of 0 noted. Pt provided with a partial bed bath, oral care and ROM exercises per pt tolerance. Pt remains calm, comfortable, clean and dry. Pt continues to tolerate current vent settings well. Pt repositioned for comfort and safety. Sputum sample collected for culture per order and submitted to lab for analysis. Fall, Aspiration and Skin precautions observed. Pt remains resting in bed; Bed remains in the lowest position with the safety wheels engaged, call light within reach, side rails up x3 and bed alarm activated. Will continue plan of care. Will continue to monitor.
[2020-01-09] MEDS: NovoLOG Insulin Flexpen SUBQ SCH ×4 (05:16→23:29)
[2020-01-09 05:29] LABS: IRON 29 ug/dL (50-175); TOTAL IRON BINDING CAPACITY 129 ug/dL (250-450)
[2020-01-09 05:38] LABS: % IRON SATURATION 22 % (15-50)
[2020-01-09 06:31] LABS: ALANINE AMINOTRANSFERASE 470 U/L (12-78); ALBUMIN 2.5 G/DL (3.4-5.0); ALBUMIN/GLOBULIN RATIO 0.7 (1.0-2.7); ALKALINE PHOSPHATASE 164 U/L (46-116); ANION GAP 14 mmol/L (5-15); ASPARTATE AMINO TRANSFERASE 116 U/L (15-37); BILIRUBIN,TOTAL 0.5 MG/DL (0.2-1.0); BLOOD UREA NITROGEN 82 mg/dL (7-18); CALCIUM 8.2 MG/DL (8.5-10.1); CARBON DIOXIDE 22 MMOL/L (21-32); CHLORIDE 103 MMOL/L (98-107); CREATININE 2.8 MG/DL (0.55-1.30); FERRITIN > 2000 NG/ML (8-388); GAMMA GLUTAMYL TRANSPEPTIDASE 111 U/L (5-85); PHOSPHORUS 3.3 MG/DL (2.5-4.9); POTASSIUM 3.8 MMOL/L (3.5-5.1); SODIUM 139 MMOL/L (136-145)
--- NOTE | 2020-01-09 07:09 | NUR ---
NURSE HAND-OFF REPORT: Latest Vital Signs: Temperature 98.9 , Pulse 100 , B/P 146 /60 , Respiratory Rate 23 , O2 SAT 95 , Mechanical Ventilator, O2 Flow Rate 10.0 . Vital Sign Comment: VS remained stable for duration of shift EKG Rhythm: Atrial Fibrillation Rhythm change?: N MD Notified?: N Response: N/A Latest Shaw Fall Score: 70 Fall Risk: High Risk Safety Measures: Call light Within Reach, Bed Alarm Zone 2, Side Rails Side Rails x3, Bed position Low and Locked. Fall Precautions: Door Sign Report given to ALEX Thacker. Endorsed plan of care.
--- NOTE | 2020-01-09 07:43 | NUR ---
HAND-OFF: Report given to [JEANINE JOHNSON] PT IN NO ACUTE DISTRESS. ALL QUESTIONS ANSWERED.
--- NOTE | 2020-01-09 07:45 | NUR ---
NURSE NOTES: Report received from Kirstie Lai RN.Pt asleep ,non responsive to verbal stimuli, noted no resp distress ,orally intubated,ETT 7.5 lip line 23cm,AC16,TV600 Fio2 65%,Peep 5,no signs of pain or discomfort,on AFIB on the monitor,OGTF Vital AF 1.2 at 50 ml/hr,goal 55,no residual noted,in placed per auscultation,Kelsey cath draining yellow urine ,skin hot to touch with low grade fever 99.5,applied cold compress to forehead,SR up x2 HOB elevated 30 degress,bed lock in lowest position,will continue with plans of care.
--- NOTE | 2020-01-09 08:13 | Surgery Progress Note ---
Surgery Progress Note Subjective Procedure Performed left subclavian central venous catheter insertion Additional Comments ill appearing labs pending no n/v Objective Last 24 Hour Vital Signs Date Time Temp Pulse Resp B/P (MAP) Pulse Ox O2 Delivery O2 Flow Rate FiO2 01/09/20 07:00 100 23 146/60 (88) 95 01/09/20 06:00 108 26 153/64 (93) 95 01/09/20 05:00 118 33 163/73 (103) 100 01/09/20 04:00 55 01/09/20 04:00 98.9 102 27 151/74 (99) 94 01/09/20 04:00 Mechanical Ventilator Mechanical Ventilator 01/09/20 03:40 99 26 55 01/09/20 03:12 117 01/09/20 03:00 101 27 155/77 (103) 95 01/09/20 02:00 100 26 144/66 (92) 95 01/09/20 01:00 94 24 125/59 (81) 95 01/09/20 00:00 Mechanical Ventilator Mechanical Ventilator 01/09/20 00:00 98.9 97 26 148/63 (91) 93 01/09/20 00:00 55 01/08/20 23:47 100 01/08/20 23:23 99 27 55 01/08/20 23:00 95 24 135/69 (91) 97 01/08/20 22:00 93 24 137/60 (85) 97 01/08/20 21:00 92 22 139/60 (86) 97 01/08/20 20:00 55 01/08/20 20:00 Mechanical Ventilator Mechanical Ventilator 01/08/20 20:00 98.4 89 23 134/50 (78) 97 01/08/20 19:35 91 01/08/20 19:10 94 24 65 01/08/20 19:00 93 22 144/53 (83) 97 01/08/20 18:16 93 22 65 01/08/20 18:00 97 21 107/64 (78) 96 01/08/20 17:00 82 21 132/55 (80) 97 01/08/20 16:00 65 01/08/20 16:00 Mechanical Ventilator 01/08/20 16:00 92 01/08/20 16:00 89 22 130/56 (80) 94 01/08/20 15:30 75 18 123/61 (81) 95 01/08/20 15:00 84 21 131/59 (83) 95 01/08/20 14:00 94 21 138/61 (86) 97 01/08/20 13:30 93 21 129/61 (83) 96 01/08/20 13:00 88 20 129/65 (86) 95 01/08/20 12:30 93 22 135/66 (89) 96 01/08/20 12:00 65 01/08/20 12:00 99.6 93 22 135/58 (83) 97 01/08/20 12:00 Mechanical Ventilator 01/08/20 12:00 108 01/08/20 11:34 99 23 65 01/08/20 11:00 92 21 129/55 (79) 96 01/08/20 11:00 97 21 129/55 (79) 96 01/08/20 10:30 95 23 133/47 (75) 96 01/08/20 10:00 90 18 115/49 (71) 96 01/08/20 09:00 90 18 135/57 (83) 95 I&O Intake and Output 01/08/20 01/09/20 19:00 07:00 Intake Total 2761.5 ml 2188.333 ml Output Total 375 ml 380 ml Balance 2386.5 ml 1808.333 ml Free Water 30 ml IV Total 2426.5 ml 1608.333 ml Tube Feeding 335 ml 520 ml Blood Product 30 ml Output Urine Total 375 ml 380 ml # Bowel Movements 1 Dressing: saturated Cardiovascular: RSR Respiratory: decreased breath sounds Abdomen: soft, non-tender, present bowel sounds Extremities: no edema, no tenderness, no cyanosis Laboratory Tests Test 01/08/20 12:23 01/08/20 17:46 01/09/20 00:27 01/09/20 04:00 POC Whole Blood Glucose 207 MG/DL (74-106) H 178 MG/DL (74-106) H Pending Sodium Level 139 MMOL/L (136-145) Potassium Level 3.8 MMOL/L (3.5-5.1) Chloride Level 103 MMOL/L (98-107) Carbon Dioxide Level 22 MMOL/L (21-32) Anion Gap 14 mmol/L (5-15) Blood Urea Nitrogen 82 mg/dL (7-18) H Creatinine 2.8 MG/DL (0.55-1.30) H Estimat Glomerular Filtration Rate 16.0 mL/min (>60) Glucose Level 155 MG/DL (74-106) H Uric Acid 9.1 MG/DL (2.6-7.2) H Calcium Level 8.2 MG/DL (8.5-10.1) L Phosphorus Level 3.3 MG/DL (2.5-4.9) Magnesium Level 1.8 MG/DL (1.8-2.4) Iron Level 29 ug/dL (50-175) L Total Iron Binding Capacity 129 ug/dL (250-450) L Percent Iron Saturation 22 % (15-50) Unsaturated Iron Binding 100 ug/dL (112-346) L Ferritin > 2000 NG/ML (8-388) H Total Bilirubin 0.5 MG/DL (0.2-1.0) Gamma Glutamyl Transpeptidase 111 U/L (5-85) H Aspartate Amino Transf (AST/SGOT) 116 U/L (15-37) H Alanine Aminotransferase (ALT/SGPT) 470 U/L (12-78) H Alkaline Phosphatase 164 U/L (46-116) H Total Protein 6.0 G/DL (6.4-8.2) L Albumin 2.5 G/DL (3.4-5.0) L Globulin 3.5 g/dL Albumin/Globulin Ratio 0.7 (1.0-2.7) L Vitamin B12 Level 1449 PG/ML (193-986) H Folate 17.8 NG/ML (8.6-58.9) Test 01/09/20 04:50 POC Whole Blood Glucose 136 MG/DL (74-106) H Plan Problems: (1) Acute on chronic systolic (congestive) heart failure (2) CO2 retention (3) BORIS (acute kidney injury) (4) Shock liver Assessment & Plan: Hypotensive septic acute elevation in LFTs AST ALT thousands alk phos elevated. Likely shock from hypotension and acute episode. Labs trending down. IV fluid hydration. No acute intervention. Hold on imaging. Line reviewed. No bleeding noted. All 3 ports functional. Chest x-ray reviewed. Drop in hemoglobin unlikely related to line. Will monitor. Trend labs. Transfuse PRN. And are improvement in position of previously malpositioned endotracheal tube, tip now projecting 1-2 cm above the garrett. Interim placement of an orogastric tube, tip of which projects beyond the edge of the image, presumably well within the stomach. Interim placement of a left subclavian central venous catheter, tip of which projects at the level of the innominate venous confluence. No pneumothorax. Bilateral infiltrates are again demonstrated, unchanged. Impression: Improved and now satisfactory position of endotracheal tube Interim left subclavian central venous catheter placement, no radiographically evident complication Interim orogastric intubation, apparently satisfactory Unchanged bilateral infiltrates (5) Atrial fibrillation (6) Diabetes mellitus (7) CHF (congestive heart failure) (8) Hypothyroidism (9) Chronic respiratory failure Assessment & Plan: Intubated intensive care unit weaning vent. ET tube in place. Chest x-ray reviewed. (10) History of hypertension (11) 2019 novel coronavirus detected Assessment & Plan: COVID positive as per ID and pulmonology appreciate input and care. Continue vent support wean as tolerated. Satinder Olivera Jan 09, 2020 08:13
[2020-01-09] MEDS ORDERED: 1/2 NS 1000ml IV ONE ×2 (08:28→08:39)
[2020-01-09] MEDS ORDERED: Tubing IV Secondary IV ONE (08:28)
[2020-01-09] MEDS ORDERED: NS 500ML ONE (08:28)
[2020-01-09] MEDS ORDERED: Sterile Water Irrig 1000ml IRRIG ONE (08:39)
[2020-01-09] MEDS: Pantoprazole Inj IV SCH ×2 (09:02→20:37)
[2020-01-09] MEDS: Heparin 5000 units/ml inj SUBQ SCH ×2 (09:04→20:38)
--- NOTE | 2020-01-09 09:05 | Nephrology Progress Note ---
Assessment/Plan Problem List: (1) BORIS (acute kidney injury) (2) 2019 novel coronavirus detected (3) Hypothyroidism (4) Diabetes mellitus (5) Atrial fibrillation (6) Shock liver Assessment 85-year-old female admitted 5 days ago, at the time serum creatinine was 0.9 and today the serum creatinine is 1.4, most likely BORIS Hypernatremia secondary to free water deficit Prerenal azotemia COVID-19 virus detected Acute on chronic systolic congestive heart failure Atrial fibrillation Diabetes mellitus Hypothyroidism Hypertension Acute on chronic respiratory failure Plan January 08: Lab reviewed. Serum creatinine 2.8. LFTs improving. Remains intubated. Remains full code. Continue per consultants. Continue to monitor renal parameters. Avoid nephrotoxic's as possible. January 07: Labs reviewed. Serum creatinine robby to 2.9. Liver enzymes are improving. Patient off pressors. Patient full code. Patient intubated on ventilator. Continue to monitor renal parameters. IV fluid changed to normal saline. Continue per consultants. Anemia work-up initiated, iron panel B12 and folate level ordered. January 06: Labs reviewed. Serum creatinine up to 2.6. Medications reviewed. Continue to follow renal parameters and electrolytes. Continue to monitor liver enzymes. Allopurinol for high uric acid given. Discussed with RN. January 05: Blood pressure stable off pressors. Continue IV fluids. Monitor renal parameters. Monitor liver function tests. Hold oral Synthroid at this time. Continue treatment for sepsis and COVID-19 infection IV fluids Keep the blood pressure over 100 systolic Monitor renal parameters and electrolytes Monitor liver function tests Avoid nephrotoxic's as possible Urine studies Digoxin level Thyroid function tests Per orders Subjective ROS Limited/Unobtainable: Yes Objective Objective Last 24 Hour Vital Signs Date Time Temp Pulse Resp B/P (MAP) Pulse Ox O2 Delivery O2 Flow Rate FiO2 01/09/20 08:00 93 01/09/20 08:00 Mechanical Ventilator Mechanical Ventilator 01/09/20 08:00 97 22 141/64 (89) 94 01/09/20 08:00 55 01/09/20 07:28 93 22 55 01/09/20 07:00 100 23 146/60 (88) 95 01/09/20 06:00 108 26 153/64 (93) 95 01/09/20 05:00 118 33 163/73 (103) 100 01/09/20 04:00 55 01/09/20 04:00 98.9 102 27 151/74 (99) 94 01/09/20 04:00 Mechanical Ventilator Mechanical Ventilator 01/09/20 03:40 99 26 55 01/09/20 03:12 117 01/09/20 03:00 101 27 155/77 (103) 95 01/09/20 02:00 100 26 144/66 (92) 95 01/09/20 01:00 94 24 125/59 (81) 95 01/09/20 00:00 Mechanical Ventilator Mechanical Ventilator 01/09/20 00:00 98.9 97 26 148/63 (91) 93 01/09/20 00:00 55 01/08/20 23:47 100 01/08/20 23:23 99 27 55 01/08/20 23:00 95 24 135/69 (91) 97 01/08/20 22:00 93 24 137/60 (85) 97 01/08/20 21:00 92 22 139/60 (86) 97 01/08/20 20:00 55 01/08/20 20:00 Mechanical Ventilator Mechanical Ventilator 01/08/20 20:00 98.4 89 23 134/50 (78) 97 01/08/20 19:35 91 01/08/20 19:10 94 24 65 01/08/20 19:00 93 22 144/53 (83) 97 01/08/20 18:16 93 22 65 01/08/20 18:00 97 21 107/64 (78) 96 01/08/20 17:00 82 21 132/55 (80) 97 01/08/20 16:00 65 01/08/20 16:00 Mechanical Ventilator 01/08/20 16:00 92 01/08/20 16:00 89 22 130/56 (80) 94 01/08/20 15:30 75 18 123/61 (81) 95 01/08/20 15:00 84 21 131/59 (83) 95 01/08/20 14:00 94 21 138/61 (86) 97 01/08/20 13:30 93 21 129/61 (83) 96 01/08/20 13:00 88 20 129/65 (86) 95 01/08/20 12:30 93 22 135/66 (89) 96 01/08/20 12:00 65 01/08/20 12:00 99.6 93 22 135/58 (83) 97 01/08/20 12:00 Mechanical Ventilator 01/08/20 12:00 108 01/08/20 11:34 99 23 65 01/08/20 11:00 92 21 129/55 (79) 96 01/08/20 11:00 97 21 129/55 (79) 96 01/08/20 10:30 95 23 133/47 (75) 96 01/08/20 10:00 90 18 115/49 (71) 96 Intake and Output 01/08/20 01/09/20 18:59 06:59 Intake Total 2766.5 ml 2168.333 ml Output Total 400 ml 375 ml Balance 2366.5 ml 1793.333 ml Free Water 30 ml IV Total 2441.5 ml 1608.333 ml Tube Feeding 325 ml 500 ml Blood Product 30 ml Output Urine Total 400 ml 375 ml # Bowel Movements 1 Laboratory Tests 01/08/20 12:23: POC Whole Blood Glucose 207H 01/08/20 17:46: POC Whole Blood Glucose 178H 01/09/20 00:27: POC Whole Blood Glucose [Pending] 01/09/20 04:00: Sodium Level 139, Potassium Level 3.8, Chloride Level 103, Carbon Dioxide Level 22, Anion Gap 14, Blood Urea Nitrogen 82H, Creatinine 2.8H, Estimat Glomerular Filtration Rate 16.0, Glucose Level 155H, Uric Acid 9.1H, Calcium Level 8.2L, Phosphorus Level 3.3, Magnesium Level 1.8, Iron Level 29L, Total Iron Binding Capacity 129L, Percent Iron Saturation 22, Unsaturated Iron Binding 100L, Ferritin > 2000H, Total Bilirubin 0.5, Gamma Glutamyl Transpeptidase 111H, Aspartate Amino Transf (AST/SGOT) 116H, Alanine Aminotransferase (ALT/SGPT) 470H , Alkaline Phosphatase 164H, Total Protein 6.0L, Albumin 2.5L, Globulin 3.5, Albumin/Globulin Ratio 0.7L, Vitamin B12 Level 1449H, Folate 17.8 01/09/20 04:50: POC Whole Blood Glucose 136H 01/09/20 08:18: Arterial Blood pH 7.392, Arterial Blood Partial Pressure CO2 33.4L, Arterial Blood Partial Pressure O2 67.3L, Arterial Blood HCO3 19.9L, Arterial Blood Oxygen Saturation 93.0L, Arterial Blood Base Excess -4.4L, [place] Test Positive Height (Feet): 5 Height (Inches): 2.00 Weight (Pounds): 155 General Appearance: no apparent distress EENT: other - Intubated on ventilator Cardiovascular: tachycardia Respiratory/Chest: decreased breath sounds Abdomen: distended Naun Mandel MD Jan 09, 2020 09:05
--- NOTE | 2020-01-09 09:46 | Diagnostic Imaging Report ---
EXAM: XR Chest, 1 View CLINICAL HISTORY: SOB TECHNIQUE: Frontal view of the chest. COMPARISON: Chest reading of January 08, 2020. FINDINGS/IMPRESSION: Endotracheal tube terminates 4.3 cm above the garrett. EKG leads overlie the patient. Check feeding tube terminates below the field of view, likely in the stomach. Left sublabial line terminates in the superior vena cava. Patchy bilateral airspace opacities, suspicious for multifocal infiltrate. Coarsened interstitial markings, which are chronically increased. Overall, the lung hollis are similar in appearance to January 08, 2020. Small bilateral pleural effusions, right and left. No pneumothorax.
--- NOTE | 2020-01-09 10:00 | NUR ---
NURSE NOTES: Pt obtunded,stable noted no SOB or resp distress presented,turned to sides.
--- NOTE | 2020-01-09 10:41 | Pulmonolgy Critical Care Note ---
Critical Care - Asmt/Plan Assessment/Plan: ASSESSMENT Status post CP arrest 2 to asystole ( found to remove BiPAP) COVID-19 pneumonia Acute hypoxemic hypercapnic respiratory failure on chronic respiratory failure Acute on chronic diastolic congestive heart failure Acute kidney injury Shock liver A. fib with RVR Severe pulmonary hypertension Elevated troponin , likely due to CPR COPD Former smoker Diabetes mellitus Hypothyroidism History of hypertension PLAN OF CARE ICU vent support pulm toilet fup with ABG and CXR, titrate settings as needed steroids x 10 days, Remdesivir completed x 5 days monitor inflammatory markers DVT prophylaxis empiric abx as per ID due to leukocytosis BCX 01/06 NGTD SCX NGT leuk possible due to steroids? CBC for this am still pending Echo with pEF 65% and RVSP 96% off Cardizem drip elevated troponin likely due to CPR as per cardio monitor renal parameters lytes, correct electrolytes as needed Venous Duplex BLE pending fup with nephro recommendation GI prophylaxis LFT trending down , likely shock liver BS management with SSI nutritional support aspiration precautions case discussed and evaluated by supervising physician Critical Care - Objective Last 24 Hour Vital Signs Date Time Temp Pulse Resp B/P (MAP) Pulse Ox O2 Delivery O2 Flow Rate FiO2 01/09/20 10:17 142 33 100 01/09/20 10:04 105 28 155/64 (94) 94 01/09/20 09:00 99.5 102 25 143/76 (98) 94 01/09/20 08:00 93 01/09/20 08:00 Mechanical Ventilator Mechanical Ventilator 01/09/20 08:00 97 22 141/64 (89) 94 01/09/20 08:00 55 01/09/20 07:28 93 22 55 01/09/20 07:00 100 23 146/60 (88) 95 01/09/20 06:00 108 26 153/64 (93) 95 01/09/20 05:00 118 33 163/73 (103) 100 01/09/20 04:00 55 01/09/20 04:00 98.9 102 27 151/74 (99) 94 01/09/20 04:00 Mechanical Ventilator Mechanical Ventilator 01/09/20 03:40 99 26 55 01/09/20 03:12 117 01/09/20 03:00 101 27 155/77 (103) 95 9/27/20 02:00 100 26 144/66 (92) 95 01/09/20 01:00 94 24 125/59 (81) 95 01/09/20 00:00 Mechanical Ventilator Mechanical Ventilator 01/09/20 00:00 98.9 97 26 148/63 (91) 93 01/09/20 00:00 55 01/08/20 23:47 100 01/08/20 23:23 99 27 55 01/08/20 23:00 95 24 135/69 (91) 97 01/08/20 22:00 93 24 137/60 (85) 97 01/08/20 21:00 92 22 139/60 (86) 97 01/08/20 20:00 55 01/08/20 20:00 Mechanical Ventilator Mechanical Ventilator 01/08/20 20:00 98.4 89 23 134/50 (78) 97 01/08/20 19:35 91 01/08/20 19:10 94 24 65 01/08/20 19:00 93 22 144/53 (83) 97 01/08/20 18:16 93 22 65 01/08/20 18:00 97 21 107/64 (78) 96 01/08/20 17:00 82 21 132/55 (80) 97 01/08/20 16:00 65 01/08/20 16:00 Mechanical Ventilator 01/08/20 16:00 92 01/08/20 16:00 89 22 130/56 (80) 94 01/08/20 15:30 75 18 123/61 (81) 95 01/08/20 15:00 84 21 131/59 (83) 95 01/08/20 14:00 94 21 138/61 (86) 97 01/08/20 13:30 93 21 129/61 (83) 96 01/08/20 13:00 88 20 129/65 (86) 95 01/08/20 12:30 93 22 135/66 (89) 96 01/08/20 12:00 65 01/08/20 12:00 99.6 93 22 135/58 (83) 97 01/08/20 12:00 Mechanical Ventilator 01/08/20 12:00 108 01/08/20 11:34 99 23 65 01/08/20 11:00 92 21 129/55 (79) 96 01/08/20 11:00 97 21 129/55 (79) 96 Status: sedated, other - orally intuabted on Vent AC Condition: critical HEENT: atraumatic, normocephalic, other - OP with ET in palce, intact Lungs: rhonchi - few scattered rhonchi BL, tachypneic Heart: HR/BP stable Abdomen: soft, non-tender, active bowel sounds Extremities: other - tarce edema BLE Micro: Microbiology Date/Time Source Procedure Growth Status 01/07/20 11:20 Blood Blood Culture - Preliminary NO GROWTH AFTER 24 HOURS Resulted 01/07/20 11:10 Blood Blood Culture - Preliminary NO GROWTH AFTER 24 HOURS Resulted Accucheck: 136 Critical Care - Subjective ROS Limited/Unobtainable: Yes Interval Events: tachypneic ABG this am noted CXR this am with mild worsening CBC pending off Cardizem drip , HR overall controlled, still mild tachycardia low grade fever this am 99.5 Condition: critical IV Access: central - L subclavian CL intact EKG Rhythm: Sinus Tachycardia FI02: 100 Vent Support Breath Rate: 16 Vent Support Mode: AC Vent Tidal Volume: 600 Sputum Amount: Small PEEP: 5.0 PIP: 27 Tube Feeding Amount: 50 I&O: Intake and Output 01/08/20 01/09/20 19:00 07:00 Intake Total 2761.5 ml 2188.333 ml Output Total 375 ml 380 ml Balance 2386.5 ml 1808.333 ml Free Water 30 ml IV Total 2426.5 ml 1608.333 ml Tube Feeding 335 ml 520 ml Blood Product 30 ml Output Urine Total 375 ml 380 ml # Bowel Movements 1 CXR: 01/08 Endotracheal tube terminates 4.3 cm above the garrett. EKG leads overlie the patient. Check feeding tube terminates below the field of view, likely in the stomach. Left sublabial line terminates in the superior vena cava. Patchy bilateral airspace opacities, suspicious for multifocal infiltrate. Coarsened interstitial markings, which are chronically increased. Overall, the lung hollis are similar in appearance to January 08, 2020. Small bilateral pleural effusions, right and left. No pneumothorax. ET-Tube: 7.5 ET Position: 23 Yelitza Marmolejo NP Jan 09, 2020 10:41
--- NOTE | 2020-01-09 12:00 | NUR ---
NURSE NOTES: Oral care done,oral secretions and ETTsecretions suctioned PRN.
[2020-01-09 13:11] LABS: HEMATOCRIT 27.3 % (37.0-47.0); HEMOGLOBIN 8.4 G/DL (12.0-16.0); MEAN CORPUSCULAR VOLUME 82 FL (80-99); PLATELET COUNT 155 K/UL (150-450); RED BLOOD COUNT 3.32 M/UL (4.20-5.40); RED CELL DISTRIBUTION WIDTH 16.8 % (11.6-14.8)
--- NOTE | 2020-01-09 13:11 | Internal Med Progress Note ---
Subjective Date of Service: Jan 09, 2020 Physician Name GinHarris Attending Physician Fernando Peguero MD Current Medications Medications (Trade) Dose Ordered Sig/Brett Route PRN Reason Start Time Stop Time Status Last Admin Dose Admin Acetaminophen (Tylenol) 650 mg Q4H PRN ORAL FEVER 01/01/20 07:00 01/31/20 06:59 01/07/20 05:05 Acetaminophen (Tylenol) 650 mg Q4H PRN RECTAL Temp >100.5 01/03/20 09:30 02/02/20 09:29 01/03/20 12:18 Albuterol/ Ipratropium (Combivent Respimat) 1 puff Q4H PRN INH Shortness of Breath 01/05/20 20:00 02/04/20 19:59 Allopurinol (allopurinoL) 300 mg DAILY NG 01/07/20 10:45 02/06/20 10:44 01/09/20 09:02 Chlorhexidine Gluconate (Silvia-Hex 2%) 1 applic DAILY@2000 TOPIC 01/07/20 20:00 04/06/20 19:59 01/08/20 20:15 Dexamethasone (Decadron) 4 mg DAILY ORAL 01/01/20 09:00 01/11/20 10:00 01/09/20 09:02 Dextrose (Dextrose 50%) 25 ml Q30M PRN IV Hypoglycemia 01/01/20 08:45 03/31/20 08:44 Dextrose (Dextrose 50%) 50 ml Q30M PRN IV Hypoglycemia 01/01/20 08:45 03/31/20 08:44 Diltiazem HCl (Cardizem) 15 mg Q12H PRN IVP For High Blood Pressure 01/03/20 07:00 02/02/20 06:59 Heparin Sodium (Porcine) (Heparin 5000 units/ml) 5,000 units EVERY 12 HOURS SUBQ 01/01/20 09:00 02/15/20 08:59 01/09/20 09:04 Insulin Aspart (NovoLOG) Q6HR SUBQ 01/09/20 00:00 03/31/20 11:29 01/09/20 12:54 Linezolid 300 ml @ 300 mls/hr Q12HR IVPB 01/07/20 21:00 01/14/20 20:59 01/09/20 09:02 Lorazepam (Ativan 2mg/ml 1ml) 2 mg Q4H PRN IV For Anxiety 01/05/20 08:45 01/12/20 08:44 Ondansetron HCl (Zofran) 4 mg Q6H PRN IVP Nausea & Vomiting 01/01/20 07:00 01/31/20 06:59 Pantoprazole (Protonix) 40 mg Q12HR IV 01/05/20 21:00 02/04/20 08:59 01/09/20 09:02 Piperacillin Sod/ Tazobactam Sod 3.375 gm/Sodium Chloride 110 ml @ 27.5 mls/hr Q12H IVPB 01/07/20 13:00 01/14/20 12:59 01/09/20 12:22 Sodium Chloride 1,000 ml @ 100 mls/hr Q10H IV 01/08/20 08:15 02/07/20 08:14 01/09/20 12:27 Allergies: Coded Allergies: DOXYCYCLINE (Verified Allergy, Unknown, 04/04/19) RIFAMPIN (Verified Allergy, Unknown, 04/04/19) ROS Limited/Unobtainable: Yes Subjective 84 YO F admitted with hypoxia. Now COVID 19 pneumonia. Cover for Int med-DR Peguero. ICU. Intubated and sedated Objective Last Vital Signs Date Time Temp Pulse Resp B/P (MAP) Pulse Ox O2 Delivery O2 Flow Rate FiO2 01/09/20 12:00 99 25 154/66 (95) 100 01/09/20 10:17 100 01/09/20 09:00 99.5 01/09/20 08:00 Mechanical Ventilator Mechanical Ventilator 01/01/20 04:25 10.0 Laboratory Tests Test 01/08/20 17:46 01/09/20 00:27 01/09/20 04:00 01/09/20 04:50 POC Whole Blood Glucose 178 MG/DL (74-106) H Pending 136 MG/DL (74-106) H Sodium Level 139 MMOL/L (136-145) Potassium Level 3.8 MMOL/L (3.5-5.1) Chloride Level 103 MMOL/L (98-107) Carbon Dioxide Level 22 MMOL/L (21-32) Anion Gap 14 mmol/L (5-15) Blood Urea Nitrogen 82 mg/dL (7-18) H Creatinine 2.8 MG/DL (0.55-1.30) H Estimat Glomerular Filtration Rate 16.0 mL/min (>60) Glucose Level 155 MG/DL (74-106) H Uric Acid 9.1 MG/DL (2.6-7.2) H Calcium Level 8.2 MG/DL (8.5-10.1) L Phosphorus Level 3.3 MG/DL (2.5-4.9) Magnesium Level 1.8 MG/DL (1.8-2.4) Iron Level 29 ug/dL (50-175) L Total Iron Binding Capacity 129 ug/dL (250-450) L Percent Iron Saturation 22 % (15-50) Unsaturated Iron Binding 100 ug/dL (112-346) L Ferritin > 2000 NG/ML (8-388) H Total Bilirubin 0.5 MG/DL (0.2-1.0) Gamma Glutamyl Transpeptidase 111 U/L (5-85) H Aspartate Amino Transf (AST/SGOT) 116 U/L (15-37) H Alanine Aminotransferase (ALT/SGPT) 470 U/L (12-78) H Alkaline Phosphatase 164 U/L (46-116) H Total Protein 6.0 G/DL (6.4-8.2) L Albumin 2.5 G/DL (3.4-5.0) L Globulin 3.5 g/dL Albumin/Globulin Ratio 0.7 (1.0-2.7) L Vitamin B12 Level 1449 PG/ML (193-986) H Folate 17.8 NG/ML (8.6-58.9) Test 01/09/20 08:18 01/09/20 12:38 Arterial Blood pH 7.392 (7.350-7.450) Arterial Blood Partial Pressure CO2 33.4 mmHg (35.0-45.0) L Arterial Blood Partial Pressure O2 67.3 mmHg (75.0-100.0) L Arterial Blood HCO3 19.9 mmol/L (22.0-26.0) L Arterial Blood Oxygen Saturation 93.0 % (95-100) L Arterial Blood Base Excess -4.4 (-2-2) L Chester Test Positive POC Whole Blood Glucose 165 MG/DL (74-106) H Microbiology Date/Time Source Procedure Growth Status 9/25/20 11:20 Blood Blood Culture - Preliminary NO GROWTH AFTER 24 HOURS Resulted 01/07/20 11:10 Blood Blood Culture - Preliminary NO GROWTH AFTER 24 HOURS Resulted Intake and Output 01/08/20 01/09/20 19:00 07:00 Intake Total 2761.5 ml 2188.333 ml Output Total 375 ml 380 ml Balance 2386.5 ml 1808.333 ml Free Water 30 ml IV Total 2426.5 ml 1608.333 ml Tube Feeding 335 ml 520 ml Blood Product 30 ml Output Urine Total 375 ml 380 ml # Bowel Movements 1 Objective PHYSICAL EXAMINATION: GENERAL: The patient is a well-developed and well-nourished female, in moderate respiratory distress. HEENT: Eyes, pupils equal and responsive to light and accommodation. Extraocular movements are intact. NECK: Supple without lymphadenopathy. CHEST: Mech vent; Decreased breath sounds at bilateral bases with crackles. Otherwise, without wheezes. CARDIOVASCULAR: Regular rhythm and rate. S1, S2 normal without murmurs, rubs, or gallops. ABDOMEN: Soft, nontender, and nondistended. Positive bowel sounds. No evidence of hepatosplenomegaly. Currently, no rebound or guarding noted. EXTREMITIES: Negative for clubbing, cyanosis, or edema. RECTAL/GENITAL: Not performed. NEUROLOGIC: Cranial nerves II through XII are grossly intact without focal deficits. Assessment/Plan Assessment/Plan ASSESSMENT: This is an 84-year-old female with: 1. COVID-19 positive. 2. Bilateral pneumonia. 3. Hypertension. 4. Atrial fibrillation. 5. Chronic obstructive pulmonary disease. 6. Coronary artery disease. 7. Congestive heart failure. 8. Diabetes type 2. 9. Hypothyroidism. 10. Hypercholesterolemia. 11. Rheumatoid arthritis. 12. Gastroesophageal reflux disease. 13. Respiratory failure 14. S/P cardiac arrest 01/05/20 TREATMENT: 1. COVID-19 positive/pneumonia. 1. Pulmonary/critical care=Dr. Ann-Marie Graves. 2. Hypertension. Continue hydralazine as above. 3. Atrial fibrillation. Continue digoxin as above. 4. Chronic obstructive pulmonary disease. As above, a Pulmonary consultation has been obtained with Dr. Ann-Marie Graves. The patient is currently on albuterol nebulized q.4h. p..r.n. 5. Coronary disease/congestive heart failure. An echocardiogram is pending. A Cardiology consultation has been obtained with Dr. Gaming. 6. Diabetes type 2. NovoLog sliding scale has been instituted. 7. Hypothyroidism. Continue Synthroid as above. 8. Hypercholesterolemia. Continue atorvastatin as above. 9. Rheumatoid arthritis. 10. Gastroesophageal reflux disease. Continue Protonix as above. 11. Continue mech vent per pulmonary 12. ABX=zosyn and zyvox 13. CODE STATUS: Full code 14. DVT prophylaxis: Heparin subcu. Harris Greenfield MD Jan 09, 2020 13:11
--- NOTE | 2020-01-09 15:00 | NUR ---
NURSE NOTES: Bed bath given pt with diarrhea stools,kept dry and clean,both arms noted with water seeping on the skin,applied pad to kept dry.
--- NOTE | 2020-01-09 15:18 | NUR ---
CASE MANAGEMENT:REVIEW 01/09/20 SI: COVID PNA. INTUBATED 99.5 102 25 143/76 94% ON VENT SUPPORT W/55% FIO2 WBC+16.0 H/H-8.4/27.3 BUN+82 CR+2.8 IS: IV LINEZOLID Q12 IV ZOSYN Q12 IVF@100/HR DECADRON NG QD HEPARIN SQ Q12 : ICU STATUS DCP: FROM [email or web address]
--- NOTE | 2020-01-09 18:53 | NUR ---
NURSE NOTES: pt stable,no resp distress presented during the shift
--- NOTE | 2020-01-09 19:10 | NUR ---
NURSE HAND-OFF REPORT: Latest Vital Signs: Temperature 99.5 , Pulse 100 , B/P 152 /69 , Respiratory Rate 21 , O2 SAT 100 , Mechanical Ventilator, O2 Flow Rate 10.0 . Vital Sign Comment: with low grade fever the whole AM shift EKG Rhythm: Atrial Fibrillation Rhythm change?: N Notified?: N Response: No New Orders Received Latest Shaw Fall Score: 70 Fall Risk: High Risk Safety Measures: Call light Within Reach, Bed Alarm Zone 2, Side Rails Side Rails x3, Bed position Low and Locked. Fall Precautions: Door Sign Report given to Surinder Ruvalcaba RN.
--- NOTE | 2020-01-09 19:15 | NUR ---
NURSE NOTES: Received patient and report from ALEX Gil. Patient is observed resting in bed and remains obtunded. No pain noted upon assessment. Pt is currently orally intubated ett 7.5 noted to be 23@ lip and appears to be tolerating current vent settings well. Vent settings as follows: AC 16, TV 600 FiO2 55% PEEP 5 with an O2 saturation of 96% noted at this time. Bilateral lower lobe breath sounds noted to be diminished upon auscultation. Pt noted to be AFib on tele monitor with a HR of 112 and no s/sx of acute cardiac distress noted. Left subclavian TLC noted which remains asymptomatic, intact and patent. Central line dressing remains clean, dry and intact. NS currently infusing at 100mL/hr. VS obtained and noted to be stable at this time. OGT noted which remains intact and patent with feeding currently infusing at 55mL/hr with no residual noted. Active bowel sounds noted in all four quadrants; abdomen remains round and soft. Kelsey catheter noted, draining to yellow urine to gravity. Diagnostics reviewed at bedside. Skin alterations noted. Fall, Aspiration and Skin precautions observed. Pt remains resting in bed; Bed remains in the lowest position with the safety wheels engaged, call light within reach, side rails up x3 and bed alarm activated. Will continue plan of care. Will continue to monitor.
[2020-01-09] MEDS: Dyna-Hex 2% Top Sol 2oz TOPIC SCH (20:37)
--- NOTE | 2020-01-09 21:00 | NUR ---
NURSE NOTES: Pt provided with a CHG bed bath, oral care and linen change. Central line dressing remains clean, dry and intact. ROM exercises provided per pt tolerance. Pt tolerated care well. Bedside assessment performed, assessed pt for pain using FLACC scale with a score of 0 noted. Pt repositioned for comfort and safety. Fall, Aspiration and Skin precautions observed. Pt remains resting in bed; Bed remains in the lowest position with the safety wheels engaged, call light within reach, side rails up x3 and bed alarm activated. Will continue plan of care. Will continue to monitor.
--- NOTE | 2020-01-09 21:20 | Cardiology Progress Note ---
Assessment/Plan Assessment/Plan continue respiratory support, the patient is post asystole, her a fib rate is controlled Subjective Subjective the patient is intubated, she is not responsive tachypneic Objective Last 24 Hour Vital Signs Date Time Temp Pulse Resp B/P (MAP) Pulse Ox O2 Delivery O2 Flow Rate FiO2 01/09/20 19:42 125 33 80 01/09/20 19:12 105 28 137/66 (89) 100 01/09/20 18:00 100 21 152/69 (96) 100 01/09/20 17:06 99.5 93 21 144/67 (92) 100 01/09/20 16:08 55 01/09/20 16:00 104 01/09/20 16:00 103 22 167/64 (98) 100 01/09/20 16:00 Mechanical Ventilator Mechanical Ventilator 01/09/20 15:29 91 24 100 01/09/20 15:00 98 26 136/67 (90) 100 01/09/20 14:00 92 27 144/87 (106) 100 01/09/20 13:00 94 25 153/67 (95) 100 01/09/20 12:00 55 01/09/20 12:00 99 25 154/66 (95) 100 01/09/20 12:00 106 01/09/20 12:00 Mechanical Ventilator Mechanical Ventilator 01/09/20 12:00 99.0 01/09/20 11:00 99 25 144/71 (95) 100 01/09/20 10:17 142 33 100 01/09/20 10:04 105 28 155/64 (94) 94 01/09/20 09:00 99.5 102 25 143/76 (98) 94 01/09/20 08:00 93 01/09/20 08:00 Mechanical Ventilator Mechanical Ventilator 01/09/20 08:00 97 22 141/64 (89) 94 01/09/20 08:00 55 01/09/20 07:28 93 22 55 01/09/20 07:00 100 23 146/60 (88) 95 01/09/20 06:00 108 26 153/64 (93) 95 01/09/20 05:00 118 33 163/73 (103) 100 01/09/20 04:00 55 01/09/20 04:00 98.9 102 27 151/74 (99) 94 01/09/20 04:00 Mechanical Ventilator Mechanical Ventilator 01/09/20 03:40 99 26 55 01/09/20 03:12 117 01/09/20 03:00 101 27 155/77 (103) 95 01/09/20 02:00 100 26 144/66 (92) 95 01/09/20 01:00 94 24 125/59 (81) 95 01/09/20 00:00 Mechanical Ventilator Mechanical Ventilator 01/09/20 00:00 98.9 97 26 148/63 (91) 93 01/09/20 00:00 55 01/08/20 23:47 100 01/08/20 23:23 99 27 55 01/08/20 23:00 95 24 135/69 (91) 97 01/08/20 22:00 93 24 137/60 (85) 97 General Appearance: on vent EENT: PERRL/EOMI Neck: no JVD Rhythm: Afib Cardiovascular: tachycardia, systolic murmur, gallop/S3 Respiratory/Chest: rhonchi - bilaterally, inspiratory wheezing Abdomen: soft Extremities: normal inspection Intake and Output 01/08/20 01/09/20 19:00 07:00 Intake Total 2761.5 ml 2188.333 ml Output Total 375 ml 380 ml Balance 2386.5 ml 1808.333 ml Free Water 30 ml IV Total 2426.5 ml 1608.333 ml Tube Feeding 335 ml 520 ml Blood Product 30 ml Output Urine Total 375 ml 380 ml # Bowel Movements 1 Laboratory Tests Test 01/09/20 00:27 01/09/20 04:00 01/09/20 04:50 01/09/20 08:18 POC Whole Blood Glucose Pending 136 MG/DL (74-106) H Sodium Level 139 MMOL/L (136-145) Potassium Level 3.8 MMOL/L (3.5-5.1) Chloride Level 103 MMOL/L (98-107) Carbon Dioxide Level 22 MMOL/L (21-32) Anion Gap 14 mmol/L (5-15) Blood Urea Nitrogen 82 mg/dL (7-18) H Creatinine 2.8 MG/DL (0.55-1.30) H Estimat Glomerular Filtration Rate 16.0 mL/min (>60) Glucose Level 155 MG/DL (74-106) H Uric Acid 9.1 MG/DL (2.6-7.2) H Calcium Level 8.2 MG/DL (8.5-10.1) L Phosphorus Level 3.3 MG/DL (2.5-4.9) Magnesium Level 1.8 MG/DL (1.8-2.4) Iron Level 29 ug/dL (50-175) L Total Iron Binding Capacity 129 ug/dL (250-450) L Percent Iron Saturation 22 % (15-50) Unsaturated Iron Binding 100 ug/dL (112-346) L Ferritin > 2000 NG/ML (8-388) H Total Bilirubin 0.5 MG/DL (0.2-1.0) Gamma Glutamyl Transpeptidase 111 U/L (5-85) H Aspartate Amino Transf (AST/SGOT) 116 U/L (15-37) H Alanine Aminotransferase (ALT/SGPT) 470 U/L (12-78) H Alkaline Phosphatase 164 U/L (46-116) H Total Protein 6.0 G/DL (6.4-8.2) L Albumin 2.5 G/DL (3.4-5.0) L Globulin 3.5 g/dL Albumin/Globulin Ratio 0.7 (1.0-2.7) L Vitamin B12 Level 1449 PG/ML (193-986) H Folate 17.8 NG/ML (8.6-58.9) Arterial Blood pH 7.392 (7.350-7.450) Arterial Blood Partial Pressure CO2 33.4 mmHg (35.0-45.0) L Arterial Blood Partial Pressure O2 67.3 mmHg (75.0-100.0) L Arterial Blood HCO3 19.9 mmol/L (22.0-26.0) L Arterial Blood Oxygen Saturation 93.0 % (95-100) L Arterial Blood Base Excess -4.4 (-2-2) L Chester Test Positive Test 01/09/20 12:38 01/09/20 13:00 01/09/20 16:13 POC Whole Blood Glucose 165 MG/DL (74-106) H Pending White Blood Count 16.0 K/UL (4.8-10.8) H Red Blood Count 3.32 M/UL (4.20-5.40) L Hemoglobin 8.4 G/DL (12.0-16.0) L Hematocrit 27.3 % (37.0-47.0) L Mean Corpuscular Volume 82 FL (80-99) Mean Corpuscular Hemoglobin 25.4 PG (27.0-31.0) L Mean Corpuscular Hemoglobin Concent 31.0 G/DL (32.0-36.0) L Red Cell Distribution Width 16.8 % (11.6-14.8) H Platelet Count 155 K/UL (150-450) Mean Platelet Volume 8.0 FL (6.5-10.1) Neutrophils (%) (Auto) % (45.0-75.0) Lymphocytes (%) (Auto) % (20.0-45.0) Monocytes (%) (Auto) % (1.0-10.0) Eosinophils (%) (Auto) % (0.0-3.0) Basophils (%) (Auto) % (0.0-2.0) Differential Total Cells Counted 100 Neutrophils % (Manual) 91 % (45-75) H Lymphocytes % (Manual) 2 % (20-45) L Monocytes % (Manual) 7 % (1-10) Eosinophils % (Manual) 0 % (0-3) Basophils % (Manual) 0 % (0-2) Band Neutrophils 0 % (0-8) Platelet Estimate Adequate Platelet Morphology Normal Hypochromasia 2+ Anisocytosis 1+ C-Reactive Protein, Quantitative 5.7 mg/dL (0.00-0.90) H Microbiology Date/Time Source Procedure Growth Status 01/07/20 11:20 Blood Blood Culture - Preliminary NO GROWTH AFTER 24 HOURS Resulted 01/07/20 11:10 Blood Blood Culture - Preliminary NO GROWTH AFTER 24 HOURS Resulted Nasra Yeung MD Jan 09, 2020 21:20
--- NOTE | 2020-01-09 23:00 | NUR ---
NURSE NOTES: Bedside assessment performed, assessed pt with a FLACC scale of 7 noted. Pt remains clean and dry. Pt continues to tolerate current vent settings well. However, SBP and HR remain elevated. AFib RVR (120-140) noted. Will page wire cutter regarding change in pt condition. Pt repositioned for comfort and safety. Fall, Aspiration, Seizure and Skin precautions observed. Pt remains resting in bed; Bed remains in the lowest position with the safety wheels engaged, call light within reach, side rails up x3 and bed alarm activated. Will continue plan of care. Will continue to monitor.
--- NOTE | 2020-01-09 23:20 | NUR ---
NURSE NOTES: Message left for MD Yeung at this time. Patient HR 120-140's A-fib. Awaiting call back.
--- NOTE | 2020-01-09 23:24 | NUR ---
NURSE NOTES: Message left for MD Graves at this time. Peak pressures noted to be in the 40's. Also informed him patient HR 120-140's A-Fib. BP 183/105. SPB does not go less than 170. Awaiting call back
--- NOTE | 2020-01-09 23:40 | NUR ---
NURSE NOTES: MD Graves called back with sedation orders at this time. Orders read back and confirmed by .
[2020-01-09] MEDS ORDERED: Morphine Sulfate 4mg/ml Inj (IV USE ONLY) IVP PRN (23:45)
[2020-01-09] MEDS: LORazepam Inj 2mg/ml 1ml IV PRN (23:52)
--- NOTE | 2020-01-09 23:55 | NUR ---
NURSE NOTES: Dr Yeung, covering for primary apprentice lineman third step, called back to discuss current pt condition and plan of care. Orders received to restart Diltiazem at 5mg/hr now. Will carry out orders and continue to monitor.
[2020-01-09] MEDS ORDERED: dilTIAZem Premix 125mg/125ml 125 ML IVPB ONE (23:57)
[2020-01-10] VITALS (42 sets, daily range): BP systolic 121–176; BP diastolic 42–97
[2020-01-10] MEDS: Piperacillin/Tazobactam 3.375 GM in NS 110 ML IVPB SCH ×2 (00:20→12:46)
[2020-01-10] MEDS: dilTIAZem Premix 125mg/125ml 125 ML IVPB SCH ×2 (00:20→18:52)
--- NOTE | 2020-01-10 01:00 | NUR ---
NURSE NOTES: Bedside assessment performed, assessed pt for pain with a FLACC score of 0 noted. Diltazem gtt continues to infuse at 5mg/hr with no adverse effects noted. Desirable decrease in HR and BP noted consistent with indication for order. Pt repositioned for safety and comfort. Fall, Aspiration and Skin precautions observed. Pt remains resting in bed; Bed remains in the lowest position with the safety wheels engaged, call light within reach, side rails up x3 and bed alarm activated. Will continue plan of care. Will continue to monitor.
--- NOTE | 2020-01-10 03:00 | NUR ---
NURSE NOTES: Bedside assessment performed, assessed pt for pain with a FLACC score of 0 noted. Pt observed to be resting comfortably and remains clean and dry. Diltazem gtt continues to infuse at 5mg/hr with no adverse effects noted. HR remains consistently >100 and SBP remains consistently >140. Pt repositioned for safety and comfort. Fall, Aspiration and Skin precautions observed. Pt remains resting in bed; Bed remains in the lowest position with the safety wheels engaged, call light within reach, side rails up x3 and bed alarm activated. Will continue plan of care. Will continue to monitor.
--- NOTE | 2020-01-10 05:00 | NUR ---
NURSE NOTES: Bedside assessment performed, assessed pt for pain with a FLACC score of 0 noted. Diltazem gtt continues to infuse at 5mg/hr with no adverse effects noted. Desirable decrease in HR which is noted to be <100 and SBP noted to be <140 at this time, effects noted to be consistent with indication for order. Pt repositioned for safety and comfort. Fall, Aspiration and Skin precautions observed. Pt remains resting in bed; Bed remains in the lowest position with the safety wheels engaged, call light within reach, side rails up x3 and bed alarm activated. Will continue plan of care. Will continue to monitor.
[2020-01-10] MEDS: NovoLOG Insulin Flexpen SUBQ SCH ×3 (05:06→19:04)
[2020-01-10 05:32] LABS: HEMATOCRIT 27.9 % (37.0-47.0); HEMOGLOBIN 8.6 G/DL (12.0-16.0); MEAN CORPUSCULAR VOLUME 83 FL (80-99); PLATELET COUNT 205 K/UL (150-450); RED BLOOD COUNT 3.35 M/UL (4.20-5.40); RED CELL DISTRIBUTION WIDTH 17.5 % (11.6-14.8); WHITE BLOOD COUNT 19.2 K/UL (4.8-10.8)
[2020-01-10 05:59] LABS: ALBUMIN 2.3 G/DL (3.4-5.0); ALBUMIN/GLOBULIN RATIO 0.6 (1.0-2.7); BILIRUBIN,TOTAL 0.5 MG/DL (0.2-1.0); CALCIUM 8.2 MG/DL (8.5-10.1); CREATININE 2.6 MG/DL (0.55-1.30); POTASSIUM 3.7 MMOL/L (3.5-5.1)
--- NOTE | 2020-01-10 06:41 | NUR ---
RD ASSESSMENT & RECOMMENDATIONS SEE CARE ACTIVITY FOR COMPLETE ASSESSMENT DAILY ESTIMATED NEEDS: Needs based on Critical care 54kg abw 22-30 kcals/kg 4754-3728 total kcals 1.25-2 g protein/kg 68-108 g total protein 20-25 mL/kg 4305-6333 total fluid mLs NUTRITION DIAGNOSIS: Swallowing difficulty r/t resp status as evidenced by pt adm w/ covid 19 ++, on bipap, now s/p code blue, intubated, on OGT feeds. CURRENT TF:VITAL AF 1.2 @ 55ml/hr x22 hrs ENTERAL NUTRITION RECOMMENDATIONS: (WITHOUT SYNTHROID QD) VITAL AF 1.2 @ 50ml/hr x 24 hrs to provide 1200, 1440kcal, 90g prot, 973ml free water * Without Synthroid, no need to hold TF -> rec continuous TF of Vital AF 1.2 @ 50ml/hr x 24 hrs -> HOB over 30 degrees/ water flush per MD * If Synthroid is re-added to med list, hold 1 hr before and after Synthroid -> rec Vital AF 1.2 @ 55ml/hr x22 hrs ADDITIONAL RECOMMENDATIONS: 1) Maintain calibrated bed scale wts daily 2) Monitor lytes, replete as needed 3) Monitor BGs, need for additional hypoglycemics 4) Feed w/ hemodynamic stability 5) When TF is tolerated at goal, add DONA BID for skin integrity
--- NOTE | 2020-01-10 07:33 | NUR ---
NURSE HAND-OFF REPORT: Latest Vital Signs: Temperature 98.9 , Pulse 98 , B/P 156 /50 , Respiratory Rate 22 , O2 SAT 96 , Mechanical Ventilator, O2 Flow Rate 10.0 . Vital Sign Comment: - EKG Rhythm: Atrial Fibrillation Rhythm change?: N Notified?: Y -Dr. Lowry Orders: Restart Dilt @ 5mg/hr Latest Shaw Fall Score: 70 Fall Risk: High Risk Safety Measures: Call light Within Reach, Bed Alarm Zone 2, Side Rails Side Rails x3, Bed position Low and Locked. Fall Precautions: Door Sign Report given to ALEX Cronin. Endorsed plan of care.
[2020-01-10] MEDS: Pantoprazole Inj IV SCH ×2 (09:43→20:42)
[2020-01-10] MEDS: Heparin 5000 units/ml inj SUBQ SCH ×2 (09:43→20:43)
--- NOTE | 2020-01-10 09:45 | NUR ---
NURSE NOTES: Dr. Mandel updated on patient urine output, urine remains above 30mls/hr, no verbal orders given at this time.
[2020-01-10 09:53] LABS: PHOSPHORUS 3.7 MG/DL (2.5-4.9)
--- NOTE | 2020-01-10 10:07 | Pulmonolgy Critical Care Note ---
Critical Care - Asmt/Plan Problems: (1) Acute respiratory failure due to COVID-19 (2) Acute on chronic systolic (congestive) heart failure (3) Atrial fibrillation (4) Diabetes mellitus (5) CHF (congestive heart failure) (6) Hypothyroidism (7) Chronic respiratory failure (8) History of hypertension Respiratory: monitor respiratory rate, adjust FIO2, CXR Cardiac: continue to monitor HR/BP Renal: F/U I&O, keep IV fluid, other - creatinine has peaked Infectious Disease: check cultures Gastrointestinal: continue feedings/current rate Endocrine: monitor blood sugar Neurologic: PRN Ativan Affect: PRN ativan 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: credit reporter, cardio, renal Discussed with: nurses, consultants, case resolution specialistbase manager - Objective Last 24 Hour Vital Signs Date Time Temp Pulse Resp B/P (MAP) Pulse Ox O2 Delivery O2 Flow Rate FiO2 01/10/20 07:20 99 23 80 01/10/20 07:00 98 22 156/50 (85) 96 01/10/20 06:00 96 25 148/61 (90) 96 01/10/20 05:00 98 23 147/50 (82) 97 01/10/20 04:00 Mechanical Ventilator Mechanical Ventilator 01/10/20 04:00 55 01/10/20 04:00 98.9 93 22 143/54 (83) 97 01/10/20 03:22 90 01/10/20 03:14 101 27 80 01/10/20 03:00 93 21 147/62 (90) 97 01/10/20 02:00 96 21 144/60 (88) 97 01/10/20 01:30 96 21 146/69 (94) 98 01/10/20 01:00 99 21 137/60 (85) 98 01/10/20 00:30 109 21 145/62 (89) 99 01/10/20 00:22 112 19 137/64 98 01/10/20 00:00 99.0 112 19 137/64 (88) 98 01/10/20 00:00 55 01/10/20 00:00 Mechanical Ventilator Mechanical Ventilator 01/09/20 23:52 123 32 178/85 94 01/09/20 23:32 114 01/09/20 23:28 99.6 01/09/20 23:24 123 32 80 01/09/20 23:00 123 33 178/85 (116) 94 01/09/20 22:00 116 31 152/67 (95) 97 01/09/20 21:00 111 29 159/68 (98) 95 01/09/20 20:00 98.9 114 31 163/69 (100) 94 01/09/20 20:00 Mechanical Ventilator Mechanical Ventilator 01/09/20 20:00 55 01/09/20 19:42 125 33 80 01/09/20 19:15 105 01/09/20 19:12 105 28 137/66 (89) 100 01/09/20 18:00 100 21 152/69 (96) 100 01/09/20 17:06 99.5 93 21 144/67 (92) 100 01/09/20 16:08 55 01/09/20 16:00 104 01/09/20 16:00 103 22 167/64 (98) 100 01/09/20 16:00 Mechanical Ventilator Mechanical Ventilator 01/09/20 15:29 91 24 100 01/09/20 15:00 98 26 136/67 (90) 100 01/09/20 14:00 92 27 144/87 (106) 100 01/09/20 13:00 94 25 153/67 (95) 100 01/09/20 12:00 55 01/09/20 12:00 99 25 154/66 (95) 100 01/09/20 12:00 106 01/09/20 12:00 Mechanical Ventilator Mechanical Ventilator 01/09/20 12:00 99.0 01/09/20 11:00 99 25 144/71 (95) 100 01/09/20 10:17 142 33 100 Status: sedated Condition: critical HEENT: atraumatic Lungs: clear, rales, rhonchi Heart: HR/BP stable Abdomen: soft, feeding tube Micro: Microbiology Date/Time Source Procedure Growth Status 01/09/20 04:58 Sputum Induced Gram Stain - Final Resulted 01/09/20 04:58 Sputum Culture - Preliminary Gram Negative Bacillus 1 Resulted 01/07/20 11:20 Blood Blood Culture - Preliminary NO GROWTH AFTER 48 HOURS Resulted 01/07/20 11:10 Blood Blood Culture - Preliminary NO GROWTH AFTER 48 HOURS Resulted Accucheck: 190 Critical Care - Subjective ROS Limited/Unobtainable: Yes Condition: critical EKG Rhythm: Sinus Rhythm FI02: 80 Vent Support Breath Rate: 16 Vent Support Mode: AC Vent Tidal Volume: 600 Sputum Amount: Small PEEP: 5.0 PIP: 46 Tube Feeding Amount: 55 I&O: Intake and Output 01/09/20 01/10/20 19:00 07:00 Intake Total 2060 ml 2321.663 ml Output Total 700 ml 580 ml Balance 1360 ml 1741.663 ml Free Water 200 ml 90 ml IV Total 1100 ml 1571.663 ml Tube Feeding 640 ml 660 ml Other 120 ml Output Urine Total 700 ml 580 ml # Bowel Movements 1 ET-Tube: 7.5 ET Position: 23 Labs: Laboratory Tests Test 01/09/20 12:38 01/09/20 13:00 01/09/20 16:13 01/09/20 23:01 POC Whole Blood Glucose 165 MG/DL (74-106) H Pending Pending White Blood Count 16.0 K/UL (4.8-10.8) H Red Blood Count 3.32 M/UL (4.20-5.40) L Hemoglobin 8.4 G/DL (12.0-16.0) L Hematocrit 27.3 % (37.0-47.0) L Mean Corpuscular Volume 82 FL (80-99) Mean Corpuscular Hemoglobin 25.4 PG (27.0-31.0) L Mean Corpuscular Hemoglobin Concent 31.0 G/DL (32.0-36.0) L Red Cell Distribution Width 16.8 % (11.6-14.8) H Platelet Count 155 K/UL (150-450) Mean Platelet Volume 8.0 FL (6.5-10.1) Neutrophils (%) (Auto) % (45.0-75.0) Lymphocytes (%) (Auto) % (20.0-45.0) Monocytes (%) (Auto) % (1.0-10.0) Eosinophils (%) (Auto) % (0.0-3.0) Basophils (%) (Auto) % (0.0-2.0) Differential Total Cells Counted 100 Neutrophils % (Manual) 91 % (45-75) H Lymphocytes % (Manual) 2 % (20-45) L Monocytes % (Manual) 7 % (1-10) Eosinophils % (Manual) 0 % (0-3) Basophils % (Manual) 0 % (0-2) Band Neutrophils 0 % (0-8) Platelet Estimate Adequate Platelet Morphology Normal Hypochromasia 2+ Anisocytosis 1+ C-Reactive Protein, Quantitative 5.7 mg/dL (0.00-0.90) H Test 01/10/20 04:43 01/10/20 04:53 01/10/20 07:42 01/10/20 09:00 POC Whole Blood Glucose Pending White Blood Count 19.2 K/UL (4.8-10.8) H Red Blood Count 3.35 M/UL (4.20-5.40) L Hemoglobin 8.6 G/DL (12.0-16.0) L Hematocrit 27.9 % (37.0-47.0) L Mean Corpuscular Volume 83 FL (80-99) Mean Corpuscular Hemoglobin 25.7 PG (27.0-31.0) L Mean Corpuscular Hemoglobin Concent 30.8 G/DL (32.0-36.0) L Red Cell Distribution Width 17.5 % (11.6-14.8) H Platelet Count 205 K/UL (150-450) Mean Platelet Volume 7.6 FL (6.5-10.1) Neutrophils (%) (Auto) % (45.0-75.0) Lymphocytes (%) (Auto) % (20.0-45.0) Monocytes (%) (Auto) % (1.0-10.0) Eosinophils (%) (Auto) % (0.0-3.0) Basophils (%) (Auto) % (0.0-2.0) Differential Total Cells Counted 100 Neutrophils % (Manual) 79 % (45-75) H Lymphocytes % (Manual) 7 % (20-45) L Monocytes % (Manual) 7 % (1-10) Eosinophils % (Manual) 0 % (0-3) Basophils % (Manual) 0 % (0-2) Band Neutrophils 7 % (0-8) Platelet Estimate Adequate Platelet Morphology Normal Hypochromasia 1+ Anisocytosis 1+ Sodium Level 142 MMOL/L (136-145) Potassium Level 3.7 MMOL/L (3.5-5.1) Chloride Level 106 MMOL/L (98-107) Carbon Dioxide Level 21 MMOL/L (21-32) Anion Gap 15 mmol/L (5-15) Blood Urea Nitrogen 78 mg/dL (7-18) H Creatinine 2.6 MG/DL (0.55-1.30) H Estimat Glomerular Filtration Rate 17.5 mL/min (>60) Glucose Level 201 MG/DL (74-106) H Calcium Level 8.2 MG/DL (8.5-10.1) L Total Bilirubin 0.5 MG/DL (0.2-1.0) Aspartate Amino Transf (AST/SGOT) 71 U/L (15-37) H Alanine Aminotransferase (ALT/SGPT) 311 U/L (12-78) H Alkaline Phosphatase 145 U/L (46-116) H Total Protein 6.2 G/DL (6.4-8.2) L Albumin 2.3 G/DL (3.4-5.0) L Globulin 3.9 g/dL Albumin/Globulin Ratio 0.6 (1.0-2.7) L Arterial Blood pH 7.318 (7.350-7.450) Arterial Blood Partial Pressure CO2 43.9 mmHg (35.0-45.0) Arterial Blood Partial Pressure O2 81.9 mmHg (75.0-100.0) Arterial Blood HCO3 22.0 mmol/L (22.0-26.0) Arterial Blood Oxygen Saturation 95.9 % (95-100) Arterial Blood Base Excess -3.9 (-2-2) L Chester Test Positive Phosphorus Level 3.7 MG/DL (2.5-4.9) Magnesium Level 1.8 MG/DL (1.8-2.4) Ann-Marie Graves MD Jan 10, 2020 10:07
--- NOTE | 2020-01-10 10:20 | NUR ---
NURSE NOTES: Dr. Graves updated on patient condition, remains on mechanical ventilator with setting of AC 16, Tv: 600, Fio2 80% with peep of 5, peak pressures remains high at 51-55, however after suctioning peak pressures decrease to approximately 30-45. no orders given at this time.
--- NOTE | 2020-01-10 11:50 | Infectious Diseases Prog Note ---
Assessment/Plan Assessment: Asystole arrest Sepsis COVID19 pneumonia Acute hypoxic resp failure sp NRB> Bipap 100% Fio2> VDRF 100% -01/01 CXR: Vascular congestion/developing failure and bilateral patchy infiltrates, slightly worse since prior exam. Small bilateral pleural effusions.Prominent mediastinum likely due to tortuous/ectatic thoracic aorta. -12/31 CXR: Centrally predominant interstitial and airspace opacities, pulmonary edema most likely. Cardiomegaly. Fever; SP No leukocytosis Dm2 COPD HTN former smoker CAD CHF RA GERD hypothyroidism Afib [place] resident ([facility]) Plan: - Cont Zosyn #4 and Linazolid #4 - F/u repeat blood, Urine and Sp Cx -Decadron #7/10 -SP Remdesivir #5 per [facility] criteria- patient cannot provide consent; Benefits outweigh risks. - 01/07/20 Ceftriaxone #7 -12/31 SP Cefepime x1, Flagyl x1 -f/u cx -Monitor CBC/CMP, temperatures -ETT/ICU care D/w RN Thank you for consulting [facility]. Will continue to follow along with you. Subjective Allergies: Coded Allergies: DOXYCYCLINE (Verified Allergy, Unknown, 04/04/19) RIFAMPIN (Verified Allergy, Unknown, 04/04/19) Afebrile On Vent 80% O2 WBCs 19 from 17 CXR - PNA Objective Last 24 Hour Vital Signs Date Time Temp Pulse Resp B/P (MAP) Pulse Ox O2 Delivery O2 Flow Rate FiO2 01/10/20 11:00 112 29 168/97 (120) 93 01/10/20 10:00 95 26 149/65 (93) 95 01/10/20 09:30 99 25 148/48 (81) 94 01/10/20 09:00 103 27 148/61 (90) 94 01/10/20 08:30 101 27 129/54 (79) 94 01/10/20 08:00 113 01/10/20 08:00 Mechanical Ventilator Mechanical Ventilator 01/10/20 08:00 99.3 91 20 139/56 (83) 97 01/10/20 08:00 80 01/10/20 07:30 99 21 143/42 (75) 96 01/10/20 07:20 99 23 80 01/10/20 07:00 98 22 156/50 (85) 96 01/10/20 06:00 96 25 148/61 (90) 96 01/10/20 05:00 98 23 147/50 (82) 97 01/10/20 04:00 Mechanical Ventilator Mechanical Ventilator 01/10/20 04:00 55 01/10/20 04:00 98.9 93 22 143/54 (83) 97 01/10/20 03:22 90 01/10/20 03:14 101 27 80 01/10/20 03:00 93 21 147/62 (90) 97 01/10/20 02:00 96 21 144/60 (88) 97 01/10/20 01:30 96 21 146/69 (94) 98 01/10/20 01:00 99 21 137/60 (85) 98 01/10/20 00:30 109 21 145/62 (89) 99 01/10/20 00:22 112 19 137/64 98 01/10/20 00:00 99.0 112 19 137/64 (88) 98 01/10/20 00:00 55 01/10/20 00:00 Mechanical Ventilator Mechanical Ventilator 01/09/20 23:52 123 32 178/85 94 01/09/20 23:32 114 01/09/20 23:28 99.6 01/09/20 23:24 123 32 80 01/09/20 23:00 123 33 178/85 (116) 94 01/09/20 22:00 116 31 152/67 (95) 97 01/09/20 21:00 111 29 159/68 (98) 95 01/09/20 20:00 98.9 114 31 163/69 (100) 94 01/09/20 20:00 Mechanical Ventilator Mechanical Ventilator 01/09/20 20:00 55 01/09/20 19:42 125 33 80 01/09/20 19:15 105 01/09/20 19:12 105 28 137/66 (89) 100 01/09/20 18:00 100 21 152/69 (96) 100 01/09/20 17:06 99.5 93 21 144/67 (92) 100 01/09/20 16:08 55 01/09/20 16:00 104 01/09/20 16:00 103 22 167/64 (98) 100 01/09/20 16:00 Mechanical Ventilator Mechanical Ventilator 01/09/20 15:29 91 24 100 01/09/20 15:00 98 26 136/67 (90) 100 01/09/20 14:00 92 27 144/87 (106) 100 01/09/20 13:00 94 25 153/67 (95) 100 01/09/20 12:00 55 01/09/20 12:00 99 25 154/66 (95) 100 01/09/20 12:00 106 01/09/20 12:00 Mechanical Ventilator Mechanical Ventilator 01/09/20 12:00 99.0 Height (Feet): 5 Height (Inches): 2.00 Weight (Pounds): 155 GENERAL: On Vent 80%, Somnolent HEENT: NCAT, MMM LUNGS: Equal rise and fall of chest B/L no accessory muscle use ABDOMEN: Soft, nondistended EXTREMITIES: No cyanosis, clubbing, or edema. Microbiology Date/Time Source Procedure Growth Status 01/09/20 04:58 Sputum Induced Gram Stain - Final Resulted 01/09/20 04:58 Sputum Culture - Preliminary Gram Negative Bacillus 1 Resulted Laboratory Tests Test 01/09/20 12:38 01/09/20 13:00 01/09/20 16:13 01/09/20 23:01 POC Whole Blood Glucose 165 MG/DL (74-106) H Pending Pending White Blood Count 16.0 K/UL (4.8-10.8) H Red Blood Count 3.32 M/UL (4.20-5.40) L Hemoglobin 8.4 G/DL (12.0-16.0) L Hematocrit 27.3 % (37.0-47.0) L Mean Corpuscular Volume 82 FL (80-99) Mean Corpuscular Hemoglobin 25.4 PG (27.0-31.0) L Mean Corpuscular Hemoglobin Concent 31.0 G/DL (32.0-36.0) L Red Cell Distribution Width 16.8 % (11.6-14.8) H Platelet Count 155 K/UL (150-450) Mean Platelet Volume 8.0 FL (6.5-10.1) Neutrophils (%) (Auto) % (45.0-75.0) Lymphocytes (%) (Auto) % (20.0-45.0) Monocytes (%) (Auto) % (1.0-10.0) Eosinophils (%) (Auto) % (0.0-3.0) Basophils (%) (Auto) % (0.0-2.0) Differential Total Cells Counted 100 Neutrophils % (Manual) 91 % (45-75) H Lymphocytes % (Manual) 2 % (20-45) L Monocytes % (Manual) 7 % (1-10) Eosinophils % (Manual) 0 % (0-3) Basophils % (Manual) 0 % (0-2) Band Neutrophils 0 % (0-8) Platelet Estimate Adequate Platelet Morphology Normal Hypochromasia 2+ Anisocytosis 1+ C-Reactive Protein, Quantitative 5.7 mg/dL (0.00-0.90) H Test 01/10/20 04:43 01/10/20 04:53 01/10/20 07:42 01/10/20 09:00 POC Whole Blood Glucose Pending White Blood Count 19.2 K/UL (4.8-10.8) H Red Blood Count 3.35 M/UL (4.20-5.40) L Hemoglobin 8.6 G/DL (12.0-16.0) L Hematocrit 27.9 % (37.0-47.0) L Mean Corpuscular Volume 83 FL (80-99) Mean Corpuscular Hemoglobin 25.7 PG (27.0-31.0) L Mean Corpuscular Hemoglobin Concent 30.8 G/DL (32.0-36.0) L Red Cell Distribution Width 17.5 % (11.6-14.8) H Platelet Count 205 K/UL (150-450) Mean Platelet Volume 7.6 FL (6.5-10.1) Neutrophils (%) (Auto) % (45.0-75.0) Lymphocytes (%) (Auto) % (20.0-45.0) Monocytes (%) (Auto) % (1.0-10.0) Eosinophils (%) (Auto) % (0.0-3.0) Basophils (%) (Auto) % (0.0-2.0) Differential Total Cells Counted 100 Neutrophils % (Manual) 79 % (45-75) H Lymphocytes % (Manual) 7 % (20-45) L Monocytes % (Manual) 7 % (1-10) Eosinophils % (Manual) 0 % (0-3) Basophils % (Manual) 0 % (0-2) Band Neutrophils 7 % (0-8) Platelet Estimate Adequate Platelet Morphology Normal Hypochromasia 1+ Anisocytosis 1+ Sodium Level 142 MMOL/L (136-145) Potassium Level 3.7 MMOL/L (3.5-5.1) Chloride Level 106 MMOL/L (98-107) Carbon Dioxide Level 21 MMOL/L (21-32) Anion Gap 15 mmol/L (5-15) Blood Urea Nitrogen 78 mg/dL (7-18) H Creatinine 2.6 MG/DL (0.55-1.30) H Estimat Glomerular Filtration Rate 17.5 mL/min (>60) Glucose Level 201 MG/DL (74-106) H Calcium Level 8.2 MG/DL (8.5-10.1) L Total Bilirubin 0.5 MG/DL (0.2-1.0) Aspartate Amino Transf (AST/SGOT) 71 U/L (15-37) H Alanine Aminotransferase (ALT/SGPT) 311 U/L (12-78) H Alkaline Phosphatase 145 U/L (46-116) H Total Protein 6.2 G/DL (6.4-8.2) L Albumin 2.3 G/DL (3.4-5.0) L Globulin 3.9 g/dL Albumin/Globulin Ratio 0.6 (1.0-2.7) L Arterial Blood pH 7.318 (7.350-7.450) Arterial Blood Partial Pressure CO2 43.9 mmHg (35.0-45.0) Arterial Blood Partial Pressure O2 81.9 mmHg (75.0-100.0) Arterial Blood HCO3 22.0 mmol/L (22.0-26.0) Arterial Blood Oxygen Saturation 95.9 % (95-100) Arterial Blood Base Excess -3.9 (-2-2) L Chester Test Positive Phosphorus Level 3.7 MG/DL (2.5-4.9) Magnesium Level 1.8 MG/DL (1.8-2.4) Current Medications Medications (Trade) Dose Ordered Sig/Brett Route PRN Reason Start Time Stop Time Status Last Admin Dose Admin Acetaminophen (Tylenol) 650 mg Q4H PRN ORAL FEVER 01/01/20 07:00 01/31/20 06:59 01/09/20 22:58 Acetaminophen (Tylenol) 650 mg Q4H PRN RECTAL Temp >100.5 01/03/20 09:30 02/02/20 09:29 01/03/20 12:18 Albuterol/ Ipratropium (Combivent Respimat) 1 puff Q4H PRN INH Shortness of Breath 01/05/20 20:00 02/04/20 19:59 Allopurinol (allopurinoL) 300 mg DAILY NG 01/07/20 10:45 02/06/20 10:44 01/10/20 09:43 Chlorhexidine Gluconate (Silvia-Hex 2%) 1 applic DAILY@2000 TOPIC 01/07/20 20:00 04/06/20 19:59 01/09/20 20:37 Dexamethasone (Decadron) 4 mg DAILY ORAL 01/01/20 09:00 01/11/20 10:00 01/10/20 09:43 Dextrose (Dextrose 50%) 25 ml Q30M PRN IV Hypoglycemia 01/01/20 08:45 03/31/20 08:44 Dextrose (Dextrose 50%) 50 ml Q30M PRN IV Hypoglycemia 01/01/20 08:45 03/31/20 08:44 Diltiazem HCl 125 ml @ 5 mls/hr Q24H IVPB 01/10/20 00:00 01/10/20 23:59 01/10/20 00:20 Diltiazem HCl (Cardizem) 15 mg Q12H PRN IVP For High Blood Pressure 01/03/20 07:00 02/02/20 06:59 Heparin Sodium (Porcine) (Heparin 5000 units/ml) 5,000 units EVERY 12 HOURS SUBQ 01/01/20 09:00 02/15/20 08:59 01/10/20 09:43 Insulin Aspart (NovoLOG) Q6HR SUBQ 01/09/20 00:00 03/31/20 11:29 01/10/20 05:06 Linezolid 300 ml @ 300 mls/hr Q12HR IVPB 01/07/20 21:00 01/14/20 20:59 01/10/20 09:42 Lorazepam (Ativan 2mg/ml 1ml) 2 mg Q2H PRN IV For Anxiety 01/09/20 23:45 01/16/20 23:44 01/09/20 23:52 Morphine Sulfate (Morphine Sulfate) 4 mg Q4H PRN IVP For Pain 01/09/20 23:45 01/16/20 23:44 01/09/20 23:50 Ondansetron HCl (Zofran) 4 mg Q6H PRN IVP Nausea & Vomiting 01/01/20 07:00 01/31/20 06:59 Pantoprazole (Protonix) 40 mg Q12HR IV 01/05/20 21:00 02/04/20 08:59 01/10/20 09:43 Piperacillin Sod/ Tazobactam Sod 3.375 gm/Sodium Chloride 110 ml @ 27.5 mls/hr Q12H IVPB 01/07/20 13:00 01/14/20 12:59 01/10/20 00:20 Sodium Chloride 1,000 ml @ 100 mls/hr Q10H IV 01/08/20 08:15 02/07/20 08:14 01/10/20 09:44 Mehrdad Yepez MD Jan 10, 2020 11:50
--- NOTE | 2020-01-10 12:00 | Nephrology Progress Note ---
Assessment/Plan Problem List: (1) BORIS (acute kidney injury) (2) 2019 novel coronavirus detected (3) Hypothyroidism (4) Diabetes mellitus (5) Atrial fibrillation (6) Shock liver Assessment 85-year-old female admitted 5 days ago, at the time serum creatinine was 0.9 and today the serum creatinine is 1.4, most likely BORIS Hypernatremia secondary to free water deficit Prerenal azotemia COVID-19 virus detected Acute on chronic systolic congestive heart failure Atrial fibrillation Diabetes mellitus Hypothyroidism Hypertension Acute on chronic respiratory failure Plan January 09: Lab reviewed. Serum creatinine lower at 2.6. Liver enzymes are lowering. Patient remains full code and remains intubated. Continue current management. Continue to follow renal parameters. Continue per consultants. Start Cardizem 30 mg every 8 hours via NG tube for elevated blood pressure January 08: Lab reviewed. Serum creatinine 2.8. LFTs improving. Remains intubated. Remains full code. Continue per consultants. Continue to monitor renal parameters. Avoid nephrotoxic's as possible. January 07: Labs reviewed. Serum creatinine robby to 2.9. Liver enzymes are improving. Patient off pressors. Patient full code. Patient intubated on ventilator. Continue to monitor renal parameters. IV fluid changed to normal saline. Continue per consultants. Anemia work-up initiated, iron panel B12 and folate level ordered. January 06: Labs reviewed. Serum creatinine up to 2.6. Medications reviewed. Continue to follow renal parameters and electrolytes. Continue to monitor liver enzymes. Allopurinol for high uric acid given. Discussed with RN. January 05: Blood pressure stable off pressors. Continue IV fluids. Monitor renal parameters. Monitor liver function tests. Hold oral Synthroid at this time. Continue treatment for sepsis and COVID-19 infection IV fluids Keep the blood pressure over 100 systolic Monitor renal parameters and electrolytes Monitor liver function tests Avoid nephrotoxic's as possible Urine studies Digoxin level Thyroid function tests Per orders Subjective ROS Limited/Unobtainable: Yes Objective Objective Last 24 Hour Vital Signs Date Time Temp Pulse Resp B/P (MAP) Pulse Ox O2 Delivery O2 Flow Rate FiO2 01/10/20 11:00 112 29 168/97 (120) 93 01/10/20 10:00 95 26 149/65 (93) 95 01/10/20 09:30 99 25 148/48 (81) 94 01/10/20 09:00 103 27 148/61 (90) 94 01/10/20 08:30 101 27 129/54 (79) 94 01/10/20 08:00 113 01/10/20 08:00 Mechanical Ventilator Mechanical Ventilator 01/10/20 08:00 99.3 91 20 139/56 (83) 97 01/10/20 08:00 80 01/10/20 07:30 99 21 143/42 (75) 96 01/10/20 07:20 99 23 80 01/10/20 07:00 98 22 156/50 (85) 96 01/10/20 06:00 96 25 148/61 (90) 96 01/10/20 05:00 98 23 147/50 (82) 97 01/10/20 04:00 Mechanical Ventilator Mechanical Ventilator 01/10/20 04:00 55 01/10/20 04:00 98.9 93 22 143/54 (83) 97 01/10/20 03:22 90 01/10/20 03:14 101 27 80 01/10/20 03:00 93 21 147/62 (90) 97 01/10/20 02:00 96 21 144/60 (88) 97 01/10/20 01:30 96 21 146/69 (94) 98 01/10/20 01:00 99 21 137/60 (85) 98 01/10/20 00:30 109 21 145/62 (89) 99 01/10/20 00:22 112 19 137/64 98 01/10/20 00:00 99.0 112 19 137/64 (88) 98 01/10/20 00:00 55 01/10/20 00:00 Mechanical Ventilator Mechanical Ventilator 01/09/20 23:52 123 32 178/85 94 01/09/20 23:32 114 01/09/20 23:28 99.6 01/09/20 23:24 123 32 80 01/09/20 23:00 123 33 178/85 (116) 94 01/09/20 22:00 116 31 152/67 (95) 97 01/09/20 21:00 111 29 159/68 (98) 95 01/09/20 20:00 98.9 114 31 163/69 (100) 94 01/09/20 20:00 Mechanical Ventilator Mechanical Ventilator 01/09/20 20:00 55 01/09/20 19:42 125 33 80 01/09/20 19:15 105 01/09/20 19:12 105 28 137/66 (89) 100 01/09/20 18:00 100 21 152/69 (96) 100 01/09/20 17:06 99.5 93 21 144/67 (92) 100 01/09/20 16:08 55 01/09/20 16:00 104 01/09/20 16:00 103 22 167/64 (98) 100 01/09/20 16:00 Mechanical Ventilator Mechanical Ventilator 01/09/20 15:29 91 24 100 01/09/20 15:00 98 26 136/67 (90) 100 01/09/20 14:00 92 27 144/87 (106) 100 01/09/20 13:00 94 25 153/67 (95) 100 01/09/20 12:00 55 01/09/20 12:00 99 25 154/66 (95) 100 01/09/20 12:00 106 01/09/20 12:00 Mechanical Ventilator Mechanical Ventilator 01/09/20 12:00 99.0 Intake and Output 01/09/20 01/10/20 19:00 07:00 Intake Total 2060 ml 2321.663 ml Output Total 700 ml 580 ml Balance 1360 ml 1741.663 ml Free Water 200 ml 90 ml IV Total 1100 ml 1571.663 ml Tube Feeding 640 ml 660 ml Other 120 ml Output Urine Total 700 ml 580 ml # Bowel Movements 1 Laboratory Tests 01/09/20 12:38: POC Whole Blood Glucose 165H 01/09/20 13:00: White Blood Count 16.0H, Red Blood Count 3.32L, Hemoglobin 8.4L, Hematocrit 27.3L, Mean Corpuscular Volume 82, Mean Corpuscular Hemoglobin 25.4L, Mean Corpuscular Hemoglobin Concent 31.0L, Red Cell Distribution Width 16.8H, Platelet Count 155, Mean Platelet Volume 8.0, Neutrophils (%) (Auto) , Lymphocytes (%) (Auto) , Monocytes (%) (Auto) , Eosinophils (%) (Auto) , Basophils (%) (Auto) , Differential Total Cells Counted 100, Neutrophils % (Manual) 91H, Lymphocytes % (Manual) 2L, Monocytes % (Manual) 7, Eosinophils % (Manual) 0, Basophils % (Manual) 0, Band Neutrophils 0, Platelet Estimate Adequate, Platelet Morphology Normal, Hypochromasia 2+, Anisocytosis 1+, C- Reactive Protein, Quantitative 5.7H 01/09/20 16:13: POC Whole Blood Glucose [Pending] 01/09/20 23:01: POC Whole Blood Glucose [Pending] 01/10/20 04:43: POC Whole Blood Glucose [Pending] 01/10/20 04:53: White Blood Count 19.2H, Red Blood Count 3.35L, Hemoglobin 8.6L, Hematocrit 27.9L, Mean Corpuscular Volume 83, Mean Corpuscular Hemoglobin 25.7L, Mean Corpuscular Hemoglobin Concent 30.8L, Red Cell Distribution Width 17.5H, Plat elet Count 205, Mean Platelet Volume 7.6, Neutrophils (%) (Auto) , Lymphocytes (%) (Auto) , Monocytes (%) (Auto) , Eosinophils (%) (Auto) , Basophils (%) (Auto) , Differential Total Cells Counted 100, Neutrophils % (Manual) 79H, Lymphocytes % (Manual) 7L, Monocytes % (Manual) 7, Eosinophils % (Manual) 0, Basophils % (Manual) 0, Band Neutrophils 7, Platelet Estimate Adequate, Platelet Morphology Normal, Hypochromasia 1+, Anisocytosis 1+, Sodium Level 142, Potassium Level 3.7, Chloride Level 106, Carbon Dioxide Level 21, Anion Gap 15, Blood Urea Nitrogen 78H, Creatinine 2.6H, Estimat Glomerular Filtration Rate 17.5, Glucose Level 201H, Calcium Level 8.2L, Total Bilirubin 0.5, Aspartate Amino Transf (AST/SGOT) 71H, Alanine Aminotransferase (ALT/SGPT) 311H, Alkaline Phosphatase 145H, Total Protein 6.2L, Albumin 2.3L, Globulin 3.9, Albumin/Globulin Ratio 0.6L 01/10/20 07:42: Arterial Blood pH 7.318L, Arterial Blood Partial Pressure CO2 43.9, Arterial Blood Partial Pressure O2 81.9, Arterial Blood HCO3 22.0, Arterial Blood Oxygen Saturation 95.9, Arterial Blood Base Excess -3.9L, Chester Test Positive 01/10/20 09:00: Phosphorus Level 3.7, Magnesium Level 1.8 Height (Feet): 5 Height (Inches): 2.00 Weight (Pounds): 155 General Appearance: no apparent distress EENT: other - Intubated on ventilator Cardiovascular: tachycardia Respiratory/Chest: decreased breath sounds Abdomen: soft, distended Naun Mandel MD Jan 10, 2020 12:00
--- NOTE | 2020-01-10 13:28 | NUR ---
NURSE NOTES: Dr. Yepez updated on patient WBC count increase to 19.2, also aware of gram negative bacillus in the blood cultures, no orders given to change antibiotics at this time, will continue with with Zosyn.
--- NOTE | 2020-01-10 14:13 | Diagnostic Imaging Report ---
Indication: Dyspnea Technique: One view of the chest Comparison: 01/09/2020 Findings: Less optimal inspiration currently. Stable satisfactory positions of endotracheal and orogastric tubes. Left subclavian central venous catheter again demonstrated. Extensive bilateral interstitial and airspace infiltrates versus edema again noted, unchanged, allowing for differences in degree of inspiration. Impression: Unchanged, over one day, findings as above.
[2020-01-10] MEDS: dilTIAZem HCl 30mg tab NG SCH ×2 (14:42→21:38)
--- NOTE | 2020-01-10 15:08 | NUR ---
NURSE NOTES: Cardizem drip increased to 7.5 after heart rate remained at 110-125 in a-fibb. will continue to monitor.
--- NOTE | 2020-01-10 15:40 | NUR ---
NURSE NOTES: Cardizem Drip increased to 10mg/hr at rate of 10ml/hr. heart rate remains around 105-115 in a-fibb.
--- NOTE | 2020-01-10 16:47 | NUR ---
CASE MANAGEMENT:REVIEW 01/10/20 SI: COVID PNA. INTUBATED 99.5 122 27 151/58 93% ON VENT SUPPORT W/80% FIO2 WBC+19.2 H/H-8.6/27.9 BUN+78 CR+2.6 CA+ 8.2 AST/ALT 71/311 ALB 2.3 ABG: pH 7.318 BASE EXCESS -3.9 IS: IV LINEZOLID Q12 IV ZOSYN Q12 IVF@100/HR DECADRON NG QD HEPARIN SQ Q12 : ICU STATUS DCP: FROM [facility] PLAN: MONITOR H/H ~TRENDING UP CONT RESP CARE FiO2 ADJUSTMENTS
--- NOTE | 2020-01-10 17:15 | NUR ---
NURSE NOTES: New bottle of Vital A.F. 1.2 at 55ml/hr, total bath care provided with small bowel movement, patient remains on ventialtor with setting of AC 16, TV: 600, FIO2: 80% with Peep of 5.
[2020-01-10] MEDS ORDERED: NS 275ml ONE (18:52)
--- NOTE | 2020-01-10 19:06 | NUR ---
NURSE NOTES: New Cardizem bag started at dose of 10mg/hr at rate of 10ml/hr. blood sugar resulted at 254 and 6 units was administered.
--- NOTE | 2020-01-10 19:17 | Internal Med Progress Note ---
Subjective Date of Service: Jan 10, 2020 Physician Name Greenfield,Harris Attending Physician Fernando Peguero MD Current Medications Medications (Trade) Dose Ordered Sig/Brett Route PRN Reason Start Time Stop Time Status Last Admin Dose Admin Acetaminophen (Tylenol) 650 mg Q4H PRN ORAL FEVER 01/01/20 07:00 01/31/20 06:59 01/09/20 22:58 Acetaminophen (Tylenol) 650 mg Q4H PRN RECTAL Temp >100.5 01/03/20 09:30 02/02/20 09:29 01/03/20 12:18 Albuterol/ Ipratropium (Combivent Respimat) 1 puff Q4H PRN INH Shortness of Breath 01/05/20 20:00 02/04/20 19:59 Allopurinol (allopurinoL) 300 mg DAILY NG 01/07/20 10:45 02/06/20 10:44 01/10/20 09:43 Chlorhexidine Gluconate (Silvia-Hex 2%) 1 applic DAILY@2000 TOPIC 01/07/20 20:00 04/06/20 19:59 01/09/20 20:37 Dexamethasone (Decadron) 4 mg DAILY ORAL 01/01/20 09:00 01/11/20 10:00 01/10/20 09:43 Dextrose (Dextrose 50%) 25 ml Q30M PRN IV Hypoglycemia 01/01/20 08:45 03/31/20 08:44 Dextrose (Dextrose 50%) 50 ml Q30M PRN IV Hypoglycemia 01/01/20 08:45 03/31/20 08:44 Diltiazem HCl 125 ml @ 5 mls/hr Q24H IVPB 01/10/20 00:00 01/10/20 23:59 01/10/20 18:52 Diltiazem HCl (Cardizem Tab) 30 mg EVERY 8 HOURS NG 01/10/20 14:00 02/09/20 13:59 01/10/20 14:42 Diltiazem HCl (Cardizem) 15 mg Q12H PRN IVP For High Blood Pressure 01/03/20 07:00 02/02/20 06:59 Heparin Sodium (Porcine) (Heparin 5000 units/ml) 5,000 units EVERY 12 HOURS SUBQ 01/01/20 09:00 02/15/20 08:59 01/10/20 09:43 Insulin Aspart (NovoLOG) Q6HR SUBQ 01/09/20 00:00 03/31/20 11:29 01/10/20 19:04 Linezolid 300 ml @ 300 mls/hr Q12HR IVPB 01/07/20 21:00 01/14/20 20:59 01/10/20 09:42 Lorazepam (Ativan 2mg/ml 1ml) 2 mg Q2H PRN IV For Anxiety 01/09/20 23:45 01/16/20 23:44 01/09/20 23:52 Morphine Sulfate (Morphine Sulfate) 4 mg Q4H PRN IVP For Pain 01/09/20 23:45 01/16/20 23:44 01/09/20 23:50 Ondansetron HCl (Zofran) 4 mg Q6H PRN IVP Nausea & Vomiting 01/01/20 07:00 01/31/20 06:59 Pantoprazole (Protonix) 40 mg Q12HR IV 01/05/20 21:00 02/04/20 08:59 01/10/20 09:43 Piperacillin Sod/ Tazobactam Sod 3.375 gm/Sodium Chloride 110 ml @ 27.5 mls/hr Q12H IVPB 01/07/20 13:00 01/14/20 12:59 01/10/20 12:46 Sodium Chloride 1,000 ml @ 100 mls/hr Q10H IV 01/08/20 08:15 02/07/20 08:14 01/10/20 09:44 Allergies: Coded Allergies: DOXYCYCLINE (Verified Allergy, Unknown, 04/04/19) RIFAMPIN (Verified Allergy, Unknown, 04/04/19) ROS Limited/Unobtainable: Yes Subjective 84 YO F admitted with hypoxia. Now COVID 19 pneumonia. Cover for Int pallavi-DR Peguero. ICU. Intubated and sedated Objective Last Vital Signs Date Time Temp Pulse Resp B/P (MAP) Pulse Ox O2 Delivery O2 Flow Rate FiO2 01/10/20 17:00 105 31 162/55 (90) 95 01/10/20 16:01 97.1 01/10/20 16:00 80 01/10/20 16:00 Mechanical Ventilator Mechanical Ventilator Laboratory Tests Test 01/09/20 23:01 01/10/20 04:43 01/10/20 04:53 01/10/20 07:42 POC Whole Blood Glucose Pending Pending White Blood Count 19.2 K/UL (4.8-10.8) H Red Blood Count 3.35 M/UL (4.20-5.40) L Hemoglobin 8.6 G/DL (12.0-16.0) L Hematocrit 27.9 % (37.0-47.0) L Mean Corpuscular Volume 83 FL (80-99) Mean Corpuscular Hemoglobin 25.7 PG (27.0-31.0) L Mean Corpuscular Hemoglobin Concent 30.8 G/DL (32.0-36.0) L Red Cell Distribution Width 17.5 % (11.6-14.8) H Platelet Count 205 K/UL (150-450) Mean Platelet Volume 7.6 FL (6.5-10.1) Neutrophils (%) (Auto) % (45.0-75.0) Lymphocytes (%) (Auto) % (20.0-45.0) Monocytes (%) (Auto) % (1.0-10.0) Eosinophils (%) (Auto) % (0.0-3.0) Basophils (%) (Auto) % (0.0-2.0) Differential Total Cells Counted 100 Neutrophils % (Manual) 79 % (45-75) H Lymphocytes % (Manual) 7 % (20-45) L Monocytes % (Manual) 7 % (1-10) Eosinophils % (Manual) 0 % (0-3) Basophils % (Manual) 0 % (0-2) Band Neutrophils 7 % (0-8) Platelet Estimate Adequate Platelet Morphology Normal Hypochromasia 1+ Anisocytosis 1+ Sodium Level 142 MMOL/L (136-145) Potassium Level 3.7 MMOL/L (3.5-5.1) Chloride Level 106 MMOL/L (98-107) Carbon Dioxide Level 21 MMOL/L (21-32) Anion Gap 15 mmol/L (5-15) Blood Urea Nitrogen 78 mg/dL (7-18) H Creatinine 2.6 MG/DL (0.55-1.30) H Estimat Glomerular Filtration Rate 17.5 mL/min (>60) Glucose Level 201 MG/DL (74-106) H Calcium Level 8.2 MG/DL (8.5-10.1) L Total Bilirubin 0.5 MG/DL (0.2-1.0) Aspartate Amino Transf (AST/SGOT) 71 U/L (15-37) H Alanine Aminotransferase (ALT/SGPT) 311 U/L (12-78) H Alkaline Phosphatase 145 U/L (46-116) H Total Protein 6.2 G/DL (6.4-8.2) L Albumin 2.3 G/DL (3.4-5.0) L Globulin 3.9 g/dL Albumin/Globulin Ratio 0.6 (1.0-2.7) L Arterial Blood pH 7.318 (7.350-7.450) Arterial Blood Partial Pressure CO2 43.9 mmHg (35.0-45.0) Arterial Blood Partial Pressure O2 81.9 mmHg (75.0-100.0) Arterial Blood HCO3 22.0 mmol/L (22.0-26.0) Arterial Blood Oxygen Saturation 95.9 % (95-100) Arterial Blood Base Excess -3.9 (-2-2) L Chester Test Positive Test 01/10/20 09:00 Phosphorus Level 3.7 MG/DL (2.5-4.9) Magnesium Level 1.8 MG/DL (1.8-2.4) Microbiology Date/Time Source Procedure Growth Status 01/09/20 04:58 Sputum Induced Gram Stain - Final Resulted 01/09/20 04:58 Sputum Culture - Preliminary Gram Negative Bacillus 1 Resulted Intake and Output 01/09/20 01/10/20 18:59 06:59 Intake Total 2055 ml 2421.663 ml Output Total 710 ml 580 ml Balance 1345 ml 1841.663 ml Free Water 200 ml 90 ml IV Total 1100 ml 1671.663 ml Tube Feeding 635 ml 660 ml Other 120 ml Output Urine Total 710 ml 580 ml # Bowel Movements 1 Objective PHYSICAL EXAMINATION: GENERAL: The patient is a well-developed and well-nourished female, in moderate respiratory distress. HEENT: Eyes, pupils equal and responsive to light and accommodation. Extraocular movements are intact. NECK: Supple without lymphadenopathy. CHEST: Mech vent; Decreased breath sounds at bilateral bases with crackles. Otherwise, without wheezes. CARDIOVASCULAR: Regular rhythm and rate. S1, S2 normal without murmurs, rubs, or gallops. ABDOMEN: Soft, nontender, and nondistended. Positive bowel sounds. No evidence of hepatosplenomegaly. Currently, no rebound or guarding noted. EXTREMITIES: Negative for clubbing, cyanosis, or edema. RECTAL/GENITAL: Not performed. NEUROLOGIC: Cranial nerves II through XII are grossly intact without focal deficits. Assessment/Plan Assessment/Plan ASSESSMENT: This is an 84-year-old female with: 1. COVID-19 positive. 2. Bilateral pneumonia. 3. Hypertension. 4. Atrial fibrillation. 5. Chronic obstructive pulmonary disease. 6. Coronary artery disease. 7. Congestive heart failure. 8. Diabetes type 2. 9. Hypothyroidism. 10. Hypercholesterolemia. 11. Rheumatoid arthritis. 12. Gastroesophageal reflux disease. 13. Respiratory failure 14. S/P cardiac arrest 01/05/20 TREATMENT: 1. COVID-19 positive/pneumonia. 1. Pulmonary/critical care=Dr. Ann-Marie Graves. 2. Hypertension. Continue hydralazine as above. 3. Atrial fibrillation. Continue digoxin as above. 4. Chronic obstructive pulmonary disease. As above, a Pulmonary consultation has been obtained with Dr. Ann-Marie Graves. The patient is currently on albuterol nebulized q.4h. p..r.n. 5. Coronary disease/congestive heart failure. An echocardiogram is pending. A Cardiology consultation has been obtained with Dr. Gaming. 6. Diabetes type 2. NovoLog sliding scale has been instituted. 7. Hypothyroidism. Continue Synthroid as above. 8. Hypercholesterolemia. Continue atorvastatin as above. 9. Rheumatoid arthritis. 10. Gastroesophageal reflux disease. Continue Protonix as above. 11. Continue mech vent per pulmonary 12. ABX=zosyn and zyvox 13. CODE STATUS: Full code 14. DVT prophylaxis: Heparin subcu. Harris Greenfield MD Jan 10, 2020 19:17
--- NOTE | 2020-01-10 19:30 | NUR ---
NURSE NOTES: Received pt a covid +, obtunded, orally intubated on ac mode AFib on the monitor, 80-110/min, on Cardizem drip at 10mg/hr and NS at 100ml/hr, all were infusing to left subclavian Subclavian site. with drsg , current , dry and intact, not tolerating OGT fdg at this time residuals 120ml. Fdg on hold Kelsey to gravity with yellowish urine approx 50-60 ml/hr.,Monitor I and O. Monitor lytes. Will continue to monitor.
--- NOTE | 2020-01-10 20:02 | NUR ---
NURSE HAND-OFF REPORT: Latest Vital Signs: Temperature 97.1 , Pulse 105 , B/P 150 /55 , Respiratory Rate 29 , O2 SAT 94 , Mechanical Ventilator, O2 Flow Rate 10.0 . Vital Sign Comment: EKG Rhythm: Atrial Fibrillation Rhythm change?: N Notified?: Eliezer Gaming MD Response: No New Orders Received Latest Shaw Fall Score: 70 Fall Risk: High Risk Safety Measures: Call light Within Reach, Bed Alarm Zone 1, Side Rails Side Rails x3, Bed position Low and Locked. Fall Precautions: Door Sign Report given to ALEX Hoover. cardiaem remains at 10mg/hr at rate of 10ml/hr.
[2020-01-10] MEDS: Dyna-Hex 2% Top Sol 2oz TOPIC SCH (20:06)
--- NOTE | 2020-01-10 21:00 | NUR ---
NURSE NOTES: Dr Beckman was here and evaluated pt , with order to d/c cARDIZEM TAB.
--- NOTE | 2020-01-10 21:30 | Surgery Progress Note ---
Surgery Progress Note Subjective Procedure Performed left subclavian central venous catheter insertion Additional Comments no acute events Objective Last 24 Hour Vital Signs Date Time Temp Pulse Resp B/P (MAP) Pulse Ox O2 Delivery O2 Flow Rate FiO2 01/10/20 20:00 80 01/10/20 19:39 105 29 80 01/10/20 19:30 97 31 150/55 (86) 94 01/10/20 19:00 101 30 158/56 (90) 96 01/10/20 18:30 98 29 152/52 (85) 96 01/10/20 18:00 103 29 153/51 (85) 95 01/10/20 17:30 102 31 160/53 (88) 94 01/10/20 17:00 105 31 162/55 (90) 95 01/10/20 16:30 106 33 147/58 (87) 91 01/10/20 16:01 97.1 104 34 147/64 (91) 93 01/10/20 16:00 119 01/10/20 16:00 80 01/10/20 16:00 Mechanical Ventilator Mechanical Ventilator 01/10/20 16:00 104 34 147/64 (91) 93 01/10/20 15:30 107 33 174/50 (91) 92 01/10/20 15:20 111 35 80 01/10/20 15:00 120 35 176/62 (100) 93 01/10/20 14:42 113 158/51 01/10/20 14:30 108 30 158/51 (86) 94 01/10/20 14:00 112 31 155/52 (86) 95 01/10/20 13:30 108 30 152/69 (96) 94 01/10/20 13:00 110 29 156/69 (98) 93 01/10/20 12:01 99.5 122 27 151/58 (89) 93 01/10/20 12:00 80 01/10/20 12:00 122 27 151/58 (89) 93 01/10/20 12:00 Mechanical Ventilator Mechanical Ventilator 01/10/20 12:00 100 01/10/20 11:20 125 34 80 01/10/20 11:20 125 34 95 Mechanical Ventilator 80 01/10/20 11:00 112 29 168/97 (120) 93 01/10/20 10:00 95 26 149/65 (93) 95 01/10/20 09:30 99 25 148/48 (81) 94 01/10/20 09:00 103 27 148/61 (90) 94 01/10/20 08:30 101 27 129/54 (79) 94 01/10/20 08:00 113 01/10/20 08:00 Mechanical Ventilator Mechanical Ventilator 01/10/20 08:00 99.3 91 20 139/56 (83) 97 01/10/20 08:00 80 01/10/20 07:30 99 21 143/42 (75) 96 01/10/20 07:20 99 23 80 01/10/20 07:00 98 22 156/50 (85) 96 01/10/20 06:00 96 25 148/61 (90) 96 01/10/20 05:00 98 23 147/50 (82) 97 01/10/20 04:00 Mechanical Ventilator Mechanical Ventilator 01/10/20 04:00 55 01/10/20 04:00 98.9 93 22 143/54 (83) 97 01/10/20 03:22 90 01/10/20 03:14 101 27 80 01/10/20 03:00 93 21 147/62 (90) 97 01/10/20 02:00 96 21 144/60 (88) 97 01/10/20 01:30 96 21 146/69 (94) 98 01/10/20 01:00 99 21 137/60 (85) 98 01/10/20 00:30 109 21 145/62 (89) 99 01/10/20 00:22 112 19 137/64 98 01/10/20 00:00 99.0 112 19 137/64 (88) 98 01/10/20 00:00 55 01/10/20 00:00 Mechanical Ventilator Mechanical Ventilator 01/09/20 23:52 123 32 178/85 94 01/09/20 23:32 114 01/09/20 23:28 99.6 01/09/20 23:24 123 32 80 01/09/20 23:00 123 33 178/85 (116) 94 01/09/20 22:00 116 31 152/67 (95) 97 I&O Intake and Output 01/09/20 01/10/20 19:00 07:00 Intake Total 2060 ml 2321.663 ml Output Total 700 ml 580 ml Balance 1360 ml 1741.663 ml Free Water 200 ml 90 ml IV Total 1100 ml 1571.663 ml Tube Feeding 640 ml 660 ml Other 120 ml Output Urine Total 700 ml 580 ml # Bowel Movements 1 Dressing: other Wound: other Cardiovascular: RSR Respiratory: decreased breath sounds Abdomen: non-tender, present bowel sounds Extremities: no tenderness, no cyanosis Laboratory Tests Test 01/09/20 23:01 01/10/20 04:43 01/10/20 04:53 01/10/20 07:42 POC Whole Blood Glucose Pending Pending White Blood Count 19.2 K/UL (4.8-10.8) H Red Blood Count 3.35 M/UL (4.20-5.40) L Hemoglobin 8.6 G/DL (12.0-16.0) L Hematocrit 27.9 % (37.0-47.0) L Mean Corpuscular Volume 83 FL (80-99) Mean Corpuscular Hemoglobin 25.7 PG (27.0-31.0) L Mean Corpuscular Hemoglobin Concent 30.8 G/DL (32.0-36.0) L Red Cell Distribution Width 17.5 % (11.6-14.8) H Platelet Count 205 K/UL (150-450) Mean Platelet Volume 7.6 FL (6.5-10.1) Neutrophils (%) (Auto) % (45.0-75.0) Lymphocytes (%) (Auto) % (20.0-45.0) Monocytes (%) (Auto) % (1.0-10.0) Eosinophils (%) (Auto) % (0.0-3.0) Basophils (%) (Auto) % (0.0-2.0) Differential Total Cells Counted 100 Neutrophils % (Manual) 79 % (45-75) H Lymphocytes % (Manual) 7 % (20-45) L Monocytes % (Manual) 7 % (1-10) Eosinophils % (Manual) 0 % (0-3) Basophils % (Manual) 0 % (0-2) Band Neutrophils 7 % (0-8) Platelet Estimate Adequate Platelet Morphology Normal Hypochromasia 1+ Anisocytosis 1+ Sodium Level 142 MMOL/L (136-145) Potassium Level 3.7 MMOL/L (3.5-5.1) Chloride Level 106 MMOL/L (98-107) Carbon Dioxide Level 21 MMOL/L (21-32) Anion Gap 15 mmol/L (5-15) Blood Urea Nitrogen 78 mg/dL (7-18) H Creatinine 2.6 MG/DL (0.55-1.30) H Estimat Glomerular Filtration Rate 17.5 mL/min (>60) Glucose Level 201 MG/DL (74-106) H Calcium Level 8.2 MG/DL (8.5-10.1) L Total Bilirubin 0.5 MG/DL (0.2-1.0) Aspartate Amino Transf (AST/SGOT) 71 U/L (15-37) H Alanine Aminotransferase (ALT/SGPT) 311 U/L (12-78) H Alkaline Phosphatase 145 U/L (46-116) H Total Protein 6.2 G/DL (6.4-8.2) L Albumin 2.3 G/DL (3.4-5.0) L Globulin 3.9 g/dL Albumin/Globulin Ratio 0.6 (1.0-2.7) L Arterial Blood pH 7.318 (7.350-7.450) Arterial Blood Partial Pressure CO2 43.9 mmHg (35.0-45.0) Arterial Blood Partial Pressure O2 81.9 mmHg (75.0-100.0) Arterial Blood HCO3 22.0 mmol/L (22.0-26.0) Arterial Blood Oxygen Saturation 95.9 % (95-100) Arterial Blood Base Excess -3.9 (-2-2) L Chester Test Positive Test 01/10/20 09:00 Phosphorus Level 3.7 MG/DL (2.5-4.9) Magnesium Level 1.8 MG/DL (1.8-2.4) Plan Problems: (1) Acute on chronic systolic (congestive) heart failure (2) CO2 retention (3) BORIS (acute kidney injury) (4) Shock liver Assessment & Plan: Hypotensive septic acute elevation in LFTs AST ALT thousands alk phos elevated. Likely shock from hypotension and acute episode. Labs trending down. IV fluid hydration. No acute intervention. Hold on imaging. Line reviewed. No bleeding noted. All 3 ports functional. Chest x-ray reviewed. Drop in hemoglobin unlikely related to line. Will monitor. Trend labs. Transfuse PRN. And are improvement in position of previously malpositioned endotracheal tube, tip now projecting 1-2 cm above the garrett. Interim placement of an orogastric tube, tip of which projects beyond the edge of the image, presumably well within the stomach. Interim placement of a left subclavian central venous catheter, tip of which projects at the level of the innominate venous confluence. No pneumothorax. Bilateral infiltrates are again demonstrated, unchanged. Impression: Improved and now satisfactory position of endotracheal tube Interim left subclavian central venous catheter placement, no radiographically evident complication Interim orogastric intubation, apparently satisfactory Unchanged bilateral infiltrates (5) Atrial fibrillation (6) Diabetes mellitus (7) CHF (congestive heart failure) (8) Hypothyroidism (9) Chronic respiratory failure Assessment & Plan: Intubated intensive care unit weaning vent. ET tube in place. Chest x-ray reviewed. (10) History of hypertension (11) 2019 novel coronavirus detected Assessment & Plan: COVID positive as per ID and pulmonology appreciate input and care. Continue vent support wean as tolerated. Satinder Olivera Jan 10, 2020 21:30
[2020-01-10] MEDS: LORazepam Inj 2mg/ml 1ml IV PRN (21:38)
--- NOTE | 2020-01-10 21:38 | NUR ---
NURSE NOTES: Ativan 2mg ivp was given due to prts anxiety.
--- NOTE | 2020-01-10 22:36 | Cardiology Progress Note ---
Assessment/Plan Problem List: (1) Acute on chronic systolic (congestive) heart failure (2) Acute respiratory failure due to COVID-19 (3) Atrial fibrillation (4) History of hypertension (5) 2019 novel coronavirus detected Status: not improved, unchanged Status Narrative s/p resuscitated cardiopulmonary arrest -appears due to hypoxia, as per notes pt found with bipap mask off - uncertain duration. COVID 19 pneumonia - xr w/ bilat infiltrates Nl LV systolic function by echo prior to cardiopulm arrest AF- persistent, w rapid ventricular rates last pm, now on iv diltiazem HTN Assessment/Plan Continue vent support. On iv abx, steroids per ID. Continue iv diltiazem today for rate control in AF and hold ngt diltiazem. Subjective ROS Limited/Unobtainable: Yes Subjective Cardiology for Dr. Gaming Intubated, not responsive Objective exam deferred as pt in COVID isolation Last 24 Hour Vital Signs Date Time Temp Pulse Resp B/P (MAP) Pulse Ox O2 Delivery O2 Flow Rate FiO2 01/10/20 21:38 102 161/66 01/10/20 21:38 102 31 161/66 91 01/10/20 20:00 80 01/10/20 19:39 105 29 80 01/10/20 19:30 97 31 150/55 (86) 94 01/10/20 19:00 101 30 158/56 (90) 96 01/10/20 18:30 98 29 152/52 (85) 96 01/10/20 18:00 103 29 153/51 (85) 95 01/10/20 17:30 102 31 160/53 (88) 94 01/10/20 17:00 105 31 162/55 (90) 95 01/10/20 16:30 106 33 147/58 (87) 91 01/10/20 16:01 97.1 104 34 147/64 (91) 93 01/10/20 16:00 119 01/10/20 16:00 80 01/10/20 16:00 Mechanical Ventilator Mechanical Ventilator 01/10/20 16:00 104 34 147/64 (91) 93 01/10/20 15:30 107 33 174/50 (91) 92 01/10/20 15:20 111 35 80 01/10/20 15:00 120 35 176/62 (100) 93 01/10/20 14:42 113 158/51 01/10/20 14:30 108 30 158/51 (86) 94 01/10/20 14:00 112 31 155/52 (86) 95 01/10/20 13:30 108 30 152/69 (96) 94 01/10/20 13:00 110 29 156/69 (98) 93 01/10/20 12:01 99.5 122 27 151/58 (89) 93 01/10/20 12:00 80 01/10/20 12:00 122 27 151/58 (89) 93 01/10/20 12:00 Mechanical Ventilator Mechanical Ventilator 01/10/20 12:00 100 01/10/20 11:20 125 34 80 01/10/20 11:20 125 34 95 Mechanical Ventilator 80 01/10/20 11:00 112 29 168/97 (120) 93 01/10/20 10:00 95 26 149/65 (93) 95 01/10/20 09:30 99 25 148/48 (81) 94 01/10/20 09:00 103 27 148/61 (90) 94 01/10/20 08:30 101 27 129/54 (79) 94 01/10/20 08:00 113 01/10/20 08:00 Mechanical Ventilator Mechanical Ventilator 01/10/20 08:00 99.3 91 20 139/56 (83) 97 01/10/20 08:00 80 01/10/20 07:30 99 21 143/42 (75) 96 01/10/20 07:20 99 23 80 01/10/20 07:00 98 22 156/50 (85) 96 01/10/20 06:00 96 25 148/61 (90) 96 01/10/20 05:00 98 23 147/50 (82) 97 01/10/20 04:00 Mechanical Ventilator Mechanical Ventilator 01/10/20 04:00 55 01/10/20 04:00 98.9 93 22 143/54 (83) 97 01/10/20 03:22 90 01/10/20 03:14 101 27 80 01/10/20 03:00 93 21 147/62 (90) 97 01/10/20 02:00 96 21 144/60 (88) 97 01/10/20 01:30 96 21 146/69 (94) 98 01/10/20 01:00 99 21 137/60 (85) 98 01/10/20 00:30 109 21 145/62 (89) 99 01/10/20 00:22 112 19 137/64 98 01/10/20 00:00 99.0 112 19 137/64 (88) 98 01/10/20 00:00 55 01/10/20 00:00 Mechanical Ventilator Mechanical Ventilator 01/09/20 23:52 123 32 178/85 94 01/09/20 23:32 114 01/09/20 23:28 99.6 01/09/20 23:24 123 32 80 01/09/20 23:00 123 33 178/85 (116) 94 General Appearance: on vent, other - not responsive Intake and Output 01/09/20 01/10/20 18:59 06:59 Intake Total 2055 ml 2421.663 ml Output Total 710 ml 580 ml Balance 1345 ml 1841.663 ml Free Water 200 ml 90 ml IV Total 1100 ml 1671.663 ml Tube Feeding 635 ml 660 ml Other 120 ml Output Urine Total 710 ml 580 ml # Bowel Movements 1 Laboratory Tests Test 01/09/20 23:01 01/10/20 04:43 01/10/20 04:53 01/10/20 07:42 POC Whole Blood Glucose Pending Pending White Blood Count 19.2 K/UL (4.8-10.8) H Red Blood Count 3.35 M/UL (4.20-5.40) L Hemoglobin 8.6 G/DL (12.0-16.0) L Hematocrit 27.9 % (37.0-47.0) L Mean Corpuscular Volume 83 FL (80-99) Mean Corpuscular Hemoglobin 25.7 PG (27.0-31.0) L Mean Corpuscular Hemoglobin Concent 30.8 G/DL (32.0-36.0) L Red Cell Distribution Width 17.5 % (11.6-14.8) H Platelet Count 205 K/UL (150-450) Mean Platelet Volume 7.6 FL (6.5-10.1) Neutrophils (%) (Auto) % (45.0-75.0) Lymphocytes (%) (Auto) % (20.0-45.0) Monocytes (%) (Auto) % (1.0-10.0) Eosinophils (%) (Auto) % (0.0-3.0) Basophils (%) (Auto) % (0.0-2.0) Differential Total Cells Counted 100 Neutrophils % (Manual) 79 % (45-75) H Lymphocytes % (Manual) 7 % (20-45) L Monocytes % (Manual) 7 % (1-10) Eosinophils % (Manual) 0 % (0-3) Basophils % (Manual) 0 % (0-2) Band Neutrophils 7 % (0-8) Platelet Estimate Adequate Platelet Morphology Normal Hypochromasia 1+ Anisocytosis 1+ Sodium Level 142 MMOL/L (136-145) Potassium Level 3.7 MMOL/L (3.5-5.1) Chloride Level 106 MMOL/L (98-107) Carbon Dioxide Level 21 MMOL/L (21-32) Anion Gap 15 mmol/L (5-15) Blood Urea Nitrogen 78 mg/dL (7-18) H Creatinine 2.6 MG/DL (0.55-1.30) H Estimat Glomerular Filtration Rate 17.5 mL/min (>60) Glucose Level 201 MG/DL (74-106) H Calcium Level 8.2 MG/DL (8.5-10.1) L Total Bilirubin 0.5 MG/DL (0.2-1.0) Aspartate Amino Transf (AST/SGOT) 71 U/L (15-37) H Alanine Aminotransferase (ALT/SGPT) 311 U/L (12-78) H Alkaline Phosphatase 145 U/L (46-116) H Total Protein 6.2 G/DL (6.4-8.2) L Albumin 2.3 G/DL (3.4-5.0) L Globulin 3.9 g/dL Albumin/Globulin Ratio 0.6 (1.0-2.7) L Arterial Blood pH 7.318 (7.350-7.450) Arterial Blood Partial Pressure CO2 43.9 mmHg (35.0-45.0) Arterial Blood Partial Pressure O2 81.9 mmHg (75.0-100.0) Arterial Blood HCO3 22.0 mmol/L (22.0-26.0) Arterial Blood Oxygen Saturation 95.9 % (95-100) Arterial Blood Base Excess -3.9 (-2-2) L Chester Test Positive Test 01/10/20 09:00 Phosphorus Level 3.7 MG/DL (2.5-4.9) Magnesium Level 1.8 MG/DL (1.8-2.4) Microbiology Date/Time Source Procedure Growth Status 01/09/20 04:58 Sputum Induced Gram Stain - Final Resulted 01/09/20 04:58 Sputum Culture - Preliminary Gram Negative Bacillus 1 Resulted Swetha Maki MD Jan 10, 2020 22:36
--- NOTE | 2020-01-10 23:00 | NUR ---
NURSE NOTES: Suctioned tn tk beige secretions moderate in amt.Oral care done.
[2020-01-11] VITALS (42 sets, daily range): BP systolic 110–142; BP diastolic 41–62
[2020-01-11] MEDS: dilTIAZem Premix 125mg/125ml 125 ML IVPB SCH ×3 (00:23→20:02)
[2020-01-11] MEDS: NovoLOG Insulin Flexpen SUBQ SCH ×4 (00:29→18:50)
--- NOTE | 2020-01-11 01:00 | NUR ---
NURSE NOTES: Remained on Afib , controlled rate. Cardizem drip at 10 mg/hr.
[2020-01-11] MEDS: Piperacillin/Tazobactam 3.375 GM in NS 110 ML IVPB SCH ×3 (01:16→23:55)
--- NOTE | 2020-01-11 03:00 | NUR ---
NURSE NOTES: Complete bed bath with bed changed done.
--- NOTE | 2020-01-11 05:00 | NUR ---
NURSE NOTES: Tolerated OGT fdg HOB kept elevated.
[2020-01-11 05:38] LABS: HEMATOCRIT 25.4 % (37.0-47.0); HEMOGLOBIN 7.7 G/DL (12.0-16.0); MEAN CORPUSCULAR VOLUME 84 FL (80-99); PLATELET COUNT 202 K/UL (150-450); RED BLOOD COUNT 3.04 M/UL (4.20-5.40); RED CELL DISTRIBUTION WIDTH 17.4 % (11.6-14.8); WHITE BLOOD COUNT 19.3 K/UL (4.8-10.8)
[2020-01-11 06:12] LABS: ALBUMIN 1.9 G/DL (3.4-5.0); ALBUMIN/GLOBULIN RATIO 0.5 (1.0-2.7); BILIRUBIN,TOTAL 0.5 MG/DL (0.2-1.0); CREATININE 2.5 MG/DL (0.55-1.30); PHOSPHORUS 3.5 MG/DL (2.5-4.9)
--- NOTE | 2020-01-11 06:41 | NUR ---
NURSE NOTES: Neuro unchanged. VSS, Cardizem drip still at 10mg/hr.
--- NOTE | 2020-01-11 07:00 | NUR ---
NURSE NOTES: Turned off fdg at 0700 (22hrs fdg per Dr Graves)
--- NOTE | 2020-01-11 07:52 | NUR ---
NURSE NOTES: New bag of cardizem hung, previous bag has 0mls left. dose remains at 10mg/hr at rate of 10ml/hr, first gram of magnesium sulfate started.
--- NOTE | 2020-01-11 08:15 | NUR ---
NURSE NOTES: Dr. Mandel updated on patient urine output and aware of magnesium sulfate 2 grams ordered. no additional orders given at this time.
[2020-01-11] MEDS: Heparin 5000 units/ml inj SUBQ SCH ×2 (09:00→20:02)
[2020-01-11] MEDS: Pantoprazole Inj IV SCH ×2 (09:12→20:01)
--- NOTE | 2020-01-11 09:45 | NUR ---
NURSE NOTES: 2 Grams of magnesium sulfate completed, patient remains on Cardizem drip at 10mg/hr at rate of 10ml/hr, heart rate remains in a-fibb at 84-90,
--- NOTE | 2020-01-11 10:30 | NUR ---
NURSE NOTES: Spoke to Emergency Contact who is on the Advanced Directive for Patient. Stated that she spoke to DIAL BUFFER. Pt did not want extreme measures if in the event she was unable to speak for herself however a POLST was signed in August 2019 making herself a FULL CODE while residing at [facility]. Patient is s/p CODE BLUE and now absent a gag. Plan is to speak to Dr. Graves about a possible EEG regarding neuro status of patient. Code last approx 13 min. Family is aware that Code Status is Full Code now and if status is futile, will change upon the recommendations of the MD. Will update Dr. Graves.
--- NOTE | 2020-01-11 11:48 | Infectious Diseases Prog Note ---
Assessment/Plan Assessment: Asystole arrest Sepsis COVID19 pneumonia Acute hypoxic resp failure sp NRB> Bipap 100% Fio2> VDRF 100% -01/01 CXR: Vascular congestion/developing failure and bilateral patchy infiltrates, slightly worse since prior exam. Small bilateral pleural effusions.Prominent mediastinum likely due to tortuous/ectatic thoracic aorta. -12/31 CXR: Centrally predominant interstitial and airspace opacities, pulmonary edema most likely. Cardiomegaly. Fever; SP No leukocytosis Dm2 COPD HTN former smoker CAD CHF RA GERD hypothyroidism Afib [place] resident ([facility]) Plan: - Cont Zosyn #5 and Linazolid #5 - F/u repeat blood, Urine and Sp Cx -Decadron #8/10 - 01/09/20 SP Remdesivir #5 per [facility] criteria- patient cannot provide consent; Benefits outweigh risks. - 01/07/20 Ceftriaxone #7 - 12/31 SP Cefepime x1, Flagyl x1 -f/u cx -Monitor CBC/CMP, temperatures -ETT/ICU care D/w RN Thank you for consulting [facility]. Will continue to follow along with you. Subjective Allergies: Coded Allergies: DOXYCYCLINE (Verified Allergy, Unknown, 04/04/19) RIFAMPIN (Verified Allergy, Unknown, 04/04/19) Afebrile On Vent 80% O2 WBCs 19 x 2 days CXR - PNA stable as of 01/09/20 Objective Last 24 Hour Vital Signs Date Time Temp Pulse Resp B/P (MAP) Pulse Ox O2 Delivery O2 Flow Rate FiO2 01/11/20 11:00 85 26 128/48 (74) 94 01/11/20 10:30 89 27 142/53 (82) 90 01/11/20 10:00 84 29 130/54 (79) 94 01/11/20 09:30 82 26 123/44 (70) 94 01/11/20 09:00 81 26 131/45 (73) 95 01/11/20 08:30 81 24 115/49 (71) 96 01/11/20 08:00 83 01/11/20 08:00 82 27 136/43 (74) 95 01/11/20 08:00 Mechanical Ventilator Mechanical Ventilator 01/11/20 07:59 80 01/11/20 07:30 100.2 81 25 128/49 (75) 98 01/11/20 07:15 84 26 80 01/11/20 07:00 81 25 122/47 (72) 95 01/11/20 06:00 82 22 119/44 (69) 97 01/11/20 05:30 81 23 120/43 (68) 97 01/11/20 05:00 84 25 124/50 (74) 97 01/11/20 04:30 84 24 129/45 (73) 95 01/11/20 04:00 80 01/11/20 04:00 Mechanical Ventilator Mechanical Ventilator 01/11/20 04:00 84 01/11/20 04:00 99.0 85 22 125/50 (75) 96 01/11/20 03:37 92 22 80 01/11/20 03:30 85 21 129/50 (76) 96 01/11/20 03:00 83 23 125/48 (73) 96 01/11/20 02:30 83 25 122/47 (72) 97 01/11/20 02:00 86 21 134/53 (80) 97 01/11/20 01:30 86 22 123/43 (69) 96 01/11/20 01:00 91 21 130/51 (77) 96 01/11/20 00:30 82 21 132/45 (74) 96 01/11/20 00:00 98.0 85 19 122/51 (74) 95 01/11/20 00:00 89 01/11/20 00:00 Mechanical Ventilator Mechanical Ventilator 01/11/20 00:00 80 01/10/20 23:30 84 20 125/53 (77) 95 01/10/20 23:00 84 23 128/47 (74) 95 01/10/20 22:52 87 28 80 01/10/20 22:30 87 20 121/49 (73) 96 01/10/20 22:06 87 20 121/49 100 01/10/20 22:00 93 20 128/47 (74) 96 01/10/20 21:38 102 161/66 01/10/20 21:38 102 31 161/66 91 01/10/20 21:30 106 30 161/66 (97) 92 01/10/20 21:00 104 33 166/54 (91) 90 01/10/20 20:30 103 32 150/52 (84) 91 01/10/20 20:00 95 01/10/20 20:00 100.0 97 32 151/53 (85) 94 01/10/20 20:00 Mechanical Ventilator Mechanical Ventilator 01/10/20 20:00 80 01/10/20 19:39 105 29 80 01/10/20 19:30 97 31 150/55 (86) 94 01/10/20 19:00 101 30 158/56 (90) 96 01/10/20 18:30 98 29 152/52 (85) 96 01/10/20 18:00 103 29 153/51 (85) 95 01/10/20 17:30 102 31 160/53 (88) 94 01/10/20 17:00 105 31 162/55 (90) 95 01/10/20 16:30 106 33 147/58 (87) 91 01/10/20 16:01 97.1 104 34 147/64 (91) 93 01/10/20 16:00 119 01/10/20 16:00 80 01/10/20 16:00 Mechanical Ventilator Mechanical Ventilator 01/10/20 16:00 104 34 147/64 (91) 93 01/10/20 15:30 107 33 174/50 (91) 92 01/10/20 15:20 111 35 80 01/10/20 15:00 120 35 176/62 (100) 93 01/10/20 14:42 113 158/51 01/10/20 14:30 108 30 158/51 (86) 94 01/10/20 14:00 112 31 155/52 (86) 95 01/10/20 13:30 108 30 152/69 (96) 94 01/10/20 13:00 110 29 156/69 (98) 93 01/10/20 12:01 99.5 122 27 151/58 (89) 93 01/10/20 12:00 80 01/10/20 12:00 122 27 151/58 (89) 93 01/10/20 12:00 Mechanical Ventilator Mechanical Ventilator 01/10/20 12:00 100 Height (Feet): 5 Height (Inches): 2.00 Weight (Pounds): 155 GENERAL: On Vent 80% HEENT: NCAT, MMM LUNGS: Equal rise and fall of chest B/L no accessory muscle use ABDOMEN: Soft, nondistended EXTREMITIES: No cyanosis, clubbing, or edema. Microbiology Date/Time Source Procedure Growth Status 01/09/20 04:58 Sputum Induced Gram Stain - Final Resulted 01/09/20 04:58 Sputum Culture - Preliminary Klebsiella Pneumoniae Usual Respiratory Naya Resulted Laboratory Tests Test 01/10/20 12:44 01/10/20 18:42 01/11/20 00:14 01/11/20 04:50 POC Whole Blood Glucose 229 MG/DL (74-106) H 254 MG/DL (74-106) H 223 MG/DL (74-106) H White Blood Count 19.3 K/UL (4.8-10.8) H Red Blood Count 3.04 M/UL (4.20-5.40) L Hemoglobin 7.7 G/DL (12.0-16.0) L Hematocrit 25.4 % (37.0-47.0) L Mean Corpuscular Volume 84 FL (80-99) Mean Corpuscular Hemoglobin 25.5 PG (27.0-31.0) L Mean Corpuscular Hemoglobin Concent 30.5 G/DL (32.0-36.0) L Red Cell Distribution Width 17.4 % (11.6-14.8) H Platelet Count 202 K/UL (150-450) Mean Platelet Volume 7.0 FL (6.5-10.1) Neutrophils (%) (Auto) % (45.0-75.0) Lymphocytes (%) (Auto) % (20.0-45.0) Monocytes (%) (Auto) % (1.0-10.0) Eosinophils (%) (Auto) % (0.0-3.0) Basophils (%) (Auto) % (0.0-2.0) Differential Total Cells Counted 100 Neutrophils % (Manual) 85 % (45-75) H Lymphocytes % (Manual) 9 % (20-45) L Monocytes % (Manual) 6 % (1-10) Eosinophils % (Manual) 0 % (0-3) Basophils % (Manual) 0 % (0-2) Band Neutrophils 0 % (0-8) Platelet Estimate Adequate Platelet Morphology Normal Hypochromasia 2+ Anisocytosis 1+ Sodium Level 141 MMOL/L (136-145) Potassium Level 4.0 MMOL/L (3.5-5.1) Chloride Level 107 MMOL/L (98-107) Carbon Dioxide Level 20 MMOL/L (21-32) L Anion Gap 14 mmol/L (5-15) Blood Urea Nitrogen 85 mg/dL (7-18) H Creatinine 2.5 MG/DL (0.55-1.30) H Estimat Glomerular Filtration Rate 18.3 mL/min (>60) Glucose Level 194 MG/DL (74-106) H Calcium Level 8.0 MG/DL (8.5-10.1) L Phosphorus Level 3.5 MG/DL (2.5-4.9) Magnesium Level 1.6 MG/DL (1.8-2.4) L Total Bilirubin 0.5 MG/DL (0.2-1.0) Aspartate Amino Transf (AST/SGOT) 55 U/L (15-37) H Alanine Aminotransferase (ALT/SGPT) 206 U/L (12-78) H Alkaline Phosphatase 107 U/L (46-116) Total Protein 5.4 G/DL (6.4-8.2) L Albumin 1.9 G/DL (3.4-5.0) L Globulin 3.5 g/dL Albumin/Globulin Ratio 0.5 (1.0-2.7) L Test 01/11/20 05:57 01/11/20 07:19 POC Whole Blood Glucose 184 MG/DL (74-106) H Arterial Blood pH 7.308 (7.350-7.450) Arterial Blood Partial Pressure CO2 37.3 mmHg (35.0-45.0) Arterial Blood Partial Pressure O2 75.7 mmHg (75.0-100.0) Arterial Blood HCO3 18.3 mmol/L (22.0-26.0) L Arterial Blood Oxygen Saturation 94.8 % (95-100) L Arterial Blood Base Excess -7.4 (-2-2) L Chester Test Positive Current Medications Medications (Trade) Dose Ordered Sig/Brett Route PRN Reason Start Time Stop Time Status Last Admin Dose Admin Acetaminophen (Tylenol) 650 mg Q4H PRN ORAL FEVER 01/01/20 07:00 01/31/20 06:59 01/09/20 22:58 Acetaminophen (Tylenol) 650 mg Q4H PRN RECTAL Temp >100.5 01/03/20 09:30 02/02/20 09:29 01/03/20 12:18 Albuterol/ Ipratropium (Combivent Respimat) 1 puff Q4H PRN INH Shortness of Breath 01/05/20 20:00 02/04/20 19:59 Allopurinol (allopurinoL) 300 mg DAILY NG 01/07/20 10:45 02/06/20 10:44 01/11/20 09:12 Chlorhexidine Gluconate (Silvia-Hex 2%) 1 applic DAILY@2000 TOPIC 01/07/20 20:00 04/06/20 19:59 01/10/20 20:06 Dextrose (Dextrose 50%) 25 ml Q30M PRN IV Hypoglycemia 01/01/20 08:45 03/31/20 08:44 Dextrose (Dextrose 50%) 50 ml Q30M PRN IV Hypoglycemia 01/01/20 08:45 03/31/20 08:44 Diltiazem HCl 125 ml @ 0 mls/hr Q24H IVPB 01/11/20 00:00 01/12/20 00:00 01/11/20 00:23 Diltiazem HCl (Cardizem) 15 mg Q12H PRN IVP For High Blood Pressure 01/03/20 07:00 02/02/20 06:59 Heparin Sodium (Porcine) (Heparin 5000 units/ml) 5,000 units EVERY 12 HOURS SUBQ 01/01/20 09:00 02/15/20 08:59 01/10/20 20:43 Insulin Aspart (NovoLOG) Q6HR SUBQ 01/09/20 00:00 03/31/20 11:29 01/11/20 06:04 Linezolid 300 ml @ 300 mls/hr Q12HR IVPB 01/07/20 21:00 01/14/20 20:59 01/11/20 09:13 Lorazepam (Ativan 2mg/ml 1ml) 2 mg Q2H PRN IV For Anxiety 01/09/20 23:45 01/16/20 23:44 01/10/20 21:38 Morphine Sulfate (Morphine Sulfate) 4 mg Q4H PRN IVP For Pain 01/09/20 23:45 01/16/20 23:44 01/09/20 23:50 Ondansetron HCl (Zofran) 4 mg Q6H PRN IVP Nausea & Vomiting 01/01/20 07:00 01/31/20 06:59 Pantoprazole (Protonix) 40 mg Q12HR IV 01/05/20 21:00 02/04/20 08:59 01/11/20 09:12 Piperacillin Sod/ Tazobactam Sod 3.375 gm/Sodium Chloride 110 ml @ 27.5 mls/hr Q12H IVPB 01/07/20 13:00 01/14/20 12:59 01/11/20 01:16 Sodium Chloride 1,000 ml @ 100 mls/hr Q10H IV 01/08/20 08:15 02/07/20 08:14 01/11/20 06:55 Mehrdad Yepez MD Jan 11, 2020 11:47
--- NOTE | 2020-01-11 11:50 | NUR ---
NURSE NOTES: Dr. Sidhu updated on patient sputum culture results, no changes made to antibiotics and continue Zosyn.
--- NOTE | 2020-01-11 12:00 | NUR ---
NURSE NOTES: Dr. Graves ordered to have Synthroid, 200mcg, ng, daily at 0630 and Reglan, 10mg, IVP, Q6hrs. 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 Graves assessed the patient neuro status with the caloric reflex test and noted that patient has nystagmus, concluded that patient does note need a neurology consult.
--- NOTE | 2020-01-11 12:09 | Pulmonolgy Critical Care Note ---
Critical Care - Asmt/Plan Problems: (1) Acute respiratory failure due to COVID-19 (2) Acute on chronic systolic (congestive) heart failure (3) Atrial fibrillation (4) Diabetes mellitus (5) CHF (congestive heart failure) (6) Hypothyroidism (7) Chronic respiratory failure (8) History of hypertension Respiratory: monitor respiratory rate, adjust FIO2, CXR Renal: F/U I&O, check electrolytes Infectious Disease: check cultures, continue antibiotics Gastrointestinal: continue feedings/current rate Endocrine: monitor blood sugar, continue sliding scale insulin Hematologic: monitor H/H, transfuse if hgb<8.5 Neurologic: PRN Ativan, keep patient comfortable Prophylaxis: Heparin Time Spent (Minutes): 40 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, 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, 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 Discussed with: nurses, consultants, pillowcase cleanercommercial lines manager - Objective Last 24 Hour Vital Signs Date Time Temp Pulse Resp B/P (MAP) Pulse Ox O2 Delivery O2 Flow Rate FiO2 01/11/20 11:00 85 26 128/48 (74) 94 01/11/20 10:30 89 27 142/53 (82) 90 01/11/20 10:00 84 29 130/54 (79) 94 01/11/20 09:30 82 26 123/44 (70) 94 01/11/20 09:00 81 26 131/45 (73) 95 01/11/20 08:30 81 24 115/49 (71) 96 01/11/20 08:00 83 01/11/20 08:00 82 27 136/43 (74) 95 01/11/20 08:00 Mechanical Ventilator Mechanical Ventilator 01/11/20 07:59 80 01/11/20 07:30 100.2 81 25 128/49 (75) 98 01/11/20 07:15 84 26 80 01/11/20 07:00 81 25 122/47 (72) 95 01/11/20 06:00 82 22 119/44 (69) 97 01/11/20 05:30 81 23 120/43 (68) 97 01/11/20 05:00 84 25 124/50 (74) 97 01/11/20 04:30 84 24 129/45 (73) 95 01/11/20 04:00 80 01/11/20 04:00 Mechanical Ventilator Mechanical Ventilator 01/11/20 04:00 84 01/11/20 04:00 99.0 85 22 125/50 (75) 96 01/11/20 03:37 92 22 80 01/11/20 03:30 85 21 129/50 (76) 96 01/11/20 03:00 83 23 125/48 (73) 96 01/11/20 02:30 83 25 122/47 (72) 97 01/11/20 02:00 86 21 134/53 (80) 97 01/11/20 01:30 86 22 123/43 (69) 96 01/11/20 01:00 91 21 130/51 (77) 96 01/11/20 00:30 82 21 132/45 (74) 96 01/11/20 00:00 98.0 85 19 122/51 (74) 95 01/11/20 00:00 89 01/11/20 00:00 Mechanical Ventilator Mechanical Ventilator 01/11/20 00:00 80 01/10/20 23:30 84 20 125/53 (77) 95 01/10/20 23:00 84 23 128/47 (74) 95 01/10/20 22:52 87 28 80 01/10/20 22:30 87 20 121/49 (73) 96 01/10/20 22:06 87 20 121/49 100 01/10/20 22:00 93 20 128/47 (74) 96 01/10/20 21:38 102 161/66 01/10/20 21:38 102 31 161/66 91 01/10/20 21:30 106 30 161/66 (97) 92 01/10/20 21:00 104 33 166/54 (91) 90 01/10/20 20:30 103 32 150/52 (84) 91 01/10/20 20:00 95 01/10/20 20:00 100.0 97 32 151/53 (85) 94 01/10/20 20:00 Mechanical Ventilator Mechanical Ventilator 01/10/20 20:00 80 01/10/20 19:39 105 29 80 01/10/20 19:30 97 31 150/55 (86) 94 01/10/20 19:00 101 30 158/56 (90) 96 01/10/20 18:30 98 29 152/52 (85) 96 01/10/20 18:00 103 29 153/51 (85) 95 01/10/20 17:30 102 31 160/53 (88) 94 01/10/20 17:00 105 31 162/55 (90) 95 01/10/20 16:30 106 33 147/58 (87) 91 01/10/20 16:01 97.1 104 34 147/64 (91) 93 01/10/20 16:00 119 01/10/20 16:00 80 01/10/20 16:00 Mechanical Ventilator Mechanical Ventilator 01/10/20 16:00 104 34 147/64 (91) 93 01/10/20 15:30 107 33 174/50 (91) 92 01/10/20 15:20 111 35 80 01/10/20 15:00 120 35 176/62 (100) 93 01/10/20 14:42 113 158/51 01/10/20 14:30 108 30 158/51 (86) 94 01/10/20 14:00 112 31 155/52 (86) 95 01/10/20 13:30 108 30 152/69 (96) 94 01/10/20 13:00 110 29 156/69 (98) 93 Status: sedated Condition: critical HEENT: atraumatic Neck: full ROM Lungs: clear Heart: HR/BP stable Abdomen: active bowel sounds Extremities: no C/C/E Decubiti: stage Micro: Microbiology Date/Time Source Procedure Growth Status 01/09/20 04:58 Sputum Induced Gram Stain - Final Resulted 01/09/20 04:58 Sputum Culture - Preliminary Klebsiella Pneumoniae Usual Respiratory Naya Resulted Accucheck: 184 Critical Care - Subjective ROS Limited/Unobtainable: Yes Condition: critical EKG Rhythm: Sinus Rhythm FI02: 80 Vent Support Breath Rate: 16 Vent Support Mode: AC Vent Tidal Volume: 600 Sputum Amount: Small PEEP: 5.0 PIP: 36 Tube Feeding Amount: 0 I&O: Intake and Output 01/10/20 01/11/20 19:00 07:00 Intake Total 2559.56350 ml 2237.0 ml Output Total 800 ml 670 ml Balance 1759.00205 ml 1567.0 ml Free Water 160 ml 60 ml IV Total 1699.98224 ml 1792.0 ml Tube Feeding 660 ml 385 ml Other 40 ml Output Urine Total 800 ml 670 ml # Bowel Movements 1 CXR: no change ET-Tube: 7.5 ET Position: 23 Labs: Laboratory Tests Test 01/10/20 12:44 01/10/20 18:42 01/11/20 00:14 01/11/20 04:50 POC Whole Blood Glucose 229 MG/DL (74-106) H 254 MG/DL (74-106) H 223 MG/DL (74-106) H White Blood Count 19.3 K/UL (4.8-10.8) H Red Blood Count 3.04 M/UL (4.20-5.40) L Hemoglobin 7.7 G/DL (12.0-16.0) L Hematocrit 25.4 % (37.0-47.0) L Mean Corpuscular Volume 84 FL (80-99) Mean Corpuscular Hemoglobin 25.5 PG (27.0-31.0) L Mean Corpuscular Hemoglobin Concent 30.5 G/DL (32.0-36.0) L Red Cell Distribution Width 17.4 % (11.6-14.8) H Platelet Count 202 K/UL (150-450) Mean Platelet Volume 7.0 FL (6.5-10.1) Neutrophils (%) (Auto) % (45.0-75.0) Lymphocytes (%) (Auto) % (20.0-45.0) Monocytes (%) (Auto) % (1.0-10.0) Eosinophils (%) (Auto) % (0.0-3.0) Basophils (%) (Auto) % (0.0-2.0) Differential Total Cells Counted 100 Neutrophils % (Manual) 85 % (45-75) H Lymphocytes % (Manual) 9 % (20-45) L Monocytes % (Manual) 6 % (1-10) Eosinophils % (Manual) 0 % (0-3) Basophils % (Manual) 0 % (0-2) Band Neutrophils 0 % (0-8) Platelet Estimate Adequate Platelet Morphology Normal Hypochromasia 2+ Anisocytosis 1+ Sodium Level 141 MMOL/L (136-145) Potassium Level 4.0 MMOL/L (3.5-5.1) Chloride Level 107 MMOL/L (98-107) Carbon Dioxide Level 20 MMOL/L (21-32) L Anion Gap 14 mmol/L (5-15) Blood Urea Nitrogen 85 mg/dL (7-18) H Creatinine 2.5 MG/DL (0.55-1.30) H Estimat Glomerular Filtration Rate 18.3 mL/min (>60) Glucose Level 194 MG/DL (74-106) H Calcium Level 8.0 MG/DL (8.5-10.1) L Phosphorus Level 3.5 MG/DL (2.5-4.9) Magnesium Level 1.6 MG/DL (1.8-2.4) L Total Bilirubin 0.5 MG/DL (0.2-1.0) Aspartate Amino Transf (AST/SGOT) 55 U/L (15-37) H Alanine Aminotransferase (ALT/SGPT) 206 U/L (12-78) H Alkaline Phosphatase 107 U/L (46-116) Total Protein 5.4 G/DL (6.4-8.2) L Albumin 1.9 G/DL (3.4-5.0) L Globulin 3.5 g/dL Albumin/Globulin Ratio 0.5 (1.0-2.7) L Test 01/11/20 05:57 01/11/20 07:19 POC Whole Blood Glucose 184 MG/DL (74-106) H Arterial Blood pH 7.308 (7.350-7.450) Arterial Blood Partial Pressure CO2 37.3 mmHg (35.0-45.0) Arterial Blood Partial Pressure O2 75.7 mmHg (75.0-100.0) Arterial Blood HCO3 18.3 mmol/L (22.0-26.0) L Arterial Blood Oxygen Saturation 94.8 % (95-100) L Arterial Blood Base Excess -7.4 (-2-2) L [place] Test Positive Ann-Marie Graves MD Jan 11, 2020 12:09
--- NOTE | 2020-01-11 12:30 | NUR ---
NURSE NOTES: Dr. Graves performed brain exam and patient is not brain . Patient is breathing over the vent and responsive to his exam. Spoke to him about the family's wishes and the patient's conversation with the family re: if patient is unable to recover and now could not live a the same life as before, family may wish to make her DNR/DNI. Per Dr. Graves, he would like to wait a couple of days to see how patient does before speaking to the family regarding code status change. Will update PM charge.
--- NOTE | 2020-01-11 13:12 | Surgery Progress Note ---
Surgery Progress Note Subjective Procedure Performed left subclavian central venous catheter insertion Additional Comments leukocytosis anemia line okay exam unchanged Objective Last 24 Hour Vital Signs Date Time Temp Pulse Resp B/P (MAP) Pulse Ox O2 Delivery O2 Flow Rate FiO2 01/11/20 11:00 85 26 128/48 (74) 94 01/11/20 10:30 89 27 142/53 (82) 90 01/11/20 10:00 84 29 130/54 (79) 94 01/11/20 09:30 82 26 123/44 (70) 94 01/11/20 09:00 81 26 131/45 (73) 95 01/11/20 08:30 81 24 115/49 (71) 96 01/11/20 08:00 83 01/11/20 08:00 82 27 136/43 (74) 95 01/11/20 08:00 Mechanical Ventilator Mechanical Ventilator 01/11/20 07:59 80 01/11/20 07:30 100.2 81 25 128/49 (75) 98 01/11/20 07:15 84 26 80 01/11/20 07:00 81 25 122/47 (72) 95 01/11/20 06:00 82 22 119/44 (69) 97 01/11/20 05:30 81 23 120/43 (68) 97 01/11/20 05:00 84 25 124/50 (74) 97 01/11/20 04:30 84 24 129/45 (73) 95 01/11/20 04:00 80 01/11/20 04:00 Mechanical Ventilator Mechanical Ventilator 01/11/20 04:00 84 01/11/20 04:00 99.0 85 22 125/50 (75) 96 01/11/20 03:37 92 22 80 01/11/20 03:30 85 21 129/50 (76) 96 01/11/20 03:00 83 23 125/48 (73) 96 01/11/20 02:30 83 25 122/47 (72) 97 01/11/20 02:00 86 21 134/53 (80) 97 01/11/20 01:30 86 22 123/43 (69) 96 01/11/20 01:00 91 21 130/51 (77) 96 01/11/20 00:30 82 21 132/45 (74) 96 01/11/20 00:00 98.0 85 19 122/51 (74) 95 01/11/20 00:00 89 01/11/20 00:00 Mechanical Ventilator Mechanical Ventilator 01/11/20 00:00 80 01/10/20 23:30 84 20 125/53 (77) 95 01/10/20 23:00 84 23 128/47 (74) 95 01/10/20 22:52 87 28 80 01/10/20 22:30 87 20 121/49 (73) 96 01/10/20 22:06 87 20 121/49 100 01/10/20 22:00 93 20 128/47 (74) 96 01/10/20 21:38 102 161/66 01/10/20 21:38 102 31 161/66 91 01/10/20 21:30 106 30 161/66 (97) 92 01/10/20 21:00 104 33 166/54 (91) 90 01/10/20 20:30 103 32 150/52 (84) 91 01/10/20 20:00 95 01/10/20 20:00 100.0 97 32 151/53 (85) 94 01/10/20 20:00 Mechanical Ventilator Mechanical Ventilator 01/10/20 20:00 80 01/10/20 19:39 105 29 80 01/10/20 19:30 97 31 150/55 (86) 94 01/10/20 19:00 101 30 158/56 (90) 96 01/10/20 18:30 98 29 152/52 (85) 96 01/10/20 18:00 103 29 153/51 (85) 95 01/10/20 17:30 102 31 160/53 (88) 94 01/10/20 17:00 105 31 162/55 (90) 95 01/10/20 16:30 106 33 147/58 (87) 91 01/10/20 16:01 97.1 104 34 147/64 (91) 93 01/10/20 16:00 119 01/10/20 16:00 80 01/10/20 16:00 Mechanical Ventilator Mechanical Ventilator 01/10/20 16:00 104 34 147/64 (91) 93 01/10/20 15:30 107 33 174/50 (91) 92 01/10/20 15:20 111 35 80 01/10/20 15:00 120 35 176/62 (100) 93 01/10/20 14:42 113 158/51 01/10/20 14:30 108 30 158/51 (86) 94 01/10/20 14:00 112 31 155/52 (86) 95 01/10/20 13:30 108 30 152/69 (96) 94 I&O Intake and Output 01/10/20 01/11/20 18:59 06:59 Intake Total 2519.57904 ml 2332.0 ml Output Total 755 ml 745 ml Balance 1764.28057 ml 1587.0 ml Free Water 120 ml 100 ml IV Total 1699.19742 ml 1792.0 ml Tube Feeding 660 ml 440 ml Other 40 ml Output Urine Total 755 ml 745 ml # Bowel Movements 1 Dressing: other Wound: other Cardiovascular: RSR Respiratory: decreased breath sounds Abdomen: soft, non-tender, present bowel sounds Extremities: no tenderness, no cyanosis Laboratory Tests Test 01/10/20 18:42 01/11/20 00:14 01/11/20 04:50 01/11/20 05:57 POC Whole Blood Glucose 254 MG/DL (74-106) H 223 MG/DL (74-106) H 184 MG/DL (74-106) H White Blood Count 19.3 K/UL (4.8-10.8) H Red Blood Count 3.04 M/UL (4.20-5.40) L Hemoglobin 7.7 G/DL (12.0-16.0) L Hematocrit 25.4 % (37.0-47.0) L Mean Corpuscular Volume 84 FL (80-99) Mean Corpuscular Hemoglobin 25.5 PG (27.0-31.0) L Mean Corpuscular Hemoglobin Concent 30.5 G/DL (32.0-36.0) L Red Cell Distribution Width 17.4 % (11.6-14.8) H Platelet Count 202 K/UL (150-450) Mean Platelet Volume 7.0 FL (6.5-10.1) Neutrophils (%) (Auto) % (45.0-75.0) Lymphocytes (%) (Auto) % (20.0-45.0) Monocytes (%) (Auto) % (1.0-10.0) Eosinophils (%) (Auto) % (0.0-3.0) Basophils (%) (Auto) % (0.0-2.0) Differential Total Cells Counted 100 Neutrophils % (Manual) 85 % (45-75) H Lymphocytes % (Manual) 9 % (20-45) L Monocytes % (Manual) 6 % (1-10) Eosinophils % (Manual) 0 % (0-3) Basophils % (Manual) 0 % (0-2) Band Neutrophils 0 % (0-8) Platelet Estimate Adequate Platelet Morphology Normal Hypochromasia 2+ Anisocytosis 1+ Sodium Level 141 MMOL/L (136-145) Potassium Level 4.0 MMOL/L (3.5-5.1) Chloride Level 107 MMOL/L (98-107) Carbon Dioxide Level 20 MMOL/L (21-32) L Anion Gap 14 mmol/L (5-15) Blood Urea Nitrogen 85 mg/dL (7-18) H Creatinine 2.5 MG/DL (0.55-1.30) H Estimat Glomerular Filtration Rate 18.3 mL/min (>60) Glucose Level 194 MG/DL (74-106) H Calcium Level 8.0 MG/DL (8.5-10.1) L Phosphorus Level 3.5 MG/DL (2.5-4.9) Magnesium Level 1.6 MG/DL (1.8-2.4) L Total Bilirubin 0.5 MG/DL (0.2-1.0) Aspartate Amino Transf (AST/SGOT) 55 U/L (15-37) H Alanine Aminotransferase (ALT/SGPT) 206 U/L (12-78) H Alkaline Phosphatase 107 U/L (46-116) Total Protein 5.4 G/DL (6.4-8.2) L Albumin 1.9 G/DL (3.4-5.0) L Globulin 3.5 g/dL Albumin/Globulin Ratio 0.5 (1.0-2.7) L Test 01/11/20 07:19 Arterial Blood pH 7.308 (7.350-7.450) Arterial Blood Partial Pressure CO2 37.3 mmHg (35.0-45.0) Arterial Blood Partial Pressure O2 75.7 mmHg (75.0-100.0) Arterial Blood HCO3 18.3 mmol/L (22.0-26.0) L Arterial Blood Oxygen Saturation 94.8 % (95-100) L Arterial Blood Base Excess -7.4 (-2-2) L [place] Test Positive Plan Problems: (1) Acute on chronic systolic (congestive) heart failure (2) CO2 retention (3) BORIS (acute kidney injury) (4) Shock liver Assessment & Plan: Hypotensive septic acute elevation in LFTs AST ALT thousands alk phos elevated. Likely shock from hypotension and acute episode. Labs trending down. IV fluid hydration. No acute intervention. Hold on imaging. Line reviewed. No bleeding noted. All 3 ports functional. Chest x-ray reviewed. Drop in hemoglobin unlikely related to line. Will monitor. Trend labs. Transfuse PRN. And are improvement in position of previously malpositioned endotracheal tube, tip now projecting 1-2 cm above the garrett. Interim placement of an orogastric tube, tip of which projects beyond the edge of the image, presumably well within the stomach. Interim placement of a left subclavian central venous catheter, tip of which projects at the level of the innominate venous confluence. No pneumothorax. Bilateral infiltrates are again demonstrated, unchanged. Impression: Improved and now satisfactory position of endotracheal tube Interim left subclavian central venous catheter placement, no radiographically evident complication Interim orogastric intubation, apparently satisfactory Unchanged bilateral infiltrates (5) Atrial fibrillation (6) Diabetes mellitus (7) CHF (congestive heart failure) (8) Hypothyroidism (9) Chronic respiratory failure Assessment & Plan: Intubated intensive care unit weaning vent. ET tube in place. Chest x-ray reviewed. (10) History of hypertension (11) 2019 novel coronavirus detected Assessment & Plan: COVID positive as per ID and pulmonology appreciate input and care. Continue vent support wean as tolerated. Satinder Olivera Jan 11, 2020 13:12
[2020-01-11] MEDS: Metoclopramide 10mg/2ml Inj IVP PRN ×2 (13:21→23:55)
--- NOTE | 2020-01-11 13:48 | Diagnostic Imaging Report ---
Indication: Reason For Exam: [id number] Technique: Single AP view of the chest. Comparison: Chest radiograph dated 01/02/2020 Findings: The cardiomediastinal silhouette is unchanged in appearance. Redemonstration of bilateral diffuse severe airspace disease. Unchanged right pleural effusion. No pneumothorax. Unchanged endotracheal tube and enteric tube. Left approach central venous catheter is unchanged in position. IMPRESSION: No significant change from prior examination.
--- NOTE | 2020-01-11 14:20 | NUR ---
NURSE NOTES: Dr. Gaming updated that patient remains on Cardizem drip at 10mcg/hr at rate of 10ml/hr. heart rate ranges from 78-88 in controlled a-fibb. no orders given at this time to start Cardizem by NG-tube. ordered to continue Cardizem drip.
--- NOTE | 2020-01-11 14:25 | Nephrology Progress Note ---
Assessment/Plan Problem List: (1) BORIS (acute kidney injury) (2) 2019 novel coronavirus detected (3) Hypothyroidism (4) Diabetes mellitus (5) Atrial fibrillation (6) Shock liver Assessment 85-year-old female admitted 5 days ago, at the time serum creatinine was 0.9 and today the serum creatinine is 1.4, most likely BORIS Hypernatremia secondary to free water deficit Prerenal azotemia COVID-19 virus detected Acute on chronic systolic congestive heart failure Atrial fibrillation Diabetes mellitus Hypothyroidism Hypertension Acute on chronic respiratory failure Plan January 10: Labs reviewed. Serum creatinine 2.5. Liver enzymes are lowering. Remains full code. Remains intubated. Electrolyte abnormalities addressed. Continue per consultants. January 09: Lab reviewed. Serum creatinine lower at 2.6. Liver enzymes are lowering. Patient remains full code and remains intubated. Continue current management. Continue to follow renal parameters. Continue per consultants. Start Cardizem 30 mg every 8 hours via NG tube for elevated blood pressure January 08: Lab reviewed. Serum creatinine 2.8. LFTs improving. Remains intubated. Remains full code. Continue per consultants. Continue to monitor renal parameters. Avoid nephrotoxic's as possible. January 07: Labs reviewed. Serum creatinine robby to 2.9. Liver enzymes are improving. Patient off pressors. Patient full code. Patient intubated on ventilator. Continue to monitor renal parameters. IV fluid changed to normal saline. Continue per consultants. Anemia work-up initiated, iron panel B12 and folate level ordered. January 06: Labs reviewed. Serum creatinine up to 2.6. Medications reviewed. Continue to follow renal parameters and electrolytes. Continue to monitor liver enzymes. Allopurinol for high uric acid given. Discussed with RN. January 05: Blood pressure stable off pressors. Continue IV fluids. Monitor renal parameters. Monitor liver function tests. Hold oral Synthroid at this time. Continue treatment for sepsis and COVID-19 infection IV fluids Keep the blood pressure over 100 systolic Monitor renal parameters and electrolytes Monitor liver function tests Avoid nephrotoxic's as possible Urine studies Digoxin level Thyroid function tests Per orders Subjective ROS Limited/Unobtainable: Yes Objective Objective Last 24 Hour Vital Signs Date Time Temp Pulse Resp B/P (MAP) Pulse Ox O2 Delivery O2 Flow Rate FiO2 01/11/20 14:00 80 23 115/48 (70) 97 01/11/20 13:30 84 26 130/53 (78) 97 01/11/20 13:00 81 26 123/49 (73) 96 01/11/20 12:30 80 24 124/48 (73) 95 01/11/20 12:00 Mechanical Ventilator Mechanical Ventilator 01/11/20 12:00 99.6 84 26 131/52 (78) 94 01/11/20 12:00 88 01/11/20 12:00 80 01/11/20 11:30 83 25 123/45 (71) 95 01/11/20 11:00 85 26 128/48 (74) 94 01/11/20 10:45 85 28 80 01/11/20 10:30 89 27 142/53 (82) 90 01/11/20 10:00 84 29 130/54 (79) 94 01/11/20 09:30 82 26 123/44 (70) 94 01/11/20 09:00 81 26 131/45 (73) 95 01/11/20 08:30 81 24 115/49 (71) 96 01/11/20 08:00 83 01/11/20 08:00 82 27 136/43 (74) 95 01/11/20 08:00 Mechanical Ventilator Mechanical Ventilator 01/11/20 07:59 80 01/11/20 07:30 100.2 81 25 128/49 (75) 98 01/11/20 07:15 84 26 80 01/11/20 07:00 81 25 122/47 (72) 95 01/11/20 06:00 82 22 119/44 (69) 97 01/11/20 05:30 81 23 120/43 (68) 97 01/11/20 05:00 84 25 124/50 (74) 97 01/11/20 04:30 84 24 129/45 (73) 95 01/11/20 04:00 80 01/11/20 04:00 Mechanical Ventilator Mechanical Ventilator 01/11/20 04:00 84 01/11/20 04:00 99.0 85 22 125/50 (75) 96 01/11/20 03:37 92 22 80 01/11/20 03:30 85 21 129/50 (76) 96 01/11/20 03:00 83 23 125/48 (73) 96 01/11/20 02:30 83 25 122/47 (72) 97 01/11/20 02:00 86 21 134/53 (80) 97 01/11/20 01:30 86 22 123/43 (69) 96 01/11/20 01:00 91 21 130/51 (77) 96 01/11/20 00:30 82 21 132/45 (74) 96 01/11/20 00:00 98.0 85 19 122/51 (74) 95 01/11/20 00:00 89 01/11/20 00:00 Mechanical Ventilator Mechanical Ventilator 01/11/20 00:00 80 01/10/20 23:30 84 20 125/53 (77) 95 01/10/20 23:00 84 23 128/47 (74) 95 01/10/20 22:52 87 28 80 01/10/20 22:30 87 20 121/49 (73) 96 01/10/20 22:06 87 20 121/49 100 01/10/20 22:00 93 20 128/47 (74) 96 01/10/20 21:38 102 161/66 01/10/20 21:38 102 31 161/66 91 01/10/20 21:30 106 30 161/66 (97) 92 01/10/20 21:00 104 33 166/54 (91) 90 01/10/20 20:30 103 32 150/52 (84) 91 01/10/20 20:00 95 01/10/20 20:00 100.0 97 32 151/53 (85) 94 01/10/20 20:00 Mechanical Ventilator Mechanical Ventilator 01/10/20 20:00 80 01/10/20 19:39 105 29 80 01/10/20 19:30 97 31 150/55 (86) 94 01/10/20 19:00 101 30 158/56 (90) 96 01/10/20 18:30 98 29 152/52 (85) 96 01/10/20 18:00 103 29 153/51 (85) 95 01/10/20 17:30 102 31 160/53 (88) 94 01/10/20 17:00 105 31 162/55 (90) 95 01/10/20 16:30 106 33 147/58 (87) 91 01/10/20 16:01 97.1 104 34 147/64 (91) 93 01/10/20 16:00 119 01/10/20 16:00 80 01/10/20 16:00 Mechanical Ventilator Mechanical Ventilator 01/10/20 16:00 104 34 147/64 (91) 93 01/10/20 15:30 107 33 174/50 (91) 92 01/10/20 15:20 111 35 80 01/10/20 15:00 120 35 176/62 (100) 93 01/10/20 14:42 113 158/51 01/10/20 14:30 108 30 158/51 (86) 94 Intake and Output 01/10/20 01/11/20 19:00 07:00 Intake Total 2559.95445 ml 2255.3333 ml Output Total 800 ml 670 ml Balance 1759.94793 ml 1585.3333 ml Free Water 160 ml 60 ml IV Total 1699.24121 ml 1810.3333 ml Tube Feeding 660 ml 385 ml Other 40 ml Output Urine Total 800 ml 670 ml # Bowel Movements 1 Laboratory Tests 01/10/20 18:42: POC Whole Blood Glucose 254H 01/11/20 00:14: POC Whole Blood Glucose 223H 01/11/20 04:50: White Blood Count 19.3H, Red Blood Count 3.04L, Hemoglobin 7.7L, Hematocrit 25.4L, Mean Corpuscular Volume 84, Mean Corpuscular Hemoglobin 25.5L, Mean Corpuscular Hemoglobin Concent 30.5L, Red Cell Distribution Width 17.4H, Platelet Count 202, Mean Platelet Volume 7.0, Neutrophils (%) (Auto) , Lymphocytes (%) (Auto) , Monocytes (%) (Auto) , Eosinophils (%) (Auto) , Basophils (%) (Auto) , Differential Total Cells Counted 100, Neutrophils % (Manual) 85H, Lymphocytes % (Manual) 9L, Monocytes % (Manual) 6, Eosinophils % (Manual) 0, Basophils % (Manual) 0, Band Neutrophils 0, Platelet Estimate Adequate, Platelet Morphology Normal, Hypochromasia 2+, Anisocytosis 1+, Sodium Level 141, Potassium Level 4.0, Chloride Level 107, Carbon Dioxide Level 20L, Anion Gap 14, Blood Urea Nitrogen 85H, Creatinine 2.5H, Estimat Glomerular Filtration Rate 18.3, Glucose Level 194H, Calcium Level 8.0L, Phosphorus Level 3.5, Magnesium Level 1.6L, Total Bilirubin 0.5, Aspartate Amino Transf (AST/SGOT) 55H, Alanine Aminotransferase (ALT/SGPT) 206H, Alkaline Phosphatase 107, Total Protein 5.4L, Albumin 1.9L, Globulin 3.5, Albumin/Globulin Ratio 0.5L 01/11/20 05:57: POC Whole Blood Glucose 184H 01/11/20 07:19: Arterial Blood pH 7.308L, Arterial Blood Partial Pressure CO2 37.3, Arterial Blood Partial Pressure O2 75.7, Arterial Blood HCO3 18.3L, Arterial Blood Oxygen Saturation 94.8L, Arterial Blood Base Excess -7.4L, [place] Test Positive Height (Feet): 5 Height (Inches): 2.00 Weight (Pounds): 155 General Appearance: no apparent distress EENT: other - Intubated on ventilator Cardiovascular: normal rate - Rate in 80s Respiratory/Chest: decreased breath sounds Abdomen: soft Naun Mandel MD Jan 11, 2020 14:25
--- NOTE | 2020-01-11 16:04 | NUR ---
NURSE NOTES: oral care provided along with a sponge bath, patient remains on Cardizem drip at 10mg/hr and 10 ml/hr.
--- NOTE | 2020-01-11 17:39 | Internal Med Progress Note ---
Subjective Date of Service: Jan 11, 2020 Physician Name Harris Greenfield Attending Physician Fernando Peguero MD Current Medications Medications (Trade) Dose Ordered Sig/Brett Route PRN Reason Start Time Stop Time Status Last Admin Dose Admin Acetaminophen (Tylenol) 650 mg Q4H PRN ORAL FEVER 01/01/20 07:00 01/31/20 06:59 01/09/20 22:58 Acetaminophen (Tylenol) 650 mg Q4H PRN RECTAL Temp >100.5 01/03/20 09:30 02/02/20 09:29 01/03/20 12:18 Albuterol/ Ipratropium (Combivent Respimat) 1 puff Q4H PRN INH Shortness of Breath 01/05/20 20:00 02/04/20 19:59 Allopurinol (allopurinoL) 300 mg DAILY NG 01/07/20 10:45 02/06/20 10:44 01/11/20 09:12 Chlorhexidine Gluconate (Silvia-Hex 2%) 1 applic DAILY@2000 TOPIC 01/07/20 20:00 04/06/20 19:59 01/10/20 20:06 Dextrose (Dextrose 50%) 25 ml Q30M PRN IV Hypoglycemia 01/01/20 08:45 03/31/20 08:44 Dextrose (Dextrose 50%) 50 ml Q30M PRN IV Hypoglycemia 01/01/20 08:45 03/31/20 08:44 Diltiazem HCl 125 ml @ 0 mls/hr Q24H IVPB 01/11/20 00:00 01/12/20 00:00 01/11/20 07:52 Diltiazem HCl (Cardizem) 15 mg Q12H PRN IVP For High Blood Pressure 01/03/20 07:00 02/02/20 06:59 Heparin Sodium (Porcine) (Heparin 5000 units/ml) 5,000 units EVERY 12 HOURS SUBQ 01/01/20 09:00 02/15/20 08:59 01/10/20 20:43 Insulin Aspart (NovoLOG) Q6HR SUBQ 01/09/20 00:00 03/31/20 11:29 01/11/20 12:41 Levothyroxine Sodium (Synthroid) 200 mcg DAILY@0630 ORAL 01/12/20 06:30 02/11/20 06:29 Linezolid 300 ml @ 300 mls/hr Q12HR IVPB 01/07/20 21:00 01/14/20 20:59 01/11/20 09:13 Lorazepam (Ativan 2mg/ml 1ml) 2 mg Q2H PRN IV For Anxiety 01/09/20 23:45 01/16/20 23:44 01/10/20 21:38 Metoclopramide HCl (Reglan) 10 mg Q6H PRN IVP Nausea & Vomiting 01/11/20 12:15 02/10/20 12:14 01/11/20 13:21 Morphine Sulfate (Morphine Sulfate) 4 mg Q4H PRN IVP For Pain 01/09/20 23:45 01/16/20 23:44 01/09/20 23:50 Ondansetron HCl (Zofran) 4 mg Q6H PRN IVP Nausea & Vomiting 01/01/20 07:00 01/31/20 06:59 Pantoprazole (Protonix) 40 mg Q12HR IV 01/05/20 21:00 02/04/20 08:59 01/11/20 09:12 Piperacillin Sod/ Tazobactam Sod 3.375 gm/Sodium Chloride 110 ml @ 27.5 mls/hr Q12H IVPB 01/07/20 13:00 01/14/20 12:59 01/11/20 13:21 Sodium Chloride 1,000 ml @ 100 mls/hr Q10H IV 01/08/20 08:15 02/07/20 08:14 01/11/20 12:36 Allergies: Coded Allergies: DOXYCYCLINE (Verified Allergy, Unknown, 04/04/19) RIFAMPIN (Verified Allergy, Unknown, 04/04/19) ROS Limited/Unobtainable: Yes Subjective 84 YO F admitted with hypoxia. Now COVID 19 pneumonia. Cover for Int pallavi-DR Peguero. ICU. Intubated and sedated Objective Last Vital Signs Date Time Temp Pulse Resp B/P (MAP) Pulse Ox O2 Delivery O2 Flow Rate FiO2 01/11/20 16:30 82 23 120/52 (74) 95 01/11/20 16:00 80 01/11/20 16:00 99.9 01/11/20 16:00 Mechanical Ventilator Mechanical Ventilator Laboratory Tests Test 01/10/20 18:42 01/11/20 00:14 01/11/20 04:50 01/11/20 05:57 POC Whole Blood Glucose 254 MG/DL (74-106) H 223 MG/DL (74-106) H 184 MG/DL (74-106) H White Blood Count 19.3 K/UL (4.8-10.8) H Red Blood Count 3.04 M/UL (4.20-5.40) L Hemoglobin 7.7 G/DL (12.0-16.0) L Hematocrit 25.4 % (37.0-47.0) L Mean Corpuscular Volume 84 FL (80-99) Mean Corpuscular Hemoglobin 25.5 PG (27.0-31.0) L Mean Corpuscular Hemoglobin Concent 30.5 G/DL (32.0-36.0) L Red Cell Distribution Width 17.4 % (11.6-14.8) H Platelet Count 202 K/UL (150-450) Mean Platelet Volume 7.0 FL (6.5-10.1) Neutrophils (%) (Auto) % (45.0-75.0) Lymphocytes (%) (Auto) % (20.0-45.0) Monocytes (%) (Auto) % (1.0-10.0) Eosinophils (%) (Auto) % (0.0-3.0) Basophils (%) (Auto) % (0.0-2.0) Differential Total Cells Counted 100 Neutrophils % (Manual) 85 % (45-75) H Lymphocytes % (Manual) 9 % (20-45) L Monocytes % (Manual) 6 % (1-10) Eosinophils % (Manual) 0 % (0-3) Basophils % (Manual) 0 % (0-2) Band Neutrophils 0 % (0-8) Platelet Estimate Adequate Platelet Morphology Normal Hypochromasia 2+ Anisocytosis 1+ Sodium Level 141 MMOL/L (136-145) Potassium Level 4.0 MMOL/L (3.5-5.1) Chloride Level 107 MMOL/L (98-107) Carbon Dioxide Level 20 MMOL/L (21-32) L Anion Gap 14 mmol/L (5-15) Blood Urea Nitrogen 85 mg/dL (7-18) H Creatinine 2.5 MG/DL (0.55-1.30) H Estimat Glomerular Filtration Rate 18.3 mL/min (>60) Glucose Level 194 MG/DL (74-106) H Calcium Level 8.0 MG/DL (8.5-10.1) L Phosphorus Level 3.5 MG/DL (2.5-4.9) Magnesium Level 1.6 MG/DL (1.8-2.4) L Total Bilirubin 0.5 MG/DL (0.2-1.0) Aspartate Amino Transf (AST/SGOT) 55 U/L (15-37) H Alanine Aminotransferase (ALT/SGPT) 206 U/L (12-78) H Alkaline Phosphatase 107 U/L (46-116) Total Protein 5.4 G/DL (6.4-8.2) L Albumin 1.9 G/DL (3.4-5.0) L Globulin 3.5 g/dL Albumin/Globulin Ratio 0.5 (1.0-2.7) L Test 01/11/20 07:19 Arterial Blood pH 7.308 (7.350-7.450) Arterial Blood Partial Pressure CO2 37.3 mmHg (35.0-45.0) Arterial Blood Partial Pressure O2 75.7 mmHg (75.0-100.0) Arterial Blood HCO3 18.3 mmol/L (22.0-26.0) L Arterial Blood Oxygen Saturation 94.8 % (95-100) L Arterial Blood Base Excess -7.4 (-2-2) L Chester Test Positive Microbiology Date/Time Source Procedure Growth Status 01/09/20 04:58 Sputum Induced Gram Stain - Final Resulted 01/09/20 04:58 Sputum Culture - Preliminary Klebsiella Pneumoniae Usual Respiratory Naya Resulted Intake and Output 01/10/20 01/11/20 18:59 06:59 Intake Total 2519.82512 ml 2332.0 ml Output Total 755 ml 745 ml Balance 1764.95624 ml 1587.0 ml Free Water 120 ml 100 ml IV Total 1699.80230 ml 1792.0 ml Tube Feeding 660 ml 440 ml Other 40 ml Output Urine Total 755 ml 745 ml # Bowel Movements 1 Objective PHYSICAL EXAMINATION: GENERAL: The patient is a well-developed and well-nourished female, in moderate respiratory distress. HEENT: Eyes, pupils equal and responsive to light and accommodation. Extraocular movements are intact. NECK: Supple without lymphadenopathy. CHEST: Mech vent; Decreased breath sounds at bilateral bases with crackles. Otherwise, without wheezes. CARDIOVASCULAR: Regular rhythm and rate. S1, S2 normal without murmurs, rubs, or gallops. ABDOMEN: Soft, nontender, and nondistended. Positive bowel sounds. No evidence of hepatosplenomegaly. Currently, no rebound or guarding noted. EXTREMITIES: Negative for clubbing, cyanosis, or edema. RECTAL/GENITAL: Not performed. NEUROLOGIC: Cranial nerves II through XII are grossly intact without focal deficits. Assessment/Plan Assessment/Plan ASSESSMENT: This is an 84-year-old female with: 1. COVID-19 positive. 2. Bilateral pneumonia. 3. Hypertension. 4. Atrial fibrillation. 5. Chronic obstructive pulmonary disease. 6. Coronary artery disease. 7. Congestive heart failure. 8. Diabetes type 2. 9. Hypothyroidism. 10. Hypercholesterolemia. 11. Rheumatoid arthritis. 12. Gastroesophageal reflux disease. 13. Respiratory failure 14. S/P cardiac arrest 01/05/20 TREATMENT: 1. COVID-19 positive/pneumonia. Continue decadron; S/P remdesivir 1. Pulmonary/critical care=Dr. Ann-Marie Graves. 2. Hypertension. Continue hydralazine as above. 3. Atrial fibrillation. Continue digoxin as above. 4. Chronic obstructive pulmonary disease. As above, a Pulmonary consultation has been obtained with Dr. Ann-Marie Graves. The patient is currently on albuterol nebulized q.4h. p..r.n. 5. Coronary disease/congestive heart failure. An echocardiogram is pending. A Cardiology consultation has been obtained with Dr. Gaming. 6. Diabetes type 2. NovoLog sliding scale has been instituted. 7. Hypothyroidism. Continue Synthroid as above. 8. Hypercholesterolemia. Continue atorvastatin as above. 9. Rheumatoid arthritis. 10. Gastroesophageal reflux disease. Continue Protonix as above. 11. Continue mech vent per pulmonary 12. ABX=zosyn and linezolid 13. CODE STATUS: Full code 14. DVT prophylaxis: Heparin subcu. Harris Greenfield MD Jan 11, 2020 17:39
--- NOTE | 2020-01-11 19:29 | NUR ---
NURSE HAND-OFF REPORT: Latest Vital Signs: Temperature 99.9 , Pulse 85 , B/P 134 /57 , Respiratory Rate 27 , O2 SAT 97 , Mechanical Ventilator, O2 Flow Rate 10.0 . Vital Sign Comment: EKG Rhythm: Atrial Fibrillation Rhythm change?: N Notified?: Eliezer Gaming MD Response: No New Orders Received Latest Shaw Fall Score: 70 Fall Risk: High Risk Safety Measures: Call light Within Reach, Bed Alarm Zone 1, Side Rails Side Rails x3, Bed position Low and Locked. Fall Precautions: Door Sign Report given to ALEX Moya. remains on cardizem drip at 10mg/hr at rate of 10ml/hr.
--- NOTE | 2020-01-11 19:30 | NUR ---
NURSE NOTES: Patient received from ALEX Cronin. patient obtunded, hypoactive gag reflex, does not withdraw to pain. patient with 7.5 ETT at 23cm lip on ventilator AC 16 TV 600 FiO2 80% PEEP 5. BP 134/44 HR 81 Afib on monitor, temp 99.7F axillary. Left Subclavian TLC running Cardizem @ 10ml/hr, NS @100ml/hr asymptomatic. OGT running Vital @55ml/hr 120ml residual noted, feeding held. Kelsey draining to gravity. patient with sacral Optifoam, bilateral upper extremity weeping edema and ecchymosis, bilateral lower extremity edema. patient on P200 mattress, repositioned, oral care provided.
[2020-01-11] MEDS: Dyna-Hex 2% Top Sol 2oz TOPIC SCH (20:01)
--- NOTE | 2020-01-11 22:00 | NUR ---
NURSE NOTES: patient obtunded with 7.5 ETT at 23cm lip on ventilator AC 16 TV 600 FiO2 80% PEEP 5. BP 131/49 HR 81 Afib on monitor. Left Subclavian TLC running Cardizem @ 10ml/hr, NS @100ml/hr asymptomatic. OGT clamped and patent due to high residual noted. Kelsey draining to scant yellow urine. patient repositioned, oral care provided.
[2020-01-12] VITALS (26 sets, daily range): BP systolic 125–157; BP diastolic 45–84
--- NOTE | 2020-01-12 | NUR ---
NURSE NOTES: patient obtunded with 7.5 ETT at 23cm lip on ventilator AC 16 TV 600 FiO2 80% PEEP 5. BP 125/48 HR 79 Afib on monitor temp 99.6F axillary. Left Subclavian TLC running Cardizem @ 10ml/hr, NS @100ml/hr asymptomatic. OGT running Vital @20ml/hr. Kelsey draining scant yellow urine with sediment. patient given CHG bath, repositioned, oral care provided.
[2020-01-12] MEDS: NovoLOG Insulin Flexpen SUBQ SCH ×4 (00:11→18:22)
[2020-01-12] MEDS: dilTIAZem Premix 125mg/125ml 125 ML IVPB SCH ×3 (01:01→18:15)
--- NOTE | 2020-01-12 04:00 | NUR ---
NURSE NOTES: patient obtunded with 7.5 ETT at 23cm lip on ventilator AC 16 TV 600 FiO2 80% PEEP 5. BP 137/51 HR 78 Afib on monitor temp 99.1F axillary. Left Subclavian TLC running Cardizem @ 10ml/hr, NS @100ml/hr asymptomatic. OGT running Vital @30ml/hr 10ml residual noted, feeding held. Kelsey draining scant yellow urine with sediment. patient repositioned, oral care provided.
--- NOTE | 2020-01-12 04:50 | NUR ---
NURSE NOTES: patient obtunded with 7.5 ETT at 23cm lip on ventilator AC 16 TV 600 FiO2 80% PEEP 5. BP 136/50 HR 75 Afib on monitor. Left Subclavian TLC running Cardizem @ 10ml/hr, NS @100ml/hr asymptomatic. OGT running Vital @20ml/hr, prn reglan administered. Kelsey draining scant yellow urine with sediment. patient repositioned, oral care provided.
[2020-01-12 05:17] LABS: HEMATOCRIT 24.6 % (37.0-47.0); HEMOGLOBIN 7.5 G/DL (12.0-16.0); MEAN CORPUSCULAR VOLUME 84 FL (80-99); PLATELET COUNT 225 K/UL (150-450); RED BLOOD COUNT 2.93 M/UL (4.20-5.40); RED CELL DISTRIBUTION WIDTH 17.9 % (11.6-14.8); WHITE BLOOD COUNT 21.5 K/UL (4.8-10.8)
[2020-01-12 05:39] LABS: ALBUMIN/GLOBULIN RATIO 0.6 (1.0-2.7); BILIRUBIN,TOTAL 0.4 MG/DL (0.2-1.0); CALCIUM 8.6 MG/DL (8.5-10.1); PHOSPHORUS 5.1 MG/DL (2.5-4.9); POTASSIUM 4.6 MMOL/L (3.5-5.1)
--- NOTE | 2020-01-12 06:00 | NUR ---
NURSE NOTES: patient obtunded, hypoactive gag reflex, does not withdraw to pain. with 7.5 ETT at 23cm lip on ventilator AC 16 TV 600 FiO2 80% PEEP 5. BP 134/46 HR 79 Afib on monitor. Left Subclavian TLC running Cardizem @ 10ml/hr, NS @100ml/hr asymptomatic. OGT running Vital @30ml/hr. Kelsey draining scant yellow urine with sediment. patient with sacral redness covered with Optifoam, bilateral upper extremity weeping edema and ecchymosis, bilateral lower extremity edema. patient on P200 mattress, patient repositioned, oral care provided.
--- NOTE | 2020-01-12 07:22 | NUR ---
NURSE HAND-OFF REPORT: Latest Vital Signs: Temperature 99.1 , Pulse 79 , B/P 134 /46 , Respiratory Rate 23 , O2 SAT 95 , Mechanical Ventilator, O2 Flow Rate 10.0 . Vital Sign Comment: WNL EKG Rhythm: Atrial Fibrillation Rhythm change?: N MD Notified?: Eliezer -Dr. Mekhi ELIZONDO Response: No New Orders Received Latest Shaw Fall Score: 70 Fall Risk: High Risk Safety Measures: Call light Within Reach, Bed Alarm Zone 1, Side Rails Side Rails x3, Bed position Low and Locked. Fall Precautions: Door Sign Report given to ALEX Pierce.
--- NOTE | 2020-01-12 07:28 | NUR ---
NURSE NOTES: Patient received from ALEX Blanton. Patient is noted to be obtunded with a hypoactive gag reflex and does not withdraw to pain. Patient is orally intubated, 7.5 ETT, 23cm @ the lip line with ventilator settings: AC 16 TV 600 FiO2 80% PEEP 5. Afib on control electrician. Left Subclavian TLC running Cardizem @ 10ml/hr and NS @100ml/hr. OGT noted with tube feeds, Vital @ goal rate of 55ml/hr, currently feeding on hold. Kelsey intact, draining to urometer. Bilateral upper extremities noted with weeping edema and ecchymosis, bilateral lower extremities edema. patient on P200 mattress. Bed locked and in lowest position with call light within reach. Will resume plan of care.
--- NOTE | 2020-01-12 08:04 | Pulmonolgy Critical Care Note ---
Critical Care - Asmt/Plan Problems: (1) Acute respiratory failure due to COVID-19 (2) Acute on chronic systolic (congestive) heart failure (3) Atrial fibrillation (4) Diabetes mellitus (5) CHF (congestive heart failure) (6) Hypothyroidism (7) Chronic respiratory failure (8) History of hypertension Respiratory: monitor respiratory rate, adjust FIO2, CXR Cardiac: continue to monitor HR/BP Renal: F/U I&O, check electrolytes Gastrointestinal: continue feedings/current rate, adjust feedings, start feedings Endocrine: monitor blood sugar Neurologic: PRN Ativan Affect: PRN ativan Prophylaxis: Protonix Disposition: keep in ICU Time Spent (Minutes): 40 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: pomologist, cardio, renal Discussed with: nurses, consultants, 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 - Objective Last 24 Hour Vital Signs Date Time Temp Pulse Resp B/P (MAP) Pulse Ox O2 Delivery O2 Flow Rate FiO2 01/12/20 07:00 77 24 139/56 (83) 96 01/12/20 06:00 79 23 134/46 (75) 95 01/12/20 05:00 80 24 141/46 (77) 96 01/12/20 04:00 78 01/12/20 04:00 99.1 78 23 137/51 (79) 96 01/12/20 04:00 Mechanical Ventilator Mechanical Ventilator 01/12/20 04:00 80 01/12/20 03:00 77 23 140/49 (79) 95 01/12/20 02:40 72 22 80 01/12/20 02:00 75 23 136/50 (78) 96 01/12/20 01:00 76 23 136/46 (76) 95 01/12/20 00:00 Mechanical Ventilator Mechanical Ventilator 01/12/20 00:00 99.6 79 25 125/48 (73) 94 01/12/20 00:00 80 01/12/20 00:00 81 01/11/20 23:00 84 27 129/50 (76) 97 01/11/20 22:39 75 27 80 01/11/20 22:00 81 27 131/49 (76) 93 01/11/20 21:00 85 28 131/49 (76) 93 01/11/20 20:00 Mechanical Ventilator Mechanical Ventilator 01/11/20 20:00 80 01/11/20 20:00 87 01/11/20 20:00 99.7 83 27 137/62 (87) 91 01/11/20 19:00 85 27 80 01/11/20 19:00 81 26 134/44 (74) 93 01/11/20 18:30 81 17 134/57 (82) 97 01/11/20 18:00 81 24 119/56 (77) 96 01/11/20 17:30 82 23 124/47 (72) 96 01/11/20 17:00 83 23 126/50 (75) 96 01/11/20 16:30 82 23 120/52 (74) 95 01/11/20 16:00 80 01/11/20 16:00 99.9 85 24 127/47 (73) 95 01/11/20 16:00 83 01/11/20 16:00 Mechanical Ventilator Mechanical Ventilator 01/11/20 15:30 85 25 138/46 (76) 93 01/11/20 15:15 80 27 80 01/11/20 15:00 78 23 117/41 (66) 96 01/11/20 14:30 79 24 110/50 (70) 97 01/11/20 14:00 80 23 115/48 (70) 97 01/11/20 13:30 84 26 130/53 (78) 97 01/11/20 13:00 81 26 123/49 (73) 96 01/11/20 12:30 80 24 124/48 (73) 95 01/11/20 12:00 Mechanical Ventilator Mechanical Ventilator 01/11/20 12:00 99.6 84 26 131/52 (78) 94 01/11/20 12:00 88 01/11/20 12:00 80 01/11/20 11:30 83 25 123/45 (71) 95 01/11/20 11:00 85 26 128/48 (74) 94 01/11/20 10:45 85 28 80 01/11/20 10:30 89 27 142/53 (82) 90 01/11/20 10:00 84 29 130/54 (79) 94 01/11/20 09:30 82 26 123/44 (70) 94 01/11/20 09:00 81 26 131/45 (73) 95 01/11/20 08:30 81 24 115/49 (71) 96 Status: sedated HEENT: atraumatic Lungs: clear, chest wall tender Heart: HR/BP stable Abdomen: soft Extremities: no C/C/E Accucheck: 189 Critical Care - Subjective ROS Limited/Unobtainable: Yes Condition: critical EKG Rhythm: Sinus Rhythm FI02: 80 Vent Support Breath Rate: 16 Vent Support Mode: AC Vent Tidal Volume: 600 Sputum Amount: Small PEEP: 5.0 PIP: 35 Tube Feeding Amount: 0 I&O: Intake and Output 01/11/20 01/12/20 19:00 07:00 Intake Total 2520.10896 ml 1659.00007 ml Output Total 390 ml 135 ml Balance 2130.54243 ml 1524.85584 ml Free Water 40 ml 15 ml IV Total 1930.22929 ml 1534.37700 ml Tube Feeding 550 ml 110 ml Output Urine Total 390 ml 135 ml # Bowel Movements 1 CXR: extensive bilateral infiltrate ET-Tube: 7.5 ET Position: 23 Labs: Laboratory Tests Test 01/11/20 12:34 01/11/20 18:22 01/12/20 00:01 01/12/20 03:55 POC Whole Blood Glucose 186 MG/DL (74-106) H 233 MG/DL (74-106) H Pending White Blood Count 21.5 K/UL (4.8-10.8) H Red Blood Count 2.93 M/UL (4.20-5.40) L Hemoglobin 7.5 G/DL (12.0-16.0) L Hematocrit 24.6 % (37.0-47.0) L Mean Corpuscular Volume 84 FL (80-99) Mean Corpuscular Hemoglobin 25.7 PG (27.0-31.0) L Mean Corpuscular Hemoglobin Concent 30.6 G/DL (32.0-36.0) L Red Cell Distribution Width 17.9 % (11.6-14.8) H Platelet Count 225 K/UL (150-450) Mean Platelet Volume 6.7 FL (6.5-10.1) Neutrophils (%) (Auto) % (45.0-75.0) Lymphocytes (%) (Auto) % (20.0-45.0) Monocytes (%) (Auto) % (1.0-10.0) Eosinophils (%) (Auto) % (0.0-3.0) Basophils (%) (Auto) % (0.0-2.0) Differential Total Cells Counted 100 Neutrophils % (Manual) 85 % (45-75) H Lymphocytes % (Manual) 1 % (20-45) L Monocytes % (Manual) 5 % (1-10) Eosinophils % (Manual) 0 % (0-3) Basophils % (Manual) 0 % (0-2) Metamyelocytes % 1 % (0-0) H Myelocytes % 2 % (0-0) H Band Neutrophils 6 % (0-8) Platelet Estimate Adequate Platelet Morphology Normal Hypochromasia 1+ Sodium Level 139 MMOL/L (136-145) Potassium Level 4.6 MMOL/L (3.5-5.1) Chloride Level 105 MMOL/L (98-107) Carbon Dioxide Level 19 MMOL/L (21-32) L Anion Gap 15 mmol/L (5-15) Blood Urea Nitrogen 99 mg/dL (7-18) H Creatinine 3.0 MG/DL (0.55-1.30) H Estimat Glomerular Filtration Rate 14.8 mL/min (>60) Glucose Level 204 MG/DL (74-106) H Calcium Level 8.6 MG/DL (8.5-10.1) Phosphorus Level 5.1 MG/DL (2.5-4.9) H Magnesium Level 2.4 MG/DL (1.8-2.4) Total Bilirubin 0.4 MG/DL (0.2-1.0) Aspartate Amino Transf (AST/SGOT) 43 U/L (15-37) H Alanine Aminotransferase (ALT/SGPT) 162 U/L (12-78) H Alkaline Phosphatase 92 U/L (46-116) Total Protein 5.5 G/DL (6.4-8.2) L Albumin 2.0 G/DL (3.4-5.0) L Globulin 3.5 g/dL Albumin/Globulin Ratio 0.6 (1.0-2.7) L Test 01/12/20 06:14 POC Whole Blood Glucose Pending Ann-Marie Graves MD Jan 12, 2020 08:04
[2020-01-12] MEDS: Pantoprazole Inj IV SCH ×2 (08:08→21:11)
[2020-01-12] MEDS: Heparin 5000 units/ml inj SUBQ SCH ×2 (08:08→21:00)
[2020-01-12] MEDS: Metoclopramide 10mg/2ml Inj IVP PRN (08:09)
--- NOTE | 2020-01-12 09:00 | NUR ---
NURSE NOTES: Dr Mandel at bedside assessing pt. Updated him on pt's condition. Oral care done. Pt repositioned.
--- NOTE | 2020-01-12 09:20 | NUR ---
NURSE NOTES: Telephone consent obtained for pt's cousin, Laly, for PRBC transfusion, as ordered by Dr Graves.
--- NOTE | 2020-01-12 10:08 | NUR ---
INSURANCE CLINICALS FAXED TO [facility] [phone] PH [phone]
--- NOTE | 2020-01-12 10:41 | NUR ---
RADIOLOGY DEPT., CHEST X-RAY DONE.-P.DYE
--- NOTE | 2020-01-12 11:00 | NUR ---
NURSE NOTES: diesel technology instructor at bedside performing Renal Ultrasound.
--- NOTE | 2020-01-12 11:30 | NUR ---
NURSE NOTES: First unit PRNC started at this time. Temp 99.1, HR: 79, B/P: 147/49
--- NOTE | 2020-01-12 11:42 | Infectious Diseases Prog Note ---
Assessment/Plan Assessment: Asystole arrest Sepsis COVID19 pneumonia Acute hypoxic resp failure sp NRB> Bipap 100% Fio2> VDRF 100% -01/01 CXR: Vascular congestion/developing failure and bilateral patchy infiltrates, slightly worse since prior exam. Small bilateral pleural effusions.Prominent mediastinum likely due to tortuous/ectatic thoracic aorta. -12/31 CXR: Centrally predominant interstitial and airspace opacities, pulmonary edema most likely. Cardiomegaly. Fever; SP No leukocytosis Dm2 COPD HTN former smoker CAD CHF RA GERD hypothyroidism Afib [place] resident ([facility]) Plan: - Start Meropenem given lack of response to Zosyn - Cont Linazolid #6 - D/C Zosyn #6 - 01/09/20 SP Remdesivir #5 per [facility] [place] patient cannot provide consent; Benefits outweigh risks. - 01/07/20 Ceftriaxone #7 - 12/31 SP Cefepime x1, Flagyl x1 -f/u cx -Monitor CBC/CMP, temperatures -ETT/ICU care D/w RN Thank you for consulting [facility]. Will continue to follow along with you. Subjective Allergies: Coded Allergies: DOXYCYCLINE (Verified Allergy, Unknown, 04/04/19) RIFAMPIN (Verified Allergy, Unknown, 04/04/19) Afebrile On Vent 80% O2 WBCs up to 21 Objective Last 24 Hour Vital Signs Date Time Temp Pulse Resp B/P (MAP) Pulse Ox O2 Delivery O2 Flow Rate FiO2 01/12/20 10:00 81 22 145/51 (82) 96 01/12/20 09:00 80 20 148/52 (84) 97 01/12/20 08:00 Mechanical Ventilator Mechanical Ventilator 01/12/20 08:00 80 01/12/20 08:00 99.5 77 23 142/53 (82) 96 01/12/20 07:49 75 20 80 01/12/20 07:00 77 24 139/56 (83) 96 01/12/20 06:00 79 23 134/46 (75) 95 01/12/20 05:00 80 24 141/46 (77) 96 01/12/20 04:00 78 01/12/20 04:00 99.1 78 23 137/51 (79) 96 01/12/20 04:00 Mechanical Ventilator Mechanical Ventilator 01/12/20 04:00 80 01/12/20 03:00 77 23 140/49 (79) 95 01/12/20 02:40 72 22 80 01/12/20 02:00 75 23 136/50 (78) 96 01/12/20 01:00 76 23 136/46 (76) 95 01/12/20 00:00 Mechanical Ventilator Mechanical Ventilator 01/12/20 00:00 99.6 79 25 125/48 (73) 94 01/12/20 00:00 80 01/12/20 00:00 81 01/11/20 23:00 84 27 129/50 (76) 97 01/11/20 22:39 75 27 80 01/11/20 22:00 81 27 131/49 (76) 93 01/11/20 21:00 85 28 131/49 (76) 93 01/11/20 20:00 Mechanical Ventilator Mechanical Ventilator 01/11/20 20:00 80 01/11/20 20:00 87 01/11/20 20:00 99.7 83 27 137/62 (87) 91 01/11/20 19:00 85 27 80 01/11/20 19:00 81 26 134/44 (74) 93 01/11/20 18:30 81 17 134/57 (82) 97 01/11/20 18:00 81 24 119/56 (77) 96 01/11/20 17:30 82 23 124/47 (72) 96 01/11/20 17:00 83 23 126/50 (75) 96 01/11/20 16:30 82 23 120/52 (74) 95 01/11/20 16:00 80 01/11/20 16:00 99.9 85 24 127/47 (73) 95 01/11/20 16:00 83 01/11/20 16:00 Mechanical Ventilator Mechanical Ventilator 01/11/20 15:30 85 25 138/46 (76) 93 01/11/20 15:15 80 27 80 01/11/20 15:00 78 23 117/41 (66) 96 01/11/20 14:30 79 24 110/50 (70) 97 01/11/20 14:00 80 23 115/48 (70) 97 01/11/20 13:30 84 26 130/53 (78) 97 01/11/20 13:00 81 26 123/49 (73) 96 01/11/20 12:30 80 24 124/48 (73) 95 01/11/20 12:00 Mechanical Ventilator Mechanical Ventilator 01/11/20 12:00 99.6 84 26 131/52 (78) 94 01/11/20 12:00 88 01/11/20 12:00 80 Height (Feet): 5 Height (Inches): 2.00 Weight (Pounds): 155 GENERAL: On Vent 80% O2 HEENT: NCAT, MMM LUNGS: Equal rise and fall of chest B/L no accessory muscle use ABDOMEN: Soft, nondistended EXTREMITIES: No cyanosis, clubbing, or edema. Laboratory Tests Test 01/11/20 12:34 01/11/20 18:22 01/12/20 00:01 01/12/20 03:55 POC Whole Blood Glucose 186 MG/DL (74-106) H 233 MG/DL (74-106) H Pending White Blood Count 21.5 K/UL (4.8-10.8) H Red Blood Count 2.93 M/UL (4.20-5.40) L Hemoglobin 7.5 G/DL (12.0-16.0) L Hematocrit 24.6 % (37.0-47.0) L Mean Corpuscular Volume 84 FL (80-99) Mean Corpuscular Hemoglobin 25.7 PG (27.0-31.0) L Mean Corpuscular Hemoglobin Concent 30.6 G/DL (32.0-36.0) L Red Cell Distribution Width 17.9 % (11.6-14.8) H Platelet Count 225 K/UL (150-450) Mean Platelet Volume 6.7 FL (6.5-10.1) Neutrophils (%) (Auto) % (45.0-75.0) Lymphocytes (%) (Auto) % (20.0-45.0) Monocytes (%) (Auto) % (1.0-10.0) Eosinophils (%) (Auto) % (0.0-3.0) Basophils (%) (Auto) % (0.0-2.0) Differential Total Cells Counted 100 Neutrophils % (Manual) 85 % (45-75) H Lymphocytes % (Manual) 1 % (20-45) L Monocytes % (Manual) 5 % (1-10) Eosinophils % (Manual) 0 % (0-3) Basophils % (Manual) 0 % (0-2) Metamyelocytes % 1 % (0-0) H Myelocytes % 2 % (0-0) H Band Neutrophils 6 % (0-8) Platelet Estimate Adequate Platelet Morphology Normal Hypochromasia 1+ Sodium Level 139 MMOL/L (136-145) Potassium Level 4.6 MMOL/L (3.5-5.1) Chloride Level 105 MMOL/L (98-107) Carbon Dioxide Level 19 MMOL/L (21-32) L Anion Gap 15 mmol/L (5-15) Blood Urea Nitrogen 99 mg/dL (7-18) H Creatinine 3.0 MG/DL (0.55-1.30) H Estimat Glomerular Filtration Rate 14.8 mL/min (>60) Glucose Level 204 MG/DL (74-106) H Calcium Level 8.6 MG/DL (8.5-10.1) Phosphorus Level 5.1 MG/DL (2.5-4.9) H Magnesium Level 2.4 MG/DL (1.8-2.4) Total Bilirubin 0.4 MG/DL (0.2-1.0) Aspartate Amino Transf (AST/SGOT) 43 U/L (15-37) H Alanine Aminotransferase (ALT/SGPT) 162 U/L (12-78) H Alkaline Phosphatase 92 U/L (46-116) Total Protein 5.5 G/DL (6.4-8.2) L Albumin 2.0 G/DL (3.4-5.0) L Globulin 3.5 g/dL Albumin/Globulin Ratio 0.6 (1.0-2.7) L Test 01/12/20 06:14 01/12/20 08:51 POC Whole Blood Glucose Pending Arterial Blood pH 7.291 (7.350-7.450) Arterial Blood Partial Pressure CO2 35.6 mmHg (35.0-45.0) Arterial Blood Partial Pressure O2 89.2 mmHg (75.0-100.0) Arterial Blood HCO3 16.8 mmol/L (22.0-26.0) *L Arterial Blood Oxygen Saturation 96.4 % (95-100) Arterial Blood Base Excess -9.0 (-2-2) L Chester Test Positive Current Medications Medications (Trade) Dose Ordered Sig/Brett Route PRN Reason Start Time Stop Time Status Last Admin Dose Admin Acetaminophen (Tylenol) 650 mg Q4H PRN ORAL FEVER 01/01/20 07:00 01/31/20 06:59 01/09/20 22:58 Acetaminophen (Tylenol) 650 mg Q4H PRN RECTAL Temp >100.5 01/03/20 09:30 02/02/20 09:29 01/03/20 12:18 Albuterol/ Ipratropium (Combivent Respimat) 1 puff Q4H PRN INH Shortness of Breath 01/05/20 20:00 02/04/20 19:59 Allopurinol (allopurinoL) 300 mg DAILY NG 01/07/20 10:45 02/06/20 10:44 01/12/20 08:09 Chlorhexidine Gluconate (Silvia-Hex 2%) 1 applic DAILY@2000 TOPIC 01/07/20 20:00 04/06/20 19:59 01/11/20 20:01 Dextrose (Dextrose 50%) 25 ml Q30M PRN IV Hypoglycemia 01/01/20 08:45 03/31/20 08:44 Dextrose (Dextrose 50%) 50 ml Q30M PRN IV Hypoglycemia 01/01/20 08:45 03/31/20 08:44 Diltiazem HCl 125 ml @ 0 mls/hr Q24H IVPB 01/12/20 00:00 01/12/20 23:59 01/12/20 06:24 Diltiazem HCl (Cardizem) 15 mg Q12H PRN IVP For High Blood Pressure 01/03/20 07:00 02/02/20 06:59 Heparin Sodium (Porcine) (Heparin 5000 units/ml) 5,000 units EVERY 12 HOURS SUBQ 01/01/20 09:00 02/15/20 08:59 01/10/20 20:43 Insulin Aspart (NovoLOG) Q6HR SUBQ 01/09/20 00:00 03/31/20 11:29 01/12/20 06:16 Levothyroxine Sodium (Synthroid) 200 mcg DAILY@0630 ORAL 01/12/20 06:30 02/11/20 06:29 01/12/20 06:10 Linezolid 300 ml @ 300 mls/hr Q12HR IVPB 01/07/20 21:00 01/14/20 20:59 01/12/20 08:09 Lorazepam (Ativan 2mg/ml 1ml) 2 mg Q2H PRN IV For Anxiety 01/09/20 23:45 01/16/20 23:44 01/10/20 21:38 Metoclopramide HCl (Reglan) 10 mg Q6H PRN IVP Nausea & Vomiting 01/11/20 12:15 02/10/20 12:14 01/12/20 08:09 Morphine Sulfate (Morphine Sulfate) 4 mg Q4H PRN IVP For Pain 01/09/20 23:45 01/16/20 23:44 01/09/20 23:50 Ondansetron HCl (Zofran) 4 mg Q6H PRN IVP Nausea & Vomiting 01/01/20 07:00 01/31/20 06:59 Pantoprazole (Protonix) 40 mg Q12HR IV 01/05/20 21:00 02/04/20 08:59 01/12/20 08:08 Piperacillin Sod/ Tazobactam Sod 3.375 gm/Sodium Chloride 110 ml @ 27.5 mls/hr Q12H IVPB 01/07/20 13:00 01/14/20 12:59 01/11/20 23:55 Sodium Chloride 1,000 ml @ 100 mls/hr Q10H IV 01/08/20 08:15 02/07/20 08:14 01/12/20 11:26 Mehrdad Yepez MD Jan 12, 2020 11:42
--- NOTE | 2020-01-12 11:45 | NUR ---
NURSE NOTES: 15 post start of transfusion. Temp 99.1, HR: 74, B/P: 147/49. Pt tolerating well.
--- NOTE | 2020-01-12 11:53 | NUR ---
CASE MANAGEMENT:REVIEW 01/12/20 SI: COVID PNA. INTUBATED . CHF . DM . CHRONIC RESPIRATORY FAILURE 99.6 77 23 142/53 96% ON VENT SUPPORT W/80% FIO2 WBC+21.5 H/H-7.5/24.6 BUN+99 CR+3.0 MG 5.1 AST/ALT 43/162 ALB 2.0 ABG: pH 7.291 HCO3 16.8 BASE EXCESS -9.0 IS: IVF@100/HR IV DILTIAZEM PROTOCOL IV LINEZOLID Q12 : ICU STATUS DCP: FROM [place] [employer] PLAN: MONITOR H/H ~TRENDING UP CONT RESP CARE FiO2 ADJUSTMENTS CASE MANAGEMENT:REVIEW 01/11/20 SI: S/P CARDIAC ARREST 01/04 BILATERAL COVID-19 PNA. INTUBATED. A-FIB . COPD . CAD 100.2 81 25 128/49 98% ON VENT SUPPORT W/80% FIO2 WBC+19.3 H/H 7.7/25.4 BUN+78 CR+2.6 AST/ALT 85/2.5 ALB 2.3 ABG: pH 7.318 BASE EXCESS -3.9 IS: IV LINEZOLID Q12 IV ZOSYN Q12~Finish then DC IVF@100/HR DECADRON NG QD~Finish then DC HEPARIN SQ Q12 BLOOD TX : ICU STATUS DCP: FROM [place] [employer] PLAN: Monitor for fevers MONITOR H/H ~TRENDING UP CONT RESP CARE FiO2 ADJUSTMENTS
--- NOTE | 2020-01-12 12:42 | NUR ---
*-* INSURANCE *-* UPDATED CLINICALS AND REVIEWS HAVE BEEN FAXED TO: ANGEL[employer] T:[phone] F:[phone]
[2020-01-12] MEDS ORDERED: Meropenem 500 MG in NS 55 ML IVPB SCH (13:00)
--- NOTE | 2020-01-12 13:05 | Internal Med Progress Note ---
Subjective Date of Service: Jan 12, 2020 Physician Name Harris Greenfield Attending Physician Fernando Peguero MD Current Medications Medications (Trade) Dose Ordered Sig/Brett Route PRN Reason Start Time Stop Time Status Last Admin Dose Admin Acetaminophen (Tylenol) 650 mg Q4H PRN ORAL FEVER 01/01/20 07:00 01/31/20 06:59 01/09/20 22:58 Acetaminophen (Tylenol) 650 mg Q4H PRN RECTAL Temp >100.5 01/03/20 09:30 02/02/20 09:29 01/03/20 12:18 Albuterol/ Ipratropium (Combivent Respimat) 1 puff Q4H PRN INH Shortness of Breath 01/05/20 20:00 02/04/20 19:59 Allopurinol (allopurinoL) 300 mg DAILY NG 01/07/20 10:45 02/06/20 10:44 01/12/20 08:09 Chlorhexidine Gluconate (Silvia-Hex 2%) 1 applic DAILY@2000 TOPIC 01/07/20 20:00 04/06/20 19:59 01/11/20 20:01 Dextrose (Dextrose 50%) 25 ml Q30M PRN IV Hypoglycemia 01/01/20 08:45 03/31/20 08:44 Dextrose (Dextrose 50%) 50 ml Q30M PRN IV Hypoglycemia 01/01/20 08:45 03/31/20 08:44 Diltiazem HCl 125 ml @ 0 mls/hr Q24H IVPB 01/12/20 00:00 01/12/20 23:59 01/12/20 06:24 Diltiazem HCl (Cardizem) 15 mg Q12H PRN IVP For High Blood Pressure 01/03/20 07:00 02/02/20 06:59 Heparin Sodium (Porcine) (Heparin 5000 units/ml) 5,000 units EVERY 12 HOURS SUBQ 01/01/20 09:00 02/15/20 08:59 01/10/20 20:43 Insulin Aspart (NovoLOG) Q6HR SUBQ 01/09/20 00:00 03/31/20 11:29 01/12/20 12:08 Levothyroxine Sodium (Synthroid) 200 mcg DAILY@0630 ORAL 01/12/20 06:30 02/11/20 06:29 01/12/20 06:10 Linezolid 300 ml @ 300 mls/hr Q12HR IVPB 01/07/20 21:00 01/14/20 20:59 01/12/20 08:09 Lorazepam (Ativan 2mg/ml 1ml) 2 mg Q2H PRN IV For Anxiety 01/09/20 23:45 01/16/20 23:44 01/10/20 21:38 Meropenem 500 mg/ Sodium Chloride 55 ml @ 110 mls/hr Q24H IVPB 01/12/20 13:00 01/17/20 12:59 01/12/20 12:51 Metoclopramide HCl (Reglan) 10 mg Q6H PRN IVP Nausea & Vomiting 01/11/20 12:15 02/10/20 12:14 01/12/20 08:09 Morphine Sulfate (Morphine Sulfate) 4 mg Q4H PRN IVP For Pain 01/09/20 23:45 01/16/20 23:44 01/09/20 23:50 Ondansetron HCl (Zofran) 4 mg Q6H PRN IVP Nausea & Vomiting 01/01/20 07:00 01/31/20 06:59 Pantoprazole (Protonix) 40 mg Q12HR IV 01/05/20 21:00 02/04/20 08:59 01/12/20 08:08 Sodium Chloride 1,000 ml @ 100 mls/hr Q10H IV 01/08/20 08:15 02/07/20 08:14 01/12/20 11:26 Allergies: Coded Allergies: DOXYCYCLINE (Verified Allergy, Unknown, 04/04/19) RIFAMPIN (Verified Allergy, Unknown, 04/04/19) ROS Limited/Unobtainable: Yes Subjective 84 YO F admitted with hypoxia. Now COVID 19 pneumonia. Cover for Int pallavi-DR Peguero. ICU. Intubated and sedated Objective Last Vital Signs Date Time Temp Pulse Resp B/P (MAP) Pulse Ox O2 Delivery O2 Flow Rate FiO2 01/12/20 12:00 80 01/12/20 12:00 99.1 73 20 144/51 (82) 97 01/12/20 12:00 Mechanical Ventilator Mechanical Ventilator Laboratory Tests Test 01/11/20 18:22 01/12/20 00:01 01/12/20 03:55 01/12/20 06:14 POC Whole Blood Glucose 233 MG/DL (74-106) H Pending Pending White Blood Count 21.5 K/UL (4.8-10.8) H Red Blood Count 2.93 M/UL (4.20-5.40) L Hemoglobin 7.5 G/DL (12.0-16.0) L Hematocrit 24.6 % (37.0-47.0) L Mean Corpuscular Volume 84 FL (80-99) Mean Corpuscular Hemoglobin 25.7 PG (27.0-31.0) L Mean Corpuscular Hemoglobin Concent 30.6 G/DL (32.0-36.0) L Red Cell Distribution Width 17.9 % (11.6-14.8) H Platelet Count 225 K/UL (150-450) Mean Platelet Volume 6.7 FL (6.5-10.1) Neutrophils (%) (Auto) % (45.0-75.0) Lymphocytes (%) (Auto) % (20.0-45.0) Monocytes (%) (Auto) % (1.0-10.0) Eosinophils (%) (Auto) % (0.0-3.0) Basophils (%) (Auto) % (0.0-2.0) Differential Total Cells Counted 100 Neutrophils % (Manual) 85 % (45-75) H Lymphocytes % (Manual) 1 % (20-45) L Monocytes % (Manual) 5 % (1-10) Eosinophils % (Manual) 0 % (0-3) Basophils % (Manual) 0 % (0-2) Metamyelocytes % 1 % (0-0) H Myelocytes % 2 % (0-0) H Band Neutrophils 6 % (0-8) Platelet Estimate Adequate Platelet Morphology Normal Hypochromasia 1+ Sodium Level 139 MMOL/L (136-145) Potassium Level 4.6 MMOL/L (3.5-5.1) Chloride Level 105 MMOL/L (98-107) Carbon Dioxide Level 19 MMOL/L (21-32) L Anion Gap 15 mmol/L (5-15) Blood Urea Nitrogen 99 mg/dL (7-18) H Creatinine 3.0 MG/DL (0.55-1.30) H Estimat Glomerular Filtration Rate 14.8 mL/min (>60) Glucose Level 204 MG/DL (74-106) H Calcium Level 8.6 MG/DL (8.5-10.1) Phosphorus Level 5.1 MG/DL (2.5-4.9) H Magnesium Level 2.4 MG/DL (1.8-2.4) Total Bilirubin 0.4 MG/DL (0.2-1.0) Aspartate Amino Transf (AST/SGOT) 43 U/L (15-37) H Alanine Aminotransferase (ALT/SGPT) 162 U/L (12-78) H Alkaline Phosphatase 92 U/L (46-116) Total Protein 5.5 G/DL (6.4-8.2) L Albumin 2.0 G/DL (3.4-5.0) L Globulin 3.5 g/dL Albumin/Globulin Ratio 0.6 (1.0-2.7) L Test 01/12/20 08:51 Arterial Blood pH 7.291 (7.350-7.450) Arterial Blood Partial Pressure CO2 35.6 mmHg (35.0-45.0) Arterial Blood Partial Pressure O2 89.2 mmHg (75.0-100.0) Arterial Blood HCO3 16.8 mmol/L (22.0-26.0) *L Arterial Blood Oxygen Saturation 96.4 % (95-100) Arterial Blood Base Excess -9.0 (-2-2) L Chester Test Positive Intake and Output 01/11/20 01/12/20 19:00 07:00 Intake Total 2520.73422 ml 1659.02121 ml Output Total 390 ml 135 ml Balance 2130.69307 ml 1524.57997 ml Free Water 40 ml 15 ml IV Total 1930.99738 ml 1534.24721 ml Tube Feeding 550 ml 110 ml Output Urine Total 390 ml 135 ml # Bowel Movements 1 Objective PHYSICAL EXAMINATION: GENERAL: The patient is a well-developed and well-nourished female, in moderate respiratory distress. HEENT: Eyes, pupils equal and responsive to light and accommodation. Extraocular movements are intact. NECK: Supple without lymphadenopathy. CHEST: Mech vent; Decreased breath sounds at bilateral bases with crackles. Otherwise, without wheezes. CARDIOVASCULAR: Regular rhythm and rate. S1, S2 normal without murmurs, rubs, or gallops. ABDOMEN: Soft, nontender, and nondistended. Positive bowel sounds. No evidence of hepatosplenomegaly. Currently, no rebound or guarding noted. EXTREMITIES: Negative for clubbing, cyanosis, or edema. RECTAL/GENITAL: Not performed. NEUROLOGIC: Cranial nerves II through XII are grossly intact without focal deficits. Assessment/Plan Assessment/Plan ASSESSMENT: This is an 84-year-old female with: 1. COVID-19 positive. 2. Bilateral pneumonia. 3. Hypertension. 4. Atrial fibrillation. 5. Chronic obstructive pulmonary disease. 6. Coronary artery disease. 7. Congestive heart failure. 8. Diabetes type 2. 9. Hypothyroidism. 10. Hypercholesterolemia. 11. Rheumatoid arthritis. 12. Gastroesophageal reflux disease. 13. Respiratory failure 14. S/P cardiac arrest 01/05/20 TREATMENT: 1. COVID-19 positive/pneumonia. Continue decadron; S/P remdesivir 1. Pulmonary/critical care=Dr. Ann-Marie Graves. 2. Hypertension. Continue hydralazine as above. 3. Atrial fibrillation. Continue digoxin as above. 4. Chronic obstructive pulmonary disease. As above, a Pulmonary consultation has been obtained with Dr. Ann-Marie Graves. The patient is currently on albuterol nebulized q.4h. p..r.n. 5. Coronary disease/congestive heart failure. An echocardiogram is pending. A Cardiology consultation has been obtained with Dr. Gaming. 6. Diabetes type 2. NovoLog sliding scale has been instituted. 7. Hypothyroidism. Continue Synthroid as above. 8. Hypercholesterolemia. Continue atorvastatin as above. 9. Rheumatoid arthritis. 10. Gastroesophageal reflux disease. Continue Protonix as above. 11. Continue mech vent per pulmonary 12. ABX=zosyn and linezolid 13. CODE STATUS: Full code 14. DVT prophylaxis: Heparin subcu. Harris Greenfield MD Jan 12, 2020 13:05
--- NOTE | 2020-01-12 13:20 | NUR ---
NURSE NOTES: First unit PRBC transfusion completed. Temp 98.7, P 71, B/P 138/51. No transfusion adverse reaction noted.
--- NOTE | 2020-01-12 13:31 | Surgery Progress Note ---
Surgery Progress Note Subjective Procedure Performed left subclavian central venous catheter insertion Additional Comments no acute events labs noted exam stable ill appearing Objective Last 24 Hour Vital Signs Date Time Temp Pulse Resp B/P (MAP) Pulse Ox O2 Delivery O2 Flow Rate FiO2 01/12/20 13:00 70 20 138/51 (80) 99 01/12/20 12:00 80 01/12/20 12:00 99.1 73 20 144/51 (82) 97 01/12/20 12:00 Mechanical Ventilator Mechanical Ventilator 01/12/20 11:00 79 23 147/49 (81) 95 01/12/20 10:00 81 22 145/51 (82) 96 01/12/20 09:00 80 20 148/52 (84) 97 01/12/20 08:00 Mechanical Ventilator Mechanical Ventilator 01/12/20 08:00 80 01/12/20 08:00 99.5 77 23 142/53 (82) 96 01/12/20 07:49 75 20 80 01/12/20 07:00 77 24 139/56 (83) 96 01/12/20 06:00 79 23 134/46 (75) 95 01/12/20 05:00 80 24 141/46 (77) 96 01/12/20 04:00 78 01/12/20 04:00 99.1 78 23 137/51 (79) 96 01/12/20 04:00 Mechanical Ventilator Mechanical Ventilator 01/12/20 04:00 80 01/12/20 03:00 77 23 140/49 (79) 95 01/12/20 02:40 72 22 80 01/12/20 02:00 75 23 136/50 (78) 96 01/12/20 01:00 76 23 136/46 (76) 95 01/12/20 00:00 Mechanical Ventilator Mechanical Ventilator 01/12/20 00:00 99.6 79 25 125/48 (73) 94 01/12/20 00:00 80 01/12/20 00:00 81 01/11/20 23:00 84 27 129/50 (76) 97 01/11/20 22:39 75 27 80 01/11/20 22:00 81 27 131/49 (76) 93 01/11/20 21:00 85 28 131/49 (76) 93 01/11/20 20:00 Mechanical Ventilator Mechanical Ventilator 01/11/20 20:00 80 01/11/20 20:00 87 01/11/20 20:00 99.7 83 27 137/62 (87) 91 01/11/20 19:00 85 27 80 01/11/20 19:00 81 26 134/44 (74) 93 01/11/20 18:30 81 17 134/57 (82) 97 01/11/20 18:00 81 24 119/56 (77) 96 01/11/20 17:30 82 23 124/47 (72) 96 01/11/20 17:00 83 23 126/50 (75) 96 01/11/20 16:30 82 23 120/52 (74) 95 01/11/20 16:00 80 01/11/20 16:00 99.9 85 24 127/47 (73) 95 01/11/20 16:00 83 01/11/20 16:00 Mechanical Ventilator Mechanical Ventilator 01/11/20 15:30 85 25 138/46 (76) 93 01/11/20 15:15 80 27 80 01/11/20 15:00 78 23 117/41 (66) 96 01/11/20 14:30 79 24 110/50 (70) 97 01/11/20 14:00 80 23 115/48 (70) 97 I&O Intake and Output 01/11/20 01/12/20 18:59 06:59 Intake Total 2373.32002 ml 1718.11370 ml Output Total 360 ml 160 ml Balance 2013.41548 ml 1558.11654 ml Free Water 40 ml 15 ml IV Total 1838.28413 ml 1538.72865 ml Tube Feeding 495 ml 165 ml Output Urine Total 360 ml 160 ml # Bowel Movements 1 Dressing: other Wound: other Cardiovascular: RSR Respiratory: decreased breath sounds Abdomen: soft, non-tender, present bowel sounds Extremities: no tenderness, no cyanosis Laboratory Tests Test 01/11/20 18:22 01/12/20 00:01 01/12/20 03:55 01/12/20 06:14 POC Whole Blood Glucose 233 MG/DL (74-106) H Pending Pending White Blood Count 21.5 K/UL (4.8-10.8) H Red Blood Count 2.93 M/UL (4.20-5.40) L Hemoglobin 7.5 G/DL (12.0-16.0) L Hematocrit 24.6 % (37.0-47.0) L Mean Corpuscular Volume 84 FL (80-99) Mean Corpuscular Hemoglobin 25.7 PG (27.0-31.0) L Mean Corpuscular Hemoglobin Concent 30.6 G/DL (32.0-36.0) L Red Cell Distribution Width 17.9 % (11.6-14.8) H Platelet Count 225 K/UL (150-450) Mean Platelet Volume 6.7 FL (6.5-10.1) Neutrophils (%) (Auto) % (45.0-75.0) Lymphocytes (%) (Auto) % (20.0-45.0) Monocytes (%) (Auto) % (1.0-10.0) Eosinophils (%) (Auto) % (0.0-3.0) Basophils (%) (Auto) % (0.0-2.0) Differential Total Cells Counted 100 Neutrophils % (Manual) 85 % (45-75) H Lymphocytes % (Manual) 1 % (20-45) L Monocytes % (Manual) 5 % (1-10) Eosinophils % (Manual) 0 % (0-3) Basophils % (Manual) 0 % (0-2) Metamyelocytes % 1 % (0-0) H Myelocytes % 2 % (0-0) H Band Neutrophils 6 % (0-8) Platelet Estimate Adequate Platelet Morphology Normal Hypochromasia 1+ Sodium Level 139 MMOL/L (136-145) Potassium Level 4.6 MMOL/L (3.5-5.1) Chloride Level 105 MMOL/L (98-107) Carbon Dioxide Level 19 MMOL/L (21-32) L Anion Gap 15 mmol/L (5-15) Blood Urea Nitrogen 99 mg/dL (7-18) H Creatinine 3.0 MG/DL (0.55-1.30) H Estimat Glomerular Filtration Rate 14.8 mL/min (>60) Glucose Level 204 MG/DL (74-106) H Calcium Level 8.6 MG/DL (8.5-10.1) Phosphorus Level 5.1 MG/DL (2.5-4.9) H Magnesium Level 2.4 MG/DL (1.8-2.4) Total Bilirubin 0.4 MG/DL (0.2-1.0) Aspartate Amino Transf (AST/SGOT) 43 U/L (15-37) H Alanine Aminotransferase (ALT/SGPT) 162 U/L (12-78) H Alkaline Phosphatase 92 U/L (46-116) Total Protein 5.5 G/DL (6.4-8.2) L Albumin 2.0 G/DL (3.4-5.0) L Globulin 3.5 g/dL Albumin/Globulin Ratio 0.6 (1.0-2.7) L Test 01/12/20 08:51 01/12/20 11:53 Arterial Blood pH 7.291 (7.350-7.450) Arterial Blood Partial Pressure CO2 35.6 mmHg (35.0-45.0) Arterial Blood Partial Pressure O2 89.2 mmHg (75.0-100.0) Arterial Blood HCO3 16.8 mmol/L (22.0-26.0) *L Arterial Blood Oxygen Saturation 96.4 % (95-100) Arterial Blood Base Excess -9.0 (-2-2) L [place] Test Positive POC Whole Blood Glucose 209 MG/DL (74-106) H Plan Problems: (1) Acute on chronic systolic (congestive) heart failure (2) CO2 retention (3) BORIS (acute kidney injury) (4) Shock liver Assessment & Plan: Hypotensive septic acute elevation in LFTs AST ALT thousands alk phos elevated. Likely shock from hypotension and acute episode. Labs trending down. IV fluid hydration. No acute intervention. Hold on imaging. Line reviewed. No bleeding noted. All 3 ports functional. Chest x-ray reviewed. Drop in hemoglobin unlikely related to line. Will monitor. Trend labs. Transfuse PRN. And are improvement in position of previously malpositioned endotracheal tube, tip now projecting 1-2 cm above the garrett. Interim placement of an carlos enrique gastric tube, tip of which projects beyond the edge of the image, presumably well within the stomach. Interim placement of a left subclavian central venous catheter, tip of which projects at the level of the innominate venous confluence. No pneumothorax. B ilateral infiltrates are again demonstrated, unchanged. Impression: Improved and now satisfactory position of endotracheal tube Interim left subclavian central venous catheter placement, no radiographically evident complication Interim orogastric intubation, apparently satisfactory Unchanged bilateral infiltrates (5) Atrial fibrillation (6) Diabetes mellitus (7) CHF (congestive heart failure) (8) Hypothyroidism (9) Chronic respiratory failure Assessment & Plan: Intubated intensive care unit weaning vent. ET tube in place. Chest x-ray reviewed. (10) History of hypertension (11) 2019 novel coronavirus detected Assessment & Plan: COVID positive as per ID and pulmonology appreciate input and care. Continue vent support wean as tolerated. Satinder Olivera Jan 12, 2020 13:31
--- NOTE | 2020-01-12 13:51 | Diagnostic Imaging Report ---
Indication: Dyspnea Technique: One view of the chest Comparison: 01/11/2020 Findings: Extensive bilateral infiltrates are again demonstrated. This appears minimally improved in the right upper lobe, unchanged elsewhere. Stable satisfactory positions of endotracheal and orogastric tubes, left subclavian central venous catheter. The heart remains enlarged. Impression: Slightly improved right upper lobe infiltrates. 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
--- NOTE | 2020-01-12 15:00 | NUR ---
NURSE NOTES: Second unit PRBC started at this time. Temp 98.7, HR: 72, B/P: 143/56
--- NOTE | 2020-01-12 15:30 | NUR ---
NURSE NOTES: 15 minutes post start of blood transfusion. Temp 98.6, HR 71, B/P 146/55. Pt tolerating well.
--- NOTE | 2020-01-12 15:37 | Diagnostic Imaging Report ---
Indication: Dyspnea, respiratory distress, lower extremity edema Technique: Grayscale and duplex images of the bilateral lower extremity veins Comparison: None Findings: Bilaterally, grayscale and duplex images demonstrate no evidence of intraluminal thrombus. Normal phasic Doppler waveforms, demonstrating normal augmentation response and no evidence of valvular insufficiency. Greater saphenous vein(s) and tibial veins are patent. Normal compressibility. Impression: Negative for evidence of lower extremity deep venous thrombosis bilaterally
--- NOTE | 2020-01-12 15:38 | Diagnostic Imaging Report ---
Indication: Abnormal renal function tests Technique: Grayscale and duplex images of the kidneys, retroperitoneum, and bladder were obtained. Comparison: none Findings: Right kidney measures 10.1 cm in length. Left kidney measures 9.6 cm in length. Both kidneys demonstrate normal echogenicity. No hydronephrosis. Right kidney demonstrates a 3.5 cm cyst. Normal inferior vena cava. Bladder is not visualized, probably empty. Impression: Negative for hydronephrosis Incidental finding right renal cyst.
--- NOTE | 2020-01-12 16:34 | Nephrology Progress Note ---
Assessment/Plan Problem List: (1) BORIS (acute kidney injury) (2) 2019 novel coronavirus detected (3) Hypothyroidism (4) Diabetes mellitus (5) Atrial fibrillation (6) Shock liver Assessment 85-year-old female admitted 5 days ago, at the time serum creatinine was 0.9 and today the serum creatinine is 1.4, most likely BORIS Hypernatremia secondary to free water deficit Prerenal azotemia COVID-19 virus detected Acute on chronic systolic congestive heart failure Atrial fibrillation Diabetes mellitus Hypothyroidism Hypertension Acute on chronic respiratory failure Plan January 11: Labs reviewed. Serum creatinine higher. Hemoglobin lower. Transfusion 2 units packed RBCs today. Continue to monitor renal parameters. Avoid nephrotoxic's. January 10: Labs reviewed. Serum creatinine 2.5. Liver enzymes are lowering. Remains full code. Remains intubated. Electrolyte abnormalities addressed. Continue per consultants. January 09: Lab reviewed. Serum creatinine lower at 2.6. Liver enzymes are lowering. Patient remains full code and remains intubated. Continue current management. Continue to follow renal parameters. Continue per consultants. Start Cardizem 30 mg every 8 hours via NG tube for elevated blood pressure January 08: Lab reviewed. Serum creatinine 2.8. LFTs improving. Remains intubated. Remains full code. Continue per consultants. Continue to monitor renal parameters. Avoid nephrotoxic's as possible. January 07: Labs reviewed. Serum creatinine robby to 2.9. Liver enzymes are improving. Patient off pressors. Patient full code. Patient intubated on ventilator. Continue to monitor renal parameters. IV fluid changed to normal saline. Continue per consultants. Anemia work-up initiated, iron panel B12 and folate level ordered. January 06: Labs reviewed. Serum creatinine up to 2.6. Medications reviewed. Continue to follow renal parameters and electrolytes. Continue to monitor liver enzymes. Allopurinol for high uric acid given. Discussed with RN. January 05: Blood pressure stable off pressors. Continue IV fluids. Monitor renal parameters. Monitor liver function tests. Hold oral Synthroid at this time. Continue treatment for sepsis and COVID-19 infection IV fluids Keep the blood pressure over 100 systolic Monitor renal parameters and electrolytes Monitor liver function tests Avoid nephrotoxic's as possible Urine studies Digoxin level Thyroid function tests Per orders Subjective ROS Limited/Unobtainable: Yes Objective Objective Last 24 Hour Vital Signs Date Time Temp Pulse Resp B/P (MAP) Pulse Ox O2 Delivery O2 Flow Rate FiO2 9/30/20 16:00 98.6 70 23 133/45 (74) 98 01/12/20 16:00 80 01/12/20 16:00 Mechanical Ventilator Mechanical Ventilator 01/12/20 16:00 65 01/12/20 15:09 72 19 143/56 (85) 97 01/12/20 15:00 68 18 140/57 (84) 97 01/12/20 14:00 69 19 134/53 (80) 98 01/12/20 13:00 70 20 138/51 (80) 99 01/12/20 12:00 80 01/12/20 12:00 99.1 73 20 144/51 (82) 97 01/12/20 12:00 Mechanical Ventilator Mechanical Ventilator 01/12/20 12:00 80 01/12/20 11:29 78 20 80 01/12/20 11:00 79 23 147/49 (81) 95 01/12/20 10:00 81 22 145/51 (82) 96 01/12/20 09:00 80 20 148/52 (84) 97 01/12/20 08:00 75 01/12/20 08:00 Mechanical Ventilator Mechanical Ventilator 01/12/20 08:00 80 01/12/20 08:00 99.5 77 23 142/53 (82) 96 01/12/20 07:49 75 20 80 01/12/20 07:00 77 24 139/56 (83) 96 01/12/20 06:00 79 23 134/46 (75) 95 01/12/20 05:00 80 24 141/46 (77) 96 01/12/20 04:00 78 01/12/20 04:00 99.1 78 23 137/51 (79) 96 01/12/20 04:00 Mechanical Ventilator Mechanical Ventilator 01/12/20 04:00 80 01/12/20 03:00 77 23 140/49 (79) 95 01/12/20 02:40 72 22 80 01/12/20 02:00 75 23 136/50 (78) 96 01/12/20 01:00 76 23 136/46 (76) 95 01/12/20 00:00 Mechanical Ventilator Mechanical Ventilator 01/12/20 00:00 99.6 79 25 125/48 (73) 94 01/12/20 00:00 80 01/12/20 00:00 81 01/11/20 23:00 84 27 129/50 (76) 97 01/11/20 22:39 75 27 80 01/11/20 22:00 81 27 131/49 (76) 93 01/11/20 21:00 85 28 131/49 (76) 93 01/11/20 20:00 Mechanical Ventilator Mechanical Ventilator 01/11/20 20:00 80 01/11/20 20:00 87 01/11/20 20:00 99.7 83 27 137/62 (87) 91 01/11/20 19:00 85 27 80 01/11/20 19:00 81 26 134/44 (74) 93 01/11/20 18:30 81 17 134/57 (82) 97 01/11/20 18:00 81 24 119/56 (77) 96 01/11/20 17:30 82 23 124/47 (72) 96 01/11/20 17:00 83 23 126/50 (75) 96 Intake and Output 01/11/20 01/12/20 18:59 06:59 Intake Total 2373.90658 ml 1718.39194 ml Output Total 360 ml 160 ml Balance 2013.24862 ml 1558.75716 ml Free Water 40 ml 15 ml IV Total 1838.65703 ml 1538.10026 ml Tube Feeding 495 ml 165 ml Output Urine Total 360 ml 160 ml # Bowel Movements 1 Laboratory Tests 01/11/20 18:22: POC Whole Blood Glucose 233H 01/12/20 00:01: POC Whole Blood Glucose [Pending] 01/12/20 03:55: White Blood Count 21.5H, Red Blood Count 2.93L, Hemoglobin 7.5L, Hematocrit 24.6L, Mean Corpuscular Volume 84, Mean Corpuscular Hemoglobin 25.7L, Mean Corpuscular Hemoglobin Concent 30.6L, Red Cell Distribution Width 17.9H, Platelet Count 225, Mean Platelet Volume 6.7, Neutrophils (%) (Auto) , Lymphocytes (%) (Auto) , Monocytes (%) (Auto) , Eosinophils (%) (Auto) , Basophils (%) (Auto) , Differential Total Cells Counted 100, Neutrophils % (Manual) 85H, Lymphocytes % (Manual) 1L, Monocytes % (Manual) 5, Eosinophils % (Manual) 0, Basophils % (Manual) 0, Metamyelocytes % 1H, Myelocytes % 2H, Band Neutrophils 6, Platelet Estimate Adequate, Platelet Morphology Normal, Hypochromasia 1+, Sodium Level 139, Potassium Level 4.6, Chloride Level 105, Carbon Dioxide Level 19L, Anion Gap 15, Blood Urea Nitrogen 99H, Creatinine 3.0H , Estimat Glomerular Filtration Rate 14.8, Glucose Level 204H, Calcium Level 8.6, Phosphorus Level 5.1H, Magnesium Level 2.4, Total Bilirubin 0.4, Aspartate Amino Transf (AST/SGOT) 43H, Alanine Aminotransferase (ALT/SGPT) 162H, Alkaline Phosphatase 92, Total Protein 5.5L, Albumin 2.0L, Globulin 3.5, Albumin/Globulin Ratio 0.6L 01/12/20 06:14: POC Whole Blood Glucose [Pending] 01/12/20 08:51: Arterial Blood pH 7.291L, Arterial Blood Partial Pressure CO2 35.6, Arterial Blood Partial Pressure O2 89.2, Arterial Blood HCO3 16.8*L, Arterial Blood Oxygen Saturation 96.4, Arterial Blood Base Excess -9.0L, Chester Test Positive 01/12/20 11:53: POC Whole Blood Glucose 209H Height (Feet): 5 Height (Inches): 2.00 Weight (Pounds): 155 General Appearance: no apparent distress EENT: other - Intubated on ventilator Cardiovascular: normal rate Respiratory/Chest: decreased breath sounds Abdomen: distended Naun Mandel MD Jan 12, 2020 16:34
--- NOTE | 2020-01-12 17:00 | NUR ---
NURSE NOTES: Blood transfusion completed at this time. Temp 98.6, HR 70, B/P: 148/61. No adverse reaction noted.
--- NOTE | 2020-01-12 17:31 | NUR ---
NURSE NOTES: Left subclavian TLC dressing changed. Pt cleaned and linens changed. Pt turned and repositioned. Pt noted to have an old scab of blood on the left corner of her mouth. Oral care done.
--- NOTE | 2020-01-12 17:54 | Cardiology Progress Note ---
Assessment/Plan Assessment/Plan paf now persistent afib pneumonia pulm htn 90's copd dm acute covid 19 infection diastolic failure cardiopulm arrest (pt was found off bipap) respiratory acidosis ARF abn lft probable shock liver imporved abn trop likey realted to cpr anoxic encephalopathy cxr personally reviewed has bilateral pulm infiltrates s/p remdezivir on empiric abx and steroids personally reviewed tele:afib on iv dilt hr controlled dig level ok will intermittently dose dig echo noted form a few days ago supportive care at this time not need pressror but diana be observed for need vent support heparin for dvt ppx in the settign of unstable renal function post arf remains critically ill and at risk of dying d/w sports journalist directives noted poa avaiaLBE Subjective ROS Limited/Unobtainable: Yes Subjective remain on the vent not responsive per rn Objective Last 24 Hour Vital Signs Date Time Temp Pulse Resp B/P (MAP) Pulse Ox O2 Delivery O2 Flow Rate FiO2 01/12/20 17:30 69 20 150/58 (88) 96 01/12/20 17:00 71 21 148/61 (90) 97 01/12/20 16:00 98.6 70 23 133/45 (74) 98 01/12/20 16:00 80 01/12/20 16:00 Mechanical Ventilator Mechanical Ventilator 01/12/20 16:00 65 01/12/20 15:28 82 23 80 01/12/20 15:09 72 19 143/56 (85) 97 01/12/20 15:00 68 18 140/57 (84) 97 01/12/20 14:00 69 19 134/53 (80) 98 01/12/20 13:00 70 20 138/51 (80) 99 01/12/20 12:00 80 01/12/20 12:00 99.1 73 20 144/51 (82) 97 01/12/20 12:00 Mechanical Ventilator Mechanical Ventilator 01/12/20 12:00 80 01/12/20 11:29 78 20 80 01/12/20 11:00 79 23 147/49 (81) 95 01/12/20 10:00 81 22 145/51 (82) 96 01/12/20 09:00 80 20 148/52 (84) 97 01/12/20 08:00 75 01/12/20 08:00 Mechanical Ventilator Mechanical Ventilator 01/12/20 08:00 80 01/12/20 08:00 99.5 77 23 142/53 (82) 96 01/12/20 07:49 75 20 80 01/12/20 07:00 77 24 139/56 (83) 96 01/12/20 06:00 79 23 134/46 (75) 95 01/12/20 05:00 80 24 141/46 (77) 96 01/12/20 04:00 78 01/12/20 04:00 99.1 78 23 137/51 (79) 96 01/12/20 04:00 Mechanical Ventilator Mechanical Ventilator 01/12/20 04:00 80 01/12/20 03:00 77 23 140/49 (79) 95 01/12/20 02:40 72 22 80 01/12/20 02:00 75 23 136/50 (78) 96 01/12/20 01:00 76 23 136/46 (76) 95 01/12/20 00:00 Mechanical Ventilator Mechanical Ventilator 01/12/20 00:00 99.6 79 25 125/48 (73) 94 01/12/20 00:00 80 01/12/20 00:00 81 01/11/20 23:00 84 27 129/50 (76) 97 01/11/20 22:39 75 27 80 01/11/20 22:00 81 27 131/49 (76) 93 01/11/20 21:00 85 28 131/49 (76) 93 01/11/20 20:00 Mechanical Ventilator Mechanical Ventilator 01/11/20 20:00 80 01/11/20 20:00 87 01/11/20 20:00 99.7 83 27 137/62 (87) 91 01/11/20 19:00 85 27 80 01/11/20 19:00 81 26 134/44 (74) 93 01/11/20 18:30 81 17 134/57 (82) 97 01/11/20 18:00 81 24 119/56 (77) 96 General Appearance: no apparent distress, on vent, patient on isolation Extremities: moderate edema Intake and Output 01/11/20 01/12/20 19:00 07:00 Intake Total 2520.01000 ml 1659.93829 ml Output Total 390 ml 135 ml Balance 2130.98269 ml 1524.54142 ml Free Water 40 ml 15 ml IV Total 1930.54464 ml 1534.88543 ml Tube Feeding 550 ml 110 ml Output Urine Total 390 ml 135 ml # Bowel Movements 1 Laboratory Tests Test 01/11/20 18:22 01/12/20 00:01 01/12/20 03:55 01/12/20 06:14 POC Whole Blood Glucose 233 MG/DL (74-106) H Pending Pending White Blood Count 21.5 K/UL (4.8-10.8) H Red Blood Count 2.93 M/UL (4.20-5.40) L Hemoglobin 7.5 G/DL (12.0-16.0) L Hematocrit 24.6 % (37.0-47.0) L Mean Corpuscular Volume 84 FL (80-99) Mean Corpuscular Hemoglobin 25.7 PG (27.0-31.0) L Mean Corpuscular Hemoglobin Concent 30.6 G/DL (32.0-36.0) L Red Cell Distribution Width 17.9 % (11.6-14.8) H Platelet Count 225 K/UL (150-450) Mean Platelet Volume 6.7 FL (6.5-10.1) Neutrophils (%) (Auto) % (45.0-75.0) Lymphocytes (%) (Auto) % (20.0-45.0) Monocytes (%) (Auto) % (1.0-10.0) Eosinophils (%) (Auto) % (0.0-3.0) Basophils (%) (Auto) % (0.0-2.0) Differential Total Cells Counted 100 Neutrophils % (Manual) 85 % (45-75) H Lymphocytes % (Manual) 1 % (20-45) L Monocytes % (Manual) 5 % (1-10) Eosinophils % (Manual) 0 % (0-3) Basophils % (Manual) 0 % (0-2) Metamyelocytes % 1 % (0-0) H Myelocytes % 2 % (0-0) H Band Neutrophils 6 % (0-8) Platelet Estimate Adequate Platelet Morphology Normal Hypochromasia 1+ Sodium Level 139 MMOL/L (136-145) Potassium Level 4.6 MMOL/L (3.5-5.1) Chloride Level 105 MMOL/L (98-107) Carbon Dioxide Level 19 MMOL/L (21-32) L Anion Gap 15 mmol/L (5-15) Blood Urea Nitrogen 99 mg/dL (7-18) H Creatinine 3.0 MG/DL (0.55-1.30) H Estimat Glomerular Filtration Rate 14.8 mL/min (>60) Glucose Level 204 MG/DL (74-106) H Calcium Level 8.6 MG/DL (8.5-10.1) Phosphorus Level 5.1 MG/DL (2.5-4.9) H Magnesium Level 2.4 MG/DL (1.8-2.4) Total Bilirubin 0.4 MG/DL (0.2-1.0) Aspartate Amino Transf (AST/SGOT) 43 U/L (15-37) H Alanine Aminotransferase (ALT/SGPT) 162 U/L (12-78) H Alkaline Phosphatase 92 U/L (46-116) Total Protein 5.5 G/DL (6.4-8.2) L Albumin 2.0 G/DL (3.4-5.0) L Globulin 3.5 g/dL Albumin/Globulin Ratio 0.6 (1.0-2.7) L Test 01/12/20 08:51 01/12/20 11:53 Arterial Blood pH 7.291 (7.350-7.450) Arterial Blood Partial Pressure CO2 35.6 mmHg (35.0-45.0) Arterial Blood Partial Pressure O2 89.2 mmHg (75.0-100.0) Arterial Blood HCO3 16.8 mmol/L (22.0-26.0) *L Arterial Blood Oxygen Saturation 96.4 % (95-100) Arterial Blood Base Excess -9.0 (-2-2) L Chester Test Positive POC Whole Blood Glucose 209 MG/DL (74-106) H Objective pt with covid exam deferred remain on the vent no communicative per rn sig secretion purulent not on pressor but is on iv dilt ETT at 23cm lip on ventilator AC 16 TV 600 FiO2 80% PEEP 5. BP 134/46 HR 79 Afib on monitor. Left Subclavian TLC running Cardizem @ 10ml/hr, NS @100ml/hr asymptomatic. OGT running Vital @30ml/hr. Kelsey draining scant yellow urine with sediment. patient with sacral redness covered with Optifoam, bilateral upper extremity weeping edema and ecchymosis, bilateral lower extremity edema. Reginaldo Gaming MD Jan 12, 2020 17:54
--- NOTE | 2020-01-12 19:15 | NUR ---
NURSE HAND-OFF REPORT: Latest Vital Signs: Temperature 98.6 , Pulse 73 , B/P 150 /56 , Respiratory Rate 22 , O2 SAT 95 , Mechanical Ventilator, FiO2 80%. Vital Sign Comment: EKG Rhythm: Atrial Fibrillation Rhythm change?: N MD Notified?: Response: Latest Shaw Fall Score: 70 Fall Risk: High Risk Safety Measures: Call light Within Reach, Bed Alarm Zone 1, Side Rails Side Rails x3, Bed position Low and Locked. Fall Precautions: Door Sign Report given to ALEX Parker.
--- NOTE | 2020-01-12 19:30 | NUR ---
NURSE NOTES: Received pt, a Covid +, obtunded, orally intubated on ac mode Afib on the monitor, on the 80s-100s , on cardizem drip at 10mg/hr with maintainance ivF ns at 100ml/hr. ALL ivf been infusing to pts central line left subclavian with newly drsg dry and intact pt is oliguric. mo to gravity with minimal amt of of yellowish urine, mds are aware. pt with 3+ edema to all extremities and wheeping with fluids edema both arms. Pt has sacral DTI and ecchymosis all over pts body. On P 200 mattress. Will continue to monitor.
[2020-01-12] MEDS: Dyna-Hex 2% Top Sol 2oz TOPIC SCH (20:18)
--- NOTE | 2020-01-12 22:00 | NUR ---
NURSE NOTES: pt has persistent soft to watery stool, cleaned up pt.
[2020-01-13] VITALS (31 sets, daily range): BP systolic 135–161; BP diastolic 41–65
--- NOTE | 2020-01-13 | NUR ---
NURSE NOTES: Suctioned tn pinkish frothy secretions lg in amt. oral care done. HOB kept elevated. watch for any resp. distress.
[2020-01-13] MEDS: dilTIAZem Premix 125mg/125ml 125 ML IVPB SCH ×3 (00:02→21:22)
[2020-01-13] MEDS: NovoLOG Insulin Flexpen SUBQ SCH ×4 (00:07→18:00)
--- NOTE | 2020-01-13 02:00 | NUR ---
NURSE NOTES: Turned to sides for comfort and to avoid further skin breakdown.
--- NOTE | 2020-01-13 03:00 | NUR ---
NURSE NOTES: Sent stool for cdiff
[2020-01-13 04:55] LABS: HEMATOCRIT 31.6 % (37.0-47.0); HEMOGLOBIN 9.8 G/DL (12.0-16.0); MEAN CORPUSCULAR VOLUME 83 FL (80-99); PLATELET COUNT 255 K/UL (150-450); RED BLOOD COUNT 3.82 M/UL (4.20-5.40); RED CELL DISTRIBUTION WIDTH 16.6 % (11.6-14.8)
--- NOTE | 2020-01-13 05:00 | NUR ---
NURSE NOTES: complete bed bath with bed changed done.
[2020-01-13 05:25] LABS: WHITE BLOOD COUNT 30.1 K/UL (4.8-10.8)
[2020-01-13 05:30] LABS: ALBUMIN/GLOBULIN RATIO 0.5 (1.0-2.7); BILIRUBIN,TOTAL 0.5 MG/DL (0.2-1.0); CALCIUM 8.7 MG/DL (8.5-10.1); CREATININE 3.2 MG/DL (0.55-1.30); PHOSPHORUS 6.1 MG/DL (2.5-4.9); POTASSIUM 4.8 MMOL/L (3.5-5.1)
--- NOTE | 2020-01-13 06:00 | NUR ---
NURSE NOTES: neuro unchanged, No resp distress noted.
[2020-01-13] MEDS: Metoclopramide 10mg/2ml Inj IVP PRN (06:16)
--- NOTE | 2020-01-13 07:19 | NUR ---
NURSE HAND-OFF REPORT: Latest Vital Signs: Temperature 98.8 , Pulse 92 , B/P 153 /59 , Respiratory Rate 22 , O2 SAT 90 , Mechanical Ventilator, O2 Flow Rate 10.0 . Vital Sign Comment: EKG Rhythm: Atrial Fibrillation Rhythm change?: N Notified?: Eliezer Gaming MD Response: No New Orders Received Latest Shaw Fall Score: 70 Fall Risk: High Risk Safety Measures: Call light Within Reach, Bed Alarm Zone 1, Side Rails Side Rails x3, Bed position Low and Locked. Fall Precautions: Door Sign Report given to .
--- NOTE | 2020-01-13 07:27 | NUR ---
RD ASSESSMENT & RECOMMENDATIONS SEE CARE ACTIVITY FOR COMPLETE ASSESSMENT DAILY ESTIMATED NEEDS: Needs based on Critical care 54kg abw 22-30 kcals/kg 0475-4036 total kcals 1.25-2 g protein/kg 68-108 g total protein 20-25 mL/kg 2735-1368 total fluid mLs NUTRITION DIAGNOSIS: Swallowing difficulty r/t resp status as evidenced by pt adm w/ covid 19 ++, on bipap, now s/p code blue, intubated, on OGT feeds. CURRENT TF:VITAL AF 1.2 @ 55ml/hr x22 hrs ENTERAL NUTRITION RECOMMENDATIONS: VITAL AF 1.2 @ 55ml/hr x 22 hrs to provide 1210, 1452kcal, 91g prot, 981ml free water * Maintain current TF * Hold 1 hr before and after Synthroid * HOB over 30 degrees/ water flush per MD If renal fxn cont to worsen (creat 3.2 w/ phos 6.1 on 01/12) -> rec TF change to Nepro @ goal rate of 35ml/hr x 22 hrs to provide 770ml, 1386kcal, 62g prot (1.15g/kg), 560ml free water ADDITIONAL RECOMMENDATIONS: 1) Maintain calibrated bed scale wts daily 2) Monitor renal fxn and lytes, need for renal TF (creat worsening 3.2, phos 6.1) 3) Skin integrity: TF @ goal provides 100% RDI Odell BID 4) Monitor BGs, need for additional hypoglycemics
--- NOTE | 2020-01-13 07:37 | NUR ---
CASE MANAGEMENT: REVIEW SI: HYPOXIA . COVID-19 . PNA . A-FIB . REMAIN ON THE VENT NOT RESPONSIVE T 99.0 HR 78 RR 23 BP 153/59 SAT 90% MECH VENT FIO2 80 WBC 30.1 H/H 9.8/31.6 BUN 95 CR 3.2 IS: PROTONIX IV Q112HR NS IVF @ 100ML/HR ZYVOX IV Q12HR MEROPENEM IV Q24HR CARDIZEM IV Q24HR ICU STATUS DCP: PATIENT IS FROM [facility]
--- NOTE | 2020-01-13 08:00 | NUR ---
NURSE NOTES: Pt was assessed after receiving change of shift report from Elena JOHNSON. Pt is orally intubated, eyes closed, does not respond to voice or touch, only withdraws to deep painful stimuli, hypoactive gag reflex. ETT 7.5 at 23cm lipline, with vent settings AC 16, VT600, Peep 5.0, FIO2 85%, at 100% O2Sat. AFib on color television console monitor, HR is fluctuating from 85-104 bmp while maintained on Cardizem drip currently at 10mg/hr, infusing via left subclavian TLC. IV fluid NS is also infusing at 100ml/hour. Temp 99.8F axillary. Bilateral extremities edema, with upper extremities weeping. OGT with feeding Vital AF, goal rate of 55ml/hour; was off after 0630 Synthroid administration; feeding is now resumed. Residual 60ml. Mo catheter is present; pt is olyguric, mo draining 0-10ml dark yellow/cloudy urine with moderate sediments. Rectal tube is in place, draining liquid brown stool. Pt has skin alterations, sacral DTI covered with optifoam dressing, on pressure release mattress. HOB at 30 degrees, bed locked, in lowest position, three side rails up. Will continue to monitor pt and follow plan of care.
[2020-01-13] MEDS: Pantoprazole Inj IV SCH ×2 (08:56→20:05)
[2020-01-13] MEDS: Heparin 5000 units/ml inj SUBQ SCH ×3 (08:58→21:00)
--- NOTE | 2020-01-13 09:29 | Nephrology Progress Note ---
Assessment/Plan Problem List: (1) BORIS (acute kidney injury) (2) 2019 novel coronavirus detected (3) Hypothyroidism (4) Diabetes mellitus (5) Atrial fibrillation (6) Shock liver Assessment 85-year-old female admitted 5 days ago, at the time serum creatinine was 0.9 and today the serum creatinine is 1.4, most likely BORIS Hypernatremia secondary to free water deficit Prerenal azotemia COVID-19 virus detected Acute on chronic systolic congestive heart failure Atrial fibrillation Diabetes mellitus Hypothyroidism Hypertension Acute on chronic respiratory failure Plan January 12: Serum creatinine rising. Patient was transfused. Remains full code. Remains intubated on ventilator. Will get consent for placement of non- tunneled dialysis catheter. Further worsening renal parameters may lead to the need for dialysis treatment. Per orders. January 11: Labs reviewed. Serum creatinine higher. Hemoglobin lower. Transfusion 2 units packed RBCs today. Continue to monitor renal parameters. Avoid nephrotoxic's. January 10: Labs reviewed. Serum creatinine 2.5. Liver enzymes are lowering. Remains full code. Remains intubated. Electrolyte abnormalities addressed. Continue per consultants. January 09: Lab reviewed. Serum creatinine lower at 2.6. Liver enzymes are lowering. Patient remains full code and remains intubated. Continue current management. Continue to follow renal parameters. Continue per consultants. Start Cardizem 30 mg every 8 hours via NG tube for elevated blood pressure January 08: Lab reviewed. Serum creatinine 2.8. LFTs improving. Remains intubated. Remains full code. Continue per consultants. Continue to monitor renal parameters. Avoid nephrotoxic's as possible. January 07: Labs reviewed. Serum creatinine robby to 2.9. Liver enzymes are improving. Patient off pressors. Patient full code. Patient intubated on ventilator. Continue to monitor renal parameters. IV fluid changed to normal saline. Continue per consultants. Anemia work-up initiated, iron panel B12 and folate level ordered. January 06: Labs reviewed. Serum creatinine up to 2.6. Medications reviewed. Continue to follow renal parameters and electrolytes. Continue to monitor liver enzymes. Allopurinol for high uric acid given. Discussed with RN. January 05: Blood pressure stable off pressors. Continue IV fluids. Monitor renal parameters. Monitor liver function tests. Hold oral Synthroid at this time. Continue treatment for sepsis and COVID-19 infection IV fluids Keep the blood pressure over 100 systolic Monitor renal parameters and electrolytes Monitor liver function tests Avoid nephrotoxic's as possible Urine studies Digoxin level Thyroid function tests Per orders Subjective ROS Limited/Unobtainable: Yes Objective Objective Last 24 Hour Vital Signs Date Time Temp Pulse Resp B/P (MAP) Pulse Ox O2 Delivery O2 Flow Rate FiO2 01/13/20 07:46 90 26 80 01/13/20 06:30 92 22 153/59 (90) 90 01/13/20 06:00 90 27 148/55 (86) 91 01/13/20 05:30 86 25 138/51 (80) 91 01/13/20 05:00 82 25 151/46 (81) 91 01/13/20 04:00 80 01/13/20 04:00 Mechanical Ventilator Mechanical Ventilator 01/13/20 04:00 80 01/13/20 04:00 98.8 84 24 145/65 (91) 94 01/13/20 03:00 78 21 137/60 (85) 95 01/13/20 02:34 78 25 80 01/13/20 02:00 80 22 139/55 (83) 95 01/13/20 01:00 79 24 135/54 (81) 94 01/13/20 00:00 80 01/13/20 00:00 99.0 78 23 141/49 (79) 94 01/13/20 00:00 66 01/13/20 00:00 Mechanical Ventilator Mechanical Ventilator 01/12/20 23:00 80 24 135/84 (101) 93 01/12/20 22:40 81 24 80 01/12/20 22:00 76 24 146/53 (84) 93 01/12/20 21:00 77 24 157/63 (94) 94 01/12/20 20:00 98.2 77 24 155/60 (91) 94 01/12/20 20:00 Mechanical Ventilator Mechanical Ventilator 01/12/20 20:00 98.2 72 21 148/57 (87) 96 01/12/20 19:25 81 23 80 01/12/20 19:00 73 22 150/56 (87) 95 01/12/20 18:00 72 21 148/57 (87) 96 01/12/20 17:30 69 20 150/58 (88) 96 01/12/20 17:00 71 21 148/61 (90) 97 01/12/20 16:00 98.6 70 23 133/45 (74) 98 01/12/20 16:00 80 01/12/20 16:00 Mechanical Ventilator Mechanical Ventilator 01/12/20 16:00 65 01/12/20 15:28 82 23 80 01/12/20 15:09 72 19 143/56 (85) 97 01/12/20 15:00 68 18 140/57 (84) 97 01/12/20 14:00 69 19 134/53 (80) 98 01/12/20 13:00 70 20 138/51 (80) 99 01/12/20 12:00 80 01/12/20 12:00 99.1 73 20 144/51 (82) 97 01/12/20 12:00 Mechanical Ventilator Mechanical Ventilator 01/12/20 12:00 80 01/12/20 11:29 78 20 80 01/12/20 11:00 79 23 147/49 (81) 95 01/12/20 10:00 81 22 145/51 (82) 96 Intake and Output 01/12/20 01/13/20 19:00 07:00 Intake Total 2719.167 ml 1910 ml Output Total 120 ml 142 ml Balance 2599.167 ml 1768 ml Free Water 50 ml IV Total 1629.167 ml 1310 ml Tube Feeding 510 ml 550 ml Blood Product 500 ml Other 80 ml Output Urine Total 120 ml 142 ml # Bowel Movements 2 2 Laboratory Tests 01/12/20 11:53: POC Whole Blood Glucose 209H 01/12/20 23:59: POC Whole Blood Glucose [Pending] 01/13/20 04:05: White Blood Count 30.1*H, Red Blood Count 3.82L, Hemoglobin 9.8#L, Hematocrit 31.6L, Mean Corpuscular Volume 83, Mean Corpuscular Hemoglobin 25.7L, Mean Corpuscular Hemoglobin Concent 31.0L, Red Cell Distribution Width 16.6H, Platelet Count 255, Mean Platelet Volume 6.0L, Neutrophils (%) (Auto) , Lymphocytes (%) (Auto) , Monocytes (%) (Auto) , Eosinophils (%) (Auto) , Basophils (%) (Auto) , Differential Total Cells Counted 100, Neutrophils % (Manual) 93H, Lymphocytes % (Manual) 1L, Monocytes % (Manual) 6, Eosinophils % (Manual) 0, Basophils % (Manual) 0, Band Neutrophils 0, Platelet Estimate Adequate, Platelet Morphology Normal, Hypochromasia 2+, Anisocytosis 1+, Sodium Level 137, Potassium Level 4.8, Chloride Level 104, Carbon Dioxide Level 17L, Anion Gap 16H, Blood Urea Nitrogen 95H, Creatinine 3.2H, Estimat Glomerular Filtration Rate 13.8, Glucose Level 150H, Calcium Level 8.7, Phosphorus Level 6.1H, Magnesium Level 2.2, Total Bilirubin 0.5, Aspartate Amino Transf (A ST/SGOT) 41H, Alanine Aminotransferase (ALT/SGPT) 135H, Alkaline Phosphatase 97, Total Protein 5.7L, Albumin 2.0L, Globulin 3.7, Albumin/Globulin Ratio 0.5L 01/13/20 04:16: POC Whole Blood Glucose 155H Height (Feet): 5 Height (Inches): 2.00 Weight (Pounds): 155 General Appearance: no apparent distress, lethargic EENT: other - Intubated on ventilator Cardiovascular: tachycardia Respiratory/Chest: decreased breath sounds Abdomen: soft Naun Mandel MD Jan 13, 2020 09:29
--- NOTE | 2020-01-13 10:00 | NUR ---
NURSE NOTES: AM meds were administered. Pt has moderate amount of frothy pinkish oral secretions. Red scab noted on left corner of the lips, which has slight bleeding from the site. Oral care was done, and site wiped with wet-wipes.
--- NOTE | 2020-01-13 10:23 | Pulmonolgy Critical Care Note ---
Critical Care - Asmt/Plan Problems: (1) Acute respiratory failure due to COVID-19 (2) Acute on chronic systolic (congestive) heart failure (3) Atrial fibrillation (4) Diabetes mellitus (5) CHF (congestive heart failure) (6) Hypothyroidism (7) Chronic respiratory failure (8) History of hypertension Respiratory: monitor respiratory rate, adjust FIO2, CXR Cardiac: continue pressors, continue to monitor HR/BP Renal: F/U I&O, keep IV fluid, check electrolytes Infectious Disease: check cultures, continue antibiotics Gastrointestinal: continue feedings/current rate Endocrine: check HgA1C Hematologic: monitor H/H, transfuse if hgb<8.5 Neurologic: PRN Morphine, keep patient comfortable Prophylaxis: Protonix Time Spent (Minutes): 40 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: shake maker, cardio, renal Discussed with: nurses, consultants, 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 - Objective Last 24 Hour Vital Signs Date Time Temp Pulse Resp B/P (MAP) Pulse Ox O2 Delivery O2 Flow Rate FiO2 01/13/20 07:46 90 26 80 01/13/20 06:30 92 22 153/59 (90) 90 01/13/20 06:00 90 27 148/55 (86) 91 01/13/20 05:30 86 25 138/51 (80) 91 01/13/20 05:00 82 25 151/46 (81) 91 01/13/20 04:00 80 01/13/20 04:00 Mechanical Ventilator Mechanical Ventilator 01/13/20 04:00 80 01/13/20 04:00 98.8 84 24 145/65 (91) 94 01/13/20 03:00 78 21 137/60 (85) 95 01/13/20 02:34 78 25 80 01/13/20 02:00 80 22 139/55 (83) 95 01/13/20 01:00 79 24 135/54 (81) 94 01/13/20 00:00 80 01/13/20 00:00 99.0 78 23 141/49 (79) 94 01/13/20 00:00 66 01/13/20 00:00 Mechanical Ventilator Mechanical Ventilator 01/12/20 23:00 80 24 135/84 (101) 93 01/12/20 22:40 81 24 80 01/12/20 22:00 76 24 146/53 (84) 93 01/12/20 21:00 77 24 157/63 (94) 94 01/12/20 20:00 98.2 77 24 155/60 (91) 94 01/12/20 20:00 Mechanical Ventilator Mechanical Ventilator 01/12/20 20:00 98.2 72 21 148/57 (87) 96 01/12/20 19:25 81 23 80 01/12/20 19:00 73 22 150/56 (87) 95 01/12/20 18:00 72 21 148/57 (87) 96 01/12/20 17:30 69 20 150/58 (88) 96 01/12/20 17:00 71 21 148/61 (90) 97 01/12/20 16:00 98.6 70 23 133/45 (74) 98 01/12/20 16:00 80 01/12/20 16:00 Mechanical Ventilator Mechanical Ventilator 01/12/20 16:00 65 01/12/20 15:28 82 23 80 01/12/20 15:09 72 19 143/56 (85) 97 01/12/20 15:00 68 18 140/57 (84) 97 01/12/20 14:00 69 19 134/53 (80) 98 01/12/20 13:00 70 20 138/51 (80) 99 01/12/20 12:00 80 01/12/20 12:00 99.1 73 20 144/51 (82) 97 01/12/20 12:00 Mechanical Ventilator Mechanical Ventilator 01/12/20 12:00 80 01/12/20 11:29 78 20 80 01/12/20 11:00 79 23 147/49 (81) 95 Status: awake Condition: critical HEENT: atraumatic, normocephalic Neck: full ROM Abdomen: feeding tube Extremities: no C/C/E Decubiti: location Accucheck: 155 Critical Care - Subjective ROS Limited/Unobtainable: Yes Condition: critical EKG Rhythm: Sinus Rhythm FI02: 80 Vent Support Breath Rate: 16 Vent Support Mode: AC Vent Tidal Volume: 600 Sputum Amount: Small PEEP: 5.0 PIP: 39 Tube Feeding Amount: 55 I&O: Intake and Output 01/12/20 01/13/20 19:00 07:00 Intake Total 2719.167 ml 1910 ml Output Total 120 ml 142 ml Balance 2599.167 ml 1768 ml Free Water 50 ml IV Total 1629.167 ml 1310 ml Tube Feeding 510 ml 550 ml Blood Product 500 ml Other 80 ml Output Urine Total 120 ml 142 ml # Bowel Movements 2 2 CXR: extensive bilateral infiltrate ET-Tube: 7.5 ET Position: 23 Labs: Laboratory Tests Test 01/12/20 11:53 01/12/20 23:59 01/13/20 04:05 01/13/20 04:16 POC Whole Blood Glucose 209 MG/DL (74-106) H Pending 155 MG/DL (74-106) H White Blood Count 30.1 K/UL (4.8-10.8) *H Red Blood Count 3.82 M/UL (4.20-5.40) L Hemoglobin 9.8 G/DL (12.0-16.0) #L Hematocrit 31.6 % (37.0-47.0) L Mean Corpuscular Volume 83 FL (80-99) Mean Corpuscular Hemoglobin 25.7 PG (27.0-31.0) L Mean Corpuscular Hemoglobin Concent 31.0 G/DL (32.0-36.0) L Red Cell Distribution Width 16.6 % (11.6-14.8) H Platelet Count 255 K/UL (150-450) Mean Platelet Volume 6.0 FL (6.5-10.1) L Neutrophils (%) (Auto) % (45.0-75.0) Lymphocytes (%) (Auto) % (20.0-45.0) Monocytes (%) (Auto) % (1.0-10.0) Eosinophils (%) (Auto) % (0.0-3.0) Basophils (%) (Auto) % (0.0-2.0) Differential Total Cells Counted 100 Neutrophils % (Manual) 93 % (45-75) H Lymphocytes % (Manual) 1 % (20-45) L Monocytes % (Manual) 6 % (1-10) Eosinophils % (Manual) 0 % (0-3) Basophils % (Manual) 0 % (0-2) Band Neutrophils 0 % (0-8) Platelet Estimate Adequate Platelet Morphology Normal Hypochromasia 2+ Anisocytosis 1+ Sodium Level 137 MMOL/L (136-145) Potassium Level 4.8 MMOL/L (3.5-5.1) Chloride Level 104 MMOL/L (98-107) Carbon Dioxide Level 17 MMOL/L (21-32) L Anion Gap 16 mmol/L (5-15) H Blood Urea Nitrogen 95 mg/dL (7-18) H Creatinine 3.2 MG/DL (0.55-1.30) H Estimat Glomerular Filtration Rate 13.8 mL/min (>60) Glucose Level 150 MG/DL (74-106) H Calcium Level 8.7 MG/DL (8.5-10.1) Phosphorus Level 6.1 MG/DL (2.5-4.9) H Magnesium Level 2.2 MG/DL (1.8-2.4) Total Bilirubin 0.5 MG/DL (0.2-1.0) Aspartate Amino Transf (AST/SGOT) 41 U/L (15-37) H Alanine Aminotransferase (ALT/SGPT) 135 U/L (12-78) H Alkaline Phosphatase 97 U/L (46-116) Total Protein 5.7 G/DL (6.4-8.2) L Albumin 2.0 G/DL (3.4-5.0) L Globulin 3.7 g/dL Albumin/Globulin Ratio 0.5 (1.0-2.7) L Ann-Marie Graves MD Jan 13, 2020 10:23
--- NOTE | 2020-01-13 10:36 | Infectious Diseases Prog Note ---
Assessment/Plan Assessment: Asystole arrest Sepsis COVID19 pneumonia Acute hypoxic resp failure sp NRB> Bipap 100% Fio2> VDRF 100% -01/01 CXR: Vascular congestion/developing failure and bilateral patchy infiltrates, slightly worse since prior exam. Small bilateral pleural effusions.Prominent mediastinum likely due to tortuous/ectatic thoracic aorta. -12/31 CXR: Centrally predominant interstitial and airspace opacities, pulmonary edema most likely. Cardiomegaly. Fever; SP No leukocytosis Dm2 COPD HTN former smoker CAD CHF RA GERD hypothyroidism Afib [place] resident ([facility]) Plan: - Continue Meropenem #2 - Cont Linazolid #7 - D/C Zosyn #6 - 01/09/20 SP Remdesivir #5 per [facility] criteria- patient cannot provide consent; Benefits outweigh risks. - 01/07/20 Ceftriaxone #7 - 12/31 SP Cefepime x1, Flagyl x1 -f/u cx -Monitor CBC/CMP, temperatures -ETT/ICU care D/w RN Thank you for consulting [facility]. Will continue to follow along with you. Subjective Allergies: Coded Allergies: DOXYCYCLINE (Verified Allergy, Unknown, 04/04/19) RIFAMPIN (Verified Allergy, Unknown, 04/04/19) Afebrile On Vent 80% O2 WBCs up to 30 CXR 01/12/20 - Slightly improved right upper lobe infiltrates. 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 Objective Last 24 Hour Vital Signs Date Time Temp Pulse Resp B/P (MAP) Pulse Ox O2 Delivery O2 Flow Rate FiO2 01/13/20 07:46 90 26 80 01/13/20 06:30 92 22 153/59 (90) 90 01/13/20 06:00 90 27 148/55 (86) 91 01/13/20 05:30 86 25 138/51 (80) 91 01/13/20 05:00 82 25 151/46 (81) 91 01/13/20 04:00 80 01/13/20 04:00 Mechanical Ventilator Mechanical Ventilator 01/13/20 04:00 80 01/13/20 04:00 98.8 84 24 145/65 (91) 94 01/13/20 03:00 78 21 137/60 (85) 95 01/13/20 02:34 78 25 80 01/13/20 02:00 80 22 139/55 (83) 95 01/13/20 01:00 79 24 135/54 (81) 94 01/13/20 00:00 80 01/13/20 00:00 99.0 78 23 141/49 (79) 94 01/13/20 00:00 66 01/13/20 00:00 Mechanical Ventilator Mechanical Ventilator 01/12/20 23:00 80 24 135/84 (101) 93 01/12/20 22:40 81 24 80 01/12/20 22:00 76 24 146/53 (84) 93 01/12/20 21:00 77 24 157/63 (94) 94 01/12/20 20:00 98.2 77 24 155/60 (91) 94 01/12/20 20:00 Mechanical Ventilator Mechanical Ventilator 01/12/20 20:00 98.2 72 21 148/57 (87) 96 01/12/20 19:25 81 23 80 01/12/20 19:00 73 22 150/56 (87) 95 01/12/20 18:00 72 21 148/57 (87) 96 01/12/20 17:30 69 20 150/58 (88) 96 01/12/20 17:00 71 21 148/61 (90) 97 01/12/20 16:00 98.6 70 23 133/45 (74) 98 01/12/20 16:00 80 01/12/20 16:00 Mechanical Ventilator Mechanical Ventilator 01/12/20 16:00 65 01/12/20 15:28 82 23 80 01/12/20 15:09 72 19 143/56 (85) 97 01/12/20 15:00 68 18 140/57 (84) 97 01/12/20 14:00 69 19 134/53 (80) 98 01/12/20 13:00 70 20 138/51 (80) 99 01/12/20 12:00 80 01/12/20 12:00 99.1 73 20 144/51 (82) 97 01/12/20 12:00 Mechanical Ventilator Mechanical Ventilator 01/12/20 12:00 80 01/12/20 11:29 78 20 80 01/12/20 11:00 79 23 147/49 (81) 95 Height (Feet): 5 Height (Inches): 2.00 Weight (Pounds): 155 GENERAL: On Vent HEENT: NCAT, MMM LUNGS: Equal rise and fall of chest B/L no accessory muscle use ABDOMEN: Soft, nondistended EXTREMITIES: No cyanosis, clubbing, or edema. Laboratory Tests Test 01/12/20 11:53 01/12/20 23:59 01/13/20 04:05 01/13/20 04:16 POC Whole Blood Glucose 209 MG/DL (74-106) H Pending 155 MG/DL (74-106) H White Blood Count 30.1 K/UL (4.8-10.8) *H Red Blood Count 3.82 M/UL (4.20-5.40) L Hemoglobin 9.8 G/DL (12.0-16.0) #L Hematocrit 31.6 % (37.0-47.0) L Mean Corpuscular Volume 83 FL (80-99) Mean Corpuscular Hemoglobin 25.7 PG (27.0-31.0) L Mean Corpuscular Hemoglobin Concent 31.0 G/DL (32.0-36.0) L Red Cell Distribution Width 16.6 % (11.6-14.8) H Platelet Count 255 K/UL (150-450) Mean Platelet Volume 6.0 FL (6.5-10.1) L Neutrophils (%) (Auto) % (45.0-75.0) Lymphocytes (%) (Auto) % (20.0-45.0) Monocytes (%) (Auto) % (1.0-10.0) Eosinophils (%) (Auto) % (0.0-3.0) Basophils (%) (Auto) % (0.0-2.0) Differential Total Cells Counted 100 Neutrophils % (Manual) 93 % (45-75) H Lymphocytes % (Manual) 1 % (20-45) L Monocytes % (Manual) 6 % (1-10) Eosinophils % (Manual) 0 % (0-3) Basophils % (Manual) 0 % (0-2) Band Neutrophils 0 % (0-8) Platelet Estimate Adequate Platelet Morphology Normal Hypochromasia 2+ Anisocytosis 1+ Sodium Level 137 MMOL/L (136-145) Potassium Level 4.8 MMOL/L (3.5-5.1) Chloride Level 104 MMOL/L (98-107) Carbon Dioxide Level 17 MMOL/L (21-32) L Anion Gap 16 mmol/L (5-15) H Blood Urea Nitrogen 95 mg/dL (7-18) H Creatinine 3.2 MG/DL (0.55-1.30) H Estimat Glomerular Filtration Rate 13.8 mL/min (>60) Glucose Level 150 MG/DL (74-106) H Calcium Level 8.7 MG/DL (8.5-10.1) Phosphorus Level 6.1 MG/DL (2.5-4.9) H Magnesium Level 2.2 MG/DL (1.8-2.4) Total Bilirubin 0.5 MG/DL (0.2-1.0) Aspartate Amino Transf (AST/SGOT) 41 U/L (15-37) H Alanine Aminotransferase (ALT/SGPT) 135 U/L (12-78) H Alkaline Phosphatase 97 U/L (46-116) Total Protein 5.7 G/DL (6.4-8.2) L Albumin 2.0 G/DL (3.4-5.0) L Globulin 3.7 g/dL Albumin/Globulin Ratio 0.5 (1.0-2.7) L Current Medications Medications (Trade) Dose Ordered Sig/Brett Route PRN Reason Start Time Stop Time Status Last Admin Dose Admin Acetaminophen (Tylenol) 650 mg Q4H PRN ORAL FEVER 01/01/20 07:00 01/31/20 06:59 01/09/20 22:58 Acetaminophen (Tylenol) 650 mg Q4H PRN RECTAL Temp >100.5 01/03/20 09:30 02/02/20 09:29 01/03/20 12:18 Albuterol/ Ipratropium (Combivent Respimat) 1 puff Q4H PRN INH Shortness of Breath 01/05/20 20:00 02/04/20 19:59 Allopurinol (allopurinoL) 300 mg DAILY NG 01/07/20 10:45 02/06/20 10:44 01/13/20 08:57 Chlorhexidine Gluconate (Silvia-Hex 2%) 1 applic DAILY@1999 TOPIC 01/07/20 20:00 04/06/20 19:59 01/12/20 20:18 Dextrose (Dextrose 50%) 25 ml Q30M PRN IV Hypoglycemia 01/01/20 08:45 03/31/20 08:44 Dextrose (Dextrose 50%) 50 ml Q30M PRN IV Hypoglycemia 01/01/20 08:45 03/31/20 08:44 Diltiazem HCl 125 ml @ 0 mls/hr Q24H IVPB 01/13/20 00:00 01/14/20 00:00 01/13/20 09:45 Diltiazem HCl (Cardizem) 15 mg Q12H PRN IVP For High Blood Pressure 01/03/20 07:00 02/02/20 06:59 Heparin Sodium (Porcine) (Heparin 5000 units/ml) 5,000 units EVERY 12 HOURS SUBQ 01/01/20 09:00 02/15/20 08:59 01/13/20 08:58 Insulin Aspart (NovoLOG) Q6HR SUBQ 01/09/20 00:00 03/31/20 11:29 01/13/20 06:17 Levothyroxine Sodium (Synthroid) 200 mcg DAILY@0630 ORAL 01/12/20 06:30 02/11/20 06:29 01/13/20 06:16 Linezolid 300 ml @ 300 mls/hr Q12HR IVPB 01/07/20 21:00 01/14/20 20:59 01/13/20 08:57 Lorazepam (Ativan 2mg/ml 1ml) 2 mg Q2H PRN IV For Anxiety 01/09/20 23:45 01/16/20 23:44 01/10/20 21:38 Meropenem 500 mg/ Sodium Chloride 55 ml @ 110 mls/hr Q12HR@0100,1300 IVPB 01/13/20 13:00 01/18/20 12:59 Metoclopramide HCl (Reglan) 10 mg Q6H PRN IVP Nausea & Vomiting 01/11/20 12:15 02/10/20 12:14 01/13/20 06:16 Morphine Sulfate (Morphine Sulfate) 4 mg Q4H PRN IVP For Pain 01/09/20 23:45 01/16/20 23:44 01/09/20 23:50 Ondansetron HCl (Zofran) 4 mg Q6H PRN IVP Nausea & Vomiting 01/01/20 07:00 01/31/20 06:59 Pantoprazole (Protonix) 40 mg Q12HR IV 01/05/20 21:00 02/04/20 08:59 01/13/20 08:56 Sodium Chloride 1,000 ml @ 100 mls/hr Q10H IV 01/08/20 08:15 02/07/20 08:14 01/13/20 08:56 Mehrdad Yepez MD Jan 13, 2020 10:36
--- NOTE | 2020-01-13 12:00 | NUR ---
NURSE NOTES: Blood glucose via accucheck resulted 159, covered with 3units of Novolog per sliding scale order. Temp 99.8F axillary. Cardizem drip is maintained at 10mg/hr to maintain HR below 100.
[2020-01-13] MEDS: Meropenem 500mg/NS 55ml IVPB SCH ×2 (12:21)
--- NOTE | 2020-01-13 12:34 | Surgery Progress Note ---
Surgery Progress Note Subjective Procedure Performed left subclavian central venous catheter insertion Additional Comments ill appearing no n/v Objective Last 24 Hour Vital Signs Date Time Temp Pulse Resp B/P (MAP) Pulse Ox O2 Delivery O2 Flow Rate FiO2 01/13/20 11:13 84 23 80 01/13/20 11:00 90 23 139/56 (83) 94 01/13/20 10:30 91 25 142/53 (82) 93 01/13/20 10:00 91 28 144/49 (80) 93 01/13/20 09:30 98 21 152/57 (88) 92 01/13/20 09:00 92 25 138/57 (84) 93 01/13/20 08:30 93 26 141/53 (82) 93 01/13/20 08:00 92 01/13/20 08:00 80 01/13/20 08:00 Mechanical Ventilator Mechanical Ventilator 01/13/20 08:00 99.8 90 25 149/41 (77) 92 01/13/20 07:46 90 26 80 01/13/20 07:30 90 25 140/52 (81) 91 01/13/20 07:00 90 25 140/52 (81) 91 01/13/20 06:30 92 22 153/59 (90) 90 01/13/20 06:00 90 27 148/55 (86) 91 01/13/20 05:30 86 25 138/51 (80) 91 01/13/20 05:00 82 25 151/46 (81) 91 01/13/20 04:00 80 01/13/20 04:00 Mechanical Ventilator Mechanical Ventilator 01/13/20 04:00 80 01/13/20 04:00 98.8 84 24 145/65 (91) 94 01/13/20 03:00 78 21 137/60 (85) 95 01/13/20 02:34 78 25 80 01/13/20 02:00 80 22 139/55 (83) 95 01/13/20 01:00 79 24 135/54 (81) 94 01/13/20 00:00 80 01/13/20 00:00 99.0 78 23 141/49 (79) 94 01/13/20 00:00 66 01/13/20 00:00 Mechanical Ventilator Mechanical Ventilator 01/12/20 23:00 80 24 135/84 (101) 93 01/12/20 22:40 81 24 80 01/12/20 22:00 76 24 146/53 (84) 93 01/12/20 21:00 77 24 157/63 (94) 94 01/12/20 20:00 98.2 77 24 155/60 (91) 94 01/12/20 20:00 Mechanical Ventilator Mechanical Ventilator 01/12/20 20:00 98.2 72 21 148/57 (87) 96 01/12/20 19:25 81 23 80 01/12/20 19:00 73 22 150/56 (87) 95 01/12/20 18:00 72 21 148/57 (87) 96 01/12/20 17:30 69 20 150/58 (88) 96 01/12/20 17:00 71 21 148/61 (90) 97 01/12/20 16:00 98.6 70 23 133/45 (74) 98 01/12/20 16:00 80 01/12/20 16:00 Mechanical Ventilator Mechanical Ventilator 01/12/20 16:00 65 01/12/20 15:28 82 23 80 01/12/20 15:09 72 19 143/56 (85) 97 01/12/20 15:00 68 18 140/57 (84) 97 01/12/20 14:00 69 19 134/53 (80) 98 01/12/20 13:00 70 20 138/51 (80) 99 I&O Intake and Output 01/12/20 01/13/20 19:00 07:00 Intake Total 2719.167 ml 1910 ml Output Total 120 ml 142 ml Balance 2599.167 ml 1768 ml Free Water 50 ml IV Total 1629.167 ml 1310 ml Tube Feeding 510 ml 550 ml Blood Product 500 ml Other 80 ml Output Urine Total 120 ml 142 ml # Bowel Movements 2 2 Dressing: saturated Cardiovascular: RSR Respiratory: decreased breath sounds Abdomen: soft, non-tender, present bowel sounds Extremities: no tenderness, no cyanosis Laboratory Tests Test 01/12/20 23:59 01/13/20 04:05 01/13/20 04:16 POC Whole Blood Glucose Pending 155 MG/DL (74-106) H White Blood Count 30.1 K/UL (4.8-10.8) *H Red Blood Count 3.82 M/UL (4.20-5.40) L Hemoglobin 9.8 G/DL (12.0-16.0) #L Hematocrit 31.6 % (37.0-47.0) L Mean Corpuscular Volume 83 FL (80-99) Mean Corpuscular Hemoglobin 25.7 PG (27.0-31.0) L Mean Corpuscular Hemoglobin Concent 31.0 G/DL (32.0-36.0) L Red Cell Distribution Width 16.6 % (11.6-14.8) H Platelet Count 255 K/UL (150-450) Mean Platelet Volume 6.0 FL (6.5-10.1) L Neutrophils (%) (Auto) % (45.0-75.0) Lymphocytes (%) (Auto) % (20.0-45.0) Monocytes (%) (Auto) % (1.0-10.0) Eosinophils (%) (Auto) % (0.0-3.0) Basophils (%) (Auto) % (0.0-2.0) Differential Total Cells Counted 100 Neutrophils % (Manual) 93 % (45-75) H Lymphocytes % (Manual) 1 % (20-45) L Monocytes % (Manual) 6 % (1-10) Eosinophils % (Manual) 0 % (0-3) Basophils % (Manual) 0 % (0-2) Band Neutrophils 0 % (0-8) Platelet Estimate Adequate Platelet Morphology Normal Hypochromasia 2+ Anisocytosis 1+ Sodium Level 137 MMOL/L (136-145) Potassium Level 4.8 MMOL/L (3.5-5.1) Chloride Level 104 MMOL/L (98-107) Carbon Dioxide Level 17 MMOL/L (21-32) L Anion Gap 16 mmol/L (5-15) H Blood Urea Nitrogen 95 mg/dL (7-18) H Creatinine 3.2 MG/DL (0.55-1.30) H Estimat Glomerular Filtration Rate 13.8 mL/min (>60) Glucose Level 150 MG/DL (74-106) H Calcium Level 8.7 MG/DL (8.5-10.1) Phosphorus Level 6.1 MG/DL (2.5-4.9) H Magnesium Level 2.2 MG/DL (1.8-2.4) Total Bilirubin 0.5 MG/DL (0.2-1.0) Aspartate Amino Transf (AST/SGOT) 41 U/L (15-37) H Alanine Aminotransferase (ALT/SGPT) 135 U/L (12-78) H Alkaline Phosphatase 97 U/L (46-116) Total Protein 5.7 G/DL (6.4-8.2) L Albumin 2.0 G/DL (3.4-5.0) L Globulin 3.7 g/dL Albumin/Globulin Ratio 0.5 (1.0-2.7) L Plan Problems: (1) Acute on chronic systolic (congestive) heart failure (2) CO2 retention (3) BORIS (acute kidney injury) (4) Shock liver Assessment & Plan: Hypotensive septic acute elevation in LFTs AST ALT thousands alk phos elevated. Likely shock from hypotension and acute episode. Labs mike nding down. IV fluid hydration. No acute intervention. Hold on imaging. Line reviewed. No bleeding noted. All 3 ports functional. Chest x-ray reviewed. Drop in hemoglobin unlikely related to line. Will monitor. Trend labs. Transfuse PRN. And are improvement in position of previously malpositioned endotracheal tube, tip now projecting 1-2 cm above the garrett. Interim placement of an orogastric tube, tip of which projects beyond the edge of the image, presumably well within the stomach. Interim placement of a left subclavian central venous catheter, tip of which projects at the level of the innominate venous confluence. No pneumothorax. Bilateral infiltrates are again demonstrated, unchanged. Impression: Improved and now satisfactory position of endotracheal tube Interim left subclavian central venous catheter placement, no radiographically evident complication Interim orogastric intubation, apparently satisfactory Unchanged bilateral infiltrates (5) Atrial fibrillation (6) Diabetes mellitus (7) CHF (congestive heart failure) (8) Hypothyroidism Assessment & Plan: DAILY ESTIMATED NEEDS: Needs based on Critical care 54kg abw 22-30 kcals/kg 1099-0154 total kcals 1.25-2 g protein/kg 68-108 g total protein 20-25 mL/kg 6049-2456 total fluid mLs NUTRITION DIAGNOSIS: Swallowing difficulty r/t resp status as evidenced by pt adm w/ covid 19 ++, on bipap, now s/p code blue, intubated, on OGT feeds. CURRENT TF:VITAL AF 1.2 @ 55ml/hr x22 hrs ENTERAL NUTRITION RECOMMENDATIONS: VITAL AF 1.2 @ 55ml/hr x 22 hrs to provide 1210, 1452kcal, 91g prot, 981ml free water * Maintain current TF * Hold 1 hr before and after Synthroid * HOB over 30 degrees/ water flush per If renal fxn cont to worsen (creat 3.2 w/ phos 6.1 on 01/12) -> rec TF change to Nepro @ goal rate of 35ml/hr x 22 hrs to provide 770ml, 1386kcal, 62g prot (1.15g/kg), 560ml free water ADDITIONAL RECOMMENDATIONS: 1) Maintain calibrated bed scale wts daily 2) Monitor renal fxn and lytes, need for renal TF (creat worsening 3.2, phos 6.1) 3) Skin integrity: TF @ goal provides 100% RDI Odell BID 4) Monitor BGs, need for additional hypoglycemics (9) Chronic respiratory failure Assessment & Plan: Intubated intensive care unit weaning vent. ET tube in place. Chest x-ray reviewed. (10) History of hypertension (11) 2019 novel coronavirus detected Assessment & Plan: COVID positive as per ID and pulmonology appreciate input and care. Continue vent support wean as tolerated. (12) Acute respiratory failure due to COVID-19 Satinder Olivera Jan 13, 2020 12:34
--- NOTE | 2020-01-13 12:50 | NUR ---
NURSE NOTES: Urine specimen was collected and sent to lab for processing per Dr. Mandel's order. Spoke with pt's family and received consent for non-tunneled dialysis catheter placement for HD treatment. Family was also updated on pt's status.
[2020-01-13 13:18] LABS: APPEARANCE,URINE CLOUDY; BILIRUBIN, URINE NEGATIVE (NEGATIVE); GLUCOSE, URINE (UA) NEGATIVE (NEGATIVE); KETONES,URINE NEGATIVE (NEGATIVE); LEUKOCYTE ESTERASE ,URINE 1+ (NEGATIVE); NITRITE,URINE NEGATIVE (NEGATIVE); PH,URINE 5 (4.5-8.0); PROTEIN,URINE 3+ (NEGATIVE); UROBILINOGEN,URINE NORMAL MG/DL (0.0-1.0)
[2020-01-13 13:29] LABS: COLOR,URINE YELLOW
[2020-01-13] MEDS ORDERED: Tubing Blood Filter IV ONE (14:23)
[2020-01-13] MEDS ORDERED: Tubing IV Secondary IV ONE (14:23)
[2020-01-13] MEDS ORDERED: NS 275ml ONE (14:23)
--- NOTE | 2020-01-13 16:00 | NUR ---
NURSE NOTES: Pt remains on Cardizem drip at 10mg/hr to maintain HR below 100. FIO2 has been titrated up to 100% due to pt desaturating while on 85%. VS currently stable.
--- NOTE | 2020-01-13 17:42 | Internal Med Progress Note ---
Subjective Date of Service: Jan 13, 2020 Physician Name Harris Greenfield Attending Physician Fernando Peguero MD Current Medications Medications (Trade) Dose Ordered Sig/Brett Route PRN Reason Start Time Stop Time Status Last Admin Dose Admin Acetaminophen (Tylenol) 650 mg Q4H PRN ORAL FEVER 01/01/20 07:00 01/31/20 06:59 01/09/20 22:58 Acetaminophen (Tylenol) 650 mg Q4H PRN RECTAL Temp >100.5 01/03/20 09:30 02/02/20 09:29 01/03/20 12:18 Albuterol/ Ipratropium (Combivent Respimat) 1 puff Q4H PRN INH Shortness of Breath 01/05/20 20:00 02/04/20 19:59 Allopurinol (allopurinoL) 300 mg DAILY NG 01/07/20 10:45 02/06/20 10:44 01/13/20 08:57 Chlorhexidine Gluconate (Silvia-Hex 2%) 1 applic DAILY@2000 TOPIC 01/07/20 20:00 04/06/20 19:59 01/12/20 20:18 Dextrose (Dextrose 50%) 25 ml Q30M PRN IV Hypoglycemia 01/01/20 08:45 03/31/20 08:44 Dextrose (Dextrose 50%) 50 ml Q30M PRN IV Hypoglycemia 01/01/20 08:45 03/31/20 08:44 Diltiazem HCl 125 ml @ 0 mls/hr Q24H IVPB 01/13/20 00:00 01/14/20 00:00 01/13/20 09:45 Diltiazem HCl (Cardizem) 15 mg Q12H PRN IVP For High Blood Pressure 01/03/20 07:00 02/02/20 06:59 Heparin Sodium (Porcine) (Heparin 5000 units/ml) 5,000 units EVERY 12 HOURS SUBQ 01/01/20 09:00 02/15/20 08:59 01/13/20 08:58 Insulin Aspart (NovoLOG) Q6HR SUBQ 01/09/20 00:00 03/31/20 11:29 01/13/20 12:54 Levothyroxine Sodium (Synthroid) 200 mcg DAILY@0630 ORAL 01/12/20 06:30 02/11/20 06:29 01/13/20 06:16 Linezolid 300 ml @ 300 mls/hr Q12HR IVPB 01/07/20 21:00 01/14/20 20:59 01/13/20 08:57 Lorazepam (Ativan 2mg/ml 1ml) 2 mg Q2H PRN IV For Anxiety 01/09/20 23:45 01/16/20 23:44 01/10/20 21:38 Meropenem 500 mg/ Sodium Chloride 55 ml @ 110 mls/hr Q12HR@0100,1300 IVPB 01/13/20 13:00 01/18/20 12:59 01/13/20 12:21 Metoclopramide HCl (Reglan) 10 mg Q6H PRN IVP Nausea & Vomiting 01/11/20 12:15 02/10/20 12:14 01/13/20 06:16 Morphine Sulfate (Morphine Sulfate) 4 mg Q4H PRN IVP For Pain 01/09/20 23:45 01/16/20 23:44 01/09/20 23:50 Ondansetron HCl (Zofran) 4 mg Q6H PRN IVP Nausea & Vomiting 01/01/20 07:00 01/31/20 06:59 Pantoprazole (Protonix) 40 mg Q12HR IV 01/05/20 21:00 02/04/20 08:59 01/13/20 08:56 Sodium Chloride 1,000 ml @ 100 mls/hr Q10H IV 01/08/20 08:15 02/07/20 08:14 01/13/20 08:56 Allergies: Coded Allergies: DOXYCYCLINE (Verified Allergy, Unknown, 04/04/19) RIFAMPIN (Verified Allergy, Unknown, 04/04/19) ROS Limited/Unobtainable: Yes Subjective 84 YO F admitted with hypoxia. Now COVID 19 pneumonia. Cover for Int pallavi-DR Peguero. ICU. Intubated and sedated Objective Last Vital Signs Date Time Temp Pulse Resp B/P (MAP) Pulse Ox O2 Delivery O2 Flow Rate FiO2 01/13/20 17:00 88 20 159/60 (93) 91 01/13/20 16:00 85 01/13/20 16:00 Mechanical Ventilator Mechanical Ventilator 01/13/20 12:00 99.7 Laboratory Tests Test 01/12/20 23:59 01/13/20 04:05 01/13/20 04:16 01/13/20 12:50 POC Whole Blood Glucose Pending 155 MG/DL (74-106) H White Blood Count 30.1 K/UL (4.8-10.8) *H Red Blood Count 3.82 M/UL (4.20-5.40) L Hemoglobin 9.8 G/DL (12.0-16.0) #L Hematocrit 31.6 % (37.0-47.0) L Mean Corpuscular Volume 83 FL (80-99) Mean Corpuscular Hemoglobin 25.7 PG (27.0-31.0) L Mean Corpuscular Hemoglobin Concent 31.0 G/DL (32.0-36.0) L Red Cell Distribution Width 16.6 % (11.6-14.8) H Platelet Count 255 K/UL (150-450) Mean Platelet Volume 6.0 FL (6.5-10.1) L Neutrophils (%) (Auto) % (45.0-75.0) Lymphocytes (%) (Auto) % (20.0-45.0) Monocytes (%) (Auto) % (1.0-10.0) Eosinophils (%) (Auto) % (0.0-3.0) Basophils (%) (Auto) % (0.0-2.0) Differential Total Cells Counted 100 Neutrophils % (Manual) 93 % (45-75) H Lymphocytes % (Manual) 1 % (20-45) L Monocytes % (Manual) 6 % (1-10) Eosinophils % (Manual) 0 % (0-3) Basophils % (Manual) 0 % (0-2) Band Neutrophils 0 % (0-8) Platelet Estimate Adequate Platelet Morphology Normal Hypochromasia 2+ Anisocytosis 1+ Sodium Level 137 MMOL/L (136-145) Potassium Level 4.8 MMOL/L (3.5-5.1) Chloride Level 104 MMOL/L (98-107) Carbon Dioxide Level 17 MMOL/L (21-32) L Anion Gap 16 mmol/L (5-15) H Blood Urea Nitrogen 95 mg/dL (7-18) H Creatinine 3.2 MG/DL (0.55-1.30) H Estimat Glomerular Filtration Rate 13.8 mL/min (>60) Glucose Level 150 MG/DL (74-106) H Calcium Level 8.7 MG/DL (8.5-10.1) Phosphorus Level 6.1 MG/DL (2.5-4.9) H Magnesium Level 2.2 MG/DL (1.8-2.4) Total Bilirubin 0.5 MG/DL (0.2-1.0) Aspartate Amino Transf (AST/SGOT) 41 U/L (15-37) H Alanine Aminotransferase (ALT/SGPT) 135 U/L (12-78) H Alkaline Phosphatase 97 U/L (46-116) Total Protein 5.7 G/DL (6.4-8.2) L Albumin 2.0 G/DL (3.4-5.0) L Globulin 3.7 g/dL Albumin/Globulin Ratio 0.5 (1.0-2.7) L Urine Color Yellow Urine Appearance Cloudy Urine pH 5 (4.5-8.0) Urine Specific [place] 1.020 (1.005-1.035) Urine Protein 3+ (NEGATIVE) H Urine Glucose (UA) Negative (NEGATIVE) Urine Ketones Negative (NEGATIVE) Urine Blood 5+ (NEGATIVE) H Urine Nitrite Negative (NEGATIVE) Urine Bilirubin Negative (NEGATIVE) Urine Urobilinogen Normal MG/DL (0.0-1.0) Urine Leukocyte Esterase 1+ (NEGATIVE) H Urine RBC 10-15 /HPF (0 - 2) H Urine WBC 2-4 /HPF (0 - 2) Urine Squamous Epithelial Cells Few /LPF (NONE/OCC) Urine Amorphous Sediment Moderate /LPF (NONE) H Urine Bacteria Few /HPF (NONE) Urine Yeast Moderate /HPF (NONE) H Urine Random Sodium 21 mmol/L (20-110) Intake and Output 01/12/20 01/13/20 19:00 07:00 Intake Total 2719.167 ml 1910 ml Output Total 120 ml 142 ml Balance 2599.167 ml 1768 ml Free Water 50 ml IV Total 1629.167 ml 1310 ml Tube Feeding 510 ml 550 ml Blood Product 500 ml Other 80 ml Output Urine Total 120 ml 142 ml # Bowel Movements 2 2 Objective PHYSICAL EXAMINATION: GENERAL: The patient is a well-developed and well-nourished female, in moderate respiratory distress. HEENT: Eyes, pupils equal and responsive to light and accommodation. Extraocular movements are intact. NECK: Supple without lymphadenopathy. CHEST: Mech vent; Decreased breath sounds at bilateral bases with crackles. Otherwise, without wheezes. CARDIOVASCULAR: Regular rhythm and rate. S1, S2 normal without murmurs, rubs, or gallops. ABDOMEN: Soft, nontender, and nondistended. Positive bowel sounds. No evidence of hepatosplenomegaly. Currently, no rebound or guarding noted. EXTREMITIES: Negative for clubbing, cyanosis, or edema. RECTAL/GENITAL: Not performed. NEUROLOGIC: Cranial nerves II through XII are grossly intact without focal deficits. Assessment/Plan Assessment/Plan ASSESSMENT: This is an 84-year-old female with: 1. COVID-19 positive. 2. Bilateral pneumonia. 3. Hypertension. 4. Atrial fibrillation. 5. Chronic obstructive pulmonary disease. 6. Coronary artery disease. 7. Congestive heart failure. 8. Diabetes type 2. 9. Hypothyroidism. 10. Hypercholesterolemia. 11. Rheumatoid arthritis. 12. Gastroesophageal reflux disease. 13. Respiratory failure 14. S/P cardiac arrest 01/05/20 TREATMENT: 1. COVID-19 positive/pneumonia. Continue decadron; S/P remdesivir 1. Pulmonary/critical care=Dr. Ann-Marie Graves. 2. Hypertension. Continue hydralazine as above. 3. Atrial fibrillation. Continue digoxin as above. 4. Chronic obstructive pulmonary disease. As above, a Pulmonary consultation has been obtained with Dr. Ann-Marie Graves. The patient is currently on albuterol nebulized q.4h. p..r.n. 5. Coronary disease/congestive heart failure. An echocardiogram is pending. A Cardiology consultation has been obtained with Dr. Gaming. 6. Diabetes type 2. NovoLog sliding scale has been instituted. 7. Hypothyroidism. Continue Synthroid as above. 8. Hypercholesterolemia. Continue atorvastatin as above. 9. Rheumatoid arthritis. 10. Gastroesophageal reflux disease. Continue Protonix as above. 11. Continue mech vent per pulmonary 12. ABX=meropenem and linezolid 13. CODE STATUS: Full code 14. DVT prophylaxis: Heparin subcu. Harris Greenfield MD Jan 13, 2020 17:42
--- NOTE | 2020-01-13 18:00 | NUR ---
NURSE NOTES: Pt was cleaned, gown/bed linens were changed, wound dressing was changed. Bilateral upper extremities continue to weep, extremities are elevated on pillows. Total rectal tube output is 50ml liquid/brown stool. Accucheck glucose level resulted 130, no Insulin coverage needed per sliding scale. Pt remains on Cardizem drip at 10mg/hr to maintain HR below 100bmp.
--- NOTE | 2020-01-13 19:20 | NUR ---
NURSE NOTES: Received patient and report from ALEX Hernandez. Patient is observed resting in bed and remains comatose. Pt abnormally flexes to deep pain, no gag reflex noted at this time. Eye opening only noted to deep pain with sluggish pupil response. No pain noted upon assessment.Pt is currently orally intubated ett 7.5 noted to be 23@ lip and appears to be tolerating current vent settings well. Vent settings as follows: AC 16, TV 600 FiO2 100% PEEP 5 with an O2 saturation of 92% noted at this time. Pt noted to be tachypneic with an increased WOB. Pt repositioning in order to assist with positional support. Bilateral lower lobe breath sounds noted to be diminished upon auscultation with rhonchi noted in bilateral upper lobes and rales noted in bilateral lower lobes. Pt noted to be AFib on tele monitor with a HR of 94 and no s/sx of acute cardiac distress noted. L subclavian TLC noted which remains asymptomatic, intact and patent. Central line dressing remains clean, dry and intact. Diltazem currently infusing at 10mg/hr and NS infusing at 100mL/hr as ordered. VS obtained and noted to be stable at this time. OG tube noted which remains secured, intact and patent. Tube feeding currently infusing as prescribed with no residual noted. Active bowel sounds noted in all four quadrants; abdomen remains large, round, soft and non-tender. Kelsey catheter noted, draining to gravity. Diagnostics reviewed at bedside. Skin alterations noted. Fall, Aspiration and Skin precautions observed. Pt remains resting in bed; Bed remains in the lowest position with the safety wheels engaged, call light within reach, side rails up x3 and bed alarm activated. Will continue plan of care. Will continue to monitor.
--- NOTE | 2020-01-13 19:28 | NUR ---
NURSE HAND-OFF REPORT: Latest Vital Signs: Temperature 99.8 , Pulse 97 , B/P 161 /50 , Respiratory Rate 22 , O2 SAT 91 , Mechanical Ventilator, AC16, VT600, Peep 5. FIO2 100%.. Vital Sign Comment: AFib on Cardizem drip at 10mg/hr. EKG Rhythm: Atrial Fibrillation Rhythm change?: N Notified?: Eliezer Gaming MD Response: No New Orders Received Latest Shaw Fall Score: 70 Fall Risk: High Risk Safety Measures: Call light Within Reach, Bed Alarm Zone 1, Side Rails Side Rails x3, Bed position Low and Locked. Fall Precautions: Door Sign Report given to Antonio JOHNSON.
[2020-01-13] MEDS: Dyna-Hex 2% Top Sol 2oz TOPIC SCH (20:06)
--- NOTE | 2020-01-13 20:19 | NUR ---
NURSE NOTES: Full physical assessment performed prior to medication administration. Assessed pt for s/sx of active bleeding none observed. Oral care then performed prior to medication administration, during which time pt noted to have mild blood tinged secretions from gums. Heparin wasted with RN due to pink oral secretions. Unable to "undo" administration in EMAR at this time.
--- NOTE | 2020-01-13 21:00 | NUR ---
NURSE NOTES: Bedside assessment performed, assessed pt with a FLACC scale of 0 noted. Diltiazem remains therapeutic at 10mg/hr, HR noted to remain <100 at this time. VS obtained and noted to be stable at this time. Pt remains calm, comfortable, clean and dry. Pt still noted to be edematous and arms noted to be weeping. Frequent partial bed baths provided with clean linens in order to preserve skin integrity. Pt repositioned for comfort and safety. Fall, Aspiration and Skin precautions observed. Pt remains resting in bed; Bed remains in the lowest position with the safety wheels engaged, call light within reach, side rails up x3 and bed alarm activated. Will continue plan of care. Will continue to monitor.
--- NOTE | 2020-01-13 23:00 | NUR ---
NURSE NOTES: Pt provided with a bed bath, oral care and linen change. Bedside assessment performed, assessed pt with a FLACC scale of 0 noted. VS obtained and noted to be stable at this time. HR remains <100 and pt remains calm, comfortable, clean and dry. Pt continues to tolerate current vent settings well, O2 saturation noted to remains between 90-92%. SOB still noted with exertion. Pt repositioned for comfort and safety. Fall, Aspiration and Skin precautions observed. Pt remains resting in bed; Bed remains in the lowest position with the safety wheels engaged, call light within reach, side rails up x3 and bed alarm activated. Will continue plan of care. Will continue to monitor.
[2020-01-14] VITALS (27 sets, daily range): BP systolic 111–148; BP diastolic 39–66
[2020-01-14] MEDS ORDERED: dilTIAZem Premix 125mg/125ml 125 ML IVPB SCH
--- NOTE | 2020-01-14 | NUR ---
NURSE NOTES: Unable to scan Diltiazem bag or enter manually, verified second RN. Several hours of medication left in newly hung bag currently infusing. Will continue to enter infusion under discontinued IV column for I&O purposes and report to onsite pharmacy upon opening.
[2020-01-14] MEDS: NovoLOG Insulin Flexpen SUBQ SCH ×4 (00:16→17:44)
--- NOTE | 2020-01-14 01:00 | NUR ---
NURSE NOTES: Bedside assessment performed, assessed pt with a FLACC scale of 0 noted. Diltiazem remains therapeutic at 10mg/hr, HR noted to remain <100 at this time. VS obtained and noted to be stable at this time. However, O2 saturation noted to be decreased and remains between 90-92%. RT present at bedside assisting with pt care. Pt now has a moderate amount of blood tinged oral secretions. Flexible, soft tubing used for gentle oral suctioning to maintain patent airway, Oral care provided with lubricating swabs. Pt remains calm, comfortable, clean and dry. Pt still noted to be edematous and arms noted to be weeping. Frequent partial bed baths provided with clean linens in order to preserve skin integrity. Pt repositioned for comfort and safety. Fall, Aspiration and Skin precautions observed. Pt remains resting in bed; Bed remains in the lowest position with the safety wheels engaged, call light within reach, side rails up x3 and bed alarm activated. Will continue plan of care. Will continue to monitor.
[2020-01-14] MEDS: Meropenem 500mg/NS 55ml IVPB SCH ×4 (01:14→12:45)
--- NOTE | 2020-01-14 03:00 | NUR ---
NURSE NOTES: Bedside assessment performed, assessed pt with a FLACC scale of 0 noted. Diltiazem remains therapeutic at 10mg/hr, HR noted to remain <100 at this time. VS obtained and noted to be stable at this time. However, O2 saturation noted to be decreased and remains between 89-91%. Pt continues to have a moderate amount of blood tinged oral secretions. Morning lab samples drawn without incident on first attempt and submitted to the laboratory for analysis. Will await results. Pt remains calm, comfortable, clean and dry. Pt still noted to be edematous and arms noted to continue to weep. Frequent partial bed baths provided with clean linens in order to preserve skin integrity. Pt repositioned for comfort and safety. Fall, Aspiration and Skin precautions observed. Pt remains resting in bed; Bed remains in the lowest position with the safety wheels engaged, call light within reach, side rails up x3 and bed alarm activated. Will continue plan of care. Will continue to monitor.
[2020-01-14 04:43] LABS: HEMATOCRIT 33.8 % (37.0-47.0); HEMOGLOBIN 10.3 G/DL (12.0-16.0); MEAN CORPUSCULAR VOLUME 85 FL (80-99); PLATELET COUNT 317 K/UL (150-450); RED BLOOD COUNT 3.98 M/UL (4.20-5.40); RED CELL DISTRIBUTION WIDTH 16.7 % (11.6-14.8)
--- NOTE | 2020-01-14 05:00 | NUR ---
NURSE NOTES: Rt called to bedside to assist with changing anchorfast for patient safety. Anchorfast noted to be soiled and slipping. Ett remains intact and in place (24 @ lip line) Bedside assessment performed, assessed pt with a FLACC scale of 0 noted. Diltiazem remains therapeutic at 10mg/hr, HR noted to remain <90 at this time. VS obtained and noted to be stable at this time. However, O2 saturation continually noted to be decreased and remains between 88-91%. Increased WOB now noted again. Will inform glycerine plant operator. Morning lab values denoted an increase in WBC to 37.6, will notify ID. Pt remains calm, comfortable, clean and dry. Pt still noted to be edematous and arms noted to continue to weep. Frequent partial bed baths provided with clean linens in order to preserve skin integrity. Pt repositioned for comfort and safety. Fall, Aspiration and Skin precautions observed. Pt remains resting in bed; Bed remains in the lowest position with the safety wheels engaged, call light within reach, side rails up x3 and bed alarm activated. Will continue plan of care. Will continue to monitor.
[2020-01-14 05:08] LABS: INR 1.1 (0.9-1.1)
[2020-01-14 05:13] LABS: WHITE BLOOD COUNT 37.6 K/UL (4.8-10.8)
[2020-01-14 05:36] LABS: ALBUMIN 1.8 G/DL (3.4-5.0); ALBUMIN/GLOBULIN RATIO 0.4 (1.0-2.7); BILIRUBIN,TOTAL 0.4 MG/DL (0.2-1.0); CREATININE 3.7 MG/DL (0.55-1.30); PHOSPHORUS 7.4 MG/DL (2.5-4.9); POTASSIUM 5.4 MMOL/L (3.5-5.1)
--- NOTE | 2020-01-14 07:13 | NUR ---
NURSE HAND-OFF REPORT: Latest Vital Signs: Temperature 98.4 , Pulse 83 , B/P 129 /55 , Respiratory Rate 24 , O2 SAT 93 , Mechanical Ventilator, O2 Flow Rate 10.0 . Vital Sign Comment: - EKG Rhythm: Atrial Fibrillation Rhythm change?: N Notified?: N Response: N/A Latest Shaw Fall Score: 70 Fall Risk: High Risk Safety Measures: Call light Within Reach, Bed Alarm Zone 2, Side Rails Side Rails x3, Bed position Low and Locked. Fall Precautions: Door Sign Report given to ALEX Hernandez. Endorsed plan of care.
--- NOTE | 2020-01-14 08:00 | NUR ---
NURSE NOTES: Pt was assessed after receiving change of shift report from Antonio JOHNSON. Pt is orally intubated, eyes closed, does not respond to voice or touch, only withdraws to deep-painful stimuli, hypoactive gag reflex. ETT 7.5 at 23cm lipline, with vent settings AC 16, VT600, Peep 5.0, FIO2 100%, at 100% O2Sat. 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 Cardizem drip is infusing at 10mg/hr, and NS 100ml/hour via left subclavian TLC. Bilateral upper extremities are edematous and weeping. OGT with feeding Vital AF, goal rate of 55ml/hour; was off after 0630 Synthroid administration; feeding is now resumed. Zero residual. Mo catheter is present; pt is olyguric, mo draining 0-10ml dark yellow/cloudy urine with moderate sediments. Rectal tube is in place, draining liquid brown stool. Pt has skin alterations, sacral DTI covered with optifoam dressing, and bilateral facial cheekbones redness; Pt is on pressure release mattress. HOB at 30 degrees, bed locked, in lowest position, three side rails up. Will resume with plan of care.
[2020-01-14] MEDS: dilTIAZem Premix 125mg/125ml 125 ML IVPB SCH ×2 (08:32→23:02)
[2020-01-14] MEDS: Pantoprazole Inj IV SCH ×2 (08:32→20:08)
[2020-01-14] MEDS: Heparin 5000 units/ml inj SUBQ SCH ×2 (08:33→20:10)
[2020-01-14] MEDS ORDERED: Sodium Polystyrene Sulfonate 15gm Powder NG SCH (09:16)
--- NOTE | 2020-01-14 10:00 | NUR ---
NURSE NOTES: AM meds were administered; Heparin subcutaneous was held due to moderate amount of blood-tinged sputum. Rectal tube was noted to be outside of the rectum, and was replaced with new tubing; currently continues to drain liquid brown stool. Dr Mandel is at the nurse's station, and aware of lab results. Per MD order, Kayexalate 30gm was administered via OGT for K level of 5.4. Per MD, later this afternoon, order will be placed for hemodialysis treatment, after pt receives non-tunneled catheter placement by IR. Consents for both procedures have been received from [facility]PO[facility] and filed in pt's chart.
--- NOTE | 2020-01-14 10:38 | Pulmonolgy Critical Care Note ---
Critical Care - Asmt/Plan Problems: (1) Acute respiratory failure due to COVID-19 (2) BORIS (acute kidney injury) (3) Acute on chronic systolic (congestive) heart failure (4) Atrial fibrillation (5) Diabetes mellitus (6) CHF (congestive heart failure) (7) Hypothyroidism (8) Chronic respiratory failure (9) History of hypertension Respiratory: monitor respiratory rate, adjust FIO2, CXR Cardiac: continue pressors, continue to monitor HR/BP Renal: F/U I&O, check electrolytes Infectious Disease: continue antibiotics Gastrointestinal: continue feedings/current rate Endocrine: monitor blood sugar Hematologic: monitor H/H, transfuse if hgb<8.5 Neurologic: PRN Morphine, keep patient comfortable Prophylaxis: Protonix, Heparin Disposition: keep in ICU Time Spent (Minutes): 40 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, 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 Discussed with: nurses, consultants, casework specialistic design manager - Objective Last 24 Hour Vital Signs Date Time Temp Pulse Resp B/P (MAP) Pulse Ox O2 Delivery O2 Flow Rate FiO2 01/14/20 08:00 83 01/14/20 07:00 83 24 129/55 (79) 93 01/14/20 07:00 83 20 100 01/14/20 06:00 85 21 131/50 (77) 92 01/14/20 05:00 87 23 129/49 (75) 91 01/14/20 04:00 Mechanical Ventilator Mechanical Ventilator Mechanical Ventilator 01/14/20 04:00 100 01/14/20 04:00 98.4 85 23 138/52 (80) 90 01/14/20 03:07 91 01/14/20 03:00 85 27 139/66 (90) 90 01/14/20 02:58 97 26 100 01/14/20 02:00 86 27 143/53 (83) 91 01/14/20 01:00 89 23 148/65 (92) 91 01/14/20 00:00 100 01/14/20 00:00 Mechanical Ventilator Mechanical Ventilator Mechanical Ventilator 01/14/20 00:00 98.4 89 28 148/49 (82) 83 01/13/20 23:14 87 01/13/20 23:00 93 24 141/55 (83) 92 01/13/20 22:43 95 25 100 01/13/20 22:00 91 19 145/64 (91) 93 01/13/20 21:00 93 18 144/52 (82) 92 01/13/20 20:00 99.2 96 25 140/44 (76) 92 01/13/20 20:00 Mechanical Ventilator Mechanical Ventilator Mechanical Ventilator 01/13/20 20:00 100 01/13/20 19:31 104 01/13/20 19:10 97 22 100 01/13/20 19:00 94 27 161/50 (87) 91 01/13/20 18:00 99.8 88 27 148/58 (88) 93 01/13/20 17:00 88 20 159/60 (93) 91 01/13/20 16:00 93 29 138/49 (78) 94 01/13/20 16:00 78 26 138/48 (78) 94 01/13/20 16:00 90 01/13/20 16:00 85 01/13/20 16:00 Mechanical Ventilator Mechanical Ventilator 01/13/20 15:45 91 27 100 01/13/20 15:00 93 29 138/48 (78) 93 01/13/20 14:00 94 27 137/57 (83) 93 01/13/20 13:00 91 26 140/62 (88) 93 01/13/20 12:30 92 28 141/51 (81) 93 01/13/20 12:00 99.7 92 27 144/62 (89) 93 01/13/20 12:00 Mechanical Ventilator Mechanical Ventilator 01/13/20 12:00 85 01/13/20 12:00 95 01/13/20 11:13 84 23 80 01/13/20 11:00 90 23 139/56 (83) 94 Status: awake Condition: critical HEENT: atraumatic, normocephalic Heart: HR/BP stable Abdomen: non-tender Extremities: no C/C/E Micro: Microbiology Date/Time Source Procedure Growth Status 01/13/20 04:00 Stool Clostridium difficile Toxin Assay - Final Complete Accucheck: 156 Critical Care - Subjective ROS Limited/Unobtainable: Yes Condition: critical EKG Rhythm: Sinus Rhythm FI02: 100 Vent Support Breath Rate: 16 Vent Support Mode: AC Vent Tidal Volume: 600 Sputum Amount: Moderate PEEP: 5.0 PIP: 53 Tube Feeding Amount: 55 I&O: Intake and Output 01/13/20 01/14/20 19:00 07:00 Intake Total 2234.17 ml 2168.163 ml Output Total 58 ml 165 ml Balance 2176.17 ml 2003.163 ml Free Water 60 ml 90 ml IV Total 1484.17 ml 1553.163 ml Tube Feeding 660 ml 495 ml Other 30 ml 30 ml Output Urine Total 58 ml 65 ml Stool Total 100 ml CXR: ET in good position ET-Tube: 7.5 ET Position: 23 Labs: Laboratory Tests Test 01/13/20 12:50 01/14/20 03:45 Urine Color Yellow Urine Appearance Cloudy Urine pH 5 (4.5-8.0) Urine Specific [place] 1.020 (1.005-1.035) Urine Protein 3+ (NEGATIVE) H Urine Glucose (UA) Negative (NEGATIVE) Urine Ketones Negative (NEGATIVE) Urine Blood 5+ (NEGATIVE) H Urine Nitrite Negative (NEGATIVE) Urine Bilirubin Negative (NEGATIVE) Urine Urobilinogen Normal MG/DL (0.0-1.0) Urine Leukocyte Esterase 1+ (NEGATIVE) H Urine RBC 10-15 /HPF (0 - 2) H Urine WBC 2-4 /HPF (0 - 2) Urine Squamous Epithelial Cells Few /LPF (NONE/OCC) Urine Amorphous Sediment Moderate /LPF (NONE) H Urine Bacteria Few /HPF (NONE) Urine Yeast Moderate /HPF (NONE) H Urine Random Sodium 21 mmol/L (20-110) White Blood Count 37.6 K/UL (4.8-10.8) *H Red Blood Count 3.98 M/UL (4.20-5.40) L Hemoglobin 10.3 G/DL (12.0-16.0) L Hematocrit 33.8 % (37.0-47.0) L Mean Corpuscular Volume 85 FL (80-99) Mean Corpuscular Hemoglobin 25.8 PG (27.0-31.0) L Mean Corpuscular Hemoglobin Concent 30.4 G/DL (32.0-36.0) L Red Cell Distribution Width 16.7 % (11.6-14.8) H Platelet Count 317 K/UL (150-450) Mean Platelet Volume 6.0 FL (6.5-10.1) L Neutrophils (%) (Auto) % (45.0-75.0) Lymphocytes (%) (Auto) % (20.0-45.0) Monocytes (%) (Auto) % (1.0-10.0) Eosinophils (%) (Auto) % (0.0-3.0) Basophils (%) (Auto) % (0.0-2.0) Differential Total Cells Counted 100 Neutrophils % (Manual) 95 % (45-75) H Lymphocytes % (Manual) 1 % (20-45) L Monocytes % (Manual) 3 % (1-10) Eosinophils % (Manual) 0 % (0-3) Basophils % (Manual) 0 % (0-2) Band Neutrophils 1 % (0-8) Platelet Estimate Adequate Platelet Morphology Normal Hypochromasia 1+ Anisocytosis 1+ Erythrocyte Sedimentation Rate 76 MM/HR (0-30) H Prothrombin Time 11.7 SEC (9.30-11.50) H Prothromb Time International Ratio 1.1 (0.9-1.1) Activated Partial Thromboplast Time 27 SEC (23-33) Sodium Level 138 MMOL/L (136-145) Potassium Level 5.4 MMOL/L (3.5-5.1) H Chloride Level 104 MMOL/L (98-107) Carbon Dioxide Level 13 MMOL/L (21-32) L Anion Gap 21 mmol/L (5-15) H Blood Urea Nitrogen 99 mg/dL (7-18) H Creatinine 3.7 MG/DL (0.55-1.30) H Estimat Glomerular Filtration Rate 11.6 mL/min (>60) Glucose Level 230 MG/DL (74-106) H Uric Acid 6.0 MG/DL (2.6-7.2) Calcium Level 9.0 MG/DL (8.5-10.1) Phosphorus Level 7.4 MG/DL (2.5-4.9) H Magnesium Level 2.2 MG/DL (1.8-2.4) Total Bilirubin 0.4 MG/DL (0.2-1.0) Gamma Glutamyl Transpeptidase 99 U/L (5-85) H Aspartate Amino Transf (AST/SGOT) 39 U/L (15-37) H Alanine Aminotransferase (ALT/SGPT) 99 U/L (12-78) H Alkaline Phosphatase 118 U/L (46-116) H C-Reactive Protein, Quantitative 33.5 mg/dL (0.00-0.90) H Pro-B-Type Natriuretic Peptide 99772 pg/mL (0-125) H Total Protein 6.6 G/DL (6.4-8.2) Albumin 1.8 G/DL (3.4-5.0) L Globulin 4.8 g/dL Albumin/Globulin Ratio 0.4 (1.0-2.7) L Thyroid Stimulating Hormone (TSH) 2.131 uiU/mL (0.358-3.740) Ann-Marie Graves MD Jan 14, 2020 10:38
--- NOTE | 2020-01-14 11:39 | Infectious Diseases Prog Note ---
Assessment/Plan Assessment: Asystole arrest Sepsis COVID19 pneumonia Acute hypoxic resp failure sp NRB> Bipap 100% Fio2> VDRF 100% -01/01 CXR: Vascular congestion/developing failure and bilateral patchy infiltrates, slightly worse since prior exam. Small bilateral pleural effusions.Prominent mediastinum likely due to tortuous/ectatic thoracic aorta. -12/31 CXR: Centrally predominant interstitial and airspace opacities, pulmonary edema most likely. Cardiomegaly. Fever; SP No leukocytosis Dm2 COPD HTN former smoker CAD CHF RA GERD hypothyroidism Afib [place] resident ([facility]) Plan: - Repeat Cultures - Continue Meropenem #3 - Cont Linazolid #7/7 - D/C Zosyn #6 - 01/09/20 SP Remdesivir #5 per [facility] ADA – ADA criteria- patient cannot provide consent; Benefits outweigh risks. - 01/07/20 Ceftriaxone #7 - 12/31 SP Cefepime x1, Flagyl x1 -f/u cx -Monitor CBC/CMP, temperatures -ETT/ICU care D/w RN Thank you for consulting [facility]. Will continue to follow along with you. Subjective Allergies: Coded Allergies: DOXYCYCLINE (Verified Allergy, Unknown, 04/04/19) RIFAMPIN (Verified Allergy, Unknown, 04/04/19) Afebrile On Vent 100% O2 WBCs up to 37 Will mcdermott Cx again Objective Last 24 Hour Vital Signs Date Time Temp Pulse Resp B/P (MAP) Pulse Ox O2 Delivery O2 Flow Rate FiO2 01/14/20 11:00 86 20 122/44 (70) 94 01/14/20 10:00 86 25 124/52 (76) 92 01/14/20 09:30 82 25 128/54 (78) 93 01/14/20 09:00 81 22 134/55 (81) 93 01/14/20 08:00 83 01/14/20 08:00 100 01/14/20 08:00 Mechanical Ventilator Mechanical Ventilator Mechanical Ventilator 01/14/20 08:00 98.8 86 24 126/52 (76) 93 01/14/20 07:00 83 24 129/55 (79) 93 01/14/20 07:00 83 20 100 01/14/20 06:00 85 21 131/50 (77) 92 01/14/20 05:00 87 23 129/49 (75) 91 01/14/20 04:00 Mechanical Ventilator Mechanical Ventilator Mechanical Ventilator 01/14/20 04:00 100 01/14/20 04:00 98.4 85 23 138/52 (80) 90 01/14/20 03:07 91 01/14/20 03:00 85 27 139/66 (90) 90 01/14/20 02:58 97 26 100 01/14/20 02:00 86 27 143/53 (83) 91 01/14/20 01:00 89 23 148/65 (92) 91 01/14/20 00:00 100 01/14/20 00:00 Mechanical Ventilator Mechanical Ventilator Mechanical Ventilator 01/14/20 00:00 98.4 89 28 148/49 (82) 83 01/13/20 23:14 87 01/13/20 23:00 93 24 141/55 (83) 92 01/13/20 22:43 95 25 100 01/13/20 22:00 91 19 145/64 (91) 93 01/13/20 21:00 93 18 144/52 (82) 92 01/13/20 20:00 99.2 96 25 140/44 (76) 92 01/13/20 20:00 Mechanical Ventilator Mechanical Ventilator Mechanical Ventilator 01/13/20 20:00 100 01/13/20 19:31 104 01/13/20 19:10 97 22 100 01/13/20 19:00 94 27 161/50 (87) 91 01/13/20 18:00 99.8 88 27 148/58 (88) 93 01/13/20 17:00 88 20 159/60 (93) 91 01/13/20 16:00 93 29 138/49 (78) 94 01/13/20 16:00 78 26 138/48 (78) 94 01/13/20 16:00 90 01/13/20 16:00 85 01/13/20 16:00 Mechanical Ventilator Mechanical Ventilator 01/13/20 15:45 91 27 100 01/13/20 15:00 93 29 138/48 (78) 93 01/13/20 14:00 94 27 137/57 (83) 93 01/13/20 13:00 91 26 140/62 (88) 93 01/13/20 12:30 92 28 141/51 (81) 93 01/13/20 12:00 99.7 92 27 144/62 (89) 93 01/13/20 12:00 Mechanical Ventilator Mechanical Ventilator 01/13/20 12:00 85 01/13/20 12:00 95 Height (Feet): 5 Height (Inches): 2.00 Weight (Pounds): 155 GENERAL: On Vent 100% O2 HEENT: NCAT, MMM LUNGS: Equal rise and fall of chest B/L no accessory muscle use ABDOMEN: Soft, nondistended EXTREMITIES: No cyanosis, clubbing, or edema. Microbiology Date/Time Source Procedure Growth Status 01/13/20 04:00 Stool Clostridium difficile Toxin Assay - Final Complete Laboratory Tests Test 01/13/20 12:50 01/14/20 03:45 Urine Color Yellow Urine Appearance Cloudy Urine pH 5 (4.5-8.0) Urine Specific [place] 1.020 (1.005-1.035) Urine Protein 3+ (NEGATIVE) H Urine Glucose (UA) Negative (NEGATIVE) Urine Ketones Negative (NEGATIVE) Urine Blood 5+ (NEGATIVE) H Urine Nitrite Negative (NEGATIVE) Urine Bilirubin Negative (NEGATIVE) Urine Urobilinogen Normal MG/DL (0.0-1.0) Urine Leukocyte Esterase 1+ (NEGATIVE) H Urine RBC 10-15 /HPF (0 - 2) H Urine WBC 2-4 /HPF (0 - 2) Urine Squamous Epithelial Cells Few /LPF (NONE/OCC) Urine Amorphous Sediment Moderate /LPF (NONE) H Urine Bacteria Few /HPF (NONE) Urine Yeast Moderate /HPF (NONE) H Urine Random Sodium 21 mmol/L (20-110) White Blood Count 37.6 K/UL (4.8-10.8) *H Red Blood Count 3.98 M/UL (4.20-5.40) L Hemoglobin 10.3 G/DL (12.0-16.0) L Hematocrit 33.8 % (37.0-47.0) L Mean Corpuscular Volume 85 FL (80-99) Mean Corpuscular Hemoglobin 25.8 PG (27.0-31.0) L Mean Corpuscular Hemoglobin Concent 30.4 G/DL (32.0-36.0) L Red Cell Distribution Width 16.7 % (11.6-14.8) H Platelet Count 317 K/UL (150-450) Mean Platelet Volume 6.0 FL (6.5-10.1) L Neutrophils (%) (Auto) % (45.0-75.0) Lymphocytes (%) (Auto) % (20.0-45.0) Monocytes (%) (Auto) % (1.0-10.0) Eosinophils (%) (Auto) % (0.0-3.0) Basophils (%) (Auto) % (0.0-2.0) Differential Total Cells Counted 100 Neutrophils % (Manual) 95 % (45-75) H Lymphocytes % (Manual) 1 % (20-45) L Monocytes % (Manual) 3 % (1-10) Eosinophils % (Manual) 0 % (0-3) Basophils % (Manual) 0 % (0-2) Band Neutrophils 1 % (0-8) Platelet Estimate Adequate Platelet Morphology Normal Hypochromasia 1+ Anisocytosis 1+ Erythrocyte Sedimentation Rate 76 MM/HR (0-30) H Prothrombin Time 11.7 SEC (9.30-11.50) H Prothromb Time International Ratio 1.1 (0.9-1.1) Activated Partial Thromboplast Time 27 SEC (23-33) Sodium Level 138 MMOL/L (136-145) Potassium Level 5.4 MMOL/L (3.5-5.1) H Chloride Level 104 MMOL/L (98-107) Carbon Dioxide Level 13 MMOL/L (21-32) L Anion Gap 21 mmol/L (5-15) H Blood Urea Nitrogen 99 mg/dL (7-18) H Creatinine 3.7 MG/DL (0.55-1.30) H Estimat Glomerular Filtration Rate 11.6 mL/min (>60) Glucose Level 230 MG/DL (74-106) H Uric Acid 6.0 MG/DL (2.6-7.2) Calcium Level 9.0 MG/DL (8.5-10.1) Phosphorus Level 7.4 MG/DL (2.5-4.9) H Magnesium Level 2.2 MG/DL (1.8-2.4) Total Bilirubin 0.4 MG/DL (0.2-1.0) Gamma Glutamyl Transpeptidase 99 U/L (5-85) H Aspartate Amino Transf (AST/SGOT) 39 U/L (15-37) H Alanine Aminotransferase (ALT/SGPT) 99 U/L (12-78) H Alkaline Phosphatase 118 U/L (46-116) H C-Reactive Protein, Quantitative 33.5 mg/dL (0.00-0.90) H Pro-B-Type Natriuretic Peptide 69531 pg/mL (0-125) H Total Protein 6.6 G/DL (6.4-8.2) Albumin 1.8 G/DL (3.4-5.0) L Globulin 4.8 g/dL Albumin/Globulin Ratio 0.4 (1.0-2.7) L Thyroid Stimulating Hormone (TSH) 2.131 uiU/mL (0.358-3.740) Current Medications Medications (Trade) Dose Ordered Sig/Brett Route PRN Reason Start Time Stop Time Status Last Admin Dose Admin Acetaminophen (Tylenol) 650 mg Q4H PRN ORAL FEVER 01/01/20 07:00 01/31/20 06:59 01/09/20 22:58 Acetaminophen (Tylenol) 650 mg Q4H PRN RECTAL Temp >100.5 01/03/20 09:30 02/02/20 09:29 01/03/20 12:18 Albuterol/ Ipratropium (Combivent Respimat) 1 puff Q4H PRN INH Shortness of Breath 01/05/20 20:00 02/04/20 19:59 Allopurinol (allopurinoL) 300 mg DAILY NG 01/07/20 10:45 02/06/20 10:44 01/14/20 08:33 Chlorhexidine Gluconate (Silvia-Hex 2%) 1 applic DAILY@2000 TOPIC 01/07/20 20:00 04/06/20 19:59 01/13/20 20:06 Dextrose (Dextrose 50%) 25 ml Q30M PRN IV Hypoglycemia 01/01/20 08:45 03/31/20 08:44 Dextrose (Dextrose 50%) 50 ml Q30M PRN IV Hypoglycemia 01/01/20 08:45 03/31/20 08:44 Diltiazem HCl 125 ml @ 0 mls/hr Q24H IVPB 01/14/20 07:42 01/15/20 07:41 01/14/20 08:32 Diltiazem HCl (Cardizem) 15 mg Q12H PRN IVP For High Blood Pressure 01/03/20 07:00 02/02/20 06:59 Heparin Sodium (Porcine) (Heparin 5000 units/ml) 5,000 units EVERY 12 HOURS SUBQ 01/01/20 09:00 02/15/20 08:59 01/13/20 08:58 Insulin Aspart (NovoLOG) Q6HR SUBQ 01/09/20 00:00 03/31/20 11:29 01/14/20 05:52 Levothyroxine Sodium (Synthroid) 200 mcg DAILY@0630 ORAL 01/12/20 06:30 02/11/20 06:29 01/14/20 05:50 Linezolid 300 ml @ 300 mls/hr Q12HR IVPB 01/07/20 21:00 01/14/20 20:59 01/14/20 08:33 Lorazepam (Ativan 2mg/ml 1ml) 2 mg Q2H PRN IV For Anxiety 01/09/20 23:45 01/16/20 23:44 01/10/20 21:38 Meropenem 500 mg/ Sodium Chloride 55 ml @ 110 mls/hr Q12HR@0100,1300 IVPB 01/13/20 13:00 01/18/20 12:59 01/14/20 01:14 Metoclopramide HCl (Reglan) 10 mg Q6H PRN IVP Nausea & Vomiting 01/11/20 12:15 02/10/20 12:14 01/13/20 06:16 Morphine Sulfate (Morphine Sulfate) 4 mg Q4H PRN IVP For Pain 01/09/20 23:45 01/16/20 23:44 01/09/20 23:50 Ondansetron HCl (Zofran) 4 mg Q6H PRN IVP Nausea & Vomiting 01/01/20 07:00 01/31/20 06:59 Pantoprazole (Protonix) 40 mg Q12HR IV 01/05/20 21:00 02/04/20 08:59 01/14/20 08:32 Sevelamer Carbonate (Renvela) 800 mg THREE TIMES A DAY NG 01/14/20 13:00 04/13/20 12:59 Sodium Polystyrene Sulfonate (Kayexalate) 30 gm ONCE NG 01/14/20 09:16 01/14/20 12:00 10/2/20 09:32 Sodium Chloride 1,000 ml @ 100 mls/hr Q10H IV 01/08/20 08:15 02/07/20 08:14 01/14/20 03:34 Mehrdad Yepez MD Jan 14, 2020 11:39
--- NOTE | 2020-01-14 11:54 | Surgery Progress Note ---
Surgery Progress Note Subjective Procedure Performed left subclavian central venous catheter insertion Additional Comments on vent support ill appearing in ICU \no n/v Objective Last 24 Hour Vital Signs Date Time Temp Pulse Resp B/P (MAP) Pulse Ox O2 Delivery O2 Flow Rate FiO2 01/14/20 11:00 86 20 122/44 (70) 94 01/14/20 10:00 86 25 124/52 (76) 92 01/14/20 09:30 82 25 128/54 (78) 93 01/14/20 09:00 81 22 134/55 (81) 93 01/14/20 08:00 83 01/14/20 08:00 100 01/14/20 08:00 Mechanical Ventilator Mechanical Ventilator Mechanical Ventilator 01/14/20 08:00 98.8 86 24 126/52 (76) 93 01/14/20 07:00 83 24 129/55 (79) 93 01/14/20 07:00 83 20 100 01/14/20 06:00 85 21 131/50 (77) 92 01/14/20 05:00 87 23 129/49 (75) 91 01/14/20 04:00 Mechanical Ventilator Mechanical Ventilator Mechanical Ventilator 01/14/20 04:00 100 01/14/20 04:00 98.4 85 23 138/52 (80) 90 01/14/20 03:07 91 01/14/20 03:00 85 27 139/66 (90) 90 01/14/20 02:58 97 26 100 01/14/20 02:00 86 27 143/53 (83) 91 01/14/20 01:00 89 23 148/65 (92) 91 01/14/20 00:00 100 01/14/20 00:00 Mechanical Ventilator Mechanical Ventilator Mechanical Ventilator 01/14/20 00:00 98.4 89 28 148/49 (82) 83 01/13/20 23:14 87 01/13/20 23:00 93 24 141/55 (83) 92 01/13/20 22:43 95 25 100 01/13/20 22:00 91 19 145/64 (91) 93 01/13/20 21:00 93 18 144/52 (82) 92 01/13/20 20:00 99.2 96 25 140/44 (76) 92 01/13/20 20:00 Mechanical Ventilator Mechanical Ventilator Mechanical Ventilator 01/13/20 20:00 100 01/13/20 19:31 104 01/13/20 19:10 97 22 100 01/13/20 19:00 94 27 161/50 (87) 91 01/13/20 18:00 99.8 88 27 148/58 (88) 93 01/13/20 17:00 88 20 159/60 (93) 91 01/13/20 16:00 93 29 138/49 (78) 94 01/13/20 16:00 78 26 138/48 (78) 94 01/13/20 16:00 90 01/13/20 16:00 85 01/13/20 16:00 Mechanical Ventilator Mechanical Ventilator 01/13/20 15:45 91 27 100 01/13/20 15:00 93 29 138/48 (78) 93 01/13/20 14:00 94 27 137/57 (83) 93 01/13/20 13:00 91 26 140/62 (88) 93 01/13/20 12:30 92 28 141/51 (81) 93 01/13/20 12:00 99.7 92 27 144/62 (89) 93 01/13/20 12:00 Mechanical Ventilator Mechanical Ventilator 01/13/20 12:00 85 01/13/20 12:00 95 I&O Intake and Output 01/13/20 01/14/20 19:00 07:00 Intake Total 2234.17 ml 2168.163 ml Output Total 58 ml 165 ml Balance 2176.17 ml 2003.163 ml Free Water 60 ml 90 ml IV Total 1484.17 ml 1553.163 ml Tube Feeding 660 ml 495 ml Other 30 ml 30 ml Output Urine Total 58 ml 65 ml Stool Total 100 ml Dressing: saturated Cardiovascular: RSR Respiratory: decreased breath sounds Abdomen: soft, non-tender, present bowel sounds Extremities: edema, no tenderness, no cyanosis Laboratory Tests Test 01/13/20 12:50 01/14/20 03:45 Urine Color Yellow Urine Appearance Cloudy Urine pH 5 (4.5-8.0) Urine Specific [place] 1.020 (1.005-1.035) Urine Protein 3+ (NEGATIVE) H Urine Glucose (UA) Negative (NEGATIVE) Urine Ketones Negative (NEGATIVE) Urine Blood 5+ (NEGATIVE) H Urine Nitrite Negative (NEGATIVE) Urine Bilirubin Negative (NEGATIVE) Urine Urobilinogen Normal MG/DL (0.0-1.0) Urine Leukocyte Esterase 1+ (NEGATIVE) H Urine RBC 10-15 /HPF (0 - 2) H Urine WBC 2-4 /HPF (0 - 2) Urine Squamous Epithelial Cells Few /LPF (NONE/OCC) Urine Amorphous Sediment Moderate /LPF (NONE) H Urine Bacteria Few /HPF (NONE) Urine Yeast Moderate /HPF (NONE) H Urine Random Sodium 21 mmol/L (20-110) White Blood Count 37.6 K/UL (4.8-10.8) *H Red Blood Count 3.98 M/UL (4.20-5.40) L Hemoglobin 10.3 G/DL (12.0-16.0) L Hematocrit 33.8 % (37.0-47.0) L Mean Corpuscular Volume 85 FL (80-99) Mean Corpuscular Hemoglobin 25.8 PG (27.0-31.0) L Mean Corpuscular Hemoglobin Concent 30.4 G/DL (32.0-36.0) L Red Cell Distribution Width 16.7 % (11.6-14.8) H Platelet Count 317 K/UL (150-450) Mean Platelet Volume 6.0 FL (6.5-10.1) L Neutrophils (%) (Auto) % (45.0-75.0) Lymphocytes (%) (Auto) % (20.0-45.0) Monocytes (%) (Auto) % (1.0-10.0) Eosinophils (%) (Auto) % (0.0-3.0) Basophils (%) (Auto) % (0.0-2.0) Differential Total Cells Counted 100 Neutrophils % (Manual) 95 % (45-75) H Lymphocytes % (Manual) 1 % (20-45) L Monocytes % (Manual) 3 % (1-10) Eosinophils % (Manual) 0 % (0-3) Basophils % (Manual) 0 % (0-2) Band Neutrophils 1 % (0-8) Platelet Estimate Adequate Platelet Morphology Normal Hypochromasia 1+ Anisocytosis 1+ Erythrocyte Sedimentation Rate 76 MM/HR (0-30) H Prothrombin Time 11.7 SEC (9.30-11.50) H Prothromb Time International Ratio 1.1 (0.9-1.1) Activated Partial Thromboplast Time 27 SEC (23-33) Sodium Level 138 MMOL/L (136-145) Potassium Level 5.4 MMOL/L (3.5-5.1) H Chloride Level 104 MMOL/L (98-107) Carbon Dioxide Level 13 MMOL/L (21-32) L Anion Gap 21 mmol/L (5-15) H Blood Urea Nitrogen 99 mg/dL (7-18) H Creatinine 3.7 MG/DL (0.55-1.30) H Estimat Glomerular Filtration Rate 11.6 mL/min (>60) Glucose Level 230 MG/DL (74-106) H Uric Acid 6.0 MG/DL (2.6-7.2) Calcium Level 9.0 MG/DL (8.5-10.1) Phosphorus Level 7.4 MG/DL (2.5-4.9) H Magnesium Level 2.2 MG/DL (1.8-2.4) Total Bilirubin 0.4 MG/DL (0.2-1.0) Gamma Glutamyl Transpeptidase 99 U/L (5-85) H Aspartate Amino Transf (AST/SGOT) 39 U/L (15-37) H Alanine Aminotransferase (ALT/SGPT) 99 U/L (12-78) H Alkaline Phosphatase 118 U/L (46-116) H C-Reactive Protein, Quantitative 33.5 mg/dL (0.00-0.90) H Pro-B-Type Natriuretic Peptide 80187 pg/mL (0-125) H Total Protein 6.6 G/DL (6.4-8.2) Albumin 1.8 G/DL (3.4-5.0) L Globulin 4.8 g/dL Albumin/Globulin Ratio 0.4 (1.0-2.7) L Thyroid Stimulating Hormone (TSH) 2.131 uiU/mL (0.358-3.740) Plan Problems: (1) Acute on chronic systolic (congestive) heart failure (2) CO2 retention (3) BORIS (acute kidney injury) (4) Shock liver Assessment & Plan: Hypotensive septic acute elevation in LFTs AST ALT thousands alk phos elevated. Likely shock from hypotension and acute episode. Labs trending down. IV fluid hydration. No acute intervention. Hold on imaging. Line reviewed. No bleeding noted. All 3 ports functional. Chest x-ray reviewed. Drop in hemoglobin unlikely related to line. Will monitor. Trend labs. Transfuse PRN. And are improvement in position of previously malpositioned endotracheal tube, tip now projecting 1-2 cm above the garrett. Interim placement of an orogastric tube, tip of which projects beyond the edge of the image, presumably well within the stomach. Interim placement of a left subclavian central venous catheter, tip of which projects at the level of the innominate venous confluence. No pneumothorax. Bilateral infiltrates are again demonstrated, unchanged. Impression: Improved and now satisfactory position of endotracheal tube Interim left subclavian central venous catheter placement, no radiographically evident complication Interim orogastric intubation, apparently satisfactory Unchanged bilateral infiltrates (5) Atrial fibrillation (6) Diabetes mellitus (7) CHF (congestive heart failure) (8) Hypothyroidism Assessment & Plan: DAILY ESTIMATED NEEDS: Needs based on Critical care 54kg abw 22-30 kcals/kg 3646-9248 total kcals 1.25-2 g protein/kg 68-108 g total protein 20-25 mL/kg 2532-4206 total fluid mLs NUTRITION DIAGNOSIS: Swallowing difficulty r/t resp status as evidenced by pt adm w/ covid 19 ++, on bipap, now s/p code blue, intubated, on OGT feeds. CURRENT TF:VITAL AF 1.2 @ 55ml/hr x22 hrs ENTERAL NUTRITION RECOMMENDATIONS: VITAL AF 1.2 @ 55ml/hr x 22 hrs to provide 1210, 1452kcal, 91g prot, 981ml free water * Maintain current TF * Hold 1 hr before and after Synthroid * HOB over 30 degrees/ water flush per MD If renal fxn cont to worsen (creat 3.2 w/ phos 6.1 on 01/12) -> rec TF change to Nepro @ goal rate of 35ml/hr x 22 hrs to provide 770ml, 1386kcal, 62g prot (1.15g/kg), 560ml free water ADDITIONAL RECOMMENDATIONS: 1) Maintain calibrated bed scale wts daily 2) Monitor renal fxn and lytes, need for renal TF (creat worsening 3.2, phos 6.1) 3) Skin integrity: TF @ goal provides 100% RDI Odell BID 4) Monitor BGs, need for additional hypoglycemics (9) Chronic respiratory failure Assessment & Plan: Intubated intensive care unit weaning vent. ET tube in place. Chest x-ray reviewed. (10) History of hypertension (11) 2019 novel coronavirus detected Assessment & Plan: COVID positive as per ID and pulmonology appreciate input and care. Continue vent support wean as tolerated. (12) Acute respiratory failure due to COVID-19 Satinder Olivera Jan 14, 2020 11:54
--- NOTE | 2020-01-14 12:00 | NUR ---
NURSE NOTES: Dr. Graves is at the nurse's station. MD updated on pt's current status, and orders noted for repeat chest xray, ABGs, and labs including CBC/CMP/Mag/Phos for tomorrow AM. VS remain in stable condition while pt remains on Cardizem drip at 10mg/hr to maintain HR below 100. Pt was cleaned, gown/bed linens were changed. Pt was repositioned for comfort; bilateral upper extremities elevated on pillows.
[2020-01-14] MEDS: Renvela 800mg Pkt NG SCH ×2 (12:45→17:43)
--- NOTE | 2020-01-14 12:50 | NUR ---
HAND-OFF: Report given to Kari JOHNSON. VS remain stable. Endorsed plan of care.
--- NOTE | 2020-01-14 13:00 | NUR ---
NURSE NOTES: Patient received from ALEX Hernandez. Patient is noted to be comatose with a hypoactive gag reflex and does not withdraw to pain. Patient is orally intubated, 7.5 ETT, 23cm @ the lip line with ventilator settings: AC 16 TV 600 FiO2 100% PEEP 5. Afib on cardiac rn. Left Subclavian TLC running Cardizem @ 10ml/hr and NS @100ml/hr. OGT noted with tube feeds, running Nepro @ goal rate of 40ml/hr. Kelsey intact, draining to urometer. Rectal tube intact, draining to collection bag. Bilateral upper extremities noted with weeping edema and ecchymosis, bilateral lower extremities edema. patient on P200 mattress. Bed locked and in lowest position with call light within reach. Will resume plan of care.
[2020-01-14] MEDS ORDERED: Lidocaine 1% Plain 30 ml INJ PRN ×2 (13:01→13:41)
[2020-01-14] MEDS ORDERED: Heparin1,000 units/500ml Premix(Conc:2 units/ml) IV PRN (13:01)
[2020-01-14] MEDS ORDERED: Heparin1,000 units/500ml Premix(Conc:2 units/ml) INJ PRN (13:40)
--- NOTE | 2020-01-14 14:00 | NUR ---
NURSE NOTES: Sputum culture collected and sent down to the lab.
--- NOTE | 2020-01-14 14:04 | Nephrology Progress Note ---
Assessment/Plan Problem List: (1) BORIS (acute kidney injury) (2) 2019 novel coronavirus detected (3) Hypothyroidism (4) Diabetes mellitus (5) Atrial fibrillation (6) Shock liver Assessment 85-year-old female admitted 5 days ago, at the time serum creatinine was 0.9 and today the serum creatinine is 1.4, most likely BORIS Hypernatremia secondary to free water deficit Prerenal azotemia COVID-19 virus detected Acute on chronic systolic congestive heart failure Atrial fibrillation Diabetes mellitus Hypothyroidism Hypertension Acute on chronic respiratory failure Plan January 13: Creatinine rising. Other labs and medication reviewed. Patient intubated. Patient full code. Consent for dialysis catheter is obtained. Will order dialysis after insertion of the non-tunneled dialysis catheter. Discussed with ALEX Hernandez. January 12: Serum creatinine rising. Patient was transfused. Remains full code. Remains intubated on ventilator. Will get consent for placement of non- tunneled dialysis catheter. Further worsening renal parameters may lead to the need for dialysis treatment. Per orders. January 11: Labs reviewed. Serum creatinine higher. Hemoglobin lower. Transfusion 2 units packed RBCs today. Continue to monitor renal parameters. Avoid nephrotoxic's. January 10: Labs reviewed. Serum creatinine 2.5. Liver enzymes are lowering. Remains full code. Remains intubated. Electrolyte abnormalities addressed. Continue per consultants. January 09: Lab reviewed. Serum creatinine lower at 2.6. Liver enzymes are lowering. Patient remains full code and remains intubated. Continue current management. Continue to follow renal parameters. Continue per consultants. Start Cardizem 30 mg every 8 hours via NG tube for elevated blood pressure January 08: Lab reviewed. Serum creatinine 2.8. LFTs improving. Remains intubated. Remains full code. Continue per consultants. Continue to monitor renal parameters. Avoid nephrotoxic's as possible. January 07: Labs reviewed. Serum creatinine robby to 2.9. Liver enzymes are improving. Patient off pressors. Patient full code. Patient intubated on ventilator. Continue to monitor renal parameters. IV fluid changed to normal saline. Continue per consultants. Anemia work-up initiated, iron panel B12 and folate level ordered. January 06: Labs reviewed. Serum creatinine up to 2.6. Medications reviewed. Continue to follow renal parameters and electrolytes. Continue to monitor liver enzymes. Allopurinol for high uric acid given. Discussed with RN. January 05: Blood pressure stable off pressors. Continue IV fluids. Monitor renal parameters. Monitor liver function tests. Hold oral Synthroid at this time. Continue treatment for sepsis and COVID-19 infection IV fluids Keep the blood pressure over 100 systolic Monitor renal parameters and electrolytes Monitor liver function tests Avoid nephrotoxic's as possible Urine studies Digoxin level Thyroid function tests Per orders Subjective ROS Limited/Unobtainable: Yes Objective Objective Last 24 Hour Vital Signs Date Time Temp Pulse Resp B/P (MAP) Pulse Ox O2 Delivery O2 Flow Rate FiO2 01/14/20 13:00 81 18 129/56 (80) 94 01/14/20 12:00 100 01/14/20 12:00 98.8 83 19 126/47 (73) 94 01/14/20 12:00 83 01/14/20 12:00 Mechanical Ventilator Mechanical Ventilator Mechanical Ventilator 01/14/20 11:00 84 22 100 01/14/20 11:00 86 20 122/44 (70) 94 01/14/20 10:00 86 25 124/52 (76) 92 01/14/20 09:30 82 25 128/54 (78) 93 01/14/20 09:00 81 22 134/55 (81) 93 01/14/20 08:00 83 01/14/20 08:00 100 01/14/20 08:00 Mechanical Ventilator Mechanical Ventilator Mechanical Ventilator 01/14/20 08:00 98.7 86 24 126/52 (76) 93 01/14/20 07:00 83 24 129/55 (79) 93 01/14/20 07:00 83 20 100 01/14/20 06:00 85 21 131/50 (77) 92 01/14/20 05:00 87 23 129/49 (75) 91 01/14/20 04:00 Mechanical Ventilator Mechanical Ventilator Mechanical Ventilator 01/14/20 04:00 100 01/14/20 04:00 98.4 85 23 138/52 (80) 90 01/14/20 03:07 91 01/14/20 03:00 85 27 139/66 (90) 90 01/14/20 02:58 97 26 100 01/14/20 02:00 86 27 143/53 (83) 91 01/14/20 01:00 89 23 148/65 (92) 91 01/14/20 00:00 100 01/14/20 00:00 Mechanical Ventilator Mechanical Ventilator Mechanical Ventilator 01/14/20 00:00 98.4 89 28 148/49 (82) 83 01/13/20 23:14 87 01/13/20 23:00 93 24 141/55 (83) 92 01/13/20 22:43 95 25 100 01/13/20 22:00 91 19 145/64 (91) 93 01/13/20 21:00 93 18 144/52 (82) 92 01/13/20 20:00 99.2 96 25 140/44 (76) 92 01/13/20 20:00 Mechanical Ventilator Mechanical Ventilator Mechanical Ventilator 01/13/20 20:00 100 01/13/20 19:31 104 01/13/20 19:10 97 22 100 01/13/20 19:00 94 27 161/50 (87) 91 01/13/20 18:00 99.8 88 27 148/58 (88) 93 01/13/20 17:00 88 20 159/60 (93) 91 01/13/20 16:00 93 29 138/49 (78) 94 01/13/20 16:00 78 26 138/48 (78) 94 01/13/20 16:00 90 01/13/20 16:00 85 01/13/20 16:00 Mechanical Ventilator Mechanical Ventilator 01/13/20 15:45 91 27 100 01/13/20 15:00 93 29 138/48 (78) 93 Intake and Output 01/13/20 01/14/20 19:00 07:00 Intake Total 2234.17 ml 2168.163 ml Output Total 58 ml 165 ml Balance 2176.17 ml 2003.163 ml Free Water 60 ml 90 ml IV Total 1484.17 ml 1553.163 ml Tube Feeding 660 ml 495 ml Other 30 ml 30 ml Output Urine Total 58 ml 65 ml Stool Total 100 ml Laboratory Tests 01/14/20 03:45: White Blood Count 37.6*H, Red Blood Count 3.98L, Hemoglobin 10.3L, Hematocrit 33.8L, Mean Corpuscular Volume 85, Mean Corpuscular Hemoglobin 25.8L, Mean Corpuscular Hemoglobin Concent 30.4L, Red Cell Distribution Width 16.7H, Platelet Count 317, Mean Platelet Volume 6.0L, Neutrophils (%) (Auto) , Lymphocytes (%) (Auto) , Monocytes (%) (Auto) , Eosinophils (%) (Auto) , Basophils (%) (Auto) , Differential Total Cells Counted 100, Neutrophils % (Manual) 95H, Lymphocytes % (Manual) 1L, Monocytes % (Manual) 3, Eosinophils % (Manual) 0, Basophils % (Manual) 0, Band Neutrophils 1, Platelet Estimate Adequate, Platelet Morphology Normal, Hypochromasia 1+, Anisocytosis 1+, Eryt hrocyte Sedimentation Rate 76H, Prothrombin Time 11.7H, Prothromb Time International Ratio 1.1, Activated Partial Thromboplast Time 27, Sodium Level 138, Potassium Level 5.4H, Chloride Level 104, Carbon Dioxide Level 13L, Anion Gap 21H, Blood Urea Nitrogen 99H, Creatinine 3.7H, Estimat Glomerular Filtration Rate 11.6, Glucose Level 230H, Uric Acid 6.0, Calcium Level 9.0, Phosphorus Level 7.4H, Magnesium Level 2.2, Total Bilirubin 0.4, Gamma Glutamyl Transpeptidase 99H, Aspartate Amino Transf (AST/SGOT) 39H, Alanine Aminotransferase (ALT/SGPT) 99H, Alkaline Phosphatase 118H, C-Reactive Protein, Quantitative 33.5H, Pro-B-Type Natriuretic Peptide [id number], Total Protein 6.6, Albumin 1.8L, Globulin 4.8, Albumin/Globulin Ratio 0.4L, Thyroid Stimulating Hormone (TSH) 2.131 Height (Feet): 5 Height (Inches): 2.00 Weight (Pounds): 155 General Appearance: no apparent distress EENT: other - Intubated on ventilator Cardiovascular: normal rate Respiratory/Chest: decreased breath sounds Abdomen: distended Naun Mandel MD Jan 14, 2020 14:04
--- NOTE | 2020-01-14 16:00 | NUR ---
NURSE NOTES: Radiology techs at bedside setting up for Patrick Catheter placement. Consent in the chart.
--- NOTE | 2020-01-14 16:38 | Internal Med Progress Note ---
Subjective Physician Name Fernando Peguero Attending Physician Fernando Peguero MD Current Medications Medications (Trade) Dose Ordered Sig/Brett Route PRN Reason Start Time Stop Time Status Last Admin Dose Admin Acetaminophen (Tylenol) 650 mg Q4H PRN ORAL FEVER 01/01/20 07:00 01/31/20 06:59 01/09/20 22:58 Acetaminophen (Tylenol) 650 mg Q4H PRN RECTAL Temp >100.5 01/03/20 09:30 02/02/20 09:29 01/03/20 12:18 Albuterol/ Ipratropium (Combivent Respimat) 1 puff Q4H PRN INH Shortness of Breath 01/05/20 20:00 02/04/20 19:59 Allopurinol (allopurinoL) 300 mg DAILY NG 01/07/20 10:45 02/06/20 10:44 01/14/20 08:33 Chlorhexidine Gluconate (Silvia-Hex 2%) 1 applic DAILY@2000 TOPIC 01/07/20 20:00 04/06/20 19:59 01/13/20 20:06 Dextrose (Dextrose 50%) 25 ml Q30M PRN IV Hypoglycemia 01/01/20 08:45 03/31/20 08:44 Dextrose (Dextrose 50%) 50 ml Q30M PRN IV Hypoglycemia 01/01/20 08:45 03/31/20 08:44 Diltiazem HCl 125 ml @ 0 mls/hr Q24H IVPB 01/14/20 07:42 01/15/20 07:41 01/14/20 08:32 Diltiazem HCl (Cardizem) 15 mg Q12H PRN IVP For High Blood Pressure 01/03/20 07:00 02/02/20 06:59 Heparin Sodium (Porcine) (Heparin 5000 units/ml) 5,000 units EVERY 12 HOURS SUBQ 01/01/20 09:00 02/15/20 08:59 01/13/20 08:58 Heparin Sodium/ Sodium Chloride (Heparin 1000 units/500ml Premix) 1,000 unit ONCE PRN INJ PROCEDURE 01/14/20 13:40 01/14/20 23:59 Heparin Sodium/ Sodium Chloride (Heparin 1000 units/500ml Premix) 1,000 unit ONCE PRN IV PROCEDURE 01/14/20 13:01 01/14/20 23:59 Insulin Aspart (NovoLOG) Q6HR SUBQ 01/09/20 00:00 03/31/20 11:29 01/14/20 13:20 Levothyroxine Sodium (Synthroid) 200 mcg DAILY@0630 ORAL 01/12/20 06:30 02/11/20 06:29 01/14/20 05:50 Lidocaine HCl (Xylocaine 1% 30ml) 30 ml ONCE PRN INJ procedure 01/14/20 13:01 01/14/20 23:59 Lidocaine HCl (Xylocaine 1% 30ml) 30 ml ONCE PRN INJ PROCEDURE 01/14/20 13:41 01/14/20 23:59 Linezolid 300 ml @ 300 mls/hr Q12HR IVPB 01/07/20 21:00 01/14/20 20:59 01/14/20 08:33 Lorazepam (Ativan 2mg/ml 1ml) 2 mg Q2H PRN IV For Anxiety 01/09/20 23:45 01/16/20 23:44 01/10/20 21:38 Meropenem 500 mg/ Sodium Chloride 55 ml @ 110 mls/hr Q12HR@0100,1300 IVPB 01/13/20 13:00 01/18/20 12:59 01/14/20 12:45 Metoclopramide HCl (Reglan) 10 mg Q6H PRN IVP Nausea & Vomiting 01/11/20 12:15 02/10/20 12:14 01/13/20 06:16 Morphine Sulfate (Morphine Sulfate) 4 mg Q4H PRN IVP For Pain 01/09/20 23:45 01/16/20 23:44 01/09/20 23:50 Ondansetron HCl (Zofran) 4 mg Q6H PRN IVP Nausea & Vomiting 01/01/20 07:00 01/31/20 06:59 Pantoprazole (Protonix) 40 mg Q12HR IV 01/05/20 21:00 02/04/20 08:59 01/14/20 08:32 Sevelamer Carbonate (Renvela) 800 mg THREE TIMES A DAY NG 01/14/20 13:00 04/13/20 12:59 01/14/20 12:45 Allergies: Coded Allergies: DOXYCYCLINE (Verified Allergy, Unknown, 04/04/19) RIFAMPIN (Verified Allergy, Unknown, 04/04/19) Subjective in respiratory isolation room, ICU, intubated remained on ventilation, WBC: 37.6, worsening renal function. Objective Last Vital Signs Date Time Temp Pulse Resp B/P (MAP) Pulse Ox O2 Delivery O2 Flow Rate FiO2 01/14/20 16:30 82 28 122/46 (71) 91 01/14/20 16:00 Mechanical Ventilator Mechanical Ventilator Mechanical Ventilator 01/14/20 16:00 100 01/14/20 16:00 99.2 Laboratory Tests Test 01/14/20 03:45 White Blood Count 37.6 K/UL (4.8-10.8) *H Red Blood Count 3.98 M/UL (4.20-5.40) L Hemoglobin 10.3 G/DL (12.0-16.0) L Hematocrit 33.8 % (37.0-47.0) L Mean Corpuscular Volume 85 FL (80-99) Mean Corpuscular Hemoglobin 25.8 PG (27.0-31.0) L Mean Corpuscular Hemoglobin Concent 30.4 G/DL (32.0-36.0) L Red Cell Distribution Width 16.7 % (11.6-14.8) H Platelet Count 317 K/UL (150-450) Mean Platelet Volume 6.0 FL (6.5-10.1) L Neutrophils (%) (Auto) % (45.0-75.0) Lymphocytes (%) (Auto) % (20.0-45.0) Monocytes (%) (Auto) % (1.0-10.0) Eosinophils (%) (Auto) % (0.0-3.0) Basophils (%) (Auto) % (0.0-2.0) Differential Total Cells Counted 100 Neutrophils % (Manual) 95 % (45-75) H Lymphocytes % (Manual) 1 % (20-45) L Monocytes % (Manual) 3 % (1-10) Eosinophils % (Manual) 0 % (0-3) Basophils % (Manual) 0 % (0-2) Band Neutrophils 1 % (0-8) Platelet Estimate Adequate Platelet Morphology Normal Hypochromasia 1+ Anisocytosis 1+ Erythrocyte Sedimentation Rate 76 MM/HR (0-30) H Prothrombin Time 11.7 SEC (9.30-11.50) H Prothromb Time International Ratio 1.1 (0.9-1.1) Activated Partial Thromboplast Time 27 SEC (23-33) Sodium Level 138 MMOL/L (136-145) Potassium Level 5.4 MMOL/L (3.5-5.1) H Chloride Level 104 MMOL/L (98-107) Carbon Dioxide Level 13 MMOL/L (21-32) L Anion Gap 21 mmol/L (5-15) H Blood Urea Nitrogen 99 mg/dL (7-18) H Creatinine 3.7 MG/DL (0.55-1.30) H Estimat Glomerular Filtration Rate 11.6 mL/min (>60) Glucose Level 230 MG/DL (74-106) H Uric Acid 6.0 MG/DL (2.6-7.2) Calcium Level 9.0 MG/DL (8.5-10.1) Phosphorus Level 7.4 MG/DL (2.5-4.9) H Magnesium Level 2.2 MG/DL (1.8-2.4) Total Bilirubin 0.4 MG/DL (0.2-1.0) Gamma Glutamyl Transpeptidase 99 U/L (5-85) H Aspartate Amino Transf (AST/SGOT) 39 U/L (15-37) H Alanine Aminotransferase (ALT/SGPT) 99 U/L (12-78) H Alkaline Phosphatase 118 U/L (46-116) H C-Reactive Protein, Quantitative 33.5 mg/dL (0.00-0.90) H Pro-B-Type Natriuretic Peptide 33621 pg/mL (0-125) H Total Protein 6.6 G/DL (6.4-8.2) Albumin 1.8 G/DL (3.4-5.0) L Globulin 4.8 g/dL Albumin/Globulin Ratio 0.4 (1.0-2.7) L Thyroid Stimulating Hormone (TSH) 2.131 uiU/mL (0.358-3.740) Microbiology Date/Time Source Procedure Growth Status 01/13/20 04:00 Stool Clostridium difficile Toxin Assay - Final Complete Intake and Output 01/13/20 01/14/20 19:00 07:00 Intake Total 2234.17 ml 2168.163 ml Output Total 58 ml 165 ml Balance 2176.17 ml 2003.163 ml Free Water 60 ml 90 ml IV Total 1484.17 ml 1553.163 ml Tube Feeding 660 ml 495 ml Other 30 ml 30 ml Output Urine Total 58 ml 65 ml Stool Total 100 ml Objective GENERAL: intubated, remained on ventilation. HEENT: Eyes, pupils equal and responsive to light and accommodation. ET tube, OG tube. NECK: Supple without lymphadenopathy. CHEST: mechanical breath sounds,Decreased breath sounds at bilateral bases, basilar rales. CARDIOVASCULAR: Regular rhythm and rate. S1, S2 normal without murmurs or gallops. ABDOMEN: Soft, nontender, and nondistended. Positive bowel sounds. obesity. EXTREMITIES: Negative for clubbing, cyanosis, or edema. GENITAL: Kelsey catheter. NEUROLOGIC: limited secondary to patient status, moving all extremities slowly. Assessment/Plan Assessment/Plan ASSESSMENT: This is an 84-year-old female with: 1. COVID-19 pneumonia 2.Acute respiratory failure. 3. Hypertension. 4. Atrial fibrillation. 5. Chronic obstructive pulmonary disease. 6. Coronary artery disease. 7. Congestive heart failure. 8. Diabetes type 2. 9. Hypothyroidism. 10. Hypercholesterolemia. 11. Rheumatoid arthritis. 12. Gastroesophageal reflux disease. 13. RADHA / BORIS 14. S/P cardiac arrest 01/05/20 TREATMENT: 1. COVID-19 positive/pneumonia. A Pulmonary consultation has been obtained with Dr. Ann-Marie Graves. 2. Hypertension. 3. Atrial fibrillation. Continue digoxin as above. 4. Chronic obstructive pulmonary disease. As above, a Pulmonary consultation has been obtained with Dr. Ann-Marie Graves. The patient is currently on albuterol nebulized q.4h. p..r.n. 5. Coronary disease/congestive heart failure. An echocardiogram is pending. A Cardiology consultation has been obtained with Dr. Gaming. 6. Diabetes type 2. NovoLog sliding scale has been instituted. 7. Hypothyroidism. Continue Synthroid as above. 8. Hypercholesterolemia. Continue atorvastatin as above. 9. Rheumatoid arthritis. 10. Gastroesophageal reflux disease. Continue Protonix as above. 11. Continue mech vent per pulmonary 12. Abx: Meropenem CODE STATUS: Full code DVT prophylaxis: Heparin subcu. consider dialysis cath placement for initiation of dialysis soon. Fernando Peguero MD Jan 14, 2020 16:38
--- NOTE | 2020-01-14 16:40 | NUR ---
NURSE NOTES: Called [facility] dialysis to schedule dialysis for today. Rt IJ Patrick catheter placed. Awaiting xray to confirm placement.
--- NOTE | 2020-01-14 17:41 | Cardiology Progress Note ---
Assessment/Plan Assessment/Plan paf now persistent afib pneumonia pulm htn 90's copd dm acute covid 19 infection diastolic failure cardiopulm arrest (pt was found off bipap) respiratory acidosis ARF abn lft probable shock liver imporved abn trop likey realted to cpr anoxic encephalopathy cxr personally reviewed has bilateral pulm infiltrates s/p remdezivir on empiric abx and steroids personally reviewed tele:afib on iv dilt hr controlled dig level ok will intermittently dose dig echo noted form a few days ago supportive care at this time not need pressror but diana be observed for need vent support heparin for dvt ppx in the settign of unstable renal function post arf remains critically ill and at risk of dying d/w psychology intern directives noted poa avaiaLBE Subjective Subjective remain on the vent not responsive per rn Objective Last 24 Hour Vital Signs Date Time Temp Pulse Resp B/P (MAP) Pulse Ox O2 Delivery O2 Flow Rate FiO2 01/14/20 17:00 79 27 116/53 (74) 92 01/14/20 16:30 82 28 122/46 (71) 91 01/14/20 16:00 Mechanical Ventilator Mechanical Ventilator Mechanical Ventilator 01/14/20 16:00 100 01/14/20 16:00 81 01/14/20 16:00 99.2 84 17 118/47 (70) 93 01/14/20 15:00 79 18 100 01/14/20 15:00 85 16 121/51 (74) 93 01/14/20 14:00 82 18 118/51 (73) 94 01/14/20 13:00 81 18 129/56 (80) 94 01/14/20 12:00 100 01/14/20 12:00 98.8 83 19 126/47 (73) 94 01/14/20 12:00 83 01/14/20 12:00 Mechanical Ventilator Mechanical Ventilator Mechanical Ventilator 01/14/20 11:00 84 22 100 01/14/20 11:00 86 20 122/44 (70) 94 01/14/20 10:00 86 25 124/52 (76) 92 01/14/20 09:30 82 25 128/54 (78) 93 01/14/20 09:00 81 22 134/55 (81) 93 01/14/20 08:00 83 01/14/20 08:00 100 01/14/20 08:00 Mechanical Ventilator Mechanical Ventilator Mechanical Ventilator 01/14/20 08:00 98.7 86 24 126/52 (76) 93 01/14/20 07:00 83 24 129/55 (79) 93 01/14/20 07:00 83 20 100 01/14/20 06:00 85 21 131/50 (77) 92 01/14/20 05:00 87 23 129/49 (75) 91 01/14/20 04:00 Mechanical Ventilator Mechanical Ventilator Mechanical Ventilator 01/14/20 04:00 100 01/14/20 04:00 98.4 85 23 138/52 (80) 90 01/14/20 03:07 91 01/14/20 03:00 85 27 139/66 (90) 90 01/14/20 02:58 97 26 100 01/14/20 02:00 86 27 143/53 (83) 91 01/14/20 01:00 89 23 148/65 (92) 91 01/14/20 00:00 100 01/14/20 00:00 Mechanical Ventilator Mechanical Ventilator Mechanical Ventilator 01/14/20 00:00 98.4 89 28 148/49 (82) 83 01/13/20 23:14 87 01/13/20 23:00 93 24 141/55 (83) 92 01/13/20 22:43 95 25 100 01/13/20 22:00 91 19 145/64 (91) 93 01/13/20 21:00 93 18 144/52 (82) 92 01/13/20 20:00 99.2 96 25 140/44 (76) 92 01/13/20 20:00 Mechanical Ventilator Mechanical Ventilator Mechanical Ventilator 01/13/20 20:00 100 01/13/20 19:31 104 01/13/20 19:10 97 22 100 01/13/20 19:00 94 27 161/50 (87) 91 01/13/20 18:00 99.8 88 27 148/58 (88) 93 Intake and Output 01/13/20 01/14/20 19:00 07:00 Intake Total 2234.17 ml 2168.163 ml Output Total 58 ml 165 ml Balance 2176.17 ml 2003.163 ml Free Water 60 ml 90 ml IV Total 1484.17 ml 1553.163 ml Tube Feeding 660 ml 495 ml Other 30 ml 30 ml Output Urine Total 58 ml 65 ml Stool Total 100 ml Laboratory Tests Test 01/14/20 03:45 01/14/20 17:30 White Blood Count 37.6 K/UL (4.8-10.8) *H Red Blood Count 3.98 M/UL (4.20-5.40) L Hemoglobin 10.3 G/DL (12.0-16.0) L Hematocrit 33.8 % (37.0-47.0) L Mean Corpuscular Volume 85 FL (80-99) Mean Corpuscular Hemoglobin 25.8 PG (27.0-31.0) L Mean Corpuscular Hemoglobin Concent 30.4 G/DL (32.0-36.0) L Red Cell Distribution Width 16.7 % (11.6-14.8) H Platelet Count 317 K/UL (150-450) Mean Platelet Volume 6.0 FL (6.5-10.1) L Neutrophils (%) (Auto) % (45.0-75.0) Lymphocytes (%) (Auto) % (20.0-45.0) Monocytes (%) (Auto) % (1.0-10.0) Eosinophils (%) (Auto) % (0.0-3.0) Basophils (%) (Auto) % (0.0-2.0) Differential Total Cells Counted 100 Neutrophils % (Manual) 95 % (45-75) H Lymphocytes % (Manual) 1 % (20-45) L Monocytes % (Manual) 3 % (1-10) Eosinophils % (Manual) 0 % (0-3) Basophils % (Manual) 0 % (0-2) Band Neutrophils 1 % (0-8) Platelet Estimate Adequate Platelet Morphology Normal Hypochromasia 1+ Anisocytosis 1+ Erythrocyte Sedimentation Rate 76 MM/HR (0-30) H Prothrombin Time 11.7 SEC (9.30-11.50) H Prothromb Time International Ratio 1.1 (0.9-1.1) Activated Partial Thromboplast Time 27 SEC (23-33) Sodium Level 138 MMOL/L (136-145) Potassium Level 5.4 MMOL/L (3.5-5.1) H Chloride Level 104 MMOL/L (98-107) Carbon Dioxide Level 13 MMOL/L (21-32) L Anion Gap 21 mmol/L (5-15) H Blood Urea Nitrogen 99 mg/dL (7-18) H Creatinine 3.7 MG/DL (0.55-1.30) H Estimat Glomerular Filtration Rate 11.6 mL/min (>60) Glucose Level 230 MG/DL (74-106) H Uric Acid 6.0 MG/DL (2.6-7.2) Calcium Level 9.0 MG/DL (8.5-10.1) Phosphorus Level 7.4 MG/DL (2.5-4.9) H Magnesium Level 2.2 MG/DL (1.8-2.4) Total Bilirubin 0.4 MG/DL (0.2-1.0) Gamma Glutamyl Transpeptidase 99 U/L (5-85) H Aspartate Amino Transf (AST/SGOT) 39 U/L (15-37) H Alanine Aminotransferase (ALT/SGPT) 99 U/L (12-78) H Alkaline Phosphatase 118 U/L (46-116) H C-Reactive Protein, Quantitative 33.5 mg/dL (0.00-0.90) H Pro-B-Type Natriuretic Peptide 72196 pg/mL (0-125) H Total Protein 6.6 G/DL (6.4-8.2) Albumin 1.8 G/DL (3.4-5.0) L Globulin 4.8 g/dL Albumin/Globulin Ratio 0.4 (1.0-2.7) L Thyroid Stimulating Hormone (TSH) 2.131 uiU/mL (0.358-3.740) POC Whole Blood Glucose 192 MG/DL (74-106) H Microbiology Date/Time Source Procedure Growth Status 01/13/20 04:00 Stool Clostridium difficile Toxin Assay - Final Complete Objective pt with covid exam deferred remain on the vent no communicative per rn sig secretion purulent not on pressor but is on iv dilt ETT at 23cm lip on ventilator AC 16 TV 600 FiO2 80% PEEP 5. BP 134/46 HR 79 Afib on monitor. Left Subclavian TLC running Cardizem @ 10ml/hr, NS @100ml/hr asymptomatic. OGT running Vital @30ml/hr. Kelsey draining scant yellow urine with sediment. patient with sacral redness covered with Optifoam, bilateral upper extremity weeping edema and ecchymosis, bilateral lower extremity edema. Reginaldo Gaming MD Jan 14, 2020 17:41
--- NOTE | 2020-01-14 17:42 | NUR ---
RADIOLOGY NOTE: RIJ NON TUNNELED DIALYSIS CATHETER PLACEMENT BY DR. WILNER VALENZUELA. FA
--- NOTE | 2020-01-14 17:49 | NUR ---
NURSE NOTES: Pt fully cleaned and linens changed. Oral care done. Pt continues to have thin bloody frothy secretions. Bite block in place to prevent pt from biting her tongue. Rectal tube in place; 100mL of green liquid noted. Pt remains on Cardizem @ 10ml/hr.
--- NOTE | 2020-01-14 18:03 | Brief Operative Note ---
Immediate Post Operative Note Operative Note Pre-op Diagnosis: needs dialysis access Procedure: R JONO napier Post-op Diagnosis: same as pre-op Findings: consistent w/pre-op dx studies Surgeon: Vahid Duran Anesthesia: local Specimen: none Complications: none Fluids: none Implant(s) used?: No Jeffrey Duran MD Jan 14, 2020 18:03
--- NOTE | 2020-01-14 18:11 | Diagnostic Imaging Report ---
Indication: Acute renal failure Technique: Procedure performed at bedside. Procedural timeout performed. Total sterile technique, including sterile probe cover and sterile gel, sterile gloves, hand hygiene, hat, mask, sterile gown, large sterile drape, and preparation with 2% chlorhexidine utilized. Local anesthesia with 1% lidocaine. Under real-time ultrasound guidance, puncture right internal jugular vein using 21-gauge micropuncture needle, passage 0.018 guidewire, insertion 5 Spanish micropuncture introducer,, passage 0.035 guidewire, over which was passed serial dilators and then a 13 Spanish 15 cm triple-lumen temporary dialysis catheter. Guidewire was removed. Catheter ports were aspirated and flushed. The catheter was fixed to the skin. Patient tolerated procedure well. A chest x-ray was obtained, documents catheter tip position at the innominate venous confluence. Comparison: 01/12/2020 Findings: As above Impression: Successful bedside placement of right transjugular temporary dialysis catheter, as described.
--- NOTE | 2020-01-14 18:15 | NUR ---
NURSE NOTES: Pt's O2sat has been steadily in the mid 80's (84-85%). FiO2 currently 100%. Will get ABG and report findings to MD.
--- NOTE | 2020-01-14 18:30 | NUR ---
NURSE NOTES: DAISY dialysis nurse, Tomy, at bedside, connecting pt to dialysis machine.
--- NOTE | 2020-01-14 19:28 | NUR ---
NURSE HAND-OFF REPORT: Latest Vital Signs: Temperature 99.2 , Pulse 97 , B/P 116 /46 , Respiratory Rate 27 , O2 SAT 84 , Mechanical Ventilator, FiO2 100% . Vital Sign Comment: EKG Rhythm: Atrial Fibrillation Rhythm change?: N MD Notified?: Response: Latest Shaw Fall Score: 70 Fall Risk: High Risk Safety Measures: Call light Within Reach, Bed Alarm Zone 2, Side Rails Side Rails x3, Bed position Low and Locked. Fall Precautions: Door Sign Report given to ALEX Flanagan.
--- NOTE | 2020-01-14 19:30 | NUR ---
NURSE NOTES: Received report from ALEX Pierce. The first HD is going on. IANaman PhamPatrick cath noted. Patient is comatose with a hypoactive gag reflex and does not withdraw to pain. Afib on cardiac surgeon. Patient is orally intubated. 7.5 ETT, 23cm @lipline. Settings: AC 16 TV 600 FiO2 100% PEEP 5. Left Subclavian TLC running Cardizem @ 10mcgs/hr. OGT tube feeds, Nepro @40ml/hr. Kelsey intact, draining to urometer. Rectal tube intact, draining to collection bag. Bilateral upper extremities weeping edema and ecchymosis and bilateral lower extremities edema noted. Patient is on P200 mattress. Safety measures observed and no acute distress noted. Will continue to monitor.
--- NOTE | 2020-01-14 20:00 | NUR ---
NURSE NOTES: Diltiazem gtt HOLD. BP 119/47. HD is going on. Pt is asymptomatic.
[2020-01-14] MEDS: Dyna-Hex 2% Top Sol 2oz TOPIC SCH (20:07)
--- NOTE | 2020-01-14 21:00 | NUR ---
NURSE NOTES: Diltiazem gtt HOLD. BP 117/43. HD is going on. Pt is asymptomatic.
--- NOTE | 2020-01-14 22:00 | NUR ---
NURSE NOTES: Diltiazem gtt HOLD. BP 112/39. HD is going on. Pt is asymptomatic.
[2020-01-14] MEDS ORDERED: Sterile Water Irrig 1000ml IRRIG ONE (22:21)
[2020-01-14] MEDS ORDERED: Tubing IV Secondary IV ONE (22:21)
[2020-01-14] MEDS ORDERED: NS 275ml ONE (22:21)
--- NOTE | 2020-01-14 23:00 | NUR ---
NURSE NOTES: HD completed. 2L OUT. Diltiazem gtt START with 10mcgs. BP 134/48. Pt is asymptomatic.
--- NOTE | 2020-01-14 23:30 | NUR ---
NURSE NOTES: Per ABG result, contacted Dr. Graves to receive new PEEP order. Currently PEEP 5, high 70s and low 80s. Will continue to monitor.
[2020-01-15] VITALS (36 sets, daily range): BP systolic 98–145; BP diastolic 37–75
--- NOTE | 2020-01-15 | NUR ---
NURSE NOTES: PT BP 119/44. Diltiazem gtt decreased to 5mcgs. Notified to lead java [email or web address] developer. RT is bedside to adjust mask. Will continue to monitor.
[2020-01-15] MEDS: NovoLOG Insulin Flexpen SUBQ SCH ×4 (00:14→17:57)
[2020-01-15] MEDS: Meropenem 500mg/NS 55ml IVPB SCH ×4 (00:17→13:37)
--- NOTE | 2020-01-15 02:00 | NUR ---
NURSE NOTES: PM care given. Turned and repositioned. Oral care provided. Changed soiled linens, changed dressing and chucks. Afebrile and VSS. Will continue to monitor.
--- NOTE | 2020-01-15 05:00 | NUR ---
NURSE NOTES: Due to Synthroid, stopped feeding.
[2020-01-15 05:14] LABS: HEMATOCRIT 29.2 % (37.0-47.0); MEAN CORPUSCULAR VOLUME 85 FL (80-99); PLATELET COUNT 213 K/UL (150-450); RED BLOOD COUNT 3.44 M/UL (4.20-5.40); RED CELL DISTRIBUTION WIDTH 16.8 % (11.6-14.8)
[2020-01-15 05:34] LABS: WHITE BLOOD COUNT 39.6 K/UL (4.8-10.8)
[2020-01-15 05:51] LABS: ALBUMIN/GLOBULIN RATIO 0.5 (1.0-2.7); BILIRUBIN,TOTAL 0.4 MG/DL (0.2-1.0); CALCIUM 8.7 MG/DL (8.5-10.1); PHOSPHORUS 6.2 MG/DL (2.5-4.9); POTASSIUM 4.3 MMOL/L (3.5-5.1)
--- NOTE | 2020-01-15 06:00 | NUR ---
NURSE NOTES: Received PEEP [address] Graves.
--- NOTE | 2020-01-15 07:00 | NUR ---
HAND-OFF: Report given to ALEX Cronin. Endorsed POC.
--- NOTE | 2020-01-15 07:55 | NUR ---
NURSE NOTES: Dr. Yepez called to notify of white blood cell count increase to 39.6. no orders given at this time.
[2020-01-15] MEDS ORDERED: dilTIAZem Premix 125mg/125ml 125 ML IVPB SCH (08:15)
--- NOTE | 2020-01-15 08:18 | Diagnostic Imaging Report ---
EXAM: XR Chest, 1 View CLINICAL HISTORY: DYSPNEA TECHNIQUE: Frontal view of the chest. COMPARISON: 01/12/20 FINDINGS: Lungs: There are worsening moderately consolidating bilateral lower lobe and right middle lobe infiltrates with unchanged bilateral upper lobe infiltrates. Pleural space: Unremarkable. No pneumothorax. Heart: Unremarkable. No cardiomegaly. Mediastinum: Unremarkable. Bones/joints: Unremarkable. Tubes, lines and devices: There is an endotracheal tube, NG tube and right IJ centimeters catheter in unchanged position. IMPRESSION: There are worsening moderately consolidating bilateral lower lobe and right middle lobe infiltrates with unchanged bilateral upper lobe infiltrates.
[2020-01-15] MEDS: Pantoprazole Inj IV SCH ×2 (08:46→20:40)
[2020-01-15] MEDS: Renvela 800mg Pkt NG SCH ×3 (08:46→17:39)
[2020-01-15] MEDS: Heparin 5000 units/ml inj SUBQ SCH (08:47)
--- NOTE | 2020-01-15 09:24 | Surgery Progress Note ---
Surgery Progress Note Subjective Procedure Performed left subclavian central venous catheter insertion Additional Comments ill appearing Objective Last 24 Hour Vital Signs Date Time Temp Pulse Resp B/P (MAP) Pulse Ox O2 Delivery O2 Flow Rate FiO2 01/15/20 07:28 92 26 100 01/15/20 07:00 22 120/49 (72) 94 01/15/20 06:00 96 24 125/46 (72) 95 01/15/20 05:00 95 22 124/48 (73) 94 01/15/20 04:00 91 01/15/20 04:00 100 01/15/20 04:00 Mechanical Ventilator Mechanical Ventilator Mechanical Ventilator 01/15/20 04:00 91 20 127/37 (67) 96 01/15/20 03:49 92 27 100 01/15/20 03:00 97 30 133/49 (77) 93 01/15/20 02:00 96 25 141/51 (81) 92 01/15/20 01:00 95 29 140/52 (81) 89 01/15/20 00:00 99 26 119/44 (69) 89 01/15/20 00:00 Mechanical Ventilator Mechanical Ventilator Mechanical Ventilator 01/14/20 23:23 92 26 100 01/14/20 23:00 94 27 134/48 (76) 87 01/14/20 22:00 92 25 112/39 (63) 86 01/14/20 21:00 91 24 117/43 (67) 88 01/14/20 20:00 95 01/14/20 20:00 99.5 95 25 119/47 (71) 87 01/14/20 20:00 Mechanical Ventilator Mechanical Ventilator Mechanical Ventilator 01/14/20 20:00 100 01/14/20 19:29 81 20 100 01/14/20 19:10 97 27 116/46 (69) 84 01/14/20 19:00 89 24 111/49 (69) 78 01/14/20 18:00 90 26 128/45 (72) 84 01/14/20 17:00 79 27 116/53 (74) 92 01/14/20 16:30 82 28 122/46 (71) 91 01/14/20 16:00 Mechanical Ventilator Mechanical Ventilator Mechanical Ventilator 01/14/20 16:00 100 01/14/20 16:00 81 01/14/20 16:00 99.2 84 17 118/47 (70) 93 10/2/20 15:00 79 18 100 01/14/20 15:00 85 16 121/51 (74) 93 01/14/20 14:00 82 18 118/51 (73) 94 01/14/20 13:00 81 18 129/56 (80) 94 01/14/20 12:00 100 01/14/20 12:00 98.8 83 19 126/47 (73) 94 01/14/20 12:00 83 01/14/20 12:00 Mechanical Ventilator Mechanical Ventilator Mechanical Ventilator 01/14/20 11:00 84 22 100 01/14/20 11:00 86 20 122/44 (70) 94 01/14/20 10:00 86 25 124/52 (76) 92 01/14/20 09:30 82 25 128/54 (78) 93 I&O Intake and Output 01/14/20 01/15/20 19:00 07:00 Intake Total 1778.33 ml 580 ml Output Total 135 ml 2000 ml Balance 1643.33 ml -1420 ml Free Water 60 ml IV Total 1283.33 ml 40 ml Tube Feeding 495 ml 480 ml Output Urine Total 35 ml 0 ml Stool Total 100 ml Hemodialysis UF 2000 ml Dressing: other Wound: other Cardiovascular: RSR Respiratory: decreased breath sounds Abdomen: soft, non-tender, present bowel sounds Extremities: no tenderness, no cyanosis Laboratory Tests Test 01/14/20 17:30 01/14/20 22:35 01/15/20 04:20 01/15/20 08:41 POC Whole Blood Glucose 192 MG/DL (74-106) H Arterial Blood pH 7.212 (7.350-7.450) 7.184 (7.350-7.450) Arterial Blood Partial Pressure CO2 54.0 mmHg (35.0-45.0) H 53.0 mmHg (35.0-45.0) H Arterial Blood Partial Pressure O2 49.2 mmHg (75.0-100.0) 70.3 mmHg (75.0-100.0) L Arterial Blood HCO3 21.2 mmol/L (22.0-26.0) L 19.5 mmol/L (22.0-26.0) L Arterial Blood Oxygen Saturation 83.9 % (95-100) *L 92.9 % (95-100) L Arterial Blood Base Excess -6.7 (-2-2) L -8.6 (-2-2) L Chester Test Positive Positive White Blood Count 39.6 K/UL (4.8-10.8) *H Red Blood Count 3.44 M/UL (4.20-5.40) L Hemoglobin 9.0 G/DL (12.0-16.0) L Hematocrit 29.2 % (37.0-47.0) L Mean Corpuscular Volume 85 FL (80-99) Mean Corpuscular Hemoglobin 26.2 PG (27.0-31.0) L Mean Corpuscular Hemoglobin Concent 30.8 G/DL (32.0-36.0) L Red Cell Distribution Width 16.8 % (11.6-14.8) H Platelet Count 213 K/UL (150-450) Mean Platelet Volume 6.3 FL (6.5-10.1) L Neutrophils (%) (Auto) % (45.0-75.0) Lymphocytes (%) (Auto) % (20.0-45.0) Monocytes (%) (Auto) % (1.0-10.0) Eosinophils (%) (Auto) % (0.0-3.0) Basophils (%) (Auto) % (0.0-2.0) Differential Total Cells Counted 100 Neutrophils % (Manual) 89 % (45-75) H Lymphocytes % (Manual) 0 % (20-45) L Monocytes % (Manual) 1 % (1-10) Eosinophils % (Manual) 0 % (0-3) Basophils % (Manual) 0 % (0-2) Metamyelocytes % 1 % (0-0) H Myelocytes % 2 % (0-0) H Band Neutrophils 7 % (0-8) Platelet Estimate Adequate Platelet Morphology Normal Hypochromasia 1+ Sodium Level 139 MMOL/L (136-145) Potassium Level 4.3 MMOL/L (3.5-5.1) Chloride Level 103 MMOL/L (98-107) Carbon Dioxide Level 21 MMOL/L (21-32) Anion Gap 15 mmol/L (5-15) Blood Urea Nitrogen 68 mg/dL (7-18) H Creatinine 3.0 MG/DL (0.55-1.30) H Estimat Glomerular Filtration Rate 14.8 mL/min (>60) Glucose Level 193 MG/DL (74-106) H Calcium Level 8.7 MG/DL (8.5-10.1) Phosphorus Level 6.2 MG/DL (2.5-4.9) H Magnesium Level 2.1 MG/DL (1.8-2.4) Total Bilirubin 0.4 MG/DL (0.2-1.0) Aspartate Amino Transf (AST/SGOT) 37 U/L (15-37) Alanine Aminotransferase (ALT/SGPT) 66 U/L (12-78) Alkaline Phosphatase 109 U/L (46-116) Total Protein 6.0 G/DL (6.4-8.2) L Albumin 2.0 G/DL (3.4-5.0) L Globulin 4.0 g/dL Albumin/Globulin Ratio 0.5 (1.0-2.7) L Plan Problems: (1) Acute on chronic systolic (congestive) heart failure (2) CO2 retention (3) BORIS (acute kidney injury) (4) Shock liver Assessment & Plan: Hypotensive septic acute elevation in LFTs AST ALT thousands alk phos elevated. Likely shock from hypotension and acute episode. Labs trending down. IV fluid hydration. No acute intervention. Hold on imaging. Line reviewed. No bleeding noted. All 3 ports functional. Chest x-ray revie wed. Drop in hemoglobin unlikely related to line. Will monitor. Trend labs. Transfuse PRN. And are improvement in position of previously malpositioned endotracheal tube, tip now projecting 1-2 cm above the garrett. Interim placement of an orogastric tube, tip of which projects beyond the edge of the image, presumably well within the stomach. Interim placement of a left subclavian central venous catheter, tip of which projects at the level of the innominate venous confluence. No pneumothorax. Bilateral infiltrates are again demonstrated, unchanged. Impression: Improved and now satisfactory position of endotracheal tube Interim left subclavian central venous catheter placement, no radiographically evident complication Interim orogastric intubation, apparently satisfactory Unchanged bilateral infiltrates (5) Atrial fibrillation (6) Diabetes mellitus (7) CHF (congestive heart failure) (8) Hypothyroidism Assessment & Plan: DAILY ESTIMATED NEEDS: Needs based on Critical care 54kg abw 22-30 kcals/kg [id number] total kcals 1.25-2 g protein/kg 68-108 g total protein 20-25 mL/kg 4696-5009 total fluid mLs NUTRITION DIAGNOSIS: Swallowing difficulty r/t resp status as evidenced by pt adm w/ covid 19 ++, on bipap, now s/p code blue, intubated, on OGT feeds. CURRENT TF:VITAL AF 1.2 @ 55ml/hr x22 hrs ENTERAL NUTRITION RECOMMENDATIONS: VITAL AF 1.2 @ 55ml/hr x 22 hrs to provide 1210, 1452kcal, 91g prot, 981ml free water * Maintain current TF * Hold 1 hr before and after Synthroid * HOB over 30 degrees/ water flush per MD If renal fxn cont to worsen (creat 3.2 w/ phos 6.1 on 01/12) -> rec TF change to Nepro @ goal rate of 35ml/hr x 22 hrs to provide 770ml, 1386kcal, 62g prot (1.15g/kg), 560ml free water ADDITIONAL RECOMMENDATIONS: 1) Maintain calibrated bed scale wts daily 2) Monitor renal fxn and lytes, need for renal TF (creat worsening 3.2, phos 6.1) 3) Skin integrity: TF @ goal provides 100% RDI Odell BID 4) Monitor BGs, need for additional hypoglycemics (9) Chronic respiratory failure Assessment & Plan: Intubated intensive care unit weaning vent. ET tube in place. Chest x-ray reviewed. (10) History of hypertension (11) 2019 novel coronavirus detected Assessment & Plan: COVID positive as per ID and pulmonology appreciate input and care. Continue vent support wean as tolerated. (12) Acute respiratory failure due to COVID-19 Satinder Olivera Jan 15, 2020 09:24
--- NOTE | 2020-01-15 09:38 | Infectious Diseases Prog Note ---
Assessment/Plan Assessment: Asystole arrest Sepsis COVID19 pneumonia Acute hypoxic resp failure sp NRB> Bipap 100% Fio2> VDRF 100% -01/01 CXR: Vascular congestion/developing failure and bilateral patchy infiltrates, slightly worse since prior exam. Small bilateral pleural effusions.Prominent mediastinum likely due to tortuous/ectatic thoracic aorta. -12/31 CXR: Centrally predominant interstitial and airspace opacities, pulmonary edema most likely. Cardiomegaly. Fever; SP No leukocytosis Dm2 COPD HTN former smoker CAD CHF RA GERD hypothyroidism Afib [place] resident ([facility]) Plan: - Repeat Cultures - Continue Meropenem #4 - Cont Linazolid #8 - Start Micafungin #1 - D/C Zosyn #6 - 01/09/20 SP Remdesivir #5 per [facility] criteria- patient cannot provide consent; Benefits outweigh risks. - 01/07/20 Ceftriaxone #7 - 12/31 SP Cefepime x1, Flagyl x1 -f/u cx -Monitor CBC/CMP, temperatures -ETT/ICU care D/w RN Thank you for consulting [facility]. Will continue to follow along with you. Subjective Allergies: Coded Allergies: DOXYCYCLINE (Verified Allergy, Unknown, 04/04/19) RIFAMPIN (Verified Allergy, Unknown, 04/04/19) Afebrile On Vent 100% O2 WBCs up to 39 Objective Last 24 Hour Vital Signs Date Time Temp Pulse Resp B/P (MAP) Pulse Ox O2 Delivery O2 Flow Rate FiO2 01/15/20 08:00 100 01/15/20 07:28 92 26 100 01/15/20 07:00 22 120/49 (72) 94 01/15/20 06:00 96 24 125/46 (72) 95 01/15/20 05:00 95 22 124/48 (73) 94 01/15/20 04:00 91 01/15/20 04:00 100 01/15/20 04:00 Mechanical Ventilator Mechanical Ventilator Mechanical Ventilator 01/15/20 04:00 91 20 127/37 (67) 96 01/15/20 03:49 92 27 100 01/15/20 03:00 97 30 133/49 (77) 93 01/15/20 02:00 96 25 141/51 (81) 92 01/15/20 01:00 95 29 140/52 (81) 89 01/15/20 00:00 99 26 119/44 (69) 89 01/15/20 00:00 Mechanical Ventilator Mechanical Ventilator Mechanical Ventilator 01/14/20 23:23 92 26 100 01/14/20 23:00 94 27 134/48 (76) 87 01/14/20 22:00 92 25 112/39 (63) 86 01/14/20 21:00 91 24 117/43 (67) 88 01/14/20 20:00 95 01/14/20 20:00 99.5 95 25 119/47 (71) 87 01/14/20 20:00 Mechanical Ventilator Mechanical Ventilator Mechanical Ventilator 01/14/20 20:00 100 01/14/20 19:29 81 20 100 01/14/20 19:10 97 27 116/46 (69) 84 01/14/20 19:00 89 24 111/49 (69) 78 01/14/20 18:00 90 26 128/45 (72) 84 01/14/20 17:00 79 27 116/53 (74) 92 01/14/20 16:30 82 28 122/46 (71) 91 01/14/20 16:00 Mechanical Ventilator Mechanical Ventilator Mechanical Ventilator 01/14/20 16:00 100 01/14/20 16:00 81 01/14/20 16:00 99.2 84 17 118/47 (70) 93 01/14/20 15:00 79 18 100 01/14/20 15:00 85 16 121/51 (74) 93 01/14/20 14:00 82 18 118/51 (73) 94 01/14/20 13:00 81 18 129/56 (80) 94 01/14/20 12:00 100 01/14/20 12:00 98.8 83 19 126/47 (73) 94 01/14/20 12:00 83 01/14/20 12:00 Mechanical Ventilator Mechanical Ventilator Mechanical Ventilator 01/14/20 11:00 84 22 100 01/14/20 11:00 86 20 122/44 (70) 94 01/14/20 10:00 86 25 124/52 (76) 92 Height (Feet): 5 Height (Inches): 2.00 Weight (Pounds): 155 GENERAL: On Vent 100% O2 HEENT: NCAT, MMM, Intubated LUNGS: Equal rise and fall of chest B/L no accessory muscle use ABDOMEN: Soft, nondistended EXTREMITIES: No cyanosis, clubbing, or edema. Microbiology Date/Time Source Procedure Growth Status 01/13/20 12:50 Urine,Clean Catch Urine Culture - Preliminary YEAST Resulted 01/13/20 04:00 Stool Clostridium difficile Toxin Assay - Final Complete Laboratory Tests Test 01/14/20 17:30 01/14/20 22:35 01/15/20 04:20 01/15/20 08:41 POC Whole Blood Glucose 192 MG/DL (74-106) H Arterial Blood pH 7.212 (7.350-7.450) 7.184 (7.350-7.450) Arterial Blood Partial Pressure CO2 54.0 mmHg (35.0-45.0) H 53.0 mmHg (35.0-45.0) H Arterial Blood Partial Pressure O2 49.2 mmHg (75.0-100.0) 70.3 mmHg (75.0-100.0) L Arterial Blood HCO3 21.2 mmol/L (22.0-26.0) L 19.5 mmol/L (22.0-26.0) L Arterial Blood Oxygen Saturation 83.9 % (95-100) *L 92.9 % (95-100) L Arterial Blood Base Excess -6.7 (-2-2) L -8.6 (-2-2) L Chester Test Positive Positive White Blood Count 39.6 K/UL (4.8-10.8) *H Red Blood Count 3.44 M/UL (4.20-5.40) L Hemoglobin 9.0 G/DL (12.0-16.0) L Hematocrit 29.2 % (37.0-47.0) L Mean Corpuscular Volume 85 FL (80-99) Mean Corpuscular Hemoglobin 26.2 PG (27.0-31.0) L Mean Corpuscular Hemoglobin Concent 30.8 G/DL (32.0-36.0) L Red Cell Distribution Width 16.8 % (11.6-14.8) H Platelet Count 213 K/UL (150-450) Mean Platelet Volume 6.3 FL (6.5-10.1) L Neutrophils (%) (Auto) % (45.0-75.0) Lymphocytes (%) (Auto) % (20.0-45.0) Monocytes (%) (Auto) % (1.0-10.0) Eosinophils (%) (Auto) % (0.0-3.0) Basophils (%) (Auto) % (0.0-2.0) Differential Total Cells Counted 100 Neutrophils % (Manual) 89 % (45-75) H Lymphocytes % (Manual) 0 % (20-45) L Monocytes % (Manual) 1 % (1-10) Eosinophils % (Manual) 0 % (0-3) Basophils % (Manual) 0 % (0-2) Metamyelocytes % 1 % (0-0) H Myelocytes % 2 % (0-0) H Band Neutrophils 7 % (0-8) Platelet Estimate Adequate Platelet Morphology Normal Hypochromasia 1+ Sodium Level 139 MMOL/L (136-145) Potassium Level 4.3 MMOL/L (3.5-5.1) Chloride Level 103 MMOL/L (98-107) Carbon Dioxide Level 21 MMOL/L (21-32) Anion Gap 15 mmol/L (5-15) Blood Urea Nitrogen 68 mg/dL (7-18) H Creatinine 3.0 MG/DL (0.55-1.30) H Estimat Glomerular Filtration Rate 14.8 mL/min (>60) Glucose Level 193 MG/DL (74-106) H Calcium Level 8.7 MG/DL (8.5-10.1) Phosphorus Level 6.2 MG/DL (2.5-4.9) H Magnesium Level 2.1 MG/DL (1.8-2.4) Total Bilirubin 0.4 MG/DL (0.2-1.0) Aspartate Amino Transf (AST/SGOT) 37 U/L (15-37) Alanine Aminotransferase (ALT/SGPT) 66 U/L (12-78) Alkaline Phosphatase 109 U/L (46-116) Total Protein 6.0 G/DL (6.4-8.2) L Albumin 2.0 G/DL (3.4-5.0) L Globulin 4.0 g/dL Albumin/Globulin Ratio 0.5 (1.0-2.7) L Current Medications Medications (Trade) Dose Ordered Sig/Brett Route PRN Reason Start Time Stop Time Status Last Admin Dose Admin Acetaminophen (Tylenol) 650 mg Q4H PRN ORAL FEVER 9/19/20 07:00 01/31/20 06:59 01/09/20 22:58 Acetaminophen (Tylenol) 650 mg Q4H PRN RECTAL Temp >100.5 01/03/20 09:30 02/02/20 09:29 01/03/20 12:18 Albuterol/ Ipratropium (Combivent Respimat) 1 puff Q4H PRN INH Shortness of Breath 01/05/20 20:00 02/04/20 19:59 Allopurinol (allopurinoL) 300 mg DAILY NG 01/07/20 10:45 02/06/20 10:44 01/15/20 08:46 Chlorhexidine Gluconate (Silvia-Hex 2%) 1 applic DAILY@1999 TOPIC 01/07/20 20:00 04/06/20 19:59 01/14/20 20:07 Dextrose (Dextrose 50%) 25 ml Q30M PRN IV Hypoglycemia 01/01/20 08:45 03/31/20 08:44 Dextrose (Dextrose 50%) 50 ml Q30M PRN IV Hypoglycemia 01/01/20 08:45 03/31/20 08:44 Diltiazem HCl 125 ml @ 0 mls/hr Q24H IVPB 01/15/20 08:15 01/16/20 08:14 01/15/20 08:46 Diltiazem HCl (Cardizem) 15 mg Q12H PRN IVP For High Blood Pressure 01/03/20 07:00 02/02/20 06:59 Heparin Sodium (Porcine) (Heparin 5000 units/ml) 5,000 units EVERY 12 HOURS SUBQ 01/01/20 09:00 02/15/20 08:59 01/15/20 08:47 Insulin Aspart (NovoLOG) Q6HR SUBQ 01/09/20 00:00 03/31/20 11:29 01/15/20 06:01 Levothyroxine Sodium (Synthroid) 200 mcg DAILY@0630 ORAL 01/12/20 06:30 02/11/20 06:29 01/15/20 06:03 Lorazepam (Ativan 2mg/ml 1ml) 2 mg Q2H PRN IV For Anxiety 01/09/20 23:45 01/16/20 23:44 01/10/20 21:38 Meropenem 500 mg/ Sodium Chloride 55 ml @ 110 mls/hr Q12HR@0100,1300 IVPB 01/13/20 13:00 01/18/20 12:59 01/15/20 00:17 Metoclopramide HCl (Reglan) 10 mg Q6H PRN IVP Nausea & Vomiting 01/11/20 12:15 02/10/20 12:14 01/13/20 06:16 Morphine Sulfate (Morphine Sulfate) 4 mg Q4H PRN IVP For Pain 01/09/20 23:45 01/16/20 23:44 01/09/20 23:50 Ondansetron HCl (Zofran) 4 mg Q6H PRN IVP Nausea & Vomiting 01/01/20 07:00 01/31/20 06:59 Pantoprazole (Protonix) 40 mg Q12HR IV 01/05/20 21:00 02/04/20 08:59 01/15/20 08:46 Sevelamer Carbonate (Renvela) 800 mg THREE TIMES A DAY NG 01/14/20 13:00 04/13/20 12:59 01/15/20 08:46 Mehrdad Yepez MD Jan 15, 2020 09:38
--- NOTE | 2020-01-15 09:43 | NUR ---
NURSE NOTES: Dr. Mandel updated of patient hemodialysis done yesterday with removal of 2 liters. improvement in chemistry labs, no verbal orders given at this time.
--- NOTE | 2020-01-15 10:00 | NUR ---
NURSE NOTES: Dr. Graves notified regarding patients ABG results, ordered to have ventilator setting changed to AC of 20. RT notified and awaiting for ventilator setting change
--- NOTE | 2020-01-15 12:05 | NUR ---
NURSE NOTES: Oral care provided and repositioned, remains on tube feeding at 40ml/hr running Nepro through OG-tube.
[2020-01-15] MEDS: Micafungin 100 MG in NS 110 ML IVPB SCH (12:16)
--- NOTE | 2020-01-15 13:01 | Internal Med Progress Note ---
Subjective Date of Service: Jan 15, 2020 Physician Name Harris Greenfield Attending Physician Fernando Peguero MD Current Medications Medications (Trade) Dose Ordered Sig/Brett Route PRN Reason Start Time Stop Time Status Last Admin Dose Admin Acetaminophen (Tylenol) 650 mg Q4H PRN ORAL FEVER 01/01/20 07:00 01/31/20 06:59 01/09/20 22:58 Acetaminophen (Tylenol) 650 mg Q4H PRN RECTAL Temp >100.5 01/03/20 09:30 02/02/20 09:29 01/03/20 12:18 Albuterol/ Ipratropium (Combivent Respimat) 1 puff Q4H PRN INH Shortness of Breath 01/05/20 20:00 02/04/20 19:59 Allopurinol (allopurinoL) 300 mg DAILY NG 01/07/20 10:45 02/06/20 10:44 01/15/20 08:46 Chlorhexidine Gluconate (Silvia-Hex 2%) 1 applic DAILY@2000 TOPIC 01/07/20 20:00 04/06/20 19:59 01/14/20 20:07 Dextrose (Dextrose 50%) 25 ml Q30M PRN IV Hypoglycemia 01/01/20 08:45 03/31/20 08:44 Dextrose (Dextrose 50%) 50 ml Q30M PRN IV Hypoglycemia 01/01/20 08:45 03/31/20 08:44 Diltiazem HCl 125 ml @ 0 mls/hr Q24H IVPB 01/15/20 08:15 01/16/20 08:14 01/15/20 08:46 Diltiazem HCl (Cardizem) 15 mg Q12H PRN IVP For High Blood Pressure 01/03/20 07:00 02/02/20 06:59 Heparin Sodium (Porcine) (Heparin 5000 units/ml) 5,000 units EVERY 12 HOURS SUBQ 01/01/20 09:00 02/15/20 08:59 01/15/20 08:47 Insulin Aspart (NovoLOG) Q6HR SUBQ 01/09/20 00:00 03/31/20 11:29 01/15/20 06:01 Levothyroxine Sodium (Synthroid) 200 mcg DAILY@0630 ORAL 01/12/20 06:30 02/11/20 06:29 01/15/20 06:03 Lorazepam (Ativan 2mg/ml 1ml) 2 mg Q2H PRN IV For Anxiety 01/09/20 23:45 01/16/20 23:44 01/10/20 21:38 Meropenem 500 mg/ Sodium Chloride 55 ml @ 110 mls/hr Q12HR@0100,1300 IVPB 01/13/20 13:00 01/18/20 12:59 01/15/20 00:17 Metoclopramide HCl (Reglan) 10 mg Q6H PRN IVP Nausea & Vomiting 01/11/20 12:15 02/10/20 12:14 01/13/20 06:16 Micafungin Sodium 100 mg/Sodium Chloride 110 ml @ 110 mls/hr Q24H IVPB 01/15/20 11:00 01/22/20 10:59 01/15/20 12:16 Morphine Sulfate (Morphine Sulfate) 4 mg Q4H PRN IVP For Pain 01/09/20 23:45 01/16/20 23:44 01/09/20 23:50 Ondansetron HCl (Zofran) 4 mg Q6H PRN IVP Nausea & Vomiting 01/01/20 07:00 01/31/20 06:59 Pantoprazole (Protonix) 40 mg Q12HR IV 01/05/20 21:00 02/04/20 08:59 01/15/20 08:46 Sevelamer Carbonate (Renvela) 800 mg THREE TIMES A DAY NG 01/14/20 13:00 04/13/20 12:59 01/15/20 08:46 Allergies: Coded Allergies: DOXYCYCLINE (Verified Allergy, Unknown, 04/04/19) RIFAMPIN (Verified Allergy, Unknown, 04/04/19) ROS Limited/Unobtainable: Yes Subjective 84 YO F admitted with hypoxia. Now COVID 19 pneumonia. Cover for Int pallavi-DR Peguero. ICU. Intubated and sedated Objective Last Vital Signs Date Time Temp Pulse Resp B/P (MAP) Pulse Ox O2 Delivery O2 Flow Rate FiO2 01/15/20 12:00 92 21 112/44 (66) 100 01/15/20 12:00 Mechanical Ventilator Mechanical Ventilator 01/15/20 12:00 100 01/15/20 08:00 99.9 Laboratory Tests Test 01/14/20 17:30 01/14/20 22:35 01/15/20 04:20 01/15/20 08:41 POC Whole Blood Glucose 192 MG/DL (74-106) H Arterial Blood pH 7.212 (7.350-7.450) 7.184 (7.350-7.450) Arterial Blood Partial Pressure CO2 54.0 mmHg (35.0-45.0) H 53.0 mmHg (35.0-45.0) H Arterial Blood Partial Pressure O2 49.2 mmHg (75.0-100.0) 70.3 mmHg (75.0-100.0) L Arterial Blood HCO3 21.2 mmol/L (22.0-26.0) L 19.5 mmol/L (22.0-26.0) L Arterial Blood Oxygen Saturation 83.9 % (95-100) *L 92.9 % (95-100) L Arterial Blood Base Excess -6.7 (-2-2) L -8.6 (-2-2) L Chester Test Positive Positive White Blood Count 39.6 K/UL (4.8-10.8) *H Red Blood Count 3.44 M/UL (4.20-5.40) L Hemoglobin 9.0 G/DL (12.0-16.0) L Hematocrit 29.2 % (37.0-47.0) L Mean Corpuscular Volume 85 FL (80-99) Mean Corpuscular Hemoglobin 26.2 PG (27.0-31.0) L Mean Corpuscular Hemoglobin Concent 30.8 G/DL (32.0-36.0) L Red Cell Distribution Width 16.8 % (11.6-14.8) H Platelet Count 213 K/UL (150-450) Mean Platelet Volume 6.3 FL (6.5-10.1) L Neutrophils (%) (Auto) % (45.0-75.0) Lymphocytes (%) (Auto) % (20.0-45.0) Monocytes (%) (Auto) % (1.0-10.0) Eosinophils (%) (Auto) % (0.0-3.0) Basophils (%) (Auto) % (0.0-2.0) Differential Total Cells Counted 100 Neutrophils % (Manual) 89 % (45-75) H Lymphocytes % (Manual) 0 % (20-45) L Monocytes % (Manual) 1 % (1-10) Eosinophils % (Manual) 0 % (0-3) Basophils % (Manual) 0 % (0-2) Metamyelocytes % 1 % (0-0) H Myelocytes % 2 % (0-0) H Band Neutrophils 7 % (0-8) Platelet Estimate Adequate Platelet Morphology Normal Hypochromasia 1+ Sodium Level 139 MMOL/L (136-145) Potassium Level 4.3 MMOL/L (3.5-5.1) Chloride Level 103 MMOL/L (98-107) Carbon Dioxide Level 21 MMOL/L (21-32) Anion Gap 15 mmol/L (5-15) Blood Urea Nitrogen 68 mg/dL (7-18) H Creatinine 3.0 MG/DL (0.55-1.30) H Estimat Glomerular Filtration Rate 14.8 mL/min (>60) Glucose Level 193 MG/DL (74-106) H Calcium Level 8.7 MG/DL (8.5-10.1) Phosphorus Level 6.2 MG/DL (2.5-4.9) H Magnesium Level 2.1 MG/DL (1.8-2.4) Total Bilirubin 0.4 MG/DL (0.2-1.0) Aspartate Amino Transf (AST/SGOT) 37 U/L (15-37) Alanine Aminotransferase (ALT/SGPT) 66 U/L (12-78) Alkaline Phosphatase 109 U/L (46-116) Total Protein 6.0 G/DL (6.4-8.2) L Albumin 2.0 G/DL (3.4-5.0) L Globulin 4.0 g/dL Albumin/Globulin Ratio 0.5 (1.0-2.7) L Microbiology Date/Time Source Procedure Growth Status 01/13/20 12:50 Urine,Clean Catch Urine Culture - Preliminary YEAST Resulted 01/13/20 04:00 Stool Clostridium difficile Toxin Assay - Final Complete Intake and Output 01/14/20 01/15/20 18:59 06:59 Intake Total 1838.33 ml 585 ml Output Total 130 ml 2005 ml Balance 1708.33 ml -1420 ml Free Water 60 ml IV Total 1383.33 ml 45 ml Tube Feeding 455 ml 480 ml Output Urine Total 30 ml 5 ml Stool Total 100 ml Hemodialysis UF 2000 ml Objective PHYSICAL EXAMINATION: GENERAL: The patient is a well-developed and well-nourished female, in moderate respiratory distress. HEENT: Eyes, pupils equal and responsive to light and accommodation. Extraocular movements are intact. NECK: Supple without lymphadenopathy. CHEST: Mech vent; Decreased breath sounds at bilateral bases with crackles. Otherwise, without wheezes. CARDIOVASCULAR: Regular rhythm and rate. S1, S2 normal without murmurs, rubs, or gallops. ABDOMEN: Soft, nontender, and nondistended. Positive bowel sounds. No evidence of hepatosplenomegaly. Currently, no rebound or guarding noted. EXTREMITIES: Negative for clubbing, cyanosis, or edema. RECTAL/GENITAL: Not performed. NEUROLOGIC: Cranial nerves II through XII are grossly intact without focal deficits. Assessment/Plan Assessment/Plan ASSESSMENT: This is an 84-year-old female with: 1. COVID-19 positive. 2. Bilateral pneumonia. 3. Hypertension. 4. Atrial fibrillation. 5. Chronic obstructive pulmonary disease. 6. Coronary artery disease. 7. Congestive heart failure. 8. Diabetes type 2. 9. Hypothyroidism. 10. Hypercholesterolemia. 11. Rheumatoid arthritis. 12. Gastroesophageal reflux disease. 13. Respiratory failure 14. S/P cardiac arrest 01/05/20 TREATMENT: 1. COVID-19 positive/pneumonia. Continue decadron; S/P remdesivir 1. Pulmonary/critical care=Dr. Ann-Marie Graves. 2. Hypertension. Continue hydralazine as above. 3. Atrial fibrillation. Continue digoxin as above. 4. Chronic obstructive pulmonary disease. As above, a Pulmonary consultation has been obtained with Dr. Ann-Marie Graves. The patient is currently on albuterol nebulized q.4h. p..r.n. 5. Coronary disease/congestive heart failure. An echocardiogram is pending. A Cardiology consultation has been obtained with Dr. Gaming. 6. Diabetes type 2. NovoLog sliding scale has been instituted. 7. Hypothyroidism. Continue Synthroid as above. 8. Hypercholesterolemia. Continue atorvastatin as above. 9. Rheumatoid arthritis. 10. Gastroesophageal reflux disease. Continue Protonix as above. 11. Continue mech vent per pulmonary 12. ABX=meropenem and micafungin 13. CODE STATUS: Full code 14. DVT prophylaxis: Heparin subcu. Greenfield,Harris MD Jan 15, 2020 13:01
[2020-01-15] MEDS ORDERED: Sterile Water Irrig 1000ml IRRIG ONE (13:03)
--- NOTE | 2020-01-15 14:12 | Nephrology Progress Note ---
Assessment/Plan Problem List: (1) BORIS (acute kidney injury) (2) 2019 novel coronavirus detected (3) Hypothyroidism (4) Diabetes mellitus (5) Atrial fibrillation (6) Shock liver Assessment 85-year-old female admitted 5 days ago, at the time serum creatinine was 0.9 and today the serum creatinine is 1.4, most likely BORIS Hypernatremia secondary to free water deficit Prerenal azotemia COVID-19 virus detected Acute on chronic systolic congestive heart failure Atrial fibrillation Diabetes mellitus Hypothyroidism Hypertension Acute on chronic respiratory failure Plan January 14: Dialyzed yesterday. 2000 mL fluid ultrafiltrated during dialysis. Will dialyze again tomorrow. Continue per consultants. Labs reviewed. Medication list reviewed. Continue as is. January 13: Creatinine rising. Other labs and medication reviewed. Patient intubated. Patient full code. Consent for dialysis catheter is obtained. Will order dialysis after insertion of the non-tunneled dialysis catheter. Discussed with ALEX Hernandez. January 12: Serum creatinine rising. Patient was transfused. Remains full code. Remains intubated on ventilator. Will get consent for placement of non- tunneled dialysis catheter. Further worsening renal parameters may lead to the need for dialysis treatment. Per orders. January 11: Labs reviewed. Serum creatinine higher. Hemoglobin lower. Transfusion 2 units packed RBCs today. Continue to monitor renal parameters. Avoid nephrotoxic's. January 10: Labs reviewed. Serum creatinine 2.5. Liver enzymes are lowering. Remains full code. Remains intubated. Electrolyte abnormalities addressed. Continue per consultants. January 09: Lab reviewed. Serum creatinine lower at 2.6. Liver enzymes are lowering. Patient remains full code and remains intubated. Continue current management. Continue to follow renal parameters. Continue per consultants. Start Cardizem 30 mg every 8 hours via NG tube for elevated blood pressure January 08: Lab reviewed. Serum creatinine 2.8. LFTs improving. Remains intubated. Remains full code. Continue per consultants. Continue to monitor renal parameters. Avoid nephrotoxic's as possible. January 07: Labs reviewed. Serum creatinine robby to 2.9. Liver enzymes are improving. Patient off pressors. Patient full code. Patient intubated on ventilator. Continue to monitor renal parameters. IV fluid changed to normal saline. Continue per consultants. Anemia work-up initiated, iron panel B12 and folate level ordered. January 06: Labs reviewed. Serum creatinine up to 2.6. Medications reviewed. Continue to follow renal parameters and electrolytes. Continue to monitor liver enzymes. Allopurinol for high uric acid given. Discussed with RN. January 05: Blood pressure stable off pressors. Continue IV fluids. Monitor renal parameters. Monitor liver function tests. Hold oral Synthroid at this time. Continue treatment for sepsis and COVID-19 infection IV fluids Keep the blood pressure over 100 systolic Monitor renal parameters and electrolytes Monitor liver function tests Avoid nephrotoxic's as possible Urine studies Digoxin level Thyroid function tests Per orders Subjective ROS Limited/Unobtainable: Yes Objective Objective Last 24 Hour Vital Signs Date Time Temp Pulse Resp B/P (MAP) Pulse Ox O2 Delivery O2 Flow Rate FiO2 01/15/20 13:00 99 20 121/44 (69) 100 01/15/20 12:00 92 21 112/44 (66) 100 01/15/20 12:00 Mechanical Ventilator Mechanical Ventilator 01/15/20 12:00 100 01/15/20 11:30 96 20 112/44 (66) 100 01/15/20 11:21 90 20 100 01/15/20 11:00 95 20 117/46 (69) 98 01/15/20 10:42 92 26 96 Mechanical Ventilator 100 01/15/20 10:30 93 21 120/41 (67) 99 01/15/20 10:00 95 20 113/44 (67) 99 01/15/20 09:30 98 27 126/44 (71) 95 01/15/20 09:00 96 25 120/46 (70) 97 01/15/20 08:30 96 26 117/48 (71) 98 01/15/20 08:00 103 01/15/20 08:00 99.9 93 26 110/41 (64) 96 01/15/20 08:00 100 01/15/20 08:00 Mechanical Ventilator Mechanical Ventilator 01/15/20 07:30 95 17 121/49 (73) 94 01/15/20 07:28 92 26 100 01/15/20 07:00 22 120/49 (72) 94 01/15/20 06:00 96 24 125/46 (72) 95 01/15/20 05:00 95 22 124/48 (73) 94 01/15/20 04:00 91 01/15/20 04:00 100 01/15/20 04:00 Mechanical Ventilator Mechanical Ventilator Mechanical Ventilator 01/15/20 04:00 91 20 127/37 (67) 96 01/15/20 03:49 92 27 100 01/15/20 03:00 97 30 133/49 (77) 93 01/15/20 02:00 96 25 141/51 (81) 92 01/15/20 01:00 95 29 140/52 (81) 89 01/15/20 00:00 99 26 119/44 (69) 89 01/15/20 00:00 Mechanical Ventilator Mechanical Ventilator Mechanical Ventilator 01/14/20 23:23 92 26 100 01/14/20 23:00 94 27 134/48 (76) 87 01/14/20 22:00 92 25 112/39 (63) 86 01/14/20 21:00 91 24 117/43 (67) 88 01/14/20 20:00 95 01/14/20 20:00 99.5 95 25 119/47 (71) 87 01/14/20 20:00 Mechanical Ventilator Mechanical Ventilator Mechanical Ventilator 01/14/20 20:00 100 01/14/20 19:29 81 20 100 01/14/20 19:10 97 27 116/46 (69) 84 01/14/20 19:00 89 24 111/49 (69) 78 01/14/20 18:00 90 26 128/45 (72) 84 01/14/20 17:00 79 27 116/53 (74) 92 01/14/20 16:30 82 28 122/46 (71) 91 01/14/20 16:00 Mechanical Ventilator Mechanical Ventilator Mechanical Ventilator 01/14/20 16:00 100 01/14/20 16:00 81 01/14/20 16:00 99.2 84 17 118/47 (70) 93 01/14/20 15:00 79 18 100 01/14/20 15:00 85 16 121/51 (74) 93 Intake and Output 01/14/20 01/15/20 19:00 07:00 Intake Total 1778.33 ml 580 ml Output Total 135 ml 2000 ml Balance 1643.33 ml -1420 ml Free Water 60 ml IV Total 1283.33 ml 40 ml Tube Feeding 495 ml 480 ml Output Urine Total 35 ml 0 ml Stool Total 100 ml Hemodialysis UF 2000 ml Laboratory Tests 01/14/20 17:30: POC Whole Blood Glucose 192H 01/14/20 22:35: Arterial Blood pH 7.212*L, Arterial Blood Partial Pressure CO2 54.0H, Arterial Blood Partial Pressure O2 49.2*L, Arterial Blood HCO3 21.2L, Arterial Blood Oxygen Saturation 83.9*L, Arterial Blood Base Excess -6.7L, Chester Test Positive 01/15/20 04:20: White Blood Count 39.6*H, Red Blood Count 3.44L, Hemoglobin 9.0L, Hematocrit 29 .2L, Mean Corpuscular Volume 85, Mean Corpuscular Hemoglobin 26.2L, Mean Corpuscular Hemoglobin Concent 30.8L, Red Cell Distribution Width 16.8H, Platelet Count 213, Mean Platelet Volume 6.3L, Neutrophils (%) (Auto) , Lymphocytes (%) (Auto) , Monocytes (%) (Auto) , Eosinophils (%) (Auto) , Basophils (%) (Auto) , Differential Total Cells Counted 100, Neutrophils % (Manual) 89H, Lymphocytes % (Manual) 0L, Monocytes % (Manual) 1, Eosinophils % (Manual) 0, Basophils % (Manual) 0, Metamyelocytes % 1H, Myelocytes % 2H, Band Neutrophils 7, Platelet Estimate Adequate, Platelet Morphology Normal, Hypochromasia 1+, Sodium Level 139, Potassium Level 4.3, Chloride Level 103, Carbon Dioxide Level 21, Anion Gap 15, Blood Urea Nitrogen 68H, Creatinine 3.0H, Estimat Glomerular Filtration Rate 14.8, Glucose Level 193H, Calcium Level 8.7, Phosphorus Level 6.2H, Magnesium Level 2.1, Total Bilirubin 0.4, Aspartate Amino Transf (AST/SGOT) 37, Alanine Aminotransferase (ALT/SGPT) 66, Alkaline Phosphatase 109, Total Protein 6.0L, Albumin 2.0L, Globulin 4.0, Albumin/Globulin Ratio 0.5L 01/15/20 08:41: Arterial Blood pH 7.184*L, Arterial Blood Partial Pressure CO2 53.0H, Arterial Blood Partial Pressure O2 70.3L, Arterial Blood HCO3 19.5L, Arterial Blood Oxygen Saturation 92.9L, Arterial Blood Base Excess -8.6L, Chester Test Positive Height (Feet): 5 Height (Inches): 2.00 Weight (Pounds): 155 General Appearance: no apparent distress EENT: other - Remains intubated on ventilator Cardiovascular: tachycardia Respiratory/Chest: decreased breath sounds Abdomen: distended Naun Mandel MD Jan 15, 2020 14:12
--- NOTE | 2020-01-15 14:34 | NUR ---
NURSE NOTES: [facility] hemodialysis called to inform of dialysis order for 01/16/20. awaiting for call back from nurse.
--- NOTE | 2020-01-15 14:59 | Cardiology Progress Note ---
Assessment/Plan Assessment/Plan paf now persistent afib pneumonia pulm htn 90's copd dm acute covid 19 infection diastolic failure cardiopulm arrest (pt was found off bipap) respiratory acidosis ARF abn lft probable shock liver imporved abn trop likey realted to cpr anoxic encephalopathy cxr personally reviewed appears worse s/p remdezivir on empiric abx and steroids personally reviewed tele:afib on iv dilt hr controlled dig level ok will intermittently dose dig supportive care at this time not need pressror but diana be observed for need vent support heparin for dvt ppx in the settign of unstable renal function post arf remains critically ill and at risk of dying advanced directives noted poa avaiaLBE s/wp dialysis wbc increased , febrile Subjective ROS Limited/Unobtainable: Yes Subjective remain on the vent not responsive per rn Objective Last 24 Hour Vital Signs Date Time Temp Pulse Resp B/P (MAP) Pulse Ox O2 Delivery O2 Flow Rate FiO2 01/15/20 14:00 95 23 127/62 (83) 98 01/15/20 13:30 93 20 119/47 (71) 99 01/15/20 13:00 99 20 121/44 (69) 100 01/15/20 12:30 100.1 94 20 118/44 (68) 100 01/15/20 12:00 92 21 112/44 (66) 100 01/15/20 12:00 Mechanical Ventilator Mechanical Ventilator 01/15/20 12:00 100 01/15/20 11:30 96 20 112/44 (66) 100 01/15/20 11:21 90 20 100 01/15/20 11:00 95 20 117/46 (69) 98 01/15/20 10:42 92 26 96 Mechanical Ventilator 100 01/15/20 10:30 93 21 120/41 (67) 99 01/15/20 10:00 95 20 113/44 (67) 99 01/15/20 09:30 98 27 126/44 (71) 95 01/15/20 09:00 96 25 120/46 (70) 97 01/15/20 08:30 96 26 117/48 (71) 98 01/15/20 08:00 103 01/15/20 08:00 99.9 93 26 110/41 (64) 96 01/15/20 08:00 100 01/15/20 08:00 Mechanical Ventilator Mechanical Ventilator 10/3/20 07:30 95 17 121/49 (73) 94 01/15/20 07:28 92 26 100 01/15/20 07:00 22 120/49 (72) 94 01/15/20 06:00 96 24 125/46 (72) 95 01/15/20 05:00 95 22 124/48 (73) 94 01/15/20 04:00 91 01/15/20 04:00 100 01/15/20 04:00 Mechanical Ventilator Mechanical Ventilator Mechanical Ventilator 01/15/20 04:00 91 20 127/37 (67) 96 01/15/20 03:49 92 27 100 01/15/20 03:00 97 30 133/49 (77) 93 01/15/20 02:00 96 25 141/51 (81) 92 01/15/20 01:00 95 29 140/52 (81) 89 01/15/20 00:00 99 26 119/44 (69) 89 01/15/20 00:00 Mechanical Ventilator Mechanical Ventilator Mechanical Ventilator 01/14/20 23:23 92 26 100 01/14/20 23:00 94 27 134/48 (76) 87 01/14/20 22:00 92 25 112/39 (63) 86 01/14/20 21:00 91 24 117/43 (67) 88 01/14/20 20:00 95 01/14/20 20:00 99.5 95 25 119/47 (71) 87 01/14/20 20:00 Mechanical Ventilator Mechanical Ventilator Mechanical Ventilator 01/14/20 20:00 100 01/14/20 19:29 81 20 100 01/14/20 19:10 97 27 116/46 (69) 84 01/14/20 19:00 89 24 111/49 (69) 78 01/14/20 18:00 90 26 128/45 (72) 84 01/14/20 17:00 79 27 116/53 (74) 92 01/14/20 16:30 82 28 122/46 (71) 91 01/14/20 16:00 Mechanical Ventilator Mechanical Ventilator Mechanical Ventilator 01/14/20 16:00 100 01/14/20 16:00 81 01/14/20 16:00 99.2 84 17 118/47 (70) 93 01/14/20 15:00 79 18 100 01/14/20 15:00 85 16 121/51 (74) 93 Intake and Output 01/14/20 01/15/20 19:00 07:00 Intake Total 1778.33 ml 580 ml Output Total 135 ml 2000 ml Balance 1643.33 ml -1420 ml Free Water 60 ml IV Total 1283.33 ml 40 ml Tube Feeding 495 ml 480 ml Output Urine Total 35 ml 0 ml Stool Total 100 ml Hemodialysis UF 2000 ml Laboratory Tests Test 01/14/20 17:30 01/14/20 22:35 01/15/20 04:20 01/15/20 08:41 POC Whole Blood Glucose 192 MG/DL (74-106) H Arterial Blood pH 7.212 (7.350-7.450) 7.184 (7.350-7.450) Arterial Blood Partial Pressure CO2 54.0 mmHg (35.0-45.0) H 53.0 mmHg (35.0-45.0) H Arterial Blood Partial Pressure O2 49.2 mmHg (75.0-100.0) 70.3 mmHg (75.0-100.0) L Arterial Blood HCO3 21.2 mmol/L (22.0-26.0) L 19.5 mmol/L (22.0-26.0) L Arterial Blood Oxygen Saturation 83.9 % (95-100) *L 92.9 % (95-100) L Arterial Blood Base Excess -6.7 (-2-2) L -8.6 (-2-2) L Chester Test Positive Positive White Blood Count 39.6 K/UL (4.8-10.8) *H Red Blood Count 3.44 M/UL (4.20-5.40) L Hemoglobin 9.0 G/DL (12.0-16.0) L Hematocrit 29.2 % (37.0-47.0) L Mean Corpuscular Volume 85 FL (80-99) Mean Corpuscular Hemoglobin 26.2 PG (27.0-31.0) L Mean Corpuscular Hemoglobin Concent 30.8 G/DL (32.0-36.0) L Red Cell Distribution Width 16.8 % (11.6-14.8) H Platelet Count 213 K/UL (150-450) Mean Platelet Volume 6.3 FL (6.5-10.1) L Neutrophils (%) (Auto) % (45.0-75.0) Lymphocytes (%) (Auto) % (20.0-45.0) Monocytes (%) (Auto) % (1.0-10.0) Eosinophils (%) (Auto) % (0.0-3.0) Basophils (%) (Auto) % (0.0-2.0) Differential Total Cells Counted 100 Neutrophils % (Manual) 89 % (45-75) H Lymphocytes % (Manual) 0 % (20-45) L Monocytes % (Manual) 1 % (1-10) Eosinophils % (Manual) 0 % (0-3) Basophils % (Manual) 0 % (0-2) Metamyelocytes % 1 % (0-0) H Myelocytes % 2 % (0-0) H Band Neutrophils 7 % (0-8) Platelet Estimate Adequate Platelet Morphology Normal Hypochromasia 1+ Sodium Level 139 MMOL/L (136-145) Potassium Level 4.3 MMOL/L (3.5-5.1) Chloride Level 103 MMOL/L (98-107) Carbon Dioxide Level 21 MMOL/L (21-32) Anion Gap 15 mmol/L (5-15) Blood Urea Nitrogen 68 mg/dL (7-18) H Creatinine 3.0 MG/DL (0.55-1.30) H Estimat Glomerular Filtration Rate 14.8 mL/min (>60) Glucose Level 193 MG/DL (74-106) H Calcium Level 8.7 MG/DL (8.5-10.1) Phosphorus Level 6.2 MG/DL (2.5-4.9) H Magnesium Level 2.1 MG/DL (1.8-2.4) Total Bilirubin 0.4 MG/DL (0.2-1.0) Aspartate Amino Transf (AST/SGOT) 37 U/L (15-37) Alanine Aminotransferase (ALT/SGPT) 66 U/L (12-78) Alkaline Phosphatase 109 U/L (46-116) Total Protein 6.0 G/DL (6.4-8.2) L Albumin 2.0 G/DL (3.4-5.0) L Globulin 4.0 g/dL Albumin/Globulin Ratio 0.5 (1.0-2.7) L Microbiology Date/Time Source Procedure Growth Status 01/13/20 12:50 Urine,Clean Catch Urine Culture - Preliminary YEAST Resulted 01/13/20 04:00 Stool Clostridium difficile Toxin Assay - Final Complete Objective pt with covid exam deferred remain on the vent no communicative per rn sig secretion purulent not on pressor but is on iv dilt ETT at 23cm lip on ventilator AC 16 TV 600 FiO2 80% PEEP 5. BP 134/46 HR 79 Afib on monitor. Left Subclavian TLC running Cardizem @ 10ml/hr, NS @100ml/hr asymptomatic. OGT running Vital @30ml/hr. Kelsey draining scant yellow urine with sediment. patient with sacral redness covered with Optifoam, bilateral upper ext remity weeping edema and ecchymosis, bilateral lower extremity edema. Reginaldo Gaming MD Jan 15, 2020 14:59
--- NOTE | 2020-01-15 15:26 | Pulmonolgy Critical Care Note ---
Critical Care - Asmt/Plan Problems: (1) Acute respiratory failure due to COVID-19 (2) BORIS (acute kidney injury) (3) Acute on chronic systolic (congestive) heart failure (4) Atrial fibrillation (5) Diabetes mellitus (6) CHF (congestive heart failure) (7) Hypothyroidism (8) Chronic respiratory failure (9) History of hypertension Respiratory: monitor respiratory rate, adjust FIO2, CXR Cardiac: continue to monitor HR/BP Renal: F/U I&O, keep IV fluid Infectious Disease: check cultures, continue antibiotics Gastrointestinal: continue feedings/current rate Endocrine: monitor blood sugar Hematologic: monitor H/H, transfuse if hgb<8.5 Neurologic: PRN Ativan, keep patient comfortable Affect: PRN ativan Disposition: keep in ICU Time Spent (Minutes): 40 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: manager integrated, cardio, ID Critical Care - Objective Last 24 Hour Vital Signs Date Time Temp Pulse Resp B/P (MAP) Pulse Ox O2 Delivery O2 Flow Rate FiO2 01/15/20 15:18 112 24 100 01/15/20 15:00 94 22 127/46 (73) 96 01/15/20 14:30 93 25 122/57 (78) 97 01/15/20 14:00 95 23 127/62 (83) 98 01/15/20 13:30 93 20 119/47 (71) 99 01/15/20 13:00 99 20 121/44 (69) 100 01/15/20 12:30 100.1 94 20 118/44 (68) 100 01/15/20 12:00 92 21 112/44 (66) 100 01/15/20 12:00 Mechanical Ventilator Mechanical Ventilator 01/15/20 12:00 100 01/15/20 11:30 96 20 112/44 (66) 100 01/15/20 11:21 90 20 100 01/15/20 11:00 95 20 117/46 (69) 98 01/15/20 10:42 92 26 96 Mechanical Ventilator 100 01/15/20 10:30 93 21 120/41 (67) 99 01/15/20 10:00 95 20 113/44 (67) 99 01/15/20 09:30 98 27 126/44 (71) 95 01/15/20 09:00 96 25 120/46 (70) 97 01/15/20 08:30 96 26 117/48 (71) 98 10/3/20 08:00 103 01/15/20 08:00 99.9 93 26 110/41 (64) 96 01/15/20 08:00 100 01/15/20 08:00 Mechanical Ventilator Mechanical Ventilator 01/15/20 07:30 95 17 121/49 (73) 94 01/15/20 07:28 92 26 100 01/15/20 07:00 22 120/49 (72) 94 01/15/20 06:00 96 24 125/46 (72) 95 01/15/20 05:00 95 22 124/48 (73) 94 01/15/20 04:00 91 01/15/20 04:00 100 01/15/20 04:00 Mechanical Ventilator Mechanical Ventilator Mechanical Ventilator 01/15/20 04:00 91 20 127/37 (67) 96 01/15/20 03:49 92 27 100 01/15/20 03:00 97 30 133/49 (77) 93 01/15/20 02:00 96 25 141/51 (81) 92 01/15/20 01:00 95 29 140/52 (81) 89 01/15/20 00:00 99 26 119/44 (69) 89 01/15/20 00:00 Mechanical Ventilator Mechanical Ventilator Mechanical Ventilator 01/14/20 23:23 92 26 100 01/14/20 23:00 94 27 134/48 (76) 87 01/14/20 22:00 92 25 112/39 (63) 86 01/14/20 21:00 91 24 117/43 (67) 88 01/14/20 20:00 95 01/14/20 20:00 99.5 95 25 119/47 (71) 87 01/14/20 20:00 Mechanical Ventilator Mechanical Ventilator Mechanical Ventilator 01/14/20 20:00 100 01/14/20 19:29 81 20 100 01/14/20 19:10 97 27 116/46 (69) 84 01/14/20 19:00 89 24 111/49 (69) 78 01/14/20 18:00 90 26 128/45 (72) 84 01/14/20 17:00 79 27 116/53 (74) 92 01/14/20 16:30 82 28 122/46 (71) 91 01/14/20 16:00 Mechanical Ventilator Mechanical Ventilator Mechanical Ventilator 01/14/20 16:00 100 01/14/20 16:00 81 01/14/20 16:00 99.2 84 17 118/47 (70) 93 Status: awake Condition: critical HEENT: atraumatic Neck: full ROM Lungs: chest wall tender, rales, rhonchi Heart: HR/BP stable, regular Abdomen: soft, non-tender Extremities: no C/C/E Micro: Microbiology Date/Time Source Procedure Growth Status 01/13/20 12:50 Urine,Clean Catch Urine Culture - Preliminary YEAST Resulted 01/13/20 04:00 Stool Clostridium difficile Toxin Assay - Final Complete Accucheck: 135 Critical Care - Subjective ROS Limited/Unobtainable: Yes Condition: critical EKG Rhythm: Sinus Rhythm FI02: 100 Vent Support Breath Rate: 20 Vent Support Mode: AC Vent Tidal Volume: 600 Sputum Amount: Moderate PEEP: 10.0 PIP: 62 Tube Feeding Amount: 40 I&O: Intake and Output 01/14/20 01/15/20 19:00 07:00 Intake Total 1778.33 ml 580 ml Output Total 135 ml 2000 ml Balance 1643.33 ml -1420 ml Free Water 60 ml IV Total 1283.33 ml 40 ml Tube Feeding 495 ml 480 ml Output Urine Total 35 ml 0 ml Stool Total 100 ml Hemodialysis UF 2000 ml ET-Tube: 7.5 ET Position: 21 Labs: Laboratory Tests Test 01/14/20 17:30 01/14/20 22:35 01/15/20 04:20 01/15/20 08:41 POC Whole Blood Glucose 192 MG/DL (74-106) H Arterial Blood pH 7.212 (7.350-7.450) 7.184 (7.350-7.450) Arterial Blood Partial Pressure CO2 54.0 mmHg (35.0-45.0) H 53.0 mmHg (35.0-45.0) H Arterial Blood Partial Pressure O2 49.2 mmHg (75.0-100.0) 70.3 mmHg (75.0-100.0) L Arterial Blood HCO3 21.2 mmol/L (22.0-26.0) L 19.5 mmol/L (22.0-26.0) L Arterial Blood Oxygen Saturation 83.9 % (95-100) *L 92.9 % (95-100) L Arterial Blood Base Excess -6.7 (-2-2) L -8.6 (-2-2) L Chester Test Positive Positive White Blood Count 39.6 K/UL (4.8-10.8) *H Red Blood Count 3.44 M/UL (4.20-5.40) L Hemoglobin 9.0 G/DL (12.0-16.0) L Hematocrit 29.2 % (37.0-47.0) L Mean Corpuscular Volume 85 FL (80-99) Mean Corpuscular Hemoglobin 26.2 PG (27.0-31.0) L Mean Corpuscular Hemoglobin Concent 30.8 G/DL (32.0-36.0) L Red Cell Distribution Width 16.8 % (11.6-14.8) H Platelet Count 213 K/UL (150-450) Mean Platelet Volume 6.3 FL (6.5-10.1) L Neutrophils (%) (Auto) % (45.0-75.0) Lymphocytes (%) (Auto) % (20.0-45.0) Monocytes (%) (Auto) % (1.0-10.0) Eosinophils (%) (Auto) % (0.0-3.0) Basophils (%) (Auto) % (0.0-2.0) Differential Total Cells Counted 100 Neutrophils % (Manual) 89 % (45-75) H Lymphocytes % (Manual) 0 % (20-45) L Monocytes % (Manual) 1 % (1-10) Eosinophils % (Manual) 0 % (0-3) Basophils % (Manual) 0 % (0-2) Metamyelocytes % 1 % (0-0) H Myelocytes % 2 % (0-0) H Band Neutrophils 7 % (0-8) Platelet Estimate Adequate Platelet Morphology Normal Hypochromasia 1+ Sodium Level 139 MMOL/L (136-145) Potassium Level 4.3 MMOL/L (3.5-5.1) Chloride Level 103 MMOL/L (98-107) Carbon Dioxide Level 21 MMOL/L (21-32) Anion Gap 15 mmol/L (5-15) Blood Urea Nitrogen 68 mg/dL (7-18) H Creatinine 3.0 MG/DL (0.55-1.30) H Estimat Glomerular Filtration Rate 14.8 mL/min (>60) Glucose Level 193 MG/DL (74-106) H Calcium Level 8.7 MG/DL (8.5-10.1) Phosphorus Level 6.2 MG/DL (2.5-4.9) H Magnesium Level 2.1 MG/DL (1.8-2.4) Total Bilirubin 0.4 MG/DL (0.2-1.0) Aspartate Amino Transf (AST/SGOT) 37 U/L (15-37) Alanine Aminotransferase (ALT/SGPT) 66 U/L (12-78) Alkaline Phosphatase 109 U/L (46-116) Total Protein 6.0 G/DL (6.4-8.2) L Albumin 2.0 G/DL (3.4-5.0) L Globulin 4.0 g/dL Albumin/Globulin Ratio 0.5 (1.0-2.7) L Ann-Marie Graves MD Jan 15, 2020 15:26
--- NOTE | 2020-01-15 16:24 | NUR ---
NURSE NOTES: Oral care provided and linen changed, bottle of feeding replaced with Nepro and running at 40ml/hr. Left upper chest subclavian TLC catheters remains patent and flushing. patient remains on Cardizem drip at 5mg/hr at rate of 5ml/hr.
--- NOTE | 2020-01-15 18:41 | NUR ---
NURSE NOTES: Blood sugar level at 148 and 3 units given subcutaneous. patient remains on Nepro tube feeding at 40ml/hr through og-tube. remains on Cardizem drip at 5mg/hr and rate of 5ml/hr.
--- NOTE | 2020-01-15 19:11 | NUR ---
NURSE HAND-OFF REPORT: Latest Vital Signs: Temperature 99.8 , Pulse 96 , B/P 129 /52 , Respiratory Rate 27 , O2 SAT 93 , Mechanical Ventilator, O2 Flow Rate 10.0 . Vital Sign Comment: EKG Rhythm: Atrial Fibrillation Rhythm change?: N Notified?: Eliezer Gaming MD Response: No New Orders Received Latest [place] Fall Score: 70 Fall Risk: High Risk Safety Measures: Call light Within Reach, Bed Alarm Zone 2, Side Rails Side Rails x3, Bed position Low and Locked. Fall Precautions: Door Sign Report given to ALEX Moya. remains on 5mg/hr with heart rate at 90-98 in a-fibb.. Addendum: 01/15/20 at 1925 by Mehrdad Mcneil RN report given to ALEX tineo. as states above.
--- NOTE | 2020-01-15 19:30 | NUR ---
NURSE NOTES: Received report from ALEX Cronin. Patient is comatose with a hypoactive gag reflex and does not withdraw to pain. Afib on teletypesetter monitor. Patient is orally intubated. 7.5 ETT, 23cm @lipline (20cm noted). Settings: AC 16 TV 600 FiO2 100% PEEP 5; however, per AMRN, ETT position is misplaced. TV shows 250 and air space sound and gurgling sound listened. Left Subclavian TLC running Cardizem @ 5mcgs/hr, dressing is soiled. RIJ with Patrick, dressing is soiled. OGT tube feeds, Nepro @40ml/hr was HOLD due to Pt vomit several times during the AM shift. Safety measures observed will contact Dr. Ely SMITH and continue to monitor.
--- NOTE | 2020-01-15 19:35 | NUR ---
NURSE NOTES: Contacted Dr. Graves and explained what's going on (VS, TV matter, lip line 20cm, X-ray what I see, and listened air space and gurgling sound.) Asked RT, Rafa joined the conversation with Ely and notified him that RT cannot suction well and does recommend re-intubation. Dr. Graves will contact Dr. Peralta at ED in regarding to re-intubation.
--- NOTE | 2020-01-15 19:45 | NUR ---
NURSE NOTES: Dr. Peralta came up to ICU to re-intubate Pt. Primary RN, RT and Dr. Peralta are at the bedside to start reintubate Pt at 1999. Reintubation was successfully done at 2014. Xray ordered. Pt is asymptomatic.
--- NOTE | 2020-01-15 20:20 | NUR ---
NURSE NOTES: Chest Xray is done. Per Dr. Peralta, 1cm needs to be out. RT and Promary RN are at the bedside.
--- NOTE | 2020-01-15 20:28 | Emergency Room Report ---
History of Present Illness General Chief Complaint: Dyspnea/Respdistress Source: Medical Record, PMD Present Illness Allergies: Coded Allergies: DOXYCYCLINE (Verified Allergy, Unknown, 04/04/19) RIFAMPIN (Verified Allergy, Unknown, 04/04/19) COVID-19 Screening Contact w/high risk pt: Yes Experienced COVID-19 symptoms?: Yes COVID-19 Testing performed EQUITIES TRADER: No COVID-19 Screening: Positive COVID-19 Patient History Now: No Nursing Documentation-PMH Past Medical History: No History, Except For Hx Cardiac Problems: Yes - AFIB, ANEMIA, ATHEROSCLEROTIC HEART DISEASE Hx COPD: Yes Hx Cancer: No Hx Gastrointestinal Problems: Yes - METABOLIC ENCEPHALOPATHY, UNSPECIFIED DUODENAL ULCER WITH HEMORRHAGE Hx Neurological Problems: No Physical Exam Vital Signs Date Time Temp Pulse Resp B/P (MAP) Pulse Ox O2 Delivery O2 Flow Rate FiO2 01/11/20 07:00 81 25 122/47 (72) 95 01/11/20 07:15 80 01/11/20 07:30 100.2 01/11/20 08:00 Mechanical Ventilator Mechanical Ventilator Procedures Intubation Intubation : Consent: Emergent Time of Intubation: 20:27 Intubation Method: orotracheal Tube Size (cm): 7.0 Medications: Etomidate, Rocuronium Breath Sounds after Intubation: equal Intubation Complications: no complications Post Intubation Xray: Yes Attempts: One Patient Tolerated: Well Complications: None Progress ETT secured to 23 cm at teeth, large amount of bloody secretions. Medical Decision Making Diagnostic Impression: Primary Impression: 2019 novel coronavirus detected Additional Impressions: Chronic respiratory failure Atrial fibrillation CHF (congestive heart failure) CO2 retention Last Vital Signs Date Time Temp Pulse Resp B/P (MAP) Pulse Ox O2 Delivery O2 Flow Rate FiO2 01/15/20 19:00 96 27 129/52 (77) 93 01/15/20 16:16 100 01/15/20 16:00 Mechanical Ventilator Mechanical Ventilator 01/15/20 16:00 99.8 Disposition: ADMITTED INPATIENT Condition: Serious Referrals: NON PHYSICIAN (PCP) Chandler Peralta MD Jan 15, 2020 20:28
[2020-01-15] MEDS: Dyna-Hex 2% Top Sol 2oz TOPIC SCH (20:40)
--- NOTE | 2020-01-15 20:44 | NUR ---
RESPIRATORY NOTE: Patient was successfully reintubated by Dr. Peralta at 20:15 with an ETT tube 7.0 at 26cm at the lip. Patient is now successfully getting the targeted volumes set by the vent.
--- NOTE | 2020-01-15 20:45 | NUR ---
NURSE NOTES: Rt successfully pulled back 1cm.
--- NOTE | 2020-01-15 22:51 | Diagnostic Imaging Report ---
EXAM: XR Chest, 1 View CLINICAL HISTORY: S/P INTUB TECHNIQUE: Frontal view of the chest. COMPARISON: 01/15/20 0733 hrs. FINDINGS: ETT terminates at the orifice for the right mainstem bronchus, recommend retraction of approximately 3 cm. Right IJ line terminates in the region of the SVC. At least mild cardiac enlargement. Patchy areas of confluent consolidation in both lungs may reflect bilateral pneumonia, ARDS or asymmetric pulmonary edema. Negative for pneumothorax or pleural fluid collections. <MYCVCSECTION> Communications: 01/15/20 23:10 Verify Receipt Verified receipt with ICU viscera washerALEX Mckeon on 01/14 23:10 (-07:00)
[2020-01-16] VITALS (40 sets, daily range): BP systolic 93–156; BP diastolic 40–60
--- NOTE | 2020-01-16 | NUR ---
NURSE NOTES: Received 3cm out from Dr. Cole. RT will pull back 2 more cm.
--- NOTE | 2020-01-16 | NUR ---
NURSE NOTES: Per Dr. Page, HOLD feeding for tonight. Notified to Dr. Graves VS and BG 118 at 0000.
[2020-01-16] MEDS: Meropenem 500mg/NS 55ml IVPB SCH ×6 (00:07→16:32)
--- NOTE | 2020-01-16 02:00 | NUR ---
NURSE NOTES: AM care provided. Changed soiled gown, linens, Chucks. Changed left hand K-ling gaze for weeping. Left lip skin tear used stristrip, CDI. Inside of lip line, inserted gauze to stop bleeding. Heparin DC by MD Ely Kelsey care, Oral care provided. Turned and repositioned SpO2 100% Safety measures observed and no acute distress noted. Will continue to monitor.
--- NOTE | 2020-01-16 04:00 | NUR ---
NURSE NOTES: Turned and repositioned. Oral care provided and changed inside lip gaze. Afebrile and VSS. Safety measures observed and no acute diastree noted. Will continue to monitor.
[2020-01-16 06:00] LABS: HEMATOCRIT 26.5 % (37.0-47.0); HEMOGLOBIN 8.4 G/DL (12.0-16.0); MEAN CORPUSCULAR VOLUME 84 FL (80-99); PLATELET COUNT 134 K/UL (150-450); RED BLOOD COUNT 3.16 M/UL (4.20-5.40); RED CELL DISTRIBUTION WIDTH 16.1 % (11.6-14.8)
[2020-01-16] MEDS: NovoLOG Insulin Flexpen SUBQ SCH ×4 (06:00→18:00)
--- NOTE | 2020-01-16 06:00 | NUR ---
NURSE NOTES: 0500 BP 93/52 and 0600 94/57. Diltiazem gtt decreased to 2.5mL
[2020-01-16 06:28] LABS: WHITE BLOOD COUNT 26.1 K/UL (4.8-10.8)
[2020-01-16 06:37] LABS: ALBUMIN 1.7 G/DL (3.4-5.0); ALBUMIN/GLOBULIN RATIO 0.4 (1.0-2.7); BILIRUBIN,TOTAL 0.4 MG/DL (0.2-1.0); CALCIUM 8.7 MG/DL (8.5-10.1); CREATININE 3.7 MG/DL (0.55-1.30); POTASSIUM 4.1 MMOL/L (3.5-5.1)
--- NOTE | 2020-01-16 07:27 | NUR ---
HAND-OFF: Report given to ALEX Myles. Endorsed POC.
--- NOTE | 2020-01-16 07:30 | NUR ---
NURSE NOTES: Received report from ALEX Flanagan. The patient is resting on the bed without acute distress or shortness of breath. The patient is obtunded and only minimal movement noted with deep painful stimuli. Communication made by facial expression and body movement. The patient is on Afib w/ RVR w/ HR fluctuating from 90-110s at this time. The patient is on Cardizem drip with rate of 2.5mg/hr at this time. The patient has ETT on following setting and oxygen saturation is 98-100%: ETT 7.0, 25cm @ Lip line, AC 20, TV 600, FIO2 100%, PEEP 10. Per ALEX Flanagan, the patient's OGT came out during reintubation of the patient yesterday and no feeding tube at this time. Will clarify with Dr. Graves regarding reinsertion of NGT today. The patient has Kelsey and Rectal tube that is intact and draining by gravity. The patient is oliguric to anuric per ALEX Flanagan. The patient has R IJ Patrick cath for HD access and dressing intact. The patient has L subclavian TLC and Cardizem running @ 2.5mg/hr and kept in TKO. Dressing intact at this time. The patient noted oral bleeding and skin tear on L lip area covered with gauze and steri-strip. The patient is scheduled for HD today. The patient's bed in the lowest position, call light in reach, and fall and aspiration precaution reinforced. IV site intact and patent. Will follow up the lab and order. Will closely monitor the patient. Will continue plan of care.
--- NOTE | 2020-01-16 08:00 | NUR ---
NURSE NOTES: Initial nursing assessment done. Initial vital signs taken. The patient is stable at this time. Will continue plan of care.
[2020-01-16] MEDS ORDERED: dilTIAZem Premix 125mg/125ml 125 ML IVPB SCH (08:15)
--- NOTE | 2020-01-16 08:30 | NUR ---
NURSE NOTES: Dr. Mandel at the bedside assessed the patient. Notified abnormal lab including WBC, hemoglobin, BUN, and Cr. Notified trend of vital signs and blood sugar with NPO status now. Confirmed HD schedule with Dr. Mandel. Called [facility] and spoke with Alisa @ [facility] regarding confirmation of HD schedule today. Per. Dr. Mandel, he will review and put additional order if needed. Will closely monitor the patient. Will continue plan of care.
--- NOTE | 2020-01-16 08:35 | Diagnostic Imaging Report ---
EXAM: XR Chest, 1 View CLINICAL HISTORY: POST-OP TECHNIQUE: Frontal view of the chest. COMPARISON: Chest radiograph January 15, 2020 FINDINGS: Endotracheal tube terminates 3.5 cm above the garrett. Right internal jugular catheter terminates in the superior vena cava. Left subclavian catheter terminates in the superior vena cava. Extensive bilateral patchy airspace opacities, consistent with multifocal infiltrate/ARDS, which is minimally improved on the left. Small right pleural effusion. No pneumothorax. Cardiomegaly. Calcified aorta. IMPRESSION: Minimal improvement in the degree of airspace opacity involving the left lower lung field. No pneumothorax.
[2020-01-16] MEDS: Renvela 800mg Pkt NG SCH ×3 (09:00→18:16)
--- NOTE | 2020-01-16 09:30 | NUR ---
NURSE NOTES: Dr. Graves at the bedside assessed the patient. Notified abnormal lab including WBC, Hgb, Plt, BUN, Cr, reintubation status with current vent setting, oral bleeding, no OGT and NGT at this time, and vital signs trend. Dr. Graves ordered to insert NGT, ABG, CXR, KUB for NGT placement, NS 500mL bolus for BP support, hold NG medication until reinsertion of NGT. Dr. Graves ordered to change PEEP from 10 to 8. Will carry out the order as soon as possible. Will continue plan of care.
[2020-01-16] MEDS: Pantoprazole Inj IV SCH ×2 (09:35→20:35)
[2020-01-16] MEDS: dilTIAZem HCL 125 MG in NS 100 ML IVPB SCH (09:59)
--- NOTE | 2020-01-16 10:00 | NUR ---
NURSE NOTES: Medications administered per order. New bag of Cardizem started with same rate of 2.5mg/hr. Unable to administer NGT medication since the patient does not have OGT or NGT at this time. New NGT inserted per Dr. Graves's order. Will check the placement and obtain okay to use NGT order form Dr. Graves. Will closely monitor the patient. Will continue plan of care.
--- NOTE | 2020-01-16 10:18 | NUR ---
RESPIRATORY NOTE: Decreased PEEP to 8 per MD order.
--- NOTE | 2020-01-16 10:30 | NUR ---
NURSE NOTES: Dr. Eaton at the bedside assessed the patient. Per Dr. Eaton, continue Cardizem IV drip and HR of 100-120s is acceptable range. Dr. Eaton ordered Levophed as a back up during HD. Will carry out the order as soon as possible. Will closely monitor the patient. Will continue plan of care. Addendum: 01/16/20 at 2152 by Aryan Zepeda RN Per Dr. Basilio, hold Cardizem drip only during HD.
[2020-01-16] MEDS: Norepinephrine 4mg/NS Premix 250 ML IV SCH (10:39)
--- NOTE | 2020-01-16 10:49 | Cardiology Progress Note ---
Assessment/Plan Assessment/Plan paf now persistent afib pneumonia pulm htn 90's copd dm acute covid 19 infection diastolic failure cardiopulm arrest (pt was found off bipap) respiratory acidosis ARF abn lft probable shock liver imporved abn trop likey realted to cpr anoxic encephalopathy cxr personally reviewed s/p remdezivir on empiric abx and steroids personally reviewed tele:afib on iv dilt hr controlled but nelson lowered as bp is lower dig level ok will intermittently dose dig supportive care at this time not need pressror but diana be observed for need specailly durign dialysis vent support heparin for dvt ppx in the settign of unstable renal function post arf remains critically ill and at risk of dying advanced directives noted poa avaiaLBE awaits dialysis wbc is high but improved form yest , febrile ett was reinserted yest now better oxygenation on loer fio2 and peep Subjective Subjective remain on the vent not responsive per rn ett changed yest due to mal function / mal position Objective Last 24 Hour Vital Signs Date Time Temp Pulse Resp B/P (MAP) Pulse Ox O2 Delivery O2 Flow Rate FiO2 01/16/20 10:19 80 01/16/20 10:00 107 20 106/59 (75) 100 01/16/20 09:59 103 96/48 01/16/20 09:50 100 01/16/20 09:00 106 16 96/48 (64) 100 01/16/20 08:00 99.2 101 16 100/54 (69) 100 01/16/20 08:00 99 01/16/20 08:00 Mechanical Ventilator Mechanical Ventilator 01/16/20 08:00 100 01/16/20 07:00 100 20 95/57 (70) 100 01/16/20 06:50 104 20 100 01/16/20 06:00 100 20 93/57 (69) 100 01/16/20 05:00 97 20 93/52 (66) 95 01/16/20 04:00 97 20 109/53 (71) 100 01/16/20 04:00 100 01/16/20 04:00 97 01/16/20 04:00 Mechanical Ventilator Mechanical Ventilator 01/16/20 03:35 95 20 100 01/16/20 03:00 97 20 105/51 (69) 100 01/16/20 02:00 100 20 105/53 (70) 100 01/16/20 01:00 101 20 99/52 (68) 97 01/16/20 00:00 98 20 106/43 (64) 01/16/20 00:00 98 01/16/20 00:00 100 01/16/20 00:00 Mechanical Ventilator Mechanical Ventilator 01/15/20 23:17 108 20 100 01/15/20 23:00 97 19 98/43 (61) 100 01/15/20 22:00 94 20 102/46 (64) 01/15/20 21:00 91 20 107/50 (69) 01/15/20 20:00 95 20 103/38 (59) 95 01/15/20 20:00 Mechanical Ventilator Mechanical Ventilator 01/15/20 19:15 109 27 100 01/15/20 19:00 96 27 129/52 (77) 93 01/15/20 18:30 101 24 135/49 (77) 94 01/15/20 18:00 100 22 145/55 (85) 95 01/15/20 17:30 94 21 136/75 (95) 96 01/15/20 17:00 91 21 127/59 (81) 99 01/15/20 16:30 96 20 131/58 (82) 98 01/15/20 16:16 100 01/15/20 16:00 Mechanical Ventilator Mechanical Ventilator 01/15/20 16:00 100 20 126/57 (80) 99 01/15/20 16:00 99.8 96 20 123/53 (76) 99 01/15/20 16:00 105 01/15/20 15:30 89 21 123/53 (76) 98 01/15/20 15:18 112 24 100 01/15/20 15:00 94 22 127/46 (73) 96 01/15/20 14:30 93 25 122/57 (78) 97 01/15/20 14:00 95 23 127/62 (83) 98 01/15/20 13:30 93 20 119/47 (71) 99 01/15/20 13:00 99 20 121/44 (69) 100 01/15/20 12:30 100.1 94 20 118/44 (68) 100 01/15/20 12:00 92 21 112/44 (66) 100 01/15/20 12:00 Mechanical Ventilator Mechanical Ventilator 01/15/20 12:00 100 01/15/20 11:30 96 20 112/44 (66) 100 01/15/20 11:21 90 20 100 01/15/20 11:00 95 20 117/46 (69) 98 General Appearance: WD/WN Intake and Output 01/15/20 01/16/20 19:00 07:00 Intake Total 786.166 ml 55.0 ml Output Total 255 ml 30 ml Balance 531.166 ml 25.0 ml Free Water 130 ml IV Total 216.166 ml 55.0 ml Tube Feeding 400 ml 0 ml Other 40 ml Output Urine Total 5 ml 30 ml Stool Total 250 ml # Bowel Movements 80 Laboratory Tests Test 01/15/20 12:15 01/15/20 17:48 01/16/20 03:55 01/16/20 08:10 POC Whole Blood Glucose 135 MG/DL (74-106) H 148 MG/DL (74-106) H White Blood Count 26.1 K/UL (4.8-10.8) *H Red Blood Count 3.16 M/UL (4.20-5.40) L Hemoglobin 8.4 G/DL (12.0-16.0) L Hematocrit 26.5 % (37.0-47.0) L Mean Corpuscular Volume 84 FL (80-99) Mean Corpuscular Hemoglobin 26.6 PG (27.0-31.0) L Mean Corpuscular Hemoglobin Concent 31.6 G/DL (32.0-36.0) L Red Cell Distribution Width 16.1 % (11.6-14.8) H Platelet Count 134 K/UL (150-450) L Mean Platelet Volume 6.0 FL (6.5-10.1) L Neutrophils (%) (Auto) % (45.0-75.0) Lymphocytes (%) (Auto) % (20.0-45.0) Monocytes (%) (Auto) % (1.0-10.0) Eosinophils (%) (Auto) % (0.0-3.0) Basophils (%) (Auto) % (0.0-2.0) Neutrophils % (Manual) Pending Lymphocytes % (Manual) Pending Platelet Estimate Pending Platelet Morphology Pending Sodium Level 139 MMOL/L (136-145) Potassium Level 4.1 MMOL/L (3.5-5.1) Chloride Level 104 MMOL/L (98-107) Carbon Dioxide Level 20 MMOL/L (21-32) L Anion Gap 15 mmol/L (5-15) Blood Urea Nitrogen 83 mg/dL (7-18) H Creatinine 3.7 MG/DL (0.55-1.30) H Estimat Glomerular Filtration Rate 11.6 mL/min (>60) Glucose Level 97 MG/DL (74-106) Calcium Level 8.7 MG/DL (8.5-10.1) Total Bilirubin 0.4 MG/DL (0.2-1.0) Aspartate Amino Transf (AST/SGOT) 43 U/L (15-37) H Alanine Aminotransferase (ALT/SGPT) 53 U/L (12-78) Alkaline Phosphatase 97 U/L (46-116) Total Protein 5.6 G/DL (6.4-8.2) L Albumin 1.7 G/DL (3.4-5.0) L Globulin 3.9 g/dL Albumin/Globulin Ratio 0.4 (1.0-2.7) L Arterial Blood pH 7.329 (7.350-7.450) Arterial Blood Partial Pressure CO2 39.9 mmHg (35.0-45.0) Arterial Blood Partial Pressure O2 162.9 mmHg (75.0-100.0) H Arterial Blood HCO3 20.5 mmol/L (22.0-26.0) L Arterial Blood Oxygen Saturation 98.5 % (95-100) Arterial Blood Base Excess -5.0 (-2-2) L Chester Test Positive Test 01/16/20 10:27 POC Whole Blood Glucose Pending Microbiology Date/Time Source Procedure Growth Status 01/14/20 13:45 Sputum Gram Stain - Final Resulted 01/14/20 13:45 Sputum Culture - Preliminary Gram Negative Brandon Yeast Species Resulted 01/13/20 12:50 Urine,Clean Catch Urine Culture - Preliminary YEAST Resulted Objective pt with covid exam deferred remain on the vent no communicative per rn sig secretion bloody Left lip skin tear used stristrip, CDI. Inside of lip line, inserted gauze to stop bleeding. Heparin DC by MD Ely Kelsey care, Oral care provided. Turned and repositioned SpO2 100% Safety measures observed and no acute distress noted. Will continue to monitor Reginaldo aGming MD Jan 16, 2020 10:49
--- NOTE | 2020-01-16 11:28 | Nephrology Progress Note ---
Assessment/Plan Problem List: (1) BORIS (acute kidney injury) (2) 2019 novel coronavirus detected (3) Hypothyroidism (4) Diabetes mellitus (5) Atrial fibrillation (6) Shock liver Assessment 85-year-old female admitted 5 days ago, at the time serum creatinine was 0.9 and today the serum creatinine is 1.4, most likely BORIS Hypernatremia secondary to free water deficit Prerenal azotemia COVID-19 virus detected Acute on chronic systolic congestive heart failure Atrial fibrillation Diabetes mellitus Hypothyroidism Hypertension Acute on chronic respiratory failure Plan January 15: Due for dialysis today. Patient hypotensive. Will start pressors and midodrine if needed. Will aim to dialyze and remove excess fluid as possible. Patient full code. Prognosis poor. January 14: Dialyzed yesterday. 2000 mL fluid ultrafiltrated during dialysis. Will dialyze again tomorrow. Continue per consultants. Labs reviewed. Medication list reviewed. Continue as is. January 13: Creatinine rising. Other labs and medication reviewed. Patient intubated. Patient full code. Consent for dialysis catheter is obtained. Will order dialysis after insertion of the non-tunneled dialysis catheter. Discussed with ALEX Hernandez. January 12: Serum creatinine rising. Patient was transfused. Remains full code. Remains intubated on ventilator. Will get consent for placement of non- tunneled dialysis catheter. Further worsening renal parameters may lead to the need for dialysis treatment. Per orders. January 11: Labs reviewed. Serum creatinine higher. Hemoglobin lower. Transfusion 2 units packed RBCs today. Continue to monitor renal parameters. Avoid nephrotoxic's. January 10: Labs reviewed. Serum creatinine 2.5. Liver enzymes are lowering. Remains full code. Remains intubated. Electrolyte abnormalities addressed. Continue per consultants. January 09: Lab reviewed. Serum creatinine lower at 2.6. Liver enzymes are lowering. Patient remains full code and remains intubated. Continue current management. Continue to follow renal parameters. Continue per consultants. Start Cardizem 30 mg every 8 hours via NG tube for elevated blood pressure January 08: Lab reviewed. Serum creatinine 2.8. LFTs improving. Remains intubated. Remains full code. Continue per consultants. Continue to monitor renal parameters. Avoid nephrotoxic's as possible. January 07: Labs reviewed. Serum creatinine robby to 2.9. Liver enzymes are improving. Patient off pressors. Patient full code. Patient intubated on ventilator. Continue to monitor renal parameters. IV fluid changed to normal saline. Continue per consultants. Anemia work-up initiated, iron panel B12 and folate level ordered. January 06: Labs reviewed. Serum creatinine up to 2.6. Medications reviewed. Continue to follow renal parameters and electrolytes. Continue to monitor live r enzymes. Allopurinol for high uric acid given. Discussed with RN. January 05: Blood pressure stable off pressors. Continue IV fluids. Monitor renal parameters. Monitor liver function tests. Hold oral Synthroid at this time. Continue treatment for sepsis and COVID-19 infection IV fluids Keep the blood pressure over 100 systolic Monitor renal parameters and electrolytes Monitor liver function tests Avoid nephrotoxic's as possible Urine studies Digoxin level Thyroid function tests Per orders Subjective ROS Limited/Unobtainable: Yes Objective Objective Last 24 Hour Vital Signs Date Time Temp Pulse Resp B/P (MAP) Pulse Ox O2 Delivery O2 Flow Rate FiO2 01/16/20 11:00 103 20 110/55 (73) 99 01/16/20 10:19 80 01/16/20 10:00 107 20 106/59 (75) 100 01/16/20 09:59 103 96/48 01/16/20 09:50 100 01/16/20 09:00 106 16 96/48 (64) 100 01/16/20 08:00 99.2 101 16 100/54 (69) 100 01/16/20 08:00 99 01/16/20 08:00 Mechanical Ventilator Mechanical Ventilator 01/16/20 08:00 Mechanical Ventilator Mechanical Ventilator 01/16/20 08:00 100 01/16/20 07:00 100 20 95/57 (70) 100 01/16/20 06:50 104 20 100 01/16/20 06:00 100 20 93/57 (69) 100 01/16/20 05:00 97 20 93/52 (66) 95 01/16/20 04:00 97 20 109/53 (71) 100 01/16/20 04:00 100 01/16/20 04:00 97 01/16/20 04:00 Mechanical Ventilator Mechanical Ventilator 01/16/20 03:35 95 20 100 01/16/20 03:00 97 20 105/51 (69) 100 01/16/20 02:00 100 20 105/53 (70) 100 01/16/20 01:00 101 20 99/52 (68) 97 01/16/20 00:00 98 20 106/43 (64) 01/16/20 00:00 98 01/16/20 00:00 100 01/16/20 00:00 Mechanical Ventilator Mechanical Ventilator 01/15/20 23:17 108 20 100 01/15/20 23:00 97 19 98/43 (61) 100 01/15/20 22:00 94 20 102/46 (64) 01/15/20 21:00 91 20 107/50 (69) 01/15/20 20:00 95 20 103/38 (59) 95 01/15/20 20:00 Mechanical Ventilator Mechanical Ventilator 01/15/20 19:15 109 27 100 01/15/20 19:00 96 27 129/52 (77) 93 01/15/20 18:30 101 24 135/49 (77) 94 01/15/20 18:00 100 22 145/55 (85) 95 01/15/20 17:30 94 21 136/75 (95) 96 01/15/20 17:00 91 21 127/59 (81) 99 01/15/20 16:30 96 20 131/58 (82) 98 01/15/20 16:16 100 01/15/20 16:00 Mechanical Ventilator Mechanical Ventilator 01/15/20 16:00 100 20 126/57 (80) 99 01/15/20 16:00 99.8 96 20 123/53 (76) 99 01/15/20 16:00 105 01/15/20 15:30 89 21 123/53 (76) 98 01/15/20 15:18 112 24 100 01/15/20 15:00 94 22 127/46 (73) 96 01/15/20 14:30 93 25 122/57 (78) 97 01/15/20 14:00 95 23 127/62 (83) 98 01/15/20 13:30 93 20 119/47 (71) 99 01/15/20 13:00 99 20 121/44 (69) 100 01/15/20 12:30 100.1 94 20 118/44 (68) 100 01/15/20 12:00 92 21 112/44 (66) 100 01/15/20 12:00 Mechanical Ventilator Mechanical Ventilator 01/15/20 12:00 100 01/15/20 11:30 96 20 112/44 (66) 100 Intake and Output 01/15/20 01/16/20 19:00 07:00 Intake Total 786.166 ml 55.0 ml Output Total 255 ml 30 ml Balance 531.166 ml 25.0 ml Free Water 130 ml IV Total 216.166 ml 55.0 ml Tube Feeding 400 ml 0 ml Other 40 ml Output Urine Total 5 ml 30 ml Stool Total 250 ml # Bowel Movements 80 Laboratory Tests 01/15/20 12:15: POC Whole Blood Glucose 135H 01/15/20 17:48: POC Whole Blood Glucose 148H 01/16/20 03:55: White Blood Count 26.1*H, Red Blood Count 3.16L, Hemoglobin 8.4L, Hematocrit 26.5L, Mean Corpuscular Volume 84, Mean Corpuscular Hemoglobin 26.6L, Mean Corpuscular Hemoglobin Concent 31.6L, Red Cell Distribution Width 16.1H, Platelet Count 134L, Mean Platelet Volume 6.0L, Neutrophils (%) (Auto) , Lymphocytes (%) (Auto) , Monocytes (%) (Auto) , Eosinophils (%) (Auto) , Basophils (%) (Auto) , Neutrophils % (Manual) [Pending], Lymphocytes % (Manual) [Pending], Platelet Estimate [Pending], Platelet Morphology [Pending], Sodium Level 139, Potassium Level 4.1, Chloride Level 104, Carbon Dioxide Level 20L, Anion Gap 15, Blood Urea Nitrogen 83H, Creatinine 3.7H, Estimat Glomerular Filtration Rate 11.6, Glucose Level 97, Calcium Level 8.7, Total Bilirubin 0.4, Aspartate Amino Transf (AST/SGOT) 43H, Alanine Aminotransferase (ALT/SGPT) 53, Alkaline Phosphatase 97, Total Protein 5.6L, Albumin 1.7L, Globulin 3.9, Albumin/Globulin Ratio 0.4L 01/16/20 08:10: Arterial Blood pH 7.329L, Arterial Blood Partial Pressure CO2 39.9, Arterial Blood Partial Pressure O2 162.9H, Arterial Blood HCO3 20.5L, Arterial Blood Oxygen Saturation 98.5, Arterial Blood Base Excess -5.0L, Chester Test Positive 01/16/20 10:27: POC Whole Blood Glucose [Pending] Height (Feet): 5 Height (Inches): 2.00 Weight (Pounds): 155 General Appearance: no apparent distress EENT: other - Intubated on ventilator Cardiovascular: tachycardia Respiratory/Chest: decreased breath sounds Abdomen: distended Naun Mandel MD Jan 16, 2020 11:28
[2020-01-16] MEDS: Micafungin 100 MG in NS 110 ML IVPB SCH (11:55)
--- NOTE | 2020-01-16 12:00 | NUR ---
NURSE NOTES: The patient is resting on the bed without acute distress or shortness of breath. The patient still has oral bleeding noted. Notified to Dr. Graves again. No new order at this time. Will closely monitor the patient. Will continue plan of care. Addendum: 01/16/20 at 1456 by Aryan Zepeda RN BS 106 noted. No coverage per protocol. Will closely monitor the patient. Will continue plan of care.
--- NOTE | 2020-01-16 12:30 | NUR ---
NURSE NOTES: Started HD per Dr. Mandel's order. Called pharmacy to reschedule antibiotics to post HD time. Will administer as ordered. Will continue plan of care.
--- NOTE | 2020-01-16 12:36 | Diagnostic Imaging Report ---
EXAM: XR Abdomen, 2 Views CLINICAL HISTORY: NGT TECHNIQUE: Frontal view of the abdomen/pelvis with upright view of the abdomen. COMPARISON: Abdominal radiograph on 01/05/2020 FINDINGS: Hardware: Enteric tube likely terminates in the gastric antrum which extends low in the abdomen. Endotracheal tube terminates in the region of the mid thoracic trachea, approximately 4.3 cm above the garrett. Left- sided subclavian central venous catheter terminates in the region of the proximal SVC. Right central venous catheter also terminates in the region of the proximal SVC. Abdomen: Paucity of bowel gas. Bones: Degenerative changes of the spine. Soft tissues: Normal. Lower chest: Diffuse lung opacities bilaterally. IMPRESSION: Enteric tube likely terminates in the gastric antrum which extends low in the abdomen. Endotracheal tube terminates in the region of the mid thoracic trachea, approximately 4.3 cm above the garrett. Left-sided subclavian central venous catheter terminates in the region of the proximal SVC. Right central venous catheter also terminates in the region of the proximal SVC.
[2020-01-16] MEDS: Midodrine 10mg tab NG SCH ×2 (13:00→18:00)
--- NOTE | 2020-01-16 13:00 | NUR ---
NURSE NOTES: Dr. Yepez added antibiotics for the patient's condition. Will administer per order. Will closely monitor the patient. Will continue plan of care.
--- NOTE | 2020-01-16 13:14 | Pulmonolgy Critical Care Note ---
Critical Care - Asmt/Plan Problems: (1) Acute respiratory failure due to COVID-19 (2) BORIS (acute kidney injury) (3) Acute on chronic systolic (congestive) heart failure (4) Atrial fibrillation (5) Diabetes mellitus (6) CHF (congestive heart failure) (7) Hypothyroidism (8) Chronic respiratory failure (9) History of hypertension Respiratory: monitor respiratory rate, adjust FIO2, CXR Cardiac: continue to monitor HR/BP Renal: F/U I&O, keep IV fluid, check electrolytes Infectious Disease: check cultures Gastrointestinal: continue feedings/current rate Endocrine: monitor blood sugar, check HgA1C, continue sliding scale insulin Hematologic: monitor H/H, transfuse if hgb<8.5 Neurologic: PRN Ativan, PRN Morphine, keep patient comfortable Prophylaxis: Protonix Time Spent (Minutes): 40 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: hackler doll wigs, cardio, ID, GI Critical Care - Objective Last 24 Hour Vital Signs Date Time Temp Pulse Resp B/P (MAP) Pulse Ox O2 Delivery O2 Flow Rate FiO2 01/16/20 12:00 110 01/16/20 12:00 Mechanical Ventilator Mechanical Ventilator 01/16/20 12:00 108 20 118/51 (73) 97 01/16/20 11:40 107 20 80 01/16/20 11:00 103 20 110/55 (73) 99 01/16/20 10:19 80 01/16/20 10:00 107 20 106/59 (75) 100 01/16/20 09:59 103 96/48 01/16/20 09:50 100 01/16/20 09:00 106 16 96/48 (64) 100 01/16/20 08:00 99.2 101 16 100/54 (69) 100 01/16/20 08:00 99 01/16/20 08:00 Mechanical Ventilator Mechanical Ventilator 01/16/20 08:00 Mechanical Ventilator Mechanical Ventilator 01/16/20 08:00 100 01/16/20 07:00 100 20 95/57 (70) 100 01/16/20 06:50 104 20 100 01/16/20 06:00 100 20 93/57 (69) 100 01/16/20 05:00 97 20 93/52 (66) 95 01/16/20 04:00 97 20 109/53 (71) 100 01/16/20 04:00 100 01/16/20 04:00 97 10/4/20 04:00 Mechanical Ventilator Mechanical Ventilator 01/16/20 03:35 95 20 100 01/16/20 03:00 97 20 105/51 (69) 100 01/16/20 02:00 100 20 105/53 (70) 100 01/16/20 01:00 101 20 99/52 (68) 97 01/16/20 00:00 98 20 106/43 (64) 01/16/20 00:00 98 01/16/20 00:00 100 01/16/20 00:00 Mechanical Ventilator Mechanical Ventilator 01/15/20 23:17 108 20 100 01/15/20 23:00 97 19 98/43 (61) 100 01/15/20 22:00 94 20 102/46 (64) 01/15/20 21:00 91 20 107/50 (69) 01/15/20 20:00 95 20 103/38 (59) 95 01/15/20 20:00 Mechanical Ventilator Mechanical Ventilator 01/15/20 19:15 109 27 100 01/15/20 19:00 96 27 129/52 (77) 93 01/15/20 18:30 101 24 135/49 (77) 94 01/15/20 18:00 100 22 145/55 (85) 95 01/15/20 17:30 94 21 136/75 (95) 96 01/15/20 17:00 91 21 127/59 (81) 99 01/15/20 16:30 96 20 131/58 (82) 98 01/15/20 16:16 100 01/15/20 16:00 Mechanical Ventilator Mechanical Ventilator 01/15/20 16:00 100 20 126/57 (80) 99 01/15/20 16:00 99.8 96 20 123/53 (76) 99 01/15/20 16:00 105 01/15/20 15:30 89 21 123/53 (76) 98 01/15/20 15:18 112 24 100 01/15/20 15:00 94 22 127/46 (73) 96 01/15/20 14:30 93 25 122/57 (78) 97 01/15/20 14:00 95 23 127/62 (83) 98 01/15/20 13:30 93 20 119/47 (71) 99 Status: sedated HEENT: atraumatic, normocephalic Neck: full ROM Lungs: chest wall tender Heart: HR/BP stable Abdomen: soft, non-tender, feeding tube Extremities: no C/C/E Decubiti: location Micro: Microbiology Date/Time Source Procedure Growth Status 01/14/20 13:45 Sputum Gram Stain - Final Resulted 01/14/20 13:45 Sputum Culture - Preliminary Gram Negative Brandon Yeast Species Resulted Accucheck: 106 Critical Care - Subjective ROS Limited/Unobtainable: Yes Condition: critical EKG Rhythm: Sinus Rhythm FI02: 80 Vent Support Breath Rate: 20 Vent Support Mode: AC Vent Tidal Volume: 600 Sputum Amount: Moderate PEEP: 8.0 PIP: 48 Tube Feeding Amount: 0 I&O: Intake and Output 01/15/20 01/16/20 19:00 07:00 Intake Total 786.166 ml 55.0 ml Output Total 255 ml 30 ml Balance 531.166 ml 25.0 ml Free Water 130 ml IV Total 216.166 ml 55.0 ml Tube Feeding 400 ml 0 ml Other 40 ml Output Urine Total 5 ml 30 ml Stool Total 250 ml # Bowel Movements 80 CXR: Minimal improvement in the degree of airspace opacity involving the left lower lung field. ET-Tube: 7.0 ET Position: 25 Labs: Laboratory Tests Test 01/15/20 17:48 01/16/20 03:55 01/16/20 08:10 01/16/20 10:27 POC Whole Blood Glucose 148 MG/DL (74-106) H Pending White Blood Count 26.1 K/UL (4.8-10.8) *H Red Blood Count 3.16 M/UL (4.20-5.40) L Hemoglobin 8.4 G/DL (12.0-16.0) L Hematocrit 26.5 % (37.0-47.0) L Mean Corpuscular Volume 84 FL (80-99) Mean Corpuscular Hemoglobin 26.6 PG (27.0-31.0) L Mean Corpuscular Hemoglobin Concent 31.6 G/DL (32.0-36.0) L Red Cell Distribution Width 16.1 % (11.6-14.8) H Platelet Count 134 K/UL (150-450) L Mean Platelet Volume 6.0 FL (6.5-10.1) L Neutrophils (%) (Auto) % (45.0-75.0) Lymphocytes (%) (Auto) % (20.0-45.0) Monocytes (%) (Auto) % (1.0-10.0) Eosinophils (%) (Auto) % (0.0-3.0) Basophils (%) (Auto) % (0.0-2.0) Neutrophils % (Manual) Pending Lymphocytes % (Manual) Pending Platelet Estimate Pending Platelet Morphology Pending Sodium Level 139 MMOL/L (136-145) Potassium Level 4.1 MMOL/L (3.5-5.1) Chloride Level 104 MMOL/L (98-107) Carbon Dioxide Level 20 MMOL/L (21-32) L Anion Gap 15 mmol/L (5-15) Blood Urea Nitrogen 83 mg/dL (7-18) H Creatinine 3.7 MG/DL (0.55-1.30) H Estimat Glomerular Filtration Rate 11.6 mL/min (>60) Glucose Level 97 MG/DL (74-106) Calcium Level 8.7 MG/DL (8.5-10.1) Total Bilirubin 0.4 MG/DL (0.2-1.0) Aspartate Amino Transf (AST/SGOT) 43 U/L (15-37) H Alanine Aminotransferase (ALT/SGPT) 53 U/L (12-78) Alkaline Phosphatase 97 U/L (46-116) Total Protein 5.6 G/DL (6.4-8.2) L Albumin 1.7 G/DL (3.4-5.0) L Globulin 3.9 g/dL Albumin/Globulin Ratio 0.4 (1.0-2.7) L Arterial Blood pH 7.329 (7.350-7.450) Arterial Blood Partial Pressure CO2 39.9 mmHg (35.0-45.0) Arterial Blood Partial Pressure O2 162.9 mmHg (75.0-100.0) H Arterial Blood HCO3 20.5 mmol/L (22.0-26.0) L Arterial Blood Oxygen Saturation 98.5 % (95-100) Arterial Blood Base Excess -5.0 (-2-2) L Chester Test Positive Test 01/16/20 12:16 POC Whole Blood Glucose Pending Ann-Marie Graves MD Jan 16, 2020 13:14
--- NOTE | 2020-01-16 13:30 | NUR ---
NURSE NOTES: Unable to administer NGT medication at this time since Dr. Graves did not order okay to use NGT order yet. Will obtain order as soon as possible. Will continue plan of care.
[2020-01-16] MEDS ORDERED: Linezolid 600mg/300ml (Pre-Mix) IVPB SCH (14:00)
--- NOTE | 2020-01-16 14:30 | NUR ---
NURSE NOTES: Dr. Graves ordered okay to use NGT with NGT @ 65cm. Notified again regarding oral bleeding. No new order regarding oral bleeding at this time. Will restart feeding as ordered. Will continue plan of care.
--- NOTE | 2020-01-16 14:50 | NUR ---
NURSE NOTES: The patient is getting HD per Dr. Mandel's order. Tolerating well. Cardizem drip on hold per Dr. Basilio's order only during HD and back up levo is ready. Stable vital signs noted at this time. Will closely monitor the patient. Will continue plan of care.
[2020-01-16] MEDS ORDERED: Etomidate 40mg/20ml Inj IV ONE (15:59)
[2020-01-16] MEDS ORDERED: D5NS 1000ml IV ONE (16:00)
--- NOTE | 2020-01-16 16:00 | NUR ---
NURSE NOTES: Completed HD per order. The patient tolerated well. Per HD nurse, 2L out per order. Will continue plan of care.
--- NOTE | 2020-01-16 16:18 | Surgery Progress Note ---
Surgery Progress Note Subjective Procedure Performed left subclavian central venous catheter insertion Additional Comments ill appearing no n/v Objective Last 24 Hour Vital Signs Date Time Temp Pulse Resp B/P (MAP) Pulse Ox O2 Delivery O2 Flow Rate FiO2 01/16/20 16:00 Mechanical Ventilator Mechanical Ventilator 01/16/20 16:00 97.9 104 20 128/54 (78) 99 01/16/20 16:00 107 20 118/45 (69) 99 01/16/20 16:00 80 01/16/20 16:00 80 01/16/20 16:00 101 01/16/20 15:00 108 20 137/58 (84) 100 01/16/20 14:00 102 20 127/56 (79) 97 01/16/20 13:00 107 21 131/60 (83) 97 01/16/20 13:00 107 21 131/60 (83) 97 01/16/20 12:00 110 01/16/20 12:00 Mechanical Ventilator Mechanical Ventilator 01/16/20 12:00 108 20 118/51 (73) 97 01/16/20 12:00 97.8 108 20 118/51 (73) 97 01/16/20 12:00 Mechanical Ventilator Mechanical Ventilator 01/16/20 11:40 107 20 80 01/16/20 11:00 103 20 110/55 (73) 99 01/16/20 10:19 80 01/16/20 10:00 107 20 106/59 (75) 100 01/16/20 09:59 103 96/48 01/16/20 09:50 100 01/16/20 09:00 106 16 96/48 (64) 100 01/16/20 08:00 99.2 101 16 100/54 (69) 100 01/16/20 08:00 99 01/16/20 08:00 Mechanical Ventilator Mechanical Ventilator 01/16/20 08:00 Mechanical Ventilator Mechanical Ventilator 01/16/20 08:00 100 01/16/20 07:00 100 20 95/57 (70) 100 01/16/20 06:50 104 20 100 01/16/20 06:00 100 20 93/57 (69) 100 01/16/20 05:00 97 20 93/52 (66) 95 01/16/20 04:00 97 20 109/53 (71) 100 01/16/20 04:00 100 01/16/20 04:00 97 01/16/20 04:00 Mechanical Ventilator Mechanical Ventilator 01/16/20 03:35 95 20 100 01/16/20 03:00 97 20 105/51 (69) 100 01/16/20 02:00 100 20 105/53 (70) 100 01/16/20 01:00 101 20 99/52 (68) 97 01/16/20 00:00 98 20 106/43 (64) 01/16/20 00:00 98 01/16/20 00:00 100 01/16/20 00:00 Mechanical Ventilator Mechanical Ventilator 01/15/20 23:17 108 20 100 01/15/20 23:00 97 19 98/43 (61) 100 01/15/20 22:00 94 20 102/46 (64) 01/15/20 21:00 91 20 107/50 (69) 01/15/20 20:00 95 20 103/38 (59) 95 01/15/20 20:00 Mechanical Ventilator Mechanical Ventilator 01/15/20 19:15 109 27 100 01/15/20 19:00 96 27 129/52 (77) 93 01/15/20 18:30 101 24 135/49 (77) 94 01/15/20 18:00 100 22 145/55 (85) 95 01/15/20 17:30 94 21 136/75 (95) 96 01/15/20 17:00 91 21 127/59 (81) 99 01/15/20 16:30 96 20 131/58 (82) 98 I&O Intake and Output 01/15/20 01/16/20 19:00 07:00 Intake Total 786.166 ml 55.0 ml Output Total 255 ml 30 ml Balance 531.166 ml 25.0 ml Free Water 130 ml IV Total 216.166 ml 55.0 ml Tube Feeding 400 ml 0 ml Other 40 ml Output Urine Total 5 ml 30 ml Stool Total 250 ml # Bowel Movements 80 Dressing: other Wound: other Cardiovascular: RSR Respiratory: decreased breath sounds Abdomen: soft, non-tender, present bowel sounds Extremities: no tenderness, no cyanosis Laboratory Tests Test 01/15/20 17:48 01/16/20 03:55 01/16/20 08:10 01/16/20 10:27 POC Whole Blood Glucose 148 MG/DL (74-106) H Pending White Blood Count 26.1 K/UL (4.8-10.8) *H Red Blood Count 3.16 M/UL (4.20-5.40) L Hemoglobin 8.4 G/DL (12.0-16.0) L Hematocrit 26.5 % (37.0-47.0) L Mean Corpuscular Volume 84 FL (80-99) Mean Corpuscular Hemoglobin 26.6 PG (27.0-31.0) L Mean Corpuscular Hemoglobin Concent 31.6 G/DL (32.0-36.0) L Red Cell Distribution Width 16.1 % (11.6-14.8) H Platelet Count 134 K/UL (150-450) L Mean Platelet Volume 6.0 FL (6.5-10.1) L Neutrophils (%) (Auto) % (45.0-75.0) Lymphocytes (%) (Auto) % (20.0-45.0) Monocytes (%) (Auto) % (1.0-10.0) Eosinophils (%) (Auto) % (0.0-3.0) Basophils (%) (Auto) % (0.0-2.0) Differential Total Cells Counted 100 Neutrophils % (Manual) 93 % (45-75) H Lymphocytes % (Manual) 1 % (20-45) L Monocytes % (Manual) 6 % (1-10) Eosinophils % (Manual) 0 % (0-3) Basophils % (Manual) 0 % (0-2) Band Neutrophils 0 % (0-8) Platelet Estimate Decreased L Platelet Morphology Normal Hypochromasia 2+ Anisocytosis 1+ Sodium Level 139 MMOL/L (136-145) Potassium Level 4.1 MMOL/L (3.5-5.1) Chloride Level 104 MMOL/L (98-107) Carbon Dioxide Level 20 MMOL/L (21-32) L Anion Gap 15 mmol/L (5-15) Blood Urea Nitrogen 83 mg/dL (7-18) H Creatinine 3.7 MG/DL (0.55-1.30) H Estimat Glomerular Filtration Rate 11.6 mL/min (>60) Glucose Level 97 MG/DL (74-106) Calcium Level 8.7 MG/DL (8.5-10.1) Total Bilirubin 0.4 MG/DL (0.2-1.0) Aspartate Amino Transf (AST/SGOT) 43 U/L (15-37) H Alanine Aminotransferase (ALT/SGPT) 53 U/L (12-78) Alkaline Phosphatase 97 U/L (46-116) Total Protein 5.6 G/DL (6.4-8.2) L Albumin 1.7 G/DL (3.4-5.0) L Globulin 3.9 g/dL Albumin/Globulin Ratio 0.4 (1.0-2.7) L Arterial Blood pH 7.329 (7.350-7.450) Arterial Blood Partial Pressure CO2 39.9 mmHg (35.0-45.0) Arterial Blood Partial Pressure O2 162.9 mmHg (75.0-100.0) H Arterial Blood HCO3 20.5 mmol/L (22.0-26.0) L Arterial Blood Oxygen Saturation 98.5 % (95-100) Arterial Blood Base Excess -5.0 (-2-2) L Chester Test Positive Test 01/16/20 12:16 POC Whole Blood Glucose Pending Plan Problems: (1) Acute on chronic systolic (congestive) heart failure (2) CO2 retention (3) BORIS (acute kidney injury) (4) Shock liver Assessment & Plan: Hypotensive septic acute elevation in LFTs AST ALT thousands alk phos elevated. Likely shock from hypotension and acute episode. Labs trending down. IV fluid hydration. No acute intervention. Hold on imaging. Line reviewed. No bleeding noted. All 3 ports functional. Chest x-ray reviewed. Drop in hemoglobin unlikely related to line. Will monitor. Trend labs. Transfuse PRN. And are improvement in position of previously malpositioned endotracheal tube, tip now projecting 1-2 cm above the garrett. Interim placement of an orogastric tube, tip of which projects beyond the edge of the image, presumably well within the stomach. Interim placement of a left subclavian central venous catheter, tip of which projects at the level of the innominate venous confluence. No pneumothorax. Bilateral infiltrates are again demonstrated, unchanged. Impression: Improved and now satisfactory position of endotracheal tube Interim left subclavian central venous catheter placement, no radiographically evident complication Interim orogastric intubation, apparently satisfactory Unchanged bilateral infiltrates (5) Atrial fibrillation (6) Diabetes mellitus (7) CHF (congestive heart failure) (8) Hypothyroidism Assessment & Plan: DAILY ESTIMATED NEEDS: Needs based on Critical care 54kg abw 22-30 kcals/kg 1115-2919 total kcals 1.25-2 g protein/kg 68-108 g total protein 20-25 mL/kg 2015-6700 total fluid mLs NUTRITION DIAGNOSIS: Swallowing difficulty r/t resp status as evidenced by pt adm w/ covid 19 ++, on bipap, now s/p code blue, intubated, on OGT feeds. CURRENT TF:VITAL AF 1.2 @ 55ml/hr x22 hrs ENTERAL NUTRITION RECOMMENDATIONS: VITAL AF 1.2 @ 55ml/hr x 22 hrs to provide 1210, 1452kcal, 91g prot, 981ml free water * Maintain current TF * Hold 1 hr before and after Synthroid * HOB over 30 degrees/ water flush per MD If renal fxn cont to worsen (creat 3.2 w/ phos 6.1 on 01/12) -> rec TF change to Nepro @ goal rate of 35ml/hr x 22 hrs to provide 770ml, 1386kcal, 62g prot (1.15g/kg), 560ml free water ADDITIONAL RECOMMENDATIONS: 1) Maintain calibrated bed scale wts daily 2) Monitor renal fxn and lytes, need for renal TF (creat worsening 3.2, phos 6.1) 3) Skin integrity: TF @ goal provides 100% RDI Odell BID 4) Monitor BGs, need for additional hypoglycemics (9) Chronic respiratory failure Assessment & Plan: Intubated intensive care unit weaning vent. ET tube in place. Chest x-ray reviewed. (10) History of hypertension (11) 2019 novel coronavirus detected Assessment & Plan: COVID positive as per ID and pulmonology appreciate input and care. Continue vent support wean as tolerated. (12) Acute respiratory failure due to COVID-19 Satinder Olivera Jan 16, 2020 16:18
--- NOTE | 2020-01-16 17:00 | NUR ---
NURSE NOTES: Bed bath given to the patient. Tolerated well. Tolerating vent setting and tube feeding well. Increased Diltiazem 10mg/hr per protocol. Will closely monitor the patient. Will continue plan of care.
--- NOTE | 2020-01-16 17:59 | Internal Med Progress Note ---
Subjective Date of Service: Jan 16, 2020 Physician Name GinHarris Attending Physician Fernando Peguero MD Current Medications Medications (Trade) Dose Ordered Sig/Brett Route PRN Reason Start Time Stop Time Status Last Admin Dose Admin Acetaminophen (Tylenol) 650 mg Q4H PRN ORAL FEVER 01/01/20 07:00 01/31/20 06:59 01/09/20 22:58 Acetaminophen (Tylenol) 650 mg Q4H PRN RECTAL Temp >100.5 01/03/20 09:30 02/02/20 09:29 01/03/20 12:18 Albuterol/ Ipratropium (Combivent Respimat) 1 puff Q4H PRN INH Shortness of Breath 01/05/20 20:00 02/04/20 19:59 Allopurinol (allopurinoL) 300 mg DAILY NG 01/07/20 10:45 02/06/20 10:44 01/15/20 08:46 Chlorhexidine Gluconate (Silvia-Hex 2%) 1 applic DAILY@1999 TOPIC 01/07/20 20:00 04/06/20 19:59 01/15/20 20:40 Dextrose (Dextrose 50%) 25 ml Q30M PRN IV Hypoglycemia 01/01/20 08:45 03/31/20 08:44 Dextrose (Dextrose 50%) 50 ml Q30M PRN IV Hypoglycemia 01/01/20 08:45 03/31/20 08:44 Diltiazem HCl (Cardizem) 15 mg Q12H PRN IVP For High Blood Pressure 01/03/20 07:00 02/02/20 06:59 Diltiazem HCl 125 mg/Sodium Chloride 125 ml @ 0 mls/hr Q24H IVPB 01/16/20 10:00 01/17/20 09:59 01/16/20 09:59 Insulin Aspart (NovoLOG) Q6HR SUBQ 01/09/20 00:00 03/31/20 11:29 01/15/20 17:57 Levothyroxine Sodium (Synthroid) 200 mcg DAILY@0630 ORAL 01/12/20 06:30 02/11/20 06:29 01/15/20 06:03 Linezolid 300 ml @ 300 mls/hr Q12H IVPB 01/16/20 18:00 01/23/20 17:59 Lorazepam (Ativan 2mg/ml 1ml) 2 mg Q2H PRN IV For Anxiety 01/09/20 23:45 01/16/20 23:44 01/10/20 21:38 Meropenem 500 mg/ Sodium Chloride 55 ml @ 110 mls/hr Q12H IVPB 01/16/20 17:00 01/21/20 16:59 01/16/20 16:32 Metoclopramide HCl (Reglan) 10 mg Q6H PRN IVP Nausea & Vomiting 01/11/20 12:15 02/10/20 12:14 01/13/20 06:16 Micafungin Sodium 100 mg/Sodium Chloride 110 ml @ 110 mls/hr Q24H IVPB 01/15/20 11:00 01/22/20 10:59 01/16/20 11:55 Midodrine (Pro-Amatine) 10 mg THREE TIMES A DAY NG 01/16/20 13:00 04/15/20 12:59 Morphine Sulfate (Morphine Sulfate) 4 mg Q4H PRN IVP For Pain 01/09/20 23:45 01/16/20 23:44 01/09/20 23:50 Norepinephrine Bitartrate 250 ml @ 0 mls/hr Q24H IV 01/16/20 10:39 01/19/20 10:38 Pantoprazole (Protonix) 40 mg Q12HR IV 01/05/20 21:00 02/04/20 08:59 01/16/20 09:35 Sevelamer Carbonate (Renvela) 800 mg THREE TIMES A DAY NG 01/14/20 13:00 04/13/20 12:59 01/15/20 17:39 Allergies: Coded Allergies: DOXYCYCLINE (Verified Allergy, Unknown, 04/04/19) RIFAMPIN (Verified Allergy, Unknown, 04/04/19) ROS Limited/Unobtainable: Yes Subjective 84 YO F admitted with hypoxia. Now COVID 19 pneumonia. Cover for Int med-DR Peguero. ICU. Intubated and sedated Objective Last Vital Signs Date Time Temp Pulse Resp B/P (MAP) Pulse Ox O2 Delivery O2 Flow Rate FiO2 01/16/20 17:00 110 20 132/55 (80) 96 01/16/20 16:00 Mechanical Ventilator Mechanical Ventilator 01/16/20 16:00 97.9 10/4/20 16:00 80 Laboratory Tests Test 01/16/20 03:55 01/16/20 08:10 01/16/20 10:27 01/16/20 12:16 White Blood Count 26.1 K/UL (4.8-10.8) *H Red Blood Count 3.16 M/UL (4.20-5.40) L Hemoglobin 8.4 G/DL (12.0-16.0) L Hematocrit 26.5 % (37.0-47.0) L Mean Corpuscular Volume 84 FL (80-99) Mean Corpuscular Hemoglobin 26.6 PG (27.0-31.0) L Mean Corpuscular Hemoglobin Concent 31.6 G/DL (32.0-36.0) L Red Cell Distribution Width 16.1 % (11.6-14.8) H Platelet Count 134 K/UL (150-450) L Mean Platelet Volume 6.0 FL (6.5-10.1) L Neutrophils (%) (Auto) % (45.0-75.0) Lymphocytes (%) (Auto) % (20.0-45.0) Monocytes (%) (Auto) % (1.0-10.0) Eosinophils (%) (Auto) % (0.0-3.0) Basophils (%) (Auto) % (0.0-2.0) Differential Total Cells Counted 100 Neutrophils % (Manual) 93 % (45-75) H Lymphocytes % (Manual) 1 % (20-45) L Monocytes % (Manual) 6 % (1-10) Eosinophils % (Manual) 0 % (0-3) Basophils % (Manual) 0 % (0-2) Band Neutrophils 0 % (0-8) Platelet Estimate Decreased L Platelet Morphology Normal Hypochromasia 2+ Anisocytosis 1+ Sodium Level 139 MMOL/L (136-145) Potassium Level 4.1 MMOL/L (3.5-5.1) Chloride Level 104 MMOL/L (98-107) Carbon Dioxide Level 20 MMOL/L (21-32) L Anion Gap 15 mmol/L (5-15) Blood Urea Nitrogen 83 mg/dL (7-18) H Creatinine 3.7 MG/DL (0.55-1.30) H Estimat Glomerular Filtration Rate 11.6 mL/min (>60) Glucose Level 97 MG/DL (74-106) Calcium Level 8.7 MG/DL (8.5-10.1) Total Bilirubin 0.4 MG/DL (0.2-1.0) Aspartate Amino Transf (AST/SGOT) 43 U/L (15-37) H Alanine Aminotransferase (ALT/SGPT) 53 U/L (12-78) Alkaline Phosphatase 97 U/L (46-116) Total Protein 5.6 G/DL (6.4-8.2) L Albumin 1.7 G/DL (3.4-5.0) L Globulin 3.9 g/dL Albumin/Globulin Ratio 0.4 (1.0-2.7) L Arterial Blood pH 7.329 (7.350-7.450) Arterial Blood Partial Pressure CO2 39.9 mmHg (35.0-45.0) Arterial Blood Partial Pressure O2 162.9 mmHg (75.0-100.0) H Arterial Blood HCO3 20.5 mmol/L (22.0-26.0) L Arterial Blood Oxygen Saturation 98.5 % (95-100) Arterial Blood Base Excess -5.0 (-2-2) L Chester Test Positive POC Whole Blood Glucose Pending Pending Test 01/16/20 16:43 POC Whole Blood Glucose Pending Microbiology Date/Time Source Procedure Growth Status 01/14/20 13:45 Sputum Gram Stain - Final Resulted 01/14/20 13:45 Sputum Culture - Preliminary Gram Negative Brandon Yeast Species Resulted Intake and Output 01/15/20 01/16/20 19:00 07:00 Intake Total 786.166 ml 55.0 ml Output Total 255 ml 30 ml Balance 531.166 ml 25.0 ml Free Water 130 ml IV Total 216.166 ml 55.0 ml Tube Feeding 400 ml 0 ml Other 40 ml Output Urine Total 5 ml 30 ml Stool Total 250 ml # Bowel Movements 80 Objective PHYSICAL EXAMINATION: GENERAL: The patient is a well-developed and well-nourished female, in moderate respiratory distress. HEENT: Eyes, pupils equal and responsive to light and accommodation. Extraocular movements are intact. NECK: Supple without lymphadenopathy. CHEST: Mech vent; Decreased breath sounds at bilateral bases with crackles. Otherwise, without wheezes. CARDIOVASCULAR: Regular rhythm and rate. S1, S2 normal without murmurs, rubs, or gallops. ABDOMEN: Soft, nontender, and nondistended. Positive bowel sounds. No evidence of hepatosplenomegaly. Currently, no rebound or guarding noted. EXTREMITIES: Negative for clubbing, cyanosis, or edema. RECTAL/GENITAL: Not performed. NEUROLOGIC: Cranial nerves II through XII are grossly intact without focal deficits. Assessment/Plan Assessment/Plan ASSESSMENT: This is an 84-year-old female with: 1. COVID-19 positive. 2. Bilateral pneumonia. 3. Hypertension. 4. Atrial fibrillation. 5. Chronic obstructive pulmonary disease. 6. Coronary artery disease. 7. Congestive heart failure. 8. Diabetes type 2. 9. Hypothyroidism. 10. Hypercholesterolemia. 11. Rheumatoid arthritis. 12. Gastroesophageal reflux disease. 13. Respiratory failure 14. S/P cardiac arrest 01/05/20 TREATMENT: 1. COVID-19 positive/pneumonia. Continue decadron; S/P remdesivir 1. Pulmonary/critical care=Dr. Ann-Marie Graves. 2. Hypertension. Continue hydralazine as above. 3. Atrial fibrillation. Continue digoxin as above. 4. Chronic obstructive pulmonary disease. As above, a Pulmonary consultation has been obtained with Dr. Ann-Marie Graves. The patient is currently on albuterol nebulized q.4h. p..r.n. 5. Coronary disease/congestive heart failure. An echocardiogram is pending. A Cardiology consultation has been obtained with Dr. Gaming. 6. Diabetes type 2. NovoLog sliding scale has been instituted. 7. Hypothyroidism. Continue Synthroid as above. 8. Hypercholesterolemia. Continue atorvastatin as above. 9. Rheumatoid arthritis. 10. Gastroesophageal reflux disease. Continue Protonix as above. 11. Continue mech vent per pulmonary 12. ABX=meropenem and micafungin 13. CODE STATUS: Full code 14. DVT prophylaxis: Heparin subcu. Harris Greenfield MD Jan 16, 2020 17:59
--- NOTE | 2020-01-16 18:00 | NUR ---
NURSE NOTES: Medications administered per order. Midodrine held due to elevated blood pressure. Tylenol administered for mild grade fever. BS 94 noted. No Novolog coverage per protocol. Will closely monitor the patient. Will continue plan of care.
[2020-01-16] MEDS: Linezolid 600mg/300ml (Pre-Mix) IVPB SCH (18:16)
--- NOTE | 2020-01-16 19:20 | NUR ---
NURSE HAND-OFF REPORT: Important Events on Shift: Afib w/ RVR on Cardizem drip, HD per order 2L out, Insertion NGT and started TF, Mild grade fever Patient Status: Full code, Stable Diet: Nephro @ 20mL/hr now, Goal of 40mL/hr for 22 hours Pending Orders: N Pending Results/Labs: N Pending MD notification: N Latest Vital Signs: Temperature 99.5 , Pulse 103 , B/P 137 /58 , Respiratory Rate 20 , O2 SAT 95 , Mechanical Ventilator, O2 Flow Rate 10.0 . Vital Sign Comment: Stable EKG Rhythm: Atrial Fibrillation Rhythm change?: N MD Notified?: Eliezer Gaming MD Response: No New Orders Received Latest Shaw Fall Score: 50 Fall Risk: High Risk Safety Measures: Call light Within Reach, Bed Alarm Zone 2, Side Rails Side Rails x3, Bed position Low and Locked. Fall Precautions: Yellow Socks Yellow Gown Door Sign Patient Fall Education Report given to ALEX Platt. The patient is stable at this time. Endorsed plan of care.
[2020-01-16] MEDS: Dyna-Hex 2% Top Sol 2oz TOPIC SCH (20:00)
[2020-01-17] VITALS (24 sets, daily range): BP systolic 99–141; BP diastolic 37–72
--- NOTE | 2020-01-17 | NUR ---
NURSE NOTES: BS 112 NO INSULIN COVERAGE
[2020-01-17] MEDS: dilTIAZem HCL 125 MG in NS 100 ML IVPB SCH ×3 (02:34→10:00)
--- NOTE | 2020-01-17 04:00 | NUR ---
NURSE NOTES: COMPLETE BATH ORALLY CARE BACK WOUND CARE BONE
[2020-01-17] MEDS: Meropenem 500mg/NS 55ml IVPB SCH ×4 (05:01→17:05)
[2020-01-17] MEDS: Linezolid 600mg/300ml (Pre-Mix) IVPB SCH ×2 (05:40→17:05)
[2020-01-17] MEDS: NovoLOG Insulin Flexpen SUBQ SCH ×4 (05:41→17:05)
--- NOTE | 2020-01-17 06:00 | NUR ---
NURSE NOTES: BS 135 NO INSULIN COVERAGE
[2020-01-17 07:19] LABS: HEMATOCRIT 24.7 % (37.0-47.0); MEAN CORPUSCULAR VOLUME 84 FL (80-99); PLATELET COUNT 99 K/UL (150-450); RED BLOOD COUNT 2.95 M/UL (4.20-5.40); RED CELL DISTRIBUTION WIDTH 16.6 % (11.6-14.8)
--- NOTE | 2020-01-17 07:20 | NUR ---
NURSE NOTES: Received patient with empty cardizem bag. Called pharmacy to ask them to send one up. HR 95.
--- NOTE | 2020-01-17 07:40 | NUR ---
NURSE NOTES: Report received from ALEX Villalba. Pt lying comfortably in semi-fowlers with no signs of acute distress noted. A+Ox0, with eyes closed, opens eyes minimally with deep pain. Pt nonverbal and does not follow commands. Pt Afib on the monitor @ 96. Respirations even and unlabored on mech vent with ETT 7.0, 25 cm @ the lip. Rhonchi heard bilaterally on auscultation. Vent settings AC 24 VT 600, peep of 8, 80% fio2. NG-tube noted with feeding on hold d/t synthroid and high residuals. Right subclavian TLC running cardizem drip @ 10 mg/hr. Patient has sacral wound dressed in optifoam, clean and dry. Pt's arms are edemetous, weeping, and bruised. Pt's mouth is continuously bleeding, packed with gauze. Rectal tube noted and patent. All other vitals stable as documented. Bed at lowest position, brakes engaged, siderails x3, bed alarm on, and call light within reach. Pt at stable condition at this time, will continue to monitor.
[2020-01-17 07:52] LABS: WHITE BLOOD COUNT 27.8 K/UL (4.8-10.8)
--- NOTE | 2020-01-17 07:52 | NUR ---
NURSE NOTES: accidentally spilled some of cardizem mixture from bag. Estimated around 20-30 ml. Will need next bag sooner than 8 hours. Will call pharmacy when bag needed. Vitals stable as documented.
--- NOTE | 2020-01-17 07:58 | NUR ---
NURSE NOTES: Left message with Dr. Gaming regarding renewing the order for cardizem drip; awaiting response.
--- NOTE | 2020-01-17 08:35 | NUR ---
NURSE NOTES: pt turned and repositioned. oral care done, pt suctioned.
[2020-01-17] MEDS: Pantoprazole Inj IV SCH ×2 (08:42→20:38)
[2020-01-17] MEDS: Midodrine 10mg tab NG SCH ×3 (08:43→17:05)
[2020-01-17] MEDS: Renvela 800mg Pkt NG SCH ×3 (08:45→17:05)
--- NOTE | 2020-01-17 09:05 | NUR ---
NURSE NOTES: Tube feeding on hold d/t increased residual of 120 ml.
[2020-01-17 09:25] LABS: ALBUMIN 1.9 G/DL (3.4-5.0); ALBUMIN/GLOBULIN RATIO 0.5 (1.0-2.7); BILIRUBIN,TOTAL 0.7 MG/DL (0.2-1.0); CALCIUM 8.8 MG/DL (8.5-10.1); CREATININE 2.8 MG/DL (0.55-1.30); PHOSPHORUS 4.7 MG/DL (2.5-4.9); POTASSIUM 3.9 MMOL/L (3.5-5.1)
--- NOTE | 2020-01-17 09:50 | NUR ---
NURSE NOTES: Dr. Graves @ bedside aware of all labs.
--- NOTE | 2020-01-17 09:55 | NUR ---
RADIOLOGY DEPT., CHEST X-RAY DONE.-P.DYE
--- NOTE | 2020-01-17 10:01 | NUR ---
RD ASSESSMENT & RECOMMENDATIONS SEE CARE ACTIVITY FOR COMPLETE ASSESSMENT DAILY ESTIMATED NEEDS: Needs based on Critical care, HD 54kg abw 22-30 kcals/kg 3582-1866 total kcals 1.25-2 g protein/kg 68-108 g total protein 20-25 mL/kg 0827-6723 total fluid mLs NUTRITION DIAGNOSIS: Swallowing difficulty r/t resp status as evidenced by pt adm w/ covid 19 ++, on bipap, now s/p code blue, intubated, on OGT feeds. CURRENT TF: now Nepro @40ml/hr x22 hrs ENTERAL NUTRITION RECOMMENDATIONS: Nepro @40ml/hr x22 hrs to provide 880ml, 1584 kcal, 71g pro, 640ml free H2O * Maintain current TF as tolerated w/ hemodynamic stability. * Hold 1 hr before and after Synthroid * HOB over 30 degrees/ water flush per MD * TF at goal meets 100% est needs ADDITIONAL RECOMMENDATIONS: 1) Maintain calibrated bed scale wts daily 2) Monitor renal fxn and lytes, need for renal TF (creat worsening 3.2, phos 6.1)-> now on HD, TF changed to Nepro 3) Skin integrity: Add nephrovite 1 tab qd, DONA BID 4) Monitor BGs, need for additional hypoglycemics .
--- NOTE | 2020-01-17 10:16 | Pulmonolgy Critical Care Note ---
Critical Care - Asmt/Plan Problems: (1) Acute respiratory failure due to COVID-19 (2) BORIS (acute kidney injury) (3) Acute on chronic systolic (congestive) heart failure (4) Atrial fibrillation (5) Diabetes mellitus (6) CHF (congestive heart failure) (7) Hypothyroidism (8) Chronic respiratory failure (9) History of hypertension Respiratory: monitor respiratory rate, adjust FIO2, CXR Cardiac: continue to monitor HR/BP Renal: F/U I&O, keep IV fluid, check electrolytes Infectious Disease: check cultures, continue antibiotics Gastrointestinal: continue feedings/current rate Endocrine: monitor blood sugar, continue sliding scale insulin Hematologic: monitor H/H, transfuse if hgb<8.5 Neurologic: PRN Ativan, keep patient comfortable Disposition: keep in ICU 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: 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, 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, 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 Discussed with: nurses, consultants, case management specialistmanager it training - Objective Last 24 Hour Vital Signs Date Time Temp Pulse Resp B/P (MAP) Pulse Ox O2 Delivery O2 Flow Rate FiO2 01/17/20 08:00 80 01/17/20 07:52 98 128/54 01/17/20 07:15 93 20 100 01/17/20 06:00 96 20 132/58 (82) 96 01/17/20 05:00 98 20 132/58 (82) 96 01/17/20 04:00 80 01/17/20 04:00 99.4 94 20 136/53 (80) 96 01/17/20 04:00 97 01/17/20 04:00 Mechanical Ventilator Mechanical Ventilator 01/17/20 03:30 93 20 100 01/17/20 03:00 99 20 133/59 (83) 96 01/17/20 03:00 99 20 133/59 (83) 96 01/17/20 02:34 99 135/48 01/17/20 02:00 97 20 112/58 (76) 94 01/17/20 01:00 100 22 131/49 (76) 90 01/17/20 00:00 80 01/17/20 00:00 Mechanical Ventilator Mechanical Ventilator 01/17/20 00:00 98.8 97 20 126/47 (73) 93 01/17/20 00:00 105 01/16/20 23:45 99 20 116/51 (72) 94 01/16/20 23:00 100 20 128/46 (73) 93 01/16/20 22:55 104 20 100 01/16/20 22:00 101 20 118/48 (71) 92 01/16/20 21:15 102 20 118/49 (72) 92 01/16/20 21:00 104 20 122/40 (67) 91 01/16/20 20:30 102 20 123/48 (73) 91 01/16/20 20:00 80 01/16/20 20:00 98.8 109 21 123/46 (71) 92 01/16/20 20:00 Mechanical Ventilator Mechanical Ventilator 01/16/20 20:00 106 01/16/20 19:30 107 19 140/48 (78) 95 01/16/20 19:30 106 20 100 01/16/20 19:00 103 20 137/58 (84) 95 01/16/20 18:49 99.5 01/16/20 18:30 107 19 128/47 (74) 95 01/16/20 18:00 100 18 135/53 (80) 95 01/16/20 17:30 108 17 156/50 (85) 95 01/16/20 17:00 110 20 132/55 (80) 96 01/16/20 16:30 112 20 124/56 (78) 99 01/16/20 16:00 Mechanical Ventilator Mechanical Ventilator 01/16/20 16:00 97.9 104 20 128/54 (78) 99 01/16/20 16:00 107 20 118/45 (69) 99 01/16/20 16:00 80 01/16/20 16:00 80 01/16/20 16:00 101 01/16/20 15:30 110 20 130/58 (82) 100 01/16/20 15:20 102 20 80 01/16/20 15:00 108 20 137/58 (84) 100 01/16/20 14:30 112 21 133/52 (79) 100 01/16/20 14:00 102 20 127/56 (79) 97 01/16/20 13:30 111 20 118/51 (73) 100 01/16/20 13:00 107 21 131/60 (83) 97 01/16/20 13:00 107 21 131/60 (83) 97 01/16/20 12:30 107 20 129/55 (79) 100 01/16/20 12:00 110 10/4/20 12:00 80 01/16/20 12:00 Mechanical Ventilator Mechanical Ventilator 01/16/20 12:00 108 20 118/51 (73) 97 01/16/20 12:00 97.8 108 20 118/51 (73) 97 01/16/20 12:00 108 20 118/51 (73) 97 01/16/20 12:00 Mechanical Ventilator Mechanical Ventilator 01/16/20 11:40 107 20 80 01/16/20 11:30 105 21 106/49 (68) 100 01/16/20 11:00 103 20 110/55 (73) 99 01/16/20 10:39 137/78 01/16/20 10:30 103 20 105/60 (75) 100 01/16/20 10:19 80 Status: awake Condition: critical HEENT: atraumatic Neck: full ROM Lungs: chest wall tender Heart: HR/BP stable Abdomen: soft, non-tender Extremities: no C/C/E Micro: Microbiology Date/Time Source Procedure Growth Status 01/14/20 13:45 Sputum Gram Stain - Final Resulted 01/14/20 13:45 Sputum Culture - Preliminary Gram Negative Brandon Yeast Species Resulted Accucheck: 136 Critical Care - Subjective ROS Limited/Unobtainable: Yes Condition: critical EKG Rhythm: Sinus Rhythm FI02: 80 Vent Support Breath Rate: 20 Vent Support Mode: AC Vent Tidal Volume: 600 Sputum Amount: Small PEEP: 8.0 PIP: 48 Tube Feeding Amount: 0 I&O: Intake and Output 01/16/20 01/17/20 19:00 07:00 Intake Total 366.25 ml 945 ml Output Total 2030 ml 30 ml Balance -1663.75 ml 915 ml Free Water 50 ml 25 ml IV Total 216.25 ml 725 ml Tube Feeding 100 ml 195 ml Output Urine Total 30 ml 10 ml Stool Total 20 ml Hemodialysis UF 2000 ml CXR: extensive interstitial infiltrate ET-Tube: 7.0 ET Position: 25 Labs: Laboratory Tests Test 01/16/20 10:27 01/16/20 12:16 01/16/20 16:43 01/17/20 03:57 POC Whole Blood Glucose Pending Pending Pending White Blood Count 27.8 K/UL (4.8-10.8) *H Red Blood Count 2.95 M/UL (4.20-5.40) L Hemoglobin 8.0 G/DL (12.0-16.0) L Hematocrit 24.7 % (37.0-47.0) L Mean Corpuscular Volume 84 FL (80-99) Mean Corpuscular Hemoglobin 27.1 PG (27.0-31.0) Mean Corpuscular Hemoglobin Concent 32.4 G/DL (32.0-36.0) Red Cell Distribution Width 16.6 % (11.6-14.8) H Platelet Count 99 K/UL (150-450) L Mean Platelet Volume 6.6 FL (6.5-10.1) Neutrophils (%) (Auto) % (45.0-75.0) Lymphocytes (%) (Auto) % (20.0-45.0) Monocytes (%) (Auto) % (1.0-10.0) Eosinophils (%) (Auto) % (0.0-3.0) Basophils (%) (Auto) % (0.0-2.0) Differential Total Cells Counted 100 Neutrophils % (Manual) 92 % (45-75) H Lymphocytes % (Manual) 1 % (20-45) L Monocytes % (Manual) 1 % (1-10) Eosinophils % (Manual) 0 % (0-3) Basophils % (Manual) 0 % (0-2) Band Neutrophils 6 % (0-8) Platelet Estimate Decreased L Platelet Morphology Normal Hypochromasia 3+ Schistocytes Sodium Level 141 MMOL/L (136-145) Potassium Level 3.9 MMOL/L (3.5-5.1) Chloride Level 104 MMOL/L (98-107) Carbon Dioxide Level 25 MMOL/L (21-32) Anion Gap 12 mmol/L (5-15) Blood Urea Nitrogen 48 mg/dL (7-18) H Creatinine 2.8 MG/DL (0.55-1.30) H Estimat Glomerular Filtration Rate 16.0 mL/min (>60) Glucose Level 106 MG/DL (74-106) Calcium Level 8.8 MG/DL (8.5-10.1) Phosphorus Level 4.7 MG/DL (2.5-4.9) Magnesium Level 2.1 MG/DL (1.8-2.4) Total Bilirubin 0.7 MG/DL (0.2-1.0) Aspartate Amino Transf (AST/SGOT) 51 U/L (15-37) H Alanine Aminotransferase (ALT/SGPT) 36 U/L (12-78) Alkaline Phosphatase 101 U/L (46-116) C-Reactive Protein, Quantitative 35.6 mg/dL (0.00-0.90) H Pro-B-Type Natriuretic Peptide 40594 pg/mL (0-125) H Total Protein 5.8 G/DL (6.4-8.2) L Albumin 1.9 G/DL (3.4-5.0) L Globulin 3.9 g/dL Albumin/Globulin Ratio 0.5 (1.0-2.7) L Test 01/17/20 07:50 Arterial Blood pH 7.292 (7.350-7.450) Arterial Blood Partial Pressure CO2 50.0 mmHg (35.0-45.0) H Arterial Blood Partial Pressure O2 76.1 mmHg (75.0-100.0) Arterial Blood HCO3 23.6 mmol/L (22.0-26.0) Arterial Blood Oxygen Saturation 93.6 % (95-100) L Arterial Blood Base Excess -2.9 (-2-2) L Chester Test Positive Ann-Marie Graves MD Jan 17, 2020 10:16
--- NOTE | 2020-01-17 10:20 | NUR ---
NURSE NOTES: pt turned and repositioned. Oral care done, pt suctioned.
[2020-01-17] MEDS: Norepinephrine 4mg/NS Premix 250 ML IV SCH (10:25)
[2020-01-17] MEDS: Micafungin 100 MG in NS 110 ML IVPB SCH (10:30)
[2020-01-17] MEDS: Metoclopramide 10mg/2ml Inj IVP PRN (10:32)
--- NOTE | 2020-01-17 11:06 | NUR ---
NURSE NOTES: Pt still febrile. Ice packs placed under bilateral armpits.
--- NOTE | 2020-01-17 12:29 | NUR ---
NURSE NOTES: Per teodora Herron to renew cardizem drip for today. Will order when previous bag is finished
--- NOTE | 2020-01-17 12:37 | Nephrology Progress Note ---
Assessment/Plan Problem List: (1) BORIS (acute kidney injury) (2) 2019 novel coronavirus detected (3) Hypothyroidism (4) Diabetes mellitus (5) Atrial fibrillation (6) Shock liver Assessment 85-year-old female admitted 5 days ago, at the time serum creatinine was 0.9 and today the serum creatinine is 1.4, most likely BORIS Hypernatremia secondary to free water deficit Prerenal azotemia COVID-19 virus detected Acute on chronic systolic congestive heart failure Atrial fibrillation Diabetes mellitus Hypothyroidism Hypertension Acute on chronic respiratory failure Plan January 16: Dialyzed yesterday. Ultrafiltration done 2 L. Labs reviewed. Remains intubated on ventilator. Full code. Continue to monitor renal parameters and arrange for dialysis as needed. January 15: Due for dialysis today. Patient hypotensive. Will start pressors and midodrine if needed. Will aim to dialyze and remove excess fluid as possible. Patient full code. Prognosis poor. January 14: Dialyzed yesterday. 2000 mL fluid ultrafiltrated during dialysis. Will dialyze again tomorrow. Continue per consultants. Labs reviewed. Medication list reviewed. Continue as is. January 13: Creatinine rising. Other labs and medication reviewed. Patient intubated. Patient full code. Consent for dialysis catheter is obtained. Will order dialysis after insertion of the non-tunneled dialysis catheter. Discussed with ALEX Hernandez. January 12: Serum creatinine rising. Patient was transfused. Remains full code. Remains intubated on ventilator. Will get consent for placement of non- tunneled dialysis catheter. Further worsening renal parameters may lead to the need for dialysis treatment. Per orders. January 11: Labs reviewed. Serum creatinine higher. Hemoglobin lower. Transfusion 2 units packed RBCs today. Continue to monitor renal parameters. Avoid nephrotoxic's. January 10: Labs reviewed. Serum creatinine 2.5. Liver enzymes are lowering. Remains full code. Remains intubated. Electrolyte abnormalities addressed. Continue per consultants. January 09: Lab reviewed. Serum creatinine lower at 2.6. Liver enzymes are lowering. Patient remains full code and remains intubated. Continue current management. Continue to follow renal parameters. Continue per consultants. Start Cardizem 30 mg every 8 hours via NG tube for elevated blood pressure January 08: Lab reviewed. Serum creatinine 2.8. LFTs improving. Remains intubated. Remains full code. Continue per consultants. Continue to monitor renal parameters. Avoid nephrotoxic's as possible. January 07: Labs reviewed. Serum creatinine robby to 2.9. Liver enzymes are improving. Patient off pressors. Patient full code. Patient intubated on ventilator. Continue to monitor renal parameters. IV fluid changed to normal saline. Continue per consultants. Anemia work-up initiated, iron panel B12 and folate level ordered. January 06: Labs reviewed. Serum creatinine up to 2.6. Medications reviewed. Continue to follow renal parameters and electrolytes. Continue to monitor liver enzymes. Allopurinol for high uric acid given. Discussed with RN. January 05: Blood pressure stable off pressors. Continue IV fluids. Monitor renal parameters. Monitor liver function tests. Hold oral Synthroid at this time. Continue treatment for sepsis and COVID-19 infection IV fluids Keep the blood pressure over 100 systolic Monitor renal parameters and electrolytes Monitor liver function tests Avoid nephrotoxic's as possible Urine studies Digoxin level Thyroid function tests Per orders Subjective ROS Limited/Unobtainable: Yes Objective Objective Last 24 Hour Vital Signs Date Time Temp Pulse Resp B/P (MAP) Pulse Ox O2 Delivery O2 Flow Rate FiO2 01/17/20 12:00 Mechanical Ventilator Mechanical Ventilator 01/17/20 12:00 80 01/17/20 12:00 101.0 88 24 106/42 (63) 98 01/17/20 11:00 91 24 109/42 (64) 96 01/17/20 10:07 101.0 01/17/20 10:00 93 20 106/48 (67) 96 01/17/20 10:00 97 122/53 01/17/20 09:00 97 20 117/54 (75) 96 01/17/20 08:00 80 01/17/20 08:00 Mechanical Ventilator Mechanical Ventilator 01/17/20 08:00 101.0 101 25 141/59 (86) 97 01/17/20 07:52 98 128/54 01/17/20 07:15 93 20 100 01/17/20 07:00 98 21 137/59 (85) 96 01/17/20 06:00 96 20 132/58 (82) 96 01/17/20 05:00 98 20 132/58 (82) 96 01/17/20 04:00 80 01/17/20 04:00 99.4 94 20 136/53 (80) 96 01/17/20 04:00 97 01/17/20 04:00 Mechanical Ventilator Mechanical Ventilator 01/17/20 03:30 93 20 100 01/17/20 03:00 99 20 133/59 (83) 96 01/17/20 03:00 99 20 133/59 (83) 96 01/17/20 02:34 99 135/48 01/17/20 02:00 97 20 112/58 (76) 94 01/17/20 01:00 100 22 131/49 (76) 90 01/17/20 00:00 80 01/17/20 00:00 Mechanical Ventilator Mechanical Ventilator 01/17/20 00:00 98.8 97 20 126/47 (73) 93 01/17/20 00:00 105 01/16/20 23:45 99 20 116/51 (72) 94 01/16/20 23:00 100 20 128/46 (73) 93 01/16/20 22:55 104 20 100 01/16/20 22:00 101 20 118/48 (71) 92 01/16/20 21:15 102 20 118/49 (72) 92 01/16/20 21:00 104 20 122/40 (67) 91 01/16/20 20:30 102 20 123/48 (73) 91 01/16/20 20:00 80 01/16/20 20:00 98.8 109 21 123/46 (71) 92 01/16/20 20:00 Mechanical Ventilator Mechanical Ventilator 01/16/20 20:00 106 01/16/20 19:30 107 19 140/48 (78) 95 01/16/20 19:30 106 20 100 01/16/20 19:00 103 20 137/58 (84) 95 01/16/20 18:49 99.5 01/16/20 18:30 107 19 128/47 (74) 95 01/16/20 18:00 100 18 135/53 (80) 95 01/16/20 17:30 108 17 156/50 (85) 95 01/16/20 17:00 110 20 132/55 (80) 96 01/16/20 16:30 112 20 124/56 (78) 99 01/16/20 16:00 Mechanical Ventilator Mechanical Ventilator 01/16/20 16:00 97.9 104 20 128/54 (78) 99 01/16/20 16:00 107 20 118/45 (69) 99 01/16/20 16:00 80 01/16/20 16:00 80 01/16/20 16:00 101 01/16/20 15:30 110 20 130/58 (82) 100 01/16/20 15:20 102 20 80 01/16/20 15:00 108 20 137/58 (84) 100 01/16/20 14:30 112 21 133/52 (79) 100 01/16/20 14:00 102 20 127/56 (79) 97 01/16/20 13:30 111 20 118/51 (73) 100 01/16/20 13:00 107 21 131/60 (83) 97 01/16/20 13:00 107 21 131/60 (83) 97 Intake and Output 01/16/20 01/17/20 19:00 07:00 Intake Total 366.25 ml 945 ml Output Total 2030 ml 30 ml Balance -1663.75 ml 915 ml Free Water 50 ml 25 ml IV Total 216.25 ml 725 ml Tube Feeding 100 ml 195 ml Output Urine Total 30 ml 10 ml Stool Total 20 ml Hemodialysis UF 2000 ml Laboratory Tests 01/16/20 16:43: POC Whole Blood Glucose [Pending] 01/17/20 03:57: White Blood Count 27.8*H, Red Blood Count 2.95L, Hemoglobin 8.0L, Hematocrit 24.7L, Mean Corpuscular Volume 84, Mean Corpuscular Hemoglobin 27.1, Mean Corpuscular Hemoglobin Concent 32.4, Red Cell Distribution Width 16.6H, Platelet Count 99L, Mean Platelet Volume 6.6, Neutrophils (%) (Auto) , Lymphocytes (%) (Auto) , Monocytes (%) (Auto) , Eosinophils (%) (Auto) , Basophils (%) (Auto) , Differential Total Cells Counted 100, Neutrophils % (Manual) 92H, Lymphocytes % (Manual) 1L, Monocytes % (Manual) 1, Eosinophils % (Manual) 0, Basophils % (Manual) 0, Band Neutrophils 6, Platelet Estimate DecreasedL, Platelet Morpho logy Normal, Hypochromasia 3+, Schistocytes , Sodium Level 141, Potassium Level 3.9, Chloride Level 104, Carbon Dioxide Level 25, Anion Gap 12, Blood Urea Nitrogen 48H, Creatinine 2.8H, Estimat Glomerular Filtration Rate 16.0, Glucose Level 106, Calcium Level 8.8, Phosphorus Level 4.7, Magnesium Level 2.1, Total Bilirubin 0.7, Aspartate Amino Transf (AST/SGOT) 51H, Alanine Aminotransferase (ALT/SGPT) 36, Alkaline Phosphatase 101, C-Reactive Protein, Quantitative 35.6H, Pro-B-Type Natriuretic Peptide [id number], Total Protein 5.8L, Albumin 1.9L, Globulin 3.9, Albumin/Globulin Ratio 0.5L 01/17/20 07:50: Arterial Blood pH 7.292L, Arterial Blood Partial Pressure CO2 50.0H, Arterial Blood Partial Pressure O2 76.1, Arterial Blood HCO3 23.6, Arterial Blood Oxygen Saturation 93.6L, Arterial Blood Base Excess -2.9L, Chester Test Positive Height (Feet): 5 Height (Inches): 2.00 Weight (Pounds): 155 General Appearance: no apparent distress EENT: other - Intubated on ventilator Cardiovascular: normal rate Respiratory/Chest: decreased breath sounds Abdomen: distended Naun Mandel MD Jan 17, 2020 12:37
--- NOTE | 2020-01-17 12:52 | Infectious Diseases Prog Note ---
Assessment/Plan Assessment: Asystole arrest Severe Sepsis COVID19 pneumonia Acute hypoxic resp failure sp NRB> Bipap 100% Fio2> VDRF 100% >80% -01/15 CXR:Minimal improvement in the degree of airspace opacity involving the left lower lung field.No pneumothorax. -01/13 Sp cx GNR Ucx C. albicans -01/01 CXR: Vascular congestion/developing failure and bilateral patchy infiltrates, slightly worse since prior exam. Small bilateral pleural effusions.Prominent mediastinum likely due to tortuous/ectatic thoracic aorta. -12/31 CXR: Centrally predominant interstitial and airspace opacities, pulmonary edema most likely. Cardiomegaly. Fever; recurrent Leukocytosis; improving Dm2 COPD HTN former smoker CAD CHF RA GERD hypothyroidism Afib NH resident ([facility]) Plan: -f/u Repeat Cultures - Continue Meropenem #6 - Cont Linezolid #10 - Start Micafungin #3 - 01/10 SP Zosyn #6 - 01/09/20 SP Remdesivir #5 - 01/07/20 Ceftriaxone #7 - 12/31 SP Cefepime x1, Flagyl x1 -f/u cx -Monitor CBC/CMP, temperatures -ETT/ICU care -Bcx x2 - f/u ucx and sp cx D/w RN Thank you for consulting [facility]. Will continue to follow along with you. Subjective Allergies: Coded Allergies: DOXYCYCLINE (Verified Allergy, Unknown, 04/04/19) RIFAMPIN (Verified Allergy, Unknown, 04/04/19) Tm 101 wbc and cr improving Fio2 80% Objective Last 24 Hour Vital Signs Date Time Temp Pulse Resp B/P (MAP) Pulse Ox O2 Delivery O2 Flow Rate FiO2 01/17/20 12:00 Mechanical Ventilator Mechanical Ventilator 01/17/20 12:00 80 01/17/20 12:00 101.0 88 24 106/42 (63) 98 01/17/20 11:00 91 24 109/42 (64) 96 01/17/20 10:07 101.0 01/17/20 10:00 93 20 106/48 (67) 96 01/17/20 10:00 97 122/53 01/17/20 09:00 97 20 117/54 (75) 96 01/17/20 08:00 80 01/17/20 08:00 Mechanical Ventilator Mechanical Ventilator 01/17/20 08:00 101.0 101 25 141/59 (86) 97 01/17/20 07:52 98 128/54 01/17/20 07:15 93 20 100 01/17/20 07:00 98 21 137/59 (85) 96 01/17/20 06:00 96 20 132/58 (82) 96 01/17/20 05:00 98 20 132/58 (82) 96 01/17/20 04:00 80 01/17/20 04:00 99.4 94 20 136/53 (80) 96 01/17/20 04:00 97 01/17/20 04:00 Mechanical Ventilator Mechanical Ventilator 01/17/20 03:30 93 20 100 01/17/20 03:00 99 20 133/59 (83) 96 01/17/20 03:00 99 20 133/59 (83) 96 01/17/20 02:34 99 135/48 01/17/20 02:00 97 20 112/58 (76) 94 01/17/20 01:00 100 22 131/49 (76) 90 01/17/20 00:00 80 01/17/20 00:00 Mechanical Ventilator Mechanical Ventilator 01/17/20 00:00 98.8 97 20 126/47 (73) 93 01/17/20 00:00 105 01/16/20 23:45 99 20 116/51 (72) 94 01/16/20 23:00 100 20 128/46 (73) 93 01/16/20 22:55 104 20 100 01/16/20 22:00 101 20 118/48 (71) 92 01/16/20 21:15 102 20 118/49 (72) 92 01/16/20 21:00 104 20 122/40 (67) 91 01/16/20 20:30 102 20 123/48 (73) 91 01/16/20 20:00 80 01/16/20 20:00 98.8 109 21 123/46 (71) 92 01/16/20 20:00 Mechanical Ventilator Mechanical Ventilator 01/16/20 20:00 106 01/16/20 19:30 107 19 140/48 (78) 95 01/16/20 19:30 106 20 100 01/16/20 19:00 103 20 137/58 (84) 95 01/16/20 18:49 99.5 10/4/20 18:30 107 19 128/47 (74) 95 01/16/20 18:00 100 18 135/53 (80) 95 01/16/20 17:30 108 17 156/50 (85) 95 01/16/20 17:00 110 20 132/55 (80) 96 01/16/20 16:30 112 20 124/56 (78) 99 01/16/20 16:00 Mechanical Ventilator Mechanical Ventilator 01/16/20 16:00 97.9 104 20 128/54 (78) 99 01/16/20 16:00 107 20 118/45 (69) 99 01/16/20 16:00 80 01/16/20 16:00 80 01/16/20 16:00 101 01/16/20 15:30 110 20 130/58 (82) 100 01/16/20 15:20 102 20 80 01/16/20 15:00 108 20 137/58 (84) 100 01/16/20 14:30 112 21 133/52 (79) 100 01/16/20 14:00 102 20 127/56 (79) 97 01/16/20 13:30 111 20 118/51 (73) 100 01/16/20 13:00 107 21 131/60 (83) 97 01/16/20 13:00 107 21 131/60 (83) 97 Height (Feet): 5 Height (Inches): 2.00 Weight (Pounds): 155 General Appearance: normal inspection, non-toxic, obese, Chronically Ill Head: atraumatic ENT: normal ENT inspection, hearing grossly normal, normal voice Neck: supple, no bony tend, limited range of motion Respiratory: normal inspection, no respiratory distress, no retraction, rales Cardiovascular #1: regular rate, rhythm, edema Gastrointestinal: normal inspection, normal bowel sounds, non tender, soft, no guarding, no hernia Genitourinary: no CVA tenderness Musculoskeletal: back normal Neurologic: oriented x3, other - Somnolent with gag reflex present, withdraws to pain Skin: palpation normal Microbiology Date/Time Source Procedure Growth Status 01/14/20 13:45 Sputum Gram Stain - Final Resulted 01/14/20 13:45 Sputum Culture - Preliminary Gram Negative Brandon Yeast Species Resulted Laboratory Tests Test 01/16/20 16:43 01/17/20 03:57 01/17/20 07:50 POC Whole Blood Glucose Pending White Blood Count 27.8 K/UL (4.8-10.8) *H Red Blood Count 2.95 M/UL (4.20-5.40) L Hemoglobin 8.0 G/DL (12.0-16.0) L Hematocrit 24.7 % (37.0-47.0) L Mean Corpuscular Volume 84 FL (80-99) Mean Corpuscular Hemoglobin 27.1 PG (27.0-31.0) Mean Corpuscular Hemoglobin Concent 32.4 G/DL (32.0-36.0) Red Cell Distribution Width 16.6 % (11.6-14.8) H Platelet Count 99 K/UL (150-450) L Mean Platelet Volume 6.6 FL (6.5-10.1) Neutrophils (%) (Auto) % (45.0-75.0) Lymphocytes (%) (Auto) % (20.0-45.0) Monocytes (%) (Auto) % (1.0-10.0) Eosinophils (%) (Auto) % (0.0-3.0) Basophils (%) (Auto) % (0.0-2.0) Differential Total Cells Counted 100 Neutrophils % (Manual) 92 % (45-75) H Lymphocytes % (Manual) 1 % (20-45) L Monocytes % (Manual) 1 % (1-10) Eosinophils % (Manual) 0 % (0-3) Basophils % (Manual) 0 % (0-2) Band Neutrophils 6 % (0-8) Platelet Estimate Decreased L Platelet Morphology Normal Hypochromasia 3+ Schistocytes Sodium Level 141 MMOL/L (136-145) Potassium Level 3.9 MMOL/L (3.5-5.1) Chloride Level 104 MMOL/L (98-107) Carbon Dioxide Level 25 MMOL/L (21-32) Anion Gap 12 mmol/L (5-15) Blood Urea Nitrogen 48 mg/dL (7-18) H Creatinine 2.8 MG/DL (0.55-1.30) H Estimat Glomerular Filtration Rate 16.0 mL/min (>60) Glucose Level 106 MG/DL (74-106) Calcium Level 8.8 MG/DL (8.5-10.1) Phosphorus Level 4.7 MG/DL (2.5-4.9) Magnesium Level 2.1 MG/DL (1.8-2.4) Total Bilirubin 0.7 MG/DL (0.2-1.0) Aspartate Amino Transf (AST/SGOT) 51 U/L (15-37) H Alanine Aminotransferase (ALT/SGPT) 36 U/L (12-78) Alkaline Phosphatase 101 U/L (46-116) C-Reactive Protein, Quantitative 35.6 mg/dL (0.00-0.90) H Pro-B-Type Natriuretic Peptide 79483 pg/mL (0-125) H Total Protein 5.8 G/DL (6.4-8.2) L Albumin 1.9 G/DL (3.4-5.0) L Globulin 3.9 g/dL Albumin/Globulin Ratio 0.5 (1.0-2.7) L Arterial Blood pH 7.292 (7.350-7.450) Arterial Blood Partial Pressure CO2 50.0 mmHg (35.0-45.0) H Arterial Blood Partial Pressure O2 76.1 mmHg (75.0-100.0) Arterial Blood HCO3 23.6 mmol/L (22.0-26.0) Arterial Blood Oxygen Saturation 93.6 % (95-100) L Arterial Blood Base Excess -2.9 (-2-2) L Chester Test Positive Current Medications Medications (Trade) Dose Ordered Sig/Brett Route PRN Reason Start Time Stop Time Status Last Admin Dose Admin Acetaminophen (Tylenol) 650 mg Q4H PRN ORAL FEVER 01/01/20 07:00 01/31/20 06:59 01/17/20 09:37 Acetaminophen (Tylenol) 650 mg Q4H PRN RECTAL Temp >100.5 01/03/20 09:30 02/02/20 09:29 01/03/20 12:18 Albuterol/ Ipratropium (Combivent Respimat) 1 puff Q4H PRN INH Shortness of Breath 01/05/20 20:00 02/04/20 19:59 Allopurinol (allopurinoL) 300 mg DAILY NG 01/07/20 10:45 02/06/20 10:44 01/17/20 08:42 Chlorhexidine Gluconate (Silvia-Hex 2%) 1 applic DAILY@1999 TOPIC 01/07/20 20:00 04/06/20 19:59 01/16/20 20:00 Dextrose (Dextrose 50%) 25 ml Q30M PRN IV Hypoglycemia 01/01/20 08:45 03/31/20 08:44 Dextrose (Dextrose 50%) 50 ml Q30M PRN IV Hypoglycemia 01/01/20 08:45 03/31/20 08:44 Diltiazem HCl (Cardizem) 15 mg Q12H PRN IVP For High Blood Pressure 01/03/20 07:00 02/02/20 06:59 Diltiazem HCl 125 mg/Sodium Chloride 125 ml @ 0 mls/hr Q24H IVPB 01/16/20 10:00 01/19/20 09:59 01/17/20 07:52 Insulin Aspart (NovoLOG) Q6HR SUBQ 01/09/20 00:00 03/31/20 11:29 01/15/20 17:57 Levothyroxine Sodium (Synthroid) 200 mcg DAILY@0630 ORAL 01/12/20 06:30 02/11/20 06:29 01/17/20 06:30 Linezolid 300 ml @ 300 mls/hr Q12H IVPB 01/16/20 18:00 01/23/20 17:59 01/17/20 05:40 Meropenem 500 mg/ Sodium Chloride 55 ml @ 110 mls/hr Q12H IVPB 01/16/20 17:00 01/21/20 16:59 01/17/20 05:01 Metoclopramide HCl (Reglan) 10 mg Q8H PRN IVP high residuals 01/17/20 10:30 02/16/20 10:29 01/17/20 10:32 Micafungin Sodium 100 mg/Sodium Chloride 110 ml @ 110 mls/hr Q24H IVPB 01/15/20 11:00 01/22/20 10:59 01/17/20 10:30 Midodrine (Pro-Amatine) 10 mg THREE TIMES A DAY NG 01/16/20 13:00 04/15/20 12:59 01/17/20 08:43 Norepinephrine Bitartrate 250 ml @ 0 mls/hr Q24H IV 01/16/20 10:39 01/19/20 10:38 Pantoprazole (Protonix) 40 mg Q12HR IV 01/05/20 21:00 02/04/20 08:59 01/17/20 08:42 Sevelamer Carbonate (Renvela) 800 mg THREE TIMES A DAY NG 01/14/20 13:00 04/13/20 12:59 01/17/20 08:45 Adrienne Cook M.D. Jan 17, 2020 12:52
--- NOTE | 2020-01-17 13:24 | NUR ---
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 99.8 HR 96 RR 20 B/P 126/57 AC 24 TV 600 FIO2 100% PEEP 8 WBC 39.6 BUN 68 CR 3.0 IS: ZYVOX IV MEROPENEM IV MICAFUNGIN IV ICU STATUS 01/16/2020 SI: RESP FAILURE ETT/VENT SUPPORT T. 98.9 HR 109 RR 21 B/P 123/46 AC 24 TV 600 FIO2 80% PEEP 8 WBC 26.1 BUN 83 CR 3.7 CXR=Minimal improvement in the degree of airspace opacity involving the left lower lung field. IS: ZYVOX IV MICAFUNGIN IV MEROPENEM IV CARDIZEM GTT ICU STATUS 01/17/2020 SI: RESP FAILURE ETT/VENT SUPPORT,LEUKOCYTOSIS T. 101.0 HR 88 RR 24 B/P 106/42 AC 24 TV 600 FIO2 100% PEEP 8 WBC 27.8 BUN 48 CR 2.8 IS: CARDIZEM GTT ZYVOX IV MEROPENEM IV MICAFUNGIN IV REGLAN IV ICU STATUS
--- NOTE | 2020-01-17 13:45 | NUR ---
INSURANCE CLINICALS/REVIEW FAXED TO [facility] [phone]
--- NOTE | 2020-01-17 14:13 | NUR ---
NURSE NOTES: Residual 40 ml. Feeding continued @ 20 ml/hr
--- NOTE | 2020-01-17 14:46 | Surgery Progress Note ---
Surgery Progress Note Subjective Procedure Performed left subclavian central venous catheter insertion Additional Comments ill appearing leukocytosis significant cxr / kub reviewed no n/v prognosis guarded Objective Last 24 Hour Vital Signs Date Time Temp Pulse Resp B/P (MAP) Pulse Ox O2 Delivery O2 Flow Rate FiO2 01/17/20 14:00 90 24 124/42 (69) 92 01/17/20 13:00 82 24 99/37 (57) 96 01/17/20 12:00 Mechanical Ventilator Mechanical Ventilator 01/17/20 12:00 80 01/17/20 12:00 101.0 88 24 106/42 (63) 98 01/17/20 11:00 91 24 109/42 (64) 96 01/17/20 10:30 85 24 100 01/17/20 10:07 101.0 01/17/20 10:00 93 20 106/48 (67) 96 01/17/20 10:00 97 122/53 01/17/20 09:00 97 20 117/54 (75) 96 01/17/20 08:00 80 01/17/20 08:00 Mechanical Ventilator Mechanical Ventilator 01/17/20 08:00 101.0 101 25 141/59 (86) 97 01/17/20 07:52 98 128/54 01/17/20 07:15 93 20 100 01/17/20 07:00 98 21 137/59 (85) 96 01/17/20 06:00 96 20 132/58 (82) 96 01/17/20 05:00 98 20 132/58 (82) 96 01/17/20 04:00 80 01/17/20 04:00 99.4 94 20 136/53 (80) 96 01/17/20 04:00 97 01/17/20 04:00 Mechanical Ventilator Mechanical Ventilator 01/17/20 03:30 93 20 100 01/17/20 03:00 99 20 133/59 (83) 96 01/17/20 03:00 99 20 133/59 (83) 96 01/17/20 02:34 99 135/48 01/17/20 02:00 97 20 112/58 (76) 94 01/17/20 01:00 100 22 131/49 (76) 90 01/17/20 00:00 80 01/17/20 00:00 Mechanical Ventilator Mechanical Ventilator 01/17/20 00:00 98.8 97 20 126/47 (73) 93 01/17/20 00:00 105 01/16/20 23:45 99 20 116/51 (72) 94 01/16/20 23:00 100 20 128/46 (73) 93 01/16/20 22:55 104 20 100 01/16/20 22:00 101 20 118/48 (71) 92 01/16/20 21:15 102 20 118/49 (72) 92 01/16/20 21:00 104 20 122/40 (67) 91 01/16/20 20:30 102 20 123/48 (73) 91 01/16/20 20:00 80 01/16/20 20:00 98.8 109 21 123/46 (71) 92 01/16/20 20:00 Mechanical Ventilator Mechanical Ventilator 01/16/20 20:00 106 01/16/20 19:30 107 19 140/48 (78) 95 01/16/20 19:30 106 20 100 01/16/20 19:00 103 20 137/58 (84) 95 01/16/20 18:49 99.5 01/16/20 18:30 107 19 128/47 (74) 95 01/16/20 18:00 100 18 135/53 (80) 95 01/16/20 17:30 108 17 156/50 (85) 95 01/16/20 17:00 110 20 132/55 (80) 96 01/16/20 16:30 112 20 124/56 (78) 99 01/16/20 16:00 Mechanical Ventilator Mechanical Ventilator 01/16/20 16:00 97.9 104 20 128/54 (78) 99 01/16/20 16:00 107 20 118/45 (69) 99 01/16/20 16:00 80 01/16/20 16:00 80 01/16/20 16:00 101 01/16/20 15:30 110 20 130/58 (82) 100 01/16/20 15:20 102 20 80 01/16/20 15:00 108 20 137/58 (84) 100 I&O Intake and Output 01/16/20 01/17/20 18:59 06:59 Intake Total 328.75 ml 985 ml Output Total 2060 ml 30 ml Balance -1731.25 ml 955 ml Free Water 50 ml 25 ml IV Total 198.75 ml 745 ml Tube Feeding 80 ml 215 ml Output Urine Total 60 ml 10 ml Stool Total 20 ml Hemodialysis UF 2000 ml # Bowel Movements 80 Dressing: other Wound: other Cardiovascular: RSR Respiratory: decreased breath sounds Abdomen: soft, non-tender, present bowel sounds Extremities: no tenderness, no cyanosis Laboratory Tests Test 01/16/20 16:43 01/17/20 03:57 01/17/20 07:50 POC Whole Blood Glucose Pending White Blood Count 27.8 K/UL (4.8-10.8) *H Red Blood Count 2.95 M/UL (4.20-5.40) L Hemoglobin 8.0 G/DL (12.0-16.0) L Hematocrit 24.7 % (37.0-47.0) L Mean Corpuscular Volume 84 FL (80-99) Mean Corpuscular Hemoglobin 27.1 PG (27.0-31.0) Mean Corpuscular Hemoglobin Concent 32.4 G/DL (32.0-36.0) Red Cell Distribution Width 16.6 % (11.6-14.8) H Platelet Count 99 K/UL (150-450) L Mean Platelet Volume 6.6 FL (6.5-10.1) Neutrophils (%) (Auto) % (45.0-75.0) Lymphocytes (%) (Auto) % (20.0-45.0) Monocytes (%) (Auto) % (1.0-10.0) Eosinophils (%) (Auto) % (0.0-3.0) Basophils (%) (Auto) % (0.0-2.0) Differential Total Cells Counted 100 Neutrophils % (Manual) 92 % (45-75) H Lymphocytes % (Manual) 1 % (20-45) L Monocytes % (Manual) 1 % (1-10) Eosinophils % (Manual) 0 % (0-3) Basophils % (Manual) 0 % (0-2) Band Neutrophils 6 % (0-8) Platelet Estimate Decreased L Platelet Morphology Normal Hypochromasia 3+ Schistocytes Sodium Level 141 MMOL/L (136-145) Potassium Level 3.9 MMOL/L (3.5-5.1) Chloride Level 104 MMOL/L (98-107) Carbon Dioxide Level 25 MMOL/L (21-32) Anion Gap 12 mmol/L (5-15) Blood Urea Nitrogen 48 mg/dL (7-18) H Creatinine 2.8 MG/DL (0.55-1.30) H Estimat Glomerular Filtration Rate 16.0 mL/min (>60) Glucose Level 106 MG/DL (74-106) Calcium Level 8.8 MG/DL (8.5-10.1) Phosphorus Level 4.7 MG/DL (2.5-4.9) Magnesium Level 2.1 MG/DL (1.8-2.4) Total Bilirubin 0.7 MG/DL (0.2-1.0) Aspartate Amino Transf (AST/SGOT) 51 U/L (15-37) H Alanine Aminotransferase (ALT/SGPT) 36 U/L (12-78) Alkaline Phosphatase 101 U/L (46-116) C-Reactive Protein, Quantitative 35.6 mg/dL (0.00-0.90) H Pro-B-Type Natriuretic Peptide 26906 pg/mL (0-125) H Total Protein 5.8 G/DL (6.4-8.2) L Albumin 1.9 G/DL (3.4-5.0) L Globulin 3.9 g/dL Albumin/Globulin Ratio 0.5 (1.0-2.7) L Arterial Blood pH 7.292 (7.350-7.450) Arterial Blood Partial Pressure CO2 50.0 mmHg (35.0-45.0) H Arterial Blood Partial Pressure O2 76.1 mmHg (75.0-100.0) Arterial Blood HCO3 23.6 mmol/L (22.0-26.0) Arterial Blood Oxygen Saturation 93.6 % (95-100) L Arterial Blood Base Excess -2.9 (-2-2) L Chester Test Positive Plan Problems: (1) Acute on chronic systolic (congestive) heart failure (2) CO2 retention (3) BORIS (acute kidney injury) (4) Shock liver Assessment & Plan: Hypotensive septic acute elevation in LFTs AST ALT thousands alk phos elevated. Likely shock from hypotension and acute episode. Labs trending down. IV fluid hydration. No acute intervention. Hold on imaging. Line reviewed. No bleeding noted. All 3 ports functional. Chest x-ray reviewed. Drop in hemoglobin unlikely related to line. Will monitor. Trend labs. Transfuse PRN. And are improvement in position of previously malpositioned endotracheal tube, tip now projecting 1-2 cm above the garrett. Interim placement of an orogastric tube, tip of which projects beyond the edge of the image, presumably well within the stomach. Interim placement of a left subclavian central venous catheter, tip of which projects at the level of the innominate venous confluence. No pneumothorax. Bilateral infiltrates are again demonstrated, unchanged. Impression: Improved and now satisfactory position of endotracheal tube Interim left subclavian central venous catheter placement, no radiographically evident complication Interim orogastric intubation, apparently satisfactory Unchanged bilateral infiltrates (5) Atrial fibrillation (6) Diabetes mellitus (7) CHF (congestive heart failure) (8) Hypothyroidism Assessment & Plan: DAILY ESTIMATED NEEDS: Needs based on Critical care 54kg abw 22-30 kcals/kg 3269-5523 total kcals 1.25-2 g protein/kg 68-108 g total protein 20-25 mL/kg 9716-7473 total fluid mLs NUTRITION DIAGNOSIS: Swallowing difficulty r/t resp status as evidenced by pt adm w/ covid 19 ++, on bipap, now s/p code blue, intubated, on OGT feeds. CURRENT TF:VITAL AF 1.2 @ 55ml/hr x22 hrs ENTERAL NUTRITION RECOMMENDATIONS: VITAL AF 1.2 @ 55ml/hr x 22 hrs to provide 1210, 1452kcal, 91g prot, 981ml free water * Maintain current TF * Hold 1 hr before and after Synthroid * HOB over 30 degrees/ water flush per MD If renal fxn cont to worsen (creat 3.2 w/ phos 6.1 on 01/12) -> rec TF change to Nepro @ goal rate of 35ml/hr x 22 hrs to provide 770ml, 1386kcal, 62g prot (1.15g/kg), 560ml free water ADDITIONAL RECOMMENDATIONS: 1) Maintain calibrated bed scale wts daily 2) Monitor renal fxn and lytes, need for renal TF (creat worsening 3.2, phos 6.1) 3) Skin integrity: TF @ goal provides 100% RDI Odell BID 4) Monitor BGs, need for additional hypoglycemics (9) Chronic respiratory failure Assessment & Plan: Intubated intensive care unit weaning vent. ET tube in place. Chest x-ray reviewed. (10) History of hypertension (11) 2019 novel coronavirus detected Assessment & Plan: COVID positive as per ID and pulmonology appreciate input a nd care. Continue vent support wean as tolerated. (12) Acute respiratory failure due to COVID-19 Satinder Olivera Jan 17, 2020 14:46
--- NOTE | 2020-01-17 15:46 | NUR ---
NURSE NOTES: blood cultures drawn. Lab to come pick them up
--- NOTE | 2020-01-17 15:56 | NUR ---
NURSE NOTES: central line dressing changed. Addendum: 01/17/20 at 1556 by Arline Camacho RN INCORRECT PATIENT
--- NOTE | 2020-01-17 15:59 | Diagnostic Imaging Report ---
Indication: Shortness of breath Technique: One view of the chest Comparison: 01/16/2020 Findings: Stable satisfactory position of endotracheal tube, orogastric tube, right jugular temporary dialysis catheter and left subclavian central venous catheter. Bilateral infiltrates appear slightly worse, although possibly exaggerated by less optimal inspiration. Impression: Stable or slightly worse bilateral infiltrates, over one day
--- NOTE | 2020-01-17 17:00 | NUR ---
NURSE NOTES: Pt cleaned, linen changed. Rectal tube still in place and draining to gravity. Pt suctioned and oral care done.
[2020-01-17] MEDS ORDERED: DILTIAZEM 125 MG/125 ML IVPB SCH ×2 (18:00→20:01)
--- NOTE | 2020-01-17 18:56 | Internal Med Progress Note ---
Subjective Date of Service: Jan 17, 2020 Physician Name GinHarris Attending Physician Fernando Peguero MD Current Medications Medications (Trade) Dose Ordered Sig/Brett Route PRN Reason Start Time Stop Time Status Last Admin Dose Admin Acetaminophen (Tylenol) 650 mg Q4H PRN ORAL FEVER 01/01/20 07:00 01/31/20 06:59 01/17/20 09:37 Acetaminophen (Tylenol) 650 mg Q4H PRN RECTAL Temp >100.5 01/03/20 09:30 02/02/20 09:29 01/03/20 12:18 Albuterol/ Ipratropium (Combivent Respimat) 1 puff Q4H PRN INH Shortness of Breath 01/05/20 20:00 02/04/20 19:59 Allopurinol (allopurinoL) 300 mg DAILY NG 01/07/20 10:45 02/06/20 10:44 01/17/20 08:42 Chlorhexidine Gluconate (Silvia-Hex 2%) 1 applic DAILY@1999 TOPIC 01/07/20 20:00 04/06/20 19:59 01/16/20 20:00 Dextrose (Dextrose 50%) 25 ml Q30M PRN IV Hypoglycemia 01/01/20 08:45 03/31/20 08:44 Dextrose (Dextrose 50%) 50 ml Q30M PRN IV Hypoglycemia 01/01/20 08:45 03/31/20 08:44 Diltiazem HCl 125 ml @ 0 mls/hr Q24H IVPB 01/17/20 18:00 01/18/20 17:59 01/17/20 17:35 Diltiazem HCl (Cardizem) 15 mg Q12H PRN IVP For High Blood Pressure 01/03/20 07:00 02/02/20 06:59 Insulin Aspart (NovoLOG) Q6HR SUBQ 01/09/20 00:00 03/31/20 11:29 01/15/20 17:57 Levothyroxine Sodium (Synthroid) 200 mcg DAILY@0630 ORAL 01/12/20 06:30 02/11/20 06:29 01/17/20 06:30 Linezolid 300 ml @ 300 mls/hr Q12H IVPB 01/16/20 18:00 01/23/20 17:59 01/17/20 17:05 Meropenem 500 mg/ Sodium Chloride 55 ml @ 110 mls/hr Q12H IVPB 01/16/20 17:00 01/21/20 16:59 01/17/20 17:05 Metoclopramide HCl (Reglan) 10 mg Q8H PRN IVP high residuals 01/17/20 10:30 02/16/20 10:29 01/17/20 10:32 Micafungin Sodium 100 mg/Sodium Chloride 110 ml @ 110 mls/hr Q24H IVPB 01/15/20 11:00 01/22/20 10:59 01/17/20 10:30 Midodrine (Pro-Amatine) 10 mg THREE TIMES A DAY NG 01/16/20 13:00 04/15/20 12:59 01/17/20 17:05 Norepinephrine Bitartrate 250 ml @ 0 mls/hr Q24H IV 01/16/20 10:39 01/19/20 10:38 Pantoprazole (Protonix) 40 mg Q12HR IV 01/05/20 21:00 02/04/20 08:59 01/17/20 08:42 Sevelamer Carbonate (Renvela) 800 mg THREE TIMES A DAY NG 01/14/20 13:00 04/13/20 12:59 01/17/20 17:05 Allergies: Coded Allergies: DOXYCYCLINE (Verified Allergy, Unknown, 04/04/19) RIFAMPIN (Verified Allergy, Unknown, 04/04/19) ROS Limited/Unobtainable: Yes Subjective 84 YO F admitted with hypoxia. Now COVID 19 pneumonia. Cover for Int med-DR Peguero. ICU. Intubated and sedated Objective Last Vital Signs Date Time Temp Pulse Resp B/P (MAP) Pulse Ox O2 Delivery O2 Flow Rate FiO2 01/17/20 18:00 81 23 116/72 (87) 97 01/17/20 16:00 Mechanical Ventilator Mechanical Ventilator 01/17/20 16:00 99.8 01/17/20 16:00 100 Laboratory Tests Test 01/17/20 03:57 01/17/20 07:50 White Blood Count 27.8 K/UL (4.8-10.8) *H Red Blood Count 2.95 M/UL (4.20-5.40) L Hemoglobin 8.0 G/DL (12.0-16.0) L Hematocrit 24.7 % (37.0-47.0) L Mean Corpuscular Volume 84 FL (80-99) Mean Corpuscular Hemoglobin 27.1 PG (27.0-31.0) Mean Corpuscular Hemoglobin Concent 32.4 G/DL (32.0-36.0) Red Cell Distribution Width 16.6 % (11.6-14.8) H Platelet Count 99 K/UL (150-450) L Mean Platelet Volume 6.6 FL (6.5-10.1) Neutrophils (%) (Auto) % (45.0-75.0) Lymphocytes (%) (Auto) % (20.0-45.0) Monocytes (%) (Auto) % (1.0-10.0) Eosinophils (%) (Auto) % (0.0-3.0) Basophils (%) (Auto) % (0.0-2.0) Differential Total Cells Counted 100 Neutrophils % (Manual) 92 % (45-75) H Lymphocytes % (Manual) 1 % (20-45) L Monocytes % (Manual) 1 % (1-10) Eosinophils % (Manual) 0 % (0-3) Basophils % (Manual) 0 % (0-2) Band Neutrophils 6 % (0-8) Platelet Estimate Decreased L Platelet Morphology Normal Hypochromasia 3+ Schistocytes Sodium Level 141 MMOL/L (136-145) Potassium Level 3.9 MMOL/L (3.5-5.1) Chloride Level 104 MMOL/L (98-107) Carbon Dioxide Level 25 MMOL/L (21-32) Anion Gap 12 mmol/L (5-15) Blood Urea Nitrogen 48 mg/dL (7-18) H Creatinine 2.8 MG/DL (0.55-1.30) H Estimat Glomerular Filtration Rate 16.0 mL/min (>60) Glucose Level 106 MG/DL (74-106) Calcium Level 8.8 MG/DL (8.5-10.1) Phosphorus Level 4.7 MG/DL (2.5-4.9) Magnesium Level 2.1 MG/DL (1.8-2.4) Total Bilirubin 0.7 MG/DL (0.2-1.0) Aspartate Amino Transf (AST/SGOT) 51 U/L (15-37) H Alanine Aminotransferase (ALT/SGPT) 36 U/L (12-78) Alkaline Phosphatase 101 U/L (46-116) C-Reactive Protein, Quantitative 35.6 mg/dL (0.00-0.90) H Pro-B-Type Natriuretic Peptide 69423 pg/mL (0-125) H Total Protein 5.8 G/DL (6.4-8.2) L Albumin 1.9 G/DL (3.4-5.0) L Globulin 3.9 g/dL Albumin/Globulin Ratio 0.5 (1.0-2.7) L Arterial Blood pH 7.292 (7.350-7.450) Arterial Blood Partial Pressure CO2 50.0 mmHg (35.0-45.0) H Arterial Blood Partial Pressure O2 76.1 mmHg (75.0-100.0) Arterial Blood HCO3 23.6 mmol/L (22.0-26.0) Arterial Blood Oxygen Saturation 93.6 % (95-100) L Arterial Blood Base Excess -2.9 (-2-2) L Chester Test Positive Intake and Output 01/16/20 01/17/20 19:00 07:00 Intake Total 366.25 ml 945 ml Output Total 2030 ml 30 ml Balance -1663.75 ml 915 ml Free Water 50 ml 25 ml IV Total 216.25 ml 725 ml Tube Feeding 100 ml 195 ml Output Urine Total 30 ml 10 ml Stool Total 20 ml Hemodialysis UF 2000 ml Objective PHYSICAL EXAMINATION: GENERAL: The patient is a well-developed and well-nourished female, in moderate respiratory distress. HEENT: Eyes, pupils equal and responsive to light and accommodation. Extraocular movements are intact. NECK: Supple without lymphadenopathy. CHEST: Mech vent; Decreased breath sounds at bilateral bases with crackles. Otherwise, without wheezes. CARDIOVASCULAR: Regular rhythm and rate. S1, S2 normal without murmurs, rubs, or gallops. ABDOMEN: Soft, nontender, and nondistended. Positive bowel sounds. No evidence of hepatosplenomegaly. Currently, no rebound or guarding noted. EXTREMITIES: Negative for clubbing, cyanosis, or edema. RECTAL/GENITAL: Not performed. NEUROLOGIC: Cranial nerves II through XII are grossly intact without focal deficits. Assessment/Plan Assessment/Plan ASSESSMENT: This is an 84-year-old female with: 1. COVID-19 positive. 2. Bilateral pneumonia. 3. Hypertension. 4. Atrial fibrillation. 5. Chronic obstructive pulmonary disease. 6. Coronary artery disease. 7. Congestive heart failure. 8. Diabetes type 2. 9. Hypothyroidism. 10. Hypercholesterolemia. 11. Rheumatoid arthritis. 12. Gastroesophageal reflux disease. 13. Respiratory failure 14. S/P cardiac arrest 01/05/20 TREATMENT: 1. COVID-19 positive/pneumonia. Continue decadron; S/P remdesivir 1. Pulmonary/critical care=Dr. Ann-Marie Graves. 2. Hypertension. Continue hydralazine as above. 3. Atrial fibrillation. Continue digoxin as above. 4. Chronic obstructive pulmonary disease. As above, a Pulmonary consultation has been obtained with Dr. Ann-Marie Graves. The patient is currently on albuterol nebulized q.4h. p..r.n. 5. Coronary disease/congestive heart failure. An echocardiogram is pending. A Cardiology consultation has been obtained with Dr. Gaming. 6. Diabetes type 2. NovoLog sliding scale has been instituted. 7. Hypothyroidism. Continue Synthroid as above. 8. Hypercholesterolemia. Continue atorvastatin as above. 9. Rheumatoid arthritis. 10. Gastroesophageal reflux disease. Continue Protonix as above. 11. Continue mech vent per pulmonary 12. ABX=meropenem, linezolid and micafungin 13. CODE STATUS: Full code 14. DVT prophylaxis: Heparin subcu. Harris Greenfield MD Jan 17, 2020 18:56
--- NOTE | 2020-01-17 19:09 | NUR ---
NURSE HAND-OFF REPORT: Latest Vital Signs: Temperature 99.8 , Pulse 81 , B/P 116 /72 , Respiratory Rate 23 , O2 SAT 97 , Mechanical Ventilator, O2 Flow Rate 10.0 . Vital Sign Comment: Pt on cardizem drip @ 7.5 mg/hr EKG Rhythm: Atrial Fibrillation Rhythm change?: N Notified?: Eliezer Gaming MD Response: No New Orders Received Latest Shaw Fall Score: 50 Fall Risk: High Risk Safety Measures: Call light Within Reach, Bed Alarm Zone 3, Side Rails Side Rails x3, Bed position Low and Locked. Fall Precautions: Yellow Socks Door Sign Patient Fall Education Report given to ALEX Hampton.
--- NOTE | 2020-01-17 20:00 | NUR ---
VIRY NOTES: received report form jessika gonzalez pt orally intubate with o2 sat 99%
[2020-01-17] MEDS: Dyna-Hex 2% Top Sol 2oz TOPIC SCH (20:23)
--- NOTE | 2020-01-17 22:00 | NUR ---
NURSE NOTES: Pt still on Afib controlled rate. Now on Cardizem drip at 3mg/hr. Bp stable.
[2020-01-18] VITALS (42 sets, daily range): BP systolic 101–146; BP diastolic 38–61
--- NOTE | 2020-01-18 | NUR ---
NURSE NOTES: Fdg on hold resduals were high. oral care done.
--- NOTE | 2020-01-18 02:00 | NUR ---
NURSE NOTES: REctal tube came out accidentally. Remained out , stool minimal at this time. cleaned up pt.
--- NOTE | 2020-01-18 04:00 | NUR ---
NURSE NOTES: Neuro unchanged. VSS
[2020-01-18] MEDS: Meropenem 500mg/NS 55ml IVPB SCH ×4 (05:00→17:12)
[2020-01-18] MEDS: NovoLOG Insulin Flexpen SUBQ SCH ×4 (06:00→17:46)
--- NOTE | 2020-01-18 06:00 | NUR ---
NURSE NOTES: Suctioned lg amt of beige secretions. Oral care done.
[2020-01-18] MEDS: Linezolid 600mg/300ml (Pre-Mix) IVPB SCH (06:07)
[2020-01-18 06:51] LABS: HEMATOCRIT 21.7 % (37.0-47.0); MEAN CORPUSCULAR VOLUME 83 FL (80-99); PLATELET COUNT 64 K/UL (150-450); RED BLOOD COUNT 2.61 M/UL (4.20-5.40); RED CELL DISTRIBUTION WIDTH 16.1 % (11.6-14.8); WHITE BLOOD COUNT 21.3 K/UL (4.8-10.8)
[2020-01-18 07:02] LABS: ALANINE AMINOTRANSFERASE 28 U/L (12-78); ALBUMIN 1.6 G/DL (3.4-5.0); ALBUMIN/GLOBULIN RATIO 0.4 (1.0-2.7); ALKALINE PHOSPHATASE 89 U/L (46-116); ASPARTATE AMINO TRANSFERASE 44 U/L (15-37); BILIRUBIN,TOTAL 0.7 MG/DL (0.2-1.0); BLOOD UREA NITROGEN 61 mg/dL (7-18); CALCIUM 8.3 MG/DL (8.5-10.1); CARBON DIOXIDE 24 MMOL/L (21-32); CREATININE 3.5 MG/DL (0.55-1.30); PHOSPHORUS 5.5 MG/DL (2.5-4.9)
[2020-01-18 07:27] LABS: HEMOGLOBIN 6.9 G/DL (12.0-16.0)
[2020-01-18 07:31] LABS: CHLORIDE 102 MMOL/L (98-107); POTASSIUM 3.8 MMOL/L (3.5-5.1); SODIUM 139 MMOL/L (136-145)
--- NOTE | 2020-01-18 07:54 | NUR ---
NURSE HAND-OFF REPORT: Latest Vital Signs: Temperature 99.6 , Pulse 85 , B/P 121 /48 , Respiratory Rate 24 , O2 SAT 98 , Mechanical Ventilator, O2 Flow Rate 10.0 . Vital Sign Comment: EKG Rhythm: Atrial Fibrillation Rhythm change?: N Notified?: Eliezer Gaming MD Response: No New Orders Received Latest Shaw Fall Score: 50 Fall Risk: High Risk Safety Measures: Call light Within Reach, Bed Alarm Zone 3, Side Rails Side Rails x3, Bed position Low and Locked. Fall Precautions: Yellow Socks Door Sign Patient Fall Education Report given to yamilet turcios rn.
--- NOTE | 2020-01-18 07:55 | NUR ---
NURSE NOTES: Report received from ALEX Villalba. Patient opens eyes to pain. Able to make eye contact for short time. Unable to follow commands. Non-verbal. A-fib on engine monitor with HR 80's. Orally intubated. AC 24, TV 600, FiO2 80%, P 8. O2 sat 95-98%. Left NGT in place. Feeding held from shift superintendent for high residual. Will recheck residual again. Kelsey in place. Oliguric. Right IJ Patrick with pigtail for HD noted. Left subclavian TLC patent and asymptomatic. Cardizem is running at 3mg/hr and TKO. Bed in lowest position. Side rails up x3. Will resume plan of care.
[2020-01-18] MEDS: Pantoprazole Inj IV SCH ×2 (08:24→20:38)
[2020-01-18] MEDS: Midodrine 10mg tab NG SCH ×3 (08:24→17:12)
[2020-01-18] MEDS: Renvela 800mg Pkt NG SCH ×3 (08:24→17:12)
--- NOTE | 2020-01-18 08:42 | Pulmonolgy Critical Care Note ---
Critical Care - Asmt/Plan Problems: (1) Acute respiratory failure due to COVID-19 (2) BORIS (acute kidney injury) (3) Acute on chronic systolic (congestive) heart failure (4) Atrial fibrillation (5) Diabetes mellitus (6) CHF (congestive heart failure) (7) Hypothyroidism (8) Chronic respiratory failure (9) History of hypertension Respiratory: monitor respiratory rate, adjust FIO2, CXR Cardiac: continue to monitor HR/BP Renal: F/U I&O, check electrolytes, other - HD by trackmobile operator Infectious Disease: check cultures, continue antibiotics, other - wbc decreasing Gastrointestinal: continue feedings/current rate Endocrine: monitor blood sugar Hematologic: monitor H/H, transfuse if hgb<8.5 Neurologic: PRN Ativan, PRN Morphine, keep patient comfortable Time Spent (Minutes): 40 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: director of intelligence, cardio, renal, ID Discussed with: nurses, consultants, renal case managercommercial lines account manager - Objective Last 24 Hour Vital Signs Date Time Temp Pulse Resp B/P (MAP) Pulse Ox O2 Delivery O2 Flow Rate FiO2 01/18/20 06:00 85 24 121/48 (72) 98 01/18/20 05:00 81 24 109/46 (67) 98 01/18/20 04:00 Mechanical Ventilator Mechanical Ventilator 01/18/20 04:00 85 01/18/20 04:00 99.6 83 24 136/46 (76) 97 01/18/20 04:00 100 01/18/20 03:00 84 24 123/50 (74) 99 01/18/20 02:55 81 24 100 01/18/20 02:00 79 24 104/46 (65) 99 01/18/20 01:00 99.6 78 24 111/42 (65) 98 01/18/20 00:00 Mechanical Ventilator Mechanical Ventilator 01/18/20 00:00 100 01/18/20 00:00 84 01/18/20 00:00 99.6 78 24 111/42 (65) 98 01/17/20 23:05 82 24 100 01/17/20 23:00 79 24 102/46 (64) 98 01/17/20 22:00 81 24 123/48 (73) 98 01/17/20 21:00 78 24 110/50 (70) 97 01/17/20 20:00 Mechanical Ventilator Mechanical Ventilator 01/17/20 20:00 100 01/17/20 20:00 86 01/17/20 20:00 99.0 83 24 122/47 (72) 01/17/20 19:22 83 24 100 01/17/20 19:00 82 24 122/51 (74) 97 01/17/20 18:00 81 23 116/72 (87) 97 01/17/20 17:00 81 24 125/40 (68) 90 01/17/20 16:00 Mechanical Ventilator Mechanical Ventilator 01/17/20 16:00 99.8 85 24 109/44 (65) 90 01/17/20 16:00 84 01/17/20 16:00 100 01/17/20 15:10 78 24 100 01/17/20 15:00 100.0 85 24 128/45 (72) 91 01/17/20 14:00 90 24 124/42 (69) 92 01/17/20 13:00 82 24 99/37 (57) 96 01/17/20 12:00 85 01/17/20 12:00 Mechanical Ventilator Mechanical Ventilator 01/17/20 12:00 80 01/17/20 12:00 101.0 88 24 106/42 (63) 98 01/17/20 11:00 91 24 109/42 (64) 96 01/17/20 10:30 85 24 100 01/17/20 10:07 101.0 01/17/20 10:00 93 20 106/48 (67) 96 01/17/20 10:00 97 122/53 01/17/20 09:00 97 20 117/54 (75) 96 Status: sedated Condition: grave HEENT: atraumatic Neck: full ROM Lungs: clear Heart: HR/BP stable Abdomen: soft, active bowel sounds Accucheck: 90 Critical Care - Subjective ROS Limited/Unobtainable: Yes Condition: critical EKG Rhythm: Sinus Rhythm FI02: 100 Vent Support Breath Rate: 24 Vent Support Mode: AC Vent Tidal Volume: 600 Sputum Amount: Small PEEP: 8.0 PIP: 48 Tube Feeding Amount: 0 I&O: Intake and Output 01/17/20 01/18/20 19:00 07:00 Intake Total 601.0 ml 93 ml Output Total 30 ml 10 ml Balance 571.0 ml 83 ml IV Total 521.0 ml 93 ml Tube Feeding 80 ml 0 ml Output Urine Total 10 ml 10 ml Stool Total 20 ml CXR: extensive infiltrate, ET in good position ET-Tube: 7.0 ET Position: 25 Labs: Laboratory Tests Test 01/18/20 04:23 01/18/20 05:06 POC Whole Blood Glucose Pending White Blood Count 21.3 K/UL (4.8-10.8) H Red Blood Count 2.61 M/UL (4.20-5.40) L Hemoglobin 6.9 G/DL (12.0-16.0) *L Hematocrit 21.7 % (37.0-47.0) L Mean Corpuscular Volume 83 FL (80-99) Mean Corpuscular Hemoglobin 26.5 PG (27.0-31.0) L Mean Corpuscular Hemoglobin Concent 32.0 G/DL (32.0-36.0) Red Cell Distribution Width 16.1 % (11.6-14.8) H Platelet Count 64 K/UL (150-450) L Mean Platelet Volume 7.2 FL (6.5-10.1) Neutrophils (%) (Auto) % (45.0-75.0) Lymphocytes (%) (Auto) % (20.0-45.0) Monocytes (%) (Auto) % (1.0-10.0) Eosinophils (%) (Auto) % (0.0-3.0) Basophils (%) (Auto) % (0.0-2.0) Neutrophils % (Manual) Pending Lymphocytes % (Manual) Pending Platelet Estimate Pending Platelet Morphology Pending Sodium Level 139 MMOL/L (136-145) Potassium Level 3.8 MMOL/L (3.5-5.1) Chloride Level 102 MMOL/L (98-107) Carbon Dioxide Level 24 MMOL/L (21-32) Blood Urea Nitrogen 61 mg/dL (7-18) H Creatinine 3.5 MG/DL (0.55-1.30) H Estimat Glomerular Filtration Rate 12.4 mL/min (>60) Glucose Level 111 MG/DL (74-106) H Calcium Level 8.3 MG/DL (8.5-10.1) L Phosphorus Level 5.5 MG/DL (2.5-4.9) H Magnesium Level 2.2 MG/DL (1.8-2.4) Total Bilirubin 0.7 MG/DL (0.2-1.0) Aspartate Amino Transf (AST/SGOT) 44 U/L (15-37) H Alanine Aminotransferase (ALT/SGPT) 28 U/L (12-78) Alkaline Phosphatase 89 U/L (46-116) C-Reactive Protein, Quantitative 32.4 mg/dL (0.00-0.90) H Pro-B-Type Natriuretic Peptide 66665 pg/mL (0-125) H Total Protein 5.3 G/DL (6.4-8.2) L Albumin 1.6 G/DL (3.4-5.0) L Globulin 3.7 g/dL Albumin/Globulin Ratio 0.4 (1.0-2.7) L Ann-Marie Graves MD Jan 18, 2020 08:42
--- NOTE | 2020-01-18 08:45 | NUR ---
NURSE NOTES: Dr Graves here to see the patient. Updated him with patient's current condition including low Hgb and platelet level. Order for 2 unit pRBC was entered by Dr Graves. Will carry out his order.
--- NOTE | 2020-01-18 10:20 | NUR ---
NURSE NOTES: Turned and repositioned patient. Continuos small amount of bleeding noted from lips and mouth. Awaiting blood to get ready.
[2020-01-18] MEDS: Norepinephrine 4mg/NS Premix 250 ML IV SCH (10:39)
[2020-01-18] MEDS: Micafungin 100 MG in NS 110 ML IVPB SCH (11:13)
--- NOTE | 2020-01-18 11:34 | Infectious Diseases Prog Note ---
Assessment/Plan Assessment: Asystole arrest Severe Sepsis COVID19 pneumonia Acute hypoxic resp failure sp NRB> Bipap 100% Fio2> VDRF 100% >80% -01/15 CXR:Minimal improvement in the degree of airspace opacity involving the left lower lung field.No pneumothorax. -01/13 Sp cx GNR Ucx C. albicans -01/01 CXR: Vascular congestion/developing failure and bilateral patchy infiltrates, slightly worse since prior exam. Small bilateral pleural effusions.Prominent mediastinum likely due to tortuous/ectatic thoracic aorta. -12/31 CXR: Centrally predominant interstitial and airspace opacities, pulmonary edema most likely. Cardiomegaly. Fever; recurrent; improving Leukocytosis; improving Dm2 COPD HTN former smoker CAD CHF RA GERD hypothyroidism Afib [place] resident ([facility]) Plan: -f/u Repeat Cultures - Continue Meropenem #7 -dc Linezolid #11 - cont Micafungin #4 - 01/10 SP Zosyn #6 - 01/09/20 SP Remdesivir #5 - 01/07/20 Ceftriaxone #7 - 12/31 SP Cefepime x1, Flagyl x1 -f/u cx -Monitor CBC/CMP, temperatures -ETT/ICU care - f/u ucx and sp cx , Bcx D/w RN Thank you for consulting [facility]. Will continue to follow along with you. Subjective Allergies: Coded Allergies: DOXYCYCLINE (Verified Allergy, Unknown, 04/04/19) RIFAMPIN (Verified Allergy, Unknown, 04/04/19) Tm 101; afebrile >12hrs wbc improving cr increased Fio2 80% hgb droppped Objective Last 24 Hour Vital Signs Date Time Temp Pulse Resp B/P (MAP) Pulse Ox O2 Delivery O2 Flow Rate FiO2 01/18/20 09:00 83 24 115/38 (63) 96 01/18/20 08:45 86 24 126/51 (76) 96 01/18/20 08:30 82 24 106/44 (64) 98 01/18/20 08:15 82 24 111/48 (69) 98 01/18/20 08:00 80 01/18/20 08:00 81 24 107/45 (65) 98 01/18/20 08:00 Mechanical Ventilator Mechanical Ventilator 01/18/20 07:45 82 24 119/45 (69) 98 01/18/20 07:30 83 24 119/42 (67) 98 01/18/20 07:21 78 24 90 01/18/20 07:15 85 24 105/42 (63) 98 01/18/20 07:00 99.9 86 24 127/53 (77) 98 01/18/20 06:00 85 24 121/48 (72) 98 01/18/20 05:00 81 24 109/46 (67) 98 01/18/20 04:00 Mechanical Ventilator Mechanical Ventilator 01/18/20 04:00 85 01/18/20 04:00 99.6 83 24 136/46 (76) 97 01/18/20 04:00 100 01/18/20 03:00 84 24 123/50 (74) 99 01/18/20 02:55 81 24 100 01/18/20 02:00 79 24 104/46 (65) 99 01/18/20 01:00 99.6 78 24 111/42 (65) 98 01/18/20 00:00 Mechanical Ventilator Mechanical Ventilator 01/18/20 00:00 100 01/18/20 00:00 84 01/18/20 00:00 99.6 78 24 111/42 (65) 98 01/17/20 23:05 82 24 100 01/17/20 23:00 79 24 102/46 (64) 98 01/17/20 22:00 81 24 123/48 (73) 98 01/17/20 21:00 78 24 110/50 (70) 97 01/17/20 20:00 Mechanical Ventilator Mechanical Ventilator 01/17/20 20:00 100 01/17/20 20:00 86 01/17/20 20:00 99.0 83 24 122/47 (72) 01/17/20 19:22 83 24 100 01/17/20 19:00 82 24 122/51 (74) 97 01/17/20 18:00 81 23 116/72 (87) 97 01/17/20 17:00 81 24 125/40 (68) 90 01/17/20 16:00 Mechanical Ventilator Mechanical Ventilator 01/17/20 16:00 99.8 85 24 109/44 (65) 90 01/17/20 16:00 84 01/17/20 16:00 100 01/17/20 15:10 78 24 100 01/17/20 15:00 100.0 85 24 128/45 (72) 91 01/17/20 14:00 90 24 124/42 (69) 92 01/17/20 13:00 82 24 99/37 (57) 96 01/17/20 12:00 85 01/17/20 12:00 Mechanical Ventilator Mechanical Ventilator 01/17/20 12:00 80 01/17/20 12:00 101.0 88 24 106/42 (63) 98 Height (Feet): 5 Height (Inches): 2.00 Weight (Pounds): 155 General Appearance: normal inspection, non-toxic, obese, Chronically Ill Head: atraumatic ENT: normal ENT inspection, hearing grossly normal, normal voice Neck: supple, no bony tend, limited range of motion Respiratory: normal inspection, no respiratory distress, no retraction, rales Cardiovascular #1: regular rate, rhythm, edema Gastrointestinal: normal inspection, normal bowel sounds, non tender, soft, no guarding, no hernia Genitourinary: no CVA tenderness Musculoskeletal: back normal Neurologic: oriented x3, other - Somnolent with gag reflex present, withdraws to pain Skin: palpation normal Laboratory Tests Test 01/18/20 04:23 01/18/20 05:06 POC Whole Blood Glucose Pending White Blood Count 21.3 K/UL (4.8-10.8) H Red Blood Count 2.61 M/UL (4.20-5.40) L Hemoglobin 6.9 G/DL (12.0-16.0) *L Hematocrit 21.7 % (37.0-47.0) L Mean Corpuscular Volume 83 FL (80-99) Mean Corpuscular Hemoglobin 26.5 PG (27.0-31.0) L Mean Corpuscular Hemoglobin Concent 32.0 G/DL (32.0-36.0) Red Cell Distribution Width 16.1 % (11.6-14.8) H Platelet Count 64 K/UL (150-450) L Mean Platelet Volume 7.2 FL (6.5-10.1) Neutrophils (%) (Auto) % (45.0-75.0) Lymphocytes (%) (Auto) % (20.0-45.0) Monocytes (%) (Auto) % (1.0-10.0) Eosinophils (%) (Auto) % (0.0-3.0) Basophils (%) (Auto) % (0.0-2.0) Differential Total Cells Counted 100 Neutrophils % (Manual) 94 % (45-75) H Lymphocytes % (Manual) 4 % (20-45) L Monocytes % (Manual) 1 % (1-10) Eosinophils % (Manual) 0 % (0-3) Basophils % (Manual) 1 % (0-2) Band Neutrophils 0 % (0-8) Platelet Estimate Decreased L Platelet Morphology Normal Hypochromasia 4+ Anisocytosis 1+ Spherocytes 2+ Sodium Level 139 MMOL/L (136-145) Potassium Level 3.8 MMOL/L (3.5-5.1) Chloride Level 102 MMOL/L (98-107) Carbon Dioxide Level 24 MMOL/L (21-32) Blood Urea Nitrogen 61 mg/dL (7-18) H Creatinine 3.5 MG/DL (0.55-1.30) H Estimat Glomerular Filtration Rate 12.4 mL/min (>60) Glucose Level 111 MG/DL (74-106) H Calcium Level 8.3 MG/DL (8.5-10.1) L Phosphorus Level 5.5 MG/DL (2.5-4.9) H Magnesium Level 2.2 MG/DL (1.8-2.4) Total Bilirubin 0.7 MG/DL (0.2-1.0) Aspartate Amino Transf (AST/SGOT) 44 U/L (15-37) H Alanine Aminotransferase (ALT/SGPT) 28 U/L (12-78) Alkaline Phosphatase 89 U/L (46-116) C-Reactive Protein, Quantitative 32.4 mg/dL (0.00-0.90) H Pro-B-Type Natriuretic Peptide 40080 pg/mL (0-125) H Total Protein 5.3 G/DL (6.4-8.2) L Albumin 1.6 G/DL (3.4-5.0) L Globulin 3.7 g/dL Albumin/Globulin Ratio 0.4 (1.0-2.7) L Current Medications Medications (Trade) Dose Ordered Sig/Brett Route PRN Reason Start Time Stop Time Status Last Admin Dose Admin Acetaminophen (Tylenol) 650 mg Q4H PRN ORAL FEVER 01/01/20 07:00 01/31/20 06:59 01/17/20 09:37 Acetaminophen (Tylenol) 650 mg Q4H PRN RECTAL Temp >100.5 01/03/20 09:30 02/02/20 09:29 01/03/20 12:18 Albuterol/ Ipratropium (Combivent Respimat) 1 puff Q4H PRN INH Shortness of Breath 01/05/20 20:00 02/04/20 19:59 Allopurinol (allopurinoL) 300 mg DAILY NG 01/07/20 10:45 02/06/20 10:44 01/18/20 08:24 Chlorhexidine Gluconate (Silvia-Hex 2%) 1 applic DAILY@1999 TOPIC 01/07/20 20:00 04/06/20 19:59 01/17/20 20:23 Dextrose (Dextrose 50%) 25 ml Q30M PRN IV Hypoglycemia 01/01/20 08:45 03/31/20 08:44 Dextrose (Dextrose 50%) 50 ml Q30M PRN IV Hypoglycemia 01/01/20 08:45 03/31/20 08:44 Diltiazem HCl 125 ml @ 0 mls/hr Q24H IVPB 01/17/20 18:00 01/18/20 17:59 01/17/20 17:35 Diltiazem HCl (Cardizem) 15 mg Q12H PRN IVP For High Blood Pressure 01/03/20 07:00 02/02/20 06:59 Insulin Aspart (NovoLOG) Q6HR SUBQ 01/09/20 00:00 03/31/20 11:29 01/15/20 17:57 Levothyroxine Sodium (Synthroid) 200 mcg DAILY@0630 ORAL 01/12/20 06:30 02/11/20 06:29 01/18/20 06:08 Linezolid 300 ml @ 300 mls/hr Q12H IVPB 01/16/20 18:00 01/23/20 17:59 01/18/20 06:07 Meropenem 500 mg/ Sodium Chloride 55 ml @ 110 mls/hr Q12H IVPB 01/16/20 17:00 01/21/20 16:59 01/18/20 05:00 Metoclopramide HCl (Reglan) 10 mg Q8H PRN IVP high residuals 01/17/20 10:30 02/16/20 10:29 01/17/20 10:32 Micafungin Sodium 100 mg/Sodium Chloride 110 ml @ 110 mls/hr Q24H IVPB 01/15/20 11:00 01/22/20 10:59 01/18/20 11:13 Midodrine (Pro-Amatine) 10 mg THREE TIMES A DAY NG 01/16/20 13:00 04/15/20 12:59 01/18/20 08:24 Norepinephrine Bitartrate 250 ml @ 0 mls/hr Q24H IV 01/16/20 10:39 01/19/20 10:38 Pantoprazole (Protonix) 40 mg Q12HR IV 01/05/20 21:00 02/04/20 08:59 01/18/20 08:24 Sevelamer Carbonate (Renvela) 800 mg THREE TIMES A DAY NG 01/14/20 13:00 04/13/20 12:59 01/18/20 08:24 Adrienne Cook M.D. Jan 18, 2020 11:34
--- NOTE | 2020-01-18 12:55 | NUR ---
NURSE NOTES: Started 1st unit of pRBC. Cosigned with Martha Pandya RN. Pre-transfusion temp 99.2, HR 87, BP 127/53. Will continue to monitor.
--- NOTE | 2020-01-18 13:02 | Nephrology Progress Note ---
Assessment/Plan Problem List: (1) BORIS (acute kidney injury) (2) 2019 novel coronavirus detected (3) Hypothyroidism (4) Diabetes mellitus (5) Atrial fibrillation (6) Shock liver Assessment 85-year-old female admitted 5 days ago, at the time serum creatinine was 0.9 and today the serum creatinine is 1.4, most likely BORIS Hypernatremia secondary to free water deficit Prerenal azotemia COVID-19 virus detected Acute on chronic systolic congestive heart failure Atrial fibrillation Diabetes mellitus Hypothyroidism Hypertension Acute on chronic respiratory failure Plan January 17: Hemoglobin is low today. Due for 2 units of packed RBCs transfusion. Serum creatinine rising. Hemodialysis tomorrow. Continue per consultants. Remains full code and on mechanical ventilation. January 16: Dialyzed yesterday. Ultrafiltration done 2 L. Labs reviewed. Remains intubated on ventilator. Full code. Continue to monitor renal parameters and arrange for dialysis as needed. January 15: Due for dialysis today. Patient hypotensive. Will start pressors and midodrine if needed. Will aim to dialyze and remove excess fluid as possible. Patient full code. Prognosis poor. January 14: Dialyzed yesterday. 2000 mL fluid ultrafiltrated during dialysis. Will dialyze again tomorrow. Continue per consultants. Labs reviewed. Medication list reviewed. Continue as is. January 13: Creatinine rising. Other labs and medication reviewed. Patient intubated. Patient full code. Consent for dialysis catheter is obtained. Will order dialysis after insertion of the non-tunneled dialysis catheter. Discussed with ALEX Hernandez. January 12: Serum creatinine rising. Patient was transfused. Remains full code. Remains intubated on ventilator. Will get consent for placement of non- tunneled dialysis catheter. Further worsening renal parameters may lead to the need for dialysis treatment. Per orders. January 11: Labs reviewed. Serum creatinine higher. Hemoglobin lower. Osborn sfusion 2 units packed RBCs today. Continue to monitor renal parameters. Avoid nephrotoxic's. January 10: Labs reviewed. Serum creatinine 2.5. Liver enzymes are lowering. Remains full code. Remains intubated. Electrolyte abnormalities addressed. Continue per consultants. January 09: Lab reviewed. Serum creatinine lower at 2.6. Liver enzymes are lowering. Patient remains full code and remains intubated. Continue current management. Continue to follow renal parameters. Continue per consultants. Start Cardizem 30 mg every 8 hours via NG tube for elevated blood pressure January 08: Lab reviewed. Serum creatinine 2.8. LFTs improving. Remains intubated. Remains full code. Continue per consultants. Continue to monitor renal parameters. Avoid nephrotoxic's as possible. January 07: Labs reviewed. Serum creatinine robby to 2.9. Liver enzymes are improving. Patient off pressors. Patient full code. Patient intubated on ventilator. Continue to monitor renal parameters. IV fluid changed to normal saline. Continue per consultants. Anemia work-up initiated, iron panel B12 and folate level ordered. January 06: Labs reviewed. Serum creatinine up to 2.6. Medications reviewed. Continue to follow renal parameters and electrolytes. Continue to monitor liver enzymes. Allopurinol for high uric acid given. Discussed with RN. January 05: Blood pressure stable off pressors. Continue IV fluids. Monitor renal parameters. Monitor liver function tests. Hold oral Synthroid at this time. Continue treatment for sepsis and COVID-19 infection IV fluids Keep the blood pressure over 100 systolic Monitor renal parameters and electrolytes Monitor liver function tests Avoid nephrotoxic's as possible Urine studies Digoxin level Thyroid function tests Per orders Subjective ROS Limited/Unobtainable: Yes Objective Objective Last 24 Hour Vital Signs Date Time Temp Pulse Resp B/P (MAP) Pulse Ox O2 Delivery O2 Flow Rate FiO2 01/18/20 12:00 99.2 90 24 146/55 (85) 94 01/18/20 12:00 80 01/18/20 12:00 Mechanical Ventilator Mechanical Ventilator 01/18/20 11:30 90 24 144/52 (82) 94 01/18/20 11:00 88 24 130/52 (78) 96 01/18/20 10:30 84 24 118/44 (68) 97 01/18/20 10:00 81 24 121/50 (73) 95 01/18/20 09:30 80 24 122/39 (66) 97 01/18/20 09:00 83 24 115/38 (63) 96 01/18/20 08:30 82 24 106/44 (64) 98 01/18/20 08:03 81 01/18/20 08:00 80 01/18/20 08:00 81 24 107/45 (65) 98 01/18/20 08:00 Mechanical Ventilator Mechanical Ventilator 01/18/20 07:30 83 24 119/42 (67) 98 10/6/20 07:21 78 24 90 01/18/20 07:00 99.9 86 24 127/53 (77) 98 01/18/20 06:00 85 24 121/48 (72) 98 01/18/20 05:00 81 24 109/46 (67) 98 01/18/20 04:00 Mechanical Ventilator Mechanical Ventilator 01/18/20 04:00 85 01/18/20 04:00 99.6 83 24 136/46 (76) 97 01/18/20 04:00 100 01/18/20 03:00 84 24 123/50 (74) 99 01/18/20 02:55 81 24 100 01/18/20 02:00 79 24 104/46 (65) 99 01/18/20 01:00 99.6 78 24 111/42 (65) 98 01/18/20 00:00 Mechanical Ventilator Mechanical Ventilator 01/18/20 00:00 100 01/18/20 00:00 84 01/18/20 00:00 99.6 78 24 111/42 (65) 98 01/17/20 23:05 82 24 100 01/17/20 23:00 79 24 102/46 (64) 98 01/17/20 22:00 81 24 123/48 (73) 98 01/17/20 21:00 78 24 110/50 (70) 97 01/17/20 20:00 Mechanical Ventilator Mechanical Ventilator 01/17/20 20:00 100 01/17/20 20:00 86 01/17/20 20:00 99.0 83 24 122/47 (72) 01/17/20 19:22 83 24 100 01/17/20 19:00 82 24 122/51 (74) 97 01/17/20 18:00 81 23 116/72 (87) 97 01/17/20 17:00 81 24 125/40 (68) 90 01/17/20 16:00 Mechanical Ventilator Mechanical Ventilator 01/17/20 16:00 99.8 85 24 109/44 (65) 90 01/17/20 16:00 84 01/17/20 16:00 100 01/17/20 15:10 78 24 100 01/17/20 15:00 100.0 85 24 128/45 (72) 91 01/17/20 14:00 90 24 124/42 (69) 92 Intake and Output 01/17/20 01/18/20 19:00 07:00 Intake Total 601.0 ml 96 ml Output Total 30 ml 10 ml Balance 571.0 ml 86 ml IV Total 521.0 ml 96 ml Tube Feeding 80 ml 0 ml Output Urine Total 10 ml 10 ml Stool Total 20 ml Laboratory Tests 01/18/20 04:23: POC Whole Blood Glucose [Pending] 01/18/20 05:06: White Blood Count 21.3H, Red Blood Count 2.61L, Hemoglobin 6.9*L, Hematocrit 21.7L, Mean Corpuscular Volume 83, Mean Corpuscular Hemoglobin 26.5L, Mean Corpuscular Hemoglobin Concent 32.0, Red Cell Distribution Width 16.1H, Platelet Count 64L, Mean Platelet Volume 7.2, Neutrophils (%) (Auto) , Lymphocytes (%) (Auto) , Monocytes (%) (Auto) , Eosinophils (%) (Auto) , Basophils (%) (Auto) , Differential Total Cells Counted 100, Neutrophils % (Manual) 94H, Lymphocytes % (Manual) 4L, Monocytes % (Manual) 1, Eosinophils % (Manual) 0, Basophils % (Manual) 1, Band Neutrophils 0, Platelet Estimate DecreasedL, Platelet Morp hology Normal, Hypochromasia 4+, Anisocytosis 1+, Spherocytes 2+, Sodium Level 139, Potassium Level 3.8, Chloride Level 102, Carbon Dioxide Level 24, Blood Urea Nitrogen 61H, Creatinine 3.5H, Estimat Glomerular Filtration Rate 12.4, Glucose Level 111H, Calcium Level 8.3L, Phosphorus Level 5.5H, Magnesium Level 2.2, Total Bilirubin 0.7, Aspartate Amino Transf (AST/SGOT) 44H, Alanine A minotransferase (ALT/SGPT) 28, Alkaline Phosphatase 89, C-Reactive Protein, Quantitative 32.4H, Pro-B-Type Natriuretic Peptide 16836P, Total Protein 5.3L, Albumin 1.6L, Globulin 3.7, Albumin/Globulin Ratio 0.4L Height (Feet): 5 Height (Inches): 2.00 Weight (Pounds): 155 General Appearance: no apparent distress Cardiovascular: tachycardia Respiratory/Chest: decreased breath sounds Abdomen: distended Naun Mandel MD Jan 18, 2020 13:02
--- NOTE | 2020-01-18 13:13 | NUR ---
NURSE NOTES: Called [facility] for HD order for tomorrow.
--- NOTE | 2020-01-18 14:02 | NUR ---
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 99.2 HR 90 RR 24 B/P 146/55 AC 24 TV 600 FIO2 90% PEEP 8 WBC 21.3 H/H 6.9/21.7 IS: CARDIZEM GTT MEROPENEM IV MICAFUNGIN IV PROTONIX IV ICU STATUS
--- NOTE | 2020-01-18 14:36 | Surgery Progress Note ---
Surgery Progress Note Subjective Procedure Performed left subclavian central venous catheter insertion Additional Comments ill appearing no n/v Objective Last 24 Hour Vital Signs Date Time Temp Pulse Resp B/P (MAP) Pulse Ox O2 Delivery O2 Flow Rate FiO2 01/18/20 14:00 85 24 118/51 (73) 98 01/18/20 13:00 87 24 109/56 (73) 98 01/18/20 12:10 100 01/18/20 12:00 99.2 90 24 146/55 (85) 94 01/18/20 12:00 80 01/18/20 12:00 83 01/18/20 12:00 Mechanical Ventilator Mechanical Ventilator 01/18/20 11:30 90 24 144/52 (82) 94 01/18/20 11:00 88 24 130/52 (78) 96 01/18/20 10:30 84 24 118/44 (68) 97 01/18/20 10:00 81 24 121/50 (73) 95 01/18/20 09:30 80 24 122/39 (66) 97 01/18/20 09:00 83 24 115/38 (63) 96 01/18/20 08:30 82 24 106/44 (64) 98 01/18/20 08:03 81 01/18/20 08:00 80 01/18/20 08:00 81 24 107/45 (65) 98 01/18/20 08:00 Mechanical Ventilator Mechanical Ventilator 01/18/20 07:30 83 24 119/42 (67) 98 01/18/20 07:21 78 24 90 01/18/20 07:00 99.9 86 24 127/53 (77) 98 01/18/20 06:00 85 24 121/48 (72) 98 01/18/20 05:00 81 24 109/46 (67) 98 01/18/20 04:00 Mechanical Ventilator Mechanical Ventilator 01/18/20 04:00 85 01/18/20 04:00 99.6 83 24 136/46 (76) 97 01/18/20 04:00 100 01/18/20 03:00 84 24 123/50 (74) 99 01/18/20 02:55 81 24 100 01/18/20 02:00 79 24 104/46 (65) 99 01/18/20 01:00 99.6 78 24 111/42 (65) 98 01/18/20 00:00 Mechanical Ventilator Mechanical Ventilator 01/18/20 00:00 100 01/18/20 00:00 84 01/18/20 00:00 99.6 78 24 111/42 (65) 98 01/17/20 23:05 82 24 100 01/17/20 23:00 79 24 102/46 (64) 98 01/17/20 22:00 81 24 123/48 (73) 98 01/17/20 21:00 78 24 110/50 (70) 97 01/17/20 20:00 Mechanical Ventilator Mechanical Ventilator 01/17/20 20:00 100 01/17/20 20:00 86 01/17/20 20:00 99.0 83 24 122/47 (72) 01/17/20 19:22 83 24 100 01/17/20 19:00 82 24 122/51 (74) 97 01/17/20 18:00 81 23 116/72 (87) 97 01/17/20 17:00 81 24 125/40 (68) 90 01/17/20 16:00 Mechanical Ventilator Mechanical Ventilator 01/17/20 16:00 99.8 85 24 109/44 (65) 90 01/17/20 16:00 84 01/17/20 16:00 100 01/17/20 15:10 78 24 100 01/17/20 15:00 100.0 85 24 128/45 (72) 91 I&O Intake and Output 01/17/20 01/18/20 19:00 07:00 Intake Total 601.0 ml 96 ml Output Total 30 ml 10 ml Balance 571.0 ml 86 ml IV Total 521.0 ml 96 ml Tube Feeding 80 ml 0 ml Output Urine Total 10 ml 10 ml Stool Total 20 ml Dressing: other Wound: other Cardiovascular: RSR Respiratory: decreased breath sounds Abdomen: non-tender, present bowel sounds Extremities: edema Laboratory Tests Test 01/18/20 04:23 01/18/20 05:06 POC Whole Blood Glucose Pending White Blood Count 21.3 K/UL (4.8-10.8) H Red Blood Count 2.61 M/UL (4.20-5.40) L Hemoglobin 6.9 G/DL (12.0-16.0) *L Hematocrit 21.7 % (37.0-47.0) L Mean Corpuscular Volume 83 FL (80-99) Mean Corpuscular Hemoglobin 26.5 PG (27.0-31.0) L Mean Corpuscular Hemoglobin Concent 32.0 G/DL (32.0-36.0) Red Cell Distribution Width 16.1 % (11.6-14.8) H Platelet Count 64 K/UL (150-450) L Mean Platelet Volume 7.2 FL (6.5-10.1) Neutrophils (%) (Auto) % (45.0-75.0) Lymphocytes (%) (Auto) % (20.0-45.0) Monocytes (%) (Auto) % (1.0-10.0) Eosinophils (%) (Auto) % (0.0-3.0) Basophils (%) (Auto) % (0.0-2.0) Differential Total Cells Counted 100 Neutrophils % (Manual) 94 % (45-75) H Lymphocytes % (Manual) 4 % (20-45) L Monocytes % (Manual) 1 % (1-10) Eosinophils % (Manual) 0 % (0-3) Basophils % (Manual) 1 % (0-2) Band Neutrophils 0 % (0-8) Platelet Estimate Decreased L Platelet Morphology Normal Hypochromasia 4+ Anisocytosis 1+ Spherocytes 2+ Sodium Level 139 MMOL/L (136-145) Potassium Level 3.8 MMOL/L (3.5-5.1) Chloride Level 102 MMOL/L (98-107) Carbon Dioxide Level 24 MMOL/L (21-32) Blood Urea Nitrogen 61 mg/dL (7-18) H Creatinine 3.5 MG/DL (0.55-1.30) H Estimat Glomerular Filtration Rate 12.4 mL/min (>60) Glucose Level 111 MG/DL (74-106) H Calcium Level 8.3 MG/DL (8.5-10.1) L Phosphorus Level 5.5 MG/DL (2.5-4.9) H Magnesium Level 2.2 MG/DL (1.8-2.4) Total Bilirubin 0.7 MG/DL (0.2-1.0) Aspartate Amino Transf (AST/SGOT) 44 U/L (15-37) H Alanine Aminotransferase (ALT/SGPT) 28 U/L (12-78) Alkaline Phosphatase 89 U/L (46-116) C-Reactive Protein, Quantitative 32.4 mg/dL (0.00-0.90) H Pro-B-Type Natriuretic Peptide 27038 pg/mL (0-125) H Total Protein 5.3 G/DL (6.4-8.2) L Albumin 1.6 G/DL (3.4-5.0) L Globulin 3.7 g/dL Albumin/Globulin Ratio 0.4 (1.0-2.7) L Plan Problems: (1) Acute on chronic systolic (congestive) heart failure (2) CO2 retention (3) BORIS (acute kidney injury) (4) Shock liver Assessment & Plan: Hypotensive septic acute elevation in LFTs AST ALT thousands alk phos elevated. Likely shock from hypotension and acute episode. Labs trending down. IV fluid hydration. No acute intervention. Hold on imaging. Line reviewed. No bleeding noted. All 3 ports functional. Chest x-ray reviewe d. Drop in hemoglobin unlikely related to line. Will monitor. Trend labs. Transfuse PRN. And are improvement in position of previously malpositioned endotracheal tube, tip now projecting 1-2 cm above the garrett. Interim placement of an orogastric tube, tip of which projects beyond the edge of the image, presumably well within the stomach. Interim placement of a left subclavian central venous catheter, tip of which projects at the level of the innominate venous confluence. No pneumothorax. Bilateral infiltrates are again demonstrated, unchanged. Impression: Improved and now satisfactory position of endotracheal tube Interim left subclavian central venous catheter placement, no radiographically evident complication Interim orogastric intubation, apparently satisfactory Unchanged bilateral infiltrates (5) Atrial fibrillation (6) Diabetes mellitus (7) CHF (congestive heart failure) (8) Hypothyroidism Assessment & Plan: DAILY ESTIMATED NEEDS: Needs based on Critical care 54kg abw 22-30 kcals/kg 7577-1642 total kcals 1.25-2 g protein/kg 68-108 g total protein 20-25 mL/kg 8495-8114 total fluid mLs NUTRITION DIAGNOSIS: Swallowing difficulty r/t resp status as evidenced by pt adm w/ covid 19 ++, on bipap, now s/p code blue, intubated, on OGT feeds. CURRENT TF:VITAL AF 1.2 @ 55ml/hr x22 hrs ENTERAL NUTRITION RECOMMENDATIONS: VITAL AF 1.2 @ 55ml/hr x 22 hrs to provide 1210, 1452kcal, 91g prot, 981ml free water * Maintain current TF * Hold 1 hr before and after Synthroid * HOB over 30 degrees/ water flush per If renal fxn cont to worsen (creat 3.2 w/ phos 6.1 on 01/12) -> rec TF change to Nepro @ goal rate of 35ml/hr x 22 hrs to provide 770ml, 1386kcal, 62g prot (1.15g/kg), 560ml free water ADDITIONAL RECOMMENDATIONS: 1) Maintain calibrated bed scale wts daily 2) Monitor renal fxn and lytes, need for renal TF (creat worsening 3.2, phos 6.1) 3) Skin integrity: TF @ goal provides 100% RDI Odell BID 4) Monitor BGs, need for additional hypoglycemics (9) Chronic respiratory failure Assessment & Plan: Intubated intensive care unit weaning vent. ET tube in place. Chest x-ray reviewed. (10) History of hypertension (11) 2019 novel coronavirus detected Assessment & Plan: COVID positive as per ID and pulmonology appreciate input and care. Continue vent support wean as tolerated. (12) Acute respiratory failure due to COVID-19 Satinder Olivera Jan 18, 2020 14:35
--- NOTE | 2020-01-18 15:35 | Cardiology Progress Note ---
Assessment/Plan Assessment/Plan paf now persistent afib pneumonia pulm htn 90's copd dm acute covid 19 infection diastolic failure cardiopulm arrest (pt was found off bipap) respiratory acidosis ARF abn lft probable shock liver imporved abn trop likey realted to cpr anoxic encephalopathy cxr personally reviewed form 01/16 s/p remdezivir on empiric abx and steroids personally reviewed tele:afib will swith to low dose cardizem vian ngt supportive care at this time not need pressror but diana be observed for need specailly durign dialysis vent support heparin for dvt ppx in the settign of unstable renal function post arf remains critically ill and at risk of dying advanced directives noted poa avaiaLBE anemic d/w rn Subjective ROS Limited/Unobtainable: Yes Subjective remain on the vent not responsive per rn Objective Last 24 Hour Vital Signs Date Time Temp Pulse Resp B/P (MAP) Pulse Ox O2 Delivery O2 Flow Rate FiO2 01/18/20 15:00 78 24 119/48 (71) 98 01/18/20 14:30 77 24 105/52 (69) 97 01/18/20 14:00 85 24 118/51 (73) 98 01/18/20 13:30 83 24 109/54 (72) 98 01/18/20 13:00 87 24 109/56 (73) 98 01/18/20 12:30 91 24 141/46 (77) 93 01/18/20 12:10 100 01/18/20 12:00 99.2 90 24 146/55 (85) 94 01/18/20 12:00 80 01/18/20 12:00 83 01/18/20 12:00 Mechanical Ventilator Mechanical Ventilator 01/18/20 11:30 90 24 144/52 (82) 94 01/18/20 11:00 88 24 130/52 (78) 96 01/18/20 10:30 84 24 118/44 (68) 97 01/18/20 10:00 81 24 121/50 (73) 95 01/18/20 09:30 80 24 122/39 (66) 97 01/18/20 09:00 83 24 115/38 (63) 96 01/18/20 08:30 82 24 106/44 (64) 98 01/18/20 08:03 81 01/18/20 08:00 80 10/6/20 08:00 81 24 107/45 (65) 98 01/18/20 08:00 Mechanical Ventilator Mechanical Ventilator 01/18/20 07:30 83 24 119/42 (67) 98 01/18/20 07:21 78 24 90 01/18/20 07:00 99.9 86 24 127/53 (77) 98 01/18/20 06:00 85 24 121/48 (72) 98 01/18/20 05:00 81 24 109/46 (67) 98 01/18/20 04:00 Mechanical Ventilator Mechanical Ventilator 01/18/20 04:00 85 01/18/20 04:00 99.6 83 24 136/46 (76) 97 01/18/20 04:00 100 01/18/20 03:00 84 24 123/50 (74) 99 01/18/20 02:55 81 24 100 01/18/20 02:00 79 24 104/46 (65) 99 01/18/20 01:00 99.6 78 24 111/42 (65) 98 01/18/20 00:00 Mechanical Ventilator Mechanical Ventilator 01/18/20 00:00 100 01/18/20 00:00 84 01/18/20 00:00 99.6 78 24 111/42 (65) 98 01/17/20 23:05 82 24 100 01/17/20 23:00 79 24 102/46 (64) 98 01/17/20 22:00 81 24 123/48 (73) 98 01/17/20 21:00 78 24 110/50 (70) 97 01/17/20 20:00 Mechanical Ventilator Mechanical Ventilator 01/17/20 20:00 100 01/17/20 20:00 86 01/17/20 20:00 99.0 83 24 122/47 (72) 01/17/20 19:22 83 24 100 01/17/20 19:00 82 24 122/51 (74) 97 01/17/20 18:00 81 23 116/72 (87) 97 01/17/20 17:00 81 24 125/40 (68) 90 01/17/20 16:00 Mechanical Ventilator Mechanical Ventilator 01/17/20 16:00 99.8 85 24 109/44 (65) 90 01/17/20 16:00 84 01/17/20 16:00 100 General Appearance: no apparent distress, on vent, patient on isolation, isolation precautions Intake and Output 01/17/20 01/18/20 19:00 07:00 Intake Total 601.0 ml 96 ml Output Total 30 ml 10 ml Balance 571.0 ml 86 ml IV Total 521.0 ml 96 ml Tube Feeding 80 ml 0 ml Output Urine Total 10 ml 10 ml Stool Total 20 ml Laboratory Tests Test 01/18/20 04:23 01/18/20 05:06 POC Whole Blood Glucose Pending White Blood Count 21.3 K/UL (4.8-10.8) H Red Blood Count 2.61 M/UL (4.20-5.40) L Hemoglobin 6.9 G/DL (12.0-16.0) *L Hematocrit 21.7 % (37.0-47.0) L Mean Corpuscular Volume 83 FL (80-99) Mean Corpuscular Hemoglobin 26.5 PG (27.0-31.0) L Mean Corpuscular Hemoglobin Concent 32.0 G/DL (32.0-36.0) Red Cell Distribution Width 16.1 % (11.6-14.8) H Platelet Count 64 K/UL (150-450) L Mean Platelet Volume 7.2 FL (6.5-10.1) Neutrophils (%) (Auto) % (45.0-75.0) Lymphocytes (%) (Auto) % (20.0-45.0) Monocytes (%) (Auto) % (1.0-10.0) Eosinophils (%) (Auto) % (0.0-3.0) Basophils (%) (Auto) % (0.0-2.0) Differential Total Cells Counted 100 Neutrophils % (Manual) 94 % (45-75) H Lymphocytes % (Manual) 4 % (20-45) L Monocytes % (Manual) 1 % (1-10) Eosinophils % (Manual) 0 % (0-3) Basophils % (Manual) 1 % (0-2) Band Neutrophils 0 % (0-8) Platelet Estimate Decreased L Platelet Morphology Normal Hypochromasia 4+ Anisocytosis 1+ Spherocytes 2+ Sodium Level 139 MMOL/L (136-145) Potassium Level 3.8 MMOL/L (3.5-5.1) Chloride Level 102 MMOL/L (98-107) Carbon Dioxide Level 24 MMOL/L (21-32) Blood Urea Nitrogen 61 mg/dL (7-18) H Creatinine 3.5 MG/DL (0.55-1.30) H Estimat Glomerular Filtration Rate 12.4 mL/min (>60) Glucose Level 111 MG/DL (74-106) H Calcium Level 8.3 MG/DL (8.5-10.1) L Phosphorus Level 5.5 MG/DL (2.5-4.9) H Magnesium Level 2.2 MG/DL (1.8-2.4) Total Bilirubin 0.7 MG/DL (0.2-1.0) Aspartate Amino Transf (AST/SGOT) 44 U/L (15-37) H Alanine Aminotransferase (ALT/SGPT) 28 U/L (12-78) Alkaline Phosphatase 89 U/L (46-116) C-Reactive Protein, Quantitative 32.4 mg/dL (0.00-0.90) H Pro-B-Type Natriuretic Peptide 73114 pg/mL (0-125) H Total Protein 5.3 G/DL (6.4-8.2) L Albumin 1.6 G/DL (3.4-5.0) L Globulin 3.7 g/dL Albumin/Globulin Ratio 0.4 (1.0-2.7) L Objective pt with covid exam deferred remain on the vent no communicative per rn sig secretion bloody Left lip skin tear used stristrip, CDI. Inside of lip line, inserted gauze to stop bleeding. Heparin DC by MD Ely Kelsey care, Oral care provided. Turned and repositioned SpO2 100% Safety measures observed and no acute distress noted. Will continue to monitor Reginaldo Gaming MD Jan 18, 2020 15:35
--- NOTE | 2020-01-18 15:40 | NUR ---
NURSE NOTES: Dr Gaming here to see the patient. Updated him with patient's current condition. Order was entered by Dr Gaming. Will carry out his order.
[2020-01-18] MEDS: Metoclopramide 10mg/2ml Inj IVP PRN (15:55)
[2020-01-18] MEDS: dilTIAZem HCl 30mg tab ORAL SCH ×2 (15:55→21:43)
--- NOTE | 2020-01-18 15:55 | NUR ---
NURSE NOTES: PRN Reglan 10mg IVP given for high residual from tube feeding. Will hold feeding for now and recheck residual.
--- NOTE | 2020-01-18 16:00 | NUR ---
NURSE NOTES: 1st unit pRBC is done. Post-transfusion temp 99.3, HR 87, BP 115/55. No adverse transfusion reaction noted. Will continue to monitor.
--- NOTE | 2020-01-18 16:35 | NUR ---
NURSE NOTES: Started 2nd unit of pRBC. Cosigned with ALEX Hernandez. Pre-transfusion temp 99.3, HR 71, BP 103/51. Will continue to monitor.
--- NOTE | 2020-01-18 16:55 | NUR ---
NURSE NOTES: Turned off Cardizem infusion one our after Cardizem PO was given. Will continue to monitor.
--- NOTE | 2020-01-18 17:11 | Internal Med Progress Note ---
Subjective Date of Service: Jan 18, 2020 Physician Name GinHarris Attending Physician Fernando Peguero MD Current Medications Medications (Trade) Dose Ordered Sig/Brett Route PRN Reason Start Time Stop Time Status Last Admin Dose Admin Acetaminophen (Tylenol) 650 mg Q4H PRN ORAL FEVER 01/01/20 07:00 01/31/20 06:59 01/17/20 09:37 Acetaminophen (Tylenol) 650 mg Q4H PRN RECTAL Temp >100.5 01/03/20 09:30 02/02/20 09:29 01/03/20 12:18 Albuterol/ Ipratropium (Combivent Respimat) 1 puff Q4H PRN INH Shortness of Breath 01/05/20 20:00 02/04/20 19:59 Allopurinol (allopurinoL) 300 mg DAILY NG 01/07/20 10:45 02/06/20 10:44 01/18/20 08:24 Chlorhexidine Gluconate (Silvia-Hex 2%) 1 applic DAILY@1999 TOPIC 01/07/20 20:00 04/06/20 19:59 01/17/20 20:23 Dextrose (Dextrose 50%) 25 ml Q30M PRN IV Hypoglycemia 01/01/20 08:45 03/31/20 08:44 Dextrose (Dextrose 50%) 50 ml Q30M PRN IV Hypoglycemia 01/01/20 08:45 03/31/20 08:44 Diltiazem HCl (Cardizem Tab) 30 mg EVERY 8 HOURS ORAL 01/18/20 15:45 02/17/20 15:44 01/18/20 15:55 Diltiazem HCl (Cardizem) 15 mg Q12H PRN IVP For High Blood Pressure 01/03/20 07:00 02/02/20 06:59 Insulin Aspart (NovoLOG) Q6HR SUBQ 01/09/20 00:00 03/31/20 11:29 01/15/20 17:57 Levothyroxine Sodium (Synthroid) 200 mcg DAILY@0630 ORAL 01/12/20 06:30 02/11/20 06:29 01/18/20 06:08 Meropenem 500 mg/ Sodium Chloride 55 ml @ 110 mls/hr Q12H IVPB 01/16/20 17:00 01/21/20 16:59 01/18/20 05:00 Metoclopramide HCl (Reglan) 10 mg Q8H PRN IVP high residuals 01/17/20 10:30 02/16/20 10:29 01/18/20 15:55 Micafungin Sodium 100 mg/Sodium Chloride 110 ml @ 110 mls/hr Q24H IVPB 01/15/20 11:00 01/22/20 10:59 01/18/20 11:13 Midodrine (Pro-Amatine) 10 mg THREE TIMES A DAY NG 01/16/20 13:00 04/15/20 12:59 01/18/20 13:17 Norepinephrine Bitartrate 250 ml @ 0 mls/hr Q24H IV 01/16/20 10:39 01/19/20 10:38 Pantoprazole (Protonix) 40 mg Q12HR IV 01/05/20 21:00 02/04/20 08:59 01/18/20 08:24 Sevelamer Carbonate (Renvela) 800 mg THREE TIMES A DAY NG 01/14/20 13:00 04/13/20 12:59 01/18/20 13:17 Allergies: Coded Allergies: DOXYCYCLINE (Verified Allergy, Unknown, 04/04/19) RIFAMPIN (Verified Allergy, Unknown, 04/04/19) ROS Limited/Unobtainable: Yes Subjective 84 YO F admitted with hypoxia. Now COVID 19 pneumonia. Cover for Int pallavi-DR Pegueor. ICU. Intubated and sedated Objective Last Vital Signs Date Time Temp Pulse Resp B/P (MAP) Pulse Ox O2 Delivery O2 Flow Rate FiO2 01/18/20 16:00 Mechanical Ventilator Mechanical Ventilator 01/18/20 16:00 76 01/18/20 15:55 117/47 01/18/20 15:45 24 98 01/18/20 12:10 100 01/18/20 12:00 99.2 Laboratory Tests Test 01/18/20 04:23 01/18/20 05:06 POC Whole Blood Glucose Pending White Blood Count 21.3 K/UL (4.8-10.8) H Red Blood Count 2.61 M/UL (4.20-5.40) L Hemoglobin 6.9 G/DL (12.0-16.0) *L Hematocrit 21.7 % (37.0-47.0) L Mean Corpuscular Volume 83 FL (80-99) Mean Corpuscular Hemoglobin 26.5 PG (27.0-31.0) L Mean Corpuscular Hemoglobin Concent 32.0 G/DL (32.0-36.0) Red Cell Distribution Width 16.1 % (11.6-14.8) H Platelet Count 64 K/UL (150-450) L Mean Platelet Volume 7.2 FL (6.5-10.1) Neutrophils (%) (Auto) % (45.0-75.0) Lymphocytes (%) (Auto) % (20.0-45.0) Monocytes (%) (Auto) % (1.0-10.0) Eosinophils (%) (Auto) % (0.0-3.0) Basophils (%) (Auto) % (0.0-2.0) Differential Total Cells Counted 100 Neutrophils % (Manual) 94 % (45-75) H Lymphocytes % (Manual) 4 % (20-45) L Monocytes % (Manual) 1 % (1-10) Eosinophils % (Manual) 0 % (0-3) Basophils % (Manual) 1 % (0-2) Band Neutrophils 0 % (0-8) Platelet Estimate Decreased L Platelet Morphology Normal Hypochromasia 4+ Anisocytosis 1+ Spherocytes 2+ Sodium Level 139 MMOL/L (136-145) Potassium Level 3.8 MMOL/L (3.5-5.1) Chloride Level 102 MMOL/L (98-107) Carbon Dioxide Level 24 MMOL/L (21-32) Blood Urea Nitrogen 61 mg/dL (7-18) H Creatinine 3.5 MG/DL (0.55-1.30) H Estimat Glomerular Filtration Rate 12.4 mL/min (>60) Glucose Level 111 MG/DL (74-106) H Calcium Level 8.3 MG/DL (8.5-10.1) L Phosphorus Level 5.5 MG/DL (2.5-4.9) H Magnesium Level 2.2 MG/DL (1.8-2.4) Total Bilirubin 0.7 MG/DL (0.2-1.0) Aspartate Amino Transf (AST/SGOT) 44 U/L (15-37) H Alanine Aminotransferase (ALT/SGPT) 28 U/L (12-78) Alkaline Phosphatase 89 U/L (46-116) C-Reactive Protein, Quantitative 32.4 mg/dL (0.00-0.90) H Pro-B-Type Natriuretic Peptide 29036 pg/mL (0-125) H Total Protein 5.3 G/DL (6.4-8.2) L Albumin 1.6 G/DL (3.4-5.0) L Globulin 3.7 g/dL Albumin/Globulin Ratio 0.4 (1.0-2.7) L Intake and Output 01/17/20 01/18/20 19:00 07:00 Intake Total 601.0 ml 96 ml Output Total 30 ml 10 ml Balance 571.0 ml 86 ml IV Total 521.0 ml 96 ml Tube Feeding 80 ml 0 ml Output Urine Total 10 ml 10 ml Stool Total 20 ml Objective PHYSICAL EXAMINATION: GENERAL: The patient is a well-developed and well-nourished female, in moderate respiratory distress. HEENT: Eyes, pupils equal and responsive to light and accommodation. Extraocular movements are intact. NECK: Supple without lymphadenopathy. CHEST: Mech vent; Decreased breath sounds at bilateral bases with crackles. Otherwise, without wheezes. CARDIOVASCULAR: Regular rhythm and rate. S1, S2 normal without murmurs, rubs, or gallops. ABDOMEN: Soft, nontender, and nondistended. Positive bowel sounds. No evidence of hepatosplenomegaly. Currently, no rebound or guarding noted. EXTREMITIES: Negative for clubbing, cyanosis, or edema. RECTAL/GENITAL: Not performed. NEUROLOGIC: Cranial nerves II through XII are grossly intact without focal deficits. Assessment/Plan Assessment/Plan ASSESSMENT: This is an 84-year-old female with: 1. COVID-19 positive. 2. Bilateral pneumonia. 3. Hypertension. 4. Atrial fibrillation. 5. Chronic obstructive pulmonary disease. 6. Coronary artery disease. 7. Congestive heart failure. 8. Diabetes type 2. 9. Hypothyroidism. 10. Hypercholesterolemia. 11. Rheumatoid arthritis. 12. Gastroesophageal reflux disease. 13. Respiratory failure 14. S/P cardiac arrest 01/05/20 15. Renal failure TREATMENT: 1. COVID-19 positive/pneumonia. Continue decadron; S/P remdesivir 1. Pulmonary/critical care=Dr. Ann-Marie Graves. 2. Hypertension. Continue hydralazine as above. 3. Atrial fibrillation. Continue digoxin as above. 4. Chronic obstructive pulmonary disease. As above, a Pulmonary consultation has been obtained with Dr. Ann-Marie Graves. The patient is currently on albuterol nebulized q.4h. p..r.n. 5. Coronary disease/congestive heart failure. An echocardiogram is pending. A Cardiology consultation has been obtained with Dr. Gaming. 6. Diabetes type 2. NovoLog sliding scale has been instituted. 7. Hypothyroidism. Continue Synthroid as above. 8. Hypercholesterolemia. Continue atorvastatin as above. 9. Rheumatoid arthritis. 10. Gastroesophageal reflux disease. Continue Protonix as above. 11. Continue mech vent per pulmonary 12. ABX=meropenem, linezolid and micafungin 13. CODE STATUS: Full code 14. DVT prophylaxis: Heparin subcu. 15. Next hemodialysis 01/19/20 Harris Greenfield MD Jan 18, 2020 17:11
--- NOTE | 2020-01-18 17:34 | NUR ---
INSURANCE CLINICALS/REVIEW FAXED TO [facility] [phone]
--- NOTE | 2020-01-18 17:50 | NUR ---
NURSE NOTES: Cleaned and repositioned patient. Small amount of bleeding from lips and mouth still noted. O2 sat 94-96% on FiO2 100%. RR 20's. 2nd unit of pRBC is running. No adverse transfusion reaction noted. Will continue to monitor.
--- NOTE | 2020-01-18 19:14 | NUR ---
HAND-OFF: Report given to ALEX Villalba. Addendum: 01/18/20 at 1914 by TAMELA MIGUEL RN RN NURSE HAND-OFF REPORT: Latest Vital Signs: Temperature 99.3 , Pulse 78 , B/P 101 /44 , Respiratory Rate 24 , O2 SAT 98 , Mechanical Ventilator, O2 Flow Rate 10.0 . Vital Sign Comment: EKG Rhythm: Atrial Fibrillation Rhythm change?: N Notified?: Response: Latest Shaw Fall Score: 50 Fall Risk: High Risk Safety Measures: Call light Within Reach, Bed Alarm Zone 3, Side Rails Side Rails x3, Bed position Low and Locked. Fall Precautions: Yellow Socks Door Sign Patient Fall Education Report given to ALEX Villalba.
--- NOTE | 2020-01-18 19:41 | NUR ---
NURSE NOTES: received report from yadi gonzalez pt orally intubated -vent o2 sat 99% no acute resp distress taking 2nd unit blood tranfusion no apparent reaction tolerating tube feeding no residual reposition and suction
[2020-01-18] MEDS: Dyna-Hex 2% Top Sol 2oz TOPIC SCH (20:38)
--- NOTE | 2020-01-18 22:00 | NUR ---
NURSE NOTES: blood transfusion complete no apparent reaction reposition and suction
[2020-01-19] VITALS (30 sets, daily range): BP systolic 48–135; BP diastolic 35–75
--- NOTE | 2020-01-19 | NUR ---
NURSE NOTES: BS 1O8 NO COVERAGE ORDER
--- NOTE | 2020-01-19 02:00 | NUR ---
NURSE NOTES: REPOSITION AND SUCTION
--- NOTE | 2020-01-19 04:00 | NUR ---
NURSE NOTES: complete bed bath oral care and wound care done
[2020-01-19 05:04] LABS: HEMATOCRIT 29.9 % (37.0-47.0); HEMOGLOBIN 9.8 G/DL (12.0-16.0); MEAN CORPUSCULAR VOLUME 84 FL (80-99); PLATELET COUNT 54 K/UL (150-450); RED BLOOD COUNT 3.57 M/UL (4.20-5.40); RED CELL DISTRIBUTION WIDTH 15.9 % (11.6-14.8)
[2020-01-19] MEDS: Meropenem 500mg/NS 55ml IVPB SCH ×4 (05:04→20:54)
[2020-01-19 05:13] LABS: WHITE BLOOD COUNT 24.5 K/UL (4.8-10.8)
[2020-01-19] MEDS: NovoLOG Insulin Flexpen SUBQ SCH ×4 (05:43→17:52)
[2020-01-19] MEDS: dilTIAZem HCl 30mg tab ORAL SCH ×3 (05:43→22:00)
[2020-01-19 05:45] LABS: ALBUMIN 1.6 G/DL (3.4-5.0); ALBUMIN/GLOBULIN RATIO 0.4 (1.0-2.7); BILIRUBIN,TOTAL 0.8 MG/DL (0.2-1.0); CALCIUM 8.5 MG/DL (8.5-10.1); PHOSPHORUS 5.9 MG/DL (2.5-4.9); POTASSIUM 4.3 MMOL/L (3.5-5.1)
--- NOTE | 2020-01-19 06:00 | NUR ---
NURSE NOTES: BS IO6 NO COVERAGE ORDER
--- NOTE | 2020-01-19 07:12 | NUR ---
NURSE HAND-OFF REPORT: Latest Vital Signs: Temperature 98.6 , Pulse 97 , B/P 121 /56 , Respiratory Rate 23 , O2 SAT 95 , Mechanical Ventilator, O2 Flow Rate 10.0 . Vital Sign Comment: EKG Rhythm: Atrial Fibrillation Rhythm change?: N Notified?: Eliezer Gaming MD Response: No New Orders Received Latest Shaw Fall Score: 50 Fall Risk: High Risk Safety Measures: Call light Within Reach, Bed Alarm Zone 3, Side Rails Side Rails x3, Bed position Low and Locked. Fall Precautions: Yellow Socks Door Sign Patient Fall Education Report given to LIZBETH JOHNSON USING SBAR.
--- NOTE | 2020-01-19 07:13 | NUR ---
NURSE NOTES: Report received from ALEX Villalba. Patient opens eyes to pain. Unable to make eye contact. Unable to follow commands. Non-verbal. A-fib on cardiac surgeon with HR 90's. Orally intubated. AC 24, TV 600, FiO2 100%, P 8. O2 sat 95-97%. Small amount of bleeding from lips and mouth noted. Left NGT in place. Feeding held for Synthroid. Kelsey in place. Oliguric. Right IJ Patrick with pigtail for HD noted. Left subclavian TLC patent and asymptomatic, open for TKO. Bed in lowest position. Side rails up x3. Will resume plan of care.
[2020-01-19] MEDS: Renvela 800mg Pkt NG SCH ×3 (08:22→17:11)
[2020-01-19] MEDS: Midodrine 10mg tab NG SCH ×3 (08:23→17:11)
[2020-01-19] MEDS: Pantoprazole Inj IV SCH ×2 (08:23→20:53)
[2020-01-19] MEDS: Metoclopramide 10mg/2ml Inj IVP PRN (08:50)
--- NOTE | 2020-01-19 08:50 | NUR ---
NURSE NOTES: PRN Tylenol 650mg PO and Reglan 10mg IVP given for fever 100.5 and high residual. Will reassess the patient.
--- NOTE | 2020-01-19 09:22 | Nephrology Progress Note ---
Assessment/Plan Problem List: (1) BORIS (acute kidney injury) (2) 2019 novel coronavirus detected (3) Hypothyroidism (4) Diabetes mellitus (5) Atrial fibrillation (6) Shock liver Assessment 85-year-old female admitted 5 days ago, at the time serum creatinine was 0.9 and today the serum creatinine is 1.4, most likely BORIS Hypernatremia secondary to free water deficit Prerenal azotemia COVID-19 virus detected Acute on chronic systolic congestive heart failure Atrial fibrillation Diabetes mellitus Hypothyroidism Hypertension Acute on chronic respiratory failure Plan January 18: Patient transfused yesterday. Due for dialysis today. Continue current treatment plan. Full code, remains intubated. January 17: Hemoglobin is low today. Due for 2 units of packed RBCs transfusion. Serum creatinine rising. Hemodialysis tomorrow. Continue per consultants. Remains full code and on mechanical ventilation. January 16: Dialyzed yesterday. Ultrafiltration done 2 L. Labs reviewed. Remains intubated on ventilator. Full code. Continue to monitor renal parameters and arrange for dialysis as needed. January 15: Due for dialysis today. Patient hypotensive. Will start pressors and midodrine if needed. Will aim to dialyze and remove excess fluid as possible. Patient full code. Prognosis poor. January 14: Dialyzed yesterday. 2000 mL fluid ultrafiltrated during dialysis. Will dialyze again tomorrow. Continue per consultants. Labs reviewed. Medicat ion list reviewed. Continue as is. January 13: Creatinine rising. Other labs and medication reviewed. Patient intubated. Patient full code. Consent for dialysis catheter is obtained. Will order dialysis after insertion of the non-tunneled dialysis catheter. Discussed with ALEX Hernandez. January 12: Serum creatinine rising. Patient was transfused. Remains full code. Remains intubated on ventilator. Will get consent for placement of non- tunneled dialysis catheter. Further worsening renal parameters may lead to the need for dialysis treatment. Per orders. January 11: Labs reviewed. Serum creatinine higher. Hemoglobin lower. Transfusion 2 units packed RBCs today. Continue to monitor renal parameters. Avoid nephrotoxic's. January 10: Labs reviewed. Serum creatinine 2.5. Liver enzymes are lowering. Remains full code. Remains intubated. Electrolyte abnormalities addressed. Continue per consultants. January 09: Lab reviewed. Serum creatinine lower at 2.6. Liver enzymes are lowering. Patient remains full code and remains intubated. Continue current management. Continue to follow renal parameters. Continue per consultants. Start Cardizem 30 mg every 8 hours via NG tube for elevated blood pressure January 08: Lab reviewed. Serum creatinine 2.8. LFTs improving. Remains intubated. Remains full code. Continue per consultants. Continue to monitor renal parameters. Avoid nephrotoxic's as possible. January 07: Labs reviewed. Serum creatinine robby to 2.9. Liver enzymes are improving. Patient off pressors. Patient full code. Patient intubated on ventilator. Continue to monitor renal parameters. IV fluid changed to normal saline. Continue per consultants. Anemia work-up initiated, iron panel B12 and folate level ordered. January 06: Labs reviewed. Serum creatinine up to 2.6. Medications reviewed. Continue to follow renal parameters and electrolytes. Continue to monitor liver enzymes. Allopurinol for high uric acid given. Discussed with RN. January 05: Blood pressure stable off pressors. Continue IV fluids. Monitor renal parameters. Monitor liver function tests. Hold oral Synthroid at this time. Continue treatment for sepsis and COVID-19 infection IV fluids Keep the blood pressure over 100 systolic Monitor renal parameters and electrolytes Monitor liver function tests Avoid nephrotoxic's as possible Urine studies Digoxin level Thyroid function tests Per orders Subjective ROS Limited/Unobtainable: Yes Objective Objective Last 24 Hour Vital Signs Date Time Temp Pulse Resp B/P (MAP) Pulse Ox O2 Delivery O2 Flow Rate FiO2 01/19/20 08:00 100 01/19/20 08:00 100.5 100 24 124/57 (79) 96 01/19/20 07:00 97 23 121/56 (77) 95 01/19/20 06:50 104 24 90 01/19/20 06:00 91 24 127/52 (77) 96 01/19/20 05:43 87 95/49 01/19/20 05:00 91 24 124/57 (79) 93 01/19/20 04:00 98.6 86 24 121/47 (71) 97 01/19/20 04:00 Mechanical Ventilator Mechanical Ventilator 01/19/20 04:00 100 01/19/20 04:00 90 01/19/20 03:10 86 24 90 01/19/20 03:03 91 24 48/55 (53) 98 01/19/20 02:00 97 24 113/55 (74) 98 01/19/20 01:00 84 24 103/53 (70) 98 01/19/20 00:00 Mechanical Ventilator Mechanical Ventilator 01/19/20 00:00 99.8 85 24 110/50 (70) 98 01/19/20 00:00 81 01/19/20 00:00 100 01/18/20 23:47 84 24 90 01/18/20 23:00 84 24 101/61 (74) 98 01/18/20 22:00 84 24 104/44 (64) 98 01/18/20 21:43 84 101/56 01/18/20 21:00 84 24 127/50 (75) 98 01/18/20 21:00 86 24 90 01/18/20 20:00 99.5 81 24 115/60 (78) 98 01/18/20 20:00 81 01/18/20 20:00 Mechanical Ventilator Mechanical Ventilator 01/18/20 20:00 100 01/18/20 19:00 78 24 101/44 (63) 98 01/18/20 18:00 82 24 113/52 (72) 95 01/18/20 17:00 79 24 107/49 (68) 97 01/18/20 17:00 79 24 107/49 (68) 97 01/18/20 16:45 79 24 117/54 (75) 98 01/18/20 16:30 79 24 103/51 (68) 98 01/18/20 16:30 80 24 103/51 (68) 99 01/18/20 16:15 79 24 105/54 (71) 97 01/18/20 16:00 Mechanical Ventilator Mechanical Ventilator 01/18/20 16:00 99.3 79 24 115/55 (75) 99 01/18/20 16:00 80 24 115/55 (75) 98 01/18/20 16:00 76 01/18/20 15:55 87 117/47 01/18/20 15:45 83 24 117/47 (70) 98 01/18/20 15:30 81 23 101/56 (71) 98 01/18/20 15:15 75 24 107/59 (75) 99 01/18/20 15:11 82 24 90 01/18/20 15:00 78 24 119/48 (71) 98 01/18/20 14:30 77 24 105/52 (69) 97 01/18/20 14:00 85 24 118/51 (73) 98 01/18/20 13:30 83 24 109/54 (72) 98 01/18/20 13:00 87 24 109/56 (73) 98 01/18/20 12:30 91 24 141/46 (77) 93 01/18/20 12:10 100 01/18/20 12:00 99.2 90 24 146/55 (85) 94 01/18/20 12:00 80 01/18/20 12:00 83 01/18/20 12:00 Mechanical Ventilator Mechanical Ventilator 01/18/20 11:30 90 24 144/52 (82) 94 01/18/20 11:12 83 24 90 01/18/20 11:00 88 24 130/52 (78) 96 01/18/20 10:30 84 24 118/44 (68) 97 01/18/20 10:00 81 24 121/50 (73) 95 01/18/20 09:30 80 24 122/39 (66) 97 Intake and Output 01/18/20 01/19/20 19:00 07:00 Intake Total 978.916 ml 275 ml Output Total 0 ml 20 ml Balance 978.916 ml 255 ml Free Water 40 ml IV Total 488.916 ml 55 ml Tube Feeding 130 ml 180 ml Blood Product 250 ml Other 110 ml Output Urine Total 0 ml 20 ml # Bowel Movements 1 Laboratory Tests 01/18/20 17:22: POC Whole Blood Glucose 106 01/18/20 20:47: POC Whole Blood Glucose [Pending] 01/18/20 23:24: POC Whole Blood Glucose [Pending] 01/19/20 04:20: White Blood Count 24.5*H, Red Blood Count 3.57L, Hemoglobin 9.8#L, Hematocrit 29.9#L, Mean Corpuscular Volume 84, Mean Corpuscular Hemoglobin 27.4, Mean Corpuscular Hemoglobin Concent 32.8, Red Cell Distribution Width 15.9H, Platelet Count 54L, Mean Platelet Volume 8.7, Neutrophils (%) (Auto) , Lymphocytes (%) (Auto) , Monocytes (%) (Auto) , Eosinophils (%) (Auto) , Basophils (%) (Auto) , Differential Total Cells Counted 100, Neutrophils % (Manual) 82H, Lymphocytes % (Manual) 3L, Monocytes % (Manual) 2, Eosinophils % (Manual) 0, Basophils % (Manual) 0, Band Neutrophils 13H, Platelet Estimate DecreasedL, Platelet Morphology Normal, Anisocytosis 1+, Sodium Level 140, Potassium Level 4.3, Chloride Level 102, Carbon Dioxide Level 22, Anion Gap 17H, Blood Urea Nitrogen 65H, Creatinine 4.0H, Estimat Glomerular Filtration Rate 10.6, Glucose Level 111H, Calcium Level 8.5, Phosphorus Level 5.9H, Magnesium Level 2.1, Total Bilirubin 0.8, Aspartate Amino Transf (AST/SGOT) 49H, Alanine Aminotransferase (ALT/SGPT) 23, Alkaline Phosphatase 99, C-Reactive Protein, Quantitative 31.6H, Pro-B-Type Natriuretic Peptide [id number], Total Protein 5.8L, Albumin 1.6L, Globulin 4.2, Albumin/Globulin Ratio 0.4L 01/19/20 07:48: Arterial Blood pH 7.274L, Arterial Blood Partial Pressure CO2 45.6H, Arterial Blood Partial Pressure O2 73.1L, Arterial Blood HCO3 20.7L, Arterial Blood Oxygen Saturation 92.7L, Arterial Blood Base Excess -6.0L, Chester Test Positive Height (Feet): 5 Height (Inches): 2.00 Weight (Pounds): 155 General Appearance: no apparent distress Cardiovascular: tachycardia Respiratory/Chest: decreased breath sounds Abdomen: distended Naun Mandel MD Jan 19, 2020 09:22
--- NOTE | 2020-01-19 09:34 | NUR ---
NURSE NOTES: [facility] [employer] phone was picked up and taken by Laly Ritchie, cousin of the patient. Updated belonging list. No belongings left now.
--- NOTE | 2020-01-19 09:50 | NUR ---
RADIOLOGY DEPT., CHEST X-RAY DONE.-P.DYE
--- NOTE | 2020-01-19 10:10 | NUR ---
NURSE NOTES: Patient is getting dialysis at bedside. Spoke with pharmacist. Will administer Micafungin after dialysis.
--- NOTE | 2020-01-19 10:13 | Infectious Diseases Prog Note ---
Assessment/Plan Assessment: Asystole arrest Severe Sepsis COVID19 pneumonia Acute hypoxic resp failure sp NRB> Bipap 100% Fio2> VDRF 100% >80%> 100% -01/15 CXR:Minimal improvement in the degree of airspace opacity involving the left lower lung field.No pneumothorax. -01/13 Sp cx ESBL K,.pna, c. albicans Ucx C. albicans -01/01 CXR: Vascular congestion/developing failure and bilateral patchy infiltrates, slightly worse since prior exam. Small bilateral pleural effusions.Prominent mediastinum likely due to tortuous/ectatic thoracic aorta. -12/31 CXR: Centrally predominant interstitial and airspace opacities, pulmonary edema most likely. Cardiomegaly. Gram positive bacteremia- real vs contaminant- r/o line infection -01/16 Bcx 05/18 GPC clusters Fever; recurrent; improving Leukocytosis; improving Dm2 COPD HTN former smoker CAD CHF RA GERD hypothyroidism Afib [place] resident ([facility]) Plan: -f/u Repeat Cultures - Continue Meropenem #11/21- - cont Micafungin #08/16-7 -Start IV Vancomycin for GPC bacteremia -01/17 SP Linezolid #11 - 01/10 SP Zosyn #6 - 01/09/20 SP Remdesivir #5 - 01/07/20 Ceftriaxone #7 - 12/31 SP Cefepime x1, Flagyl x1 -f/u cx -Monitor CBC/CMP, temperatures -ETT/ICU care -repeat bcx x2 (peripheral, SVC, HD line); may need removal of lines D/w RN and micro staff. Thank you for consulting [facility]. Will continue to follow along with you. Subjective Allergies: Coded Allergies: DOXYCYCLINE (Verified Allergy, Unknown, 04/04/19) RIFAMPIN (Verified Allergy, Unknown, 04/04/19) Tm 100.5 wbc overall improved thrombocytopenia worsening Cr increasing Fio2 100% bacteremic Objective Last 24 Hour Vital Signs Date Time Temp Pulse Resp B/P (MAP) Pulse Ox O2 Delivery O2 Flow Rate FiO2 01/19/20 08:00 100 01/19/20 08:00 100.5 100 24 124/57 (79) 96 01/19/20 07:00 97 23 121/56 (77) 95 01/19/20 06:50 104 24 90 01/19/20 06:00 91 24 127/52 (77) 96 01/19/20 05:43 87 95/49 01/19/20 05:00 91 24 124/57 (79) 93 01/19/20 04:00 98.6 86 24 121/47 (71) 97 01/19/20 04:00 Mechanical Ventilator Mechanical Ventilator 01/19/20 04:00 100 01/19/20 04:00 90 01/19/20 03:10 86 24 90 01/19/20 03:03 91 24 48/55 (53) 98 01/19/20 02:00 97 24 113/55 (74) 98 01/19/20 01:00 84 24 103/53 (70) 98 01/19/20 00:00 Mechanical Ventilator Mechanical Ventilator 01/19/20 00:00 99.8 85 24 110/50 (70) 98 01/19/20 00:00 81 01/19/20 00:00 100 01/18/20 23:47 84 24 90 01/18/20 23:00 84 24 101/61 (74) 98 01/18/20 22:00 84 24 104/44 (64) 98 01/18/20 21:43 84 101/56 01/18/20 21:00 84 24 127/50 (75) 98 01/18/20 21:00 86 24 90 01/18/20 20:00 99.5 81 24 115/60 (78) 98 01/18/20 20:00 81 01/18/20 20:00 Mechanical Ventilator Mechanical Ventilator 01/18/20 20:00 100 01/18/20 19:00 78 24 101/44 (63) 98 01/18/20 18:00 82 24 113/52 (72) 95 01/18/20 17:00 79 24 107/49 (68) 97 01/18/20 17:00 79 24 107/49 (68) 97 01/18/20 16:45 79 24 117/54 (75) 98 01/18/20 16:30 79 24 103/51 (68) 98 01/18/20 16:30 80 24 103/51 (68) 99 01/18/20 16:15 79 24 105/54 (71) 97 01/18/20 16:00 Mechanical Ventilator Mechanical Ventilator 01/18/20 16:00 99.3 79 24 115/55 (75) 99 10/6/20 16:00 80 24 115/55 (75) 98 01/18/20 16:00 76 01/18/20 15:55 87 117/47 01/18/20 15:45 83 24 117/47 (70) 98 01/18/20 15:30 81 23 101/56 (71) 98 01/18/20 15:15 75 24 107/59 (75) 99 01/18/20 15:11 82 24 90 01/18/20 15:00 78 24 119/48 (71) 98 01/18/20 14:30 77 24 105/52 (69) 97 01/18/20 14:00 85 24 118/51 (73) 98 01/18/20 13:30 83 24 109/54 (72) 98 01/18/20 13:00 87 24 109/56 (73) 98 01/18/20 12:30 91 24 141/46 (77) 93 01/18/20 12:10 100 01/18/20 12:00 99.2 90 24 146/55 (85) 94 01/18/20 12:00 80 01/18/20 12:00 83 01/18/20 12:00 Mechanical Ventilator Mechanical Ventilator 01/18/20 11:30 90 24 144/52 (82) 94 01/18/20 11:12 83 24 90 01/18/20 11:00 88 24 130/52 (78) 96 01/18/20 10:30 84 24 118/44 (68) 97 Height (Feet): 5 Height (Inches): 2.00 Weight (Pounds): 155 General Appearance:Chronically Ill Neck: supple\ Respiratory: normal inspection, no respiratory distress, no retraction, rales Cardiovascular #1: regular rate, rhythm, edema Gastrointestinal: normal inspection, normal bowel sounds, non tender, soft, no guarding, no hernia Microbiology Date/Time Source Procedure Growth Status 01/17/20 16:00 Blood Blood Culture - Preliminary Resulted 01/17/20 15:45 Blood Blood Culture - Preliminary Resulted Laboratory Tests Test 01/18/20 17:22 01/18/20 20:47 01/18/20 23:24 01/19/20 04:20 POC Whole Blood Glucose 106 MG/DL (74-106) Pending Pending White Blood Count 24.5 K/UL (4.8-10.8) *H Red Blood Count 3.57 M/UL (4.20-5.40) L Hemoglobin 9.8 G/DL (12.0-16.0) #L Hematocrit 29.9 % (37.0-47.0) #L Mean Corpuscular Volume 84 FL (80-99) Mean Corpuscular Hemoglobin 27.4 PG (27.0-31.0) Mean Corpuscular Hemoglobin Concent 32.8 G/DL (32.0-36.0) Red Cell Distribution Width 15.9 % (11.6-14.8) H Platelet Count 54 K/UL (150-450) L Mean Platelet Volume 8.7 FL (6.5-10.1) Neutrophils (%) (Auto) % (45.0-75.0) Lymphocytes (%) (Auto) % (20.0-45.0) Monocytes (%) (Auto) % (1.0-10.0) Eosinophils (%) (Auto) % (0.0-3.0) Basophils (%) (Auto) % (0.0-2.0) Differential Total Cells Counted 100 Neutrophils % (Manual) 82 % (45-75) H Lymphocytes % (Manual) 3 % (20-45) L Monocytes % (Manual) 2 % (1-10) Eosinophils % (Manual) 0 % (0-3) Basophils % (Manual) 0 % (0-2) Band Neutrophils 13 % (0-8) H Platelet Estimate Decreased L Platelet Morphology Normal Anisocytosis 1+ Sodium Level 140 MMOL/L (136-145) Potassium Level 4.3 MMOL/L (3.5-5.1) Chloride Level 102 MMOL/L (98-107) Carbon Dioxide Level 22 MMOL/L (21-32) Anion Gap 17 mmol/L (5-15) H Blood Urea Nitrogen 65 mg/dL (7-18) H Creatinine 4.0 MG/DL (0.55-1.30) H Estimat Glomerular Filtration Rate 10.6 mL/min (>60) Glucose Level 111 MG/DL (74-106) H Calcium Level 8.5 MG/DL (8.5-10.1) Phosphorus Level 5.9 MG/DL (2.5-4.9) H Magnesium Level 2.1 MG/DL (1.8-2.4) Total Bilirubin 0.8 MG/DL (0.2-1.0) Aspartate Amino Transf (AST/SGOT) 49 U/L (15-37) H Alanine Aminotransferase (ALT/SGPT) 23 U/L (12-78) Alkaline Phosphatase 99 U/L (46-116) C-Reactive Protein, Quantitative 31.6 mg/dL (0.00-0.90) H Pro-B-Type Natriuretic Peptide 55716 pg/mL (0-125) H Total Protein 5.8 G/DL (6.4-8.2) L Albumin 1.6 G/DL (3.4-5.0) L Globulin 4.2 g/dL Albumin/Globulin Ratio 0.4 (1.0-2.7) L Test 01/19/20 07:48 Arterial Blood pH 7.274 (7.350-7.450) Arterial Blood Partial Pressure CO2 45.6 mmHg (35.0-45.0) H Arterial Blood Partial Pressure O2 73.1 mmHg (75.0-100.0) L Arterial Blood HCO3 20.7 mmol/L (22.0-26.0) L Arterial Blood Oxygen Saturation 92.7 % (95-100) L Arterial Blood Base Excess -6.0 (-2-2) L [place] Test Positive Current Medications Medications (Trade) Dose Ordered Sig/Brett Route PRN Reason Start Time Stop Time Status Last Admin Dose Admin Acetaminophen (Tylenol) 650 mg Q4H PRN ORAL FEVER 01/01/20 07:00 01/31/20 06:59 01/19/20 08:50 Acetaminophen (Tylenol) 650 mg Q4H PRN RECTAL Temp >100.5 01/03/20 09:30 02/02/20 09:29 01/03/20 12:18 Albuterol/ Ipratropium (Combivent Respimat) 1 puff Q4H PRN INH Shortness of Breath 01/05/20 20:00 02/04/20 19:59 Allopurinol (allopurinoL) 300 mg DAILY NG 01/07/20 10:45 02/06/20 10:44 01/19/20 08:23 Chlorhexidine Gluconate (Silvia-Hex 2%) 1 applic DAILY@1999 TOPIC 01/07/20 20:00 04/06/20 19:59 01/18/20 20:38 Dextrose (Dextrose 50%) 25 ml Q30M PRN IV Hypoglycemia 01/01/20 08:45 03/31/20 08:44 Dextrose (Dextrose 50%) 50 ml Q30M PRN IV Hypoglycemia 01/01/20 08:45 03/31/20 08:44 Diltiazem HCl (Cardizem Tab) 30 mg EVERY 8 HOURS ORAL 01/18/20 15:45 02/17/20 15:44 01/19/20 05:43 Diltiazem HCl (Cardizem) 15 mg Q12H PRN IVP For High Blood Pressure 01/03/20 07:00 02/02/20 06:59 Insulin Aspart (NovoLOG) Q6HR SUBQ 01/09/20 00:00 03/31/20 11:29 01/15/20 17:57 Levothyroxine Sodium (Synthroid) 200 mcg DAILY@0630 ORAL 01/12/20 06:30 02/11/20 06:29 01/19/20 05:45 Meropenem 500 mg/ Sodium Chloride 55 ml @ 110 mls/hr Q24H IVPB 01/19/20 21:00 01/24/20 20:59 Metoclopramide HCl (Reglan) 10 mg Q8H PRN IVP high residuals 01/17/20 10:30 02/16/20 10:29 01/19/20 08:50 Micafungin Sodium 100 mg/Sodium Chloride 110 ml @ 110 mls/hr Q24H IVPB 01/15/20 11:00 01/22/20 10:59 01/18/20 11:13 Midodrine (Pro-Amatine) 10 mg THREE TIMES A DAY NG 01/16/20 13:00 04/15/20 12:59 01/19/20 08:23 Norepinephrine Bitartrate 250 ml @ 0 mls/hr Q24H IV 01/16/20 10:39 01/19/20 10:38 Pantoprazole (Protonix) 40 mg Q12HR IV 01/05/20 21:00 02/04/20 08:59 01/19/20 08:23 Sevelamer Carbonate (Renvela) 800 mg THREE TIMES A DAY NG 01/14/20 13:00 04/13/20 12:59 01/19/20 08:22 Adrienne Cook M.D. Jan 19, 2020 10:13
--- NOTE | 2020-01-19 10:38 | Pulmonolgy Critical Care Note ---
Critical Care - Asmt/Plan Problems: (1) Acute respiratory failure due to COVID-19 (2) BORIS (acute kidney injury) (3) Acute on chronic systolic (congestive) heart failure (4) Atrial fibrillation (5) Diabetes mellitus (6) CHF (congestive heart failure) (7) Hypothyroidism (8) Chronic respiratory failure (9) History of hypertension Respiratory: monitor respiratory rate, adjust FIO2, CXR Cardiac: continue to monitor HR/BP Renal: F/U I&O, check electrolytes Infectious Disease: check cultures, continue antibiotics Gastrointestinal: continue feedings/current rate Endocrine: monitor blood sugar, continue sliding scale insulin Hematologic: monitor H/H, transfuse if hgb<8.5 Neurologic: PRN Ativan, keep patient comfortable Affect: PRN ativan Prophylaxis: Protonix, Heparin Time Spent (Minutes): 40 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, 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 Discussed with: nurses, consultants, case management 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 program manager - Objective Last 24 Hour Vital Signs Date Time Temp Pulse Resp B/P (MAP) Pulse Ox O2 Delivery O2 Flow Rate FiO2 01/19/20 09:20 100.0 01/19/20 08:00 Mechanical Ventilator Mechanical Ventilator 01/19/20 08:00 100 01/19/20 08:00 100.5 100 24 124/57 (79) 96 01/19/20 07:00 97 23 121/56 (77) 95 01/19/20 06:50 104 24 90 01/19/20 06:00 91 24 127/52 (77) 96 01/19/20 05:43 87 95/49 01/19/20 05:00 91 24 124/57 (79) 93 01/19/20 04:00 98.6 86 24 121/47 (71) 97 01/19/20 04:00 Mechanical Ventilator Mechanical Ventilator 01/19/20 04:00 100 01/19/20 04:00 90 01/19/20 03:10 86 24 90 01/19/20 03:03 91 24 48/55 (53) 98 01/19/20 02:00 97 24 113/55 (74) 98 01/19/20 01:00 84 24 103/53 (70) 98 01/19/20 00:00 Mechanical Ventilator Mechanical Ventilator 01/19/20 00:00 99.8 85 24 110/50 (70) 98 01/19/20 00:00 81 01/19/20 00:00 100 01/18/20 23:47 84 24 90 01/18/20 23:00 84 24 101/61 (74) 98 01/18/20 22:00 84 24 104/44 (64) 98 01/18/20 21:43 84 101/56 01/18/20 21:00 84 24 127/50 (75) 98 01/18/20 21:00 86 24 90 01/18/20 20:00 99.5 81 24 115/60 (78) 98 01/18/20 20:00 81 01/18/20 20:00 Mechanical Ventilator Mechanical Ventilator 01/18/20 20:00 100 01/18/20 19:00 78 24 101/44 (63) 98 01/18/20 18:00 82 24 113/52 (72) 95 01/18/20 17:00 79 24 107/49 (68) 97 01/18/20 17:00 79 24 107/49 (68) 97 01/18/20 16:45 79 24 117/54 (75) 98 01/18/20 16:30 79 24 103/51 (68) 98 01/18/20 16:30 80 24 103/51 (68) 99 01/18/20 16:15 79 24 105/54 (71) 97 01/18/20 16:00 Mechanical Ventilator Mechanical Ventilator 01/18/20 16:00 99.3 79 24 115/55 (75) 99 01/18/20 16:00 80 24 115/55 (75) 98 01/18/20 16:00 76 01/18/20 15:55 87 117/47 01/18/20 15:45 83 24 117/47 (70) 98 01/18/20 15:30 81 23 101/56 (71) 98 01/18/20 15:15 75 24 107/59 (75) 99 01/18/20 15:11 82 24 90 01/18/20 15:00 78 24 119/48 (71) 98 01/18/20 14:30 77 24 105/52 (69) 97 01/18/20 14:00 85 24 118/51 (73) 98 01/18/20 13:30 83 24 109/54 (72) 98 01/18/20 13:00 87 24 109/56 (73) 98 01/18/20 12:30 91 24 141/46 (77) 93 01/18/20 12:10 100 01/18/20 12:00 99.2 90 24 146/55 (85) 94 01/18/20 12:00 80 01/18/20 12:00 83 01/18/20 12:00 Mechanical Ventilator Mechanical Ventilator 01/18/20 11:30 90 24 144/52 (82) 94 01/18/20 11:12 83 24 90 01/18/20 11:00 88 24 130/52 (78) 96 Status: sedated Condition: critical HEENT: atraumatic, normocephalic Lungs: clear Heart: HR/BP stable Abdomen: soft, active bowel sounds Extremities: edema Micro: Microbiology Date/Time Source Procedure Growth Status 01/17/20 16:00 Blood Blood Culture - Preliminary Resulted 01/17/20 15:45 Blood Blood Culture - Preliminary Resulted Accucheck: 106 Critical Care - Subjective ROS Limited/Unobtainable: Yes Interval Events: getting dialyzed Condition: critical EKG Rhythm: Sinus Rhythm FI02: 100 Vent Support Breath Rate: 24 Vent Support Mode: AC Vent Tidal Volume: 600 Sputum Amount: Moderate PEEP: 8.0 PIP: 51 Tube Feeding Amount: 0 I&O: Intake and Output 01/18/20 01/19/20 19:00 07:00 Intake Total 978.916 ml 275 ml Output Total 0 ml 20 ml Balance 978.916 ml 255 ml Free Water 40 ml IV Total 488.916 ml 55 ml Tube Feeding 130 ml 180 ml Blood Product 250 ml Other 110 ml Output Urine Total 0 ml 20 ml # Bowel Movements 1 CXR: Stable or slightly worse bilateral infiltrates, over one day ET-Tube: 7.0 ET Position: 25 Labs: Laboratory Tests Test 01/18/20 17:22 01/18/20 20:47 01/18/20 23:24 01/19/20 04:20 POC Whole Blood Glucose 106 MG/DL (74-106) Pending Pending White Blood Count 24.5 K/UL (4.8-10.8) *H Red Blood Count 3.57 M/UL (4.20-5.40) L Hemoglobin 9.8 G/DL (12.0-16.0) #L Hematocrit 29.9 % (37.0-47.0) #L Mean Corpuscular Volume 84 FL (80-99) Mean Corpuscular Hemoglobin 27.4 PG (27.0-31.0) Mean Corpuscular Hemoglobin Concent 32.8 G/DL (32.0-36.0) Red Cell Distribution Width 15.9 % (11.6-14.8) H Platelet Count 54 K/UL (150-450) L Mean Platelet Volume 8.7 FL (6.5-10.1) Neutrophils (%) (Auto) % (45.0-75.0) Lymphocytes (%) (Auto) % (20.0-45.0) Monocytes (%) (Auto) % (1.0-10.0) Eosinophils (%) (Auto) % (0.0-3.0) Basophils (%) (Auto) % (0.0-2.0) Differential Total Cells Counted 100 Neutrophils % (Manual) 82 % (45-75) H Lymphocytes % (Manual) 3 % (20-45) L Monocytes % (Manual) 2 % (1-10) Eosinophils % (Manual) 0 % (0-3) Basophils % (Manual) 0 % (0-2) Band Neutrophils 13 % (0-8) H Platelet Estimate Decreased L Platelet Morphology Normal Anisocytosis 1+ Sodium Level 140 MMOL/L (136-145) Potassium Level 4.3 MMOL/L (3.5-5.1) Chloride Level 102 MMOL/L (98-107) Carbon Dioxide Level 22 MMOL/L (21-32) Anion Gap 17 mmol/L (5-15) H Blood Urea Nitrogen 65 mg/dL (7-18) H Creatinine 4.0 MG/DL (0.55-1.30) H Estimat Glomerular Filtration Rate 10.6 mL/min (>60) Glucose Level 111 MG/DL (74-106) H Calcium Level 8.5 MG/DL (8.5-10.1) Phosphorus Level 5.9 MG/DL (2.5-4.9) H Magnesium Level 2.1 MG/DL (1.8-2.4) Total Bilirubin 0.8 MG/DL (0.2-1.0) Aspartate Amino Transf (AST/SGOT) 49 U/L (15-37) H Alanine Aminotransferase (ALT/SGPT) 23 U/L (12-78) Alkaline Phosphatase 99 U/L (46-116) C-Reactive Protein, Quantitative 31.6 mg/dL (0.00-0.90) H Pro-B-Type Natriuretic Peptide 49005 pg/mL (0-125) H Total Protein 5.8 G/DL (6.4-8.2) L Albumin 1.6 G/DL (3.4-5.0) L Globulin 4.2 g/dL Albumin/Globulin Ratio 0.4 (1.0-2.7) L Test 01/19/20 07:48 Arterial Blood pH 7.274 (7.350-7.450) Arterial Blood Partial Pressure CO2 45.6 mmHg (35.0-45.0) H Arterial Blood Partial Pressure O2 73.1 mmHg (75.0-100.0) L Arterial Blood HCO3 20.7 mmol/L (22.0-26.0) L Arterial Blood Oxygen Saturation 92.7 % (95-100) L Arterial Blood Base Excess -6.0 (-2-2) L [place] Test Positive Ann-Marie Graves MD Jan 19, 2020 10:38
--- NOTE | 2020-01-19 11:21 | NUR ---
NURSE NOTES: Blood culture 2 sets from peripherally, 1 set from dialysis line, and 1 set from subclavian line collected and sent as per order. Temp 98.5 orally. Patient is getting dialyzed at bedside. HR 98, BP 109/59, O2 sat 100%. Will continue to monitor.
--- NOTE | 2020-01-19 12:23 | Internal Med Progress Note ---
Subjective Date of Service: Jan 19, 2020 Physician Name GinHarris Attending Physician Fernando Peguero MD Current Medications Medications (Trade) Dose Ordered Sig/Brett Route PRN Reason Start Time Stop Time Status Last Admin Dose Admin Acetaminophen (Tylenol) 650 mg Q4H PRN ORAL FEVER 01/01/20 07:00 01/31/20 06:59 01/19/20 08:50 Acetaminophen (Tylenol) 650 mg Q4H PRN RECTAL Temp >100.5 01/03/20 09:30 02/02/20 09:29 01/03/20 12:18 Albuterol/ Ipratropium (Combivent Respimat) 1 puff Q4H PRN INH Shortness of Breath 01/05/20 20:00 02/04/20 19:59 Allopurinol (allopurinoL) 300 mg DAILY NG 01/07/20 10:45 02/06/20 10:44 01/19/20 08:23 Chlorhexidine Gluconate (Silvia-Hex 2%) 1 applic DAILY@1999 TOPIC 01/07/20 20:00 04/06/20 19:59 01/18/20 20:38 Dextrose (Dextrose 50%) 25 ml Q30M PRN IV Hypoglycemia 01/01/20 08:45 03/31/20 08:44 Dextrose (Dextrose 50%) 50 ml Q30M PRN IV Hypoglycemia 01/01/20 08:45 03/31/20 08:44 Diltiazem HCl (Cardizem Tab) 30 mg EVERY 8 HOURS ORAL 01/18/20 15:45 02/17/20 15:44 01/19/20 05:43 Diltiazem HCl (Cardizem) 15 mg Q12H PRN IVP For High Blood Pressure 01/03/20 07:00 02/02/20 06:59 Insulin Aspart (NovoLOG) Q6HR SUBQ 01/09/20 00:00 03/31/20 11:29 01/15/20 17:57 Levothyroxine Sodium (Synthroid) 200 mcg DAILY@0630 ORAL 01/12/20 06:30 02/11/20 06:29 01/19/20 05:45 Meropenem 500 mg/ Sodium Chloride 55 ml @ 110 mls/hr Q24H IVPB 01/19/20 21:00 01/24/20 20:59 Metoclopramide HCl (Reglan) 10 mg Q8H PRN IVP high residuals 01/17/20 10:30 02/16/20 10:29 01/19/20 08:50 Micafungin Sodium 100 mg/Sodium Chloride 110 ml @ 110 mls/hr Q24H IVPB 01/15/20 11:00 01/22/20 10:59 01/18/20 11:13 Midodrine (Pro-Amatine) 10 mg THREE TIMES A DAY NG 01/16/20 13:00 04/15/20 12:59 01/19/20 08:23 Pantoprazole (Protonix) 40 mg Q12HR IV 01/05/20 21:00 02/04/20 08:59 01/19/20 08:23 Sevelamer Carbonate (Renvela) 800 mg THREE TIMES A DAY NG 01/14/20 13:00 04/13/20 12:59 01/19/20 08:22 Vancomycin HCl (Vanco pharmacy to dose) 1 ea DAILY PRN MISC Per rx protocol 01/19/20 10:15 02/18/20 10:14 Vancomycin/Sodium Chloride 275 ml @ 183.333 mls/hr ONCE IVPB 01/19/20 16:00 01/19/20 18:00 Allergies: Coded Allergies: DOXYCYCLINE (Verified Allergy, Unknown, 04/04/19) RIFAMPIN (Verified Allergy, Unknown, 04/04/19) ROS Limited/Unobtainable: Yes Subjective 84 YO F admitted with hypoxia. Now COVID 19 pneumonia. Cover for Int med-DR Peguero. ICU. Intubated and sedated Objective Last Vital Signs Date Time Temp Pulse Resp B/P (MAP) Pulse Ox O2 Delivery O2 Flow Rate FiO2 01/19/20 12:00 98.6 96 24 92/56 (68) 96 01/19/20 12:00 Mechanical Ventilator Mechanical Ventilator 01/19/20 12:00 100 Laboratory Tests Test 01/18/20 17:22 01/18/20 20:47 01/18/20 23:24 01/19/20 04:20 POC Whole Blood Glucose 106 MG/DL (74-106) Pending Pending White Blood Count 24.5 K/UL (4.8-10.8) *H Red Blood Count 3.57 M/UL (4.20-5.40) L Hemoglobin 9.8 G/DL (12.0-16.0) #L Hematocrit 29.9 % (37.0-47.0) #L Mean Corpuscular Volume 84 FL (80-99) Mean Corpuscular Hemoglobin 27.4 PG (27.0-31.0) Mean Corpuscular Hemoglobin Concent 32.8 G/DL (32.0-36.0) Red Cell Distribution Width 15.9 % (11.6-14.8) H Platelet Count 54 K/UL (150-450) L Mean Platelet Volume 8.7 FL (6.5-10.1) Neutrophils (%) (Auto) % (45.0-75.0) Lymphocytes (%) (Auto) % (20.0-45.0) Monocytes (%) (Auto) % (1.0-10.0) Eosinophils (%) (Auto) % (0.0-3.0) Basophils (%) (Auto) % (0.0-2.0) Differential Total Cells Counted 100 Neutrophils % (Manual) 82 % (45-75) H Lymphocytes % (Manual) 3 % (20-45) L Monocytes % (Manual) 2 % (1-10) Eosinophils % (Manual) 0 % (0-3) Basophils % (Manual) 0 % (0-2) Band Neutrophils 13 % (0-8) H Platelet Estimate Decreased L Platelet Morphology Normal Anisocytosis 1+ Sodium Level 140 MMOL/L (136-145) Potassium Level 4.3 MMOL/L (3.5-5.1) Chloride Level 102 MMOL/L (98-107) Carbon Dioxide Level 22 MMOL/L (21-32) Anion Gap 17 mmol/L (5-15) H Blood Urea Nitrogen 65 mg/dL (7-18) H Creatinine 4.0 MG/DL (0.55-1.30) H Estimat Glomerular Filtration Rate 10.6 mL/min (>60) Glucose Level 111 MG/DL (74-106) H Calcium Level 8.5 MG/DL (8.5-10.1) Phosphorus Level 5.9 MG/DL (2.5-4.9) H Magnesium Level 2.1 MG/DL (1.8-2.4) Total Bilirubin 0.8 MG/DL (0.2-1.0) Aspartate Amino Transf (AST/SGOT) 49 U/L (15-37) H Alanine Aminotransferase (ALT/SGPT) 23 U/L (12-78) Alkaline Phosphatase 99 U/L (46-116) C-Reactive Protein, Quantitative 31.6 mg/dL (0.00-0.90) H Pro-B-Type Natriuretic Peptide 94979 pg/mL (0-125) H Total Protein 5.8 G/DL (6.4-8.2) L Albumin 1.6 G/DL (3.4-5.0) L Globulin 4.2 g/dL Albumin/Globulin Ratio 0.4 (1.0-2.7) L Test 01/19/20 07:48 Arterial Blood pH 7.274 (7.350-7.450) Arterial Blood Partial Pressure CO2 45.6 mmHg (35.0-45.0) H Arterial Blood Partial Pressure O2 73.1 mmHg (75.0-100.0) L Arterial Blood HCO3 20.7 mmol/L (22.0-26.0) L Arterial Blood Oxygen Saturation 92.7 % (95-100) L Arterial Blood Base Excess -6.0 (-2-2) L [place] Test Positive Microbiology Date/Time Source Procedure Growth Status 01/17/20 16:00 Blood Blood Culture - Preliminary Staphylococcus Species Resulted 01/17/20 15:45 Blood Blood Culture - Preliminary Staphylococcus Species Resulted Intake and Output 01/18/20 01/19/20 19:00 07:00 Intake Total 978.916 ml 275 ml Output Total 0 ml 20 ml Balance 978.916 ml 255 ml Free Water 40 ml IV Total 488.916 ml 55 ml Tube Feeding 130 ml 180 ml Blood Product 250 ml Other 110 ml Output Urine Total 0 ml 20 ml # Bowel Movements 1 Objective PHYSICAL EXAMINATION: GENERAL: The patient is a well-developed and well-nourished female, in moderate respiratory distress. HEENT: Eyes, pupils equal and responsive to light and accommodation. Extraocular movements are intact. NECK: Supple without lymphadenopathy. CHEST: Mech vent; Decreased breath sounds at bilateral bases with crackles. Otherwise, without wheezes. CARDIOVASCULAR: Regular rhythm and rate. S1, S2 normal without murmurs, rubs, or gallops. ABDOMEN: Soft, nontender, and nondistended. Positive bowel sounds. No evidence of hepatosplenomegaly. Currently, no rebound or guarding noted. EXTREMITIES: Negative for clubbing, cyanosis, or edema. RECTAL/GENITAL: Not performed. NEUROLOGIC: Cranial nerves II through XII are grossly intact without focal deficits. Assessment/Plan Assessment/Plan ASSESSMENT: This is an 84-year-old female with: 1. COVID-19 positive. 2. Bilateral pneumonia. 3. Hypertension. 4. Atrial fibrillation. 5. Chronic obstructive pulmonary disease. 6. Coronary artery disease. 7. Congestive heart failure. 8. Diabetes type 2. 9. Hypothyroidism. 10. Hypercholesterolemia. 11. Rheumatoid arthritis. 12. Gastroesophageal reflux disease. 13. Respiratory failure 14. S/P cardiac arrest 01/05/20 15. Renal failure 16. Severe anemia TREATMENT: 1. COVID-19 positive/pneumonia. Continue decadron; S/P remdesivir 1. Pulmonary/critical care=Dr. Ann-Marie Graves. 2. Hypertension. Continue hydralazine as above. 3. Atrial fibrillation. Continue digoxin as above. 4. Chronic obstructive pulmonary disease. As above, a Pulmonary consultation has been obtained with Dr. Ann-Marie Graves. The patient is currently on albuterol nebulized q.4h. p..r.n. 5. Coronary disease/congestive heart failure. An echocardiogram is pending. A Cardiology consultation has been obtained with Dr. Gaming. 6. Diabetes type 2. NovoLog sliding scale has been instituted. 7. Hypothyroidism. Continue Synthroid as above. 8. Hypercholesterolemia. Continue atorvastatin as above. 9. Rheumatoid arthritis. 10. Gastroesophageal reflux disease. Continue Protonix as above. 11. Continue mech vent per pulmonary 12. ABX=meropenem, linezolid and micafungin 13. CODE STATUS: Full code 14. DVT prophylaxis: Heparin subcu. 15. Next hemodialysis 01/19/20 16. S/P transfusion 4 units PRBC Harris Greenfield MD Jan 19, 2020 12:23
--- NOTE | 2020-01-19 12:49 | NUR ---
NURSE NOTES: Dialysis is done. 2L output as per dialysis nurse. Temp 98.6. Will administer Micafungin now.
[2020-01-19] MEDS: Micafungin 100 MG in NS 110 ML IVPB SCH (12:51)
--- NOTE | 2020-01-19 13:54 | Diagnostic Imaging Report ---
Indication: Dyspnea Technique: One view of the chest Comparison: 01/19/2020 Findings: Endotracheal tube, right jugular temporary dialysis catheter, left subclavian central venous catheter, tracheostomy are all again demonstrated. Extensive bilateral infiltrates are unchanged. Impression: Unchanged, over 2 days, findings as above.
--- NOTE | 2020-01-19 14:27 | Surgery Progress Note ---
Surgery Progress Note Subjective Procedure Performed left subclavian central venous catheter insertion Additional Comments ill appearing may need trach no n/v Objective Last 24 Hour Vital Signs Date Time Temp Pulse Resp B/P (MAP) Pulse Ox O2 Delivery O2 Flow Rate FiO2 01/19/20 14:00 89 24 90/42 (58) 100 01/19/20 13:34 91 84/46 01/19/20 13:00 85 24 85/43 (57) 99 01/19/20 12:00 98.6 96 24 92/56 (68) 96 01/19/20 12:00 Mechanical Ventilator Mechanical Ventilator 01/19/20 12:00 85 01/19/20 12:00 100 01/19/20 11:20 96 24 90 01/19/20 11:00 97 24 100/62 (75) 96 01/19/20 10:00 102 24 129/51 (77) 97 01/19/20 09:20 100.0 01/19/20 09:00 102 24 114/54 (74) 95 01/19/20 08:00 Mechanical Ventilator Mechanical Ventilator 01/19/20 08:00 100 01/19/20 08:00 100.5 100 24 124/57 (79) 96 01/19/20 08:00 88 01/19/20 07:00 97 23 121/56 (77) 95 01/19/20 06:50 104 24 90 01/19/20 06:00 91 24 127/52 (77) 96 01/19/20 05:43 87 95/49 01/19/20 05:00 91 24 124/57 (79) 93 01/19/20 04:00 98.6 86 24 121/47 (71) 97 01/19/20 04:00 Mechanical Ventilator Mechanical Ventilator 01/19/20 04:00 100 01/19/20 04:00 90 01/19/20 03:10 86 24 90 01/19/20 03:03 91 24 48/55 (53) 98 01/19/20 02:00 97 24 113/55 (74) 98 01/19/20 01:00 84 24 103/53 (70) 98 01/19/20 00:00 Mechanical Ventilator Mechanical Ventilator 01/19/20 00:00 99.8 85 24 110/50 (70) 98 01/19/20 00:00 81 01/19/20 00:00 100 01/18/20 23:47 84 24 90 01/18/20 23:00 84 24 101/61 (74) 98 01/18/20 22:00 84 24 104/44 (64) 98 01/18/20 21:43 84 101/56 01/18/20 21:00 84 24 127/50 (75) 98 01/18/20 21:00 86 24 90 01/18/20 20:00 99.5 81 24 115/60 (78) 98 01/18/20 20:00 81 01/18/20 20:00 Mechanical Ventilator Mechanical Ventilator 01/18/20 20:00 100 01/18/20 19:00 78 24 101/44 (63) 98 01/18/20 18:00 82 24 113/52 (72) 95 01/18/20 17:00 79 24 107/49 (68) 97 01/18/20 17:00 79 24 107/49 (68) 97 01/18/20 16:45 79 24 117/54 (75) 98 01/18/20 16:30 79 24 103/51 (68) 98 01/18/20 16:30 80 24 103/51 (68) 99 01/18/20 16:15 79 24 105/54 (71) 97 01/18/20 16:00 Mechanical Ventilator Mechanical Ventilator 01/18/20 16:00 99.3 79 24 115/55 (75) 99 01/18/20 16:00 80 24 115/55 (75) 98 01/18/20 16:00 76 01/18/20 15:55 87 117/47 01/18/20 15:45 83 24 117/47 (70) 98 01/18/20 15:30 81 23 101/56 (71) 98 01/18/20 15:15 75 24 107/59 (75) 99 01/18/20 15:11 82 24 90 01/18/20 15:00 78 24 119/48 (71) 98 01/18/20 14:30 77 24 105/52 (69) 97 I&O Intake and Output 01/18/20 01/19/20 19:00 07:00 Intake Total 978.916 ml 275 ml Output Total 0 ml 20 ml Balance 978.916 ml 255 ml Free Water 40 ml IV Total 488.916 ml 55 ml Tube Feeding 130 ml 180 ml Blood Product 250 ml Other 110 ml Output Urine Total 0 ml 20 ml # Bowel Movements 1 Dressing: other Wound: other Cardiovascular: RSR Respiratory: decreased breath sounds Abdomen: soft, non-tender, present bowel sounds Extremities: no tenderness, no cyanosis Laboratory Tests Test 01/18/20 17:22 01/18/20 20:47 01/18/20 23:24 01/19/20 04:20 POC Whole Blood Glucose 106 MG/DL (74-106) Pending Pending White Blood Count 24.5 K/UL (4.8-10.8) *H Red Blood Count 3.57 M/UL (4.20-5.40) L Hemoglobin 9.8 G/DL (12.0-16.0) #L Hematocrit 29.9 % (37.0-47.0) #L Mean Corpuscular Volume 84 FL (80-99) Mean Corpuscular Hemoglobin 27.4 PG (27.0-31.0) Mean Corpuscular Hemoglobin Concent 32.8 G/DL (32.0-36.0) Red Cell Distribution Width 15.9 % (11.6-14.8) H Platelet Count 54 K/UL (150-450) L Mean Platelet Volume 8.7 FL (6.5-10.1) Neutrophils (%) (Auto) % (45.0-75.0) Lymphocytes (%) (Auto) % (20.0-45.0) Monocytes (%) (Auto) % (1.0-10.0) Eosinophils (%) (Auto) % (0.0-3.0) Basophils (%) (Auto) % (0.0-2.0) Differential Total Cells Counted 100 Neutrophils % (Manual) 82 % (45-75) H Lymphocytes % (Manual) 3 % (20-45) L Monocytes % (Manual) 2 % (1-10) Eosinophils % (Manual) 0 % (0-3) Basophils % (Manual) 0 % (0-2) Band Neutrophils 13 % (0-8) H Platelet Estimate Decreased L Platelet Morphology Normal Anisocytosis 1+ Sodium Level 140 MMOL/L (136-145) Potassium Level 4.3 MMOL/L (3.5-5.1) Chloride Level 102 MMOL/L (98-107) Carbon Dioxide Level 22 MMOL/L (21-32) Anion Gap 17 mmol/L (5-15) H Blood Urea Nitrogen 65 mg/dL (7-18) H Creatinine 4.0 MG/DL (0.55-1.30) H Estimat Glomerular Filtration Rate 10.6 mL/min (>60) Glucose Level 111 MG/DL (74-106) H Calcium Level 8.5 MG/DL (8.5-10.1) Phosphorus Level 5.9 MG/DL (2.5-4.9) H Magnesium Level 2.1 MG/DL (1.8-2.4) Total Bilirubin 0.8 MG/DL (0.2-1.0) Aspartate Amino Transf (AST/SGOT) 49 U/L (15-37) H Alanine Aminotransferase (ALT/SGPT) 23 U/L (12-78) Alkaline Phosphatase 99 U/L (46-116) C-Reactive Protein, Quantitative 31.6 mg/dL (0.00-0.90) H Pro-B-Type Natriuretic Peptide 35393 pg/mL (0-125) H Total Protein 5.8 G/DL (6.4-8.2) L Albumin 1.6 G/DL (3.4-5.0) L Globulin 4.2 g/dL Albumin/Globulin Ratio 0.4 (1.0-2.7) L Test 01/19/20 07:48 Arterial Blood pH 7.274 (7.350-7.450) Arterial Blood Partial Pressure CO2 45.6 mmHg (35.0-45.0) H Arterial Blood Partial Pressure O2 73.1 mmHg (75.0-100.0) L Arterial Blood HCO3 20.7 mmol/L (22.0-26.0) L Arterial Blood Oxygen Saturation 92.7 % (95-100) L Arterial Blood Base Excess -6.0 (-2-2) L Chester Test Positive Plan Problems: (1) Acute on chronic systolic (congestive) heart failure (2) CO2 retention (3) BORIS (acute kidney injury) (4) Shock liver Assessment & Plan: Hypotensive septic acute elevation in LFTs AST ALT thousands alk phos elevated. Likely shock from hypotension and acute episode. Labs trending down. IV fluid hydration. No acute intervention. Hold on imaging. Line reviewed. No bleeding noted. All 3 ports functional. Chest x-ray reviewed. Drop in hemoglobin unlikely related to line. Will monitor. Trend labs. Transfuse PRN. And are improvement in position of previously malpositioned endotracheal tube, tip now projecting 1-2 cm above the garrett. Interim placement of an orogastric tube, tip of which projects beyond the edge of the image, presumably well within the stomach. Interim placement of a left subclavian central venous catheter, tip of which projects at the level of the innominate venous confluence. No pneumothorax. Bilateral infiltrates are again demonstrated, unchanged. Impression: Improved and now satisfactory position of endotracheal tube Interim left subclavian central venous catheter placement, no radiographically evident complication Interim orogastric intubation, apparently satisfactory Unchanged bilateral infiltrates (5) Atrial fibrillation (6) Diabetes mellitus (7) CHF (congestive heart failure) (8) Hypothyroidism Assessment & Plan: DAILY ESTIMATED NEEDS: Needs based on Critical care 54kg abw 22-30 kcals/kg 4477-9732 total kcals 1.25-2 g protein/kg 68-108 g total protein 20-25 mL/kg 2430-7078 total fluid mLs NUTRITION DIAGNOSIS: Swallowing difficulty r/t resp status as evidenced by pt adm w/ covid 19 ++, on bipap, now s/p code blue, intubated, on OGT feeds. CURRENT TF:VITAL AF 1.2 @ 55ml/hr x22 hrs ENTERAL NUTRITION RECOMMENDATIONS: VITAL AF 1.2 @ 55ml/hr x 22 hrs to provide 1210, 1452kcal, 91g prot, 981ml free water * Maintain current TF * Hold 1 hr before and after Synthroid * HOB over 30 degrees/ water flush per MD If renal fxn cont to worsen (creat 3.2 w/ phos 6.1 on 01/12) -> rec TF change to Nepro @ goal rate of 35ml/hr x 22 hrs to provide 770ml, 13 86kcal, 62g prot (1.15g/kg), 560ml free water ADDITIONAL RECOMMENDATIONS: 1) Maintain calibrated bed scale wts daily 2) Monitor renal fxn and lytes, need for renal TF (creat worsening 3.2, phos 6.1) 3) Skin integrity: TF @ goal provides 100% RDI Odell BID 4) Monitor BGs, need for additional hypoglycemics (9) Chronic respiratory failure Assessment & Plan: Intubated intensive care unit weaning vent. ET tube in place. Chest x-ray reviewed. (10) History of hypertension (11) 2019 novel coronavirus detected Assessment & Plan: COVID positive as per ID and pulmonology appreciate input and care. Continue vent support wean as tolerated. (12) Acute respiratory failure due to COVID-19 Satinder Olivera Jan 19, 2020 14:27
--- NOTE | 2020-01-19 14:32 | NUR ---
NURSE NOTES: Cardizem held since SBP <105 as per parameter.
--- NOTE | 2020-01-19 14:56 | NUR ---
NURSE NOTES: Called and left a note to Dr Gaming regarding low BP 76/41. Awaiting call back for new orders.
[2020-01-19] MEDS: Norepinephrine 4mg/NS Premix 250 ML IV SCH (15:45)
--- NOTE | 2020-01-19 15:45 | NUR ---
NURSE NOTES: Started Levophed at 2mcg/min for 71/42 as per order. Will titrate up the dose to keep SBP >90 as per order.
[2020-01-19] MEDS ORDERED: Vancomycin 1.25gm/NS Premix q24h IVPB SCH (16:00)
--- NOTE | 2020-01-19 16:05 | NUR ---
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 100.5 HR 85 RR 24 B/P 84/46 AC 24 TV 600 FIO2 100% PEEP 8 PH 7.27 PCO2 45.6 PO2 73.1 HCO3 20.7 O2 SAT 92.7 WBC 24.5 BUN 65 CR 4.0 BNP 11483 IS: MEROPENEM IV VANCO IV MICAFUNGIN IV REGLAN IV PROTONIX IV ICU STATUS
--- NOTE | 2020-01-19 17:30 | NUR ---
NURSE NOTES: Titrated down Levophed to 2mcg/min for BP 135/75. Will closely monitor patient.
--- NOTE | 2020-01-19 17:56 | NUR ---
NURSE NOTES: Cleaned patient for another large amount of loose BM. Turned and repositioned patient. Small bleeding from lips and mouth noted. Will continue to monitor. Dressing on left subclavian TLC changed.
--- NOTE | 2020-01-19 19:30 | NUR ---
NURSE NOTES: Received pt obtunded,orally intubated on ac mode, on Levophed drip at 1mcg/min infusing to left SVC, site with current drsg dry and intact, Afib on the monitor on the 100s, afebrile. Pt with pressure sore pls see pictures with drsg dry and intact, On p200 mattress. Turned to sides for comfort and to avoid further developement of skin breakdown .Extremities were swollen and both arms are wheeping with fluids. Elevated arms with pillows. Will continue to monitor.
--- NOTE | 2020-01-19 19:31 | NUR ---
RESPIRATORY NOTE: Received pt on AC 24, 600VT, 90%, PEEP +8. Pt intubated w/ ETT 7.0 @ 25cm lipline, secured by anchorfast. Pt flat effect. B/S luis. rhonchi, sxn small to moderate amounts of thick, tirado-brown secretions w/ blood clots. Pt noted to have old wound/dried blood around the area of the mouth/lips, bedside RN aware. Vent plugged into red outlet, ambubag at bedside. Pt in no apparent distress at this time. Will continue to monitor pt.
--- NOTE | 2020-01-19 19:48 | Cardiology Progress Note ---
Assessment/Plan Assessment/Plan paf now persistent afib pneumonia pulm htn 90's copd dm acute covid 19 infection diastolic failure cardiopulm arrest (pt was found off bipap) respiratory acidosis ARF abn lft probable shock liver imporved abn trop likey realted to cpr anoxic encephalopathy personally reviewed tele:afib on low dose cardizem vian ngt supportive care at this time not need pressror but diana be observed for need specailly durign dialysis vent support heparin for dvt ppx in the settign of unstable renal function post arf remains critically ill and at risk of dying diarrhea i was called about hypotension djurign dailysis levophed orderded bp is nwo better advanced directives noted poa avaiaLBE anemic d/w rn Subjective ROS Limited/Unobtainable: Yes Subjective remain on the vent not responsive per rn Objective Last 24 Hour Vital Signs Date Time Temp Pulse Resp B/P (MAP) Pulse Ox O2 Delivery O2 Flow Rate FiO2 01/19/20 19:27 104 24 90 01/19/20 18:00 91 24 101/65 (77) 98 01/19/20 18:00 99.3 88 24 107/56 (73) 99 01/19/20 17:45 96 24 135/75 (95) 98 01/19/20 17:30 98.9 84 24 111/54 (73) 98 01/19/20 17:00 88 24 107/56 (73) 99 01/19/20 16:45 87 24 111/56 (74) 100 01/19/20 16:30 88 24 109/71 (84) 99 01/19/20 16:15 86 24 122/57 (78) 100 01/19/20 16:00 100 01/19/20 16:00 Mechanical Ventilator Mechanical Ventilator 01/19/20 16:00 88 24 92/35 (54) 98 01/19/20 15:45 89 24 74/45 (55) 98 01/19/20 15:45 74/45 01/19/20 15:23 87 01/19/20 15:20 87 24 90 01/19/20 15:00 89 24 83/53 (63) 98 01/19/20 14:00 89 24 90/42 (58) 100 01/19/20 13:34 91 84/46 01/19/20 13:00 85 24 85/43 (57) 99 01/19/20 12:00 98.6 96 24 92/56 (68) 96 01/19/20 12:00 Mechanical Ventilator Mechanical Ventilator 01/19/20 12:00 85 01/19/20 12:00 100 01/19/20 11:20 96 24 90 01/19/20 11:00 97 24 100/62 (75) 96 01/19/20 10:00 102 24 129/51 (77) 97 01/19/20 09:20 100.0 01/19/20 09:00 102 24 114/54 (74) 95 01/19/20 08:00 Mechanical Ventilator Mechanical Ventilator 01/19/20 08:00 100 01/19/20 08:00 100.5 100 24 124/57 (79) 96 01/19/20 08:00 88 01/19/20 07:00 97 23 121/56 (77) 95 01/19/20 06:50 104 24 90 01/19/20 06:00 91 24 127/52 (77) 96 01/19/20 05:43 87 95/49 01/19/20 05:00 91 24 124/57 (79) 93 01/19/20 04:00 98.6 86 24 121/47 (71) 97 01/19/20 04:00 Mechanical Ventilator Mechanical Ventilator 01/19/20 04:00 100 01/19/20 04:00 90 01/19/20 03:10 86 24 90 01/19/20 03:03 91 24 48/55 (53) 98 01/19/20 02:00 97 24 113/55 (74) 98 01/19/20 01:00 84 24 103/53 (70) 98 01/19/20 00:00 Mechanical Ventilator Mechanical Ventilator 01/19/20 00:00 99.8 85 24 110/50 (70) 98 01/19/20 00:00 81 01/19/20 00:00 100 01/18/20 23:47 84 24 90 01/18/20 23:00 84 24 101/61 (74) 98 01/18/20 22:00 84 24 104/44 (64) 98 01/18/20 21:43 84 101/56 01/18/20 21:00 84 24 127/50 (75) 98 01/18/20 21:00 86 24 90 01/18/20 20:00 99.5 81 24 115/60 (78) 98 01/18/20 20:00 81 01/18/20 20:00 Mechanical Ventilator Mechanical Ventilator 01/18/20 20:00 100 General Appearance: on vent, patient on isolation, isolation precautions Intake and Output 01/18/20 01/19/20 19:00 07:00 Intake Total 978.916 ml 275 ml Output Total 0 ml 20 ml Balance 978.916 ml 255 ml Free Water 40 ml IV Total 488.916 ml 55 ml Tube Feeding 130 ml 180 ml Blood Product 250 ml Other 110 ml Output Urine Total 0 ml 20 ml # Bowel Movements 1 Laboratory Tests Test 01/18/20 20:47 01/18/20 23:24 01/19/20 04:20 01/19/20 07:48 POC Whole Blood Glucose Pending Pending White Blood Count 24.5 K/UL (4.8-10.8) *H Red Blood Count 3.57 M/UL (4.20-5.40) L Hemoglobin 9.8 G/DL (12.0-16.0) #L Hematocrit 29.9 % (37.0-47.0) #L Mean Corpuscular Volume 84 FL (80-99) Mean Corpuscular Hemoglobin 27.4 PG (27.0-31.0) Mean Corpuscular Hemoglobin Concent 32.8 G/DL (32.0-36.0) Red Cell Distribution Width 15.9 % (11.6-14.8) H Platelet Count 54 K/UL (150-450) L Mean Platelet Volume 8.7 FL (6.5-10.1) Neutrophils (%) (Auto) % (45.0-75.0) Lymphocytes (%) (Auto) % (20.0-45.0) Monocytes (%) (Auto) % (1.0-10.0) Eosinophils (%) (Auto) % (0.0-3.0) Basophils (%) (Auto) % (0.0-2.0) Differential Total Cells Counted 100 Neutrophils % (Manual) 82 % (45-75) H Lymphocytes % (Manual) 3 % (20-45) L Monocytes % (Manual) 2 % (1-10) Eosinophils % (Manual) 0 % (0-3) Basophils % (Manual) 0 % (0-2) Band Neutrophils 13 % (0-8) H Platelet Estimate Decreased L Platelet Morphology Normal Anisocytosis 1+ Sodium Level 140 MMOL/L (136-145) Potassium Level 4.3 MMOL/L (3.5-5.1) Chloride Level 102 MMOL/L (98-107) Carbon Dioxide Level 22 MMOL/L (21-32) Anion Gap 17 mmol/L (5-15) H Blood Urea Nitrogen 65 mg/dL (7-18) H Creatinine 4.0 MG/DL (0.55-1.30) H Estimat Glomerular Filtration Rate 10.6 mL/min (>60) Glucose Level 111 MG/DL (74-106) H Calcium Level 8.5 MG/DL (8.5-10.1) Phosphorus Level 5.9 MG/DL (2.5-4.9) H Magnesium Level 2.1 MG/DL (1.8-2.4) Total Bilirubin 0.8 MG/DL (0.2-1.0) Aspartate Amino Transf (AST/SGOT) 49 U/L (15-37) H Alanine Aminotransferase (ALT/SGPT) 23 U/L (12-78) Alkaline Phosphatase 99 U/L (46-116) C-Reactive Protein, Quantitative 31.6 mg/dL (0.00-0.90) H Pro-B-Type Natriuretic Peptide 97501 pg/mL (0-125) H Total Protein 5.8 G/DL (6.4-8.2) L Albumin 1.6 G/DL (3.4-5.0) L Globulin 4.2 g/dL Albumin/Globulin Ratio 0.4 (1.0-2.7) L Arterial Blood pH 7.274 (7.350-7.450) Arterial Blood Partial Pressure CO2 45.6 mmHg (35.0-45.0) H Arterial Blood Partial Pressure O2 73.1 mmHg (75.0-100.0) L Arterial Blood HCO3 20.7 mmol/L (22.0-26.0) L Arterial Blood Oxygen Saturation 92.7 % (95-100) L Arterial Blood Base Excess -6.0 (-2-2) L Chester Test Positive Microbiology Date/Time Source Procedure Growth Status 01/17/20 16:00 Blood Blood Culture - Preliminary Staphylococcus Species Resulted 01/17/20 15:45 Blood Blood Culture - Preliminary Staphylococcus Species Resulted Objective pt with covid exam deferred remain on the vent no communicative per rn sig secretion bloody Left lip skin tear used stristrip, CDI. Inside of lip line, inserted gauze to stop bleeding. [facility], Oral care provided. Turned and repositioned SpO2 100% Safety measures observed and no acute distress noted. Will continue to monitor Reginaldo Gaming MD Jan 19, 2020 19:48
[2020-01-19] MEDS: Dyna-Hex 2% Top Sol 2oz TOPIC SCH (20:10)
--- NOTE | 2020-01-19 20:43 | NUR ---
NURSE NOTES: received pt awake does not follows command orally intubated -vent 02 sat 94 %NO ACUTE RESP DISTRESS REPOSITION AND SUCTION TOLERATING TUBE FEEDING DR MORFIN IN SEEN PT
--- NOTE | 2020-01-19 21:00 | NUR ---
NURSE NOTES: Turned off LEvophed drip. SBP >100s. Will continue to monitor.
--- NOTE | 2020-01-19 23:00 | NUR ---
NURSE NOTES: Suctioned tn tk beige secretions lg in amt. Oral care done.
[2020-01-20] VITALS (24 sets, daily range): BP systolic 95–165; BP diastolic 47–77
--- NOTE | 2020-01-20 01:00 | NUR ---
NURSE NOTES: BP 122/64 Afib 106/min. Afebrile.
--- NOTE | 2020-01-20 03:00 | NUR ---
NURSE NOTES: Neuro unchanged . Suctioned lg amt of tk beige secretions
--- NOTE | 2020-01-20 04:45 | NUR ---
NURSE NOTES: Had x1 soft brownish bowel movement. Complete bath was given.
[2020-01-20 04:59] LABS: HEMATOCRIT 31.6 % (37.0-47.0); HEMOGLOBIN 10.4 G/DL (12.0-16.0); MEAN CORPUSCULAR VOLUME 84 FL (80-99); PLATELET COUNT 35 K/UL (150-450); RED BLOOD COUNT 3.78 M/UL (4.20-5.40); RED CELL DISTRIBUTION WIDTH 16.2 % (11.6-14.8)
[2020-01-20 05:26] LABS: WHITE BLOOD COUNT 26.2 K/UL (4.8-10.8)
[2020-01-20 05:37] LABS: ALBUMIN 1.7 G/DL (3.4-5.0); ALBUMIN/GLOBULIN RATIO 0.4 (1.0-2.7); BILIRUBIN,TOTAL 1.1 MG/DL (0.2-1.0); CALCIUM 8.6 MG/DL (8.5-10.1); CREATININE 3.3 MG/DL (0.55-1.30); PHOSPHORUS 5.2 MG/DL (2.5-4.9)
[2020-01-20] MEDS: NovoLOG Insulin Flexpen SUBQ SCH ×4 (06:00→18:00)
--- NOTE | 2020-01-20 06:00 | NUR ---
NURSE NOTES: Bs 113 no insulin coverage
[2020-01-20 06:03] LABS: BILIRUBIN,DIRECT 0.5 MG/DL (0.0-0.3)
[2020-01-20] MEDS: dilTIAZem HCl 30mg tab ORAL SCH ×2 (06:12→13:12)
--- NOTE | 2020-01-20 06:32 | NUR ---
CASE MANAGEMENT: REVIEW SI: COVID-19 . PNA . A-FIB . INTUBATED . RENAL FAILURE RIGHT IJV PARRIS 01/13 T 99.6 HR 118 RR 24 BP 121/68 SAT 94% MECH VENT FIO2 100 WBC 26.2 H/H 10.4/31.6 BUN 47 CR 3.3 REPEAT COVID PENDING IS: VANCOMYCIN IV X1 MEROPENEM IV Q24HR LEVOPHED GTT MIDODRINE NG TID MICAFUNGIN IV Q24HR PROTONIX IV Q12HR HD PER RENAL ICU STATUS DCP: PATIENT IS FROM [facility]
--- NOTE | 2020-01-20 07:30 | NUR ---
NURSE NOTES: Pt received from ALEX Thornton. Pt is comatose, does not respond to pain stimuli, unable to obey commands or open eyes. bilat pupils equal and round 3mm with sluiggish light rxn. Pt noted in Afib to hospital monitor. radial and dorsalis pedis pulses 2+. pitting edema noted to BUE and BLE. BUE noted extensively oozing serous fluid - wrapped in chivo pads. Pt is mechanically ventilated with a 7.0 ETT noted 25 cm at the lip line with following settings: AC 24 TV 600 FiO2 100% Peep 8. Lung lobes noted diminished upon auscultation. Abd is round, soft, with active bowel sounds to all quadrants. Pt has a left nares NGT clamped at this time for recent Synthroid administration. Will resume shortly. F/C noted draining small amount of dark jayson urine. Skin alterations noted. Pt on FELICITY mattress. Bleeding precaution implemented - no visible bleeding noted at this time. Ecchymosis noted to BUE. Pt has a Left subclavian TLC with dry and intact dressing running NS TKO at 5 cc/hr and a RIJ Patrick catheter for HD also noted with dry and intact dressing. Bed in lowest position, alarm on, side rails up x 2. Call light within reach. Will continue to monitor. Addendum: 01/20/20 at 1242 by Isha Ellis RN Amendment: right pupil measures 4 mm and left 3mm - both with sluggish rxn to light. right foot drop noted. Addendum: 01/20/20 at 1318 by Isha Ellis RN Amendment: please disregard this note
--- NOTE | 2020-01-20 07:49 | NUR ---
NURSE HAND-OFF REPORT: Latest Vital Signs: Temperature 99.4 , Pulse 117 , B/P 165 /59 , Respiratory Rate 23 , O2 SAT 95 , Mechanical Ventilator, O2 Flow Rate 10.0 . Vital Sign Comment: EKG Rhythm: Atrial Fibrillation Rhythm change?: N Notified?: Eliezer Gaming MD Response: No New Orders Received Latest Shaw Fall Score: 50 Fall Risk: High Risk Safety Measures: Call light Within Reach, Bed Alarm Zone 3, Side Rails Side Rails x3, Bed position Low and Locked. Fall Precautions: Yellow Socks Door Sign Patient Fall Education Report given to hyacinth gonzalez using sbar.
--- NOTE | 2020-01-20 07:50 | NUR ---
NURSE NOTES: Pt received from ALEX Thornton. Pt is comatose, does not respond to pain stimuli, unable to obey commands or open eyes. right pupil measures 4 mm and left 3mm - both with sluggish rxn to light. right foot drop noted. 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 radial and dorsalis pedis pulses 2+. pitting edema noted to BUE and BLE. BUE noted extensively oozing serous fluid - wrapped in chivo pads. Pt is mechanically ventilated with a 7.0 ETT noted 25 cm at the lip line with following settings: AC 24 TV 600 FiO2 100% Peep 8. Lung lobes noted diminished upon auscultation. Abd is round, soft, with active bowel sounds to all quadrants. Pt has a left naris NGT clamped at this time for recent Synthroid administration. Will resume shortly. F/C noted draining small amount of dark jayson urine. Skin alterations noted. Pt on FELICITY mattress. Bleeding precaution implemented - no visible bleeding noted at this time. Ecchymosis noted to BUE. Pt has a Left subclavian TLC with dry and intact dressing running NS TKO at 5 cc/hr and a RIJ Patrick catheter for HD also noted with dry and intact dressing. Bed in lowest position, alarm on, side rails up x 2. Call light within reach. Will continue to monitor.
[2020-01-20] MEDS ORDERED: Vancomycin 1.25gm/NS Premix q24h IVPB SCH (08:00)
--- NOTE | 2020-01-20 08:00 | NUR ---
NURSE NOTES: Oral care provided - pt repositioned and cleaned. Axillary temp noted 100 F. Ice packs applied to axilla.
[2020-01-20] MEDS: Pantoprazole Inj IV SCH ×2 (08:16→20:45)
[2020-01-20] MEDS: Renvela 800mg Pkt NG SCH ×3 (08:16→17:51)
[2020-01-20] MEDS: Midodrine 10mg tab NG SCH ×3 (08:17→17:51)
--- NOTE | 2020-01-20 09:30 | NUR ---
NURSE NOTES: Dr Mandel assessing pt at bedside - lab results for today reviewed- PLT count noted. No new orders received for PLT transfusion at this time. Will communicate with pharmacy regarding possible ABX-related thrombocytopenia per Dr Mandel's request - will relay info to ID and Dr Graves shortly.
--- NOTE | 2020-01-20 10:00 | NUR ---
NURSE NOTES: Pt repositioned. no acute distress noted.
--- NOTE | 2020-01-20 10:07 | NUR ---
RD ASSESSMENT & RECOMMENDATIONS SEE CARE ACTIVITY FOR COMPLETE ASSESSMENT DAILY ESTIMATED NEEDS: Needs based on Critical care, HD 54kg abw 22-30 kcals/kg 9168-3107 total kcals 1.25-2 g protein/kg 68-108 g total protein 20-25 mL/kg 1367-6645 total fluid mLs NUTRITION DIAGNOSIS: Swallowing difficulty r/t resp status as evidenced by pt adm w/ covid 19 ++, on bipap, now s/p code blue, intubated, on OGT feeds. CURRENT TF: Nepro @40ml/hr x22 hrs ENTERAL NUTRITION RECOMMENDATIONS: Nepro @40ml/hr x22 hrs to provide 880ml, 1584 kcal, 71g pro, 640ml free H2O * Initiate TF as tolerated w/ hemodynamic stability. Advance slowly as tolerated to goal. * Hold 1 hr before and after Synthroid * HOB over 30 degrees/ water flush per MD * TF at goal meets 100% est needs ADDITIONAL RECOMMENDATIONS: 1) Maintain calibrated bed scale wts daily 2) Monitor renal fxn and lytes, need for renal TF- now on Nepro (creat worsening 3.3, phos 5.2)-> now on HD, TF changed to Nepro 3) Skin integrity: Add nephrovite 1 tab qd, DONA BID 4) Monitor BGs, need for additional hypoglycemics .
--- NOTE | 2020-01-20 10:11 | NUR ---
NURSE NOTES: Left message with Jorge from [facility] nephrology - HD session scheduled for tomorrow.
--- NOTE | 2020-01-20 10:17 | Nephrology Progress Note ---
Assessment/Plan Problem List: (1) BORIS (acute kidney injury) (2) 2019 novel coronavirus detected (3) Hypothyroidism (4) Diabetes mellitus (5) Atrial fibrillation (6) Shock liver Assessment 85-year-old female admitted 5 days ago, at the time serum creatinine was 0.9 and today the serum creatinine is 1.4, most likely BORIS Hypernatremia secondary to free water deficit Prerenal azotemia COVID-19 virus detected Acute on chronic systolic congestive heart failure Atrial fibrillation Diabetes mellitus Hypothyroidism Hypertension Acute on chronic respiratory failure Plan January 19: Patient was dialyzed yesterday. Patient states platelet count is lowering. Medications and or ongoing sepsis can be an etiology for that. Discussed with RN. Pharmacy to be contacted regarding any of the current medications that can be responsible for thrombocytopenia. Meanwhile we will arrange for dialysis tomorrow. Avoid using heparin or anticoagulants as pos sible. January 18: Patient transfused yesterday. Due for dialysis today. Continue current treatment plan. Full code, remains intubated. January 17: Hemoglobin is low today. Due for 2 units of packed RBCs transfusion. Serum creatinine rising. Hemodialysis tomorrow. Continue per consultants. Remains full code and on mechanical ventilation. January 16: Dialyzed yesterday. Ultrafiltration done 2 L. Labs reviewed. Remains intubated on ventilator. Full code. Continue to monitor renal parameters and arrange for dialysis as needed. January 15: Due for dialysis today. Patient hypotensive. Will start pressors and midodrine if needed. Will aim to dialyze and remove excess fluid as possible. Patient full code. Prognosis poor. January 14: Dialyzed yesterday. 2000 mL fluid ultrafiltrated during dialysis. Will dialyze again tomorrow. Continue per consultants. Labs reviewed. Medica tion list reviewed. Continue as is. January 13: Creatinine rising. Other labs and medication reviewed. Patient intubated. Patient full code. Consent for dialysis catheter is obtained. Will order dialysis after insertion of the non-tunneled dialysis catheter. Discussed with ALEX Hernandez. January 12: Serum creatinine rising. Patient was transfused. Remains full code. Remains intubated on ventilator. Will get consent for placement of non- tunneled dialysis catheter. Further worsening renal parameters may lead to the need for dialysis treatment. Per orders. January 11: Labs reviewed. Serum creatinine higher. Hemoglobin lower. Transfusion 2 units packed RBCs today. Continue to monitor renal parameters. Avoid nephrotoxic's. January 10: Labs reviewed. Serum creatinine 2.5. Liver enzymes are lowering. Remains full code. Remains intubated. Electrolyte abnormalities addressed. Continue per consultants. January 09: Lab reviewed. Serum creatinine lower at 2.6. Liver enzymes are lowering. Patient remains full code and remains intubated. Continue current management. Continue to follow renal parameters. Continue per consultants. Start Cardizem 30 mg every 8 hours via NG tube for elevated blood pressure January 08: Lab reviewed. Serum creatinine 2.8. LFTs improving. Remains intubated. Remains full code. Continue per consultants. Continue to monitor renal parameters. Avoid nephrotoxic's as possible. January 07: Labs reviewed. Serum creatinine robby to 2.9. Liver enzymes are improving. Patient off pressors. Patient full code. Patient intubated on ventilator. Continue to monitor renal parameters. IV fluid changed to normal saline. Continue per consultants. Anemia work-up initiated, iron panel B12 and folate level ordered. January 06: Labs reviewed. Serum creatinine up to 2.6. Medications reviewed. Continue to follow renal parameters and electrolytes. Continue to monitor liver enzymes. Allopurinol for high uric acid given. Discussed with RN. January 05: Blood pressure stable off pressors. Continue IV fluids. Monitor renal parameters. Monitor liver function tests. Hold oral Synthroid at this time. Continue treatment for sepsis and COVID-19 infection IV fluids Keep the blood pressure over 100 systolic Monitor renal parameters and electrolytes Monitor liver function tests Avoid nephrotoxic's as possible Urine studies Digoxin level Thyroid function tests Per orders Subjective ROS Limited/Unobtainable: Yes Objective Objective Last 24 Hour Vital Signs Date Time Temp Pulse Resp B/P (MAP) Pulse Ox O2 Delivery O2 Flow Rate FiO2 01/20/20 07:30 112 24 100 01/20/20 07:00 117 23 165/59 (94) 95 01/20/20 06:12 110 158/64 01/20/20 06:00 110 24 158/68 (98) 01/20/20 05:00 113 24 138/77 (97) 95 01/20/20 04:00 103 01/20/20 04:00 Mechanical Ventilator Mechanical Ventilator 01/20/20 04:00 99.4 115 24 136/56 (82) 96 01/20/20 04:00 100 01/20/20 03:22 118 24 100 01/20/20 03:00 112 24 139/59 (85) 93 01/20/20 02:00 107 24 132/60 (84) 94 01/20/20 01:00 106 24 122/64 (83) 93 01/20/20 00:00 Mechanical Ventilator Mechanical Ventilator 01/20/20 00:00 99.6 102 24 122/68 (86) 94 01/20/20 00:00 103 01/20/20 00:00 100 01/19/20 23:13 102 24 90 01/19/20 23:00 100 24 110/66 (81) 94 01/19/20 22:00 110 125/59 01/19/20 22:00 101 24 117/60 (79) 94 01/19/20 21:00 98 24 121/60 (80) 94 01/19/20 20:00 98.8 96 24 119/56 (77) 94 01/19/20 20:00 100 01/19/20 20:00 100 01/19/20 20:00 Mechanical Ventilator Mechanical Ventilator 01/19/20 19:27 104 24 90 01/19/20 18:00 91 24 101/65 (77) 98 01/19/20 18:00 99.3 88 24 107/56 (73) 99 01/19/20 17:45 96 24 135/75 (95) 98 01/19/20 17:30 98.9 84 24 111/54 (73) 98 01/19/20 17:00 88 24 107/56 (73) 99 01/19/20 16:45 87 24 111/56 (74) 100 01/19/20 16:30 88 24 109/71 (84) 99 01/19/20 16:15 86 24 122/57 (78) 100 01/19/20 16:00 100 01/19/20 16:00 Mechanical Ventilator Mechanical Ventilator 01/19/20 16:00 88 24 92/35 (54) 98 01/19/20 15:45 89 24 74/45 (55) 98 01/19/20 15:45 74/45 01/19/20 15:23 87 01/19/20 15:20 87 24 90 01/19/20 15:00 89 24 83/53 (63) 98 01/19/20 14:00 89 24 90/42 (58) 100 01/19/20 13:34 91 84/46 01/19/20 13:00 85 24 85/43 (57) 99 01/19/20 12:00 98.6 96 24 92/56 (68) 96 01/19/20 12:00 Mechanical Ventilator Mechanical Ventilator 01/19/20 12:00 85 01/19/20 12:00 100 01/19/20 11:20 96 24 90 01/19/20 11:00 97 24 100/62 (75) 96 Intake and Output 01/19/20 01/20/20 18:59 06:59 Intake Total 554.375 ml 98.75 ml Output Total 2000 ml 0 ml Balance -1445.625 ml 98.75 ml IV Total 414.375 ml 58.75 ml Tube Feeding 60 ml 40 ml Other 80 ml Output Urine Total 0 ml 0 ml Hemodialysis UF 2000 ml # Bowel Movements 3 Laboratory Tests 01/20/20 03:25: White Blood Count 26.2*H, Red Blood Count 3.78L, Hemoglobin 10.4L, Hematocrit 31.6L, Mean Corpuscular Volume 84, Mean Corpuscular Hemoglobin 27.5, Mean Corpuscular Hemoglobin Concent 32.9, Red Cell Distribution Width 16.2H, Platelet Count 35L, Mean Platelet Volume 10.7H, Neutrophils (%) (Auto) , Lymphocytes (%) (Auto) , Monocytes (%) (Auto) , Eosinophils (%) (Auto) , Basophils (%) (Auto) , Differential Total Cells Counted 100, Neutrophils % (Manual) 74, Lymphocytes % (Manual) 1L, Monocytes % (Manual) 1, Eosinophils % (Manual) 1, Basophils % (Manual) 1, Myelocytes % 1H, Band Neutrophils 21H, Platelet Estimate DecreasedL, Platelet Morphology Normal, Anisocytosis 1+, Microcytosis 1+, Sodium Level 139, Potassium Level 4.0, Chloride Level 102, Carbon Dioxide Level 23, Anion Gap 14, Blood Urea Nitrogen 47H, Creatinine 3.3H, Estimat Glomerular Filtration Rate 13.3, Glucose Level 93, Calcium Level 8.6, Phosphorus Level 5.2H, Magnesium Level 2.0, Total Bilirubin 1.1H, Direct Bilirubin 0.5H, Aspartate Amino Transf (AST/SGOT) 63H, Alanine Aminotransferase (ALT/SGPT) 31, Alkaline Phosphatase 117H, C-Reactive Protein, Quantitative 34.1H, Pro-B-Type Natriuretic Peptide 28 408H, Total Protein 5.6L, Albumin 1.7L, Globulin 3.9, Albumin/Globulin Ratio 0.4L, Random Vancomycin Level 15.1 01/20/20 08:26: Arterial Blood pH 7.264L, Arterial Blood Partial Pressure CO2 48.0H, Arterial Blood Partial Pressure O2 69.7L, Arterial Blood HCO3 21.3L, Arterial Blood Oxygen Saturation 90.9L, Arterial Blood Base Excess -5.7L, Chester Test Positive Height (Feet): 5 Height (Inches): 2.00 Weight (Pounds): 155 General Appearance: no apparent distress EENT: other - Intubated on ventilator Cardiovascular: tachycardia Respiratory/Chest: decreased breath sounds Abdomen: distended Naun Mandel MD Jan 20, 2020 10:17
--- NOTE | 2020-01-20 11:22 | NUR ---
NURSE NOTES: Dr Graves assessing pt at bedside. Lab results for today discussed - PLT count noted. Per pharmacy, mycamine and vanco have moderate thrombocytopenic effect - relayed this info to Dr Graves - OK to administer mycamine at this time until discussed further with ID.
[2020-01-20] MEDS: Micafungin 100 MG in NS 110 ML IVPB SCH (11:27)
--- NOTE | 2020-01-20 11:27 | Pulmonolgy Critical Care Note ---
Critical Care - Asmt/Plan Problems: (1) Multiorgan failure (2) Acute respiratory failure due to COVID-19 (3) BORIS (acute kidney injury) (4) Thrombocytopenia (5) Acute on chronic systolic (congestive) heart failure (6) Atrial fibrillation (7) Diabetes mellitus (8) CHF (congestive heart failure) (9) Hypothyroidism (10) Chronic respiratory failure (11) History of hypertension Respiratory: monitor respiratory rate, adjust FIO2, CXR Cardiac: continue to monitor HR/BP Renal: F/U I&O, keep IV fluid, check electrolytes Gastrointestinal: continue feedings/current rate Hematologic: transfuse if hgb<8.5 Neurologic: PRN Ativan, keep patient comfortable Affect: PRN ativan Prophylaxis: Protonix, Heparin Time Spent (Minutes): 40 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, 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, 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, ID, GI Discussed with: nurses, consultants, social work case managermultimedia manager - Objective Last 24 Hour Vital Signs Date Time Temp Pulse Resp B/P (MAP) Pulse Ox O2 Delivery O2 Flow Rate FiO2 01/20/20 11:00 98 24 95/47 (63) 94 01/20/20 10:00 103 24 101/47 (65) 94 01/20/20 09:00 113 23 104/50 (68) 93 01/20/20 08:00 Mechanical Ventilator Mechanical Ventilator 01/20/20 08:00 100.0 115 23 146/60 (88) 95 01/20/20 08:00 117 01/20/20 08:00 100 01/20/20 07:30 112 24 100 01/20/20 07:00 117 23 165/59 (94) 95 01/20/20 06:12 110 158/64 01/20/20 06:00 110 24 158/68 (98) 01/20/20 05:00 113 24 138/77 (97) 95 01/20/20 04:00 103 01/20/20 04:00 Mechanical Ventilator Mechanical Ventilator 01/20/20 04:00 99.4 115 24 136/56 (82) 96 01/20/20 04:00 100 01/20/20 03:22 118 24 100 01/20/20 03:00 112 24 139/59 (85) 93 01/20/20 02:00 107 24 132/60 (84) 94 01/20/20 01:00 106 24 122/64 (83) 93 01/20/20 00:00 Mechanical Ventilator Mechanical Ventilator 01/20/20 00:00 99.6 102 24 122/68 (86) 94 01/20/20 00:00 103 01/20/20 00:00 100 01/19/20 23:13 102 24 90 01/19/20 23:00 100 24 110/66 (81) 94 01/19/20 22:00 110 125/59 01/19/20 22:00 101 24 117/60 (79) 94 01/19/20 21:00 98 24 121/60 (80) 94 01/19/20 20:00 98.8 96 24 119/56 (77) 94 01/19/20 20:00 100 01/19/20 20:00 100 01/19/20 20:00 Mechanical Ventilator Mechanical Ventilator 01/19/20 19:27 104 24 90 01/19/20 18:00 91 24 101/65 (77) 98 01/19/20 18:00 99.3 88 24 107/56 (73) 99 01/19/20 17:45 96 24 135/75 (95) 98 01/19/20 17:30 98.9 84 24 111/54 (73) 98 01/19/20 17:00 88 24 107/56 (73) 99 01/19/20 16:45 87 24 111/56 (74) 100 01/19/20 16:30 88 24 109/71 (84) 99 01/19/20 16:15 86 24 122/57 (78) 100 01/19/20 16:00 100 01/19/20 16:00 Mechanical Ventilator Mechanical Ventilator 01/19/20 16:00 88 24 92/35 (54) 98 01/19/20 15:45 89 24 74/45 (55) 98 01/19/20 15:45 74/45 01/19/20 15:23 87 01/19/20 15:20 87 24 90 01/19/20 15:00 89 24 83/53 (63) 98 01/19/20 14:00 89 24 90/42 (58) 100 01/19/20 13:34 91 84/46 01/19/20 13:00 85 24 85/43 (57) 99 01/19/20 12:00 98.6 96 24 92/56 (68) 96 01/19/20 12:00 Mechanical Ventilator Mechanical Ventilator 01/19/20 12:00 85 01/19/20 12:00 100 Status: sedated Condition: critical HEENT: atraumatic, normocephalic Lungs: rales, rhonchi Heart: HR/BP stable, regular Abdomen: soft, non-tender Extremities: no C/C/E, edema Decubiti: location Micro: Microbiology Date/Time Source Procedure Growth Status 01/17/20 16:00 Blood Blood Culture - Final Staphylococcus Epidermidis Complete 01/17/20 15:45 Blood Blood Culture - Final Staphylococcus Epidermidis Complete Accucheck: 113 Critical Care - Subjective ROS Limited/Unobtainable: Yes EKG Rhythm: Sinus Rhythm FI02: 100 Vent Support Breath Rate: 24 Vent Support Mode: AC Vent Tidal Volume: 600 Sputum Amount: Small PEEP: 8.0 PIP: 53 Tube Feeding Amount: 10 I&O: Intake and Output 01/19/20 01/20/20 18:59 06:59 Intake Total 554.375 ml 98.75 ml Output Total 2000 ml 0 ml Balance -1445.625 ml 98.75 ml IV Total 414.375 ml 58.75 ml Tube Feeding 60 ml 40 ml Other 80 ml Output Urine Total 0 ml 0 ml Hemodialysis UF 2000 ml # Bowel Movements 3 CXR: Extensive bilateral infiltrates are unchanged. ET-Tube: 7.0 ET Position: 25 Labs: Laboratory Tests Test 01/20/20 03:25 01/20/20 08:26 White Blood Count 26.2 K/UL (4.8-10.8) *H Red Blood Count 3.78 M/UL (4.20-5.40) L Hemoglobin 10.4 G/DL (12.0-16.0) L Hematocrit 31.6 % (37.0-47.0) L Mean Corpuscular Volume 84 FL (80-99) Mean Corpuscular Hemoglobin 27.5 PG (27.0-31.0) Mean Corpuscular Hemoglobin Concent 32.9 G/DL (32.0-36.0) Red Cell Distribution Width 16.2 % (11.6-14.8) H Platelet Count 35 K/UL (150-450) L Mean Platelet Volume 10.7 FL (6.5-10.1) H Neutrophils (%) (Auto) % (45.0-75.0) Lymphocytes (%) (Auto) % (20.0-45.0) Monocytes (%) (Auto) % (1.0-10.0) Eosinophils (%) (Auto) % (0.0-3.0) Basophils (%) (Auto) % (0.0-2.0) Differential Total Cells Counted 100 Neutrophils % (Manual) 74 % (45-75) Lymphocytes % (Manual) 1 % (20-45) L Monocytes % (Manual) 1 % (1-10) Eosinophils % (Manual) 1 % (0-3) Basophils % (Manual) 1 % (0-2) Myelocytes % 1 % (0-0) H Band Neutrophils 21 % (0-8) H Platelet Estimate Decreased L Platelet Morphology Normal Anisocytosis 1+ Microcytosis 1+ Sodium Level 139 MMOL/L (136-145) Potassium Level 4.0 MMOL/L (3.5-5.1) Chloride Level 102 MMOL/L (98-107) Carbon Dioxide Level 23 MMOL/L (21-32) Anion Gap 14 mmol/L (5-15) Blood Urea Nitrogen 47 mg/dL (7-18) H Creatinine 3.3 MG/DL (0.55-1.30) H Estimat Glomerular Filtration Rate 13.3 mL/min (>60) Glucose Level 93 MG/DL (74-106) Calcium Level 8.6 MG/DL (8.5-10.1) Phosphorus Level 5.2 MG/DL (2.5-4.9) H Magnesium Level 2.0 MG/DL (1.8-2.4) Total Bilirubin 1.1 MG/DL (0.2-1.0) H Direct Bilirubin 0.5 MG/DL (0.0-0.3) H Aspartate Amino Transf (AST/SGOT) 63 U/L (15-37) H Alanine Aminotransferase (ALT/SGPT) 31 U/L (12-78) Alkaline Phosphatase 117 U/L (46-116) H C-Reactive Protein, Quantitative 34.1 mg/dL (0.00-0.90) H Pro-B-Type Natriuretic Peptide 69091 pg/mL (0-125) H Total Protein 5.6 G/DL (6.4-8.2) L Albumin 1.7 G/DL (3.4-5.0) L Globulin 3.9 g/dL Albumin/Globulin Ratio 0.4 (1.0-2.7) L Random Vancomycin Level 15.1 ug/mL Arterial Blood pH 7.264 (7.350-7.450) Arterial Blood Partial Pressure CO2 48.0 mmHg (35.0-45.0) H Arterial Blood Partial Pressure O2 69.7 mmHg (75.0-100.0) L Arterial Blood HCO3 21.3 mmol/L (22.0-26.0) L Arterial Blood Oxygen Saturation 90.9 % (95-100) L Arterial Blood Base Excess -5.7 (-2-2) L Chester Test Positive Ann-Marie Graves MD Jan 20, 2020 11:27
--- NOTE | 2020-01-20 12:00 | NUR ---
NURSE NOTES: Pt cleaned and repositioned; oral care provided. Oral temp 97.8 F (with cooling measures). BG 131 - no insulin coverage per protocol. Pt now observed opening eyes spontaneously. No acute distress. Will continue to monitor. Addendum: 01/20/20 at 1314 by Isha Ellis RN Late entry: no gastric residuals noted at this time. TF rate advanced to 20 cc/hr.
--- NOTE | 2020-01-20 13:09 | Diagnostic Imaging Report ---
Indication: Dyspnea Technique: One view of the chest Comparison: 01/19/2020 Findings: Bilateral extensive and diffuse infiltrates are again demonstrated, probably unchanged. Stable satisfactory tube and line positions. Impression: Unchanged, over one day, findings as above.
--- NOTE | 2020-01-20 14:00 | NUR ---
NURSE NOTES: Pt repositioned. No acute distress noted at this time.
[2020-01-20] MEDS: Norepinephrine 4mg/NS Premix 250 ML IV SCH (15:03)
--- NOTE | 2020-01-20 16:00 | NUR ---
NURSE NOTES: Pt cleaned and repositioned. Oral care provided. Remains afebrile with cooling measures. No acute distress noted. Will continue to monitor.
--- NOTE | 2020-01-20 16:12 | Surgery Progress Note ---
Surgery Progress Note Subjective Procedure Performed left subclavian central venous catheter insertion Additional Comments ill appearing on support no n/v Objective Last 24 Hour Vital Signs Date Time Temp Pulse Resp B/P (MAP) Pulse Ox O2 Delivery O2 Flow Rate FiO2 01/20/20 15:10 102 24 100 01/20/20 15:03 136/53 01/20/20 15:00 96 24 136/53 (80) 94 01/20/20 14:00 98 24 125/70 (88) 95 01/20/20 13:12 92 106/54 01/20/20 13:00 92 24 106/54 (71) 95 01/20/20 12:00 102 01/20/20 12:00 97.3 01/20/20 12:00 100 01/20/20 12:00 Mechanical Ventilator Mechanical Ventilator 01/20/20 12:00 99 24 104/51 (68) 100 01/20/20 11:30 95 24 100 01/20/20 11:00 98 24 95/47 (63) 94 01/20/20 10:00 103 24 101/47 (65) 94 01/20/20 09:00 113 23 104/50 (68) 93 01/20/20 08:00 Mechanical Ventilator Mechanical Ventilator 01/20/20 08:00 100.0 115 23 146/60 (88) 95 01/20/20 08:00 117 01/20/20 08:00 100 01/20/20 07:30 112 24 100 01/20/20 07:00 117 23 165/59 (94) 95 01/20/20 06:12 110 158/64 01/20/20 06:00 110 24 158/68 (98) 01/20/20 05:00 113 24 138/77 (97) 95 01/20/20 04:00 103 01/20/20 04:00 Mechanical Ventilator Mechanical Ventilator 01/20/20 04:00 99.4 115 24 136/56 (82) 96 01/20/20 04:00 100 01/20/20 03:22 118 24 100 01/20/20 03:00 112 24 139/59 (85) 93 01/20/20 02:00 107 24 132/60 (84) 94 01/20/20 01:00 106 24 122/64 (83) 93 01/20/20 00:00 Mechanical Ventilator Mechanical Ventilator 01/20/20 00:00 99.6 102 24 122/68 (86) 94 01/20/20 00:00 103 01/20/20 00:00 100 01/19/20 23:13 102 24 90 01/19/20 23:00 100 24 110/66 (81) 94 01/19/20 22:00 110 125/59 01/19/20 22:00 101 24 117/60 (79) 94 01/19/20 21:00 98 24 121/60 (80) 94 01/19/20 20:00 98.8 96 24 119/56 (77) 94 01/19/20 20:00 100 01/19/20 20:00 100 01/19/20 20:00 Mechanical Ventilator Mechanical Ventilator 01/19/20 19:27 104 24 90 01/19/20 18:00 91 24 101/65 (77) 98 01/19/20 18:00 99.3 88 24 107/56 (73) 99 01/19/20 17:45 96 24 135/75 (95) 98 01/19/20 17:30 98.9 84 24 111/54 (73) 98 01/19/20 17:00 88 24 107/56 (73) 99 01/19/20 16:45 87 24 111/56 (74) 100 01/19/20 16:30 88 24 109/71 (84) 99 01/19/20 16:15 86 24 122/57 (78) 100 I&O Intake and Output 01/19/20 01/20/20 19:00 07:00 Intake Total 564.375 ml 88.75 ml Output Total 2000 ml 0 ml Balance -1435.625 ml 88.75 ml IV Total 414.375 ml 58.75 ml Tube Feeding 70 ml 30 ml Other 80 ml Output Urine Total 0 ml 0 ml Hemodialysis UF 2000 ml # Bowel Movements 3 1 Dressing: saturated Cardiovascular: RSR Respiratory: decreased breath sounds Abdomen: non-tender, present bowel sounds Extremities: no edema, no tenderness, no cyanosis Laboratory Tests Test 01/20/20 03:25 01/20/20 08:26 White Blood Count 26.2 K/UL (4.8-10.8) *H Red Blood Count 3.78 M/UL (4.20-5.40) L Hemoglobin 10.4 G/DL (12.0-16.0) L Hematocrit 31.6 % (37.0-47.0) L Mean Corpuscular Volume 84 FL (80-99) Mean Corpuscular Hemoglobin 27.5 PG (27.0-31.0) Mean Corpuscular Hemoglobin Concent 32.9 G/DL (32.0-36.0) Red Cell Distribution Width 16.2 % (11.6-14.8) H Platelet Count 35 K/UL (150-450) L Mean Platelet Volume 10.7 FL (6.5-10.1) H Neutrophils (%) (Auto) % (45.0-75.0) Lymphocytes (%) (Auto) % (20.0-45.0) Monocytes (%) (Auto) % (1.0-10.0) Eosinophils (%) (Auto) % (0.0-3.0) Basophils (%) (Auto) % (0.0-2.0) Differential Total Cells Counted 100 Neutrophils % (Manual) 74 % (45-75) Lymphocytes % (Manual) 1 % (20-45) L Monocytes % (Manual) 1 % (1-10) Eosinophils % (Manual) 1 % (0-3) Basophils % (Manual) 1 % (0-2) Myelocytes % 1 % (0-0) H Band Neutrophils 21 % (0-8) H Platelet Estimate Decreased L Platelet Morphology Normal Anisocytosis 1+ Microcytosis 1+ Sodium Level 139 MMOL/L (136-145) Potassium Level 4.0 MMOL/L (3.5-5.1) Chloride Level 102 MMOL/L (98-107) Carbon Dioxide Level 23 MMOL/L (21-32) Anion Gap 14 mmol/L (5-15) Blood Urea Nitrogen 47 mg/dL (7-18) H Creatinine 3.3 MG/DL (0.55-1.30) H Estimat Glomerular Filtration Rate 13.3 mL/min (>60) Glucose Level 93 MG/DL (74-106) Calcium Level 8.6 MG/DL (8.5-10.1) Phosphorus Level 5.2 MG/DL (2.5-4.9) H Magnesium Level 2.0 MG/DL (1.8-2.4) Total Bilirubin 1.1 MG/DL (0.2-1.0) H Direct Bilirubin 0.5 MG/DL (0.0-0.3) H Aspartate Amino Transf (AST/SGOT) 63 U/L (15-37) H Alanine Aminotransferase (ALT/SGPT) 31 U/L (12-78) Alkaline Phosphatase 117 U/L (46-116) H C-Reactive Protein, Quantitative 34.1 mg/dL (0.00-0.90) H Pro-B-Type Natriuretic Peptide 50850 pg/mL (0-125) H Total Protein 5.6 G/DL (6.4-8.2) L Albumin 1.7 G/DL (3.4-5.0) L Globulin 3.9 g/dL Albumin/Globulin Ratio 0.4 (1.0-2.7) L Random Vancomycin Level 15.1 ug/mL Arterial Blood pH 7.264 (7.350-7.450) Arterial Blood Partial Pressure CO2 48.0 mmHg (35.0-45.0) H Arterial Blood Partial Pressure O2 69.7 mmHg (75.0-100.0) L Arterial Blood HCO3 21.3 mmol/L (22.0-26.0) L Arterial Blood Oxygen Saturation 90.9 % (95-100) L Arterial Blood Base Excess -5.7 (-2-2) L Chester Test Positive Plan Problems: (1) Acute on chronic systolic (congestive) heart failure (2) CO2 retention (3) BORIS (acute kidney injury) (4) Shock liver Assessment & Plan: Hypotensive septic acute elevation in LFTs AST ALT thousands alk phos elevated. Likely shock from hypotension and acute episode. Labs trending down. IV fluid hydration. No acute intervention. Hold on imaging. Line reviewed. No bleeding noted. All 3 ports functional. Chest x-ray reviewed. Drop in hemoglobin unlikely related to line. Will monitor. Trend labs. Transfuse PRN. And are improvement in position of previously malpositioned endotracheal tube, tip now projecting 1-2 cm above the garrett. Interim placement of an oroga stric tube, tip of which projects beyond the edge of the image, presumably well within the stomach. Interim placement of a left subclavian central venous catheter, tip of which projects at the level of the innominate venous confluence. No pneumothorax. Erik ateral infiltrates are again demonstrated, unchanged. Impression: Improved and now satisfactory position of endotracheal tube Interim left subclavian central venous catheter placement, no radiographically evident complication Interim orogastric intubation, apparently satisfactory Unchanged bilateral infiltrates (5) Atrial fibrillation (6) Diabetes mellitus (7) CHF (congestive heart failure) (8) Hypothyroidism Assessment & Plan: DAILY ESTIMATED NEEDS: Needs based on Critical care 54kg abw 22-30 kcals/kg 1330-1378 total kcals 1.25-2 g protein/kg 68-108 g total protein 20-25 mL/kg 3491-1611 total fluid mLs NUTRITION DIAGNOSIS: Swallowing difficulty r/t resp status as evidenced by pt adm w/ covid 19 ++, on bipap, now s/p code blue, intubated, on OGT feeds. CURRENT TF:VITAL AF 1.2 @ 55ml/hr x22 hrs ENTERAL NUTRITION RECOMMENDATIONS: VITAL AF 1.2 @ 55ml/hr x 22 hrs to provide 1210, 1452kcal, 91g prot, 981ml free water * Maintain current TF * Hold 1 hr before and after Synthroid * HOB over 30 degrees/ water flush per MD If renal fxn cont to worsen (creat 3.2 w/ phos 6.1 on 01/12) -> rec TF change to Nepro @ goal rate of 35ml/hr x 22 hrs to provide 770ml, 1386kcal, 62g prot (1.15g/kg), 560ml free water ADDITIONAL RECOMMENDATIONS: 1) Maintain calibrated bed scale wts daily 2) Monitor renal fxn and lytes, need for renal TF (creat worsening 3.2, phos 6.1) 3) Skin integrity: TF @ goal provides 100% RDI Odell BID 4) Monitor BGs, need for additional hypoglycemics (9) Chronic respiratory failure Assessment & Plan: Intubated intensive care unit weaning vent. ET tube in place. Chest x-ray reviewed. (10) History of hypertension (11) 2019 novel coronavirus detected Assessment & Plan: COVID positive as per ID and pulmonology appreciate input and care. Continue vent support wean as tolerated. (12) Acute respiratory failure due to COVID-19 Satinder Olivera Jan 20, 2020 16:11
--- NOTE | 2020-01-20 16:52 | NUR ---
INSURANCE CLINICALS/REVIEW FAXED TO [facility] [phone]
--- NOTE | 2020-01-20 18:18 | Infectious Diseases Prog Note ---
Assessment/Plan Assessment: Asystole arrest Severe Sepsis COVID19 pneumonia Acute hypoxic resp failure sp NRB> Bipap 100% Fio2> VDRF 100% >80%> 100% -01/15 CXR:Minimal improvement in the degree of airspace opacity involving the left lower lung field.No pneumothorax. -01/13 Sp cx ESBL K,.pna, c. albicans Ucx C. albicans -01/01 CXR: Vascular congestion/developing failure and bilateral patchy infiltrates, slightly worse since prior exam. Small bilateral pleural effusions.Prominent mediastinum likely due to tortuous/ectatic thoracic aorta. -12/31 CXR: Centrally predominant interstitial and airspace opacities, pulmonary edema most likely. Cardiomegaly. Gram positive bacteremia- real vs contaminant- r/o line infection -01/16 Bcx 05/18 GPC S. epi; 01/18 Bcx p Fever; recurrent; improving Leukocytosis; improving Dm2 COPD HTN former smoker CAD CHF RA GERD hypothyroidism Afib [place] resident ([facility]) Plan: -f/u Repeat Cultures - Continue Meropenem #12/22-14 - cont Micafungin #09/18 -Start IV Vancomycin #2 for GPC bacteremia -01/17 SP Linezolid #11 - 01/10 SP Zosyn #6 - 01/09/20 SP Remdesivir #5 - 01/07/20 Ceftriaxone #7 - 12/31 SP Cefepime x1, Flagyl x1 -f/u cx -Monitor CBC/CMP, temperatures -ETT/ICU care -repeat bcx x2 (peripheral, SVC, HD line); may need removal of lines D/w RN and micro staff. Thank you for consulting [facility]. Will continue to follow along with you. Subjective Allergies: Coded Allergies: DOXYCYCLINE (Verified Allergy, Unknown, 04/04/19) RIFAMPIN (Verified Allergy, Unknown, 04/04/19) Tm 100 off pressors repeat bcx p wbc remains elevated Objective Last 24 Hour Vital Signs Date Time Temp Pulse Resp B/P (MAP) Pulse Ox O2 Delivery O2 Flow Rate FiO2 01/20/20 17:00 95 38 125/59 (81) 94 01/20/20 16:00 Mechanical Ventilator Mechanical Ventilator 01/20/20 16:00 98.9 01/20/20 16:00 95 01/20/20 16:00 93 24 128/61 (83) 96 01/20/20 16:00 100 01/20/20 15:10 102 24 100 01/20/20 15:03 136/53 01/20/20 15:00 96 24 136/53 (80) 94 01/20/20 14:00 98 24 125/70 (88) 95 01/20/20 13:12 92 106/54 01/20/20 13:00 92 24 106/54 (71) 95 01/20/20 12:00 102 01/20/20 12:00 97.3 01/20/20 12:00 100 01/20/20 12:00 Mechanical Ventilator Mechanical Ventilator 01/20/20 12:00 99 24 104/51 (68) 100 01/20/20 11:30 95 24 100 01/20/20 11:00 98 24 95/47 (63) 94 01/20/20 10:00 103 24 101/47 (65) 94 01/20/20 09:00 113 23 104/50 (68) 93 01/20/20 08:00 Mechanical Ventilator Mechanical Ventilator 01/20/20 08:00 100.0 115 23 146/60 (88) 95 01/20/20 08:00 117 01/20/20 08:00 100 01/20/20 07:30 112 24 100 01/20/20 07:00 117 23 165/59 (94) 95 01/20/20 06:12 110 158/64 01/20/20 06:00 110 24 158/68 (98) 01/20/20 05:00 113 24 138/77 (97) 95 01/20/20 04:00 103 01/20/20 04:00 Mechanical Ventilator Mechanical Ventilator 01/20/20 04:00 99.4 115 24 136/56 (82) 96 01/20/20 04:00 100 01/20/20 03:22 118 24 100 01/20/20 03:00 112 24 139/59 (85) 93 01/20/20 02:00 107 24 132/60 (84) 94 01/20/20 01:00 106 24 122/64 (83) 93 01/20/20 00:00 Mechanical Ventilator Mechanical Ventilator 01/20/20 00:00 99.6 102 24 122/68 (86) 94 01/20/20 00:00 103 01/20/20 00:00 100 01/19/20 23:13 102 24 90 01/19/20 23:00 100 24 110/66 (81) 94 01/19/20 22:00 110 125/59 01/19/20 22:00 101 24 117/60 (79) 94 01/19/20 21:00 98 24 121/60 (80) 94 01/19/20 20:00 98.8 96 24 119/56 (77) 94 01/19/20 20:00 100 01/19/20 20:00 100 01/19/20 20:00 Mechanical Ventilator Mechanical Ventilator 01/19/20 19:27 104 24 90 Height (Feet): 5 Height (Inches): 2.00 Weight (Pounds): 155 General Appearance:Chronically Ill Neck: supple\ Respiratory: normal inspection, no respiratory distress, no retraction, rales Cardiovascular #1: regular rate, rhythm, edema Gastrointestinal: normal inspection, normal bowel sounds, non tender, soft, no guarding, no hernia Laboratory Tests Test 01/20/20 03:25 01/20/20 08:26 White Blood Count 26.2 K/UL (4.8-10.8) *H Red Blood Count 3.78 M/UL (4.20-5.40) L Hemoglobin 10.4 G/DL (12.0-16.0) L Hematocrit 31.6 % (37.0-47.0) L Mean Corpuscular Volume 84 FL (80-99) Mean Corpuscular Hemoglobin 27.5 PG (27.0-31.0) Mean Corpuscular Hemoglobin Concent 32.9 G/DL (32.0-36.0) Red Cell Distribution Width 16.2 % (11.6-14.8) H Platelet Count 35 K/UL (150-450) L Mean Platelet Volume 10.7 FL (6.5-10.1) H Neutrophils (%) (Auto) % (45.0-75.0) Lymphocytes (%) (Auto) % (20.0-45.0) Monocytes (%) (Auto) % (1.0-10.0) Eosinophils (%) (Auto) % (0.0-3.0) Basophils (%) (Auto) % (0.0-2.0) Differential Total Cells Counted 100 Neutrophils % (Manual) 74 % (45-75) Lymphocytes % (Manual) 1 % (20-45) L Monocytes % (Manual) 1 % (1-10) Eosinophils % (Manual) 1 % (0-3) Basophils % (Manual) 1 % (0-2) Myelocytes % 1 % (0-0) H Band Neutrophils 21 % (0-8) H Platelet Estimate Decreased L Platelet Morphology Normal Anisocytosis 1+ Microcytosis 1+ Sodium Level 139 MMOL/L (136-145) Potassium Level 4.0 MMOL/L (3.5-5.1) Chloride Level 102 MMOL/L (98-107) Carbon Dioxide Level 23 MMOL/L (21-32) Anion Gap 14 mmol/L (5-15) Blood Urea Nitrogen 47 mg/dL (7-18) H Creatinine 3.3 MG/DL (0.55-1.30) H Estimat Glomerular Filtration Rate 13.3 mL/min (>60) Glucose Level 93 MG/DL (74-106) Calcium Level 8.6 MG/DL (8.5-10.1) Phosphorus Level 5.2 MG/DL (2.5-4.9) H Magnesium Level 2.0 MG/DL (1.8-2.4) Total Bilirubin 1.1 MG/DL (0.2-1.0) H Direct Bilirubin 0.5 MG/DL (0.0-0.3) H Aspartate Amino Transf (AST/SGOT) 63 U/L (15-37) H Alanine Aminotransferase (ALT/SGPT) 31 U/L (12-78) Alkaline Phosphatase 117 U/L (46-116) H C-Reactive Protein, Quantitative 34.1 mg/dL (0.00-0.90) H Pro-B-Type Natriuretic Peptide 53200 pg/mL (0-125) H Total Protein 5.6 G/DL (6.4-8.2) L Albumin 1.7 G/DL (3.4-5.0) L Globulin 3.9 g/dL Albumin/Globulin Ratio 0.4 (1.0-2.7) L Random Vancomycin Level 15.1 ug/mL Arterial Blood pH 7.264 (7.350-7.450) Arterial Blood Partial Pressure CO2 48.0 mmHg (35.0-45.0) H Arterial Blood Partial Pressure O2 69.7 mmHg (75.0-100.0) L Arterial Blood HCO3 21.3 mmol/L (22.0-26.0) L Arterial Blood Oxygen Saturation 90.9 % (95-100) L Arterial Blood Base Excess -5.7 (-2-2) L Chester Test Positive Current Medications Medications (Trade) Dose Ordered Sig/Brett Route PRN Reason Start Time Stop Time Status Last Admin Dose Admin Acetaminophen (Tylenol) 650 mg Q4H PRN ORAL FEVER 01/01/20 07:00 01/31/20 06:59 01/19/20 08:50 Acetaminophen (Tylenol) 650 mg Q4H PRN RECTAL Temp >100.5 01/03/20 09:30 02/02/20 09:29 01/03/20 12:18 Albuterol/ Ipratropium (Combivent Respimat) 1 puff Q4H PRN INH Shortness of Breath 01/05/20 20:00 02/04/20 19:59 Allopurinol (allopurinoL) 300 mg DAILY NG 01/07/20 10:45 02/06/20 10:44 01/20/20 08:16 Chlorhexidine Gluconate (Silvia-Hex 2%) 1 applic DAILY@1999 TOPIC 01/07/20 20:00 04/06/20 19:59 01/19/20 20:10 Dextrose (Dextrose 50%) 25 ml Q30M PRN IV Hypoglycemia 01/01/20 08:45 03/31/20 08:44 Dextrose (Dextrose 50%) 50 ml Q30M PRN IV Hypoglycemia 01/01/20 08:45 03/31/20 08:44 Diltiazem HCl (Cardizem Tab) 30 mg EVERY 8 HOURS ORAL 01/18/20 15:45 02/17/20 15:44 01/20/20 13:12 Diltiazem HCl (Cardizem) 15 mg Q12H PRN IVP For High Blood Pressure 01/03/20 07:00 02/02/20 06:59 Insulin Aspart (NovoLOG) Q6HR SUBQ 01/09/20 00:00 03/31/20 11:29 01/15/20 17:57 Levothyroxine Sodium (Synthroid) 200 mcg DAILY@0630 ORAL 01/12/20 06:30 02/11/20 06:29 01/20/20 06:13 Meropenem 500 mg/ Sodium Chloride 55 ml @ 110 mls/hr Q24H IVPB 01/19/20 21:00 01/24/20 20:59 01/19/20 20:54 Metoclopramide HCl (Reglan) 10 mg Q8H PRN IVP high residuals 01/17/20 10:30 02/16/20 10:29 01/19/20 08:50 Micafungin Sodium 100 mg/Sodium Chloride 110 ml @ 110 mls/hr Q24H IVPB 01/15/20 11:00 01/22/20 10:59 01/20/20 11:27 Midodrine (Pro-Amatine) 10 mg THREE TIMES A DAY NG 01/16/20 13:00 04/15/20 12:59 01/20/20 17:51 Norepinephrine Bitartrate 250 ml @ 0 mls/hr Q24H IV 01/19/20 15:09 01/22/20 15:08 01/19/20 15:45 Pantoprazole (Protonix) 40 mg Q12HR IV 01/05/20 21:00 02/04/20 08:59 01/20/20 08:16 Sevelamer Carbonate (Renvela) 800 mg THREE TIMES A DAY NG 01/14/20 13:00 04/13/20 12:59 01/20/20 17:51 Vancomycin HCl (Vanco pharmacy to dose) 1 ea DAILY PRN MISC Per rx protocol 01/19/20 10:15 02/18/20 10:14 Adrienne Cook M.D. Jan 20, 2020 18:18
--- NOTE | 2020-01-20 18:52 | NUR ---
NURSE NOTES: Dr Cook at bedside assessing pt. relayed ABX concern for possible thrombocytopenic effect per Dr Mandel's request - Dr Cook states she will review meds.
--- NOTE | 2020-01-20 19:10 | NUR ---
NURSE NOTES: Received patient and report from ALEX Aguilar. Patient is observed resting in bed and remains alert and oriented x1 to name. No pain noted upon assessment. Pt is currently on 2L NC with an O2 saturation of 98% noted at this time. No s/sx of respiratory distress noted at this time. Bilateral lower lobe breath sounds noted to be diminished upon auscultation. Pt noted to be SR on tele monitor with a HR of 83 and no s/sx of acute cardiac distress noted. R IJ TLC noted which remains asymptomatic, intact and patent. Central line dressing remains clean, dry and intact. D5 1/2NS currently infusing at 50mL/hr and Heparin infusing at 17 u/kg/hr as ordered. Pt assessed for s/sx of active bleeding with none noted at this time. VS obtained and noted to be stable at this time. GT noted which remains intact and patent with feeding currently infusing at 65mL/hr with no residual noted. Active bowel sounds noted in all four quadrants; abdomen remains round and soft. Kelsey catheter noted, draining to yellow urine to gravity. Diagnostics reviewed at bedside. Skin alterations noted. Fall, Aspiration and Skin precautions observed. Pt remains resting in bed; Bed remains in the lowest position with the safety wheels engaged, call light within reach, side rails up x3 and bed alarm activated. Will continue plan of care. Will continue to monitor. Addendum: 01/20/20 at 2100 by GE ROLLINS RN Entered under wrong pt. Please strike from record
--- NOTE | 2020-01-20 19:21 | NUR ---
NURSE HAND-OFF REPORT: Latest Vital Signs: Temperature 98.9 , Pulse 99 , B/P 146 /59 , Respiratory Rate 24 , O2 SAT 94 , Mechanical Ventilator, FiO2 100%. Vital Sign Comment: EKG Rhythm: Atrial Fibrillation Rhythm change?: N MD Notified?: n/a MD Response: n/a Latest Shaw Fall Score: 50 Fall Risk: High Risk Safety Measures: Call light Within Reach, Bed Alarm Zone 3, Side Rails Side Rails x3, Bed position Low and Locked. Fall Precautions: Yellow Socks Yellow Gown Door Sign Patient Fall Education Report given to ALEX Thornton.
--- NOTE | 2020-01-20 19:33 | Cardiology Progress Note ---
Assessment/Plan Assessment/Plan paf now persistent afib pneumonia pulm htn 90's copd dm acute covid 19 infection diastolic failure cardiopulm arrest (pt was found off bipap) respiratory acidosis ARF abn lft probable shock liver imporved abn trop likey realted to cpr anoxic encephalopathy bacteremia personally reviewed tele:afib on low dose cardizem via ngt supportive care vent support heparin for dvt ppx in the settign of unstable renal function post arf remains critically ill and at risk of dying diarrhea bp is nwo better advanced directives noted poa avaiaLBE anemic s/p prbc tx iv abx d/w rn Subjective ROS Limited/Unobtainable: Yes Subjective remain on the vent not responsive per rn Objective Last 24 Hour Vital Signs Date Time Temp Pulse Resp B/P (MAP) Pulse Ox O2 Delivery O2 Flow Rate FiO2 01/20/20 19:00 99 24 146/59 (88) 94 01/20/20 18:00 95 31 135/54 (81) 94 01/20/20 17:00 95 38 125/59 (81) 94 01/20/20 16:00 Mechanical Ventilator Mechanical Ventilator 01/20/20 16:00 98.9 01/20/20 16:00 95 01/20/20 16:00 93 24 128/61 (83) 96 01/20/20 16:00 100 01/20/20 15:10 102 24 100 01/20/20 15:03 136/53 01/20/20 15:00 96 24 136/53 (80) 94 01/20/20 14:00 98 24 125/70 (88) 95 01/20/20 13:12 92 106/54 01/20/20 13:00 92 24 106/54 (71) 95 01/20/20 12:00 102 01/20/20 12:00 97.3 01/20/20 12:00 100 01/20/20 12:00 Mechanical Ventilator Mechanical Ventilator 01/20/20 12:00 99 24 104/51 (68) 100 01/20/20 11:30 95 24 100 01/20/20 11:00 98 24 95/47 (63) 94 01/20/20 10:00 103 24 101/47 (65) 94 01/20/20 09:00 113 23 104/50 (68) 93 01/20/20 08:00 Mechanical Ventilator Mechanical Ventilator 01/20/20 08:00 100.0 115 23 146/60 (88) 95 01/20/20 08:00 117 01/20/20 08:00 100 01/20/20 07:30 112 24 100 01/20/20 07:00 117 23 165/59 (94) 95 01/20/20 06:12 110 158/64 01/20/20 06:00 110 24 158/68 (98) 01/20/20 05:00 113 24 138/77 (97) 95 01/20/20 04:00 103 01/20/20 04:00 Mechanical Ventilator Mechanical Ventilator 01/20/20 04:00 99.4 115 24 136/56 (82) 96 01/20/20 04:00 100 01/20/20 03:22 118 24 100 01/20/20 03:00 112 24 139/59 (85) 93 01/20/20 02:00 107 24 132/60 (84) 94 01/20/20 01:00 106 24 122/64 (83) 93 01/20/20 00:00 Mechanical Ventilator Mechanical Ventilator 01/20/20 00:00 99.6 102 24 122/68 (86) 94 01/20/20 00:00 103 01/20/20 00:00 100 01/19/20 23:13 102 24 90 01/19/20 23:00 100 24 110/66 (81) 94 01/19/20 22:00 110 125/59 01/19/20 22:00 101 24 117/60 (79) 94 01/19/20 21:00 98 24 121/60 (80) 94 01/19/20 20:00 98.8 96 24 119/56 (77) 94 01/19/20 20:00 100 01/19/20 20:00 100 01/19/20 20:00 Mechanical Ventilator Mechanical Ventilator Intake and Output 01/19/20 01/20/20 19:00 07:00 Intake Total 564.375 ml 88.75 ml Output Total 2000 ml 0 ml Balance -1435.625 ml 88.75 ml IV Total 414.375 ml 58.75 ml Tube Feeding 70 ml 30 ml Other 80 ml Output Urine Total 0 ml 0 ml Hemodialysis UF 2000 ml # Bowel Movements 3 1 Laboratory Tests Test 01/20/20 03:25 01/20/20 08:26 White Blood Count 26.2 K/UL (4.8-10.8) *H Red Blood Count 3.78 M/UL (4.20-5.40) L Hemoglobin 10.4 G/DL (12.0-16.0) L Hematocrit 31.6 % (37.0-47.0) L Mean Corpuscular Volume 84 FL (80-99) Mean Corpuscular Hemoglobin 27.5 PG (27.0-31.0) Mean Corpuscular Hemoglobin Concent 32.9 G/DL (32.0-36.0) Red Cell Distribution Width 16.2 % (11.6-14.8) H Platelet Count 35 K/UL (150-450) L Mean Platelet Volume 10.7 FL (6.5-10.1) H Neutrophils (%) (Auto) % (45.0-75.0) Lymphocytes (%) (Auto) % (20.0-45.0) Monocytes (%) (Auto) % (1.0-10.0) Eosinophils (%) (Auto) % (0.0-3.0) Basophils (%) (Auto) % (0.0-2.0) Differential Total Cells Counted 100 Neutrophils % (Manual) 74 % (45-75) Lymphocytes % (Manual) 1 % (20-45) L Monocytes % (Manual) 1 % (1-10) Eosinophils % (Manual) 1 % (0-3) Basophils % (Manual) 1 % (0-2) Myelocytes % 1 % (0-0) H Band Neutrophils 21 % (0-8) H Platelet Estimate Decreased L Platelet Morphology Normal Anisocytosis 1+ Microcytosis 1+ Sodium Level 139 MMOL/L (136-145) Potassium Level 4.0 MMOL/L (3.5-5.1) Chloride Level 102 MMOL/L (98-107) Carbon Dioxide Level 23 MMOL/L (21-32) Anion Gap 14 mmol/L (5-15) Blood Urea Nitrogen 47 mg/dL (7-18) H Creatinine 3.3 MG/DL (0.55-1.30) H Estimat Glomerular Filtration Rate 13.3 mL/min (>60) Glucose Level 93 MG/DL (74-106) Calcium Level 8.6 MG/DL (8.5-10.1) Phosphorus Level 5.2 MG/DL (2.5-4.9) H Magnesium Level 2.0 MG/DL (1.8-2.4) Total Bilirubin 1.1 MG/DL (0.2-1.0) H Direct Bilirubin 0.5 MG/DL (0.0-0.3) H Aspartate Amino Transf (AST/SGOT) 63 U/L (15-37) H Alanine Aminotransferase (ALT/SGPT) 31 U/L (12-78) Alkaline Phosphatase 117 U/L (46-116) H C-Reactive Protein, Quantitative 34.1 mg/dL (0.00-0.90) H Pro-B-Type Natriuretic Peptide 21535 pg/mL (0-125) H Total Protein 5.6 G/DL (6.4-8.2) L Albumin 1.7 G/DL (3.4-5.0) L Globulin 3.9 g/dL Albumin/Globulin Ratio 0.4 (1.0-2.7) L Random Vancomycin Level 15.1 ug/mL Arterial Blood pH 7.264 (7.350-7.450) Arterial Blood Partial Pressure CO2 48.0 mmHg (35.0-45.0) H Arterial Blood Partial Pressure O2 69.7 mmHg (75.0-100.0) L Arterial Blood HCO3 21.3 mmol/L (22.0-26.0) L Arterial Blood Oxygen Saturation 90.9 % (95-100) L Arterial Blood Base Excess -5.7 (-2-2) L Chester Test Positive Objective pt with covid exam deferred remain on the vent no communicative per rn sig secretion bloody Left lip skin tear used stristrip, CDI. Inside of lip line, inserted gauze to stop bleeding. [facility] Oral care provided. Turned and repositioned SpO2 100% Safety measures observed and no acute distress noted. Will continue to monitor Reginaldo Gaming MD Jan 20, 2020 19:33
--- NOTE | 2020-01-20 19:58 | NUR ---
TRANSFER TO FLOOR: Patient transferred to Tele, per MD order. Pt transferred via portable bed without incident. Report given to ALEX Norman. Belongings and medications given to ALEX and verified at bedside. Addendum: 01/20/20 at 2057 by GE ROLLINS RN WRONG PT Please strike from record
--- NOTE | 2020-01-20 20:00 | NUR ---
NURSE NOTES: received report from hyacinth gonzalez pt obtunded orally intubated -vent o2 sat 94% tolerating tube feeding no residual
[2020-01-20] MEDS: Dyna-Hex 2% Top Sol 2oz TOPIC SCH (20:05)
--- NOTE | 2020-01-20 20:06 | Internal Med Progress Note ---
Subjective Date of Service: Jan 20, 2020 Physician Name Harris Greenfield Attending Physician Fernando Peguero MD Current Medications Medications (Trade) Dose Ordered Sig/Brett Route PRN Reason Start Time Stop Time Status Last Admin Dose Admin Acetaminophen (Tylenol) 650 mg Q4H PRN ORAL FEVER 01/01/20 07:00 01/31/20 06:59 01/19/20 08:50 Acetaminophen (Tylenol) 650 mg Q4H PRN RECTAL Temp >100.5 01/03/20 09:30 02/02/20 09:29 01/03/20 12:18 Albuterol/ Ipratropium (Combivent Respimat) 1 puff Q4H PRN INH Shortness of Breath 01/05/20 20:00 02/04/20 19:59 Allopurinol (allopurinoL) 300 mg DAILY NG 01/07/20 10:45 02/06/20 10:44 01/20/20 08:16 Chlorhexidine Gluconate (Silvia-Hex 2%) 1 applic DAILY@1999 TOPIC 01/07/20 20:00 04/06/20 19:59 01/20/20 20:05 Dextrose (Dextrose 50%) 25 ml Q30M PRN IV Hypoglycemia 01/01/20 08:45 03/31/20 08:44 Dextrose (Dextrose 50%) 50 ml Q30M PRN IV Hypoglycemia 01/01/20 08:45 03/31/20 08:44 Diltiazem HCl (Cardizem Tab) 30 mg EVERY 8 HOURS ORAL 01/18/20 15:45 02/17/20 15:44 01/20/20 13:12 Diltiazem HCl (Cardizem) 15 mg Q12H PRN IVP For High Blood Pressure 01/03/20 07:00 02/02/20 06:59 Insulin Aspart (NovoLOG) Q6HR SUBQ 01/09/20 00:00 03/31/20 11:29 01/15/20 17:57 Levothyroxine Sodium (Synthroid) 200 mcg DAILY@0630 ORAL 01/12/20 06:30 02/11/20 06:29 01/20/20 06:13 Meropenem 500 mg/ Sodium Chloride 55 ml @ 110 mls/hr Q24H IVPB 01/19/20 21:00 01/24/20 20:59 01/19/20 20:54 Metoclopramide HCl (Reglan) 10 mg Q8H PRN IVP high residuals 01/17/20 10:30 02/16/20 10:29 01/19/20 08:50 Micafungin Sodium 100 mg/Sodium Chloride 110 ml @ 110 mls/hr Q24H IVPB 01/15/20 11:00 01/22/20 10:59 01/20/20 11:27 Midodrine (Pro-Amatine) 10 mg THREE TIMES A DAY NG 01/16/20 13:00 04/15/20 12:59 01/20/20 17:51 Norepinephrine Bitartrate 250 ml @ 0 mls/hr Q24H IV 01/19/20 15:09 01/22/20 15:08 01/19/20 15:45 Pantoprazole (Protonix) 40 mg Q12HR IV 01/05/20 21:00 02/04/20 08:59 01/20/20 08:16 Sevelamer Carbonate (Renvela) 800 mg THREE TIMES A DAY NG 01/14/20 13:00 04/13/20 12:59 01/20/20 17:51 Vancomycin HCl (Vanco pharmacy to dose) 1 ea DAILY PRN MISC Per rx protocol 01/19/20 10:15 02/18/20 10:14 Allergies: Coded Allergies: DOXYCYCLINE (Verified Allergy, Unknown, 04/04/19) RIFAMPIN (Verified Allergy, Unknown, 04/04/19) ROS Limited/Unobtainable: Yes Subjective 84 YO F admitted with hypoxia. Now COVID 19 pneumonia. Cover for Int med-DR Peguero. ICU. Intubated and sedated Objective Last Vital Signs Date Time Temp Pulse Resp B/P (MAP) Pulse Ox O2 Delivery O2 Flow Rate FiO2 01/20/20 19:00 99 24 146/59 (88) 94 01/20/20 16:00 Mechanical Ventilator Mechanical Ventilator 01/20/20 16:00 98.9 01/20/20 16:00 100 Laboratory Tests Test 01/20/20 03:25 01/20/20 08:26 White Blood Count 26.2 K/UL (4.8-10.8) *H Red Blood Count 3.78 M/UL (4.20-5.40) L Hemoglobin 10.4 G/DL (12.0-16.0) L Hematocrit 31.6 % (37.0-47.0) L Mean Corpuscular Volume 84 FL (80-99) Mean Corpuscular Hemoglobin 27.5 PG (27.0-31.0) Mean Corpuscular Hemoglobin Concent 32.9 G/DL (32.0-36.0) Red Cell Distribution Width 16.2 % (11.6-14.8) H Platelet Count 35 K/UL (150-450) L Mean Platelet Volume 10.7 FL (6.5-10.1) H Neutrophils (%) (Auto) % (45.0-75.0) Lymphocytes (%) (Auto) % (20.0-45.0) Monocytes (%) (Auto) % (1.0-10.0) Eosinophils (%) (Auto) % (0.0-3.0) Basophils (%) (Auto) % (0.0-2.0) Differential Total Cells Counted 100 Neutrophils % (Manual) 74 % (45-75) Lymphocytes % (Manual) 1 % (20-45) L Monocytes % (Manual) 1 % (1-10) Eosinophils % (Manual) 1 % (0-3) Basophils % (Manual) 1 % (0-2) Myelocytes % 1 % (0-0) H Band Neutrophils 21 % (0-8) H Platelet Estimate Decreased L Platelet Morphology Normal Anisocytosis 1+ Microcytosis 1+ Sodium Level 139 MMOL/L (136-145) Potassium Level 4.0 MMOL/L (3.5-5.1) Chloride Level 102 MMOL/L (98-107) Carbon Dioxide Level 23 MMOL/L (21-32) Anion Gap 14 mmol/L (5-15) Blood Urea Nitrogen 47 mg/dL (7-18) H Creatinine 3.3 MG/DL (0.55-1.30) H Estimat Glomerular Filtration Rate 13.3 mL/min (>60) Glucose Level 93 MG/DL (74-106) Calcium Level 8.6 MG/DL (8.5-10.1) Phosphorus Level 5.2 MG/DL (2.5-4.9) H Magnesium Level 2.0 MG/DL (1.8-2.4) Total Bilirubin 1.1 MG/DL (0.2-1.0) H Direct Bilirubin 0.5 MG/DL (0.0-0.3) H Aspartate Amino Transf (AST/SGOT) 63 U/L (15-37) H Alanine Aminotransferase (ALT/SGPT) 31 U/L (12-78) Alkaline Phosphatase 117 U/L (46-116) H C-Reactive Protein, Quantitative 34.1 mg/dL (0.00-0.90) H Pro-B-Type Natriuretic Peptide 92727 pg/mL (0-125) H Total Protein 5.6 G/DL (6.4-8.2) L Albumin 1.7 G/DL (3.4-5.0) L Globulin 3.9 g/dL Albumin/Globulin Ratio 0.4 (1.0-2.7) L Random Vancomycin Level 15.1 ug/mL Arterial Blood pH 7.264 (7.350-7.450) Arterial Blood Partial Pressure CO2 48.0 mmHg (35.0-45.0) H Arterial Blood Partial Pressure O2 69.7 mmHg (75.0-100.0) L Arterial Blood HCO3 21.3 mmol/L (22.0-26.0) L Arterial Blood Oxygen Saturation 90.9 % (95-100) L Arterial Blood Base Excess -5.7 (-2-2) L Chester Test Positive Intake and Output 0 01/19/20 01/20/20 19:00 07:00 Intake Total 564.375 ml 88.75 ml Output Total 2000 ml 0 ml Balance -1435.625 ml 88.75 ml IV Total 414.375 ml 58.75 ml Tube Feeding 70 ml 30 ml Other 80 ml Output Urine Total 0 ml 0 ml Hemodialysis UF 2000 ml # Bowel Movements 3 1 Objective PHYSICAL EXAMINATION: GENERAL: The patient is a well-developed and well-nourished female, in moderate respiratory distress. HEENT: Eyes, pupils equal and responsive to light and accommodation. Extraocular movements are intact. NECK: Supple without lymphadenopathy. CHEST: Mech vent; Decreased breath sounds at bilateral bases with crackles. Otherwise, without wheezes. CARDIOVASCULAR: Regular rhythm and rate. S1, S2 normal without murmurs, rubs, or gallops. ABDOMEN: Soft, nontender, and nondistended. Positive bowel sounds. No evidence of hepatosplenomegaly. Currently, no rebound or guarding noted. EXTREMITIES: Negative for clubbing, cyanosis, or edema. RECTAL/GENITAL: Not performed. NEUROLOGIC: Cranial nerves II through XII are grossly intact without focal deficits. Assessment/Plan Assessment/Plan ASSESSMENT: This is an 84-year-old female with: 1. COVID-19 positive. 2. Bilateral pneumonia. 3. Hypertension. 4. Atrial fibrillation. 5. Chronic obstructive pulmonary disease. 6. Coronary artery disease. 7. Congestive heart failure. 8. Diabetes type 2. 9. Hypothyroidism. 10. Hypercholesterolemia. 11. Rheumatoid arthritis. 12. Gastroesophageal reflux disease. 13. Respiratory failure 14. S/P cardiac arrest 01/05/20 15. Renal failure 16. Severe anemia TREATMENT: 1. COVID-19 positive/pneumonia. Continue decadron; S/P remdesivir 1. Pulmonary/critical care=Dr. Ann-Marie Graves. 2. Hypertension. Continue hydralazine as above. 3. Atrial fibrillation. Continue digoxin as above. 4. Chronic obstructive pulmonary disease. As above, a Pulmonary consultation has been obtained with Dr. Ann-Marie Graves. The patient is currently on albuterol nebulized q.4h. p..r.n. 5. Coronary disease/congestive heart failure. An echocardiogram is pending. A Cardiology consultation has been obtained with Dr. Gaming. 6. Diabetes type 2. NovoLog sliding scale has been instituted. 7. Hypothyroidism. Continue Synthroid as above. 8. Hypercholesterolemia. Continue atorvastatin as above. 9. Rheumatoid arthritis. 10. Gastroesophageal reflux disease. Continue Protonix as above. 11. Continue mech vent per pulmonary 12. ABX=meropenem, linezolid and micafungin 13. CODE STATUS: Full code 14. DVT prophylaxis: Heparin subcu. 15. Next hemodialysis 01/19/20 16. S/P transfusion 4 units PRBC Harris Greenfield MD Jan 20, 2020 20:06
[2020-01-20] MEDS: Meropenem 500mg/NS 55ml IVPB SCH ×2 (20:45)
[2020-01-20] MEDS ORDERED: Tubing Blood Filter IV ONE (21:16)
[2020-01-20] MEDS ORDERED: NS 275ml ONE (21:16)
--- NOTE | 2020-01-20 22:00 | NUR ---
NURSE NOTES: condition un change
--- NOTE | 2020-01-20 22:00 | NUR ---
NURSE NOTES: EEG DONE PT TOLERATED WELL
[2020-01-21] VITALS (35 sets, daily range): BP systolic 75–143; BP diastolic 26–64
--- NOTE | 2020-01-21 | NUR ---
NURSE NOTES: BS 100 NO COVERAGE
--- NOTE | 2020-01-21 | NUR ---
NURSE NOTES: bs 110 no coverage
[2020-01-21] MEDS: dilTIAZem HCl 30mg tab ORAL SCH ×4 (00:02→20:39)
--- NOTE | 2020-01-21 04:00 | NUR ---
NURSE NOTES: complete bed bath
--- NOTE | 2020-01-21 04:00 | NUR ---
NURSE NOTES: complete bed bath done
--- NOTE | 2020-01-21 06:00 | NUR ---
NURSE NOTES: bs 110 no coverage
--- NOTE | 2020-01-21 06:00 | NUR ---
NURSE NOTES: bs 156 insulin coverage as order
[2020-01-21 06:11] LABS: HEMATOCRIT 31.2 % (37.0-47.0); MEAN CORPUSCULAR VOLUME 85 FL (80-99); PLATELET COUNT 19 K/UL (150-450); RED BLOOD COUNT 3.65 M/UL (4.20-5.40); RED CELL DISTRIBUTION WIDTH 16.8 % (11.6-14.8)
[2020-01-21] MEDS: NovoLOG Insulin Flexpen SUBQ SCH ×4 (06:17→17:28)
[2020-01-21 06:25] LABS: INR 1.2 (0.9-1.1)
[2020-01-21 06:39] LABS: ALBUMIN 1.7 G/DL (3.4-5.0); ALBUMIN/GLOBULIN RATIO 0.4 (1.0-2.7); BILIRUBIN,TOTAL 1.2 MG/DL (0.2-1.0); CALCIUM 8.9 MG/DL (8.5-10.1); CREATININE 3.9 MG/DL (0.55-1.30); POTASSIUM 4.3 MMOL/L (3.5-5.1)
[2020-01-21 06:43] LABS: PHOSPHORUS 6.6 MG/DL (2.5-4.9)
[2020-01-21 06:51] LABS: WHITE BLOOD COUNT 24.2 K/UL (4.8-10.8)
[2020-01-21 07:22] LABS: BILIRUBIN,DIRECT 0.6 MG/DL (0.0-0.3)
--- NOTE | 2020-01-21 07:28 | NUR ---
NURSE HAND-OFF REPORT: Latest Vital Signs: Temperature 98.7 , Pulse 101 , B/P 93 /50 , Respiratory Rate 24 , O2 SAT 77 , Mechanical Ventilator, O2 Flow Rate 10.0 . Vital Sign Comment: EKG Rhythm: Atrial Fibrillation Rhythm change?: N Notified?: Eliezer Gaming MD Response: No New Orders Received Latest Shaw Fall Score: 50 Fall Risk: High Risk Safety Measures: Call light Within Reach, Bed Alarm Zone 3, Side Rails Side Rails x3, Bed position Low and Locked. Fall Precautions: Yellow Socks Yellow Gown Door Sign Patient Fall Education Report given to .
--- NOTE | 2020-01-21 07:40 | NUR ---
NURSE NOTES: Report received from ALEX Villalba. Pt lying comfortably in semi-fowlers with no signs of acute distress noted. A+Ox0, with eyes closed, opens eyes minimally with painful stimuli. Pt nonverbal and does not follow commands. Pt Afib on the monitor @ 92. Respirations even and unlabored on mech vent with ETT 7.0, 25 cm @ the lip. Rhonchi heard bilaterally on auscultation. Vent settings AC 24 VT 600, peep of 8, 100% fio2. NG-tube noted with feeding on hold d/t synthroid administration. Right subclavian TLC running TKO. Patient has sacral wound dressed in optifoam, clean and dry. Pt's arms are edemetous, weeping, and bruised. Pt's mouth is bleeding, packed with gauze. All other vitals stable as documented. Bed at lowest position, brakes engaged, siderails x3, bed alarm on, and call light within reach. Pt at stable condition at this time, will continue to monitor.
--- NOTE | 2020-01-21 07:44 | NUR ---
NURSE HAND-OFF REPORT: Latest Vital Signs: Temperature 98.7 , Pulse 101 , B/P 93 /50 , Respiratory Rate 24 , O2 SAT 77 , Mechanical Ventilator, O2 Flow Rate 10.0 . Vital Sign Comment: EKG Rhythm: Atrial Fibrillation Rhythm change?: N Notified?: Eliezer -Dr. Mekhi ELIZONDO Response: No New Orders Received Latest Shaw Fall Score: 50 Fall Risk: High Risk Safety Measures: Call light Within Reach, Bed Alarm Zone 3, Side Rails Side Rails x3, Bed position Low and Locked. Fall Precautions: Yellow Socks Yellow Gown Door Sign Patient Fall Education Report given to angely gonzalez
[2020-01-21] MEDS: Pantoprazole Inj IV SCH ×2 (08:38→20:39)
[2020-01-21] MEDS: Midodrine 10mg tab NG SCH ×3 (08:38→17:28)
[2020-01-21] MEDS: Renvela 800mg Pkt NG SCH ×3 (08:38→17:28)
--- NOTE | 2020-01-21 09:02 | NUR ---
NURSE NOTES: Feeding still on hold d/t residual of 120 ml. Will administer reglan
[2020-01-21] MEDS ORDERED: Sterile Water Irrig 1000ml IRRIG ONE (09:27)
[2020-01-21] MEDS ORDERED: Tubing IV Secondary IV ONE (09:27)
[2020-01-21] MEDS ORDERED: NS 275ml ONE (09:27)
[2020-01-21] MEDS: Metoclopramide 10mg/2ml Inj IVP PRN ×2 (09:37→20:39)
[2020-01-21] MEDS: Norepinephrine 4mg/NS Premix 250 ML IV SCH ×3 (09:37→22:33)
--- NOTE | 2020-01-21 09:53 | NUR ---
NURSE NOTES: BP dropping, levophed restarted, then increased to 4 mcg/min after 15 minutes. Left message with Dr. Graves regarding platelets of 19 today;awaiting response.
--- NOTE | 2020-01-21 10:34 | NUR ---
NURSE NOTES: Dr. Graves @ bedside.
--- NOTE | 2020-01-21 10:49 | NUR ---
NURSE NOTES: HD nurse to be here in the afternoon for pt.
--- NOTE | 2020-01-21 10:52 | Pulmonolgy Critical Care Note ---
Critical Care - Asmt/Plan Problems: (1) Multiorgan failure (2) Acute respiratory failure due to COVID-19 (3) BORIS (acute kidney injury) (4) Thrombocytopenia (5) Acute on chronic systolic (congestive) heart failure (6) Atrial fibrillation (7) Diabetes mellitus (8) CHF (congestive heart failure) (9) Hypothyroidism (10) Chronic respiratory failure (11) History of hypertension Respiratory: monitor respiratory rate, adjust FIO2, CXR Cardiac: continue to monitor HR/BP Renal: F/U I&O, keep IV fluid, check electrolytes Infectious Disease: check cultures Gastrointestinal: continue feedings/current rate Endocrine: continue sliding scale insulin Hematologic: monitor H/H, transfuse if hgb<8.5 Neurologic: PRN Morphine, keep patient comfortable Affect: PRN ativan Prophylaxis: Protonix Time Spent (Minutes): 40 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: 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, 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, 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 Discussed with: nurses, consultants, family preservation caseworkerkeno manager - Objective Last 24 Hour Vital Signs Date Time Temp Pulse Resp B/P (MAP) Pulse Ox O2 Delivery O2 Flow Rate FiO2 01/21/20 10:00 103 24 101/47 (65) 93 01/21/20 09:37 88/42 01/21/20 09:00 104 24 105/53 (70) 92 01/21/20 08:00 Mechanical Ventilator Mechanical Ventilator Mechanical Ventilator 01/21/20 08:00 99.0 100 24 98/49 (65) 93 01/21/20 08:00 100 01/21/20 08:00 100 01/21/20 07:00 101 24 93/50 (64) 77 01/21/20 06:50 101 24 100 01/21/20 06:18 106 116/52 01/21/20 06:00 100 01/21/20 06:00 104 24 95/53 (67) 75 01/21/20 05:00 111 24 103/44 (63) 92 01/21/20 04:00 109 01/21/20 04:00 Mechanical Ventilator Mechanical Ventilator 01/21/20 04:00 98.7 109 25 129/57 (81) 92 01/21/20 03:30 108 24 100 01/21/20 03:00 109 24 110/57 (74) 92 01/21/20 02:00 105 27 124/64 (84) 92 10/9/20 01:00 99.4 106 27 136/58 (84) 92 01/21/20 00:02 110 138/58 01/21/20 00:00 99.4 106 27 136/58 (84) 92 01/21/20 00:00 100 01/21/20 00:00 108 01/21/20 00:00 Mechanical Ventilator Mechanical Ventilator 01/20/20 23:30 107 24 100 01/20/20 23:00 100 25 122/63 (82) 93 01/20/20 22:00 98 28 126/56 (79) 93 01/20/20 21:00 100 24 116/57 (76) 95 01/20/20 20:00 98.4 99 24 103/62 (76) 93 01/20/20 20:00 100 01/20/20 20:00 100 01/20/20 20:00 Mechanical Ventilator Mechanical Ventilator 01/20/20 19:30 94 24 100 01/20/20 19:00 99 24 146/59 (88) 94 01/20/20 18:00 95 31 135/54 (81) 94 01/20/20 17:00 95 38 125/59 (81) 94 01/20/20 16:00 Mechanical Ventilator Mechanical Ventilator 01/20/20 16:00 98.9 01/20/20 16:00 95 01/20/20 16:00 93 24 128/61 (83) 96 01/20/20 16:00 100 01/20/20 15:10 102 24 100 01/20/20 15:03 136/53 01/20/20 15:00 96 24 136/53 (80) 94 01/20/20 14:00 98 24 125/70 (88) 95 01/20/20 13:12 92 106/54 01/20/20 13:00 92 24 106/54 (71) 95 01/20/20 12:00 102 01/20/20 12:00 97.3 01/20/20 12:00 100 01/20/20 12:00 Mechanical Ventilator Mechanical Ventilator 01/20/20 12:00 99 24 104/51 (68) 100 01/20/20 11:30 95 24 100 01/20/20 11:00 98 24 95/47 (63) 94 Status: awake, sedated Condition: critical HEENT: atraumatic, normocephalic Neck: full ROM Lungs: clear Heart: HR/BP stable, murmur diastolic Abdomen: soft, tolerating feeding Extremities: no C/C/E Micro: Microbiology Date/Time Source Procedure Growth Status 01/19/20 11:00 Nasopharynx Coronavirus COVID-19 PCR ([facility]) - Final Complete 01/19/20 11:00 Blood Blood Culture - Preliminary NO GROWTH AFTER 24 HOURS Resulted 01/19/20 10:55 Blood Blood Culture - Preliminary NO GROWTH AFTER 24 HOURS Resulted 01/19/20 10:50 Blood Blood Culture - Preliminary NO GROWTH AFTER 24 HOURS Resulted 01/19/20 10:50 Blood Blood Culture - Preliminary NO GROWTH AFTER 24 HOURS Resulted Accucheck: 156 Critical Care - Subjective ROS Limited/Unobtainable: Yes Condition: critical EKG Rhythm: Sinus Rhythm FI02: 100 Vent Support Breath Rate: 24 Vent Support Mode: AC Vent Tidal Volume: 600 Sputum Amount: Small PEEP: 8.0 PIP: 51 Tube Feeding Amount: 0 I&O: Intake and Output 01/20/20 01/21/20 19:00 07:00 Intake Total 685.000 ml 340 ml Output Total 25 ml 0 ml Balance 660.000 ml 340 ml Free Water 70 ml 70 ml IV Total 385.000 ml Tube Feeding 230 ml 270 ml Output Urine Total 25 ml 0 ml # Bowel Movements 1 CXR: Bilateral extensive and diffuse infiltrates are again demonstrated, probably unchanged. Stable satisfactory tube and line positions. ET-Tube: 7.0 ET Position: 25 Labs: Laboratory Tests Test 01/21/20 04:45 01/21/20 05:29 White Blood Count 24.2 K/UL (4.8-10.8) *H Red Blood Count 3.65 M/UL (4.20-5.40) L Hemoglobin 10.0 G/DL (12.0-16.0) L Hematocrit 31.2 % (37.0-47.0) L Mean Corpuscular Volume 85 FL (80-99) Mean Corpuscular Hemoglobin 27.5 PG (27.0-31.0) Mean Corpuscular Hemoglobin Concent 32.2 G/DL (32.0-36.0) Red Cell Distribution Width 16.8 % (11.6-14.8) H Platelet Count 19 K/UL (150-450) L Mean Platelet Volume 15.3 FL (6.5-10.1) H Neutrophils (%) (Auto) % (45.0-75.0) Lymphocytes (%) (Auto) % (20.0-45.0) Monocytes (%) (Auto) % (1.0-10.0) Eosinophils (%) (Auto) % (0.0-3.0) Basophils (%) (Auto) % (0.0-2.0) Differential Total Cells Counted 100 Neutrophils % (Manual) 71 % (45-75) Lymphocytes % (Manual) 3 % (20-45) L Monocytes % (Manual) 1 % (1-10) Eosinophils % (Manual) 1 % (0-3) Basophils % (Manual) 0 % (0-2) Myelocytes % 2 % (0-0) H Band Neutrophils 22 % (0-8) H Nucleated Red Blood Cells 2 /100 WBC Platelet Estimate Decreased L Platelet Morphology Normal Anisocytosis 1+ Prothrombin Time 13.3 SEC (9.30-11.50) H Prothromb Time International Ratio 1.2 (0.9-1.1) H Activated Partial Thromboplast Time 32 SEC (23-33) D-Dimer 33.45 mg/L FEU (0.00-0.49) H Sodium Level 139 MMOL/L (136-145) Potassium Level 4.3 MMOL/L (3.5-5.1) Chloride Level 102 MMOL/L (98-107) Carbon Dioxide Level 22 MMOL/L (21-32) Anion Gap 15 mmol/L (5-15) Blood Urea Nitrogen 59 mg/dL (7-18) H Creatinine 3.9 MG/DL (0.55-1.30) H Estimat Glomerular Filtration Rate 11.0 mL/min (>60) Glucose Level 174 MG/DL (74-106) H Calcium Level 8.9 MG/DL (8.5-10.1) Phosphorus Level 6.6 MG/DL (2.5-4.9) H Magnesium Level 2.3 MG/DL (1.8-2.4) Total Bilirubin 1.2 MG/DL (0.2-1.0) H Direct Bilirubin 0.6 MG/DL (0.0-0.3) H Aspartate Amino Transf (AST/SGOT) 55 U/L (15-37) H Alanine Aminotransferase (ALT/SGPT) 14 U/L (12-78) Alkaline Phosphatase 156 U/L (46-116) H C-Reactive Protein, Quantitative 32.1 mg/dL (0.00-0.90) H Pro-B-Type Natriuretic Peptide 72121 pg/mL (0-125) H Total Protein 5.6 G/DL (6.4-8.2) L Albumin 1.7 G/DL (3.4-5.0) L Globulin 3.9 g/dL Albumin/Globulin Ratio 0.4 (1.0-2.7) L Random Vancomycin Level 25.3 ug/mL POC Whole Blood Glucose Pending Ann-Marie Graves MD Jan 21, 2020 10:52
[2020-01-21] MEDS: Micafungin 100 MG in NS 110 ML IVPB SCH (11:25)
--- NOTE | 2020-01-21 11:47 | Infectious Diseases Prog Note ---
Assessment/Plan Assessment: Asystole arrest Septic Shock COVID19 pneumonia Acute hypoxic resp failure sp NRB> Bipap 100% Fio2> VDRF 100% >80%> 100% -01/15 CXR:Minimal improvement in the degree of airspace opacity involving the left lower lung field.No pneumothorax. -01/13 Sp cx ESBL K,.pna, c. albicans Ucx C. albicans -01/01 CXR: Vascular congestion/developing failure and bilateral patchy infiltrates, slightly worse since prior exam. Small bilateral pleural effusions.Prominent mediastinum likely due to tortuous/ectatic thoracic aorta. -12/31 CXR: Centrally predominant interstitial and airspace opacities, pulmonary edema most likely. Cardiomegaly. Gram positive bacteremia- likely contaminant -01/16 Bcx 05/18 S. epi; 01/18 Bcx NTD (peripheral, HD cath, SVC line) Fever; recurrent; improving Leukocytosis; improving Severe thrombocytopenia- likely 2ry to bone marrow suppression from sepsis Dm2 COPD HTN former smoker CAD CHF RA GERD hypothyroidism Afib [place] resident ([facility]) Plan: -f/u Repeat Cultures - Continue Meropenem #01/25 - cont Micafungin #10/18 -dc empiric IV Vancomycin #3 -01/17 SP Linezolid #11 - 01/10 SP Zosyn #6 - 01/09/20 SP Remdesivir #5 - 01/07/20 Ceftriaxone #7 - 12/31 SP Cefepime x1, Flagyl x1 -f/u cx -Monitor CBC/CMP, temperatures -ETT/ICU care -f/u repeat bcx x2 (peripheral, SVC, HD line) -poor prognosis D/w RN Thank you for consulting [facility]. Will continue to follow along with you. Subjective Allergies: Coded Allergies: DOXYCYCLINE (Verified Allergy, Unknown, 04/04/19) RIFAMPIN (Verified Allergy, Unknown, 04/04/19) Tm 100.1 wbc improving levophed at 2 Fio2 100% thrombocytopenia worsening repeat bcx NTD Objective Last 24 Hour Vital Signs Date Time Temp Pulse Resp B/P (MAP) Pulse Ox O2 Delivery O2 Flow Rate FiO2 01/21/20 10:45 106 24 100 01/21/20 10:00 103 24 101/47 (65) 93 01/21/20 09:37 88/42 01/21/20 09:00 104 24 105/53 (70) 92 01/21/20 08:00 Mechanical Ventilator Mechanical Ventilator Mechanical Ventilator 01/21/20 08:00 99.0 100 24 98/49 (65) 93 01/21/20 08:00 100 01/21/20 08:00 100 01/21/20 07:00 101 24 93/50 (64) 77 01/21/20 06:50 101 24 100 01/21/20 06:18 106 116/52 01/21/20 06:00 100 01/21/20 06:00 104 24 95/53 (67) 75 01/21/20 05:00 111 24 103/44 (63) 92 01/21/20 04:00 109 01/21/20 04:00 Mechanical Ventilator Mechanical Ventilator 01/21/20 04:00 98.7 109 25 129/57 (81) 92 01/21/20 03:30 108 24 100 01/21/20 03:00 109 24 110/57 (74) 92 01/21/20 02:00 105 27 124/64 (84) 92 01/21/20 01:00 99.4 106 27 136/58 (84) 92 01/21/20 00:02 110 138/58 01/21/20 00:00 99.4 106 27 136/58 (84) 92 01/21/20 00:00 100 01/21/20 00:00 108 01/21/20 00:00 Mechanical Ventilator Mechanical Ventilator 01/20/20 23:30 107 24 100 01/20/20 23:00 100 25 122/63 (82) 93 01/20/20 22:00 98 28 126/56 (79) 93 01/20/20 21:00 100 24 116/57 (76) 95 01/20/20 20:00 98.4 99 24 103/62 (76) 93 01/20/20 20:00 100 01/20/20 20:00 100 01/20/20 20:00 Mechanical Ventilator Mechanical Ventilator 01/20/20 19:30 94 24 100 01/20/20 19:00 99 24 146/59 (88) 94 01/20/20 18:00 95 31 135/54 (81) 94 01/20/20 17:00 95 38 125/59 (81) 94 01/20/20 16:00 Mechanical Ventilator Mechanical Ventilator 01/20/20 16:00 98.9 01/20/20 16:00 95 01/20/20 16:00 93 24 128/61 (83) 96 01/20/20 16:00 100 01/20/20 15:10 102 24 100 01/20/20 15:03 136/53 01/20/20 15:00 96 24 136/53 (80) 94 01/20/20 14:00 98 24 125/70 (88) 95 01/20/20 13:12 92 106/54 01/20/20 13:00 92 24 106/54 (71) 95 01/20/20 12:00 102 01/20/20 12:00 97.3 01/20/20 12:00 100 01/20/20 12:00 Mechanical Ventilator Mechanical Ventilator 01/20/20 12:00 99 24 104/51 (68) 100 Height (Feet): 5 Height (Inches): 2.00 Weight (Pounds): 155 General Appearance:Chronically Ill Neck: supple\ Respiratory: normal inspection, no respiratory distress, no rales Cardiovascular #1: regular rate, rhythm, edema Gastrointestinal: normal inspection, normal bowel sounds, non tender, soft, no guarding, no hernia Microbiology Date/Time Source Procedure Growth Status 01/19/20 11:00 Nasopharynx Coronavirus COVID-19 PCR ([facility]) - Final Complete 01/19/20 11:00 Blood Blood Culture - Preliminary NO GROWTH AFTER 24 HOURS Resulted 01/19/20 10:55 Blood Blood Culture - Preliminary NO GROWTH AFTER 24 HOURS Resulted 01/19/20 10:50 Blood Blood Culture - Preliminary NO GROWTH AFTER 24 HOURS Resulted 01/19/20 10:50 Blood Blood Culture - Preliminary NO GROWTH AFTER 24 HOURS Resulted Laboratory Tests Test 01/21/20 04:45 01/21/20 05:29 White Blood Count 24.2 K/UL (4.8-10.8) *H Red Blood Count 3.65 M/UL (4.20-5.40) L Hemoglobin 10.0 G/DL (12.0-16.0) L Hematocrit 31.2 % (37.0-47.0) L Mean Corpuscular Volume 85 FL (80-99) Mean Corpuscular Hemoglobin 27.5 PG (27.0-31.0) Mean Corpuscular Hemoglobin Concent 32.2 G/DL (32.0-36.0) Red Cell Distribution Width 16.8 % (11.6-14.8) H Platelet Count 19 K/UL (150-450) L Mean Platelet Volume 15.3 FL (6.5-10.1) H Neutrophils (%) (Auto) % (45.0-75.0) Lymphocytes (%) (Auto) % (20.0-45.0) Monocytes (%) (Auto) % (1.0-10.0) Eosinophils (%) (Auto) % (0.0-3.0) Basophils (%) (Auto) % (0.0-2.0) Differential Total Cells Counted 100 Neutrophils % (Manual) 71 % (45-75) Lymphocytes % (Manual) 3 % (20-45) L Monocytes % (Manual) 1 % (1-10) Eosinophils % (Manual) 1 % (0-3) Basophils % (Manual) 0 % (0-2) Myelocytes % 2 % (0-0) H Band Neutrophils 22 % (0-8) H Nucleated Red Blood Cells 2 /100 WBC Platelet Estimate Decreased L Platelet Morphology Normal Anisocytosis 1+ Prothrombin Time 13.3 SEC (9.30-11.50) H Prothromb Time International Ratio 1.2 (0.9-1.1) H Activated Partial Thromboplast Time 32 SEC (23-33) D-Dimer 33.45 mg/L FEU (0.00-0.49) H Sodium Level 139 MMOL/L (136-145) Potassium Level 4.3 MMOL/L (3.5-5.1) Chloride Level 102 MMOL/L (98-107) Carbon Dioxide Level 22 MMOL/L (21-32) Anion Gap 15 mmol/L (5-15) Blood Urea Nitrogen 59 mg/dL (7-18) H Creatinine 3.9 MG/DL (0.55-1.30) H Estimat Glomerular Filtration Rate 11.0 mL/min (>60) Glucose Level 174 MG/DL (74-106) H Calcium Level 8.9 MG/DL (8.5-10.1) Phosphorus Level 6.6 MG/DL (2.5-4.9) H Magnesium Level 2.3 MG/DL (1.8-2.4) Total Bilirubin 1.2 MG/DL (0.2-1.0) H Direct Bilirubin 0.6 MG/DL (0.0-0.3) H Aspartate Amino Transf (AST/SGOT) 55 U/L (15-37) H Alanine Aminotransferase (ALT/SGPT) 14 U/L (12-78) Alkaline Phosphatase 156 U/L (46-116) H C-Reactive Protein, Quantitative 32.1 mg/dL (0.00-0.90) H Pro-B-Type Natriuretic Peptide 03737 pg/mL (0-125) H Total Protein 5.6 G/DL (6.4-8.2) L Albumin 1.7 G/DL (3.4-5.0) L Globulin 3.9 g/dL Albumin/Globulin Ratio 0.4 (1.0-2.7) L Random Vancomycin Level 25.3 ug/mL POC Whole Blood Glucose Pending Current Medications Medications (Trade) Dose Ordered Sig/Brett Route PRN Reason Start Time Stop Time Status Last Admin Dose Admin Acetaminophen (Tylenol) 650 mg Q4H PRN ORAL FEVER 01/01/20 07:00 01/31/20 06:59 01/19/20 08:50 Acetaminophen (Tylenol) 650 mg Q4H PRN RECTAL Temp >100.5 01/03/20 09:30 02/02/20 09:29 01/03/20 12:18 Albuterol/ Ipratropium (Combivent Respimat) 1 puff Q4H PRN INH Shortness of Breath 01/05/20 20:00 02/04/20 19:59 Allopurinol (allopurinoL) 300 mg DAILY NG 01/07/20 10:45 02/06/20 10:44 01/21/20 08:38 Chlorhexidine Gluconate (Silvia-Hex 2%) 1 applic DAILY@2000 TOPIC 01/07/20 20:00 04/06/20 19:59 01/20/20 20:05 Dextrose (Dextrose 50%) 25 ml Q30M PRN IV Hypoglycemia 01/01/20 08:45 03/31/20 08:44 Dextrose (Dextrose 50%) 50 ml Q30M PRN IV Hypoglycemia 01/01/20 08:45 03/31/20 08:44 Diltiazem HCl (Cardizem Tab) 30 mg EVERY 8 HOURS ORAL 01/18/20 15:45 02/17/20 15:44 01/21/20 06:18 Diltiazem HCl (Cardizem) 15 mg Q12H PRN IVP For High Blood Pressure 01/03/20 07:00 02/02/20 06:59 Insulin Aspart (NovoLOG) Q6HR SUBQ 01/09/20 00:00 03/31/20 11:29 01/21/20 06:17 Levothyroxine Sodium (Synthroid) 200 mcg DAILY@0630 ORAL 01/12/20 06:30 02/11/20 06:29 01/21/20 06:19 Meropenem 500 mg/ Sodium Chloride 55 ml @ 110 mls/hr Q24H IVPB 01/19/20 21:00 01/24/20 20:59 01/20/20 20:45 Metoclopramide HCl (Reglan) 10 mg Q8H PRN IVP high residuals 01/17/20 10:30 02/16/20 10:29 01/21/20 09:37 Micafungin Sodium 100 mg/Sodium Chloride 110 ml @ 110 mls/hr Q24H IVPB 01/15/20 11:00 01/22/20 10:59 01/21/20 11:25 Midodrine (Pro-Amatine) 10 mg THREE TIMES A DAY NG 01/16/20 13:00 04/15/20 12:59 01/21/20 08:38 Norepinephrine Bitartrate 250 ml @ 0 mls/hr Q24H IV 01/19/20 15:09 01/22/20 15:08 01/21/20 09:37 Pantoprazole (Protonix) 40 mg Q12HR IV 01/05/20 21:00 02/04/20 08:59 01/21/20 08:38 Sevelamer Carbonate (Renvela) 800 mg THREE TIMES A DAY NG 01/14/20 13:00 04/13/20 12:59 01/21/20 08:38 Vancomycin HCl (Vanco pharmacy to dose) 1 ea DAILY PRN MISC Per rx protocol 01/19/20 10:15 02/18/20 10:14 Adrienne Cook M.D. Jan 21, 2020 11:47
--- NOTE | 2020-01-21 12:00 | Nephrology Progress Note ---
Assessment/Plan Problem List: (1) BORIS (acute kidney injury) (2) 2019 novel coronavirus detected (3) Hypothyroidism (4) Diabetes mellitus (5) Atrial fibrillation (6) Shock liver Assessment 85-year-old female admitted 5 days ago, at the time serum creatinine was 0.9 and today the serum creatinine is 1.4, most likely BORIS Hypernatremia secondary to free water deficit Prerenal azotemia COVID-19 virus detected Acute on chronic systolic congestive heart failure Atrial fibrillation Diabetes mellitus Hypothyroidism Hypertension Acute on chronic respiratory failure Plan January 20: Patient due for dialysis today. Remains full code and intubated on ventilator. Platelets lowering. D-dimer skyhigh. Continue per PMD with regard to platelet transfusion. Continue per ID advice. January 19: Patient was dialyzed yesterday. Patient states platelet count is lowering. Medications and or ongoing sepsis can be an etiology for that. Discussed with RN. Pharmacy to be contacted regarding any of the current medications that can be responsible for thrombocytopenia. Meanwhile we will arrange for dialysis tomorrow. Avoid using heparin or anticoagulants as possible. January 18: Patient transfused yesterday. Due for dialysis today. Continue current treatment plan. Full code, remains intubated. January 17: Hemoglobin is low today. Due for 2 units of packed RBCs transfusion. Serum creatinine rising. Hemodialysis tomorrow. Continue per consultants. Remains full code and on mechanical ventilation. January 16: Dialyzed yesterday. Ultrafiltration done 2 L. Labs reviewed. Remains intubated on ventilator. Full code. Continue to monitor renal parameters and arrange for dialysis as needed. January 15: Due for dialysis today. Patient hypotensive. Will start pressors and midodrine if needed. Will aim to dialyze and remove excess fluid as possible. Patient full code. Prognosis poor. January 14: Dialyzed yesterday. 2000 mL fluid ultrafiltrated during dialysis. Will dialyze again tomorrow. Continue per consultants. Labs reviewed. Medication list reviewed. Continue as is. January 13: Creatinine rising. Other labs and medication reviewed. Patient intubated. Patient full code. Consent for dialysis catheter is obtained. Will order dialysis after insertion of the non-tunneled dialysis catheter. Discussed with ALEX Hernandez. January 12: Serum creatinine rising. Patient was transfused. Remains full code. Remains intubated on ventilator. Will get consent for placement of non- tunneled dialysis catheter. Further worsening renal parameters may lead to the need for dialysis treatment. Per orders. January 11: Labs reviewed. Serum creatinine higher. Hemoglobin lower. Transfusion 2 units packed RBCs today. Continue to monitor renal parameters. Avoid nephrotoxic's. January 10: Labs reviewed. Serum creatinine 2.5. Liver enzymes are lowering. Remains full code. Remains intubated. Electrolyte abnormalities addressed. Continue per consultants. January 09: Lab reviewed. Serum creatinine lower at 2.6. Liver enzymes are lowering. Patient remains full code and remains intubated. Continue current management. Continue to follow renal parameters. Continue per consultants. Start Cardizem 30 mg every 8 hours via NG tube for elevated blood pressure January 08: Lab reviewed. Serum creatinine 2.8. LFTs improving. Remains intubated. Remains full code. Continue per consultants. Continue to monitor renal parameters. Avoid nephrotoxic's as possible. January 07: Labs reviewed. Serum creatinine robby to 2.9. Liver enzymes are improving. Patient off pressors. Patient full code. Patient intubated on ventilator. Continue to monitor renal parameters. IV fluid changed to normal saline. Continue per consultants. Anemia work-up initiated, iron panel B12 and folate level ordered. January 06: Labs reviewed. Serum creatinine up to 2.6. Medications reviewed. Continue to follow renal parameters and electrolytes. Continue to monitor liver enzymes. Allopurinol for high uric acid given. Discussed with RN. January 05: Blood pressure stable off pressors. Continue IV fluids. Monitor renal parameters. Monitor liver function tests. Hold oral Synthroid at this time. Continue treatment for sepsis and COVID-19 infection IV fluids Keep the blood pressure over 100 systolic Monitor renal parameters and electrolytes Monitor liver function tests Avoid nephrotoxic's as possible Urine studies Digoxin level Thyroid function tests Per orders Subjective ROS Limited/Unobtainable: Yes Objective Objective Last 24 Hour Vital Signs Date Time Temp Pulse Resp B/P (MAP) Pulse Ox O2 Delivery O2 Flow Rate FiO2 01/21/20 11:00 106 24 129/48 (75) 93 01/21/20 10:45 106 24 100 01/21/20 10:00 103 24 101/47 (65) 93 01/21/20 09:37 88/42 01/21/20 09:00 104 24 105/53 (70) 92 01/21/20 08:00 Mechanical Ventilator Mechanical Ventilator Mechanical Ventilator 01/21/20 08:00 99.0 100 24 98/49 (65) 93 01/21/20 08:00 100 01/21/20 08:00 100 01/21/20 07:00 101 24 93/50 (64) 77 01/21/20 06:50 101 24 100 01/21/20 06:18 106 116/52 01/21/20 06:00 100 01/21/20 06:00 104 24 95/53 (67) 75 01/21/20 05:00 111 24 103/44 (63) 92 01/21/20 04:00 109 01/21/20 04:00 Mechanical Ventilator Mechanical Ventilator 01/21/20 04:00 98.7 109 25 129/57 (81) 92 01/21/20 03:30 108 24 100 01/21/20 03:00 109 24 110/57 (74) 92 01/21/20 02:00 105 27 124/64 (84) 92 01/21/20 01:00 99.4 106 27 136/58 (84) 92 01/21/20 00:02 110 138/58 01/21/20 00:00 99.4 106 27 136/58 (84) 92 01/21/20 00:00 100 01/21/20 00:00 108 01/21/20 00:00 Mechanical Ventilator Mechanical Ventilator 01/20/20 23:30 107 24 100 01/20/20 23:00 100 25 122/63 (82) 93 01/20/20 22:00 98 28 126/56 (79) 93 01/20/20 21:00 100 24 116/57 (76) 95 01/20/20 20:00 98.4 99 24 103/62 (76) 93 01/20/20 20:00 100 01/20/20 20:00 100 01/20/20 20:00 Mechanical Ventilator Mechanical Ventilator 01/20/20 19:30 94 24 100 01/20/20 19:00 99 24 146/59 (88) 94 01/20/20 18:00 95 31 135/54 (81) 94 01/20/20 17:00 95 38 125/59 (81) 94 01/20/20 16:00 Mechanical Ventilator Mechanical Ventilator 01/20/20 16:00 98.9 01/20/20 16:00 95 01/20/20 16:00 93 24 128/61 (83) 96 10/8/20 16:00 100 01/20/20 15:10 102 24 100 01/20/20 15:03 136/53 01/20/20 15:00 96 24 136/53 (80) 94 01/20/20 14:00 98 24 125/70 (88) 95 01/20/20 13:12 92 106/54 01/20/20 13:00 92 24 106/54 (71) 95 01/20/20 12:00 102 01/20/20 12:00 97.3 01/20/20 12:00 100 01/20/20 12:00 Mechanical Ventilator Mechanical Ventilator 01/20/20 12:00 99 24 104/51 (68) 100 Intake and Output 01/20/20 01/21/20 19:00 07:00 Intake Total 685.000 ml 340 ml Output Total 25 ml 0 ml Balance 660.000 ml 340 ml Free Water 70 ml 70 ml IV Total 385.000 ml Tube Feeding 230 ml 270 ml Output Urine Total 25 ml 0 ml # Bowel Movements 1 Laboratory Tests 01/21/20 04:45: White Blood Count 24.2*H, Red Blood Count 3.65L, Hemoglobin 10.0L, Hematocrit 31.2L, Mean Corpuscular Volume 85, Mean Corpuscular Hemoglobin 27.5, Mean Corpuscular Hemoglobin Concent 32.2, Red Cell Distribution Width 16.8H, Platelet Count 19L, Mean Platelet Volume 15.3H, Neutrophils (%) (Auto) , Lymphocytes (%) (Auto) , Monocytes (%) (Auto) , Eosinophils (%) (Auto) , Basophils (%) (Auto) , Differential Total Cells Counted 100, Neutrophils % (Manual) 71, Lymphocytes % (Manual) 3L, Monocytes % (Manual) 1, Eosinophils % (Manual) 1, Basophils % (Manual) 0, Myelocytes % 2H, Band Neutrophils 22H, Nucleated Red Blood Cells 2, Platelet Estimate DecreasedL, Platelet Morphology Normal, Anisocytosis 1+, Prothrombin Time 13.3H, Prothromb Time International Ratio 1.2H, Activated Partial Thromboplast Time 32, D-Dimer 33.45H, Sodium Level 139, Potassium Level 4.3, Chloride Level 102, Carbon Dioxide Level 22, Anion Gap 15, Blood Urea Nitrogen 59H, Creatinine 3.9H, Estimat Glomerular Filtration Rate 11.0, Glucose Level 174H, Calcium Level 8.9, Phosphorus Level 6.6H, Magnesium Level 2.3, Total Bilirubin 1.2H, Direct Bilirubin 0.6H, Aspartate Amino Transf (AST/SGOT) 55H, Alanine Aminotransferase (ALT/SGPT) 14, Alkaline Phosphatase 156H, C-Reactive Protein, Quantitative 32.1H, Pro-B-Type Natriuretic Peptide 82524R, Total Protein 5.6L, Albumin 1.7L, Globulin 3.9, Albumin/Globulin Ratio 0.4L, Random Vancomycin Level 25.3 01/21/20 05:29: POC Whole Blood Glucose [Pending] Height (Feet): 5 Height (Inches): 2.00 Weight (Pounds): 155 General Appearance: no apparent distress EENT: other - Intubated on ventilator Cardiovascular: tachycardia Respiratory/Chest: decreased breath sounds Abdomen: distended Naun Mandel MD Jan 21, 2020 12:00
--- NOTE | 2020-01-21 12:19 | NUR ---
NURSE NOTES: Dr. Graves aware of Heart rate getting up to 116, afib. He said to call when heart rate in 120s sustained.
--- NOTE | 2020-01-21 12:35 | NUR ---
NURSE NOTES: Left message with Dr. Gaming regarding pt's fluctuating heart rate between 112 and 125; awaiting response.
--- NOTE | 2020-01-21 12:38 | NUR ---
CASE MANAGEMENT:REVIEW 01/21/20 SI: COVID PNA. RESP FAILURE~ INTUBATED UNABLE TO WEAN AT THIS TIME 99.4 109 24 135/59 91% ON 100% FIO2 WBC+24.2 PLT-19 BUN+59 CR+3.9 IS: IV MEROPENEM Q24 LEVOPHED GTT CARDIZEM NG Q8HRS IV PROTONIX Q12 : ICU STATUS
--- NOTE | 2020-01-21 12:55 | NUR ---
NURSE NOTES: HD nurse @ bedside. Pt on levophed, BP stable. HR elevated in the 120s. message left with Dr. Gaming, awaiting response.
--- NOTE | 2020-01-21 13:18 | NUR ---
NURSE NOTES: Pt O2 sat 87% on 100% Fio2 on the vent. Pt suctioned, oral care done. RT made aware.
--- NOTE | 2020-01-21 13:58 | NUR ---
NURSE NOTES: Per Dr. Gaming, administer 0.125 mg digoxin one time. Order noted in [facility]. Will give once verified.
[2020-01-21] MEDS ORDERED: Digoxin 0.5mg/2ml Inj IVP SCH (14:00)
--- NOTE | 2020-01-21 15:59 | Internal Med Progress Note ---
Subjective Physician Name Fernando Peguero Attending Physician Fernando Peguero MD Current Medications Medications (Trade) Dose Ordered Sig/Brett Route PRN Reason Start Time Stop Time Status Last Admin Dose Admin Acetaminophen (Tylenol) 650 mg Q4H PRN ORAL FEVER 01/01/20 07:00 01/31/20 06:59 01/21/20 13:04 Acetaminophen (Tylenol) 650 mg Q4H PRN RECTAL Temp >100.5 01/03/20 09:30 02/02/20 09:29 01/03/20 12:18 Albuterol/ Ipratropium (Combivent Respimat) 1 puff Q4H PRN INH Shortness of Breath 01/05/20 20:00 02/04/20 19:59 Allopurinol (allopurinoL) 300 mg DAILY NG 01/07/20 10:45 02/06/20 10:44 01/21/20 08:38 Chlorhexidine Gluconate (Silvia-Hex 2%) 1 applic DAILY@2000 TOPIC 01/07/20 20:00 04/06/20 19:59 01/20/20 20:05 Dextrose (Dextrose 50%) 25 ml Q30M PRN IV Hypoglycemia 01/01/20 08:45 03/31/20 08:44 Dextrose (Dextrose 50%) 50 ml Q30M PRN IV Hypoglycemia 01/01/20 08:45 03/31/20 08:44 Digoxin (Lanoxin) 0.125 mg ONCE IVP 01/21/20 14:00 01/21/20 16:00 01/21/20 14:03 Diltiazem HCl (Cardizem Tab) 30 mg EVERY 8 HOURS ORAL 01/18/20 15:45 02/17/20 15:44 01/21/20 13:01 Diltiazem HCl (Cardizem) 15 mg Q12H PRN IVP For High Blood Pressure 01/03/20 07:00 02/02/20 06:59 Insulin Aspart (NovoLOG) Q6HR SUBQ 01/09/20 00:00 03/31/20 11:29 01/21/20 06:17 Levothyroxine Sodium (Synthroid) 200 mcg DAILY@0630 ORAL 01/12/20 06:30 02/11/20 06:29 01/21/20 06:19 Meropenem 500 mg/ Sodium Chloride 55 ml @ 110 mls/hr Q24H IVPB 01/19/20 21:00 01/24/20 20:59 01/20/20 20:45 Metoclopramide HCl (Reglan) 10 mg Q8H PRN IVP high residuals 01/17/20 10:30 02/16/20 10:29 01/21/20 09:37 Midodrine (Pro-Amatine) 10 mg THREE TIMES A DAY NG 01/16/20 13:00 04/15/20 12:59 01/21/20 12:58 Norepinephrine Bitartrate 250 ml @ 0 mls/hr Q24H IV 01/19/20 15:09 01/22/20 15:08 01/21/20 09:37 Pantoprazole (Protonix) 40 mg Q12HR IV 01/05/20 21:00 02/04/20 08:59 01/21/20 08:38 Sevelamer Carbonate (Renvela) 800 mg THREE TIMES A DAY NG 01/14/20 13:00 04/13/20 12:59 01/21/20 12:58 Allergies: Coded Allergies: DOXYCYCLINE (Verified Allergy, Unknown, 04/04/19) RIFAMPIN (Verified Allergy, Unknown, 04/04/19) Subjective in respiratory isolation room, ICU, intubated remained on ventilation, WBC: 24.2, platelet: 19. Objective Last Vital Signs Date Time Temp Pulse Resp B/P (MAP) Pulse Ox O2 Delivery O2 Flow Rate FiO2 01/21/20 15:00 114 23 117/50 (72) 88 01/21/20 13:34 99.8 01/21/20 12:00 100 01/21/20 12:00 Mechanical Ventilator Mechanical Ventilator Mechanical Ventilator Laboratory Tests Test 01/21/20 04:45 01/21/20 05:29 White Blood Count 24.2 K/UL (4.8-10.8) *H Red Blood Count 3.65 M/UL (4.20-5.40) L Hemoglobin 10.0 G/DL (12.0-16.0) L Hematocrit 31.2 % (37.0-47.0) L Mean Corpuscular Volume 85 FL (80-99) Mean Corpuscular Hemoglobin 27.5 PG (27.0-31.0) Mean Corpuscular Hemoglobin Concent 32.2 G/DL (32.0-36.0) Red Cell Distribution Width 16.8 % (11.6-14.8) H Platelet Count 19 K/UL (150-450) L Mean Platelet Volume 15.3 FL (6.5-10.1) H Neutrophils (%) (Auto) % (45.0-75.0) Lymphocytes (%) (Auto) % (20.0-45.0) Monocytes (%) (Auto) % (1.0-10.0) Eosinophils (%) (Auto) % (0.0-3.0) Basophils (%) (Auto) % (0.0-2.0) Differential Total Cells Counted 100 Neutrophils % (Manual) 71 % (45-75) Lymphocytes % (Manual) 3 % (20-45) L Monocytes % (Manual) 1 % (1-10) Eosinophils % (Manual) 1 % (0-3) Basophils % (Manual) 0 % (0-2) Myelocytes % 2 % (0-0) H Band Neutrophils 22 % (0-8) H Nucleated Red Blood Cells 2 /100 WBC Platelet Estimate Decreased L Platelet Morphology Normal Anisocytosis 1+ Prothrombin Time 13.3 SEC (9.30-11.50) H Prothromb Time International Ratio 1.2 (0.9-1.1) H Activated Partial Thromboplast Time 32 SEC (23-33) D-Dimer 33.45 mg/L FEU (0.00-0.49) H Sodium Level 139 MMOL/L (136-145) Potassium Level 4.3 MMOL/L (3.5-5.1) Chloride Level 102 MMOL/L (98-107) Carbon Dioxide Level 22 MMOL/L (21-32) Anion Gap 15 mmol/L (5-15) Blood Urea Nitrogen 59 mg/dL (7-18) H Creatinine 3.9 MG/DL (0.55-1.30) H Estimat Glomerular Filtration Rate 11.0 mL/min (>60) Glucose Level 174 MG/DL (74-106) H Calcium Level 8.9 MG/DL (8.5-10.1) Phosphorus Level 6.6 MG/DL (2.5-4.9) H Magnesium Level 2.3 MG/DL (1.8-2.4) Total Bilirubin 1.2 MG/DL (0.2-1.0) H Direct Bilirubin 0.6 MG/DL (0.0-0.3) H Aspartate Amino Transf (AST/SGOT) 55 U/L (15-37) H Alanine Aminotransferase (ALT/SGPT) 14 U/L (12-78) Alkaline Phosphatase 156 U/L (46-116) H C-Reactive Protein, Quantitative 32.1 mg/dL (0.00-0.90) H Pro-B-Type Natriuretic Peptide 15230 pg/mL (0-125) H Total Protein 5.6 G/DL (6.4-8.2) L Albumin 1.7 G/DL (3.4-5.0) L Globulin 3.9 g/dL Albumin/Globulin Ratio 0.4 (1.0-2.7) L Random Vancomycin Level 25.3 ug/mL POC Whole Blood Glucose Pending Microbiology Date/Time Source Procedure Growth Status 01/19/20 11:00 Nasopharynx Coronavirus COVID-19 PCR ([facility]) - Final Complete 01/19/20 11:00 Blood Blood Culture - Preliminary NO GROWTH AFTER 24 HOURS Resulted 01/19/20 10:55 Blood Blood Culture - Preliminary NO GROWTH AFTER 24 HOURS Resulted 01/19/20 10:50 Blood Blood Culture - Preliminary NO GROWTH AFTER 24 HOURS Resulted 01/19/20 10:50 Blood Blood Culture - Preliminary NO GROWTH AFTER 24 HOURS Resulted Intake and Output 01/20/20 01/21/20 19:00 07:00 Intake Total 685.000 ml 340 ml Output Total 25 ml 0 ml Balance 660.000 ml 340 ml Free Water 70 ml 70 ml IV Total 385.000 ml Tube Feeding 230 ml 270 ml Output Urine Total 25 ml 0 ml # Bowel Movements 1 Objective GENERAL: intubated, remained on ventilation. HEENT: Eyes, pupils equal and responsive to light and accommodation. ET tube, NG tube. NECK: Supple , right IJ dialysis catheter. CHEST: mechanical breath sounds,Decreased breath sounds at bilateral bases, basilar rales. CARDIOVASCULAR: Regular rhythm and rate. S1, S2 normal without murmurs or gallops. ABDOMEN: Soft, nontender, and nondistended. Positive bowel sounds. obesity. EXTREMITIES: Negative for clubbing, cyanosis, or edema. GENITAL: Kelsey catheter. NEUROLOGIC: limited secondary to patient status, moving all extremities slowly. Assessment/Plan Assessment/Plan ASSESSMENT: This is an 84-year-old female with: 1. COVID-19 pneumonia 2.Acute respiratory failure. 3. Hypertension. 4. Atrial fibrillation. 5. Chronic obstructive pulmonary disease. 6. Coronary artery disease. 7. Congestive heart failure. 8. Diabetes type 2. 9. Hypothyroidism. 10. Hypercholesterolemia. 11. Rheumatoid arthritis. 12. Gastroesophageal reflux disease. 13. RADHA / BORSI on hemodialysis 14. S/P cardiac arrest 01/05/20 TREATMENT: 1. COVID-19 positive/pneumonia. A Pulmonary consultation has been obtained with Dr. Ann-Marie Graves. 2. Hypertension. 3. Atrial fibrillation. Continue digoxin as above. 4. Chronic obstructive pulmonary disease. As above, a Pulmonary consultation has been obtained with Dr. Ann-Marie Graves. The patient is currently on albuterol nebulized q.4h. p..r.n. 5. Coronary disease/congestive heart failure. An echocardiogram is pending. A Cardiology consultation has been obtained with Dr. Gaming. 6. Diabetes type 2. NovoLog sliding scale has been instituted. 7. Hypothyroidism. Continue Synthroid as above. 8. Hypercholesterolemia. Continue atorvastatin as above. 9. Rheumatoid arthritis. 10. Gastroesophageal reflux disease. Continue Protonix as above. 11. Continue mech vent per pulmonary 12. Abx:Meropenem #10/14, cont Micafungin #7/7 CODE STATUS: Full code DVT prophylaxis: SCD, hold heparin subcu. hemodialysis today. transfuse platelet unit today. Fernando Peguero MD Jan 21, 2020 15:59
--- NOTE | 2020-01-21 16:03 | NUR ---
NURSE NOTES: Bed bath given, pt suctioned, and oral care done. Pt showing no signs of acute distress. Pt ST 107.
--- NOTE | 2020-01-21 18:11 | NUR ---
NURSE NOTES: pt turned and repositioned, oral care done. Pt bleeding from mouth, packed with gauze.
--- NOTE | 2020-01-21 18:58 | NUR ---
NURSE HAND-OFF REPORT: Latest Vital Signs: Temperature 98.8 , Pulse 110 , B/P 135 /49 , Respiratory Rate 24 , O2 SAT 92 , Mechanical Ventilator, O2 Flow Rate 10.0 . Vital Sign Comment: EKG Rhythm: Atrial Fibrillation Rhythm change?: N Notified?: Eliezer Gaming MD Response: No New Orders Received Latest Shaw Fall Score: 50 Fall Risk: High Risk Safety Measures: Call light Within Reach, Bed Alarm Zone 3, Side Rails Side Rails x3, Bed position Low and Locked. Fall Precautions: Yellow Socks Yellow Gown Door Sign Patient Fall Education Report given to ALEX Magallon.
--- NOTE | 2020-01-21 19:30 | NUR ---
NURSE NOTES: SBAR received from Arline JOHNSON. Patient is not responsive to stimuli, hypoactive pupil reflexes, does not respond to any form of stimulation. Patient is s/p code during this admission-orally intubated 7.0/25cm, AC 24, 600tv, 100%FiO2 and peep of 8. Nepro at 30ml/hr via NGT. Kelsey catheter noted with no urine output. Right IJ Patrick for HD access. L Subclavian TLC and receiving levophed gtt for blood pressure management, s/p HD today. Currently in Afib rhythm 110-120s. Blood pressure is stable while on pressors, Vent and airway safety checks performed. Will continue to monitor.
[2020-01-21] MEDS: Dyna-Hex 2% Top Sol 2oz TOPIC SCH (20:00)
--- NOTE | 2020-01-21 20:00 | NUR ---
NURSE NOTES: Patient assessment performed, patient was suctioned and given oral care, hypoactive gag reflexes. Patient continues to be in Afib into the 110s-120s. CHG bath was given. Patient noted to have 60 of tube residuals. Fall aspiration and skin precautions observed. Airways and vent safety checks performed. Assessed patient for pain by using the FLACC scale methods-0/10 at this time. Patient noted to have alot of bruising and bloody sputum, MD already aware. Will continue to monitor.
--- NOTE | 2020-01-21 20:35 | Surgery Progress Note ---
Surgery Progress Note Subjective Procedure Performed left subclavian central venous catheter insertion Additional Comments ill appearing opn suport Objective Last 24 Hour Vital Signs Date Time Temp Pulse Resp B/P (MAP) Pulse Ox O2 Delivery O2 Flow Rate FiO2 01/21/20 18:00 110 24 135/49 (77) 92 01/21/20 17:00 107 24 104/45 (64) 91 01/21/20 16:00 Mechanical Ventilator Mechanical Ventilator Mechanical Ventilator 01/21/20 16:00 101 01/21/20 16:00 100 01/21/20 16:00 98.8 106 24 104/50 (68) 91 01/21/20 15:02 109 24 100 01/21/20 15:00 114 23 117/50 (72) 88 01/21/20 14:03 121 01/21/20 14:00 113 24 119/62 (81) 88 01/21/20 13:34 99.8 01/21/20 13:01 119 143/52 01/21/20 13:00 100.0 119 24 143/52 (82) 89 01/21/20 12:00 100 01/21/20 12:00 109 24 135/59 (84) 91 01/21/20 12:00 119 01/21/20 12:00 Mechanical Ventilator Mechanical Ventilator Mechanical Ventilator 01/21/20 11:00 106 24 129/48 (75) 93 01/21/20 10:45 106 24 100 01/21/20 10:00 103 24 101/47 (65) 93 01/21/20 09:37 88/42 01/21/20 09:00 104 24 105/53 (70) 92 01/21/20 08:00 Mechanical Ventilator Mechanical Ventilator Mechanical Ventilator 01/21/20 08:00 99.0 100 24 98/49 (65) 93 01/21/20 08:00 100 01/21/20 08:00 100 01/21/20 07:00 101 24 93/50 (64) 77 01/21/20 06:50 101 24 100 01/21/20 06:18 106 116/52 01/21/20 06:00 100 01/21/20 06:00 104 24 95/53 (67) 75 01/21/20 05:00 111 24 103/44 (63) 92 01/21/20 04:00 109 01/21/20 04:00 Mechanical Ventilator Mechanical Ventilator 01/21/20 04:00 98.7 109 25 129/57 (81) 92 01/21/20 03:30 108 24 100 01/21/20 03:00 109 24 110/57 (74) 92 01/21/20 02:00 105 27 124/64 (84) 92 01/21/20 01:00 99.4 106 27 136/58 (84) 92 01/21/20 00:02 110 138/58 01/21/20 00:00 99.4 106 27 136/58 (84) 92 01/21/20 00:00 100 01/21/20 00:00 108 01/21/20 00:00 Mechanical Ventilator Mechanical Ventilator 01/20/20 23:30 107 24 100 01/20/20 23:00 100 25 122/63 (82) 93 01/20/20 22:00 98 28 126/56 (79) 93 01/20/20 21:00 100 24 116/57 (76) 95 I&O Intake and Output 01/20/20 01/21/20 19:00 07:00 Intake Total 685.000 ml 340 ml Output Total 25 ml 0 ml Balance 660.000 ml 340 ml Free Water 70 ml 70 ml IV Total 385.000 ml Tube Feeding 230 ml 270 ml Output Urine Total 25 ml 0 ml # Bowel Movements 1 Dressing: saturated Cardiovascular: RSR Respiratory: decreased breath sounds Abdomen: soft, non-tender, present bowel sounds Extremities: no tenderness, no cyanosis Laboratory Tests Test 01/21/20 04:45 01/21/20 05:29 White Blood Count 24.2 K/UL (4.8-10.8) *H Red Blood Count 3.65 M/UL (4.20-5.40) L Hemoglobin 10.0 G/DL (12.0-16.0) L Hematocrit 31.2 % (37.0-47.0) L Mean Corpuscular Volume 85 FL (80-99) Mean Corpuscular Hemoglobin 27.5 PG (27.0-31.0) Mean Corpuscular Hemoglobin Concent 32.2 G/DL (32.0-36.0) Red Cell Distribution Width 16.8 % (11.6-14.8) H Platelet Count 19 K/UL (150-450) L Mean Platelet Volume 15.3 FL (6.5-10.1) H Neutrophils (%) (Auto) % (45.0-75.0) Lymphocytes (%) (Auto) % (20.0-45.0) Monocytes (%) (Auto) % (1.0-10.0) Eosinophils (%) (Auto) % (0.0-3.0) Basophils (%) (Auto) % (0.0-2.0) Differential Total Cells Counted 100 Neutrophils % (Manual) 71 % (45-75) Lymphocytes % (Manual) 3 % (20-45) L Monocytes % (Manual) 1 % (1-10) Eosinophils % (Manual) 1 % (0-3) Basophils % (Manual) 0 % (0-2) Myelocytes % 2 % (0-0) H Band Neutrophils 22 % (0-8) H Nucleated Red Blood Cells 2 /100 WBC Platelet Estimate Decreased L Platelet Morphology Normal Anisocytosis 1+ Prothrombin Time 13.3 SEC (9.30-11.50) H Prothromb Time International Ratio 1.2 (0.9-1.1) H Activated Partial Thromboplast Time 32 SEC (23-33) D-Dimer 33.45 mg/L FEU (0.00-0.49) H Sodium Level 139 MMOL/L (136-145) Potassium Level 4.3 MMOL/L (3.5-5.1) Chloride Level 102 MMOL/L (98-107) Carbon Dioxide Level 22 MMOL/L (21-32) Anion Gap 15 mmol/L (5-15) Blood Urea Nitrogen 59 mg/dL (7-18) H Creatinine 3.9 MG/DL (0.55-1.30) H Estimat Glomerular Filtration Rate 11.0 mL/min (>60) Glucose Level 174 MG/DL (74-106) H Calcium Level 8.9 MG/DL (8.5-10.1) Phosphorus Level 6.6 MG/DL (2.5-4.9) H Magnesium Level 2.3 MG/DL (1.8-2.4) Total Bilirubin 1.2 MG/DL (0.2-1.0) H Direct Bilirubin 0.6 MG/DL (0.0-0.3) H Aspartate Amino Transf (AST/SGOT) 55 U/L (15-37) H Alanine Aminotransferase (ALT/SGPT) 14 U/L (12-78) Alkaline Phosphatase 156 U/L (46-116) H C-Reactive Protein, Quantitative 32.1 mg/dL (0.00-0.90) H Pro-B-Type Natriuretic Peptide 63354 pg/mL (0-125) H Total Protein 5.6 G/DL (6.4-8.2) L Albumin 1.7 G/DL (3.4-5.0) L Globulin 3.9 g/dL Albumin/Globulin Ratio 0.4 (1.0-2.7) L Random Vancomycin Level 25.3 ug/mL POC Whole Blood Glucose Pending Plan Problems: (1) Acute on chronic systolic (congestive) heart failure (2) CO2 retention (3) BORIS (acute kidney injury) (4) Shock liver Assessment & Plan: Hypotensive septic acute elevation in LFTs AST ALT thousands alk phos elevated. Likely shock from hypotension and acute episode. Labs trending down. IV fluid hydration. No acute intervention. Hold on imaging. Line reviewed. No bleeding noted. All 3 ports functional. Chest x-ray reviewed. Drop in hemoglobin unlikely related to line. Will monitor. Trend labs. Transfuse PRN. And are improvement in position of previously malpositioned endotracheal tube, tip now projecting 1-2 cm above the garrett. Interim placement of an orogastric tube, tip of which projects beyond the edge of the image, presumably well within the stomach. Interim placement of a left subclavian central venous catheter, tip of which projects at the level of the innominate venous confluence. No pneumothorax. Bilateral infiltrates are again demonstrated, unchanged. Impression: Improved and now satisfactory position of endotracheal tube Interim left subclavian central venous catheter placement, no radiographically evident complication Interim orogastric intubation, apparently satisfactory Unchanged bilateral infiltrates (5) Atrial fibrillation (6) Diabetes mellitus (7) CHF (congestive heart failure) (8) Hypothyroidism Assessment & Plan: DAILY ESTIMATED NEEDS: Needs based on Critical care 54kg abw 22-30 kcals/kg 1767-1734 total kcals 1.25-2 g protein/kg 68-108 g total protein 20-25 mL/kg 7338-3162 total fluid mLs NUTRITION DIAGNOSIS: Swallowing difficulty r/t resp status as evidenced by pt adm w/ covid 19 ++, on bipap, now s/p code blue, intubated, on OGT feeds. CURRENT TF:VITAL AF 1.2 @ 55ml/hr x22 hrs ENTERAL NUTRITION RECOMMENDATIONS: VITAL AF 1.2 @ 55ml/hr x 22 hrs to provide 1210, 1452kcal, 91g prot, 981ml free water * Maintain current TF * Hold 1 hr before and after Synthroid * HOB over 30 degrees/ water flush per MD If renal fxn cont to worsen (creat 3.2 w/ phos 6.1 on 01/12) -> rec TF change to Nepro @ goal rate of 35ml/hr x 22 hrs to provide 770ml, 1386kcal, 62g prot (1.15g/kg), 560ml free water ADDITIONAL RECOMMENDATIONS: 1) Maintain calibrated bed scale wts daily 2) Monitor renal fxn and lytes, need for renal TF (creat worsening 3.2, phos 6.1) 3) Skin integrity: TF @ goal provides 100% RDI Odell BID 4) Monitor BGs, need for additional hypoglycemics (9) Chronic respiratory failure Assessment & Plan: Intubated intensive care unit weaning vent. ET tube in place. Chest x-ray reviewed. (10) History of hypertension (11) 2019 novel coronavirus detected Assessment & Plan: COVID positive as per ID and pulmonology appreciate input and care. Continue vent support wean as tolerated. (12) Acute respiratory failure due to COVID-19 Satinder Olivera Jan 21, 2020 20:35
[2020-01-21] MEDS: Meropenem 500mg/NS 55ml IVPB SCH ×2 (20:39)
--- NOTE | 2020-01-21 22:00 | NUR ---
NURSE NOTES: Patient blood pressure is 85/44 HR is 108 and Spo2 is 76%, patient is already on 100% Fio2. Bright red bloody sputum noted Patient continues to seems fluids via whole body, very edematous, patient unstable at this time, MD notified no new orders at this time. Increased Pressors to maintain blood pressure.
--- NOTE | 2020-01-21 22:36 | NUR ---
NURSE NOTES: Bedside assessment performed, assessed pt with a FLACC scale of 0 noted. Levophed currently infusing at 4mcg/min with a current BP of 94/56 and HR of 119 noted. Levophed bag noted to be near empty, new bag removed from Pyxis and scanned on behalf of primary RN who remains present at bedside performing pt care. Pt remains calm, comfortable, clean and dry. Fall, Aspiration and Skin precautions observed. Pt remains resting in bed; Bed remains in the lowest position with the safety wheels engaged, call light within reach, side rails up x3 and bed alarm activated. Will continue plan of care. Will continue to monitor.
[2020-01-22] VITALS (24 sets, daily range): BP systolic 58–107; BP diastolic 18–53
--- NOTE | 2020-01-22 | NUR ---
NURSE NOTES: Patient maxed out on Levophed, patient in shock position, HR is 110 in Afib rhythm, blood pressure remains guarded. Spo2 remains in the 70s while on 100% Fio2 and is bleeding from oral cavity and through the ETT, suctioned patient. Patients neuro status remains unchanged, patient remains comatose. Will continue to monitor.
[2020-01-22] MEDS: Norepinephrine 4mg/NS Premix 250 ML IV SCH ×2 (01:37→02:47)
--- NOTE | 2020-01-22 02:00 | NUR ---
NURSE NOTES: Patient continues on pressors maxed out. Blood secretions with some clotes noted, patient very edematous with alot of bruising. HR in Afib rhythm.
--- NOTE | 2020-01-22 04:00 | NUR ---
NURSE NOTES: Patient bathed and blood drawn and sent to lab. Patient was noted to have recta temp of 101.7F. Cooling blanket applied. Neruo status remains unchanged-no gag reflex, no pupil reflex, no response to stimulus, flaccid extremities, generalized edemal throughout the whole body with weeping in the upper extremities.
[2020-01-22 04:48] LABS: HEMATOCRIT 31.1 % (37.0-47.0); HEMOGLOBIN 9.5 G/DL (12.0-16.0); MEAN CORPUSCULAR VOLUME 89 FL (80-99); RED BLOOD COUNT 3.49 M/UL (4.20-5.40); RED CELL DISTRIBUTION WIDTH 18.3 % (11.6-14.8); WHITE BLOOD COUNT 20.2 K/UL (4.8-10.8)
[2020-01-22 04:52] LABS: PLATELET COUNT 8 K/UL (150-450)
--- NOTE | 2020-01-22 05:00 | NUR ---
NURSE NOTES: Levophed double concentration hung, standard dose discontinued.
[2020-01-22 05:03] LABS: ALBUMIN 1.6 G/DL (3.4-5.0); ALBUMIN/GLOBULIN RATIO 0.4 (1.0-2.7); BILIRUBIN,TOTAL 1.6 MG/DL (0.2-1.0); CREATININE 3.7 MG/DL (0.55-1.30); POTASSIUM 5.1 MMOL/L (3.5-5.1)
[2020-01-22 05:04] LABS: BILIRUBIN,DIRECT 1.1 MG/DL (0.0-0.3)
[2020-01-22] MEDS: dilTIAZem HCl 30mg tab ORAL SCH (06:00)
[2020-01-22] MEDS: NovoLOG Insulin Flexpen SUBQ SCH ×2 (06:00)
--- NOTE | 2020-01-22 06:00 | NUR ---
NURSE NOTES: Glucose noted to be 32, D50% IVP given.
--- NOTE | 2020-01-22 06:46 | NUR ---
NURSE NOTES: Rechecked glucose after dextrose IVP, now its 122. Feeds on.
--- NOTE | 2020-01-22 07:15 | NUR ---
NURSE NOTES: Report received from ALEX Calixto. Patient is comatose. No response to pain. No eye opening. A-fib with HR 100's on area loss prevention manager. Patient is on cooling blanket. Rectal 96.8. ETT 7.0/25cm at lip line. Continuous small amount of bleeding from lips and mouth noted. AC 24, TV 600, FiO2 100%, P 8. O2 sat 86-89%. Dr Graves is aware. Left NGT in place receiving Nepro at 30cc/hr. 60cc Residual noted. Kelsey in place, not draining any urine. Right IJ Patrick for HD noted. Left subclavian TLC patent and asymptomatic. Levo double concentration is running at 30mcg/min. Generalized pitting edema noted. Weeping from bilateral upper extremities. Bed in lowest position. Side rails up x3. Will resume plan of care.
--- NOTE | 2020-01-22 08:41 | NUR ---
NURSE NOTES: Notified Dr Graves regarding patient's current condition including low BP SBP 80's with Double Levo at max rate and low platelet. Orders received, noted, and carried out.
[2020-01-22] MEDS ORDERED: Phenylephrine 50 MG in D5W 245 ML IV SCH (08:45)
[2020-01-22] MEDS: Midodrine 10mg tab NG SCH (08:47)
[2020-01-22] MEDS: Pantoprazole Inj IV SCH (08:47)
[2020-01-22] MEDS: Renvela 800mg Pkt NG SCH (08:47)
[2020-01-22] MEDS: Metoclopramide 10mg/2ml Inj IVP PRN (08:50)
--- NOTE | 2020-01-22 08:50 | NUR ---
NURSE NOTES: PRN Reglan 10mg IVP given for high residual. Will continue to monitor.
--- NOTE | 2020-01-22 09:09 | NUR ---
NURSE NOTES: Pamela from blood bank informed that platelet will arrive in 2-3 hours.
--- NOTE | 2020-01-22 10:03 | NUR ---
CODE BLUE: BP dropped to 58/32. Scanned Norsynephrine to administer. Patient right after [place] down to 30's, then to 20's, and asystole. Called Code Blue and coded the patient by following the ACLS guideline. See Code sheet which remains on paper.
[2020-01-22] MEDS ORDERED: Calcium Chloride 100mg/ml Vial ONE (10:19)
[2020-01-22] MEDS ORDERED: Sodium Bicarbonate 8.4% 50ml Inj ONE (10:19)
[2020-01-22] MEDS ORDERED: Magnesium Sulfate 2ml Inj ONE (10:19)
[2020-01-22] MEDS ORDERED: Atropine Inj 1mg/10ml Syr ONE (10:19)
[2020-01-22] MEDS ORDERED: NS 500ML ONE (10:19)
--- NOTE | 2020-01-22 10:20 | NUR ---
RESPIRATORY NOTES Upon entering the PT's room, I began CPR, as the PT was seen to be pulseless. Code blue was called immediately after. PT was left on ventilator during the entirety of the code, due to being covid positive. The PT was later pronounced and the code was called off by the ER doctor.
--- NOTE | 2020-01-22 10:20 | NUR ---
NURSE NOTES: Code completed. ER doctor pronounced at 1020. Notified Next of kin, Laly Ritchie (cousin), and doctors.
--- NOTE | 2020-01-22 10:38 | Nephrology Progress Note ---
Assessment/Plan Problem List: (1) BORIS (acute kidney injury) (2) 2019 novel coronavirus detected (3) Hypothyroidism (4) Diabetes mellitus (5) Atrial fibrillation (6) Shock liver Assessment 85-year-old female admitted 5 days ago, at the time serum creatinine was 0.9 and today the serum creatinine is 1.4, most likely BORIS Hypernatremia secondary to free water deficit Prerenal azotemia COVID-19 virus detected Acute on chronic systolic congestive heart failure Atrial fibrillation Diabetes mellitus Hypothyroidism Hypertension Acute on chronic respiratory failure Plan January 21: When entered the ICU at 10:10 AM, patient was being coded and was getting CPR. Prognosis poor. BP non-recordable. At the end , CODE BLUE was unsuccessful and patient . January 20: Patient due for dialysis today. Remains full code and intubated on ventilator. Platelets lowering. D-dimer skyhigh. Continue per PMD with regard to platelet transfusion. Continue per ID advice. January 19: Patient was dialyzed yesterday. Patient states platelet count is lowering. Medications and or ongoing sepsis can be an etiology for that. Discussed with RN. Pharmacy to be contacted regarding any of the current medications that can be responsible for thrombocytopenia. Meanwhile we will arrange for dialysis tomorrow. Avoid using heparin or anticoagulants as possible. January 18: Patient transfused yesterday. Due for dialysis today. Continue current treatment plan. Full code, remains intubated. January 17: Hemoglobin is low today. Due for 2 units of packed RBCs transfusion. Serum creatinine rising. Hemodialysis tomorrow. Continue per consultants. Remains full code and on mechanical ventilation. January 16: Dialyzed yesterday. Ultrafiltration done 2 L. Labs reviewed. Remains intubated on ventilator. Full code. Continue to monitor renal parameters and arrange for dialysis as needed. January 15: Due for dialysis today. Patient hypotensive. Will start pressors and midodrine if needed. Will aim to dialyze and remove excess fluid as possible. Patient full code. Prognosis poor. January 14: Dialyzed yesterday. 2000 mL fluid ultrafiltrated during dialysis. Will dialyze again tomorrow. Continue per consultants. Labs reviewed. Medication list reviewed. Continue as is. January 13: Creatinine rising. Other labs and medication reviewed. Patient intubated. Patient full code. Consent for dialysis catheter is obtained. Will order dialysis after insertion of the non-tunneled dialysis catheter. Discussed with ALEX Hernandez. January 12: Serum creatinine rising. Patient was transfused. Remains full code. Remains intubated on ventilator. Will get consent for placement of non- tunneled dialysis catheter. Further worsening renal parameters may lead to the need for dialysis treatment. Per orders. January 11: Labs reviewed. Serum creatinine higher. Hemoglobin lower. Transfusion 2 units packed RBCs today. Continue to monitor renal parameters. Avoid nephrotoxic's. January 10: Labs reviewed. Serum creatinine 2.5. Liver enzymes are lowering. Remains full code. Remains intubated. Electrolyte abnormalities addressed. Continue per consultants. January 09: Lab reviewed. Serum creatinine lower at 2.6. Liver enzymes are lowering. Patient remains full code and remains intubated. Continue current management. Continue to follow renal parameters. Continue per consultants. Start Cardizem 30 mg every 8 hours via NG tube for elevated blood pressure January 08: Lab reviewed. Serum creatinine 2.8. LFTs improving. Remains intubated. Remains full code. Continue per consultants. Continue to monitor renal parameters. Avoid nephrotoxic's as possible. January 07: Labs reviewed. Serum creatinine robby to 2.9. Liver enzymes are improving. Patient off pressors. Patient full code. Patient intubated on ventilator. Continue to monitor renal parameters. IV fluid changed to normal saline. Continue per consultants. Anemia work-up initiated, iron panel B12 and folate level ordered. January 06: Labs reviewed. Serum creatinine up to 2.6. Medications reviewed. Continue to follow renal parameters and electrolytes. Continue to monitor liver enzymes. Allopurinol for high uric acid given. Discussed with RN. January 05: Blood pressure stable off pressors. Continue IV fluids. Monitor renal parameters. Monitor liver function tests. Hold oral Synthroid at this time. Continue treatment for sepsis and COVID-19 infection IV fluids Keep the blood pressure over 100 systolic Monitor renal parameters and electrolytes Monitor liver function tests Avoid nephrotoxic's as possible Urine studies Digoxin level Thyroid function tests Per orders Subjective ROS Limited/Unobtainable: Yes Objective Objective Last 24 Hour Vital Signs Date Time Temp Pulse Resp B/P (MAP) Pulse Ox O2 Delivery O2 Flow Rate FiO2 01/22/20 10:04 99 102/37 01/22/20 07:15 99 24 100 01/22/20 06:30 106 24 102/37 (58) 88 01/22/20 06:00 97.8 111 24 88/43 (58) 85 01/22/20 06:00 101/50 01/22/20 06:00 109 80/38 01/22/20 05:30 109 24 80/38 (52) 82 01/22/20 05:00 95/37 01/22/20 05:00 115 24 77/38 (51) 85 01/22/20 04:30 101.7 113 24 90/52 (65) 82 01/22/20 04:00 100 01/22/20 04:00 115 24 84/44 (57) 81 01/22/20 04:00 Mechanical Ventilator Mechanical Ventilator Mechanical Ventilator 01/22/20 04:00 113 01/22/20 03:54 110 24 100 01/22/20 03:30 113 24 80/43 (55) 80 01/22/20 03:00 115 24 90/38 (55) 71 01/22/20 02:47 95/37 01/22/20 02:30 118 24 93/41 (58) 72 01/22/20 02:00 116 24 91/38 (55) 70 01/22/20 01:37 79/32 01/22/20 01:00 113 24 79/32 (48) 70 01/22/20 00:45 124 24 99/38 (58) 67 01/22/20 00:30 119 24 103/45 (64) 68 01/22/20 00:15 121 24 100/38 (58) 67 01/22/20 00:00 100 01/22/20 00:00 98.8 126 23 107/44 (65) 69 01/22/20 00:00 Mechanical Ventilator Mechanical Ventilator Mechanical Ventilator 01/22/20 00:00 122 01/21/20 23:54 117 24 100 01/21/20 23:30 127 23 112/39 (63) 70 01/21/20 23:00 131 24 117/46 (69) 73 01/21/20 22:35 103 24 76/34 (48) 77 01/21/20 22:33 94/56 01/21/20 22:30 120 24 115/43 (67) 77 01/21/20 22:22 112 24 94/46 (62) 74 01/21/20 22:18 103 24 81/43 (56) 78 10/9/20 22:15 99 24 75/26 (42) 76 01/21/20 22:11 102 24 75/39 (51) 79 01/21/20 22:02 105 24 81/43 (56) 77 01/21/20 22:00 108 24 85/44 (58) 76 01/21/20 21:30 116 24 102/50 (67) 74 01/21/20 21:00 116 24 130/53 (78) 83 01/21/20 20:39 110 135/49 01/21/20 20:30 117 24 138/43 (74) 92 01/21/20 20:00 100 01/21/20 20:00 119 01/21/20 20:00 114 24 129/61 (83) 93 01/21/20 20:00 Mechanical Ventilator Mechanical Ventilator Mechanical Ventilator 01/21/20 19:30 104 24 115/44 (67) 93 01/21/20 19:00 111 24 126/56 (79) 93 01/21/20 18:00 110 24 135/49 (77) 92 01/21/20 17:00 107 24 104/45 (64) 91 01/21/20 16:00 Mechanical Ventilator Mechanical Ventilator Mechanical Ventilator 01/21/20 16:00 101 01/21/20 16:00 100 01/21/20 16:00 98.8 106 24 104/50 (68) 91 01/21/20 15:02 109 24 100 01/21/20 15:00 114 23 117/50 (72) 88 01/21/20 14:03 121 01/21/20 14:00 113 24 119/62 (81) 88 01/21/20 13:34 99.8 01/21/20 13:01 119 143/52 01/21/20 13:00 100.0 119 24 143/52 (82) 89 01/21/20 12:00 100 01/21/20 12:00 109 24 135/59 (84) 91 01/21/20 12:00 119 01/21/20 12:00 Mechanical Ventilator Mechanical Ventilator Mechanical Ventilator 01/21/20 11:00 106 24 129/48 (75) 93 01/21/20 10:45 106 24 100 Intake and Output 0 01/21/20 01/22/20 19:00 07:00 Intake Total 493.125 ml 897.26 ml Output Total 2010 ml 0 ml Balance -1516.875 ml 897.26 ml Free Water 100 ml IV Total 243.125 ml 747.26 ml Tube Feeding 150 ml 150 ml Output Urine Total 10 ml 0 ml Hemodialysis UF 2000 ml Current Medications Medications (Trade) Dose Ordered Sig/Brett Route PRN Reason Start Time Stop Time Status Last Admin Dose Admin Acetaminophen (Tylenol) 650 mg Q4H PRN ORAL FEVER 01/01/20 07:00 01/31/20 06:59 01/21/20 13:04 Acetaminophen (Tylenol) 650 mg Q4H PRN RECTAL Temp >100.5 01/03/20 09:30 02/02/20 09:29 01/03/20 12:18 Albuterol/ Ipratropium (Combivent Respimat) 1 puff Q4H PRN INH Shortness of Breath 01/05/20 20:00 02/04/20 19:59 Allopurinol (allopurinoL) 300 mg DAILY NG 01/07/20 10:45 02/06/20 10:44 01/22/20 08:47 Chlorhexidine Gluconate (Silvia-Hex 2%) 1 applic DAILY@1999 TOPIC 01/07/20 20:00 04/06/20 19:59 01/21/20 20:00 Dextrose (Dextrose 50%) 25 ml Q30M PRN IV Hypoglycemia 01/01/20 08:45 03/31/20 08:44 Dextrose (Dextrose 50%) 50 ml Q30M PRN IV Hypoglycemia 01/01/20 08:45 03/31/20 08:44 01/22/20 06:04 Diltiazem HCl (Cardizem Tab) 30 mg EVERY 8 HOURS ORAL 01/18/20 15:45 02/17/20 15:44 01/21/20 20:39 Diltiazem HCl (Cardizem) 15 mg Q12H PRN IVP For High Blood Pressure 01/03/20 07:00 02/02/20 06:59 Insulin Aspart (NovoLOG) Q6HR SUBQ 01/09/20 00:00 03/31/20 11:29 01/21/20 06:17 Levothyroxine Sodium (Synthroid) 200 mcg DAILY@0630 ORAL 01/12/20 06:30 02/11/20 06:29 01/22/20 06:05 Meropenem 500 mg/ Sodium Chloride 55 ml @ 110 mls/hr Q24H IVPB 01/19/20 21:00 01/24/20 20:59 01/21/20 20:39 Metoclopramide HCl (Reglan) 10 mg Q8H PRN IVP high residuals 01/17/20 10:30 02/16/20 10:29 01/22/20 08:50 Midodrine (Pro-Amatine) 10 mg THREE TIMES A DAY NG 01/16/20 13:00 04/15/20 12:59 01/22/20 08:47 Norepinephrine Bitartrate 16 mg/ Dextrose 516 ml @ 0 mls/hr Q24H IV 01/22/20 03:15 01/25/20 03:14 01/22/20 05:00 Pantoprazole (Protonix) 40 mg Q12HR IV 01/05/20 21:00 02/04/20 08:59 01/22/20 08:47 Phenylephrine HCl 50 mg/Dextrose 250 ml @ 30 mls/hr Q24H IV 01/22/20 08:45 01/25/20 08:35 01/22/20 10:04 Sevelamer Carbonate (Renvela) 800 mg THREE TIMES A DAY NG 01/14/20 13:00 04/13/20 12:59 01/22/20 08:47 Laboratory Tests 01/22/20 04:00: White Blood Count 20.2H, Red Blood Count 3.49L, Hemoglobin 9.5L, Hematocrit 31.1L, Mean Corpuscular Volume 89, Mean Corpuscular Hemoglobin 27.1, Mean Corpuscular Hemoglobin Concent 30.5L, Red Cell Distribution Width 18.3H, Platelet Count 8#*L, Mean Platelet Volume 11.7H, Neutrophils (%) (Auto) , Lymphocytes (%) (Auto) , Monocytes (%) (Auto) , Eosinophils (%) (Auto) , Basophils (%) (Auto) , Differential Total Cells Counted 100, Neutrophils % (Manual) 83H, Lymphocytes % (Manual) 5L, Monocytes % (Manual) 5, Eosinophils % (Manual) 0, Basophils % (Manual) 0, Band Neutrophils 7, Nucleated Red Blood Cells 9, Platelet Estimate DecreasedL, Platelet Morphology Normal, Polychromasia 1+, Hypochromasia 1+, Anisocytosis 2+, Sodium Level 141, Potassium Level 5.1, Chloride Level 102, Carbon Dioxide Level 15L, Anion Gap 24H, Blood Urea Nitrogen 53H, Creatinine 3.7H, Estimat Glomerular Filtration Rate 11.6, Glucose Level 69#L, Calcium Level 9.0, Total Bilirubin 1.6H, Direct Bilirubin 1.1H, Aspartate Amino Transf (AST/SGOT) 254H, Alanine Aminotransferase (ALT/SGPT) 48, Alkaline Phosphatase 153H, Total Protein 6.0L, Albumin 1.6L, Globulin 4.4, Albumin/Globulin Ratio 0.4L Height (Feet): 5 Height (Inches): 2.00 Weight (Pounds): 155 Naun Mandel MD Jan 22, 2020 10:38
--- NOTE | 2020-01-22 10:42 | Emergency Room Report ---
History of Present Illness General Chief Complaint: Dyspnea/Respdistress Source: Medical Record, PMD Present Illness Allergies: Coded Allergies: DOXYCYCLINE (Verified Allergy, Unknown, 04/04/19) RIFAMPIN (Verified Allergy, Unknown, 04/04/19) COVID-19 Screening Contact w/high risk pt: Yes Experienced COVID-19 symptoms?: Yes COVID-19 Testing performed DRAGLINE ENGINEER: No COVID-19 Screening: Positive COVID-19 Patient History Now: No Nursing Documentation-PMH Past Medical History: No History, Except For Hx Cardiac Problems: Yes - AFIB, ANEMIA, ATHEROSCLEROTIC HEART DISEASE Hx COPD: Yes Hx Cancer: No Hx Gastrointestinal Problems: Yes - METABOLIC ENCEPHALOPATHY, UNSPECIFIED DUODENAL ULCER WITH HEMORRHAGE Hx Neurological Problems: No Physical Exam Vital Signs Date Time Temp Pulse Resp B/P (MAP) Pulse Ox O2 Delivery O2 Flow Rate FiO2 01/18/20 07:00 99.9 86 24 127/53 (77) 98 01/18/20 07:21 90 01/18/20 08:00 Mechanical Ventilator Mechanical Ventilator Medical Decision Making Diagnostic Impression: Primary Impression: 2019 novel coronavirus detected Additional Impressions: Chronic respiratory failure Atrial fibrillation CHF (congestive heart failure) CO2 retention ER Course I was called to CODE BLUE on this patient who was admitted for COVID-19 pneumonia, respiratory failure previously intubated. Per bedside nurse patient became bradycardic to the 30s and then went into asystole. When I arrived CPR was in progress. Patient was given a total of 3 A of epinephrine, 1 amp of sodium bicarbonate and 1 amp of calcium gluconate. Patient remained in asystole throughout the code. Patient was pronounced at 10:20 AM. Last Vital Signs Date Time Temp Pulse Resp B/P (MAP) Pulse Ox O2 Delivery O2 Flow Rate FiO2 01/22/20 10:04 99 102/37 01/22/20 09:30 24 88 01/22/20 08:00 96.8 01/22/20 07:15 100 01/22/20 04:00 Mechanical Ventilator Mechanical Ventilator Mechanical Ventilator Disposition: ADMITTED INPATIENT Condition: Serious Referrals: NON PHYSICIAN (PCP) Aide Haji M.D. Jan 22, 2020 10:42
--- NOTE | 2020-01-22 11:00 | NUR ---
NURSE NOTES: Called [facility]. [facility] will contact ICU and picker / packer body as per patient's cousin Laly. Addendum: 01/22/20 at 1150 by TAMELA MIGUEL RN RN NURSE NOTES: Called [facility]. Mortuary will contact ICU and picker / packer body as per patient's cousin Laly. No belongings noted.
[2020-01-22] MEDS ORDERED: D5W 550ml IV ONE (12:04)
[2020-01-22] MEDS ORDERED: NS 275ml ONE (12:04)
--- NOTE | 2020-01-22 13:04 | Surgery Progress Note ---
Surgery Progress Note Subjective Procedure Performed left subclavian central venous catheter insertion Additional Comments late entry patient continued to decline this morning [facility] Last 24 Hour Vital Signs Date Time Temp Pulse Resp B/P (MAP) Pulse Ox O2 Delivery O2 Flow Rate FiO2 01/22/20 12:00 102 01/22/20 10:04 66 58/32 01/22/20 10:00 80 23 95/18 (43) 87 01/22/20 10:00 95/18 01/22/20 09:30 91 24 93/37 (55) 88 01/22/20 09:00 85/43 01/22/20 09:00 95 24 79/41 (54) 89 01/22/20 08:30 100 22 85/43 (57) 89 01/22/20 08:00 Mechanical Ventilator Mechanical Ventilator Mechanical Ventilator 01/22/20 08:00 96.8 100 22 85/45 (58) 90 01/22/20 08:00 85/45 01/22/20 08:00 100 01/22/20 07:41 102 01/22/20 07:30 103 23 91/48 (62) 89 01/22/20 07:15 101 22 96/44 (61) 88 01/22/20 07:15 99 24 100 01/22/20 07:00 90/53 01/22/20 07:00 104 23 90/53 (65) 89 01/22/20 06:30 106 24 102/37 (58) 88 01/22/20 06:00 97.8 111 24 88/43 (58) 85 01/22/20 06:00 101/50 01/22/20 06:00 109 80/38 01/22/20 05:30 109 24 80/38 (52) 82 01/22/20 05:00 95/37 01/22/20 05:00 115 24 77/38 (51) 85 01/22/20 04:30 101.7 113 24 90/52 (65) 82 01/22/20 04:00 100 01/22/20 04:00 115 24 84/44 (57) 81 01/22/20 04:00 Mechanical Ventilator Mechanical Ventilator Mechanical Ventilator 01/22/20 04:00 113 01/22/20 03:54 110 24 100 01/22/20 03:30 113 24 80/43 (55) 80 01/22/20 03:00 115 24 90/38 (55) 71 01/22/20 02:47 95/37 01/22/20 02:30 118 24 93/41 (58) 72 01/22/20 02:00 116 24 91/38 (55) 70 01/22/20 01:37 79/32 01/22/20 01:00 113 24 79/32 (48) 70 01/22/20 00:45 124 24 99/38 (58) 67 01/22/20 00:30 119 24 103/45 (64) 68 01/22/20 00:15 121 24 100/38 (58) 67 01/22/20 00:00 100 01/22/20 00:00 98.8 126 23 107/44 (65) 69 01/22/20 00:00 Mechanical Ventilator Mechanical Ventilator Mechanical Ventilator 01/22/20 00:00 122 01/21/20 23:54 117 24 100 01/21/20 23:30 127 23 112/39 (63) 70 01/21/20 23:00 131 24 117/46 (69) 73 01/21/20 22:35 103 24 76/34 (48) 77 01/21/20 22:33 94/56 01/21/20 22:30 120 24 115/43 (67) 77 01/21/20 22:22 112 24 94/46 (62) 74 01/21/20 22:18 103 24 81/43 (56) 78 01/21/20 22:15 99 24 75/26 (42) 76 01/21/20 22:11 102 24 75/39 (51) 79 01/21/20 22:02 105 24 81/43 (56) 77 01/21/20 22:00 108 24 85/44 (58) 76 01/21/20 21:30 116 24 102/50 (67) 74 01/21/20 21:00 116 24 130/53 (78) 83 01/21/20 20:39 110 135/49 01/21/20 20:30 117 24 138/43 (74) 92 01/21/20 20:00 100 01/21/20 20:00 119 01/21/20 20:00 114 24 129/61 (83) 93 01/21/20 20:00 Mechanical Ventilator Mechanical Ventilator Mechanical Ventilator 01/21/20 19:30 104 24 115/44 (67) 93 01/21/20 19:00 111 24 126/56 (79) 93 01/21/20 18:00 110 24 135/49 (77) 92 01/21/20 17:00 107 24 104/45 (64) 91 01/21/20 16:00 Mechanical Ventilator Mechanical Ventilator Mechanical Ventilator 01/21/20 16:00 101 01/21/20 16:00 100 01/21/20 16:00 98.8 106 24 104/50 (68) 91 01/21/20 15:02 109 24 100 01/21/20 15:00 114 23 117/50 (72) 88 01/21/20 14:03 121 01/21/20 14:00 113 24 119/62 (81) 88 01/21/20 13:34 99.8 I&O Intake and Output 01/21/20 01/22/20 19:00 07:00 Intake Total 493.125 ml 983.82 ml Output Total 2010 ml 0 ml Balance -1516.875 ml 983.82 ml Free Water 100 ml IV Total 243.125 ml 803.82 ml Tube Feeding 150 ml 180 ml Output Urine Total 10 ml 0 ml Hemodialysis UF 2000 ml Laboratory Tests Test 01/22/20 04:00 White Blood Count 20.2 K/UL (4.8-10.8) H Red Blood Count 3.49 M/UL (4.20-5.40) L Hemoglobin 9.5 G/DL (12.0-16.0) L Hematocrit 31.1 % (37.0-47.0) L Mean Corpuscular Volume 89 FL (80-99) Mean Corpuscular Hemoglobin 27.1 PG (27.0-31.0) Mean Corpuscular Hemoglobin Concent 30.5 G/DL (32.0-36.0) L Red Cell Distribution Width 18.3 % (11.6-14.8) H Platelet Count 8 K/UL (150-450) #*L Mean Platelet Volume 11.7 FL (6.5-10.1) H Neutrophils (%) (Auto) % (45.0-75.0) Lymphocytes (%) (Auto) % (20.0-45.0) Monocytes (%) (Auto) % (1.0-10.0) Eosinophils (%) (Auto) % (0.0-3.0) Basophils (%) (Auto) % (0.0-2.0) Differential Total Cells Counted 100 Neutrophils % (Manual) 83 % (45-75) H Lymphocytes % (Manual) 5 % (20-45) L Monocytes % (Manual) 5 % (1-10) Eosinophils % (Manual) 0 % (0-3) Basophils % (Manual) 0 % (0-2) Band Neutrophils 7 % (0-8) Nucleated Red Blood Cells 9 /100 WBC Platelet Estimate Decreased L Platelet Morphology Normal Polychromasia 1+ Hypochromasia 1+ Anisocytosis 2+ Sodium Level 141 MMOL/L (136-145) Potassium Level 5.1 MMOL/L (3.5-5.1) Chloride Level 102 MMOL/L (98-107) Carbon Dioxide Level 15 MMOL/L (21-32) L Anion Gap 24 mmol/L (5-15) H Blood Urea Nitrogen 53 mg/dL (7-18) H Creatinine 3.7 MG/DL (0.55-1.30) H Estimat Glomerular Filtration Rate 11.6 mL/min (>60) Glucose Level 69 MG/DL (74-106) #L Calcium Level 9.0 MG/DL (8.5-10.1) Total Bilirubin 1.6 MG/DL (0.2-1.0) H Direct Bilirubin 1.1 MG/DL (0.0-0.3) H Aspartate Amino Transf (AST/SGOT) 254 U/L (15-37) H Alanine Aminotransferase (ALT/SGPT) 48 U/L (12-78) Alkaline Phosphatase 153 U/L (46-116) H Total Protein 6.0 G/DL (6.4-8.2) L Albumin 1.6 G/DL (3.4-5.0) L Globulin 4.4 g/dL Albumin/Globulin Ratio 0.4 (1.0-2.7) L Plan Problems: (1) Acute on chronic systolic (congestive) heart failure (2) CO2 retention (3) BORIS (acute kidney injury) (4) Shock liver Assessment & Plan: Hypotensive septic acute elevation in LFTs AST ALT thousands alk phos elevated. Likely shock from hypotension and acute episode. Labs trending down. IV fluid hydration. No acute intervention. Hold on imaging. Line reviewed. No bleeding noted. All 3 ports functional. Chest x-ray reviewed. Drop in hemoglobin unlikely related to line. Will monitor. Trend labs. Transfuse PRN. And are improvement in position of previously malpositioned endotracheal tube, tip now projecting 1-2 cm above the garrett. Interim placement of an orogastric tube, tip of which projects beyond the edge of the image, presumably well within the stomach. Interim placement of a left subclavian central venous catheter, tip of which projects at the level of the innominate venous confluence. No pneumothorax. Bilateral infiltrates are again demonstrated, unchanged. Impression: Improved and now satisfactory position of endotracheal tube Interim left subclavian central venous catheter placement, no radiographically evident complication Interim orogastric intubation, apparently satisfactory Unchanged bilateral infiltrates (5) Atrial fibrillation (6) Diabetes mellitus (7) CHF (congestive heart failure) (8) Hypothyroidism Assessment & Plan: DAILY ESTIMATED NEEDS: Needs based on Critical care 54kg abw 22-30 kcals/kg 9452-6504 total kcals 1.25-2 g protein/kg 68-108 g total protein 20-25 mL/kg 1457-3440 total fluid mLs NUTRITION DIAGNOSIS: Swallowing difficulty r/t resp status as evidenced by pt adm w/ covid 19 ++, on bipap, now s/p code blue, intubated, on OGT feeds. CURRENT TF:VITAL AF 1.2 @ 55ml/hr x22 hrs ENTERAL NUTRITION RECOMMENDATIONS: VITAL AF 1.2 @ 55ml/hr x 22 hrs to provide 1210, 1452kcal, 91g prot, 981ml free water * Maintain current TF * Hold 1 hr before and after Synthroid * HOB over 30 degrees/ water flush per MD If renal fxn cont to worsen (creat 3.2 w/ phos 6.1 on 01/12) -> rec TF change to Nepro @ goal rate of 35ml/hr x 22 hrs to provide 770ml, 1386kcal, 62g prot (1.15g/kg), 560ml free water ADDITIONAL RECOMMENDATIONS: 1) Maintain calibrated bed scale wts daily 2) Monitor renal fxn and lytes, need for renal TF (creat worsening 3.2, phos 6.1) 3) Skin integrity: TF @ goal provides 100% RDI Odell BID 4) Monitor BGs, need for additional hypoglycemics (9) Chronic respiratory failure Assessment & Plan: Intubated intensive care unit weaning vent. ET tube in place. Chest x-ray reviewed. (10) History of hypertension (11) 2019 novel coronavirus detected Assessment & Plan: COVID positive as per ID and pulmonology appreciate input and care. Continue vent support wean as tolerated. (12) Acute respiratory failure due to COVID-19 Satinder Olivera Jan 22, 2020 13:03
--- NOTE | 2020-01-23 12:32 | NUR ---
CASE MANAGEMENT: Faxed clinical info (face sheet /ER MD report/progress notes 01-21-20 thru 01-22-20) to [facility] @ #[phone]. REF# [id number]
--- NOTE | 2020-01-24 13:11 | Discharge Summary ---
Discharge Summary Discharge Summary _ SUMMARY DATE OF ADMISSION: 12/31/2028 DATE OF EXPIRATION: 01/22/2020 REASON FOR ADMISSION: 85 years old female with past medical history of atrial fibrillation, coronary atherosclerotic heart disease, COPD, anemia, diabetes mellitus, hypothyroidism, resident of senior care facility, was sent for evaluation due to hypoxia.. Patient was hypoxic and required 100% nonrebreather mask. Laboratory work-up revealed no leukocytosis. D-dimer 0.87, ferritin 1762, CRP 16.7 and LDH 321. Lactic acid 0.7. Glucose 149. Stable electrolytes. BUN 29, creatinine 0.9. Troponin 0.062, proBNP 3923. EKG revealed sinus rhythm, no acute ischemic changes. Urinalysis revealed few bacteria, no pyuria, negative leukocyte esterase. Chest x-ray demonstrated findings likely consistent with pulmonary edema. Cardiomegaly noted. Rapid COVID-19 in emergency room was positive. Patient received IV Decadron. ABG showed CO2 retention. Patient was switched to BiPAP, and subsequently ABG revealed improvement in CO2 with continued respiratory acidosis. Expiratory pressure was subsequently increased . Patient was admitted to isolation room for further management. CONSULTANTS: farmworker vegetable Dr. Gaming pulmonary/critical care Dr. Graves ID specialist Dr. Cook openstack cloud consulting architect Dr. Mandel [facility] COURSE: Patient admitted to isolation room to ASIF and started on broad-spectrum antibiotics. Patient was kept n.p.o. Patient was on BiPAP Echocardiogram revealed preserved ejection fraction of 65%. No evidence of left ventricular hypertrophy. No evidence of wall motion abnormality. Moderate tricuspid regurgitation. Right ventricular systolic pressure of 96 consistent with severe pulmonary hypertension. CODE BLUE was called on 01/04 since patient was found to be in asystole after she removed BiPAP. CODE BLUE initiated as per ACLS protocol. Patient was orally intubated with return of spontaneous circulation and subsequently was transferred to intensive care unit for further management. Ventilator support and pulmonary toilet provided . Chest x-ray post intubation showed right mainstem intubation . Emergency room physician pulled back the ET approximately 3 cm. Repeated ABG were stable. Ventilator support and pulmonary toilet provided . Patient was follow-up with chest x-ray and ABG. Ventilator settings titrated based on ABG results. Patient received received steroids total of 10 days and completed 5 days of Remdesivir. Inflammatory markers were closely monitored. Patient started on empiric antibiotic as per ID specialist recommendation due to persistent leukocytosis. Patient was on Cardizem drip due to atrial fibrillation with rapid ventricular response After rate was controlled patient , Cardizem drip discontinued. Elevated troponin was most likely due to CPR as per farmworker vegetable. Venous duplex bilateral extremity revealed no evidence of acute DVT. DVT prophylaxis provided. Renal parameters and electrolytes were closely monitored ; electrolytes corrected as needed, and nephrotoxic's were avoided . Renal ultrasound revealed no evidence of hydronephrosis. Creatinine continued to rise. Hemodialysis catheter was placed . Patient started on hemodialysis with close monitoring of volumes, renal parameters and electrolytes as per openstack cloud consulting architect recommendation. GI prophylaxis provided. LFT noted to be elevated, presumed likely due to shock liver, but were trending down Blood sugar was managed with sliding scale of insulin. Strict aspiration precaution maintained. Nutritional support provided. Antibiotics regimen further optimized as per ID specialist recommendation. Blood culture revealed Staph epidermidis , most likely contaminant as per ID specialist. Repeated blood culture on 01/18 were negative. Sputum culture revealed Klebsiella pneumonia ESBL and Trish albicans. Patient continued to have intermittent fevers. Leukocytosis trended down but still remained significantly elevated. Hemoglobin and hematocrit were closely monitored with goal to keep hemoglobin above 7. Patient undergone transfusion of total of 4 units of packed red blood cells while in the hospital. Patient also noted to have severe thrombocytopenia ; on the day of expiration platelets count -8 Severe thrombocytopenia was most likely due to myelosuppression secondary to sepsis. On 01/14 patient was reintubated by emergency room physician due to incorrect position of ETT. On 01/21 CODE BLUE was called due to asystole. CODE BLUE initiated as per ACLS protocol. Despite all resuscitative efforts, patient remained in asystole throughout the code. Patient subsequently was pronounced at 10:20 AM on 01.21. Cause of : cardiopulmonary arrest. FINAL DIAGNOSES: Status post cardiopulmonary arrest secondary to asystole x 2 Septic shock COVID-19 pneumonia Acute hypoxemic hypercapnic respiratory failure requiring intubation Chronic respiratory failure Respiratory acidosis /CO2 retention Acute on chronic diastolic congestive heart failure Acute kidney injury, requiring initiation of hemodialysis Shock liver Atrial fibrillation with rapid ventricular response \ Anoxic encephalopathy Severe pulmonary hypertension Elevated troponin , likely due to CPR Severe thrombocytopenia ( likely due to myelosuppression due to sepsis) Anemia COPD Former smoker Diabetes mellitus Hypothyroidism History of hypertension I have been assigned to dictate discharge summary for this account. Yeltiza Marmolejo NP Jan 24, 2020 13:11
== END 2020-01-22 10:20 | disposition expired | DRG 870 ==
LOC: EDBD 00:01 → EMR 00:19 → 2W 00:48 → EDBEDREQ 04:07 → 2W 01-03 14:50 → ICU 01-05 08:17
PROC: 0BH17EZ Insertion of Endotracheal Airway into Trachea, Via Natural or Artificial Opening (ICD-10-PCS; principal; 2020-01-05)
PROC: 5A1955Z Respiratory Ventilation, Greater than 96 Consecutive Hours (ICD-10-PCS; principal; 2020-01-05)
PROC: 05H633Z Insertion of Infusion Device into Left Subclavian Vein, Percutaneous Approach (ICD-10-PCS; principal; 2020-01-05)
PROC: 5A1D70Z Performance of Urinary Filtration, Intermittent, Less than 6 Hours Per Day (ICD-10-PCS; 2020-01-14)
PROC: 05HM33Z Insertion of Infusion Device into Right Internal Jugular Vein, Percutaneous Approach (ICD-10-PCS; 2020-01-14)
PROC: 0BH17EZ Insertion of Endotracheal Airway into Trachea, Via Natural or Artificial Opening (ICD-10-PCS; 2020-01-15)
DX: A41.9 Sepsis, unspecified organism (principal); U07.1 COVID-19; J12.89 Other viral pneumonia; I50.23 Acute on chronic systolic (congestive) heart failure; J96.22 Acute and chronic respiratory failure with hypercapnia; J96.21 Acute and chronic respiratory failure with hypoxia; K72.00 Acute and subacute hepatic failure without coma; R65.21 Severe sepsis with septic shock; J44.0 Chronic obstructive pulmonary disease with (acute) lower respiratory infection; N17.9 Acute kidney failure, unspecified; E87.0 Hyperosmolality and hypernatremia; G93.1 Anoxic brain damage, not elsewhere classified; I11.0 Hypertensive heart disease with heart failure; E11.9 Type 2 diabetes mellitus without complications; I48.0 Paroxysmal atrial fibrillation; D69.6 Thrombocytopenia, unspecified; I25.10 Atherosclerotic heart disease of native coronary artery without angina pectoris; E03.9 Hypothyroidism, unspecified; E78.00 Pure hypercholesterolemia, unspecified; M06.9 Rheumatoid arthritis, unspecified; K21.9 Gastro-esophageal reflux disease without esophagitis; R13.10 Dysphagia, unspecified; D64.9 Anemia, unspecified; I27.20 Pulmonary hypertension, unspecified
CPT/HCPCS: 36415; 36569; 71045; 74018; 76770; 76937; 80053; 80069; 80162; 80202; 81001; 81003; 82248; 82550; 82553; 82607; 82728; 82746; 82803; 82962; 82977; 83540; 83550; 83605; 83615; 83690; 83735; 83880; 84100; 84300; 84439; 84443; 84481; 84484; 84550; 85007; 85025; 85379; 85610; 85651; 85730; 86140; 86706; 86850; 86900; 86901; 86920; 87040; 87070; 87081; 87086; 87181; 87205; 87324; 92950; 93005; 93306; 93970; 94002; 94003; 94660; 94664; 96365; 96367; 96375; 99291; J0171; J1815; J2370; J2765; J3490; J7030; U0002